=== PATIENT | male | born 1975 | race Caucasian/White ===

== ENCOUNTER 2022-03-21 08:01 | Emergency (ER) | payer MEDICAID, SELFPAY ==
[2022-03-21] VITALS (41 sets, daily range): BP systolic 134–159; BP diastolic 84–102; PULSE 67–106; RESP 7–27; TEMP 36.7; O2SAT 95–99
--- NOTE | 2022-03-21 08:00 | RT.EKG_ITS ---
APPROVED REPORT Exam: Resting ECG Reason for Exam: sob Patient Location: E HR:100 bpm ECG Measurements Heart Rate 100 AXIS SC 159 P 48 QRSd 93 QRS 60 QT 357 T 44 QTc 462 Conclusion Sinus tachycardia...rate> 99 Low voltage, precordial leads...precordial leads <1.0mV. Sinus. Normal axis. No STEMI. I have reviewed and interpreted ECG and agree with software generated interpretation.
--- NOTE | 2022-03-21 08:16 | DI.RAD_ITS ---
Exam(s) XR PORTABLE CHEST AP EXAM: XR PORTABLE CHEST AP CLINICAL HISTORY: shortness of breath, chest pain TECHNIQUE: 2D digital imaging was performed of the chest. One image was obtained. An AP view was ob tained. COMPARISON: No exams were available for comparison FINDINGS: MEDIASTINUM: Normal. HEART: Normal. PULMONARY VASCULATURE: Normal. LUNGS: Clear. PLEURAL SPACE: No pleural effusion or pneumothorax. BONE:Within normal limits for the patient's age. OTHER FINDINGS:Normal. IMPRESSION: No acute pulmonary findings. DATA REPOSITORY: RADIATION DOSE DELIVERED:
[2022-03-21 08:37] LABS: Abs Immature Grans 0.03 10^3/uL (0.0-0.06); Absolute Basophil Count 0.06 10^3/uL (0.0-0.2); Absolute Eosinophil Count 0.12 10^3/uL (0.0-0.7); Absolute Monocyte Count 0.53 10^3/uL (0.1-0.8); Absolute Neutrophil Count 4.78 10^3/uL (1.2-6.7); Basophils % 0.8; Eosinophils % 1.5; HCT 40.6 % (40.0-50.0); HGB 13.1 g/dL (13.5-17.5); Immature Grans % 0.4; Lymphocytes % 29.4; MCH 27.9 pg (27.0-33.0); MCHC 32.3 % (32.0-36.0); MCV 86 fL (80-95); MPV 9.9 fL (8.0-11.0); Monocytes % 6.8; Neutrophils % 61.1; Platelet Count 246 10^3/uL (130-400); RDW 13.9 % (11.8-14.1); WBC 7.82 10^3/uL (4.4-10.8)
--- NOTE | 2022-03-21 08:44 | ED.GENADUL_ITS ---
Discharge Plan Disposition Patient Disposition: HOME Condition: Stable Discharge Details Clinical Impression: Weakness, Pain, dental, Otitis externa Primary Care Provider: Jj Lopez ED Provider: Cait Rodriguez Home Meds and New Rx's Prescriptions: New ciprofloxacin-dexamethasone [Ciprodex] 0.3-0.1 % drops,suspension 4 drp otic (ear) BID 7 Days Qty: 7.5 0RF amoxicillin-pot clavulanate 875-125 mg tablet 1 tab PO BID Qty: 14 0RF ondansetron 4 mg tablet,disintegrating 4 mg PO DAILY 3 Days Qty: 3 0RF No Action cyclobenzaprine 10 mg tablet 1 tab PO HS Label Comments: TAKE 1 TABLET BY MOUTH AT BEDTIME gabapentin 600 mg tablet 1 tab PO DAILY Label Comments: TAKE ONE TABLET BY MOUTH TWICE A DAY lisinopril 20 mg tablet 1 tab PO DAILY Label Comments: TAKE ONE TABLET BY MOUTH EVERY DAY omeprazole 40 mg capsule,delayed release(DR/EC) 1 cap PO BID Label Comments: TAKE ONE CAPSULE BY MOUTH TWICE A DAY meloxicam 7.5 mg tablet 1 tab PO DAILY Label Comments: TAKE ONE TABLET BY MOUTH TWICE A DAY Discharge Instructions Instructions: Otitis Externa (ED), Weakness (ED), Toothache (ED) Additional Instructions: Take Zofran as needed for nausea and vomiting Follow-up with your primary care doctor tomorrow Take the Augmentin for your dental pain and see your dentist today to schedule appointment Use the eardrops as prescribed Please return or be reassessed should you develop new or worsening complaints Take Tylenol as needed for your headache Referrals: Jj Lopez [Primary Care Provider] - 1 day Discharge Data Discharge Date/Time-TO BE ENTERED AT DEPARTURE: 03/21/22 12:04 Medical Decision Making 2 troponins and EKG negative Patient reports dental pain and left otitis externa, treated with Augmentin and Ciprodex drops Had a stress test performed 1 year ago that did not show any abnormality per my review Patient feeling improvement at time of discharge home Will need close outpatient reassessment in 24 to 48 hours with primary care physician Discharged home in stable condition with stable vital Given low threshold to return with new or worsening complaints Medical Records Medical records reviewed: Yes I reviewed the patient's medical records. Lab Data Lab results reviewed: Yes I reviewed the patient's lab results. HPI General Date/Time Provider Initiated Documentation: 03/21/22 08:15 . HPI Narrative: This 46-year-old male presents with report of nausea, light hearing and chest, nausea started this morning. Patient states he felt great yesterday with exertion. 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 He had a dull ache in his chest several times with exertion. Denies any calf pain or swelling. 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 Smokes tobacco on a daily basis. Father had for stroke at 65. Mother on nitroglycerin but unsure of her cardiac history. Reports he had a stress test a year and a half ago. Unsure of results. Denies any cough, fever or known sick contacts. Feels short short of breath with exertion. Related Data Home Medications Medication Instructions Recorded Confirmed amoxicillin 875 mg-potassium 1 tab PO BID #14 tabs 03/21/22 clavulanate 125 mg tablet ciprofloxacin 0.3 %-dexamethasone 4 drp otic (ear) BID 7 days #7.5 mL 03/21/22 0.1 % ear drops,suspension (Ciprodex) cyclobenzaprine 10 mg tablet 1 tab PO HS 03/21/22 03/21/22 gabapentin 600 mg tablet 1 tab PO DAILY 03/21/22 03/21/22 lisinopril 20 mg tablet 1 tab PO DAILY 03/21/22 03/21/22 meloxicam 7.5 mg tablet 1 tab PO DAILY 03/21/22 03/21/22 omeprazole 40 mg capsule,delayed 1 cap PO BID 03/21/22 03/21/22 release ondansetron 4 mg disintegrating 4 mg PO DAILY 3 days #3 tabs 03/21/22 tablet Previous Rx's Medication Instructions Recorded amoxicillin 875 mg-potassium 1 tab PO BID #14 tabs 03/21/22 clavulanate 125 mg tablet ciprofloxacin 0.3 %-dexamethasone 4 drp otic (ear) BID 7 days #7.5 mL 03/21/22 0.1 % ear drops,suspension (Ciprodex) ondansetron 4 mg disintegrating 4 mg PO DAILY 3 days #3 tabs 03/21/22 tablet Allergies Allergy/AdvReac Type Severity Reaction Status Date / Time cephalexin [From Keflex] Allergy Severe GI Bleeding Unverified 03/21/22 08:30 General Stated Complaint: Chest Pain HAYLEY: 3 Review of Systems All systems reviewed & are unremarkable except as noted in HPI and below PFSH All Active Problems (Updated 03/21/22 @ 11:51 by MIS Vogel) Weakness (Acute) Pain, dental (Acute) Otitis externa (Acute) Social History Smoking/Tobacco Use Status: Current every day Tobacco Type: cigarettes Smoking risk assessment performed?: Yes Alcohol Intake: never Drug use: Never Substance use type: does not use Do you feel safe at home: Yes Do you feel safe in your relationship?: Yes Exam Const General: cooperative, comfortable and no acute distress [facility] Throat image: 1. Fracture noted, no soft tissue swelling, nontender, no evidence of Yudith's angina, no evidence of deep space infection Other: Left otitis externa, serosanguineous drainage noted from last ear, no mastoid tenderness Eyes Pupils: PERRL Neck Other: No stridor Resp Effort & Inspection: normal respiratory effort Auscultation: clear to auscultation bilaterally Cardio Rate: regular rate Rhythm: regular rhythm Other: no GI Inspection: normal to inspection Other: nTender abdominal exam, no abdominal bruit or pulsatile mass Skin General skin exam: no rashes or lesions noted Neuro General: patient alert and patient oriented x3 Extrem Other: no calf swelling or tenderness Course Vital Signs Vital signs: Vital Signs Temperature 36.7 C 03/21/22 08:06 Pulse 106 H 03/21/22 08:06 Respiratory Rate 18 03/21/22 08:06 Blood Pressure 158/92 H 03/21/22 08:06 Pulse Oximetry 99 03/21/22 08:06 Temperature 36.7 C 03/21/22 08:06 Temperature Source Temporal Artery Scan 03/21/22 08:06 Pulse 81 03/21/22 08:31 Pulse 89 03/21/22 08:31 Respiratory Rate 14 03/21/22 08:31 Respiratory Effort Non-Labored 03/21/22 08:23 Respiratory Depth Normal 03/21/22 08:23 Respiratory Pattern Normal 03/21/22 08:23 Blood Pressure 134/84 03/21/22 08:31 Blood Pressure Mean 97 03/21/22 08:31 Blood Pressure Position Sitting 03/21/22 08:06 Pulse Oximetry 96 03/21/22 08:31 Oxygen Delivery Method Room Air 03/21/22 08:06 Oxygen Flow Rate 0 03/21/22 08:06 Lab/Test Results Lab/Test Results: Laboratory Tests Range/Units 03/21/22 08:21 WBC (4.4-10.8) 10^3/uL 7.82 RBC (4.36-5.78) 10^6/uL 4.70 Hgb (13.5-17.5) g/dL 13.1 L Hct (40.0-50.0) % 40.6 MCV (80-95) fL 86 MCH (27.0-33.0) pg 27.9 MCHC (32.0-36.0) % 32.3 RDW (11.8-14.1) % 13.9 Plt Count (130-400) 10^3/uL 246 MPV (8.0-11.0) fL 9.9 Immature Gran % 0.4 Neutrophils % 61.1 Lymphocytes % 29.4 Monocytes % 6.8 Eosinophils % 1.5 Basophils % 0.8 Nucleated RBC % (0.0-0.3) % 0.0 Absolute Neutrophils (1.2-6.7) 10^3/uL 4.78 Absolute Lymphocytes (1.2-3.4) 10^3/uL 2.30 Absolute Monocytes (0.1-0.8) 10^3/uL 0.53 Absolute Eosinophils (0.0-0.7) 10^3/uL 0.12 Absolute Basophils (0.0-0.2) 10^3/uL 0.06 PAWSS Have you Been Recently Intoxicated or Drunk Within the Last 30 days?: No Have you Ever Experienced Previous Episodes of Alcohol Withdrawal?: No Have you ever Experienced Withdrawal Seizures?: No Have you ever Experienced Delirium Tremens(DT)s?: No Have you ever undergone Alcohol Rehabilitation Treatment (i.e, inpt ot outpatient treatment programs)?: No Have you ever Experienced Blackouts?: No Have you ever Combined Alcohol with other Downers within the last 90 days?: No Have you ever Combined Alcohol with any other Substance of Abuse during the last 90 days?: No Result: 0
[2022-03-21] MEDS: Aspirin 81 MG CHEW 324 MG CH (08:47)
[2022-03-21] MEDS: Ondansetron 4 MG/2 ML VIAL IVP (08:47)
[2022-03-21] MEDS: Normal Saline 500 ML IV (08:47)
[2022-03-21 08:58] LABS: ALT 32 U/L (16-63); AST 17 U/L (15-37); Alkaline Phosphatase 79 U/L (46-116); Anion Gap 6.2 mmol/L (3-11); BUN 15 mg/dL (7-18); Bilirubin, Total 0.2 mg/dL (0.2-1.0); CO2 28.8 mmol/L (21.0-32.0); CREATININE 1.2 mg/dL (0.70-1.30); Calcium 8.5 mg/dL (8.5-10.1); Chloride 104 mmol/L (98-107); Glucose 141 mg/dL (74-106); Magnesium 1.8 mg/dL (1.8-2.4); Potassium 4.1 mmol/L (3.5-5.1); Sodium 139 mmol/L (136-145); Total Protein 6.7 g/dL (6.4-8.2); Troponin I < 50 ng/L (<or=60)
[2022-03-21 08:59] LABS: Source Nasal/Nares
--- OUTSIDE RECORDS SUMMARY | 2022-03-21 09:28 | XMS_ITS | Continuity of Care Document ---
:1975 Author Organization [facility] Address [address] [place] [address] Care Team Providers Name Role Phone Carolina Aguirre Primary Care Physician Kwaku Joshi Attending Physician Allergies, Adverse Reactions, Alerts Allergen Type Severity Reaction Last Updated Verified Status cephalexin Allergy unknown June 29, 2020 Y Ac tive Medications Active Medications Medication Dose Units Route Sig Qty Start Date Status Gabapentin 300 MG ORAL THREE TIMES A DAY PRN For Pain April 08, 2020 Active Ibuprofen 600 MG ORAL THREE TIMES A DAY PRN For Pain April 08, 2020 Active Discontinued Medications Medication Dose Units Route Sig Qty Start Date Discontinu ed Date Status Levofloxacin 750 MG ORAL DAILY 10 April 08, 2020 Octob er 2019 Discontinued Problem List Active Problems Medical Problem Onset Date Status Epididymo-orchitis Active Inactive/Resolved Problems Medical Problem Onset Date Status Testicular abscess Inactive Heart palpitations Inactive Vaso-vagal reaction Inactive Left epididymitis Inactive Procedures Procedure Date Status ECHO Complete June 18, 2020 completed INTERFACE ELECTROCARDIOGRAM June 10, 2020 completed US Testicles (Scrotal) June 04, 2020 completed US Testicles (Scrotal) April 23, 2020 completed Hip 2 vw Min RT April 08, 2020 completed Lumbar Spine 2-3 vw April 08, 2020 completed US Testicles (Scrotal) April 08, 2020 completed Relevant Diagnostic Tests and/or Laboratory Data Laboratory Results Test Date/Time Result Interp. Ref. Range Result Comment POC Urinalysis Method April 09, 2020 Clinitek Auto 8:35am Urine Color (Manual) April 09, 2020 Yellow 8:35am Urine Clarity (Manual) April 09, 2020 Clear 8:35am POC Urine Glucose April 09, 2020 Negative 8:35am POC Urine Bilirubin April 09, 2020 Negative Confirmation 8:35am Urine Ketones (Manual) April 09, 2020 Negative 8:35am Urine Specific [place] April 09, 2020 1.025 (Manual) 8:35am POC Urine RBC April 09, 2020 Trace Intact 8:35am Urine pH (Manual) April 09, 2020 5.5 8:35am POC Urine Protein April 09, 2020 Negative Confirmation 8:35am Urine Urobilinogen April 09, 2020 0.2 (Manual) 8:35am Urine Nitrite (Manual) April 09, 2020 Negative 8:35am Urine Leukocyte April 09, 2020 Negative Esterase (Manual) 8:35am White Blood Count June 11, 2020 11.14 1000/mm3 High 4.8-10.8 12:25am Red Blood Count June 11, 2020 5.37 M/mm3 4.70-6.00 12:25am Hemoglobin June 11, 2020 15.1 g/dL 14.0-18.0 12:25am Hematocrit June 11, 2020 46.7 % 42-52 12:25am Mean Corpuscular June 11, 2020 87.0 fL 80.0-94.0 Volume 12:25am Mean Corpuscular June 11, 2020 28.1 pg 27-31 Hemoglobin 12:25am Mean Corpuscular June 11, 2020 32.3 g/dL Low 33-37 Hemoglobin Concent 12:25am Red Cell Distribution June 11, 2020 14.1 % 11.5-14.5 Width 12:25am Platelet Count June 11, 2020 276 1000/mm3 140-440 12:25am Mean Platelet Volume June 11, 2020 10.3 fL 7.4-10.4 12:25am Neutrophils (%) (Auto) June 11, 2020 70.9 % 40.0-72. 0 12:25am Lymphocytes (%) (Auto) June 11, 2020 20.0 % 17-45 12:25am Monocytes (%) (Auto) June 11, 2020 6.3 % 3-11 12:25am Eosinophils (%) (Auto) June 11, 2020 1.6 % 0-3 12:25am Basophils (%) (Auto) June 11, 2020 0.7 % 0-1 12:25am Immature Granulocyte % June 11, 2020 0.5 % 0-1 (Auto) 12:25am Neutrophils # (Auto) June 11, 2020 7.89 1000/mm3 High 1.4-6.5 12:25am Lymphocytes # (Auto) June 11, 2020 2.23 1000/mm3 1.2-3.4 12:25am Monocytes # (Auto) June 11, 2020 0.70 1000/mm3 0.0-0.8 12:25am Eosinophils # (Auto) June 11, 2020 0.18 1000/mm3 0.0-0.7 12:25am Basophils # (Auto) June 11, 2020 0.08 1000/mm3 0.0-0.1 12:25am Absolute Immature June 11, 2020 0.1 0-1 Granulocyte (auto 12:25am Differential Method June 11, 2020 Automated 12:25am Sodium Level June 11, 2020 138 mmol/L 137-145 12:25am Potassium Level June 11, 2020 3.6 mmol/L 3.6-5.0 12:25am Chloride Level June 11, 2020 103 mmol/L 98-107 12:25am Carbon Dioxide Level June 11, 2020 29 mmol/L 22-30 12:25am Anion Gap June 11, 2020 6 Low 7-16 12:25am Blood Urea Nitrogen June 11, 2020 13 mg/dL 8-26 12:25am Creatinine June 11, 2020 0.97 mg/dL 0.66-1.25 12:25am Glomerular Filtration June 11, 2020 > 60 mL/min 60.0- Rate Calc 12:25am Glucose Level June 11, 2020 125 mg/dL High 70-100 12:25am Calcium Level June 11, 2020 9.1 mg/dL 8.4-10.2 12:25am Calcium Adjusted for June 11, 2020 9.3 mg/dL 8.4-10.2 Albumin 12:25am Total Bilirubin June 11, 2020 0.3 mg/dL 0.2-1.3 12:25am Aspartate Amino Transf June 11, 2020 34 U/L 17-59 (AST/SGOT) 12:25am Alanine June 11, 2020 48 U/L As of 01/08, the Reference Range for ALT/SGPT for adult patients has been updated. Aminotransferase 12:25am The Refe rence Range for ALT/SGPT has not been established for patients <18 years of age. (ALT/SGPT) Troponin I June 11, 2020 < 0.012 ng/mL 0-0.034 Refere nce Range: <0.034 ng/mL 12:25am AMI Cut-off 0 .120 ng/mL The result s of this assay can be falsely decreased in patients who consume Biotin. Total Protein June 11, 2020 7.4 g/dL 6.3-8.2 12:25am Albumin June 11, 2020 4.1 g/dL 3.5-5.0 12:25am Alkaline Phosphatase June 11, 2020 92 U/L 38-126 12:25am Chief Complaint and Reason for Visit Encounter Admit Date Chief Complaint Reason for Visit Departed Clinical June 04, 2020 Orchitis and epididymitis 2:17pm Hospital Discharge Instructions No known hospital discharge instructions. Hospital Discharge Medications Medication Dose Units Route Sig Qty Days Order Date Status In structions Gabapentin 300 MG ORAL April 08, Active TIMES A 2019 DAY PRN For Pain Ibuprofen 600 MG ORAL April 08, Active TIMES A 2019 DAY PRN For Pain Levofloxacin 750 MG ORAL DAILY April 08 ued 2019 Encounters Encounter Facility Location Admit/Visit Discharge/Departure Atte nding Date Date Provider Departed [facility] June 29June 29, 2020 Meri bowen [facility] 2019 2:41pm 3:05pm Kwaku agustinaer Services Office Visit Departed [facility] June 18June 18, 2020 Arianne hopkins [facility] 2019 [facility] June 10June 11, 2020 [facility] 2020 Gigi velez [facility] 2019 2:17pm 2:18pm [facility] 23[facility], 2020 Adi [facility] 2019 8:43am 8:44am [facility], [facility] April 09, 2020 9:40 am Adi [facility] 8:23am Kwaku ovider Services Office Visit Departed [facility] Emergency April 08, 2020 April 08, 2020 10:10p m [facility], 2020 April 08, 2020 10:07a m Timothy [facility] 10:06am [facility], 2020 April 08, 2020 12:39p m [facility] 10:03am Departed [facility] Emergency April 08, 2020 April 08, 2020 1:22am [facility] Department 12:35am Functional Status Query Response Date Recorded Comment Comprehension Ability Understands Concepts April 08, 2020 12:50am Query Response Date Recorded Comment Living Situation Home June 11, 2020 1:27am Immunizations No known immunizations. Plan of Care No Known Plan of Care Information Social History Query Response Date Recorded Comment Alcohol Use No June 11, 2020 1:19am Smoking Status Current every day smoker June 29, 2020 2:50pm Substance Use Treatment No June 11, 2020 1:19am Substance/Street Drug Use No June 11, 2020 1:19am alcohol intake frequency holidays/special occasions June 11 1:19am only Query Response Start Date Stop Date Smoking Status Current every day smoker Vital Signs Vital Reading Result Reference Range Collection Date/ Time Height 6 ft 4 in June 29, 2020 2:47pm Weight n/a Temperature 97.4 F 97.6 F-99.6 F June 29, 2020 2:47pm Pulse 114 BPM 60-100 June 29, 2020 2:47pm Respiration 18 RPM 12-24 June 29, 2020 2:47pm Pulse Oximetry 99 % 95-100 June 11, 2020 1:27am Blood Pressure Systolic 118 100-140 June 29, 2020 2:47pm Blood Pressure Diastolic 88 50-85 June 29, 2020 2:47pm Body Mass Index 53.5 April 09, 2020 8: 30am
--- OUTSIDE RECORDS SUMMARY | 2022-03-21 09:28 | XMS_ITS | Continuity of Care Document ---
:1975 Author Organization [facility] Address [address] [place] [address] Support Name Relationship Address Phone Jj Lopez JR Primary Care Provider Alicia FUENTES [phone] [address] [place] [address] Jj Lopez JR Referring Provider Arcadiaisatu FUENTES [address] [place] [address] Mackenzie Suarez Attending Provider [facility] [address] [place] [address] Allergies, Adverse Reactions, Alerts Allergen Type Severity Reaction Last Updated Verified Status cephalexin Allergy gi upset October 11, 2021 Y Ac tive Medications Active Medications Medication Dose Units Route Sig Qty Days Start Date St atus Gabapentin 300 MG ORAL THREE TIMES April 08, 2020 Active A DAY PRN For Pain Ibuprofen 600 MG ORAL THREE TIMES April 08, 020 Active A DAY PRN For Pain Metoprolol Tartrate 50 MG ORAL TWICE A DAY 60 February 22, 2021 Active Erythromycin 1 APPLIC LEFT EYE DAILY 3.5 February 22, 021 Active Cyclobenzaprine MG August 13, Active 2020 Gabapentin MG August 13, A ctive 2020 Meloxicam MG August 13, Ac tive 2020 Amoxicillin-Pot 1 TAB ORAL TWICE A DAY , Active Clavulanate 2021 [Augmentin] Discontinued Medications Medication Dose Units Route Sig Qty Days Start Date Discontin ued Status Date Levofloxacin 500 MG ORAL DAILY 10 19 AugustSeptember 09, Discontinued 2019 Levofloxacin 750 MG ORAL DAILY April 08June 2 0, Discontinued 2019 2019 Amoxicillin 875 MG ORAL TWICE A 14 August 14, Decemb er 12, Discontinued DAY 2020 2020 Problem List Active Problems Medical Problem Onset Date Status Multinodular goiter (nontoxic) Active Multinodular goiter (nontoxic) Active Epididymo-orchitis Active Change in bowel function Active Morbid obesity due to excess calories Ac tive Hearing loss, bilateral Active Smoker Active Inactive/Resolved Problems Medical Problem Onset Date Status Testicular abscess Inactive Heart palpitations Inactive Palpitations Inactive Acute viral syndrome Inactive Conjunctivitis Inactive Otitis media Inactive Vaso-vagal reaction Inactive Left acute suppurative otitis media Inac tive Left epididymitis Inactive Hypertension Inactive Procedures Procedure Date Status US Thyroid Soft Tissue Neck September 15, [address] Chest w/o Contrast September 08, 2021 completed US Testicles (Scrotal) February 01, 2021 completed DIAGNOSTIC COLONOSCOPY January 25, 2021 active INTERFACE ELECTROCARDIOGRAM December 23, 2020 completed Relevant Diagnostic Tests and/or Laboratory Data Laboratory Results Test Date/Time Result Interp. Ref. Range Result Comment White Blood Count December 23, 2020 8.70 1000/mm3 4.8-10.8 3:40am Red Blood Count December 23, 2020 5.05 M/mm3 4.70-6.00 3:40am Hemoglobin December 23, 2020 14.3 g/dL 14.0-18.0 3:40am Hematocrit December 23, 2020 43.3 % 42-52 3:40am Mean Corpuscular December 23, 2020 85.7 fL 80.0-94.0 Volume 3:40am Mean Corpuscular December 23, 2020 28.3 pg 27-31 Hemoglobin 3:40am Mean Corpuscular December 23, 2020 33.0 g/dL 33-37 Hemoglobin Concent 3:40am Red Cell December 23, 2020 13.9 % 11.5-14.5 Distribution Width 3:40am Platelet Count December 23, 2020 258 1000/mm3 140-440 3:40am Mean Platelet December 23, 2020 10.1 fL 7.4-10.4 Volume 3:40am Neutrophils (%) December 23, 2020 57.1 % 40.0-72.0 (Auto) 3:40am Lymphocytes (%) December 23, 2020 33.7 % 17-45 (Auto) 3:40am Monocytes (%) December 23, 2020 6.0 % 3-11 (Auto) 3:40am Eosinophils (%) December 23, 2020 2.2 % 0-3 (Auto) 3:40am Basophils (%) December 23, 2020 0.7 % 0-1 (Auto) 3:40am Immature December 23, 2020 0.3 % 0-1 Granulocyte % 3:40am (Auto) Neutrophils # December 23, 2020 4.97 1000/mm3 1.4-6.5 (Auto) 3:40am Lymphocytes # December 23, 2020 2.93 1000/mm3 1.2-3.4 (Auto) 3:40am Monocytes # (Auto) December 23, 2020 0.52 1000/mm3 0.0-0.8 3:40am Eosinophils # December 23, 2020 0.19 1000/mm3 0.0-0.7 (Auto) 3:40am Basophils # (Auto) December 23, 2020 0.06 1000/mm3 0.0-0.1 3:40am Absolute Immature December 23, 2020 0.0 0-1 Granulocyte (auto 3:40am Differential December 23, 2020 Automated Method 3:40am Sodium Level December 23, 2020 140 mmol/L 137-145 3:40am Potassium Level December 23, 2020 3.5 mmol/L Low 3.6-5.0 3:40am Chloride Level December 23, 2020 105 mmol/L 98-107 3:40am Carbon Dioxide December 23, 2020 29 mmol/L 22-30 Level 3:40am Anion Gap December 23, 2020 6 Low 7-16 3:40am Blood Urea December 23, 2020 11 mg/dL 8-26 Nitrogen 3:40am Creatinine December 23, 2020 0.85 mg/dL 0.66-1.25 3:40am Glomerular December 23, 2020 > 60 mL/min 60.0- Filtration Rate 3:40am Calc Glucose Level December 23, 2020 121 mg/dL High 70-100 3:40am Calcium Level December 23, 2020 8.5 mg/dL 8.4-10.2 3:40am Magnesium Level December 23, 2020 2.0 mg/dL 1.6-2.3 3:40am Troponin I December 23, 2020 < 0.012 ng/mL 0-0.034 Referen ce Range: <0.034 ng/mL 3:40am AMI Cut-off 0 .120 ng/mL The result s of this assay can be falsely decreased in patients who consume Biotin. SARS-CoV-2 RNA September 29, Negative Note: Thi s RT-PCR assay is intended for the in vitro qualitative detection of nucleic acid from SARS-CoV-2. (RT-PCR) 2021 8:54pm This test has not been FDA cleared or approved. This test has been authorized by the FDA under an Emergency Use Authorization (EUA) for use by authorized laboratories. Fact sheets fo r providers can be found at: fda.gov/media /065778/download Fact sheets fo r patients can be found at: Pikimal.gov/media /793259/download Chief Complaint and Reason for Visit Encounter Admit Date Chief Complaint Reason for Visit Departed October 11, 2021 NEW PATIENT Hearing loss, b ilateral Physician/Provider 11:31am Multinodular goiter (nontoxic) Office Visit Hospital Discharge Instructions No known hospital discharge instructions. Hospital Discharge Medications Medication Dose Units Route Sig Qty Days Order Status Instru ctions Date Levofloxacin 500 MG ORAL DAILY August Discontin ued 2019 Gabapentin 300 MG ORAL THREE April 08, Active TIMES 2020 A DAY PRN For Pain Ibuprofen 600 MG ORAL THREE April 08, Active TIMES 2020 A DAY PRN For Pain Levofloxacin 750 MG ORAL DAILY 10 April 08, Discontin ued 2019 Metoprolol 50 MG ORAL TWICE 60 February 22, Active Tartrate A DAY 2020 Erythromycin 1 APPLIC LEFT DAILY 3.5 February 22, Active EYE 2020 Cyclobenzaprine MG August Gabapentin MG August Meloxicam MG August Amoxicillin 875 MG ORAL TWICE 14 16 August Discontinu ed A DAY 2020 Amoxicillin-Pot 1 TAB ORAL TWICE 29 September Active Clavulanate A DAY 2021 Encounters Encounter Facility Location Admit/Visit Discharge/Departure Atte nding Date Date Provider Departed [facility] October 11October 11, 2021 Darrick concepcion, [facility] 2021 11:31am 12:03pm Mackenzie her Office Visit Departed [facility] September 29September 29, 2021 [facility] 2021 6:31pm 9:12pm Departed [facility] September 15September 15, 2021 Maria Teresa [facility] 2021 1:43pm 1:44pm [facility] Departed [facility] September 08September 08, 2021 Casper mercer JR [facility] 2020 5:01pm 5:02pm [facility] Departed [facility] August 13August 14, 2021 [facility], 2021 February 22, 2021 1:38pm [facility] 12:47pm Departed [facility] February 10, 2021 February 10, 2021 3:07pm Adi [facility] 2:44pm [facility] Office Visit Departed [facility] February 01, 2021 February 01, 2021 3[facility]30[facility] January [facility], 2021 January 25, 2021 3:09pm [facility], 2021 January 19, 2021 5[facility]03[facility] December 23December 23, 2020 5:05am [facility] 2020 3:24am [facility] December 07December 07, 2020 7:46am [facility] 7:45am Melody Encounter Diagnosis Onset Date Hearing loss, bilateral Multinodular goiter (nontoxic) Functional Status Query Response Date Recorded Comment Comprehension Ability Understands Concepts February 22, 2021 1:05pm Mood/Behavior Appropriate February 22, 2021 1:05pm Speech Appropriate September 29, 2021 9:00pm Query Response Date Recorded Comment Living Situation Home September 29, 2021 9:08pm With Family Immunizations Immunization Name Date Given Type Covid-19 30mcg/0.3ml Pfizer (Purple top) December 29, 2020 Historical Covid-19 30mcg/0.3ml Pfizer (Purple top) January 19, 2021 Historical Plan of Care No Known Plan of Care Information Social History Query Response Date Recorded Comment Alcohol Use Yes September 29, 2021 9:03pm rare Smoking Status Current every day smoker October 09, 2021 7:24pm Substance Use Treatment No September 29, 2021 9:03pm Substance/Street Drug Use Yes September 29, 2021 9:03p m occasional alcohol intake frequency holidays/special September 29, 2021 9:03p m occasions only substance use type marijuana September 29, 2021 9:03pm Query Response Start Date Stop Date Smoking Status Current every day smoker Vital Signs Vital Reading Result Reference Range Collection Date/ Time Height 6 ft 4 in September 29, 2021 8:52pm Weight n/a Temperature 98.2 F 97.6 F-99.6 F September 29, 2021 8:52pm Pulse 100 BPM 60-100 September 29, 2021 8:52pm Respiration 18 RPM 12-24 September 29, 2021 8:52pm Pulse Oximetry 100 % 95-100 September 29, 2021 8:52pm Blood Pressure Systolic 130 100-140 October 11, 2021 11:44am Blood Pressure Diastolic 90 50-85 Februar 2021 11:44am Body Mass Index 56.2 January 13, 2021 8:40 am
--- OUTSIDE RECORDS SUMMARY | 2022-03-21 09:28 | XMS_ITS | Continuity of Care Document ---
:1975 Author Organization [facility] Address [address] [place] [address] Support Name Relationship Address Phone Kwaku Joshi Attending Provider [facility] [phone], [place] [address] Kwaku Joshi Referring Provider [facility] [address] [facility], [place] [address] Jj Lopez JR Primary Care Provider Alicia FUENTES Unav[facility] ble [address] [place] [address] Allergies, Adverse Reactions, Alerts Allergen Type Severity Reaction Last Updated Verified Status cephalexin Allergy unknown September 24, 2020 Y Ac tive Medications Active Medications Medication Dose Units Route Sig Qty Days Start Date St atus Gabapentin 300 MG ORAL THREE TIMES A DAY PRN For April 08, 2020 Active Pain Ibuprofen 600 MG ORAL THREE TIMES A DAY PRN For April 08, 2020 Active Pain Discontinued Medications Medication Dose Units Route Sig Qty Days Start Date Discontin ued Status Date Levofloxacin 500 MG ORAL DAILY 10 August 30, Decem kenzie 31, Discontinued 2019 2019 Levofloxacin 750 MG ORAL DAILY April 08June 11 0, Discontinued 2019 2019 Problem List Active Problems Medical Problem Onset Date Status Epididymo-orchitis Active Inactive/Resolved Problems Medical Problem Onset Date Status Testicular abscess Inactive Heart palpitations Inactive Vaso-vagal reaction Inactive Left epididymitis Inactive Procedures Procedure Date Status US Testicles (Scrotal) August 27, 2020 completed CTA Angio Chest w/wo Contrast August 23, 2020 completed ECHO Complete June 18, 2020 completed INTERFACE [...] April 09, 2020 Negative 8:35am Urine Specific [place] April 09, 2020 1.025 (Manual) 8:35am POC Urine RBC April 09, 2020 Trace Intact 8:35am Urine pH (Manual) April 09, 2020 5.5 8:35am POC Urine Protein April 09, 2020 Negative Confirmation 8:35am Urine Urobilinogen April 09, 2020 0.2 (Manual) 8:35am Urine Nitrite (Manual) April 09, 2020 Negative 8:35am Urine Leukocyte April 09, 2020 Negative Esterase (Manual) 8:35am White Blood Count August 20, 12.00 1000/mm3 High 4.8-10.8 2019 11:01am Red Blood Count August 20, 5.37 M/mm3 4.70-6.00 2019 11:01am Hemoglobin August 20, 15.1 g/dL 14.0-18.0 2019 11:01am Hematocrit August 20, 47.3 % 42-52 2019 11:01am Mean Corpuscular August 20, 88.1 fL 80.0-94.0 Volume 2019 11:01am Mean Corpuscular August 20, 28.1 pg 27-31 Hemoglobin 2019 11:01am Mean Corpuscular August 20, 31.9 g/dL Low 33-37 Hemoglobin Concent 2019 11:01am Red Cell Distribution August 20, 14.0 % 11.5-14.5 Width 2019 11:01am Platelet Count August 20, 328 1000/mm3 141-689 6766 11:01am Mean Platelet Volume August 20, 10.9 fL High 7.4-10.4 2019 11:01am Neutrophils (%) (Auto) August 20, 62.1 % 40.0-72.0 2019 11:01am Lymphocytes (%) (Auto) August 20, 29.7 % 17-45 2019 11:01am Monocytes (%) (Auto) August 20, 5.9 % 3-11 2019 11:01am Eosinophils (%) (Auto) August 20, 1.3 % 0-3 2019 11:01am Basophils (%) (Auto) August 20, 0.6 % 0-1 2019 11:01am Immature Granulocyte % August 20, 0.4 % 0-1 (Auto) 2019 11:01am Neutrophils # (Auto) August 20, 7.45 1000/mm3 High 1.4-6.5 2019 11:01am Lymphocytes # (Auto) August 20, 3.56 1000/mm3 High 1.2-3.4 2019 11:01am Monocytes # (Auto) August 20, 0.71 1000/mm3 0.0-0.8 2019 11:01am Eosinophils # (Auto) August 20, 0.16 1000/mm3 0.0-0.7 2019 11:01am Basophils # (Auto) August 20, 0.07 1000/mm3 0.0-0.1 2019 11:01am Absolute Immature August 20, 0.1 0-1 Granulocyte (auto 2019 11:01am Differential Method August 20 Automated 2019 11:01am Sodium Level August 20, 137 mmol/L 527-354 3264 11:01am Potassium Level August 20, 4.3 mmol/L 3.6-5.0 2019 11:01am Chloride Level August 20, 105 mmol/L 98-107 2019 11:01am Carbon Dioxide Level August 20, 26 mmol/L 22-30 2019 11:01am Anion Gap August 20, 6 Low 7-16 2019 11:01am Blood Urea Nitrogen August 20, 12 mg/dL 8-2019 11:01am Creatinine August 20, 0.95 mg/dL 0.66-1.25 2019 11:01am Glomerular Filtration August 20, > 60 mL/min 60.0- Rate Calc 2019 11:01am Glucose Level August 20, 101 mg/dL High 70-100 2019 11:01am Calcium Level August 20, 9.4 mg/dL 8.4-10.2 2019 11:01am Calcium Adjusted for August 20, 9.6 mg/dL 8.4-10.2 Albumin 2019 11:01am Total Bilirubin August 20, 0.5 mg/dL 0.2-1.3 2019 11:01am Aspartate Amino Transf August 20, 34 U/L 17-59 (AST/SGOT) 2019 11:01am Alanine August 20, 50 U/L As of 01/09/20 , the Reference Range for ALT/SGPT for adult patients has been updated. Aminotransferase 2019 11:01 The Re ference Range for ALT/SGPT has not been established for patients <18 years of age. (ALT/SGPT) Troponin I June 11, 2020 < 0.012 ng/mL 0-0.034 Refere nce Range: <0.034 ng/mL 12:25 AMI Cut-off 0 .120 ng/mL The result s of this assay can be falsely decreased in patients who consume Biotin. Total Protein August 20, 7.3 g/dL 6.3-8.2 2019 11: Albumin August 20, 4.0 g/dL 3.5-5.0 2019 11: Cholesterol Level August 20, 229 mg/dL High 59-199 2019 11:01am HDL Cholesterol August 20, 33 mg/dL Low 40-60 The [place] ional Cholesterol Education Program (NCEP) has set the following guidelines (reference values) for cholesterol, HDL: 2019 11:01 Low HDL: <40 mg/dL Normal: 40-60 mg/dL Desirable: >60 mg/dL LDL Cholesterol August 20, 145.0 mg/dL High 0-129 2019 11:01 VLDL Cholesterol August 20, 51.0 mg/dL High 0-32 2019 11:01am Cholesterol/HDL Ratio August 20, 6.93 High 0-3.9 2019 11:01am Triglycerides Level August 20, 255 mg/dL High 0-149 2019 11:01am Alkaline Phosphatase August 20, 103 U/L 38-126 2019 11:01am Thyroid Stimulating August 20, 1.89 mlU/L 0.47-4.68 The results of Hormone (TSH) 2020 07:01am this assa y can be falsely decreased in patients who consume Biotin . Chief Complaint and Reason for Visit Encounter Admit Date Chief Complaint Reason for Visit Departed September 24, 2020 11:32am Follow Up Epididy mo-orchitis Physician/Provider Office Visit Hospital Discharge Instructions No known hospital discharge instructions. Hospital Discharge Medications Medication Dose Units Route Sig Qty Days Order Date Status In structions Levofloxacin 500 MG ORAL DAILY August Discontin ued 2019 Gabapentin 300 MG ORAL THREE April 08, Active TIMES A 2020 DAY PRN For Pain Ibuprofen 600 MG ORAL THREE April 08, Active TIMES A 2019 DAY PRN For Pain Levofloxacin 750 MG ORAL DAILY 10 April 08 ued 2019 Encounters Encounter Facility Location Admit/Visit Discharge/Departure Atte nding Date Date Provider Departed [facility] September 24, September 24, 2020 Meri bowen [facility] 2020 11:32am 11:54am Kwaku ovider Services Office Visit Departed [facility] September 17, September 17, 2020 Brett hart [facility] 2020 2:47pm 3:46pm Maty her Office Visit Departed [facility] August 27August 27, 2020 Meri bowen [facility] 2019 2:26pm 2:27pm [facility] 2020 [facility] 11:13am 11:14am [facility] Dep[facility] August 20August 20, 2020 [facility] 4:[facility] 4:18pm [facility] Departed [facility] June 29June 29, 2020 Meri bowen [facility] 2019 2:41pm 3:05pm Kwaku ovider Services Office Visit Departed [facility] June 18June 18, [facility] 2019 12:10pm 12:11pm [facility] 10June 11, 2020 [facility] 2019 11:46pm 1:27[facility]June 04[facility] 2020 [facility] 2:17pm 2:18pm [facility] April 23April 23, 2020 Adi [facility] 2019 8:43am 8:44am [facility] Departed [facility] April 09, 2020 April 09, 2020 9:40 am Adi [facility] 8:23am Kwaku ovider Services Office Visit Departed [facility] April 08, 2020 April 08, 2020 10:10p m [facility] 9[facility] April 08, 2020 April 08, 2020 10:07a [facility] 10:06am [facility] Departed [facility] April 08, 2020 April 08, 2020 12:39p m [facility] 10:03am Departed [facility] April 08, 2020 April 08, 2020 1:22am [facility] 12:35am Encounter Diagnosis Onset Date Epididymo-orchitis Functional Status Query Response Date Recorded Comment Comprehension Ability Understands Concepts April 08, 2020 12:50am Query Response Date Recorded Comment Living Situation Home June 11, 2020 1:27am Immunizations No known immunizations. Plan of Care No Known Plan of Care Information Social History Query Response Date Recorded Comment Alcohol Use No June 11, 2020 1:19am Smoking Status Current every day smoker September 24, 2020 11:38a m Substance Use Treatment No June 11, 2020 1:19am Substance/Street Drug Use No June 11, 2020 1:19am alcohol intake frequency holidays/special occasions June 11 1:19am only Query Response Start Date Stop Date Smoking Status Current every day smoker Vital Signs Vital Reading Result Reference Range Collection Date/ Time Height 6 ft 4 in September 24, 2020 11:36am Weight n/a Temperature 97.5 F 97.6 F-99.6 F September 24, 2020 11:36am Pulse 109 BPM 60-100 September 24, 2020 11:36am Respiration 18 RPM 12-24 September 24, 2020 11:36am Pulse Oximetry 99 % 95-100 June 11, 2020 1:27am Blood Pressure Systolic 132 100-140 September 24, 2020 11:36am Blood Pressure Diastolic 88 50-85 September 24, 2020 11:36am Body Mass Index 53.3 September 17, 2020 2:49pm
--- OUTSIDE RECORDS SUMMARY | 2022-03-21 09:28 | XMS_ITS | Continuity of Care Document ---
:1975 Author Organization [facility] Address [address] [place] [address] Care Team Providers Name Role Phone Jj Lopez JR Primary Care Physician Allergies, Adverse Reactions, Alerts Allergen Type Severity Reaction Last Updated Verified Status cephalexin Allergy gi upset September 29, 2021 Y Ac tive Medications Active Medications [...] APPLIC LEFT EYE DAILY 3.5 February 22, 2 021 Active Cyclobenzaprine MG August 13, Active [...] April 08June 11 0, Discontinued 2019 2019 Amoxicillin 875 MG ORAL TWICE A 14 August 14, Decemb er 12, Discontinued DAY 2020 2020 Problem List Active Problems Medical Problem Onset Date Status Epididymo-orchitis Active Acute viral syndrome Active Change in bowel function Active Morbid obesity due to excess calories Ac tive Left acute suppurative otitis media Acti ve Smoker Active Inactive/Resolved Problems Medical Problem Onset Date Status Testicular abscess Inactive Heart palpitations Inactive Palpitations Inactive Conjunctivitis Inactive Otitis media Inactive Vaso-vagal reaction Inactive Left epididymitis Inactive Hypertension Inactive Procedures Procedure [...] in patients who consume Biotin. SARS-CoV-2 RNA January 19, 2021 Negative This uri t is only for use under the Food and Drug Administration's (FDA) Emergency Use Authorization (EUA). This test has not been FDA cleared or approved. (RT-PCR) 1:00pm Not for screen ing. Nasal swabs ar e considered an acceptable sample type, however performance with this type has not been established. Negative resul ts do not preclude infection and should not be used as the sole basis of treatment or other patient management decisions. Negative results must be combined with clinical observations, patient history, and/or epidemiological information. Fact sheets fo r providers can be found at: [facility].gov/media /605901/download Fact sheets fo r patients can be found at: Better[employer].gov/hoopos.com /707124/download Chief Complaint and Reason for Visit Encounter Admit Date Chief Complaint Reason for Visit Departed Emergency September 29, 2021 6:31pm ALL COVID SYMPTOMS Hospital Discharge Instructions No known hospital discharge [...] Pain Levofloxacin 750 MG ORAL DAILY April 08, Discontin ued 2019 Metoprolol 50 MG ORAL TWICE 60 February 22, Active Tartrate A DAY 2020 Erythromycin 1 APPLIC LEFT DAILY 3.5 February 22, Active EYE 2020 Cyclobenzaprine MG August Gabapentin MG August Active 2020 Meloxicam MG August Active 2020 Amoxicillin 875 MG ORAL TWICE August Discontinu ed A DAY 2020 Amoxicillin-Pot 1 TAB ORAL TWICE 29 September Active Clavulanate A DAY 2021 Encounters Encounter Facility Location Admit/Visit Discharge/Departure Atte nding Date Date Provider Departed [facility] Emergency September 29September 29, 2021 [facility] Department 2021 6:31pm 9:12pm Departed [facility] September 15September 15, 2021 Maria Treesa [facility] 2021 1:43pm 1:44pm [facility] 08, 2021 Casper mercer JR [facility] 2020 5:01pm 5:02pm [facility] Departed [facility] Emergency August 13August 14, 2021 [facility] Department 2020 11:02pm 1:34am Departed [facility] Emergency February 22, 2021 February 22, 2021 1:38pm [facility] Department 12:47pm Departed [facility] February 10, 2021 February 10, 2021 3:07pm Adi [facility] 2:44pm [facility] Services Office Visit Departed [facility] DI February 01, 2021 February 01, 2021 [facility] Center Departed [facility] Surgical January 25, 2021 January 25, 2021 3:09pm Fabiola staton [facility] Center Services 12:06pm Renzo Care Departed [facility] January 19, 2021 January 19, 2021 5[facility]03[facility] December 23December 23, 2020 5:05am [facility] Department 2020 3:24am Departed [facility] December 07December 07, 2020 7:46am [facility] 2020 7:45am Melody Functional Status Query Response Date Recorded Comment Comprehension Ability Understands Concepts February 22, 2021 1:05pm Mood/Behavior Appropriate February 22, 2021 1:05pm Speech Appropriate September 29, 2021 9:00pm Query Response Date Recorded Comment Living Situation Home September 29, 2021 9:08pm With Family Immunizations Immunization Name Date Given Type Covid-19 30mcg/0.3ml Pfizer December 29, 2020 Historical Covid-19 30mcg/0.3ml Pfizer January 19, 2021 Historical Plan of Care Instructions Viral Syndrome (DC) Ear Infection ED Social History Query Response Date Recorded Comment Alcohol Use Yes September 29, 2021 9:03pm rare Smoking Status Current every day smoker September 29, 2021 9:03pm Substance Use Treatment No September 29, 2021 [...] 4 in September 29, 2021 8:52pm Weight 90.718 kg September 29, 2021 8:52pm Temperature 98.2 F 97.6 F-99.6 F September 29, 2021 8:52pm Pulse 100 BPM 60-100 September 29, 2021 8:52pm Respiration 18 RPM 12-24 September 29, 2021 8:52pm Pulse Oximetry 100 % 95-100 September 29, 2021 8:52pm Blood Pressure Systolic 159 100-140 September 29, 2021 8:52pm Blood Pressure Diastolic 89 50-85 September 29, 2021 8:52pm Body Mass Index 56.2 January 13, 2021 8:40 am
--- OUTSIDE RECORDS SUMMARY | 2022-03-21 09:28 | XMS_ITS | Continuity of Care Document ---
:1975 Author Organization [facility] Address [address] [place] [address] Care Team Providers Name Role Phone Jj Lopez JR Primary Care Physician Melody Robles Attending Physician Allergies, Adverse Reactions, Alerts Allergen [...] Laboratory Results Test Date/Time Result Interp. Ref. Result Comment Range POC Urinalysis Method April 09, 2020 Clinitek Auto 8:35am Urine Color (Manual) April 09, 2020 Yellow 8:35am Urine Clarity April 09, 2020 Clear (Manual) 8:35am POC Urine Glucose April 09, 2020 Negative 8:35am POC Urine Bilirubin April 09, 2020 Negative Confirmation 8:35am Urine Ketones April 09, 2020 Negative (Manual) 8:35am Urine Specific April 09, 2020 1.025 [place] (Manual) 8:35am POC Urine RBC April 09, 2020 Trace Intact 8:35am Urine pH (Manual) April 09, 2020 5.5 8:35am POC Urine Protein April 09, 2020 Negative Confirmation 8:35am Urine Urobilinogen April 09, 2020 0.2 (Manual) 8:35am Urine Nitrite April 09, 2020 Negative (Manual) 8:35am Urine Leukocyte April 09, 2020 Negative [...] 11:01am Platelet Count August 20, 328 1000/mm3 [phone] 11:01am Mean Platelet Volume August 20, 10.9 fL High 7.4-10.4 2019 11:01am Neutrophils (%) August 20, 62.1 % 40.0-72.0 (Auto) 2019 11:01am Lymphocytes (%) August 20, 29.7 % 17-45 (Auto) 2019 11:01am Monocytes (%) (Auto) August 20, 5.9 % 3-11 2019 11:01am Eosinophils (%) August 20, 1.3 % 0-3 (Auto) 2019 11:01am Basophils (%) (Auto) August 20, 0.6 % 0-1 2019 11:01am Immature Granulocyte August 20, 0.4 % 0-1 % (Auto) 2020 07: Neutrophils # (Auto) August 20, 7.45 1000/mm3 High 1.4-6.5 2020 07: Lymphocytes # (Auto) August 20, 3.56 1000/mm3 High 1.2-3.4 2020 07: Monocytes # (Auto) August 20, 0.71 1000/mm3 0.0-0.8 2020 07: Eosinophils # (Auto) August 20, 0.16 1000/mm3 0.0-0.7 2020 07: Basophils # (Auto) August 20, 0.07 1000/mm3 0.0-0.1 2019 11:01 Absolute Immature August 20, 0.1 0-1 Granulocyte (auto 2020 07: Differential Method August 20 Automated 2020 07: Sodium Level August 20, 137 mmol/L [phone] 11:01am Potassium Level August 20, 4.3 mmol/L 3.6-5.0 2020 07: Chloride Level August 20, 105 mmol/L 98-107 2020 07: Carbon Dioxide Level August 20, 26 mmol/L 22-30 2020 07: Anion Gap August 20, 6 Low 7-16 2020 07: Blood Urea Nitrogen August 20, 12 mg/dL 8-26 2020 07: Creatinine August 20, 0.95 mg/dL 0.66-1.25 2020 07: Glomerular Filtration August 20, > 60 mL/min 60.0- Rate Calc 2020 07: Glucose Level August 20, 101 mg/dL High 70-100 2020 07: Calcium Level August 20, 9.4 mg/dL 8.4-10.2 2020 07: Calcium Adjusted for August 20, 9.6 mg/dL 8.4-10.2 Albumin 2020 07: Total Bilirubin August 20, 0.5 mg/dL 0.2-1.3 2020 07: Aspartate Amino August 20, 34 U/L 17-59 Transf (AST/SGOT) 2020 07: Alanine August 20, 50 U/L As of 01/09/20 , the Reference Range for ALT/SGPT for adult patients has been updated. Aminotransferase 2020 07:01 The Re ference Range for ALT/SGPT has not been established for patients <18 years of age. (ALT/SGPT) Troponin I June 11, < 0.012 ng/mL 0-0.034 Reference R paris: <0.034 ng/mL 2019 12:25am AMI Cut-off 0.120 ng/mL The result s of this assay can be falsely decreased in patients who consume Biotin. Total Protein August 20, 7.3 g/dL 6.3-8.2 2019 11:01 Albumin August 20, 4.0 g/dL 3.5-5.0 2019 11: Cholesterol Level August 20, 229 mg/dL High 59-199 2019 11:01am HDL Cholesterol August 20, 33 mg/dL Low 40-60 The [place] ional Cholesterol Education Program (NCEP) has set the following guidelines (reference values) for cholesterol, HDL: 2019 11:01am Low HDL: <40 mg/dL Normal: 40-60 mg/dL Desirable: >60 mg/dL LDL Cholesterol August 20, 145.0 mg/dL High 0-129 2019 11:01am VLDL Cholesterol August 20, 51.0 mg/dL High 0-32 2019 11:01am Cholesterol/HDL Ratio August 20, 6.93 High 0-3.9 2019 11:01am Triglycerides Level August 20, 255 mg/dL High 0-149 2019 11:01am Alkaline Phosphatase August 20, 103 U/L 38-126 2019 11:01am Thyroid Stimulating August 20, 1.89 mlU/L 0.47-4.68 The results of this Hormone (TSH) 2019 11:01am assay can be falsely decrea sed in patients wh o consume Biotin . SARS-CoV-2 RNA December 07, 2020 Negative This t est is only for use under the Food and Drug Administration's (FDA) Emergency Use Authorization (EUA). This test has not been FDA cleared or approved. (RT-PCR) 11:00am Not for screen ing. Nasal swabs ar [...] r providers can be found at: fda.gov/media /089253/download Fact sheets fo r patients can be found at: fda.gov/uMentioned /420005/download Chief Complaint and Reason for Visit Encounter Admit Date Chief Complaint Reason for Visit Departed Clinical December 07, 2020 7:45am Contact with and (joseec anselmo) exposure to COVID-19 Hospital Discharge Instructions No known hospital discharge [...] DAILY 10 April 08, Discontin ued 2019 Encounters Encounter Facility Location Admit/Visit Discharge/Departure Atte nding Date Date Provider Departed [facility] December 07December 07, 2020 [facility] Melody Dep[facility]ed [facility] September 24September 24, 2020 Meri bowen, [facility] 2020 11:32am 11:54am Kwaku ovider Services Office Visit Departed [facility] September 17September 17, 2020 Brett hart [facility] 2020 2:47pm 3:46pm Maty her Office Visit Departed [facility] August 27August 27, [address] [facility] 2019 2:26pm 2:27pm [facility]August 23, 2020 [facility] 2019 11:13am 11:14am [facility] Dep[facility]ed [facility] August 20August 20, 2020 [facility] 4:17[facility] 4:18[facility] 29, 2020 Meri bowen [facility] 2019 2:41pm 3:05pm Kwaku ovider [facility] June 18June 18, [address] [facility] 2019 12:10pm 12:11pm [facility] June 10June 11, 2020 [facility] Department 2019 11:46pm 1:[facility] June 04June 04, 2020 [facility] 2019 2:17pm 2:18pm [facility] Departed [facility] April 23April 23, [address] [facility] 2019 8:43am 8:44am [facility] Departed [facility] April 09, 2020 April 09, 2020 9:40 am Adi [facility] 8:23am [facility] ovid Services Office Visit Departed [facility] Emergency April 08, 2020 April 08, 2020 10:10p m [facility] Department 9:44pm Departed [facility] DI April 08, 2020 April 08, 2020 10:07a m [facility] 10:06am [facility] Departed [facility] Emergency April 08, 2020 April 08, 2020 12:39p m [facility] Department 10:03am Departed [facility] Emergency April 08, 2020 April 08, [...]
--- OUTSIDE RECORDS SUMMARY | 2022-03-21 09:28 | XMS_ITS | Continuity of Care Document ---
:1975 Author Organization [facility] Address [address] [place] [address] Support Name Relationship Address Phone Kwaku Joshi Attending Provider [facility] Urology [address], [place] [address] Kwaku Joshi Referring Provider [facility] U[facility] [address], [place] [address] Jj Lopez JR Primary Care Provider Alicia FUENTES Unavaila ble [address] [place] [address] Allergies, Adverse Reactions, Alerts Allergen Type Severity [...] April 09, 2020 Negative 8:35am Urine Specific [place] April 09, 2020 1.025 (Manual) 8:35am POC [...] 11:01am Platelet Count August 20, 328 1000/mm3 127-065 6899 11:01am Mean Platelet Volume August 20, 10.9 [...] 11:01am Sodium Level August 20, 137 mmol/L [phone] 11:01am Potassium Level August 20, 4.3 mmol/L [...] Discharge/Departure Atte nding Date Date Provider Departed [facility] September 24, September 24, 2020 Meri bowen [facility] 2020 11:32am 11:54am Kwaku ovider Services Office Visit Departed [facility] September 17, September 17, 2020 Brett hart [facility] 2020 2:47pm 3:46pm Maty her Office Visit Departed [facility] August 27August 27, 2020 Meri bowen [facility] 2019 2:26pm 2:27pm [facility] August 23August 23, 2020 [facility] 11:13am 11:14am [facility] Departed [facility] August 20August 20, 2020 [facility] 4:17pm 4:18pm [facility] Departed [facility] June 29June 29, 2020 Meri bowen [facility] 2019 2:41pm 3:05pm Kwaku ovider Services Office Visit Departed [facility] June 18June 18, 2020 [facility] 2019 12:10pm 12:11pm [facility] June 10June 11, 2020 [facility] Department 2019 11:46pm 1:27am [facility] June 04June 04, 2020 [facility] 2:17pm 2:18pm [facility] April 23April 23, 2020 Adi [facility] 2019 8:43am 8:44am [facility] Departed [facility] April 09, 2020 April 09, 2020 9:40 am Adi [facility] 8:23am Kwaku ovider Services Office Visit Departed [facility] Emergency April 08, 2020 April 08, 2020 10:10p m [facility] Department 9:44pm [facility] April 08, 2020 April 08, 2020 10:07a [facility] 10:06am [facility] Departed [facility] April 08, 2020 April 08, 2020 12:39p m [facility] Department 10:03am Departed [facility] April 08, 2020 April 08, [...]
--- OUTSIDE RECORDS SUMMARY | 2022-03-21 09:29 | XMS_ITS | Continuity of Care Document ---
:1975 Author Organization [facility] Address [address] [place] [address] Support Name Relationship Address Phone Kwaku Joshi Attending Provider [facility] U[facility] [phone] [place] [address] Kwaku Joshi Referring Provider [facility] [address], [place] [address] Jj Lopez JR Primary Care Provider Alicia FUENTES Unavaila ble [address] [place] [address] Allergies, Adverse Reactions, Alerts Allergen Type Severity [...] April 09, 2020 Negative 8:35am Urine Specific [place] April 09, 2020 1.025 (Manual) 8:35am POC [...] 11:01am Platelet Count August 20, 328 1000/mm3 [phone] 11:01am Mean Platelet Volume August 20, 10.9 [...] 11:01am Sodium Level August 20, 137 mmol/L [phone] 11:01am Potassium Level August 20, 4.3 mmol/L [...] Discharge/Departure Atte nding Date Date Provider Departed [facility] September 24, September 24, 2020 Meri bowen [facility] 2020 11:32am 11:54am Kwaku ovider Services Office Visit Departed [facility] September 17, September 17, 2020 Brett hart [facility] 2020 2:47pm 3:46pm Maty her Office Visit Departed [facility] August 27August 27, 2020 Meri bowen [facility] 2019 2:26pm 2:27pm [facility] August 23August 23, 2020 [facility]per [facility]cer [facility] 2019 11:13am 11:14am [facility] Departed [facility] August 20August 20, 2020 [facility] 4:17pm 4:18pm [facility] Departed [facility] June 29June 29, 2020 Meri bowen [facility] 2019 2:41pm 3:05pm Kwaku ovider Services Office Visit Departed [facility] June 18June 18, 2020 [facility] 2019 12:10pm 12:11pm [facility] June 10June 11, 2020 [facility] Department 2019 11:46pm 1:27am [facility] June 04June 04, 2020 [facility] 2019 2:17pm 2:18pm [facility] April 23April 23, 2020 Adi [facility] 2019 8:43am 8:44am [facility] Departed [facility] April 09, 2020 April 09, 2020 9:40 am Adi [facility] 8:23am Kwaku ovider Services Office Visit Departed [facility] Emergency April 08, 2020 April 08, 2020 10:10p m [facility] 9:44pm [facility] April 08, 2020 April 08, 2020 10:07a duy [facility] 10:06am [facility] Departed [facility] April 08, 2020 April 08, 2020 12:39p m [facility] Department 10:03am Departed [facility] April 08, 2020 April [...]
--- OUTSIDE RECORDS SUMMARY | 2022-03-21 09:29 | XMS_ITS | Continuity of Care Document ---
:1975 Author Organization [facility] Address [address] [place] [address] Care Team Providers Name Role Phone Jj Lopez JR Primary Care Physician Jaye Morel Attending Physician Allergies, Adverse Reactions, Alerts Allergen Type Severity Reaction Last Updated Verified Status cephalexin Allergy gi upset February 10, 2021 Y Active Medications Active Medications Medication Dose Units Route Sig Qty Days Start Date St atus Gabapentin 300 MG ORAL THREE TIMES A March Active DAY PRN For Pain Ibuprofen 600 MG ORAL THREE TIMES A April 08, 2020 Active DAY PRN For Pain Metoprolol Tartrate 50 MG ORAL TWICE A DAY 60 February 22, 2021 Active Erythromycin 1 APPLIC LEFT EYE DAILY 3.5 February 22 021 Active Cyclobenzaprine MG August 13, Active 2020 Gabapentin MG August 13, A ctive 2020 Meloxicam MG August 13, Ac tive 2020 Discontinued Medications Medication Dose Units Route Sig Qty Days Start Date Discontin ued Status Date Levofloxacin 500 MG ORAL DAILY 10 19 AugustSeptember 09, Discontinued 2019 Levofloxacin 750 MG ORAL DAILY 10 April 08June 2 0, Discontinued 2019 2019 Amoxicillin 875 MG ORAL TWICE A 14 August 14, Decemb er 12, Discontinued DAY 2020 2020 Problem List Active Problems Medical Problem Onset Date Status Epididymo-orchitis Active Change in bowel function Active Morbid obesity due to excess calories Ac tive Smoker Active Inactive/Resolved Problems Medical Problem Onset Date Status Testicular abscess Inactive Heart palpitations Inactive Palpitations Inactive Conjunctivitis Inactive Otitis media Inactive Vaso-vagal reaction Inactive Left epididymitis Inactive Hypertension Inactive Procedures Procedure Date Status US Thyroid Soft Tissue Neck September 15, [address] Chest w/o Contrast September 08, 2021 [...] r providers can be found at: fda.gov/media /082888/download Fact sheets fo r patients can be found at: .gov/[place] /290952/download Chief Complaint and Reason for Visit Encounter Admit Date Chief Complaint Reason for Visit Departed Clinical September 15, 2021 1:43pm Thyroiditis, unspecifie d Hospital Discharge Instructions No known hospital discharge [...] MG August Amoxicillin 875 MG ORAL TWICE August Discontinu ed A DAY 2020 Encounters Encounter Facility Location Admit/Visit Discharge/Departure Atte nding Date Date Provider Departed [facility] September 15September 15, 2021 Maria Teresa [facility] 2021 1:43pm 1:44pm [facility] Departed [facility] September 08September 08, 2021 [facility] 5:01[facility] 5:02pm [facility] Departed [facility] Emergency August 13August 14, 2021 [facility] Department 2020 11:02pm 1:34am Departed [facility] Emergency February 22, 2021 February 22, 2021 1:38pm [facility] Department 12:47pm Departed [facility] February 10, 2021 February 10, 2021 3:07pm Adi [facility] 2:44pm [facility] Services Office Visit Departed [facility] February 01, 2021 February 01, 2021 3:30pm [facility] January 25, 2021 January 25, 2021 3:09pm Fabiola staton Surgical [facility] Services 12:06pm [facility] Emergency Department Departed [facility] January 19, 2021 January 19, 2021 5:03am Fabiola staton, [facility] [place] 5:02am [facility] December 23December 23, 2020 5:05am [facility] Department 2020 3:24am Departed [facility] Curbside December 07December 07, 2020 7:46am Mika dial [facility] Center 2020 7:45am [facility] 24[facility] 24, 2020 Meri bowen, [facility] 2020 11:32am 11:54am Kwaku arden Services Office Visit Departed [facility] September 17September 17, 2020 Brett hart [facility] 2020 2:47pm 3:46pm Maty her Office Visit Functional Status Query Response Date Recorded Comment Comprehension Ability Understands Concepts February 22, 2021 1:05pm Mood/Behavior Appropriate February 22, 2021 1:05pm Query Response Date Recorded Comment Living Situation With Family August 14, 2021 1:34am Immunizations Immunization Name Date Given Type Covid-19 30mcg/0.3ml Pfizer December 29, 2020 Historical Covid-19 30mcg/0.3ml Pfizer January 19, 2021 Historical Plan of Care No Known Plan of Care Information Social History Query Response Date Recorded Comment Alcohol Use Yes August 13, 2021 11:20pm rare Smoking Status Current every day smoker August 13, 2021 11:20p m Substance Use Treatment No August 13, 2021 11:20pm Substance/Street Drug Use Yes August 13, 2021 11:20 pm occasional alcohol intake frequency holidays/special August 13, 2021 11:20 pm occasions only substance use type marijuana August 13, 2021 11:20pm Query Response Start Date Stop Date Smoking Status Current every day smoker Vital Signs Vital Reading Result Reference Range Collection Date/ Time Height 6 ft 4 in August 13, 2021 11:07pm Weight 196.405 kg August 13, 2021 11:07pm Temperature 98.4 F 97.6 F-99.6 F August 13, 2021 11:07pm Pulse 88 BPM 60-100 August 14, 2021 1:30am Respiration 22 RPM 12-24 August 14, 2021 1:30am Pulse Oximetry 98 % 95-100 August 14, 2021 1:30am Blood Pressure Systolic 160 100-140 August 14, 2021 1:30am Blood Pressure Diastolic 100 50-85 [facility] 2020 1:30am Body Mass Index 56.2 January 13, 2021 8:40 am
--- OUTSIDE RECORDS SUMMARY | 2022-03-21 09:29 | XMS_ITS | Continuity of Care Document ---
:1975 Author Organization [facility] Address [address] [place] [address] Support Name Relationship Address Phone Jj Lopez JR Primary Care Provider Alicia FUENTES [address] [place] [id number] Mackenzie Suarez Attending Provider [facility] ENT [phone] [address] [place] [address] Mackenzie Suarez Referring Provider [facility] [address] [place] [address] Allergies, Adverse Reactions, Alerts Allergen Type Severity Reaction Last Updated Verified Status cephalexin Allergy gi upset November 23, 2021 Y Acti ve Medications Active Medications Medication Dose Units Route Sig Qty Days Start Date St atus Omeprazole 40 MG ORAL TWICE A DAY 60 November 23, 2021 Active Ibuprofen 600 MG ORAL THREE TIMES A April 08, 2020 Active DAY PRN For Pain Metoprolol Tartrate 50 MG ORAL TWICE A DAY 60 February 22, 2021 Active Cyclobenzaprine MG August 13, 2021 Active Gabapentin MG August 13 Active Meloxicam MG August 13 Active Amoxicillin-Pot 1 TAB ORAL TWICE A DAY 2021 Active Clavulanate [Augmentin] Discontinued Medications Medication Dose Units Route Sig Qty Days Start Date Discontin ued Status Date Levofloxacin 500 MG ORAL DAILY 10 19 AugustSeptember 09, Discontinued 2019 Gabapentin 300 MG ORAL THREE April 08November 23, 022 Discontinued TIMES A 2019 DAY PRN For Pain Levofloxacin 750 MG ORAL DAILY 10 April 08June 2 0, Discontinued 2019 2019 Erythromycin 1 APPLIC LEFT DAILY 3.5 February 22November 23, 2021 Discontinued EYE 2020 Amoxicillin 875 MG ORAL TWICE A 14 16 AugustAugust 21, Discontinued DAY 5, 2021 2021 Problem List Active Problems Medical Problem Onset Date Status Multinodular goiter (nontoxic) Active Multinodular goiter (nontoxic) Active Hoarseness of voice Active Epididymo-orchitis Active Change in bowel function [...] Hypertension Inactive Procedures Procedure Date Status US Gd FNA Breast/Node/Thyroid November 11, 2021 completed US Thyroid Soft Tissue Neck September 15, [...] fo r providers can be found at: fda.gov/[employer] /959307/download Fact sheets fo r patients can be found at: [employer]ra[employer].gov/[employer] /778678/download Chief Complaint and Reason for Visit Encounter Admit Date Chief Complaint Reason for Visit Departed November 23, 2021 Follow Up Hoarseness of vo ice Physician/Provider 8:02am Morbid obesit y due to excess calories Office Visit Multinodular goi ter (nontoxic) Smoker Hospital Discharge Instructions No known hospital discharge instructions. Hospital Discharge Medications Medication Dose Units Route Sig Qty Days Order Status Instru ctions Date Levofloxacin 500 MG ORAL DAILY August Discontin ued 2019 Omeprazole 40 MG ORAL TWICE 60 November 23, Active A DAY 2021 Gabapentin 300 MG ORAL THREE April 08, Discontinue d TIMES 2020 A DAY PRN For Pain Ibuprofen 600 MG ORAL THREE April 08, Active TIMES 2020 A DAY PRN For Pain Levofloxacin 750 MG ORAL DAILY 10 April 08, Discontin ued 2019 Metoprolol 50 MG ORAL TWICE 60 February 22, Active Tartrate A DAY 2020 Erythromycin 1 APPLIC LEFT DAILY 3.5 February 22, Discontin ued EYE 2020 Cyclobenzaprine MG August Gabapentin MG August Meloxicam MG August Amoxicillin 875 MG ORAL TWICE 14 16 August Discontinu ed A DAY 2020 Amoxicillin-Pot 1 TAB ORAL TWICE 29 September Active Clavulanate A DAY 2021 Encounters Encounter Facility Location Admit/Visit Discharge/Departure Atte nding Date Date Provider Departed [facility] November 23November 23, 2021 8:47am Erick, [facility] 2021 8:02am Mackenzie her Office Visit Departed [facility] November 11, 2021 November 11, 2021 10:49a [facility] Departed [facility] October 11October 11, 2021 Darrick concepcion, [facility] 2021 11:31am 12:03pm [facility] Office Visit Departed [facility] Emergency September 29, September 29, 2021 [facility] Department 2021 6:31pm 9:12[facility] 15September 15, 2021 Maria Teresa [facility] 2021 1:43pm 1:44pm [facility] Departed [facility] September 08September 08, 2021 Casper [facility]cer [facility] 2020 5:01pm 5:02pm [facility] August 13August 14, 2021 [facility] Department 2020 11:02pm 1:34am Departed [facility] Emergency February 22, 2021 February 22, 2021 1:38pm [facility] Department 12:47pm Departed [facility] February 10, 2021 February 10, 2021 3:07pm Adi [facility] 2:44pm [facility] Services Office Visit Departed [facility] February 01, 2021 February 01, 2021 3:30pm [facility] 3:29pm [facility] Surgical January 25, 2021 January 25, 2021 3:09pm [facility] 12:[facility] January 19, 2021 January 19, 2021 5:03am [facility] 5:[facility] Renzo [facility] December 23December 23, 2020 5:05am [facility] Department 2020 3:24am Departed [facility] December 07December 07, 2020 7:46am [facility] 2020 7:45am Melody Encounter Diagnosis Onset Date Hoarseness of voice Morbid obesity due to excess calories Multinodular goiter (nontoxic) Smoker Functional Status Query Response Date Recorded Comment [...] 19, 2021 Historical Plan of Care Instructions Thyroidectomy Social History Query Response Date Recorded Comment Alcohol Use Yes September 29, 2021 9:03pm rare Smoking Status Current every day smoker November 17, 2021 8:01am Substance Use Treatment No September 29, 2021 [...] Date/ Time Height 6 ft 4 in November 23, 2021 8 :06am Weight 190.7 kg November 23, 2021 8 :06am Temperature 98.2 F 97.6 F-99.6 F September 29, 2021 8:52pm Pulse 86 BPM 60-100 November 23, 2021 8 :06am Respiration 18 RPM 12-24 September 29, 2021 8:52pm Pulse Oximetry 99 % 95-100 November 23, 2021 8 :06am Blood Pressure Systolic 142 100-140 November 8:06am Blood Pressure Diastolic 90 50-85 November 082021 8:06am Body Mass Index 51.1 November 23, 2021 8 :06am
--- OUTSIDE RECORDS SUMMARY | 2022-03-21 09:29 | XMS_ITS | Continuity of Care Document ---
:1975 Author Organization [facility] Address [address] [place] [address] Care Team Providers Name Role Phone Carolina Aguirre Primary Care Physician Jj Lopez JR Attending Physician Unavailable Allergies, Adverse Reactions, Alerts Allergen Type Severity [...] Left epididymitis Inactive Procedures Procedure Date Status CTA Angio Chest w/wo Contrast August 23, [...] April 09, 2020 Negative 8:35am Urine Specific [place] April 09, 2020 1.025 (Manual) 8:35am POC [...] 11:01am Platelet Count August 20, 328 1000/mm3 [phone] 11:01am Mean Platelet Volume August 20, 10.9 [...] # (Auto) August 20, 0.07 1000/mm3 0.0-0.1 2020 07: Absolute Immature August 20, 0.1 0-1 Granulocyte (auto 2020 07: Differential Method August 20, Automated 2020 07: Sodium Level August 20, 137 mmol/L [phone] 11:01am Potassium Level August 20, 4.3 mmol/L 3.6-5.0 2019 Chloride Level August 20, 105 mmol/L 98-107 2019 Carbon Dioxide Level August 20, 26 mmol/L 22-30 2019 Anion Gap August 20, 6 Low 7-16 2019 Blood Urea Nitrogen August 20, 12 mg/dL 8-2019: Creatinine August 20, 0.95 mg/dL 0.66-1.25 2020 07: Glomerular Filtration August 20, > 60 mL/min 60.0- Rate Calc 2020 07: Glucose Level August 20, 101 mg/dL High 70-100 2020 07: Calcium Level August 20, 9.4 mg/dL 8.4-10.2 2019 Calcium Adjusted for August 20, 9.6 mg/dL 8.4-10.2 Albumin 2019 Total Bilirubin August 20, 0.5 mg/dL 0.2-1.3 2020 07: Aspartate Amino Transf August 20, 34 U/L 17-59 (AST/SGOT) 2020 07: Alanine August 20, 50 U/L As of 01/09/20 , the Reference Range for ALT/SGPT for adult patients has been updated. Aminotransferase 2020 07: The Re ference Range for ALT/SGPT has [...] Albumin August 20, 4.0 g/dL 3.5-5.0 2019 11:01 Cholesterol Level August 20, 229 mg/dL High [...] Ratio August 20, 6.93 High 0-3.9 2019 11:01 Triglycerides Level August 20, 255 mg/dL High 0-149 2019 11: Alkaline Phosphatase August 20, 103 U/L 38-126 2019 11:01 Thyroid Stimulating August 20, 1.89 mlU/L 0.47-4.68 The results of Hormone (TSH) 2020 07:01am this assa y can be falsely decreased in patients who consume Biotin . Hospital Discharge Instructions No known hospital discharge instructions. Hospital Discharge Medications Medication Dose Units Route Sig Qty Days Order Date Status In structions Gabapentin 300 MG ORAL April 08, Active TIMES A 2019 DAY PRN For Pain Ibuprofen 600 MG ORAL April 08, Active TIMES A 2019 DAY PRN For Pain Levofloxacin 750 MG ORAL DAILY April 08, Discontin ued 2019 Encounters Encounter Facility Location Admit/Visit Discharge/Departure Atte nding Date Date Provider Departed [facility] August 23August 23, 2020 Casper mercer JR, [facility] 2019 11:13am 11:14am [facility] Departed [facility] August 20August 20, 2020 Jessica FOX [facility] 2019 4:17pm 4:18pm [facility] June 29June 29, 2020 Meri bowen, [facility] 2019 2:41pm 3:05pm Kwaku ovider Services Office Visit Departed [facility] June 18, June 18, 2020 Mutjyotsnakr kellie [facility] 2019 12:10pm 12:11pm [facility] June 10June 11, 2020 [facility] Department 2019 11:46pm [facility]June 04, 2020 [facility] 2019 2:17pm 2:18pm [facility] April 23April 23, 2020 Adi [facility] 2019 8:43am 8:44am [facility] April 09, 2020 April 09, 2020 9:40 am Adi [facility] 8:23am [facility] ovider Services [facility] April 08, 2020 April 08, 2020 10:10p m [facility] Department 9:44pm [facility] April 08, 2020 April 08, 2020 10:07a [facility] 10:06am [facility] April 08, 2020 April 08, 2020 12:39p m [facility] Department 10:03am [facility] Emergency April 08, 2020 April 08, [...]
--- OUTSIDE RECORDS SUMMARY | 2022-03-21 09:29 | XMS_ITS | Continuity of Care Document ---
:1975 Author Organization [facility] Address [address] [place] [address] Support Name Relationship Address Phone Kwaku Joshi Attending Provider [facility] [address] [place] [address] Kwaku Joshi Referring Provider [facility] [address] [facility], [place] [address] Jj Lopez JR Primary Care Provider Alicia FUENTES [facility] [address] [place] [address] Allergies, Adverse Reactions, Alerts Allergen Type Severity [...] April 09, 2020 Negative 8:35am Urine Specific [place] April 09, 2020 1.025 (Manual) 8:35am POC [...] 11:01am Platelet Count August 20, 328 1000/mm3 [phone] 11:01am Mean Platelet Volume August 20, 10.9 [...] 11:01am Sodium Level August 20, 137 mmol/L [phone] 11:01am Potassium Level August 20, 4.3 mmol/L [...] Discharge/Departure Atte nding Date Date Provider Departed [facility] September 24, September 24, 2020 Meri bowen [facility] 2020 11:32am 11:54am Kwaku ovider Services Office Visit Departed [facility] September 17, September 17, 2020 Brett hart [facility] 2020 2:47pm 3:46pm Maty her Office Visit Departed [facility] August 27August 27, 2020 Meri bowen [facility] 2019 2:26pm 2:27pm [facility] 23August 23, 2020 [facility] 2019 11:13am 11:14am [facility] Departed [facility] August 20August 20, 2020 [facility] 4:17pm 4:18pm [facility] Departed [facility] June 29June 29, 2020 Meri bowen [facility] 2019 2:41pm 3:05pm Kwaku ovider Services Office Visit Departed [facility] June 18June 18, 2020 [facility] 2019 12:10pm 12:11pm [facility] June 10June 11, 2020 [facility] Department 2019 11:46pm 1:27am [facility] June 04June 04, 2020 [facility] 2019 2:17pm 2:18pm [facility] April 23April 23, 2020 Adi [facility] 2019 8:43am 8:44am [facility] Departed [facility] April 09, 2020 April 09, 2020 9:40 am Adi [facility] 8:23am Kwauk ovider Services Office Visit Departed [facility] Emergency April 08, 2020 April 08, 2020 10:10p m [facility] 9:44pm [facility] April 08, 2020 April 08, 2020 10:07a [facility] 10:06am [facility] Departed [facility] April 08, 2020 April 08, 2020 12:39p m [facility] Department 10:03am Departed [facility] Emergency April 08, 2020 April 08, [...]
--- OUTSIDE RECORDS SUMMARY | 2022-03-21 09:29 | XMS_ITS | Continuity of Care Document ---
:1975 Author Organization [facility] Address [address] [place] [address] Care Team Providers Name Role Phone Jj [...] r providers can be found at: fda.gov/media /165863/download Fact sheets fo r patients can be found at: fda.gov/media /502720/download Chief Complaint and Reason for Visit Encounter [...] Discharge/Departure Atte nding Date Date Provider Departed [facility] Emergency September 29September 29, 2021 [facility] Department 2021 6:31pm 9:12pm Departed [facility] September 15September 15, 2021 Maria Teresa [facility] 2021 1:43pm 1:44pm [facility] Departed [facility] September 08September 08, 2021 [facility]per [facility] 2020 5:01pm 5:02pm [facility] Departed [facility] Emergency August 13August 14, 2021 [facility] Department 2020 11:02pm 1:34am Departed [facility] February 22, 2021 February 22, 2021 1:38pm [facility] Department 12:47pm Departed [facility] February 10, 2021 February 10, 2021 3:07pm Adi [facility] 2:44pm Kwaku her Services Office Visit Departed [facility] February 01, 2021 February 01, 2021 3:30pm [facility] 3:29pm [facility] Departed [facility] Surgical January 25, 2021 January 25, 2021 3:09pm [facility] 12:06pm [facility] Departed [facility] January 19, 2021 January 19, 2021 5:03am [facility] 5:[facility] December 23December 23, 2020 5:05am [facility] Department 2020 3:24am Departed [facility] December 07December 07, 2020 7:46am [facility] 2020 7:45am Melody Functional Status Query Response [...]
--- OUTSIDE RECORDS SUMMARY | 2022-03-21 09:29 | XMS_ITS | Continuity of Care Document ---
:1975 Author Organization [facility] Address [address] [place] [address] Care Team Providers Name Role Phone Jj [...] EYE DAILY 3.5 February 22 021 Active Discontinued Medications Medication Dose Units Route Sig Qty Days Start Date Discontin ued Status Date Levofloxacin 500 MG ORAL DAILY 10 August 30, Decem kenzie 31, Discontinued 2019 2019 Levofloxacin 750 MG ORAL DAILY 10 April 08June 2 0, Discontinued 2019 2019 Problem List Active Problems Medical Problem Onset Date Status Epididymo-orchitis Active Conjunctivitis Active Change in bowel function Active Morbid obesity due to excess calories Ac tive Hypertension Active Smoker Active Inactive/Resolved Problems Medical Problem Onset Date Status Testicular abscess Inactive Heart palpitations Inactive Palpitations Inactive Vaso-vagal reaction Inactive Left epididymitis Inactive Procedures Procedure Date Status US Testicles (Scrotal) February 01, 2021 completed DIAGNOSTIC COLONOSCOPY January 25, 2021 active INTERFACE ELECTROCARDIOGRAM December 23, 2020 completed US Testicles (Scrotal) August 27, 2020 completed [...] 8:35am Urine Specific April 09, 2020 1.025 [place] (Manual) 8:35am POC Urine RBC April 09, 2020 Trace Intact 8:35am Urine pH (Manual) April 09, 2020 5.5 8:35am POC Urine Protein April 09, 2020 Negative Confirmation 8:35am Urine Urobilinogen April 09, 2020 0.2 (Manual) 8:35am Urine Nitrite April 09, 2020 Negative (Manual) 8:35am Urine Leukocyte April 09, 2020 Negative Esterase (Manual) 8:35am White Blood Count December 23, 2020 8.70 [...] g/dL 33-37 Hemoglobin Concent 3:40am Red Cell Distribution December 23, 2020 13.9 % 11.5-14.5 Width 3:40am Platelet Count December 23, 2020 258 1000/mm3 140-440 3:40am Mean Platelet Volume December 23, 2020 10.1 fL 7.4-10.4 3:40am Neutrophils (%) December 23, 2020 57.1 % 40.0-72.0 (Auto) 3:40am Lymphocytes (%) December 23, 2020 33.7 % 17-45 (Auto) 3:40am Monocytes (%) (Auto) December 23, 2020 6.0 % 3-11 3:40am Eosinophils (%) December 23, 2020 2.2 % 0-3 (Auto) 3:40am Basophils (%) (Auto) December 23, 2020 0.7 % 0-1 3:40am Immature Granulocyte December 23, 2020 0.3 % 0-1 % (Auto) 3:40am Neutrophils # (Auto) December 23, 2020 4.97 1000/mm3 1.4-6.5 3:40am Lymphocytes # (Auto) December 23, 2020 2.93 1000/mm3 1.2-3.4 3:40am Monocytes # (Auto) December 23, 2020 0.52 1000/mm3 0.0-0.8 3:40am Eosinophils # (Auto) December 23, 2020 0.19 1000/mm3 0.0-0.7 3:40am Basophils # (Auto) December 23, 2020 0.06 1000/mm3 0.0-0.1 3:40am Absolute Immature December 23, 2020 0.0 0-1 Granulocyte (auto 3:40am Differential Method December 23, 2020 Automated 3:40am Sodium Level December 23, 2020 140 mmol/L 137-145 3:40am Potassium Level December 23, 2020 3.5 mmol/L Low 3.6-5.0 3:40am Chloride Level December 23, 2020 105 mmol/L 98-107 3:40am Carbon Dioxide Level December 23, 2020 29 mmol/L 22-30 3:40am Anion Gap December 23, 2020 6 Low 7-16 3:40am Blood Urea Nitrogen December 23, 2020 11 mg/dL 8-26 3:40am Creatinine December 23, 2020 0.85 mg/dL 0.66-1.25 3:40am Glomerular Filtration December 23, 2020 > 60 mL/min 60.0- Rate Calc 3:40am Glucose Level December 23, 2020 121 mg/dL High 70-100 3:40am Calcium Level December 23, 2020 8.5 mg/dL 8.4-10.2 3:40am Calcium Adjusted for August 20, 9.6 mg/dL 8.4-10.2 Albumin 2019 11:01am Magnesium Level December 23, 2020 2.0 mg/dL 1.6-2.3 3:40am Total Bilirubin August 20, 0.5 mg/dL 0.2-1.3 2019 11:01am Aspartate Amino August 20, 34 U/L 17-59 Transf (AST/SGOT) 2019 11:01 Alanine August 20, 50 U/L As of 01/09/20 , the Reference Range for ALT/SGPT for adult patients has been updated. Aminotransferase 2019 11:01 The Re ference Range for ALT/SGPT has not been established for patients <18 years of age. (ALT/SGPT) Troponin I December 23, 2020 < 0.012 ng/mL 0-0.034 Referen ce Range: <0.034 ng/mL 3:40am AMI Cut-off 0 .120 ng/mL The result s of this assay can be falsely decreased in patients who consume Biotin. Total Protein August 20, 7.3 g/dL 6.3-8.2 2019 11:01am Albumin August 20, 4.0 g/dL 3.5-5.0 2019 11:01am Cholesterol Level August 20, 229 mg/dL High 59-199 2019 11:01am HDL Cholesterol August 20, 33 mg/dL Low 40-60 The [place] ional Cholesterol Education Program (NCEP) has set the following guidelines (reference values) for cholesterol, HDL: 2020 07:01am Low HDL: <40 mg/dL Normal: 40-60 mg/dL [...] 0.47-4.68 The results of this Hormone (TSH) 2020 07:01 assay can be falsely decrea sed in patients wh o consume Biotin . SARS-CoV-2 RNA January 19, 2021 Negative This [...] fo r providers can be found at: [employer].gov/Neventum /801520/download Fact sheets fo r patients can be found at: [employer].gov/Neventum /221993/download Chief Complaint and Reason for Visit Encounter Admit Date Chief Complaint Reason for Visit Departed Emergency February 22, 2021 12:47pm EYE COMPLAINT/SOB Hospital Discharge Instructions No known hospital discharge [...] ued 2019 Metoprolol 50 MG ORAL TWICE A 60 February 22, Active Tartrate DAY 2020 Erythromycin 1 APPLIC LEFT DAILY 3.5 February 22, Active EYE 2020 Encounters Encounter Facility Location Admit/Visit Discharge/Departure Atte nding Date Date Provider Departed [facility] Emergency February 22, 2021 February 22, 2021 1:38pm [facility] Department 12:47pm Departed [facility] February 10, 2021 February 10, 2021 3:07pm [facility] 2:44pm [facility] Services Office Visit Departed [facility] DI February 01, 2021 February 01, 2021 3:30pm [facility] January 25, 2021 January 25, 2021 3:09pm Fabiola staton Surgical [facility] Services 12:06pm [facility] Departed [facility] January 19, 2021 January 19, 2021 [facility] Renzo Dep[facility]ed [facility] Emergency December 23, December 23, 2020 5:05am [facility] Department 2020 3:24am Departed [facility] Curbside December 07, December 07, 2020 7:46am [facility] 2020 7:45am Melody Departed [facility] September 24, September 24, 2020 Meri bowen, [facility] 2020 11:32am 11:54am Kwaku ovider Services Office Visit Departed [facility] September 17, September 17, 2020 Brett hart [facility] 2020 2:47pm 3:46pm Maty ovider Office Visit Departed [facility] August 27August 27, 2020 Meri bowen [facility] 2019 2:26pm 2:27pm [facility] 23August 23, 2020 [facility]per [facility] 2019 11:13am 11:14am [facility] Dep[facility]ed [facility] August 20August 20, 2020 [facility] 4:17pm 4:18[facility] 2020 Meri bowen, [facility] 2019 2:41pm 3:05pm Kwaku ovider Services Office Visit Departed [facility] June 18June 18, 2020 Arianne hopkins [facility] 2019 12:10pm 12:11pm [facility] June 10June 11, 2020 [facility] Department 2019 11:46pm 1:27[facility] June 04June 04, 2020 [facility] 2019 2:17pm 2:18pm [facility] April 23April 23, 2020 Adi [facility] 2019 8:43am 8:44am [facility] Departed [facility] April 09, 2020 April 09, 2020 9:40 am [facility] 8:23am Kwaku ovider Services Office Visit Departed [facility] Emergency April 08, 2020 April 08, 2020 10:10p m [facility] Department 9:44pm Departed [facility] April 08, 2020 April 08, 2020 10:07a [facility] 10:06am [facility] Departed [facility] Emergency April 08, 2020 April 08, 2020 12:39p m [facility] Department 10:03am Departed [facility] Emergency April 08, 2020 April 08, 2020 1:22am [facility] Department 12:35am Functional Status Query Response Date Recorded Comment Comprehension Ability Understands Concepts February 22, 2021 1:05pm Mood/Behavior Appropriate February 22, 2021 1:05pm Query Response Date Recorded Comment Living Situation Home February 22, 2021 1:38pm With Family Immunizations Immunization Name Date Given Type Covid-19 30mcg/0.3ml Pfizer December 29, 2020 Historical Covid-19 30mcg/0.3ml Pfizer January 19, 2021 Historical Plan of Care Instructions High Blood Pressure (DC) Conjunctivitis ([facility]) ED COVID 19 General Instructions- decrease the spread of coronavirus ([facility]) Social History Query Response Date Recorded Comment Alcohol Use Yes February 22, 2021 1:25pm rare Smoking Status Current every day smoker February 22, 2021 1:25pm Substance Use Treatment No February 22, 2021 1:25pm Substance/Street Drug Use Yes February 22, 2021 1:25pm o ccasional alcohol intake frequency holidays/special occasions February 22 1:25pm only substance use type marijuana February 22, 2021 1:25pm Query Response Start Date Stop Date Smoking Status Current every day smoker Vital Signs Vital Reading Result Reference Range Collection Date/ Time Height 6 ft 3 in January 13, 2021 8:40 am Weight 198.673 kg February 22, 2021 12 :55pm Temperature 97.4 F 97.6 F-99.6 F February 22, 2021 12 :55pm Pulse 108 BPM 60-100 February 22, 2021 12 :55pm Respiration 22 RPM 12-24 February 22, 2021 12 :55pm Pulse Oximetry 97 % 95-100 February 22, 2021 12 :55pm Blood Pressure Systolic 144 100-140 February 22, 2021 12:55pm Blood Pressure Diastolic 101 50-85 February 12:55pm Body Mass Index 56.2 January 13, 2021 8:40 am
--- OUTSIDE RECORDS SUMMARY | 2022-03-21 09:29 | XMS_ITS | Continuity of Care Document ---
:1975 Author Organization [facility] Address [address] [place] [address] Care Team Providers Name Role Phone Jj [...] Heart palpitations Inactive Palpitations Inactive Conjunctivitis Inactive Vaso-vagal reaction Inactive Left epididymitis Inactive Hypertension Inactive Procedures Procedure Date Status US Testicles [...] 8:35am Urine Specific April 09, 2020 1.025 [place] (Manual) 8:35am POC Urine RBC April 09, [...] fo r providers can be found at: [employer].gov/Socialinus /954176/download Fact sheets fo r patients can be found at: [employer]gov/Socialinus /510034/download Chief Complaint and Reason for Visit Encounter [...] Discharge/Departure Atte nding Date Date Provider Departed [facility] Emergency February 22, 2021 February 22, 2021 1:38pm [facility] Department 12:47pm Departed [facility] February 10, 2021 February 10, 2021 3:07pm Adi [facility] 2:44pm [facility] Services Office Visit Departed [facility] DI February 01, 2021 February 01, 2021 3:30[facility] January 25, 2021 January 25, 2021 3:09pm Fabiola staton Surgical [facility] 12:06pm [facility] Departed [facility] January 19, 2021 January 19, 2021 5:03am [facility] 5:02am Renzo Departed [facility] Emergency December 23, December 23, 2020 5:05am [facility] Department 2020 3:24am Departed [facility] Curbside December 07, December 07, 2020 7:46am [facility] 2020 7:45am Melody Departed [facility] September 24, September 24, 2020 Meri bowen, [facility] 2020 11:32am 11:54am Kwaku ovider Services Office Visit Departed [facility] September 17, September 17, 2020 Brett hart [facility] 2020 2:47pm 3:46pm Maty ovider Office Visit Departed [facility] August 27August 27, 2020 Meri bowen [facility] 2019 2:26pm 2:27pm [facility] August 23August 23, 2020 [facility]per [facility] 2019 11:13am 11:14am [facility] Departed [facility] August 20August 20, 2020 [facility] 4:17pm 4:18pm [facility] June 29June 29, 2020 Meri bowen, [facility] 2019 2:41pm 3:05pm Kwaku ovider Services Office Visit Departed [facility] June 18June 18, 2020 Arianne hopkins [facility] 2019 12:10pm 12:11pm [facility] June 10June 11, 2020 [facility] Department 2019 11:46pm 1:27[facility] June 04June 04, 2020 [facility] 2019 2:17pm 2:18pm [facility] April 23April 23, 2020 Adi [facility] 2019 8:43am 8:44am [facility] Departed [facility] April 09, 2020 April 09, 2020 9:40 am Ad[facility] 8:23am Kwaku ovider [facility] Office Visit Departed [facility] April 08, 2020 April 08, 2020 10:10p m [facility] Department 9:44pm Departed [facility] April 08, 2020 April 08, 2020 10:07a [facility] 10:06am [facility] Departed [facility] April 08, 2020 April 08, 2020 12:39p m [facility] Department 10:03am Departed [facility] April 08, 2020 April 08, [...] Care Instructions High Blood Pressure (DC) Conjunctivitis ([facility]) ED COVID 19 General Instructions- decrease [...]
--- OUTSIDE RECORDS SUMMARY | 2022-03-21 09:29 | XMS_ITS | Continuity of Care Document ---
:1975 Author Organization [facility] Address [address] [place] [address] Care Team Providers Name Role Phone Carolina Aguirre Primary Care Physician Carmen Bañuelos Attending Physician Allergies, Adverse Reactions, Alerts Allergen Type Severity Reaction Last Updated Verified Status cephalexin Allergy unknown April 09, 2020 Y Activ e Medications Active Medications Medication Dose Units Route Sig Qty Start Date Status Oxycodone 5 MG ORAL TWICE A DAY PRN April 09, 2020 Active Gabapentin 300 MG ORAL THREE TIMES A DAY PRN For Pain April 08, 2020 Active Ibuprofen 600 MG ORAL THREE TIMES A DAY PRN For Pain April 08, 2020 Active Levofloxacin 750 MG ORAL DAILY 10 April 08, 2020 Activ e Problem List Active Problems Medical Problem Onset [...] US Testicles (Scrotal) April 08, 2020 completed Chest 2 vw June 25, 2019 completed INTERFACE ELECTROCARDIOGRAM June 25, 2019 completed Relevant Diagnostic Tests and/or Laboratory Data [...] April 09, 2020 Negative 8:35am Urine Specific [place] April 09, 2020 1.025 (Manual) 8:35am POC [...] June 11, 2020 92 U/L 38-126 12:25am Advance Directives Advance Directive Response Recorded Date/Time Do we have a copy on file here at [facility]? No O ct2018 1:44pm Does patient have an Advanced Directive? No June 25, 2019 1:44pm Pt has a Living Will? No June 25, 2019 1 :44pm Pt has a Power of Audio Visual Equipment Rental Clerk? No June 25, 2019 1:44pm Chief Complaint and Reason for Visit Encounter Admit Date Chief Complaint Reason for Visit Departed Clinical June 18, 2020 12:10pm Other forms of dyspnea Hospital Discharge Instructions No known hospital discharge instructions. Hospital Discharge Medications Medication Dose Units Route Sig Qty Days Order Date Status In structions Oxycodone 5 MG ORAL TWICE A DAY April 09, 2020 Ac tive PRN Gabapentin 300 MG ORAL THREE TIMES A April 08, 2020 Active DAY PRN For Pain Ibuprofen 600 MG ORAL THREE TIMES A April 08, 2020 Active DAY PRN For Pain Levofloxacin 750 MG ORAL DAILY 10 April 08, 2020 Acti ve Encounters Encounter Facility Location Admit/Visit Discharge/Departure Atte nding Date Date Provider Departed [facility] June 18June 18, 2020 Arianne hopkins [facility] 2019 12:10pm 12:11pm [facility] June 10June 11, 2020 [facility] Department 2019 11:46pm 1:27am Departed [facility] June 04June 04, 2020 [facility] 2:17pm 2:18pm [facility] 23April 23, 2020 Adi [facility] 2019 8:43am 8:44am [facility] April 09, 2020 April 09, 2020 9:40 am Adi [facility] 8:23am [facility] April 08, 2020 April 08, 2020 10:10p m [facility] Department 9:44pm Departed [facility] DI April 08, 2020 April 08, 2020 10:07a [facility] 10:06[facility] Dep[facility]ed [facility] April 08, 2020 April 08, 2020 12:39p m [facility] Department 10:03am Departed [facility] April 08, 2020 April 08, 2020 1:22am [facility] Department 12:35am Departed [facility] June 25June 25, 2019 [facility] Department 2018 1:09pm 3:45pm Functional Status Query Response Date Recorded Comment Comprehension Ability Understands Concepts April 08, 2020 12:50am Query Response Date Recorded Comment Living Situation Home June 11, 2020 1:27am Immunizations No known immunizations. Payers Payer Name Policy Type Covered Covered Relationship Subscriber Sub scriber Id Republican Republican Id MEDICAID OF Medicaid YOLANDA FANG [id number] Self/Same as YOLANDA FANG [id number] [place] Patient SELF PAY Personal Plan of Care No Known Plan of Care Information Social History Query Response Date Recorded Comment Alcohol Use No June 11, 2020 1:19am Smoking Status Current every day smoker June 11, 2020 1:19am Substance Use Treatment No June 11, 2020 1:19am Substance/Street Drug Use No June 11, 2020 1:19am alcohol intake frequency holidays/special occasions June 11 020 1:19am only Query Response Start Date Stop Date Smoking Status Current every day smoker Vital Signs Vital Reading Result Reference Range Collection Date/ Time Height 6 ft 4 in April 09, 2020 8: 30am Weight 203.2 kg June 10, 2020 11:49pm Temperature 98.1 F 97.6 F-99.6 F June 10, 2020 11:49pm Pulse 94 BPM 60-100 June 11, 2020 1:27am Respiration 16 RPM 12-24 June 11, 2020 1:27am Pulse Oximetry 99 % 95-100 June 11, 2020 1:27am Blood Pressure Systolic 124 100-140 June 11, 2020 1:27am Blood Pressure Diastolic 75 50-85 June 11, 2020 1:27am Body Mass Index 53.5 April 09, 2020 8: 30am
--- OUTSIDE RECORDS SUMMARY | 2022-03-21 09:29 | XMS_ITS | Continuity of Care Document ---
:1975 Author Organization [facility] Address [address] [place] [address] Care Team Providers Name Role Phone Out of Town, Provider Primary Care Physician Unavailable Carolina Aguirre Attending Physician Allergies, Adverse Reactions, Alerts Allergen Type Severity Reaction Last Updated Verified Status cephalexin Allergy June 25, 2019 Y Ac tive Medications Active Medications Medication Dose Units Route Sig Qty Start Date Status Gabapentin 300 MG ORAL THREE TIMES A DAY PRN For Pain April 08, 2020 Active Ibuprofen 600 MG ORAL THREE TIMES A DAY PRN For Pain April 08, 2020 Active Levofloxacin 750 MG ORAL DAILY 10 April 08, 2020 Activ e Problem List Inactive/Resolved Problems Medical Problem Onset Date Status Testicular abscess Inactive Vaso-vagal reaction Inactive Left epididymitis Inactive Procedures Procedure Date Status Hip 2 vw Min RT April 08, 2020 completed Lumbar Spine 2-3 vw April 08, 2020 completed US Testicles (Scrotal) April 08, 2020 completed Chest 2 vw June 25, 2019 completed INTERFACE ELECTROCARDIOGRAM June 25, 2019 completed Relevant Diagnostic Tests and/or Laboratory Data Laboratory Results Test Date/Time Result Interp. Ref. Range Result Comment White Blood Count April 08, 2020 9.22 1000/mm3 4.8-10.8 12:03pm Red Blood Count April 08, 2020 5.22 M/mm3 4.70-6.00 12:03pm Hemoglobin April 08, 2020 14.7 g/dL 14.0-18.0 12:03pm Hematocrit April 08, 2020 45.9 % 42-52 12:03pm Mean Corpuscular April 08, 2020 87.9 fL 80.0-94.0 Volume 12:03pm Mean Corpuscular April 08, 2020 28.2 pg 27-31 Hemoglobin 12:03pm Mean Corpuscular April 08, 2020 32.0 g/dL Low 33-37 Hemoglobin Concent 12:03pm Red Cell April 08, 2020 14.0 % 11.5-14.5 Distribution Width 12:03pm Platelet Count April 08, 2020 284 1000/mm3 140-440 12:03pm Mean Platelet Volume April 08, 2020 10.4 fL 7.4-10.4 12:03pm Neutrophils (%) April 08, 2020 60.7 % 40.0-72.0 (Auto) 12:03pm Lymphocytes (%) April 08, 2020 28.7 % 17-45 (Auto) 12:03pm Monocytes (%) (Auto) April 08, 2020 6.4 % 3-11 12:03pm Eosinophils (%) April 08, 2020 2.7 % 0-3 (Auto) 12:03pm Basophils (%) (Auto) April 08, 2020 0.7 % 0-1 12:03pm Immature Granulocyte April 08, 2020 0.8 % 0-1 % (Auto) 12:03pm Neutrophils # (Auto) April 08, 2020 5.60 1000/mm3 1.4-6.5 12:03pm Lymphocytes # (Auto) April 08, 2020 2.65 1000/mm3 1.2-3.4 12:03pm Monocytes # (Auto) April 08, 2020 0.59 1000/mm3 0.0-0.8 12:03pm Eosinophils # (Auto) April 08, 2020 0.25 1000/mm3 0.0-0.7 12:03pm Basophils # (Auto) April 08, 2020 0.06 1000/mm3 0.0-0.1 12:03pm Absolute Immature April 08, 2020 0.1 0-1 Granulocyte (auto 12:03pm Differential Method April 08, 2020 Automated 12:03pm Sodium Level June 25, 2019 137 mmol/L 137-145 1:32pm Potassium Level June 25, 2019 3.8 mmol/L 3.6-5.0 1:32pm Chloride Level June 25, 2019 104 mmol/L 98-107 1:32pm Carbon Dioxide Level June 25, 2019 23 mmol/L -30 1:32pm Anion Gap June 25, 2019 10 7-16 1:32pm Blood Urea Nitrogen June 25, 2019 12 mg/dL 8-26 1:32pm Creatinine June 25, 2019 0.82 mg/dL 0.66-1.25 1:32pm Glomerular June 25, 2019 > 60 mL/min 60.0- Filtration Rate Calc 1:32pm Glucose Level June 25, 2019 99 mg/dL 70-100 1:32pm Calcium Level June 25, 2019 8.5 mg/dL 8.4-10.2 1:32pm Troponin I June 25, 2019 < 0.012 ng/mL 0-0.034 Refer ence Range: <0.034 ng/mL 1:32pm AMI Cut-off 0 .120 ng/mL The result s of this assay can be falsely decreased in patients who consume Biotin. Advance Directives Advance Directive Response Recorded Date/Time Do we have a copy on file here at [facility]? No O ct2018 1:44pm Does patient have an Advanced Directive? No June 25, 2019 1:44pm Pt has a Living Will? No June 25, 2019 1 :44pm Pt has a Power of Counter Roller? No June 25, 2019 1:44pm Chief Complaint and Reason for Visit Encounter Admit Date Chief Complaint Reason for Visit Departed Clinical April 08, 2020 10:06am RT HIP PAIN; LBP Hospital Discharge Instructions No known hospital discharge instructions. Hospital Discharge Medications Medication Dose Units Route Sig Qty Days Order Date Status In structions Gabapentin 300 MG ORAL THREE TIMES A April 08, 2020 Active DAY PRN For Pain Ibuprofen 600 MG ORAL THREE TIMES A April 08, 2020 Active DAY PRN For Pain Levofloxacin 750 MG ORAL DAILY 10 April 08, 2020 Acti ve Encounters Encounter Facility Location Admit/Visit Discharge/Departure Atte nding Date Date Provider Departed [facility] Emergency April 08, 2020 April 08, 2020 10:10p m [facility] Department 9:44pm Departed [facility] DI April 08, 2020 April 08, 2020 [facility] Emergency April 08, 2020 April 08, 2020 12:39p m [facility] 10:03am Departed [facility] Emergency April 08, 2020 April 08, 2020 1:22am [facility] Department 12:35am Departed [facility] Emergency June 25June 25, 2019 [facility] Department 2018 1:09pm 3:45pm Functional Status Query Response Date Recorded Comment Comprehension Ability Understands Concepts April 08, 2020 12:50am Query Response Date Recorded Comment Living Situation Home April 08, 2020 9:51pm With Spouse Immunizations No known immunizations. Payers Payer Name Policy Type Covered Covered Relationship Subscriber Sub scriber Id Constitution Party Constitution Party Id MEDICAID OF Medicaid Verified Self/Same as Verif ied [place] Patient SELF PAY Personal Plan of Care No Known Plan of Care Information Social History Query Response Date Recorded Comment Alcohol Use No April 08, 2020 9:51pm Smoking Status Current every day smoker April 08, 2020 9:51pm Substance Use Treatment No April 08, 2020 9:51pm Substance/Street Drug Use No April 08, 2020 9:51pm alcohol intake frequency holidays/special occasions April 08 0 9:51pm only Query Response Start Date Stop Date Smoking Status Current every day smoker Vital Signs Vital Reading Result Reference Range Collection Date/ Time Weight 199.581 kg April 08, 2020 9: 45pm Temperature 98.1 F 97.6 F-99.6 F April 08, 2020 9: 45pm Pulse 118 BPM 60-100 April 08, 2020 9: 45pm Respiration 24 RPM 12-24 April 08, 2020 9: 45pm Pulse Oximetry 95 % 95-100 April 08, 2020 9: 45pm Blood Pressure Systolic 151 100-140 April 08, 2020 9:45pm Blood Pressure Diastolic 96 50-85 March 9:45pm
--- OUTSIDE RECORDS SUMMARY | 2022-03-21 09:29 | XMS_ITS | Continuity of Care Document ---
:1975 Author Organization [facility] Address [address] [place] [address] Care Team Providers Name Role Phone Jj Lopez JR Primary Care Physician Renzo Sweet Attending Physician Allergies, Adverse Reactions, Alerts Allergen Type Severity Reaction Last Updated Verified Status cephalexin Allergy gi upset January 13, 2021 Y Active Medications Active Medications Medication [...] Left epididymitis Inactive Procedures Procedure Date Status INTERFACE ELECTROCARDIOGRAM December 23, 2020 completed US [...] 8:35am Urine Specific April 09, 2020 1.025 [place] (Manual) 8:35am POC Urine RBC April 09, [...] 20, 34 U/L 17-59 Transf (AST/SGOT) 2019 11:01am Alanine August 20, 50 [...] Total Protein August 20, 7.3 g/dL 6.3-8.2 2020 07: Albumin August 20, 4.0 g/dL 3.5-5.0 2020 07: Cholesterol Level August 20, 229 mg/dL High 59-199 2020 07: HDL Cholesterol August 20, 33 mg/dL Low 40-60 The [place] ional Cholesterol Education Program (NCEP) has set the following guidelines (reference values) for cholesterol, HDL: 2020 07:01 Low HDL: <40 mg/dL Normal: 40-60 mg/dL Desirable: >60 mg/dL LDL Cholesterol August 20, 145.0 mg/dL High 0-129 2019 11:01am VLDL Cholesterol August 20, 51.0 mg/dL High 0-32 2019 11:am Cholesterol/HDL Ratio August 20, 6.93 High 0-3.9 2019 11: Triglycerides Level August 20, 255 mg/dL High 0-149 2020 07: Alkaline Phosphatase August 20, 103 U/L 38-126 2020 07:01 Thyroid Stimulating August 20, 1.89 mlU/L 0.47-4.68 The results of this Hormone (TSH) 2020 07:01am assay can be falsely decrea sed in [...] fo r providers can be found at: [facility].gov/MotorwayBuddy /425974/download Fact sheets fo r patients can be found at: [employer].gov/MotorwayBuddy /247529/download Chief Complaint and Reason for Visit Encounter Admit Date Chief Complaint Reason for Visit Departed Clinical January 19, 2021 5:02am Contact with and (suspecte d) exposure to COVID-19 Hospital Discharge Instructions No [...] Levofloxacin 750 MG ORAL DAILY April 08, ued 2019 Encounters Encounter Facility Location Admit/Visit Discharge/Departure Atte nding Date Date Provider Departed [facility] January 19, 2021 January 19, 2021 [facility]03[facility] December 23, December 23, 2020 5:05am [facility]December 07, 2020 7[facility]am [facility] 2020 [facility] 2020 11:32am 11:54am Kwaku [facility], 2020 Brett hart [facility] 2020 2:47pm 3:46pm Maty her Office Visit [facility] August 27August 27, 2020 Meri bowen [facility] 2019 2:26pm 2:27pm [facility] August 23August 23, 2020 Casper mercer JR [facility] 2019 11:13am 11:14am [facility] August 20August 20, 2020 [facility] 4:17pm 4:18pm Jj Departed [facility] June 29June 29, 2020 Meri obwen [facility] 2019 2:41pm 3:05pm Kwaku ovider Services Office Visit Departed [facility] June 18, June 18, 2020 Héctorchelsea kellie [facility] 2019 12:10pm 12:11pm [facility] June 10June 11, 2020 [facility] Department 2019 11:46pm 1:27am Departed [facility] June 04June 04, 2020 [facility] 2:17pm 2:18pm [facility] April 23April 23, 2020 Adi [facility] 2019 8:43am 8:44am [facility] April 09, 2020 April 09, 2020 9:40 am Adi [facility] 8:23am Kwaku ovider Services Office Visit Departed [facility] Emergency April 08, 2020 April 08, 2020 10:10p m [facility] Department 9:44pm Departed [facility] April 08, 2020 April 08, 2020 10:07a [facility] April 08, 2020 April 08, 2020 12:39p m [facility] Department 10:03am Departed [facility] Emergency April 08, 2020 April 08, 2020 1:22am [facility] Department 12:35am Functional Status Query Response Date Recorded Comment Comprehension Ability Understands Concepts April 08, 2020 12:50am Query Response Date Recorded Comment Living Situation Home January 13, 2021 2:20pm Immunizations No known immunizations. Plan of Care No Known Plan of Care Information Social History Query Response Date Recorded Comment Alcohol Use Yes January 13, 2021 2:20pm rare Smoking Status Current every day smoker January 13, 2021 2:20pm Substance Use Treatment No December 23, 2020 4:58am Substance/Street Drug Use Yes January 13, 2021 2:20pm occ asional alcohol intake frequency holidays/special occasions January 13, 2021 2:20pm only substance use type marijuana January 13, 2021 8:40am Query Response Start Date Stop Date Smoking Status Current every day smoker Vital Signs Vital Reading Result Reference Range Collection Date/ Time Height 6 ft 4 in September 24, 2020 11:36am Weight 201.849 kg December 23, 2020 3 :34am Temperature 97.6 F 97.6 F-99.6 F December 23, 2020 3 :34am Pulse 91 BPM 60-100 December 23, 2020 4 :36am Respiration 20 RPM 12-24 December 23, 2020 4 :36am Pulse Oximetry 97 % 95-100 December 23, 2020 4 :36am Blood Pressure Systolic 151 100-140 December 4:36am Blood Pressure Diastolic 96 50-85 December 092020 4:36am Body Mass Index 53.3 September 17, 2020 2:49pm
--- OUTSIDE RECORDS SUMMARY | 2022-03-21 09:29 | XMS_ITS | Continuity of Care Document ---
:1975 Author Organization Address [address] [place] [address] Care Team Providers Name Role Phone Jj Lopez JR Primary Care Physician Mackenzie Suarez Attending Physician Allergies, Adverse Reactions, Alerts Allergen [...] detection of nucleic acid from SARS-CoV-2. (RT-PCR) 2022 8:54pm This test has not been FDA cleared or approved. This test has been authorized by the FDA under an Emergency Use Authorization (EUA) for use by authorized laboratories. Fact sheets fo r providers can be found at: [facility].gov/media /426482/download Fact sheets fo r patients can be found at: [facility].gov/Mompery /306701/download Chief Complaint and Reason for Visit Encounter Admit Date Chief Complaint Reason for Visit Departed Clinical November 11, 2021 10:48am E04.2 - Nontoxic multinodular goiter Hospital Discharge Instructions No known hospital discharge [...] Discharge/Departure Atte nding Date Date Provider Departed [facility] November 11, 2021 November 11, 2021 10:49a m Erick [facility] 10:48am [facility] Departed [facility] October 11October 11, 2021 Darrick concepcion [facility] 2021 11:31am 12:03pm [facility] Office Visit Departed [facility] Emergency September 29September 29, 2021 [facility] Department 2021 6:31pm 9:12pm Departed [facility] September 15September 15, [address] [facility] 2021 1:43pm 1:44pm [facility] 08September 08, [address] [facility] 2020 5:01pm 5:02pm [facility] Departed [facility] Emergency August 13August 14, 2021 [facility] Department 2020 11:02pm 1:34am Departed [facility] Emergency February 22, 2021 February 22, 2021 1:38pm [facility] Department 12:47pm Departed [facility] February 10, 2021 February 10, 2021 3:07pm Adi [facility] 2:44pm [facility] Office Visit Departed [facility] February 01, 2021 February 01, 2021 3:30pm [facility] 3:29[facility] January 25, 2021 January 25, 2021 3:09pm [facility] 12:06pm [facility] January 19, 2021 January 19, 2021 5:03am [facility] 5:[facility] December 23December 23, 2020 5:05am [facility] Department 2020 3:24am [facility] December 07December 07, 2020 7:46am [facility] 2020 7:45am Melody Functional Status Query [...] September 29, 2021 8:52pm Respiration 18 RPM 12-September 29, 2021 8:52pm Pulse Oximetry 100 % 95-100 September 29, 2021 8:52pm Blood Pressure Systolic 130 100-140 October 11, 2021 11:44am Blood Pressure Diastolic 90 50-85 Februar 2021 11:44am Body Mass Index 56.2 January 13, 2021 8:40 am
--- OUTSIDE RECORDS SUMMARY | 2022-03-21 09:29 | XMS_ITS | Continuity of Care Document ---
:1975 Author Organization [facility] Address [address] [place] [address] Care Team Providers Name Role Phone Jj [...] 8:35am Urine Specific April 09, 2020 1.025 [place] (Manual) 8:35am POC Urine RBC April 09, [...] Bilirubin August 20, 0.5 mg/dL 0.2-1.3 2019 11:01 Aspartate Amino August 20, 34 U/L 17-59 Transf (AST/SGOT) 2020 07:01 Alanine August 20, 50 U/L As of [...] August 20, 229 mg/dL High 59-199 2020 07:01 HDL Cholesterol August 20, 33 mg/dL Low 40-60 The [place] ional Cholesterol Education Program (NCEP) has set the following guidelines (reference values) for cholesterol, HDL: 2020 07:01 Low HDL: <40 mg/dL Normal: 40-60 mg/dL Desirable: >60 mg/dL LDL Cholesterol August 20, 145.0 mg/dL High 0-129 2019 11:01am VLDL Cholesterol August 20, 51.0 mg/dL High 0-32 2020 07:am Cholesterol/HDL Ratio August 20, 6.93 High 0-3.9 [...] fo r providers can be found at: [facility].Blossom/FastScaleTechnology /387882/download Fact sheets fo r patients can be found at: [employer]Blossom/FastScaleTechnology /984694/download Chief Complaint and Reason for Visit Encounter Admit Date Chief Complaint Reason for Visit Departed Emergency December 23, 2020 3:24am PALPITATIONS Hospital Discharge Instructions No known hospital discharge [...] Date Provider Departed [facility] Emergency December 23December 23, 2020 5:05am [facility] Department 2020 3:24am Departed [facility] December 07, December 07, 2020 7:46am Mika dial [facility] 2020 7:45am Melody Departed [facility] September 24September 24, 2020 Meri bowen, [facility] 2020 11:32am 11:54am Kwaku her Services Office Visit Departed [facility] September 17September 17, 2020 Brett hart [facility] 2020 2:47pm 3:46pm Maty her Office Visit Departed [facility] August 27August 27, 2020 Meri bowen [facility] 2019 2:26pm 2:27pm [facility] August 23August 23, 2020 Casper mercer JR [facility] 2019 11:13am 11:14am [facility] August 20August 20, 2020 [facility] 4:17pm 4:18pm [facility] June 29June 29, 2020 Meri bowen [facility] 2019 2:41pm 3:05pm Kwaku ovider Services Office Visit Departed [facility] June 18June 18, 2020 Arianne liliaana [facility] 2019 12:10pm 12:11pm [facility] Departed [facility] Emergency June 10June 11, 2020 [facility] Department 2019 11:46pm 1:27am [facility] June 04June 04, 2020 [facility] 2019 2:17pm 2:18pm [facility] April 23April 23, 2020 Adi [facility] 2019 8:43am 8:44am [facility] April 09, 2020 April 09, 2020 9:40 am Adi [facility] 8:23am Kwaku ovider Services Office Visit Departed [facility] Emergency April 08, 2020 April 08, 2020 10:10p m [facility] Department 9:44pm [facility] April 08, 2020 April 08, 2020 10:07a [facility] 10:06am [facility] April 08, 2020 April 08, 2020 12:39p m [facility] Department 10:03am [facility] Emergency April 08, 2020 April 08, 2020 1:22am [facility] Department 12:35am Functional Status Query Response Date Recorded Comment Comprehension Ability Understands Concepts April 08, 2020 12:50am Query Response Date Recorded Comment Living Situation Home December 28, 2020 11:17am Immunizations No known immunizations. Plan of Care Instructions Palpitations (DC) COVID 19 General Instructions- decrease the spread of coronavirus ([facility]) Social History Query Response Date Recorded Comment Alcohol Use No December 28, 2020 11:17am Smoking Status Current every day smoker December 28, 2020 11:17am Substance Use Treatment No December 23, 2020 4:58am Substance/Street Drug Use Yes December 28, 2020 11:17am alcohol intake frequency holidays/special occasions December 28 11:17am only substance use type marijuana December 23, 2020 4:58am Query Response Start Date Stop Date Smoking [...]
--- OUTSIDE RECORDS SUMMARY | 2022-03-21 09:29 | XMS_ITS | Continuity of Care Document ---
:1975 Author Organization [facility] Address [address] [place] [address] Care Team Providers Name Role Phone Jj [...] Hypertension Inactive Procedures Procedure Date Status US Guided FNA BX Addtl Site November 11, 2021 active US Gd FNA Breast/Node/Thyroid November 11, 2021 active US Thyroid Soft Tissue Neck September 15, [...] fo r providers can be found at: [facility].gov/media /440918/download Fact sheets fo r patients can be found at: [facility].gov/media /722010/download Chief Complaint and Reason for Visit Encounter Admit Date Chief Complaint Reason for Visit Departed Clinical September 15, 2021 1:43pm Thyroiditis, unspecifie d Hospital Discharge Instructions No known hospital discharge instructions. Hospital Discharge Medications Medication Dose Units Route Sig Qty Days Order Status Instru ctions Date Levofloxacin 500 MG ORAL DAILY 10 19 August Discontin ued 2019 Gabapentin 300 MG [...] Active 2020 Amoxicillin 875 MG ORAL TWICE 14 16 August Discontinu ed A DAY 2020 Amoxicillin-Pot 1 TAB ORAL TWICE 29 September Active Clavulanate A DAY 2021 Encounters Encounter Facility Location Admit/Visit Discharge/Departure Atte nding Date Date Provider Registered [facility] November 11, 2021 Erick [facility] 10:48am [facility] Dep[facility] October 11October 11, 2021 Darrick concepcion [facility] 2021 11:31am 12:03pm [facility] Office Visit Departed [facility] Emergency September 29September 29, 2021 [facility] Department 2021 6:31pm 9:12pm Departed [facility] DI September 15September 15, 2021 Maria Teresa [facility] 2021 1:43pm 1:44pm [facility] 08September 08, 2021 Casper mercer JR [facility] 2020 5:01pm 5:02pm [facility] Departed [facility] Emergency August 13August 14, 2021 [facility] Department 2020 11:02pm 1:34am Departed [facility] Emergency February 22, 2021 February 22, 2021 1:38pm [facility] Department 12:47pm Departed [facility] February 10, 2021 February 10, 2021 3:07pm Adi [facility] 2:44pm [facility] Services Office Visit Departed [facility] February 01, 2021 February 01, 2021 3:30pm [facility] January 25, 2021 January 25, 2021 3:09pm Fabiola staton [facility] Center Services 12:06pm [facility] January 19, 2021 January 19, 2021 5:03am [facility] December 23December 23, 2020 5:05am [facility] 2020 3:24[facility] December 07December 07, 2020 7:46am [facility] 2020 7:45am Melody Functional Status Query [...]
--- OUTSIDE RECORDS SUMMARY | 2022-03-21 09:29 | XMS_ITS | Continuity of Care Document ---
:1975 Author Organization [facility] Address [address] [place] [address] Care Team Providers Name Role Phone Jj [...] r providers can be found at: fda.gov/media /187830/download Fact sheets fo r patients can be found at: [facility].gov/Commtimize /722934/download Chief Complaint and Reason for Visit Encounter [...] Discharge/Departure Atte nding Date Date Provider Departed [facility] September 15September 15, 2021 Maria Teresa [facility] 2021 1:43pm 1:44pm [facility] September 08September 08, 2021 [facility] 5:01[facility] 5:02pm [facility] Departed [facility] Emergency August 13August 14, 2021 [facility] Department 2020 11:02pm 1:34am Departed [facility] Emergency February 22, 2021 February 22, 2021 1:38pm [facility] Department 12:47pm Departed [facility] February 10, 2021 February 10, 2021 3:07pm Adi [facility] 2:44pm [facility] Office Visit Departed [facility] February 01, 2021 February 01, 2021 3:30pm [facility] January 25, 2021 January 25, 2021 3:09pm Fabiola staton Surgical [facility] Services 12:06pm [facility] Departed [facility] January 19, 2021 January 19, 2021 5:03am Fabiola staton, [facility] [place] 5:02am [facility] December 23December 23, 2020 5:05am [facility] Department 2020 3:24am Departed [facility] Curbside December 07December 07, 2020 7:46am Mika dial [facility] 2020 7:45am [facility] September 24September 24, 2020 Meri bowen, [facility] 2020 11:32am 11:54am Kwaku arden Services Office Visit Departed [facility] September 17September 17, 2020 Brett hart [...] 2021 1:30am Blood Pressure Diastolic 100 50-85 [facility] 2020 1:30am Body Mass Index 56.2 January 13, 2021 8:40 am
--- OUTSIDE RECORDS SUMMARY | 2022-03-21 09:29 | XMS_ITS | Continuity of Care Document ---
:1975 Author Organization [facility] Address [address] [place] [address] Care Team Providers Name Role Phone Carolina [...] Procedures Procedure Date Status US Testicles (Scrotal) June 04, 2020 completed [...] Interp. Ref. Range Result Comment POC Urinalysis April 09, 2020 Clinitek Auto Method 8:35am Urine Color (Manual) April 09, 2020 Yellow 8:35am Urine Clarity April 09, 2020 Clear (Manual) 8:35am POC Urine Glucose April 09, 2020 Negative 8:35am POC Urine Bilirubin April 09, 2020 Negative Confirmation 8:35am Urine Ketones April 09, 2020 Negative (Manual) 8:35am Urine Specific April 09, 2020 1.025 [place] (Manual) 8:35am POC Urine RBC April 09, 2020 Trace Intact 8:35am Urine pH (Manual) April 09, 2020 5.5 8:35am POC Urine Protein April 09, 2020 Negative Confirmation 8:35am Urine Urobilinogen April 09, 2020 0.2 (Manual) 8:35am Urine Nitrite April 09, 2020 Negative (Manual) 8:35am Urine Leukocyte April 09, 2020 Negative Esterase (Manual) 8:35am White Blood Count April 08, 2020 9.22 [...] Dioxide Level June 25, 2019 23 mmol/L 22-30 1:32pm Anion Gap June 25, 2019 10 [...] have a copy on file here at [facility]? No O ct2018 1:44pm Does patient have an Advanced Directive? No June 25, 2019 1:44pm Pt has a Living Will? No June 25, 2019 1 :44pm Pt has a Power of Airline Pilot? No June 25, 2019 1:44pm Chief Complaint [...] Discharge/Departure Atte nding Date Date Provider Departed [facility] June 04June 04, 2020 Gigi velez [facility] 2019 2:17pm 2:18pm [facility] Departed [facility] April 23April 23, 2020 Adi [facility] 2019 8:43am 8:44am [facility] Departed [facility] April 09, 2020 April 09, 2020 9:40 am Adi [facility] 8:23am [facility] Services Office Visit Departed [facility] Emergency April 08, 2020 April 08, 2020 10:10p m [facility] April 08, 2020 April 08, 2020 10:07a [facility] Departed [facility] Emergency April 08, 2020 April 08, 2020 12:39p m [facility] Department 10:03am Departed [facility] Emergency April 08, 2020 April 08, 2020 1:22am [facility] Department 12:35am Departed [facility] Emergency June 25June 25, 2019 Emergency [...] Party Constitution Party Id MEDICAID OF Medicaid YOLANDA FANG [id number] Self/Same as YOLANDA FANG [id number] [place] Patient SELF PAY Personal Plan of Care No Known Plan of Care Information Social History Query Response Date Recorded Comment Alcohol Use No April 08, 2020 9:51pm Smoking Status Current every day smoker April 09, 2020 8:34am Substance Use Treatment No April 08, 2020 9:51pm Substance/Street Drug Use No April 08, 2020 9:51pm alcohol intake frequency holidays/special occasions April 08 0 9:51pm only Query Response Start Date Stop Date Smoking Status Current every day smoker Vital Signs Vital Reading Result Reference Range Collection Date/ Time Height 6 ft 4 in April 09, 2020 8: 30am Weight 199.581 kg April 09, 2020 8: 30am Temperature 98.1 F 97.6 F-99.6 F April 08, 2020 9: 45pm Pulse 103 BPM 60-100 April 09, 2020 8: 30am Respiration 20 RPM 12-24 April 09, 2020 8: 30am Pulse Oximetry 95 % 95-100 April 08, 2020 9: 45pm Blood Pressure Systolic 128 100-140 April 09, 2020 8:30am Blood Pressure Diastolic 86 50-85 March 8:30am Body Mass Index 53.5 April 09, 2020 8: 30am
--- OUTSIDE RECORDS SUMMARY | 2022-03-21 09:29 | XMS_ITS | Continuity of Care Document ---
:1975 Author Organization [facility] Address [address] [place] [address] Care Team Providers Name Role Phone Jj [...] fo r providers can be found at: [facility].gov/media /763855/download Fact sheets fo r patients can be found at: [facility].gov/[employer] /819811/download Chief Complaint and Reason for Visit Encounter [...] Discharge/Departure Atte nding Date Date Provider Departed [facility] November 11, 2021 November 11, 2021 10:49a m Erick [facility] 10:48am [facility] Departed [facility] October 11October 11, 2021 Darrick concepcion [facility] 2021 11:31am 12:03pm [facility] Office Visit Departed [facility] Emergency September 29September 29, 2021 [facility] Department 2021 6:31pm 9:12pm Departed [facility] September 15September 15, 2021 Maria Teresa [facility] 2021 1:43pm 1:44pm [facility] September 08September 08, 2021 Casper mercer JR [facility] 2020 5:01pm 5:02pm [facility] Departed [facility] Emergency August 13August 14, 2021 [facility] Department 2020 11:02pm 1:34am Departed [facility] Emergency February 22, 2021 February 22, 2021 1:38pm [facility] Department 12:47pm Departed [facility] February 10, 2021 February 10, 2021 3:07pm Adi [facility] 2:44pm [facility] Services Office Visit Departed [facility] February 01, 2021 February 01, 2021 3:30pm [facility] 3:29pm [facility] January 25, 2021 January 25, 2021 3:09pm [facility] 12:06pm [facility] January 19, 2021 January 19, 2021 5:03am [facility] 5:02am [facility] December 23December 23, 2020 5:05am [facility] Department 2020 3:24am [facility] December 07December 07, 2020 7:46am [facility] 2020 7:45am Melody Functional Status [...]
--- OUTSIDE RECORDS SUMMARY | 2022-03-21 09:29 | XMS_ITS | Continuity of Care Document ---
:1975 Author Organization [facility] Address [address] [place] [address] Care Team Providers Name Role Phone Out of Town, Provider Primary Care Physician Unavailable Allergies, Adverse Reactions, Alerts Allergen [...] Active Problems Medical Problem Onset Date Status Testicular abscess Active Left epididymitis Active Inactive/Resolved Problems Medical Problem Onset Date Status Vaso-vagal reaction Inactive Procedures Procedure Date Status Hip 2 [...] a copy on file here at [facility]? No O ct2018 1:44pm Does patient have an Advanced Directive? No June 25, 2019 1:44pm Pt has a Living Will? No June 25, 2019 1 :44pm Pt has a Power of Sales And Marketing Agent? No June 25, 2019 1:44pm Chief Complaint and Reason for Visit Encounter Admit Date Chief Complaint Reason for Visit Departed Emergency April 08, 2020 10:03am FOLLOW UP US Hospital Discharge Instructions Additional Discharge Instructions Ultrasound shows uri ticular abscess. Continue taking levofloxacin 750 mg as prescribed. This condition has a potenti al to become very serious and even causing systemic sepsis and could be life-threatening. For this reason, if you star t having more severe pain, fever, vomiting, shaking chills, feeling very ill or other new worrisome or rapidly developing symptoms then you need to come back to the emergency department right away. You will need to call Dr. Ashli whitney's office today to arrange an appointment in the office. Because you were not able to wait for your blood work today, we agreed that if there are any concerning findings that you will return to the emergency department if needed. Instruction/Education Provided COVID 19 General Instru ctions- decrease the spread of coronavirus ([facility]) Hospital Discharge Medications Medication Dose Units Route [...] Discharge/Departure Atte nding Date Date Provider Registered [facility] April 08, 2020 Timothy [facility] 10:06am [facility] Departed [facility] Emergency April 08, 2020 April 08, 2020 12:39p m [facility] Department 10:03am Departed [facility] Emergency April 08, 2020 April 08, 2020 1:22am [facility] Department 12:35am Departed [facility] Emergency June 25June 25, 2019 [facility] Department 2019 1:09pm 3:45pm Functional Status Query Response Date Recorded Comment Comprehension Ability Understands Concepts April 08, 2020 12:50am Query Response Date Recorded Comment Living Situation Home April 08, 2020 12:37pm Immunizations No known immunizations. Payers Payer Name Policy Type Covered Covered Relationship Subscriber Sub scriber Id Constitution Party Constitution Party Id MEDICAID OF Medicaid [id number] [place] [id number] [place] Patient SELF PAY Personal Plan of Care Instructions COVID 19 General Instructions- decrease the spread of coronavirus ([facility]) Social History Query Response Date Recorded Comment Alcohol Use No April 08, 2020 12:00pm Smoking Status Current every day smoker April 08, 2020 12:00pm Substance Use Treatment No April 08, 2020 12:00pm Substance/Street Drug Use No April 08, 2020 12:00pm alcohol intake frequency holidays/special occasions April 08 0 12:00pm only Query Response Start Date Stop Date Smoking Status Current every day smoker Vital Signs Vital Reading Result Reference Range Collection Date/ Time Weight 199.581 kg April 08, 2020 12 :00pm Temperature 98.2 F 97.6 F-99.6 F April 08, 2020 12 :00pm Pulse 106 BPM 60-100 April 08, 2020 12 :00pm Respiration 18 RPM 12-24 April 08, 2020 12 :00pm Pulse Oximetry 97 % 95-100 April 08, 2020 12 :00pm Blood Pressure Systolic 162 100-140 April 08, 2020 12:00pm Blood Pressure Diastolic 98 50-85 March 12:00pm
--- OUTSIDE RECORDS SUMMARY | 2022-03-21 09:29 | XMS_ITS | Continuity of Care Document ---
:1975 Author Organization [facility] Address [address] [place] [address] Care Team Providers Name Role Phone Carolina [...] 8:35am Urine Specific April 09, 2020 1.025 [place] (Manual) 8:35am POC Urine RBC April 09, [...] have a copy on file here at [facility]? No O ct2018 1:44pm Does patient have an Advanced Directive? No June 25, 2019 1:44pm Pt has a Living Will? No June 25, 2019 1 :44pm Pt has a Power of Toe Puncher? No June 25, 2019 1:44pm Chief Complaint [...] Discharge/Departure Atte nding Date Date Provider Departed [facility] June 04June 04, 2020 Gigi velez [facility] 2019 2:17pm 2:18pm [facility] Departed [facility] April 23April 23, 2020 Adi [facility] 2019 8:43am 8:44am [facility] Departed [facility] April 09, 2020 April 09, 2020 9:40 am Adi [facility] 8:23am [facility] Services Office Visit Departed [facility] Emergency April 08, 2020 April 08, 2020 10:10p m [facility] Department 9:44[facility] April 08, 2020 April 08, 2020 10:07a [facility] Departed [facility] Emergency April [...] Party Id MEDICAID OF Medicaid YOLANDA FANG [id number] Self/Same as YOLANDA FANG [id number] [place] Patient SELF PAY Personal Plan of [...]
--- OUTSIDE RECORDS SUMMARY | 2022-03-21 09:29 | XMS_ITS | Continuity of Care Document ---
:1975 Author Organization [facility] Address [address] [place] [address] Care Team Providers Name Role Phone Jj Lopez JR Primary Care Physician Renzo Sweet Attending Physician Allergies, Adverse Reactions, Alerts Allergen Type Severity Reaction Last Updated Verified Status cephalexin Allergy gi upset January 25, 2021 Y Active Medications Active Medications Medication [...] Left epididymitis Inactive Procedures Procedure Date Status Provider(s) Colonoscopy January 25, 2021 completed Renzo Sweet MD INTERFACE ELECTROCARDIOGRAM December 23, 2020 completed US [...] 8:35am Urine Specific April 09, 2020 1.025 [place] (Manual) 8:35am POC Urine RBC April 09, [...] August 20, 33 mg/dL Low 40-60 [facility] ional Cholesterol Education Program (NCEP) has set the following guidelines (reference values) for cholesterol, HDL: 2020 07: Low HDL: <40 mg/dL Normal: 40-60 mg/dL Desirable: >60 mg/dL LDL Cholesterol August 20, 145.0 mg/dL High 0-129 2020 07: VLDL Cholesterol August 20, 51.0 mg/dL High 0-32 2020 07:am Cholesterol/HDL Ratio August 20, 6.93 High 0-3.9 2020 07: Triglycerides Level August 20, 255 mg/dL High 0-149 2020 07: Alkaline Phosphatase August 20, 103 U/L 38-126 2020 07: Thyroid Stimulating August 20, 1.89 mlU/L 0.47-4.68 The results of this Hormone (TSH) 2020 07: assay can be falsely decrea sed in [...] fo r providers can be found at: [facility].gov/media /471428/download Fact sheets fo r patients can be found at: [employer].gov/[employer] /087377/download Chief Complaint and Reason for Visit Encounter Admit Date Chief Complaint Reason for Visit Departed Surgical Day January 25, 2021 Hemorrhage of anus and Chandni nge in bowel function Care 12:06pm rectum Morbid obesity d ue to excess calories Smoker Hospital Discharge Instructions No known hospital [...] Discharge/Departure Atte nding Date Date Provider Departed [facility] January 25, 2021 January 25, 2021 3:09pm [facility] January 19, 2021 January 19, 2021 5:03am [facility] December 23December 23, 2020 5:05am [facility] Department 2020 3:24am [facility] December 07December 07, 2020 7:46am [facility] 2020 7:45am [facility] September 24September 24, 2020 Meri bowen [facility] 2020 11:32am 11:54am [place] her Services Office Visit Dep[facility]ed [facility] September 17September 17, 2020 Brett hart [facility] Medicine 2020 2:47pm 3:46pm Maty her [facility] August 27August 27, 2020 Meri bowen [facility] 2019 2:26pm 2:27pm [facility] August 23August 23, 2020 [facility]per [facility]cer [facility] 2019 11:13am 11:14am [facility] August 20August 20, 2020 [facility] 4:17[facility] 4:18pm Jj [facility] June 29June 29, 2020 Meri bowen [facility] 2019 2:41pm 3:05pm Kwaku ovider Services [facility] June 18June 18, 2020 Muthukr ishn [facility] 2019 12:10pm 12:11pm [facility] June 10June 11, 2020 [facility] Department 2019 11:46pm 1:27am [facility] June 04June 04, [address] [facility] 2019 2:17pm 2:18pm [facility] April 23April 23, 2020 Adi [facility] 2019 8:43am 8:44am [facility] April 09, 2020 April 09, 2020 9:40 am Adi [facility] 8:23am Kwaku ovider Services [facility] April 08, 2020 April 08, 2020 10:10p m Emergency [facility] Department 9:44pm [facility] April 08, 2020 April 08, 2020 10:07a [facility] 10:06am [facility] Emergency April 08, 2020 April 08, 2020 12:39p m [facility] Department 10:03am [facility] April 08, 2020 April 08, 2020 1:22am [facility] Department 12:35am Encounter Diagnosis Onset Date Change in bowel function Morbid obesity due to excess calories Smoker Functional Status Query Response Date Recorded Comment Comprehension Ability Understands Concepts April 08, 2020 12:50am Mood/Behavior Appropriate April 08, 2020 12:50am Query Response Date Recorded Comment Living Situation Home January 13, 2021 2:20pm Immunizations No known immunizations. Plan of Care Instructions COVID 19 General Instructions- decrease the spread of coronavirus ([facility]) Social History Query Response Date Recorded Comment Alcohol Use Yes January 25, 2021 12:45pm rare Smoking Status Current every day smoker January 25, 2021 12:45pm Substance Use Treatment No December 23, 2020 4:58am Substance/Street Drug Use Yes January 25, 2021 12:45pm o ccasional alcohol intake frequency holidays/special occasions January 13, 2021 2:20pm only substance use type marijuana January 13, 2021 8:40am Query Response Start Date Stop Date Smoking Status Current every day smoker Vital Signs Vital Reading Result Reference Range Collection Date/ Time Height 6 ft 3 in January 13, 2021 8:40 am Weight 204.117 kg January 13, 2021 8:40 am Temperature 99 F 97.6 F-99.6 F January 25, 2021 2:1 0pm Pulse 118 BPM 60-100 January 25, 2021 2:4 8pm Respiration 16 RPM 12-24 January 25, 2021 2:4 8pm Pulse Oximetry 100 % 95-100 January 25, 2021 2:4 8pm Blood Pressure Systolic 128 100-140 January 25, 2021 2:48pm Blood Pressure Diastolic 89 50-85 January 25, 2021 2:48pm Body Mass Index 56.2 January 13, 2021 8:40 am
--- OUTSIDE RECORDS SUMMARY | 2022-03-21 09:29 | XMS_ITS | Continuity of Care Document ---
:1975 Author Organization [facility] Address [address] [place] [address] Care Team Providers Name Role Phone PCP, of Choice Primary Care Physician Unavailable Allergies, Adverse Reactions, Alerts Allergen Type Severity Reaction Last Updated Verified Status cephalexin Allergy June 25, 2019 Y Ac tive Medications No medication information available. Problem List Active Problems Medical Problem Onset Date Status Vaso-vagal reaction Active Procedures Procedure Date Status Chest 2 vw June 25, 2019 completed Relevant Diagnostic Tests and/or Laboratory Data Laboratory Results Test Date/Time Result Interp. Ref. Range Result Comment White Blood Count June 25, 2019 7.25 1000/mm3 4.8-10.8 1:32pm Red Blood Count June 25, 2019 5.10 M/mm3 4.70-6.00 1:32pm Hemoglobin June 25, 2019 14.2 g/dL 14.0-18.0 1:32pm Hematocrit June 25, 2019 43.7 % 42-52 1:32pm Mean Corpuscular June 25, 2019 85.7 fL 80.0-94.0 Volume 1:32pm Mean Corpuscular June 25, 2019 27.8 pg 27-31 Hemoglobin 1:32pm Mean Corpuscular June 25, 2019 32.5 g/dL Low 33-37 Hemoglobin Concent 1:32pm Red Cell June 25, 2019 13.6 % 11.5-14.5 Distribution Width 1:32pm Platelet Count June 25, 2019 249 1000/mm3 140-440 1:32pm Mean Platelet Volume June 25, 2019 10.4 fL 7.4-10.4 1:32pm Neutrophils (%) June 25, 2019 59.3 % 40.0-72.0 (Auto) 1:32pm Lymphocytes (%) June 25, 2019 31.0 % 17-45 (Auto) 1:32pm Monocytes (%) (Auto) June 25, 2019 6.6 % 3-11 1:32pm Eosinophils (%) June 25, 2019 1.8 % 0-3 (Auto) 1:32pm Basophils (%) (Auto) June 25, 2019 0.7 % 0-1 1:32pm Immature Granulocyte June 25, 2019 0.6 % 0-1 % (Auto) 1:32pm Neutrophils # (Auto) June 25, 2019 4.30 1000/mm3 1.4-6. 5 1:32pm Lymphocytes # (Auto) June 25, 2019 2.25 1000/mm3 1.2-3. 4 1:32pm Monocytes # (Auto) June 25, 2019 0.48 1000/mm3 0.0-0.8 1:32pm Eosinophils # (Auto) June 25, 2019 0.13 1000/mm3 0.0-0. 7 1:32pm Basophils # (Auto) June 25, 2019 0.05 1000/mm3 0.0-0.1 1:32pm Absolute Immature June 25, 2019 0.0 0-1 Granulocyte (auto 1:32pm Differential Method June 25, 2019 Automated 1:32pm Sodium Level June 25, 2019 137 mmol/L [...] falsely decreased in patients who consume Biotin. Chief Complaint and Reason for Visit Encounter Admit Date Chief Complaint Reason for Visit Departed Emergency June 25, 2019 1:09pm Back Up Hospital Discharge Instructions Additional Discharge Instructions Be sure to drink ple nty of fluids. Return to the ER for any worsening symptoms o r concerns. No Instructions/Education Provided Encounters Encounter Facility Location Admit/Visit Discharge/Departure Atte nding Date Date Provider Departed [facility] Emergency June 25June 25, 2019 [facility] Department 2018 1:09pm 3:45pm Functional Status Query Response Date Recorded Comment Living Situation Home June 25, 2019 3:45pm Immunizations No known immunizations. Payers Payer Name Policy Type Covered Covered Relationship Subscriber Sub scriber Id Green Party Green Party Id SELF PAY Personal Plan of Care No Known Plan of Care Information Social History No known social history. Vital Signs Vital Reading Result Reference Range Collection Date/ Time Height n/a Weight 190.962 kg June 25, 2019 1:13pm Temperature 97.4 F 97.6 F-99.6 F June 25, 2019 1:13pm Pulse 98 BPM 60-100 June 25, 2019 3:45pm Respiration 20 RPM 12-24 June 25, 2019 3:45pm Pulse Oximetry 98 % 95-100 June 25, 2019 3:45pm Blood Pressure Systolic 130 100-140 June 25, 2019 3:45pm Blood Pressure Diastolic 72 50-85 June 25, 2019 3:45pm Body Mass Index n/a
--- OUTSIDE RECORDS SUMMARY | 2022-03-21 09:29 | XMS_ITS | Continuity of Care Document ---
:1975 Author Organization [facility] Address [address] [place] [address] Care Team Providers Name Role Phone Carolina [...] Procedures Procedure Date Status US Testicles (Scrotal) April 23, 2020 completed [...] 8:35am Urine Specific April 09, 2020 1.025 Alvin (Manual) 8:35am POC Urine RBC April 09, [...] have a copy on file here at [facility]? No O ct2018 1:44pm Does patient have an Advanced Directive? No June 25, 2019 1:44pm Pt has a Living Will? No June 25, 2019 1 :44pm Pt has a Power of Behavioral Technician? No June 25, 2019 1:44pm Chief Complaint and Reason for Visit Encounter Admit Date Chief Complaint Reason for Visit Departed Clinical April 23, 2020 8:43am Orchitis and epididymit is Hospital Discharge Instructions No known hospital discharge [...] Discharge/Departure Atte nding Date Date Provider Departed [facility] April 23April 23, 2020 Adi [facility] 2019 8:43am 8:44am [facility] Departed [facility] April 09, 2020 April 09, 2020 9:40 am Adi [facility] 8:23am [facility] Services Office Visit Departed [facility] Emergency April 08, 2020 April 08, 2020 10:10p m [facility] Department 9:44pm Departed [facility] DI April 08, 2020 April 08, 2020 10:07a m [facility] 10:06am [facility] Departed [facility] Emergency April 08, 2020 April 08, 2020 12:39p m [facility] Department 10:03am Departed [facility] Emergency April 08, 2020 April 08, 2020 1:22am [facility] Department 12:35am Departed [facility] Emergency June 25June 25, 2019 [...] Republican Id MEDICAID OF Medicaid YOLANDA FANG [id number] Self/Same as YOLANDA FANG [id number] [place] Patient SELF PAY Personal Plan of Care [...]
--- OUTSIDE RECORDS SUMMARY | 2022-03-21 09:29 | XMS_ITS | Continuity of Care Document ---
:1975 Author Organization [facility] Address [address] [place] [address] Care Team Providers Name Role Phone Out [...] Active Problems Medical Problem Onset Date Status Left epididymitis Active Inactive/Resolved Problems Medical Problem Onset Date Status Vaso-vagal reaction Inactive Procedures Procedure Date Status US Testicles (Scrotal) April 08, 2020 active Chest 2 vw June 25, 2019 completed [...] :44pm Pt has a Power of Sales Account Associate? No June 25, 2019 1:44pm Chief Complaint and Reason for Visit Encounter Admit Date Chief Complaint Reason for Visit Departed Emergency April 08, 2020 12:35am TESTICLE PAIN Hospital Discharge Instructions Additional Discharge Instructions Return [facility] ER for ultrasound in the morning Instruction/Education Provided Epididymitis (DC) COVID 19 General Instruction s- decrease the spread of coronavirus ([facility]) Hospital Discharge Medications Medication Dose Units Route [...] Date Provider Departed [facility] Emergency April 08, 2020 April 08, 2020 1:22am [facility] Department 12:35am Departed [facility] Emergency June 25, June 25, 2019 [facility] Department 2019 1:09pm 3:45pm Functional Status Query Response Date Recorded Comment Comprehension Ability Understands Concepts April 08, 2020 12:50am Query Response Date Recorded Comment Living Situation Home April 08, 2020 1:22am With Spouse Immunizations No known immunizations. Payers Payer Name Policy Type Covered Covered Relationship Subscriber Sub scriber Id Green Party Green Party Id MEDICAID OF Medicaid [id number] [place] [id number] [place] Patient SELF PAY Personal Plan of Care Instructions Epididymitis (DC) COVID 19 General Instructions- decrease the spread of coronavirus ([facility]) Social History Query Response Date Recorded Comment Alcohol Use No April 08, 2020 1:03am Smoking Status Current every day smoker April 08, 2020 1:03am Substance Use Treatment No April 08, 2020 1:03am Substance/Street Drug Use No April 08, 2020 1:03am alcohol intake frequency holidays/special occasions April 08 0 1:03am only Query Response Start Date Stop Date Smoking Status Current every day smoker Vital Signs Vital Reading Result Reference Range Collection Date/ Time Weight 199.581 kg April 08, 2020 12 :38am Temperature 98.0 F 97.6 F-99.6 F April 08, 2020 12 :38am Pulse 120 BPM 60-100 April 08, 2020 12 :38am Respiration 24 RPM 12-24 April 08, 2020 12 :38am Pulse Oximetry 96 % 95-100 April 08, 2020 12 :38am Blood Pressure Systolic 151 100-140 April 08, 2020 12:38am Blood Pressure Diastolic 86 50-85 March 12:38am
--- OUTSIDE RECORDS SUMMARY | 2022-03-21 09:29 | XMS_ITS | Continuity of Care Document ---
:1975 Author Organization [facility] Address [address] [place] [address] Care Team Providers Name Role Phone Carolina Aguirre Primary Care Physician Allergies, Adverse Reactions, Alerts [...] have a copy on file here at [facility]? No O ct2018 1:44pm Does patient have an Advanced Directive? No June 25, 2019 1:44pm Pt has a Living Will? No June 25, 2019 1 :44pm Pt has a Power of Radio Station Engineer? No June 25, 2019 1:44pm Chief Complaint and Reason for Visit Encounter Admit Date Chief Complaint Reason for Visit Departed Emergency April 08, 2020 9:44pm TESTICULAR COMPLAINT Hospital Discharge Instructions No known hospital discharge [...] Discharge/Departure Atte nding Date Date Provider Departed [facility] Emergency April 08, 2020 April 08, 2020 10:10p m [facility] Department 9:44pm Registered [facility] Departed [facility] Emergency April 08, 2020 April 08, 2020 12:39p m [facility] Department 10:03am Departed [facility] Emergency April 08, 2020 April 08, 2020 1:22am [facility] Department 12:35am Departed [facility] Emergency June 25June 25, 2019 [facility] Department 2019 1:09pm 3:45pm Functional Status Query Response Date Recorded Comment Comprehension Ability Understands Concepts April 08, 2020 12:50am Query Response Date Recorded Comment Living Situation Home April 08, 2020 9:51pm With Spouse Immunizations No known immunizations. Payers Payer Name Policy Type Covered Covered Relationship Subscriber Sub scriber Id Libertarian Libertarian Id MEDICAID OF Medicaid Verified Self/Same as Verif ied [place] Patient SELF PAY Personal Plan of Care [...]
--- OUTSIDE RECORDS SUMMARY | 2022-03-21 09:30 | XMS_ITS | Continuity of Care Document ---
:1975 Author Organization Address [address] [place] [address] Care Team Providers Name Role Phone Jj [...] Meloxicam MG August 13, Ac tive 2020 Amoxicillin 875 MG ORAL TWICE A DAY 14 August 14, Active 2020 Discontinued Medications Medication Dose Units Route [...] Chest w/wo Contrast August 23, 2020 completed Relevant Diagnostic Tests and/or Laboratory Data Laboratory Results Test Date/Time Result Interp. Ref. Result Comment Range White Blood Count December 23, 2020 8.70 [...] adult patients has been updated. Aminotransferase 2019 11:01am The Re ference Range for ALT/SGPT has [...] r providers can be found at: fda.gov/media /761061/download Fact sheets fo r patients can be found at: fda.gov/media /238686/download Chief Complaint and Reason for Visit Encounter Admit Date Chief Complaint Reason for Visit Departed Emergency August 13, 2021 11:02pm S/P EAR INFECTION Hospital Discharge Instructions Additional Discharge Instructions Start taking antibio tics tomorrow afternoon if your symptoms do not improve or i f you develop fever. Instruction/Education Provided Ear Infection ED Hospital Discharge Medications Medication Dose Units Route [...] 875 MG ORAL TWICE 14 16 August Active A DAY 2020 Encounters Encounter Facility Location Admit/Visit Discharge/Departure Atte nding Date Date Provider Departed [facility] Emergency August 13August 14, 2021 [facility] Department 2020 11:02pm 1:34am Departed [facility] Emergency February 22, 2021 February 22, 2021 1:38pm [facility] Department 12:47pm Departed [facility] February 10, 2021 February 10, 2021 3:07pm [facility]i [facility] 2:44pm [place] [facility] Office Visit Departed [facility] February 01, 2021 February 01, 2021 3:30pm [facility] January 25, 2021 January 25, 2021 3:09pm Fabiola staton [facility] 12:06pm [facility] 19, 2021 January 19, 2021 5:03am [facility] December 23December 23, 2020 5:05am [facility] Department 2020 3:24am Departed [facility] December 07December 07, 2020 7:46am Mika dial [facility] 2020 7:45am [facility] 24September 24, 2020 Meri bowen [facility] 2020 11:32am 11:54am [facility] 17September 17, 2020 Brett hart [facility] 2020 2:47pm 3:46pm Maty [facility] 27August 27, 2020 [facility] 2019 2:26pm 2:27pm [facility] August 23August 23, 2020 [facility]per [facility]cer [facility] 2019 11:13am 11:14am [facility] 20August 20, 2020 [facility] 2019 4:17pm 4:18pm Jj Functional Status Query Response Date Recorded Comment Comprehension Ability Understands Concepts February 22, 2021 1:05pm Mood/Behavior Appropriate February 22, 2021 1:05pm Query Response Date Recorded Comment Living Situation With Family August 14, 2021 1:34am Immunizations Immunization Name Date Given Type Covid-19 30mcg/0.3ml Pfizer December 29, 2020 Historical Covid-19 30mcg/0.3ml Pfizer January 19, 2021 Historical Plan of Care Instructions Ear Infection ED Social History Query Response [...] 2021 1:30am Blood Pressure Diastolic 100 50-85 [facility] 2020 1:30am Body Mass Index 56.2 January 13, 2021 8:40 am
--- OUTSIDE RECORDS SUMMARY | 2022-03-21 09:30 | XMS_ITS | Continuity of Care Document ---
:1975 Author Organization [facility] Address [address] [place] [address] Care Team Providers Name Role Phone Carolina [...] 8:35am Urine Specific April 09, 2020 1.025 [place] (Manual) 8:35am POC Urine RBC April 09, [...] have a copy on file here at [facility]? No O ct2018 1:44pm Does patient have an Advanced Directive? No June 25, 2019 1:44pm Pt has a Living Will? No June 25, 2019 1 :44pm Pt has a Power of Dental Equipment Technician? No June 25, 2019 1:44pm Chief [...] Discharge/Departure Atte nding Date Date Provider Departed [facility] April 23April 23, 2020 Adi [facility] 2019 8:43am 8:44am [facility] Departed [facility] April 09, 2020 April 09, 2020 9:40 am [facility]i [facility] 8:23am [facility] Services Office Visit Departed [facility] Emergency April 08, 2020 April 08, 2020 10:10p m [facility] Department 9:44pm Departed [facility] DI April 08, 2020 April 08, 2020 10:07a [facility] Departed [facility] Emergency April 08, 2020 April 08, 2020 12:39p m [facility] Department 10:03am Departed [facility] Emergency April 08, 2020 April 08, 2020 1:22am [facility] Department 12:35am Departed [facility] Emergency June 25June 25, 2019 Emergency [...] Id Libertarian Libertarian Id MEDICAID OF Medicaid YOLANDA FANG [id number] Self/Same as YOLANDA FANG [id number] [place] Patient SELF PAY Personal Plan of Care [...]
--- OUTSIDE RECORDS SUMMARY | 2022-03-21 09:30 | XMS_ITS | Continuity of Care Document ---
:[address] [facility] Address [address] [place] [address] Care Team Providers Name Role Phone Kwaku Joshi Attending Physician Jj Lopez JR Primary Care Physician Unavailable Allergies, Adverse Reactions, [...] April 09, 2020 Negative 8:35am Urine Specific [place] April 09, 2020 1.025 (Manual) 8:35am POC [...] 11:01am Platelet Count August 20, 328 1000/mm3 [phone] 11:01am Mean Platelet Volume August 20, 10.9 [...] August 20, 7.45 1000/mm3 High 1.4-6.5 2019 Lymphocytes # (Auto) August 20, 3.56 1000/mm3 High 1.2-3.4 2019 Monocytes # (Auto) August 20, 0.71 1000/mm3 0.0-0.8 2020 07: Eosinophils # (Auto) August 20, 0.16 1000/mm3 0.0-0.7 2019 Basophils # (Auto) August 20, 0.07 1000/mm3 0.0-0.1 2019 Absolute Immature August 20, 0.1 0-1 Granulocyte (auto 2020 07: Differential Method August 20, Automated 2020 07: Sodium Level August 20, 137 mmol/L [phone] 11:01am Potassium Level August 20, 4.3 mmol/L 3.6-5.0 2019 Chloride Level August 20, 105 mmol/L 98-107 2019 Carbon Dioxide Level August 20, 26 mmol/L 22-30 2019 Anion Gap August 20, 6 Low 7-16 2019 Blood Urea Nitrogen August 20, 12 mg/dL 8-26 2020 07: Creatinine August 20, 0.95 mg/dL 0.66-1.25 2020 07: Glomerular Filtration August 20, > 60 mL/min 60.0- Rate Calc 2019 Glucose Level August 20, 101 mg/dL High 70-100 2019 Calcium Level August 20, 9.4 mg/dL 8.4-10.2 2019 Calcium Adjusted for August 20, 9.6 mg/dL 8.4-10.2 Albumin 2019 Total Bilirubin August 20, 0.5 mg/dL 0.2-1.3 2019 Aspartate Amino Transf August 20, 34 U/L 17-59 (AST/SGOT) 2019 Alanine August 20, 50 U/L As of 01/09/20 , the Reference Range for ALT/SGPT for adult patients has been updated. Aminotransferase 2019 The Re ference Range for ALT/SGPT has not been established for patients <18 years of age. (ALT/SGPT) Troponin I June 11, 2020 < 0.012 ng/mL 0-0.034 Refere nce Range: <0.034 ng/mL : AMI Cut-off 0 .120 ng/mL The result s of this assay can be falsely decreased in patients who consume Biotin. Total Protein August 20, 7.3 g/dL 6.3-8.2 2020 07: Albumin August 20, 4.0 g/dL 3.5-5.0 2020 07: Cholesterol Level August 20, 229 mg/dL High 59-199 2020 07: HDL Cholesterol August 20, 33 mg/dL Low 40-60 The [facility] Cholesterol Education Program (NCEP) has set the following guidelines (reference values) for cholesterol, HDL: 2020 07: Low HDL: <40 mg/dL Normal: 40-60 mg/dL Desirable: >60 mg/dL LDL Cholesterol August 20, 145.0 mg/dL High 0-129 2020 07: VLDL Cholesterol August 20, 51.0 mg/dL High 0-32 2020 07: Cholesterol/HDL Ratio August 20, 6.93 High 0-3.9 2020 07: Triglycerides Level August 20, 255 mg/dL High 0-149 2020 07: Alkaline Phosphatase August 20, 103 U/L 38-126 2020 07: Thyroid Stimulating August 20, 1.89 mlU/L 0.47-4.68 The results of Hormone (TSH) 2020 07: this assa y can be falsely decreased [...] Date Provider Departed [facility] August 27August 27, 2020 [facility] 2:26pm 2:27pm [facility] August 23August 23, 2020 Casper mercer [facility] 11:13am 11:14am [facility] 20August 20, 2020 [facility] 2019 4:17pm 4:18pm Jj Departed [facility] June 29, June 29, 2020 Meri bowen [facility] 2019 2:41pm 3:05pm Kwaku ovider Services Office Visit Departed [facility] June 18, June 18, 2020 Stefaniapardeep kellie [facility] 2019 12:10pm 12:11pm [facility] Emergency June 10June 11, 2020 [facility] Department 2019 11:46pm 1:27am Departed [facility] June 04June 04, 2020 [facility] 2:17pm 2:18pm [facility] April 23April 23, 2020 Adi [facility] 2019 8:43am 8:44am [facility] April 09, 2020 April 09, 2020 9:40 am Adi [facility] 8:23am Kwaku ovider Services Office Visit Departed [facility] Emergency April 08, 2020 April 08, 2020 10:10p m [facility] Department 9:44pm [facility] April 08, 2020 April 08, 2020 10:07a [facility] 10:06[facility] April 08, 2020 April 08, 2020 [...]
--- OUTSIDE RECORDS SUMMARY | 2022-03-21 09:30 | XMS_ITS | Continuity of Care Document ---
:[address] [facility] Address [address] [place] [address] Care Team Providers Name Role Phone Jj [...] r providers can be found at: [facility].gov/[employer] /776803/download Fact sheets fo r patients can be found at: [employer].gov/[employer] /510428/download Chief Complaint and Reason for Visit Encounter [...] 16 August Discontinu ed A DAY 2020 Encounters Encounter Facility Location Admit/Visit Discharge/Departure Atte nding Date Date Provider Departed [facility] September 15September 15, 2021 Maria Teresa [facility] 2021 1:43pm 1:44pm [facility] Departed [facility] September 08September 08, 2021 [facility] 2020 5:01pm 5:02pm [facility] August 13August 14, 2021 [facility] Department 2020 11:02pm 1:34am Departed [facility] Emergency February 22, 2021 February 22, 2021 1:38pm [facility] Department 12:47pm Departed [facility] February 10, 2021 February 10, 2021 3:07pm Aid [facility] 2:44pm [facility] Services Office Visit Departed [facility] February 01, 2021 February 01, 2021 3:30pm [facility] 3:29pm [facility] January 25, 2021 January 25, 2021 3:09pm Fabiola staton Surgical [facility] Services 12:06pm [facility] Emergency Department Departed [facility] January 19, 2021 January 19, 2021 5:03am [facility] December 23December 23, 2020 5:05am [facility] Department 2020 3:24am Departed [facility] Curbside December 07December 07, 2020 7:46am Mika dial, [facility] 2020 7:45am Melody Functional Status Query [...] August 14, 2021 1:30am Respiration 22 RPM 12-August 14, 2021 1:30am Pulse Oximetry 98 % 95-100 August 14, 2021 1:30am Blood Pressure Systolic 160 100-140 August 14, 2021 1:30am Blood Pressure Diastolic 100 50-85 [facility] 2020 1:30am Body Mass Index 56.2 January 13, 2021 8:40 am
--- OUTSIDE RECORDS SUMMARY | 2022-03-21 09:30 | XMS_ITS | Continuity of Care Document ---
:1975 Author Organization [facility] Address [address] [place] [address] Care Team Providers Name Role Phone Jj Lopez JR Primary Care Physician Kwaku Joshi Attending Physician [...] January 25, 2021 completed Renzo Sweet MD US Testicles (Scrotal) February 01, 2021 completed INTERFACE ELECTROCARDIOGRAM December 23, 2020 completed US [...] 8:35am Urine Specific April 09, 2020 1.025 [place] (Manual) 8:35am POC Urine RBC April 09, [...] August 20, 229 mg/dL High 59-199 2020 07:01am HDL Cholesterol August 20, 33 mg/dL Low 40-60 The [place] ional Cholesterol Education Program (NCEP) has set the following guidelines (reference values) for cholesterol, HDL: 2020 07:01 Low HDL: <40 mg/dL Normal: 40-60 mg/dL Desirable: >60 mg/dL LDL Cholesterol August 20, 145.0 mg/dL High 0-129 2020 07:01am VLDL Cholesterol August 20, 51.0 mg/dL High [...] fo r providers can be found at: [place].net.gov/media /374434/download Fact sheets fo r patients can be found at: [place].net.gov/CDP /416410/download Chief Complaint and Reason for Visit Encounter Admit Date Chief Complaint Reason for Visit Registered Clinical February 01, 2021 3:29pm epididymitis Hospital Discharge Instructions No known hospital discharge [...] Discharge/Departure Atte nding Date Date Provider Registered [facility] February 01, [facility] January 25, 2021 January 25, 2021 3:09pm [facility] 12:06pm [facility] January 19, 2021 January 19, 2021 5:03am [facility] December 23December 23, 2020 5:05am [facility] Department 2020 3:24am Departed [facility] December 07December 07, 2020 7:46am Mika dial [facility] 2020 7:45am [facility] 24September 24, 2020 Meri bowen [facility] 2020 11:32am 11:54am Kwaku [facility] Services Office Visit Dep[facility] September 17September 17, 2020 Brett hart [facility] Medicine 2020 2:47pm 3:46pm Maty her Office Visit Departed [facility] August 27August 27, 2020 Meri bowen [facility] 2019 2:26pm 2:27pm [facility] August 23August 23, 2020 Casper [facility]cer [facility] 2019 11:13am 11:14am [facility] August 20August 20, 2020 [facility] 4:17pm 4:18pm J[facility] June 29June 29, 2020 Meri bowen [facility] 2019 2:41pm 3:05pm Kwaku ovider Services Office Visit [facility] June 18June 18, 2020 Arianne hopkins [facility] 2019 12:10pm 12:11pm [facility] June 10June 11, 2020 Emergency [facility] Department 2019 11:46pm 1:27am [facility] June 04June 04, 2020 [facility] 2019 2:17pm 2:18pm [facility] April 23April 23, 2020 Adi [facility] 2019 8:43am 8:44am [facility] April 09, 2020 April 09, 2020 9:40 am Adi [facility] 8:23am Kwaku ovider Services [facility] April 08, 2020 April 08, 2020 10:10p m [facility] Department 9:44pm [facility] April 08, 2020 April 08, 2020 10:07a [facility] 10:06am [facility] April 08, 2020 April 08, 2020 12:39p m [facility] Department 10:03am [facility] Emergency April 08, 2020 April 08, [...]
--- OUTSIDE RECORDS SUMMARY | 2022-03-21 09:30 | XMS_ITS | Continuity of Care Document ---
:1975 Author Organization [facility] Address [address] [place] [address] Care Team Providers Name Role Phone Carolina [...] April 09, 2020 Negative 8:35am Urine Specific [place] April 09, 2020 1.025 (Manual) 8:35am POC [...] 11:01am Platelet Count August 20, 328 1000/mm3 [phone] 11:01am Mean Platelet Volume August 20, 10.9 [...] (Auto) August 20, 0.71 1000/mm3 0.0-0.8 2019 Eosinophils # (Auto) August 20, 0.16 1000/mm3 0.0-0.7 2019 Basophils # (Auto) August 20, 0.07 1000/mm3 0.0-0.1 2020 07: Absolute Immature August 20, 0.1 0-1 Granulocyte (auto 2020 07: Differential Method August 20, Automated 2020 07: Sodium Level August 20, 137 mmol/L [phone] 11:01am Potassium Level August 20, 4.3 mmol/L [...] ng/mL 0-0.034 Refere nce Range: <0.034 ng/mL 12: AMI Cut-off 0 .120 ng/mL The result [...] August 20, 145.0 mg/dL High 0-129 2019 11: VLDL Cholesterol August 20, 51.0 mg/dL High [...] In structions Gabapentin 300 MG ORAL THREE April 08, Active TIMES A 2019 DAY PRN For Pain Ibuprofen 600 MG ORAL April 08, Active TIMES A 2020 DAY PRN For Pain Levofloxacin 750 MG ORAL DAILY April 08, Discontin ued 2019 Encounters Encounter Facility Location Admit/Visit Discharge/Departure Atte nding Date Date Provider Departed [facility] August 20August 20, 2020 Jessica FOX, [facility] 2019 4:17pm 4:18pm Jj Departed [facility] June 29June 29, 2020 Meri bowen, [facility] 2019 2:41pm 3:05pm Kwaku her Services Office Visit Departed [facility] June 18June 18, 2020 Arianne kellie [facility] 2019 12:10pm 12:11pm , Medical [place] [facility] June 10June 11, 2020 [facility] Department 2019 11:46pm 1:27[facility] June 04June 04, 2020 [facility] 2019 2:17pm 2:18pm [facility] April 23April 23, 2020 Adi [facility] 2019 8:43am 8:44am [facility] April 09, 2020 April 09, 2020 9:40 am Adi [facility] 8:23am [facility] Services Office Visit [facility] Emergency April 08, 2020 April 08, 2020 10:10p m [facility] Department 9:44pm [facility] April 08, 2020 April 08, 2020 10:07a [facility] 10:06am [facility] [place] April 08, 2020 April 08, 2020 12:39p m [facility] Department 10:03am [facility] Emergency April 08, 2020 April 08, 2020 [...]
--- OUTSIDE RECORDS SUMMARY | 2022-03-21 09:30 | XMS_ITS | Continuity of Care Document ---
:[address] [facility] Address [address] [place] [address] Care Team Providers Name Role Phone Carolina [...] April 09, 2020 Negative 8:35am Urine Specific [place] April 09, 2020 1.025 (Manual) 8:35am POC [...] 11:01am Platelet Count August 20, 328 1000/mm3 [phone] 11:01am Mean Platelet Volume August 20, 10.9 [...] 07: Sodium Level August 20, 137 mmol/L [phone] 11:01am Potassium Level August 20, 4.3 mmol/L [...] Discharge/Departure Atte nding Date Date Provider Departed [facility] August 20August 20, 2020 Jessica FOX, [facility] 2019 4:17pm 4:18pm Jj Departed [facility] June 29June 29, 2020 Meri bowen, [facility] 2019 2:41pm 3:05pm Kwaku her Services Office Visit Departed [facility] June 18June 18, 2020 Arianne kellie [facility] 2019 12:10pm 12:11pm , Medical [place] [facility] June 10June 11, 2020 [facility] Department 2019 11:46pm 1:27[facility] June 04June 04, 2020 [facility] 2019 2:17pm 2:18pm [facility] April 23April 23, 2020 Adi [facility] 2019 8:43am 8:44am [facility] April 09, 2020 April 09, 2020 9:40 am Adi [facility] 8:23am [facility] Services Office Visit [facility] Emergency April 08, 2020 April 08, 2020 10:10p m Emergency [facility] Department 9:44pm [facility] April 08, 2020 April 08, 2020 10:07a [facility] 10:06am [facility] [place] April 08, 2020 April 08, 2020 12:39p m [facility] Department 10:03am [facility] Emergency April 08, 2020 April [...]
--- OUTSIDE RECORDS SUMMARY | 2022-03-21 09:30 | XMS_ITS | Continuity of Care Document ---
:1975 Author Organization [facility] Address [address] [place] [address] Care Team Providers Name Role Phone Jj [...] ORAL TWICE A DAY 14 August 14, 2020 Discontinued Medications Medication Dose Units Route Sig Qty Days Start Date Discontin ued Status Date Levofloxacin 500 MG ORAL DAILY 10 August 30, Decem kenzie 31, Discontinued 2019 2019 Levofloxacin 750 MG ORAL DAILY April 08June 2 0, Discontinued 2019 2019 Problem List Active Problems Medical Problem Onset Date Status Epididymo-orchitis Active Otitis media Active Change in bowel function Active Morbid [...] r providers can be found at: fda.gov/media /487289/download Fact sheets fo r patients can be found at: fda.gov/media /012014/download Chief Complaint and Reason for Visit Encounter [...] Discharge/Departure Atte nding Date Date Provider Departed [facility] August 13August 14, 2021 [facility] Department 2020 11:02pm 1:34am Departed [facility] February 22, 2021 February 22, 2021 1:38pm [facility] Department 12:47pm Departed [facility] February 10, 2021 February 10, 2021 3:07pm Adi [facility] 2:44pm Kwaku her Services Office Visit Departed [facility] February 01, 2021 February 01, 2021 3:30pm [facility] 3:29pm [facility] January 25, 2021 January 25, 2021 3:09pm Fabiola staton [facility] Services 12:06pm [facility] January 19, 2021 January 19, 2021 5:03am Fabiola staton [facility] 5:02am [facility] December 23December 23, 2020 5:05am [facility] Department 2020 3:24am Departed [facility] December 07December 07, 2020 7:46am Mika dial [facility] 2020 7:45am Mel[facility] September 24September 24, 2020 Meri bowen [facility] 2020 11:32am 11:54am Kw[place]um[place] her Services Office Visit Departed [facility] September 17September 17, 2020 Brett hart [facility] Medicine 2020 2:47pm 3:46pm Maty hre [facility] August 27August 27, 2020 Meri bowenFormer[facility] 2019 2:26pm 2:27pm [facility] August 23August 23, 2020 Casper mercer JRFormerly [facility] 2019 11:13am 11:14am [facility] Departed [facility] August 20August 20, 2020 [facility] 4:17pm 4:18pm Jj Functional Status [...] 2021 1:30am Blood Pressure Diastolic 100 50-85 [facility] 2020 1:30am Body Mass Index 56.2 January 13, 2021 8:40 am
--- OUTSIDE RECORDS SUMMARY | 2022-03-21 09:30 | XMS_ITS | Continuity of Care Document ---
:1975 Author Organization [facility] Address [address] [place] [address] Care Team Providers Name Role Phone Jj [...] be found at: [facility].gov/MM Local Foods /115666/download Fact sheets fo r patients can be found at: iSell.com.gov/MM [employer] /496946/download Chief Complaint and Reason for Visit Encounter Admit Date Chief Complaint Reason for Visit Registered Emergency September 29, 2021 6:31pm ALL COVID [...] 22, Active EYE 2020 Cyclobenzaprine MG August Active 2020 Gabapentin MG August Active 2020 Meloxicam MG August Active 2020 Amoxicillin 875 MG ORAL TWICE August Discontinu ed A DAY 2020 Amoxicillin-Pot 1 TAB ORAL TWICE 29 September Active Clavulanate A DAY 2021 Encounters Encounter Facility Location Admit/Visit Discharge/Departure Atte nding Date Date Provider Registered [facility] Emergency September 29, [facility] Department 2021 6:31pm Departed [facility] September 15September 15, 2021 Maria Teresa [facility] 2021 1:43pm 1:44pm [facility] 08September 08, 2021 Casper mercer JR [facility] 2020 5:01pm 5:02pm [facility] Departed [facility] Emergency August 13August 14, 2021 Emergency [facility] Department 2020 11:02pm 1:34am Departed [facility] Emergency February 22, 2021 February 22, 2021 1:38pm [facility] Department 12:47pm Departed [facility] February 10, 2021 February 10, 2021 3:07pm Esenler, [facility] 2:44pm [facility] Services Office Visit Departed [facility] DI February 01, 2021 February 01, 2021 3:30pm [facility] 3:29pm [facility] January 25, 2021 January 25, 2021 3:09pm Fabiola staton Surgical [facility] Services 12:06pm Renoz Care Departed [facility] January 19, 2021 January 19, 2021 5:03am [facility] 5:02[facility] Renzo [facility] December 23December 23, 2020 5:05am [facility] Department 2020 3:24am Departed [facility] December 07December 07, 2020 7:46am [facility] 2020 7:45am Melody Functional Status Query Response [...] Comment Alcohol Use Yes September 29, 2021 8:38pm rare Smoking Status Current every day smoker September 29, 2021 8:38pm Substance Use Treatment No September 29, 2021 8:38pm Substance/Street Drug Use Yes September 29, 2021 8:38p m occasional alcohol intake frequency holidays/special September 29, 2021 8:38p m occasions only substance use type marijuana September 29, 2021 8:38pm Query Response Start Date Stop Date Smoking [...] 2021 1:30am Blood Pressure Diastolic 100 50-85 [facility] 2020 1:30am Body Mass Index 56.2 January 13, 2021 8:40 am
--- OUTSIDE RECORDS SUMMARY | 2022-03-21 09:30 | XMS_ITS | Continuity of Care Document ---
:1975 Author Organization [facility] Address [address] [place] [address] Care Team Providers Name Role Phone Jj [...] 8:35am Urine Specific April 09, 2020 1.025 [place] (Manual) 8:35am POC Urine RBC April 09, [...] fo r providers can be found at: Mendor.gov/MovieLaLa /568334/download Fact sheets fo r patients can be found at: Mendor.gov/MovieLaLa /523129/download Chief Complaint and Reason for Visit Encounter [...] Discharge/Departure Atte nding Date Date Provider Departed [facility] February 22, 2021 February 22, 2021 1:38pm Emergency [facility] Department 12:47pm Departed [facility] February 10, 2021 February 10, 2021 3:07pm Adi [facility] 2:44pm [facility] Services Office Visit Departed [facility] DI February 01, 2021 February 01, 2021 3:30pm [facility] 3:29pm [facility] January 25, 2021 January 25, 2021 3:09pm Fabiola staton Surgical [facility] Services 12:06pm [facility] Departed [facility] January 19, 2021 January 19, 2021 5:03am [facility] 5:02am Renzo Departed [facility] Emergency December 23, December 23, 2020 5:05am [facility] Department 2020 3:24am Departed [facility] Curbside December 07, December 07, 2020 7:46am [facility] 2020 7:45am Melody Departed [facility] September 24, September 24, 2020 Meri bowen, [facility] 2020 11:32am 11:54am Kwaku ovider Services Office Visit Departed [facility] September 17, September 17, 2020 Brett hart [facility] Medicine 2020 2:47pm 3:46pm Maty ovider Office Visit Departed [facility] August 27August 27, 2020 Meri bowen [facility] 2019 2:26pm 2:27pm [facility] August 23August 23, 2020 Casper mercer [facility]RMission [facility] 2019 11:13am 11:14am [facility] Departed [facility] August 20August 20, 2020 [facility] 4:17pm 4:18pm J[facility] June 29June 29, 2020 Meri bowen, [facility] 2019 2:41pm 3:05pm Kwaku ovider Services Office Visit Departed [facility] June 18June 18, 2020 Arianne hopkins [facility] 2019 12:10pm 12:11pm [facility] June 10June 11, 2020 Emergency [facility] Department 2019 11:46pm 1:27[facility] June 04June 04, 2020 [facility] 2019 2:17pm 2:18pm [facility] April 23April 23, 2020 Adi [facility] 2019 8:43am 8:44am [facility] Departed [facility] April 09, 2020 April 09, 2020 9:40 am Adi [facility] 8:23am Kwaku ovider Services Office Visit Departed [facility] Emergency April 08, 2020 April 08, 2020 10:10p m Emergency [facility] Department 9:44pm Departed [facility] April 08, 2020 April 08, 2020 10:07a [facility]y [facility] 10:06am [facility] Departed [facility] Emergency April 08, [...] Care Instructions High Blood Pressure (DC) Conjunctivitis ([facility]) ED COVID 19 General Instructions- decrease [...]
--- OUTSIDE RECORDS SUMMARY | 2022-03-21 09:30 | XMS_ITS | Continuity of Care Document ---
:1975 Author Organization Address [address] [place] [address] Care Team Providers Name Role Phone Jj Lopez JR Primary Care Physician Jj Lopez JR Attending Physician Allergies, Adverse Reactions, Alerts Allergen [...] Inactive Hypertension Inactive Procedures Procedure Date Status CT Chest w/o Contrast September 08, 2021 [...] r providers can be found at: fda.gov/media /892747/download Fact sheets fo r patients can be found at: [facility].gov/media /518227/download Chief Complaint and Reason for Visit Encounter Admit Date Chief Complaint Reason for Visit Departed Clinical September 08, 2021 5:01pm [facility] Discharge Instructions No known hospital discharge [...] Date Date Provider Departed [facility] September 08September 08, 2021 Casper mercer JR [facility] 2020 5:01pm 5:02pm [facility] Departed [facility] Emergency August 13August 14, 2021 Emergency Medical Center Department 2020 11:02pm 1:34am Departed [facility] Emergency February 22, 2021 February 22, 2021 1:38pm Emergency [facility] Department 12:47pm Departed [facility] February 10, 2021 February 10, 2021 3:07pm Adi [facility] 2:44pm [facility] Services Office Visit Departed [facility] DI February 01, 2021 February 01, 2021 3:30pm Gigi velez [facility] 3:29pm [facility] January 25, 2021 January 25, 2021 3:09pm Fabiola staton [facility] Services 12:06pm Renzo [facility] January 19, 2021 January 19, 2021 5:03am Fabiola staton [facility] 5:02am Renzo [facility] December 23December 23, 2020 5:05am [facility] Department 2020 3:24am [facility] December 07December 07, 2020 7:46am Mika jayro [facility] 2020 7:45am Melody Departed [facility] September 24, September 24, 2020 Meri bowen [facility] 2020 11:32am 11:54am Kwaku her Services Office Visit Departed [facility] September 17, September 17, 2020 Brett [...] 2021 1:30am Blood Pressure Diastolic 100 50-85 [facility] 2020 1:30am Body Mass Index 56.2 January 13, 2021 8:40 am
--- OUTSIDE RECORDS SUMMARY | 2022-03-21 09:30 | XMS_ITS | Continuity of Care Document ---
:1975 Author Organization [facility] Address [address] [place] [address] Care Team Providers Name Role Phone Carolina [...] 8:35am Urine Specific April 09, 2020 1.025 [place] (Manual) 8:35am POC Urine RBC April 09, [...] have a copy on file [facility] at [facility]? No O ct2018 1:44pm Does patient have an Advanced Directive? No June 25, 2019 1:44pm Pt has a Living Will? No June 25, 2019 1 :44pm Pt has a Power of Crab Backer? No June 25, 2019 1:44pm Chief Complaint [...] Discharge/Departure Atte nding Date Date Provider Departed [facility] April 23April 23, [address] [facility] 2019 8:43am 8:44am [facility] April 09, 2020 April 09, 2020 9:40 am Adi [facility] 8:23am [facility] Office Visit Departed [facility] Emergency April 08, 2020 April 08, 2020 10:10p m [facility] Department 9:44pm Departed [facility] DI April 08, 2020 April 08, 2020 10:07a m [facility] 10:06am [facility] Departed [facility] Emergency April 08, [...] Libertarian Id MEDICAID OF Medicaid YOLANDA FANG [id number] Self/Same as YOLANDA FANG [id number] UTAH Patient SELF PAY Personal Plan of Care [...]
--- OUTSIDE RECORDS SUMMARY | 2022-03-21 09:30 | XMS_ITS | Continuity of Care Document ---
:1975 Author Organization [facility] Address [address] [place] [address] Care Team Providers Name Role Phone Carolina [...] April 09, 2020 Negative 8:35am Urine Specific [place] April 09, 2020 1.025 (Manual) 8:35am POC [...] nding Date Date Provider Departed [facility] June 18June 18, 2020 Arianne hopkins [facility] 2019 12:10pm 12:11pm [facility] Emergency June 10June 11, 2020 [facility] Department 2019 11:46pm 1:[facility]June 04, 2020 [facility] 2019 2:17pm 2:18pm [facility] April 23April 23, 2020 Adi [facility] 2019 8:43am 8:44am [facility] April 09, 2020 April 09, 2020 9:40 am Adi [facility] 8:23am [facility] Services Office Visit Departed [facility] Emergency April 08, 2020 April 08, 2020 10:10p m [facility] Department 9:44pm Departed [facility] DI April 08, 2020 April 08, 2020 10:07a m [facility] 10[facility]06[facility] April 08, 2020 April 08, 2020 12:39p m [facility] Department 10:03am Departed [facility] Emergency April 08, 2020 April [...]
--- OUTSIDE RECORDS SUMMARY | 2022-03-21 09:30 | XMS_ITS | Continuity of Care Document ---
:[address] [facility] Address [address] [place] [address] Care Team Providers Name Role Phone Carolina [...] April 09, 2020 Negative 8:35am Urine Specific [place] April 09, 2020 1.025 (Manual) 8:35am POC [...] 11:01am Platelet Count August 20, 328 1000/mm3 [phone] 11:01am Mean Platelet Volume August 20, 10.9 [...] 07: Sodium Level August 20, 137 mmol/L [phone] 11:01am Potassium Level August 20, 4.3 mmol/L [...] Discharge/Departure Atte nding Date Date Provider Departed [facility] August 20August 20, 2020 Jessica FOX, [facility] 2019 4:17pm 4:18pm Jj Departed [facility] June 29June 29, 2020 Meri bowen, [facility] 2019 2:41pm 3:05pm Kwaku her Services Office Visit Departed [facility] June 18June 18, [address] [facility] 2019 12:10pm 12:11pm , Medical [place] [facility] June 10June 11, 2020 [facility] Department 2019 11:46pm 1:27[facility] June 04June 04, 2020 [facility] 2019 2:17pm 2:18pm [facility] April 23April 23, [address] [facility] 2019 8:43am 8:44am [facility] April 09, 2020 April 09, 2020 9:40 am Adi [facility] 8:23am [facility] Services Office Visit [facility] Emergency April 08, 2020 April 08, 2020 10:10p m [facility] Department 9:44pm [facility] April 08, 2020 April 08, 2020 10:07a [facility] 10:06am [facility] April 08, 2020 April 08, 2020 12:39p m [facility] Department 10:03am [facility] Emergency April 08, 2020 April 08, [...]
--- OUTSIDE RECORDS SUMMARY | 2022-03-21 09:30 | XMS_ITS | Continuity of Care Document ---
:1975 Author Organization [facility] Address [address] [place] [address] Care Team Providers Name Role Phone Carolina [...] April 09, 2020 Negative 8:35am Urine Specific [place] April 09, 2020 1.025 (Manual) 8:35am POC [...] 11:01am Platelet Count August 20, 328 1000/mm3 [phone] 11:01am Mean Platelet Volume August 20, 10.9 [...] August 20, 0.1 0-1 Granulocyte (auto 2019 Differential Method August 20, Automated 2019 Sodium Level August 20, 137 mmol/L [phone] 11:01am Potassium Level August 20, 4.3 mmol/L 3.6-5.0 2019 Chloride Level August 20, 105 mmol/L 98-107 2019 Carbon Dioxide Level August 20, 26 mmol/L 22-30 2019 Anion Gap August 20, 6 Low 7-16 2019 Blood Urea Nitrogen August 20, 12 mg/dL 8-2019 Creatinine August 20, 0.95 mg/dL 0.66-1.25 2019 Glomerular Filtration August 20, > 60 mL/min [...] 20, 33 mg/dL Low 40-60 The [facility] Cholesterol Education Program (NCEP) has set the [...] Discharge/Departure Atte nding Date Date Provider Departed [facility] August 20August 20, 2020 Jessica FOX, [facility] 2019 4:17pm 4:18pm Jj Departed [facility] June 29June 29, 2020 Meri bowen [facility] 2019 2:41pm 3:05pm Kwaku her Services Office Visit Departed [facility] June 18June 18, 2020 [facility] 2020 12:10pm 12:11pm [facility] Departed [facility] Emergency June 10June 11, 2020 [facility] Department 2019 11:46pm 1:27am [facility] June 04June 04, 2020 [facility] 2019 2:17pm 2:18pm [facility] April 23April 23, [address] [facility] 2019 8:43am 8:44am [facility] April 09, 2020 April 09, 2020 9:40 am Adi [facility] 8:23am [facility] Services [facility] April 08, 2020 April 08, 2020 10:10p m [facility] Department 9:44pm [facility] April 08, 2020 April 08, 2020 10:07a m [facility] 10:06am [facility] Emergency April 08, 2020 April 08, 2020 12:39p m [facility] Department 10:03am [facility] Emergency April 08, 2020 April [...] June 29, 2020 2:47pm Respiration 18 RPM 12-June 29, 2020 2:47pm Pulse Oximetry 99 % 95-100 June 11, 2020 1:27am Blood Pressure Systolic 118 100-140 June 29, 2020 2:47pm Blood Pressure Diastolic 88 50-85 June 29, 2020 2:47pm Body Mass Index 53.5 April 09, 2020 8: 30am
--- OUTSIDE RECORDS SUMMARY | 2022-03-21 09:30 | XMS_ITS | Continuity of Care Document ---
:1975 Author Organization [facility] Address [address] [place] [address] Support Name Relationship Address Phone Jj Lopez JR Primary Care Provider Alicia [address]UENTES [address] [place] [address] Jj Lopez JR Referring Provider [place] F[address] [place] [address] Mackenzie Suarez Attending Provider [facility] [address] [place] [address] Allergies, Adverse Reactions, Alerts Allergen Type Severity [...] r providers can be found at: fda.gov/media /127596/download Fact sheets fo r patients can be found at: fda.gov/media /524517/download Chief Complaint and Reason for Visit Encounter [...] Discharge/Departure Atte nding Date Date Provider Registered [facility] DI November 11, 2021 [facility] 10:48am [facility] Dep[facility]ed [facility] October 11October 11, 2021 Darrick concepcion [facility] 2021 11:31am 12:03pm Mackenzie [facility] Office Visit Departed [facility] Emergency September 29September 29, 2021 [facility] Department 2021 6:31pm 9:12pm Departed [facility] DI September 15September 15, 2021 [facility] 2021 1:43pm 1:44pm [facility] September 08September 08, 2021 Casper [facility]cer [facility] 2020 5:01pm 5:02pm [facility] Departed [facility] Emergency August 13August 14, 2021 [facility] Department 2020 11:02pm 1:34am Departed [facility] Emergency February 22, 2021 February 22, 2021 1:38pm [facility] Department 12:47pm Dep[facility]ed [facility] February 10, 2021 February 10, 2021 3:07pm Adi [facility] 2:44pm [facility] Services [facility] February 01, 2021 February 01, 2021 3:30pm [facility] 3:29pm [facility] January 25, 2021 January 25, 2021 3:09pm [facility] 12:06pm [facility] January 19, 2021 January 19, 2021 5:03am [facility] 5:02am [facility] December 23December 23, 2020 5:05am [facility] Department 2020 3:24am [facility] December 07December 07, 2020 7:46am Mika [facility]Henrico [facility] 2020 7:45am Melody Encounter Diagnosis Onset Date [...]
--- OUTSIDE RECORDS SUMMARY | 2022-03-21 09:30 | XMS_ITS | Continuity of Care Document ---
:1975 Author Organization [facility] Address [address] [place] [address] Care Team Providers Name Role Phone Jj [...] 8:35am Urine Specific April 09, 2020 1.025 [place] (Manual) 8:35am POC Urine RBC April 09, [...] fo r providers can be found at: Acquaintable.gov/[employer] /916690/download Fact sheets fo r patients can be found at: Acquaintable.gov/[employer] /640921/download Chief Complaint and Reason for Visit Encounter [...] Date Date Provider Departed [facility] Emergency February 22, 2021 February 22, 2021 1:38pm [facility] Department 12:47pm Departed [facility] February 10, 2021 February 10, 2021 3:07pm Adi [facility] 2:44pm [facility] Services Office Visit Departed [facility] DI February 01, 2021 February 01, 2021 3:30pm [facility] 3:29pm [facility] January 25, 2021 January 25, 2021 3:09pm Fabiola staton [facility] Services 12:06pm [facility] Departed [facility] January 19, 2021 January 19, 2021 5:03am [facility] 5:02am Renzo Departed [facility] Emergency December 23, December 23, 2020 5:05am [facility] Department 2020 3:24am Departed [facility] Curbside December 07, December 07, 2020 7:46am [facility] 2020 7:45am Melody Departed [facility] September 24, September 24, 2020 Meri bowen, [facility] 2020 11:32am 11:54am Kwaku ovider Services Office Visit Departed [facility] September 17, September 17, 2020 Brett hart [facility] 2020 2:47pm 3:46pm Maty ovider Office Visit Departed [facility] August 27August 27, 2020 Meri bowen [facility] 2019 2:26pm 2:27pm [facility] August 23August 23, 2020 Casper mercer JRHca [facility] 2019 11:13am 11:14am [facility] Departed [facility] August 20August 20, 2020 [facility] 2019 4:17pm 4:18pm Jj [facility] June 29June 29, 2020 Meri bowen, [facility] 2019 2:41pm 3:05pm Kwaku ovider Services Office Visit Departed [facility] June 18June 18, 2020 Arianne hopkins [facility] 2019 12:10pm 12:11pm [facility] June 10June 11, 2020 [facility] Department 2019 11:46pm 1:27am [facility] June 04June 04, 2020 Gigi [facility]lezH[facility] 2019 2:17pm 2:18pm [facility] April 23April 23, 2020 Adi [facility] 2019 8:43am 8:44am [facility] Departed [facility] April 09, 2020 April 09, 2020 9:40 am Adi [facility] 8:23am Kwaku ovider Services Office Visit Departed [facility] Emergency April 08, 2020 April 08, 2020 10:10p m [facility] Department 9:44pm Departed [facility] April 08, 2020 April 08, 2020 10:07a duy AguirreH[facility] 10:06am [facility] Departed [facility] Emergency April 08, 2020 April 08, 2020 12:39p m [facility] Department 10:03am Departed [facility] Emergency April 08, 2020 April 08, [...] Care Instructions High Blood Pressure (DC) Conjunctivitis ([facility]) ED COVID 19 General Instructions- decrease [...]
--- OUTSIDE RECORDS SUMMARY | 2022-03-21 09:30 | XMS_ITS | Continuity of Care Document ---
:1975 Author Organization [facility] Address [address] [place] [address] Support Name Relationship Address Phone Kwaku Joshi Attending Provider [facility] [address] [place] [address] Kwaku Joshi Referring Provider [facility] [address] [facility], [place] [address] Jj Lopez JR Primary Care Provider Alicia FUENTES Unavaila ble [address] [place] [address] Allergies, Adverse Reactions, Alerts Allergen Type Severity [...] April 09, 2020 Negative 8:35am Urine Specific [place] April 09, 2020 1.025 (Manual) 8:35am POC [...] 11:01am Platelet Count August 20, 328 1000/mm3 [phone] 11:01am Mean Platelet Volume August 20, 10.9 [...] 11:01am Sodium Level August 20, 137 mmol/L [phone] 11:01am Potassium Level August 20, 4.3 mmol/L [...] Atte nding Date Date Provider Departed [facility] September 24, September 24, 2020 Meri bowen [facility] 2020 11:32am 11:54am Kwaku ovider Services Office Visit Dep[facility]ed [facility] September 17, September 17, 2020 Brett hart [facility] 2020 2:47pm 3:46pm Maty her Office Visit Departed [facility] August 27August 27, 2020 Meri bowen [facility] 2019 2:26pm 2:27pm [facility] August 23August 23, 2020 [facility] 2019 11:13am 11:14am [facility] Departed [facility] August 20August 20, 2020 [facility] 2019 4:17pm 4:18pm [facility] Departed [facility] June 29June 29, 2020 Meri bowen [facility] 2019 2:41pm 3:05pm Kwaku ovider Services Office Visit Departed [facility] June 18June 18, 2020 [facility] Servicespardeep hopkins [facility] 2019 12:10pm 12:11pm [facility] June 10June 11, 2020 [facility] Department 2019 11:46pm 1:27am [facility] June 04June 04, 2020 [facility] 2019 2:17pm 2:18pm [facility] April 23April 23, 2020 Adi [facility] 2019 8:43am 8:44am [facility] Departed [facility] April 09, 2020 April 09, 2020 9:40 am Adi [facility] 8:23am Kwaku ovider Services Office Visit Departed [facility] Emergency April 08, 2020 April 08, 2020 10:10p m [facility] Department 9:44pm [facility] April 08, 2020 April 08, 2020 10:07a [facility]y [facility] 10:06am [facility] Dep[facility]ed [facility] Emergency April 08, [...]
--- OUTSIDE RECORDS SUMMARY | 2022-03-21 09:30 | XMS_ITS | Continuity of Care Document ---
:1975 Author Organization [facility] Address [address] [place] [address] Support Name Relationship Address Phone Jj Lopze JR Primary Care Provider Alicia FUENTES [address] [place] [address] Jj Lopez JR Referring Provider Thidaisatu F[address] [place] [address] Mackenzie Suarez Attending Provider [facility] [address] [place] [address] Allergies, Adverse Reactions, Alerts Allergen Type Severity [...] r providers can be found at: fda.gov/media /523705/download Fact sheets fo r patients can be found at: fda.gov/[employer] /991478/download Chief Complaint and Reason for Visit Encounter [...] MG August Active 2020 Meloxicam MG August Amoxicillin 875 MG ORAL TWICE August Discontinu ed A DAY 2020 Amoxicillin-Pot 1 TAB ORAL TWICE 29 September Active Clavulanate A DAY 2021 Encounters Encounter Facility Location Admit/Visit Discharge/Departure Atte nding Date Date Provider Departed [facility] November 11, 2021 November 11, 2021 10:49a m [facility] 10:48am [facility] Departed [facility] October 11October 11, 2021 Darrick concepcion [facility] 2021 11:31am 12:03pm [facility] agustina Office Visit Departed [facility] Emergency September 29September 29, 2021 [facility] Department 2021 6:31pm 9:12pm Departed [facility] DI September 15September 15, 2021 Maria Teresa [facility] 2021 1:43pm 1:44pm [facility] September 08September 08, 2021 [facility] 2020 5:01pm 5:02pm [facility] Departed [facility] Emergency August 13August 14, 2021 [facility] Department 2020 11:02pm 1:34am [facility] February 22, 2021 February 22, 2021 1:38pm [facility] Department 12:47pm Departed [facility] February 10, 2021 February 10, 2021 3:07pm Adi [facility] 2:44pm [facility] Services [facility] February 01, 2021 February 01, 2021 3:30pm [facility] 3:29pm [facility] January 25, 2021 January 25, 2021 3:09pm [facility] 12:06pm Renzo Care [facility] January 19, 2021 January 19, 2021 5:03am [facility] 5:02am Renzo [facility] December 23December 23, 2020 5:05am [facility] Department 2020 3:24am [facility] December 07December 07, 2020 7:46am Mika [facility]Children[facility] 2020 7:45am Melody Encounter Diagnosis Onset Date [...]
--- OUTSIDE RECORDS SUMMARY | 2022-03-21 09:30 | XMS_ITS | Continuity of Care Document ---
:1975 Author Organization [facility] Address [address] [place] [address] Care Team Providers Name Role Phone Jj [...] 22 021 Active Cyclobenzaprine MG August 13, 2020 Gabapentin MG August 13, A ctive 2020 Meloxicam MG August 13, Ac tive 2020 Amoxicillin 875 MG ORAL TWICE A DAY 14 August 142020 Discontinued Medications Medication Dose Units Route Sig [...] r providers can be found at: fda.gov/media /911504/download Fact sheets fo r patients can be found at: fda.gov/media /156444/download Chief Complaint and Reason for Visit Encounter [...] Discharge/Departure Atte nding Date Date Provider Departed [facility] Emergency August 13August 14, 2021 [facility] Department 2020 11:02pm 1:34am Departed [facility] Emergency February 22, 2021 February 22, 2021 1:38pm [facility] Department 12:47pm Departed [facility] February 10, 2021 February 10, 2021 3:07pm Adi [facility] 2:44pm Kwaku her Services Office Visit Departed [facility] February 01, 2021 February 01, 2021 3:30pm [facility] 3:29[facility] January 25, 2021 January 25, 2021 3:09pm Fabiola staton [facility] Services 12:06pm [facility] January 19, 2021 January 19, 2021 5:03am Fabiola staton [facility] 5:02am Renzo [facility] December 23December 23, 2020 5:05am [facility] Department 2020 3:24am Dep[facility]ed [facility] December 07December 07, 2020 7:46am Mika dial [facility] 2020 7:45am Mel[facility] September 24September 24, 2020 Meri bowen [facility] 2020 11:32am 11:54am Kw[place]umet her Services Office Visit Dep[facility]ed [facility] September 17September 17, 2020 Brett hart [facility] 2020 2:47pm 3:46pm Maty her [facility] August 27August 27, 2020 [facility] 2019 2:26pm 2:27pm [facility] August 23August 23, 2020 Casper mercer [facility] 2019 11:13am 11:14am [facility] Departed [facility] August 20August 20, 2020 [facility] 2019 4:17pm 4:18pm Jj Functional Status [...] 2021 1:30am Blood Pressure Diastolic 100 50-85 [facility] 2020 1:30am Body Mass Index 56.2 January 13, 2021 8:40 am
--- OUTSIDE RECORDS SUMMARY | 2022-03-21 09:30 | XMS_ITS | Continuity of Care Document ---
:1975 Author Organization [facility] Address [address] [place] [address] Care Team Providers Name Role Phone Jj [...] CT Chest w/o Contrast September 08, 2021 active US Testicles (Scrotal) February 01, 2021 completed [...] r providers can be found at: fda.gov/media /686528/download Fact sheets fo r patients can be found at: .gov/media /462520/download Chief Complaint and Reason for Visit Encounter [...] Date Date Provider Departed [facility] September 08September 08, 2021 Casper mercer JR [facility] 2020 5:01pm 5:02pm [facility] Departed [facility] Emergency August 13August 14, 2021 [facility] Department 2020 11:02pm 1:34am Departed [facility] Emergency February 22, 2021 February 22, 2021 1:38pm [facility] Department 12:47pm Departed [facility] February 10, 2021 February 10, 2021 3:07pm Adi [facility] 2:44pm [facility] Services Office Visit Departed [facility] DI February 01, 2021 February 01, 2021 3:30pm Gigi velez [facility] 3:29pm [facility] January 25, 2021 January 25, 2021 3:09pm Fabiola staton Surgical [facility] Services 12:06pm Renzo [facility] January 19, 2021 January 19, 2021 5:03am Fabiola staton [facility] 5:02am [facility] December 23December 23, 2020 5:05am [facility] Department 2020 3:24am Departed [facility] [place] December 07December 07, 2020 7:46am Mika jayro [facility] 2020 7:45am Melody Departed [facility] September 24, September 24, 2020 Meri bowen [facility] 2020 11:32am 11:54am Kwaku her Services Office Visit Departed [facility] September 17, September 17, 2020 Brett [...] 2021 1:30am Blood Pressure Diastolic 100 50-85 [facility] 2020 1:30am Body Mass Index 56.2 January 13, 2021 8:40 am
--- OUTSIDE RECORDS SUMMARY | 2022-03-21 09:30 | XMS_ITS | Continuity of Care Document ---
:[address] [facility] Address [address] [place] [address] Care Team Providers Name Role Phone Jj [...] 8:35am Urine Specific April 09, 2020 1.025 [place] (Manual) 8:35am POC Urine RBC April 09, [...] fo r providers can be found at: Moxtra.gov/media /599248/download Fact sheets fo r patients can be found at: Moxtra.gov/[employer] /929181/download Chief Complaint and Reason for Visit Encounter Admit Date Chief Complaint Reason for Visit Departed Clinical February 01, 2021 3:29pm epididymitis Hospital [...] Date Date Provider Departed [facility] February 01, 2021 February 01, 2021 3:30pm [facility] 3:29[facility] January 25, 2021 January 25, 2021 3:09pm [facility] 12:06pm [facility] January 19, 2021 January 19, 2021 5:03am [facility] 5:[facility] December 23December 23, 2020 5:05am [facility] Department 2020 3:24am Departed [facility] December 07December 07, 2020 7:46am Mika dial [facility] 2020 7:45am Melody [facility] September 24September 24, 2020 Meri bowen [facility] 2020 11:32am 11:54am [facility] Services Office Visit [facility] September 17September 17, 2020 Brett hart [facility] 2020 2:47pm 3:46pm Maty ovider Office Visit Departed [facility] August 27August 27, 2020 Meri bowen [facility] 2019 2:26pm 2:27pm [facility] August 23August 23, 2020 [facility] 2019 11:13am 11:14am [facility] August 20August 20, 2020 [facility] 4[facility]17[facility] 4:18pm [facility] June 29June 29, 2020 Meri bowen [facility] 2019 2:41pm 3:05pm Kwaku ovider Services Office Visit Departed [facility] June 18, June 18, 2020 Arianne hopkins [facility] 2019 12:10pm 12:11pm [facility] June 10June 11, 2020 [facility] Department 2019 11:46pm 1:27am [facility] June 04June 04, 2020 [facility] 2019 2:17pm 2:18pm [facility] April 23April 23, 2020 Adi [facility] 2019 8:43am 8:44am [facility] April 09, 2020 April 09, 2020 9:40 am Adi [facility] 8:23am Kwaku ovider Services [facility] April 08, 2020 April 08, 2020 10:10p m [facility] Department 9:44pm [facility] April 08, 2020 April 08, 2020 10:07a [facility] 10:06am [facility] April 08, 2020 April 08, 2020 12:39p m [facility] Department 10:03am [facility] April 08, 2020 April 08, [...]
--- OUTSIDE RECORDS SUMMARY | 2022-03-21 09:30 | XMS_ITS | Continuity of Care Document ---
:1975 Author Organization [facility] Address [address] [place] [address] Care Team Providers Name Role Phone Carolina [...] 8:35am Urine Specific April 09, 2020 1.025 [place] (Manual) 8:35am POC Urine RBC April 09, [...] have a copy on file here at [facility]? No O ct2018 1:44pm Does patient have an Advanced Directive? No June 25, 2019 1:44pm Pt has a Living Will? No June 25, 2019 1 :44pm Pt has a Power of Cork Compounder? No June 25, 2019 1:44pm Chief Complaint [...] [facility] April 23April 23, 2020 Adi [facility] 2019 8:43am 8:44am [facility] Departed [facility] April 09, 2020 April 09, 2020 9:40 am Adi [facility] 8:23am [facility] Services Office Visit Departed [facility] Emergency April 08, 2020 April 08, 2020 10:10p m [facility] Department 9:44pm Departed [facility] DI April 08, 2020 April 08, 2020 10:07a [facility] 10:06[facility] Departed [facility] Emergency April 08, 2020 April 08, 2020 12:39p m [facility] 10:03am Departed [facility] Emergency April 08, 2020 April 08, 2020 1:22am [facility] Department 12:35am Departed [facility] Emergency June 25June 25, 2019 [facility] Department 2018 1:09pm 3:45pm Functional Status Query Response Date Recorded Comment Comprehension Ability Understands Concepts April 08, 2020 12:50am Query Response Date Recorded Comment Living Situation Home April 08, 2020 9:51pm With Spouse Immunizations No known immunizations. Payers Payer Name Policy Type Covered Covered Relationship Subscriber Sub scriber Id Democrat Democrat Id MEDICAID OF Medicaid YOLANDA FANG [id number] Self/Same as YOLANDA FANG [id number] [place] Patient SELF PAY Personal Plan of Care [...]
--- OUTSIDE RECORDS SUMMARY | 2022-03-21 09:30 | XMS_ITS | Continuity of Care Document ---
:1975 Author Organization [facility] Address [address] [place] [address] Care Team Providers Name Role Phone Carolina [...] Active Problems Medical Problem Onset Date Status Heart palpitations Active Epididymo-orchitis Active Inactive/Resolved Problems Medical Problem Onset Date Status Testicular abscess Inactive Vaso-vagal reaction Inactive Left epididymitis Inactive Procedures Procedure Date Status INTERFACE ELECTROCARDIOGRAM June 10, 2020 completed US [...] April 09, 2020 Negative 8:35am Urine Specific [place] April 09, 2020 1.025 (Manual) 8:35am POC [...] have a copy on file here at [facility]? No O ct2018 1:44pm Does patient have an Advanced Directive? No June 25, 2019 1:44pm Pt has a Living Will? No June 25, 2019 1 :44pm Pt has a Power of Field Enumerator? No June 25, 2019 1:44pm Chief Complaint and Reason for Visit Encounter Admit Date Chief Complaint Reason for Visit Departed Emergency June 10, 2020 11:46pm Chest Pain Hospital Discharge Instructions Additional Discharge Instructions You were seen in the emergency department today for evaluation of fast heart rat e, almost passing out. You need to follow-up with y our primary care provider. Call tomorrow to s chedule an appointment for soon as possible. Return to the emergency department immediately if yo u develop any passing out, fever, cough, or for an y other concerning or worsening symptoms at all. Instruction/Education Provided Palpitations (OR) COVID 19 General Instruction s- decrease the spread of coronavirus ([facility]) Hospital Discharge Medications [...] Date Date Provider Departed [facility] Emergency June 10June 11, 2020 [facility] Department 2019 11:46pm 1:27am Departed [facility] June 04June 04, 2020 [facility] 2:17pm 2:18pm [facility] Departed [facility] April 23April 23, 2020 Adi [facility] 2019 8:43am 8:44am [facility] Departed [facility] April 09, 2020 April 09, 2020 9:40 am Physician [facility] 8:23am [facility] Services Office Visit Departed [facility] Emergency April 08, 2020 April 08, 2020 10:10p m [facility] Department 9:44pm Departed [facility] DI April 08, 2020 April 08, 2020 10:07a [facility] 10:06am [facility] Departed [facility] Emergency April 08, [...] Democrat Id MEDICAID OF Medicaid YOLANDA FANG [id number] Self/Same as YOLANDA FANG [id number] [place] Patient SELF PAY Personal Plan of Care Instructions Palpitations (DC) COVID [...]
--- OUTSIDE RECORDS SUMMARY | 2022-03-21 09:30 | XMS_ITS | Continuity of Care Document ---
:1975 Author Organization [facility] Address [address] [place] [address] Care Team Providers Name Role Phone Carolina [...] 8:35am Urine Specific April 09, 2020 1.025 [place] (Manual) 8:35am POC Urine RBC April 09, [...] have a copy on file here at [facility]? No O ct2018 1:44pm Does patient have an Advanced Directive? No June 25, 2019 1:44pm Pt has a Living Will? No June 25, 2019 1 :44pm Pt has a Power of Commercial Technician? No June 25, 2019 1:44pm Chief [...] Departed [facility] April 23April 23, 2020 Adi [facility] 2019 8:43am 8:44am [facility] Departed [facility] April 09, 2020 April 09, 2020 9:40 am Adi [facility] 8:23am [facility] Services Office Visit Departed [facility] Emergency April 08, 2020 April 08, 2020 10:10p m [facility] Department 9:44pm Departed [facility] DI April 08, 2020 April 08, 2020 10:07a m [facility] 10:06am [facility] Departed [facility] Emergency April 08, 2020 April 08, 2020 12:39p m [facility] Department 10:03am Departed [facility] Emergency April 08, 2020 April 08, 2020 1:22am [facility] Department 12:35am Departed [facility] Emergency June 25June 25, 2019 [...] Party Green Party Id MEDICAID OF Medicaid YOLANDA FANG [id number] Self/Same as YOLANDA FANG [id number] [place] [...]
--- OUTSIDE RECORDS SUMMARY | 2022-03-21 09:31 | XMS_ITS | Continuity of Care Document ---
:1975 Author Organization [facility] Address [address] [place] [address] Care Team Providers Name Role Phone Jj [...] be found at: [facility].gov/media /566461/download Fact sheets fo r patients can be found at: [facility].gov/CareCloud /206082/download Chief Complaint and Reason for Visit Encounter Admit Date Chief Complaint Reason for Visit Registered Clinical November 11, 2021 10:48am E04.2 - [...] Discharge/Departure Atte nding Date Date Provider Registered [facility] November 11, 2021 Erick [facility] 10:48am [facility] Departed [facility] October 11October 11, 2021 Darrick concepcion [facility] 2021 11:31am 12:03pm [facility] Office Visit Departed [facility] Emergency September 29September 29, 2021 [facility] Department 2021 6:31pm 9:12pm Departed [facility] DI September 15September 15, 2021 Maria Teresa [facility] 2021 1:43pm 1:44pm [facility] September 08September 08, 2021 Casper mercer JR [facility] 2020 5:01pm 5:02pm [facility] Departed [facility] Emergency August 13August 14, 2021 [facility] Department 2020 11:02pm 1:34am Departed [facility] February 22, 2021 February 22, 2021 1:38pm [facility] Department 12:47pm Departed [facility] February 10, 2021 February 10, 2021 3:07pm Adi [facility] 2:44pm [facility] Services Office Visit Departed [facility] February 01, 2021 February 01, 2021 3:30pm [facility] 3[facility]29pm [facility] January 25, 2021 January 25, 2021 3:09pm Fabiola staton [facility] Services 12:06pm Renzo Care Departed [facility] January 19, 2021 January 19, 2021 5:03am [facility] 5:[facility] December 23December 23, 2020 5:05am [facility] Department 2020 3:24am Departed [facility] December 07December 07, 2020 7:46am [facility] 2020 7:45am Melody Functional Status Query [...]
--- OUTSIDE RECORDS SUMMARY | 2022-03-21 09:31 | XMS_ITS | Continuity of Care Document ---
:1975 Author Organization [facility] Address [address] [place] [address] Care Team Providers Name Role Phone Carolina [...] 8:35am Urine Specific April 09, 2020 1.025 [place] (Manual) 8:35am POC Urine RBC April 09, [...] have a copy on [facility] here [place] [facility]? No O ct2018 1:44pm Does patient have an Advanced Directive? No June 25, 2019 1:44pm Pt has a Living Will? No June 25, 2019 1 :44pm Pt has a Power of Hand Carver? No June 25, 2019 1:44pm Chief Complaint [...] Discharge/Departure Atte nding Date Date Provider Departed [facility] April 23April 23, 2020 Adi [facility] 2019 8:43am 8:44am [facility] Departed [facility] April 09, 2020 April 09, 2020 9:40 am Adi [facility] 8:23am [facility] Services Office Visit Departed [facility] Emergency April 08, 2020 April 08, 2020 10:10p m [facility] Department 9:44pm Departed [facility] DI April 08, 2020 April 08, 2020 10:07a m [facility] 10:06am [facility] Departed [facility] Emergency April 08, 2020 April 08, 2020 12:39p m [facility] Department 10:03am Departed [facility] Emergency April 08, 2020 April 08, 2020 1:22am [facility] Department 12:35am Departed [facility] Emergency June 25June 25, 2019 Emergency [...] Party Id MEDICAID OF Medicaid YOLANDA FANG [id number] Self/Same as YOLANDA FANG [id number] [place] Patient SELF PAY Personal Plan of Care [...]
--- OUTSIDE RECORDS SUMMARY | 2022-03-21 09:31 | XMS_ITS | Continuity of Care Document ---
:1975 Author Organization [facility] Address [address] [place] [address] Phone Care Team Providers Name Role Phone Out of Town, Provider Primary Care Provider Unavailable Carolina Aguirre Attending Provider Carolina Aguirre Primary Care Provider Kwaku Joshi Attending Provider Carmen Bañuelos Attending Provider Jj Lopez JR Attending Provider Unavailable Allergies, Adverse Reactions, Alerts Allergen Type Severity Reaction Last Updated Verified Status cephalexin Allergy unknown June 29, 2020 1:44pm Yes Active Medications Medication Status Dose Units Route Directions Qty Days Start End Ins tructions Date Date Gabapentin Active 300 MG PO THREE TIMES Tonya A DAY 2019 11:45p m Ibuprofen Active 600 MG PO THREE TIMES Tonya A DAY 2019 11:45p m Levofloxacin Discontin 750 MG PO DAILY 10 March ued 2019 12:03a 1:44pm m Problems Active Problems Medical Problem Onset Date Status Epididymo-orchitis Active Inactive/Resolved Problems Medical Problem Onset Date Status Testicular abscess Resolved Heart palpitations Resolved Vaso-vagal reaction Resolved Left epididymitis Resolved Procedures Procedure Date Performed Status US Testicles (Scrotal) June 04, 2020 1:30pm completed US Testicles (Scrotal) April 23, 2020 7:30am completed Hip 2 vw Min RT April 08, 2020 9:38am completed Lumbar Spine 2-3 vw April 08, 2020 9:39am completed INTERFACE ELECTROCARDIOGRAM June 10, 2020 10:58pm comple anselmo ECHO Complete June 18, 2020 11:30am completed US Testicles (Scrotal) April 07, 2020 11:00pm completed Relevant Diagnostic Tests and/or Laboratory Data Laboratory Results Test Date/Time Result Interpretation Reference Result Perfo rming Range Comment Site POC Urinalysis April 09, Clinitek Method 2019 Auto 7:35am Urine Color April 09, Yellow (Manual) 2019 7:35am Urine Clarity April 09, Clear (Manual) 2019 7:35am POC Urine Glucose April 09, Negative 2019 7:35am POC Urine April 09, Negative Bilirubin 2019 Confirmation 7:35am Urine Ketones April 09, Negative (Manual) 2019 7:35am Urine Specific April 09, 1.025 [place] (Manual) 2019 7:35am POC Urine RBC April 09, Trace 2019 Intact 7:35am Urine pH (Manual) April 09, 5.5 2019 7:35am POC Urine Protein April 09, Negative Confirmation 2019 7:35am Urine April 09, 0.2 Urobilinogen 2019 (Manual) 7:35am Urine Nitrite April 09, Negative (Manual) 2019 7:35am Urine Leukocyte April 09, Negative Esterase (Manual) 2019 7:35am White Blood Count August 21.00 4.8-10.8 [place] IN LAB, [address] [facility] 2019 1000/mm3 [facility] [address] 11:01am White Blood Count June 20.14 4.8-10.8 [place] IN LAB, [address] [place] [address] 2019 1000/mm3 [facility] [address]79[address] 11:25pm White Blood Count April 08, 9.22 4.8-10.8 M AIN LAB, [address] [place] [address] 2019 1000/mm3 [facility] [address] 11:03am Red Blood Count August 5.37 M/mm3 4.70-6.00 LED[facility] N LAB, [address] [place] [address] 2019 [facility] [address] 11:01am Red Blood Count June 5.37 M/mm3 4.70-6.00 LEDA N LAB, [address] [place] [address] 2019 [facility] [address] 11:25pm Red Blood Count April 08, 5.22 M/mm3 4.70-6.00 MA IN LAB, [address] [place] [address] 2019 [facility] 438[address] 11:03am Hemoglobin August 15.1 g/dL 14.0-18.0 MAIN LAB, [address] [place] [address] 2019 [facility] 478[address] 11:01am Hemoglobin June 15.1 g/dL 14.0-18.0 MAIN LAB, [address] [place] [address] 2019 [facility] [address] 11:25pm Hemoglobin April 08, 14.7 g/dL 14.0-18.0 MAIN LAB , [address] [place] [address] 2019 [facility] 669[address] 11:03am Hematocrit August 47.3 % 42-52 MAIN LAB, [address] [place] [address] 2019 [facility] [address] 11:01am Hematocrit June 46.7 % 42-52 MAIN LAB, [address] [place] [address] 2019 [facility] [address]86[address] 11:25pm Hematocrit April 08, 45.9 % 42-52 MAIN LAB , [address] [place] [address] 2019 [facility] 987[address] 11:03am Mean Corpuscular August 88.1 fL 80.0-94.0 LED[facility] N LAB, [address] [place] [address] 2019 [facility] [address] 11:01am Mean Corpuscular June 87.0 fL 80.0-94.0 [facility] N LAB, [address] [place] [address] 2019 [facility] [address] 11:25pm Mean Corpuscular April 08, 87.9 fL 80.0-94.0 MA IN LAB, [address] [place] [address] 2019 [facility] 405[address] 11:03am Mean Corpuscular August 28.1 pg 27-31 LED[facility] N LAB, [address] [place] [address] [place] [address] 11:01am Mean Corpuscular June 28.1 pg 27-31 LEDA N LAB, [address] [place] [address] [place] [address] 11:25pm Mean Corpuscular April 08, 28.2 pg 27-31 MA IN LAB, [address] [place] [address] [place] [address] 11:03am Mean Corpuscular August 31.9 g/dL 33-37 LED[facility] N LAB, [address] [place] [address] [place] [address] Concent 11:01am Mean Corpuscular June 32.3 g/dL 33-37 [facility] N [facility], [address] [place] [address] [place] [address] Concent 11:25pm Mean Corpuscular April 08, 32.0 g/dL 33-37 MA IN LAB, [address] [place] [address] [place] [address] Concent 11:03am Red Cell August 14.0 % 11.5-14.5 MAIN LAB, [address] [place] [address] [place] [address] Width 11:01am Red Cell June 14.1 % 11.5-14.5 MAIN LAB, [address] [place] [address] [place] [address] Width 11:25pm Red Cell April 08, 14.0 % 11.5-14.5 MAIN LAB, [address] [place] [address] [place] [address] Width 11:03am Platelet Count August 328 140-440 MAIN LAB, [address] [place] [address] 2019 1000/[place]3 [place] [address] 11:01am Platelet Count June 276 140-440 MAIN LAB, [address] [place] [address] 2019 1000/[place]3 [place] [address] 11:25pm Platelet Count April 08, 284 140-440 MAIN LAB, [address] [place] [address] 2019 1000/[place]3 [place] [address] 11:03am Mean Platelet August 10.9 fL 7.4-10.4 MAIN L AB, [address] [place] [address] [place] [address] 11:01am Mean Platelet June 10.3 fL 7.4-10.4 MAIN L AB, [address] [place] [address] Volume 2019 [place] [address] 11:25pm Mean Platelet April 08, 10.4 fL 7.4-10.4 MAIN LAB, [address] [place] [address] Volume 2019 [place] [address] 11:03am Neutrophils (%) August 62.1 % 40.0-72.0 MAIN LAB, [address] [place] [address] (Auto) 2019 . [place] [address] 11:01am Neutrophils (%) June 70.9 % 40.0-72.0 MAIN LAB, [address] [place] [address] (Auto) 2019 [place] [address] 11:25pm Neutrophils (%) April 08, 60.7 % 40.0-72.0 LEDA N LAB, [address] [place] [address] (Auto) 2019 [place] [address] 11:03am Lymphocytes (%) August 29.7 % 17-45 MAIN LAB, [address] [place] [address] (Auto) 2019 . [place] [address] 11:01am Lymphocytes (%) June 20.0 % 17-45 MAIN LAB, [address] [place] [address] (Auto) 2019 [place] [address] 11:25pm Lymphocytes (%) April 08, 28.7 % 17-45 LEDA N LAB, [address] [place] [address] (Auto) [address] [place] [address] 11:03am Monocytes (%) August 5.9 % 3-11 MAIN L AB, [address] [place] [address] (Auto) 2019 . [place] [address] 11:01am Monocytes (%) June 6.3 % 3-11 MAIN L AB, [address] [place] [address] (Auto) 2019 [place] [address] 11:25pm Monocytes (%) April 08, 6.4 % 3-11 MAIN LAB, [address] [place] [address] (Auto) 2019 [place] [address] 11:03am Eosinophils (%) August 1.3 % 0-3 MAIN LAB, [address] [place] [address] (Auto) 2019 [place] [facility] [place] [address] 11:01am Eosinophils (%) June 1.6 % 0-3 MAIN LAB, [address] [place] [address] (Auto) [address] [place] [address] 11:25pm Eosinophils (%) April 08, 2.7 % 0-3 LEDA N LAB, [address] [place] [address] (Auto) [address] [place] [address] 11:03am Basophils (%) August 0.6 % 0-1 MAIN L AB, [address] [place] [address] (Auto) [address] [place] [address] 11:01am Basophils (%) June 0.7 % 0-1 MAIN L AB, [address] [place] [address] (Auto) [address] [place] [address] 11:25pm Basophils (%) April 08, 0.7 % 0-1 MAIN LAB, [address] [place] [address] (Auto) [address] [place] [address] 11:03am Immature August 0.4 % 0-1 MAIN LAB, [address] [place] [address] Granulocyte % [address] [place] [address] (Auto) 11:01am Immature June 0.5 % 0-1 MAIN LAB, [address] [place] [address] Granulocyte % [address] [place] [address] (Auto) 11:25pm Immature April 08, 0.8 % 0-1 MAIN LAB, [address] [place] [address] Granulocyte % [address] [place] [address] (Auto) 11:03am Neutrophils # August 7.45 1.4-6.5 MAIN L AB, [address] [place] [address] (Auto) 2019 1000/[place]3 [place] [address] 11:01am Neutrophils # June 7.89 1.4-6.5 MAIN L AB, [address] [place] [address] (Auto) 2019 1000/[place]3 [place] [address] 11:25pm Neutrophils # April 08, 5.60 1.4-6.5 MAIN LAB, [address] [place] [address] (Auto) 2019 1000/[place]3 [place] [address] 11:03am Lymphocytes # August 3.56 1.2-3.4 MAIN L AB, [address] [place] [address] (Auto) 2019 1000/[place]3 [place] [address] 11:01am Lymphocytes # June 2.23 1.2-3.4 MAIN L AB, [address] [place] [address] (Auto) 2019 1000/[place]3 [place] [address] 11:25pm Lymphocytes # April 08, 2.65 1.2-3.4 MAIN LAB, [address] [place] [address] (Auto) 2019 1000/mm3 [place] [address] 11:03am Monocytes # August 0.71 0.0-0.8 MAIN LAB , [address] [place] [address] (Auto) 2019 1000/[place] [address] 11:01am Monocytes # June 0.70 0.0-0.8 MAIN LAB , [address] [place] [address] (Auto) 2019 1000/[place]3 [place] [address] 11:25pm Monocytes # April 08, 0.59 0.0-0.8 MAIN LA B, [address] [place] [address] (Auto) 2019 1000/[place]3 [place] [address] 11:03am Eosinophils # August 0.16 0.0-0.7 MAIN L AB, [address] [place] [address] (Auto) 2019 1000/[place] [address] 11:01am Eosinophils # June 0.18 0.0-0.7 MAIN L AB, [address] [place] [address] (Auto) 2019 1000/[place]3 [place] [address] 11:25pm Eosinophils # April 08, 0.25 0.0-0.7 MAIN LAB, [address] [place] [address] (Auto) 2019 1000/[place]3 [place] [address] 11:03am Basophils # August 0.07 0.0-0.1 MAIN LAB , [address] [place] [address] (Auto) 2019 1000/[place] [address] 11:01am Basophils # June 0.08 0.0-0.1 MAIN LAB , [address] [place] [address] (Auto) 2019 1000/[place]3 [place] [address] 11:25pm Basophils # April 08, 0.06 0.0-0.1 MAIN LA B, [address] [place] [address] (Auto) 2019 1000/mm3 [place] [address] 11:03am Absolute Immature August 0.1 0-1 MA IN LAB, [address] [place] [address] Granulocyte (auto [address] [place] [address] 11:01am Absolute Immature June 0.1 0-1 MA IN LAB, [address] [place] [address] Granulocyte (auto 2019 [place] [address] 11:25pm Absolute Immature April 08, 0.1 0-1 M AIN LAB, [address] [place] [address] Granulocyte (auto 2019 [facility] [place] [address] 11:03am Differential August Automated MAIN LA B, [address] [facility] Method [address] [place] [address] 11:01am Differential June Automated MAIN LA B, [address] [place] [address] Method 2019 [place] [address] 11:25pm Differential April 08, Automated MAIN L AB, [address] [place] [address] Method 2019 [place] [address] 11:03am Sodium Level August 137 mmol/L 137-145 MAIN L AB, [address] [place] [address] [facility] [address] 11:01am Sodium Level June 138 mmol/L 137-145 MAIN L AB, [address] [place] [address] 2019 [place] [address] 11:25pm Potassium Level August 4.3 mmol/L 3.6-5.0 LEDA N LAB, [address] [place] [address] [facility] [place] [address] 11:01am Potassium Level June 3.6 mmol/L 3.6-5.0 LEDA N LAB, [address] [place] [address] 2019 [place] [address] 11:25pm Chloride Level August 105 mmol/L 98-107 MAIN LAB, [address] [place] [address] [facility] [facility] [place] [address] 11:01am Chloride Level June 103 mmol/L 98-107 MAIN LAB, [address] [place] [address] 2019 [place] [address] 11:25pm Carbon Dioxide August 26 mmol/L -30 MAIN LAB, [address] [place] [address] [facility] [facility] [place] [address] 11:01am Carbon Dioxide June 29 mmol/L -30 MAIN LAB, [address] [place] [address] 2019 [place] [address] 11:25pm Anion Gap August 1503-25 MAIN LAB, [address] [place] [address] [place] [facility] [place] [address] 11:01am Anion Gap June 1503-25 MAIN LAB, [address] [place] [address] 2019 [place] [address] 11:25pm Blood Urea August 12 mg/dL 05-05 MAIN LAB, [address] [place] [address] [place] [place] [address] 11:01am Blood Urea June 13 mg/dL 8-26 MAIN LAB, [address] [place] [address] Nitrogen 2019 [facility] [address] 11:25pm Creatinine August 0.95 mg/dL 0.66-1.25 MAIN LAB , [address] [place] [address] 2019 [facility] [address] 11:01am Creatinine June 0.97 mg/dL 0.66-1.25 MAIN LAB , [address] [place] [address] 2019 [facility] [address] 11:25pm Glomerular Parker > 60 >60.0 MAIN LAB, [address] [place] [address] Filtration Rate 2019 mL/min [facility] [address] Calc 11:01am Glomerular October > 60 >60.0 MAIN LAB, [address] [place] [address] Filtration Rate 2019 mL/min [facility] [address] Calc 11:25pm Glucose Level August 101 mg/dL 70-100 MAIN L AB, [address] [place] [address] 2019 [facility] [address] 11:01am Glucose Level June 125 mg/dL 70-100 MAIN L AB, [address] [place] [address] 2019 [facility] [address] 11:25pm Calcium Level August 9.4 mg/dL 8.4-10.2 MAIN L AB, [address] [place] [address] 2019 [facility] [address] 11:01am Calcium Level June 9.1 mg/dL 8.4-10.2 MAIN L AB, [address] [place] [address] 2019 [facility] [address] 11:25pm Calcium Adjusted August 9.6 mg/dL 8.4-10.2 LEDA N LAB, [address] [place] [address] for Albumin 2019 [facility] [address] 11:01am Calcium Adjusted June 9.3 mg/dL 8.4-10.2 LEDA N LAB, [address] [place] [address] for Albumin 2019 [facility] [address] 11:25pm Total Bilirubin August 0.5 mg/dL 0.2-1.3 MAIN LAB, [address] [place] [address] 2019 [facility] [address] 11:01am Total Bilirubin June 0.3 mg/dL 0.2-1.3 MAIN LAB, [address] [place] [address] 2019 [facility] [address] 11:25pm Aspartate Amino Parker 34 U/L 17-59 MAIN LAB, [address] [place] [address] Transf (AST/SGOT) 2019 [facility] [place] [address] 11:01am Aspartate Amino June 34 U/L 17-59 MAIN LAB, [address] [place] [address] Transf (AST/SGOT) 2019 [place] [address] 11:25pm Alanine August 50 U/L <50 As of MAIN LAB, [address] [place] [address] Aminotransferase 201901/09/20, [place] [address] (ALT/SGPT) 11:01am Reference Range for ALT/SGPT for adult patients has been updated. The Reference Range for ALT/SGPT has not been established for patients <18 years of age. Alanine June 48 U/L <50 As of MAIN LAB, [address] [place] [address] Aminotransferase 201901/09/20, the [facility] [place] [address] (ALT/SGPT) 11:25pm Reference Range for ALT/SGPT for adult patients has been updated. The Reference Range for ALT/SGPT has not been established for patients <18 years of age. Troponin I June < 0.012 0-0.034 Reference MAIN LAB, [address] [place] [address] 2019 ng/mL Range: [place] [address] 11:25pm <0.034 ng/mL AMI Cut-off 0.120 ng/mLThe results of this assay can be falsely decreased in patients who consume Biotin. Total Protein August 7.3 g/dL 6.3-8.2 MAIN L AB, [address] [place] [address] 2019 [facility] [address] 11:01am Total Protein June 7.4 g/dL 6.3-8.2 MAIN L AB, [address] [place] [address] 2019 [facility] [address] 11:25pm Albumin August 4.0 g/dL 3.5-5.0 MAIN LAB, [address] [place] [address] 2019 [facility] [address] 11:01am Albumin June 4.1 g/dL 3.5-5.0 MAIN LAB, [address] [place] [address] 2019 [facility] [address] 11:25pm Cholesterol Level August 229 mg/dL 59-199 [place] IN LAB, [address] [place] [address] 2019 [facility] [address] 11:01am HDL Cholesterol August 33 mg/dL 40-60 [facility] AIN LAB, [address] [place] [address] [place] [address] 11:01am Education Program (NCEP) has set the following guidelines (reference values) for cholesterol, HDL:Low HDL: <40 mg/dLNormal: 40-60 mg/dLDesirab le: >60 mg/dL LDL Cholesterol August 145.0 0-129 MAIN LAB, [address] [facility] 2019 mg/[place] [address] 11:01am VLDL Cholesterol August 51.0 mg/dL 0-32 [place] IN LAB, [address] [place] [address] [place] [address] 11:01am Cholesterol/HDL August 6.93 0-3.9 MAIN LAB, [address] [place] [address] [place] [address] 11:01am Triglycerides August 255 mg/dL 0-149 MAIN L AB, [address] [facility] Level [address] [place] [address] 11:01am Alkaline August 103 U/L 38-126 MAIN LAB, [address] [place] [address] [place] [address] 11:01am Alkaline June 92 U/L 38-126 MAIN LAB, [address] [place] [address] [place] [address] 11:25pm Thyroid August 1.89 mlU/L 0.47-4.68 The results MAIN LA B, [address] Stimulating [address] [place] [address] Hormone (TSH) 11:01am assay can be falsely decreased in patients who consume Biotin. Diagnostic Imaging Reports Report Dictated Date/Time Dictated By Status Radiology Report April 08, 2020 10:52am Tori Millan MD co mpleted [facility] ULTRASOUND REPORT PATIENT NAME: YOLANDA FANG 15 DATE OF : 1975 ATTENDING/ER PHYSICIAN: ER/ATTENDING PHYSICIAN: Mihir Miranda NP PRIMARY CARE PHYS: Out Town ADMITTING PHYSICIAN: CONSULTING PHYSICIAN: PROCEDURE DATE: 04/08/20 REPORT STATUS: Signed DICTATING PHYSICIAN: Tori Millan MD REASON FOR EXAM: PAIN STUDY: US Testicles (Scrotal). TECHNIQUE: grayscale and color flow maddie ges of the testes were obtained. FINDINGS: The right testicle demonstrates homogen eous echotexture and measures 4.5 x 2.2 x 3 cm. Normal right epididymal head measures 0 .6 x 1.5 x 0.7 cm Trace clear right hydrocele is noted. No varicoceles are noted. There is extensive cutaneous edema in t he left hemiscrotum. The left testicle demonstrates heteroge neous echotexture and measures 5.1 x 3 x 2.8 cm. Complex hypoechoic intratesticular mass along the medial half of the left testicle measures 2.9 x 1.8 x 2.3 cm. There is increased vascularity along th e inferior margin of this mass with paucity of flow within its hypoechoic co re. Edematous and hyperemic left epididymal head measures 1.5 x 1.1 x 1.6 cm. There is parenchymal edema and hyperemi a in the left epididymal body and tail. There is moderate complex appearing lef t hydrocele. CONCLUSION: Left epididymitis-orchitis with 2.9 x 1 .8 x 2.3 cm intratesticular abscess. Seminoma is felt to be less likely due t o absent intra-lesion blood flow, evidence of ipsilateral epididymitis and reactive pyocele. Consultation with urology specialist is warranted as discu ssed with the ordering clinician at 11:00 AM on the morning of this dictatio n. dd: 04/08/20 1052 <Electronically signed by Tori hart MD in [place]> 04/08/20 1112 Radiology Report April 08, 2020 11:17am Tori Millan MD co mpleted [facility] RADIOLOGY REPORT PATIENT NAME: YOLANDA FANG 15 DATE OF : 1975 ATTENDING/ER PHYSICIAN: Carolina perez NP ER/ATTENDING PHYSICIAN: PRIMARY CARE PHYS: [place] ADMITTING PHYSICIAN: CONSULTING PHYSICIAN: PROCEDURE DATE: 04/08/20 REPORT STATUS: Signed DICTATING PHYSICIAN: Tori Millan MD REASON FOR EXAM: LOW BACK PAIN STUDY: Lumbar Spine 2-3 vw No comparison. FINDINGS: There are five non rib bearing lumbar t ype vertebral bodies. There is normal alignment of the verteb ral bodies and posterior elements. All vertebral bodies maintain normal he ight. Mild loss of disc height and hypertroph ic facet arthrosis are noted at L5-S1. CONCLUSION: No acute osseous abnormalities. dd: 04/08/207 <Electronically signed by Tori hart MD in [place]> 04/08/20 1118 Radiology Report April 08, 2020 11:18am Tori Millan MD co mpleted [facility] RADIOLOGY REPORT PATIENT NAME: YOLANDA FANG 15 DATE OF : 1975 ATTENDING/ER PHYSICIAN: Carolina perez CASH PROCESSING SPECIALIST ER/ATTENDING PHYSICIAN: PRIMARY CARE PHYS: Out [facility] ADMITTING PHYSICIAN: CONSULTING PHYSICIAN: PROCEDURE DATE: 04/08/20 REPORT STATUS: Signed DICTATING PHYSICIAN: Tori Millan MD REASON FOR EXAM: RIGHT HIP PAIN STUDY: Hip 2 vw Min RT No comparison exam is available. FINDINGS: There are no acute osseous abnormalitie s. There is mild loss of acetabular joint space with subtle acetabular roof sclerosis. A small hip joint effusion is identifie d. 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 There is no gluteus enthesopathy. The obturator ring is intact. The osseous mineralization is normal. CONCLUSION: 1. No acute osseous abnormalities. dd: 04/08/201117 <Electronically signed by Tori hart MD in OV> 04/08/20 1126 Radiology Report April 23, 2020 9:27am Tori Millan MD c ompleted [facility] ULTRASOUND REPORT PATIENT NAME: YOLANDA FANG 15 DATE OF : 1975 ATTENDING/ER PHYSICIAN: Jerome ruiz MD ER/ATTENDING PHYSICIAN: PRIMARY CARE PHYS: Carolina Aguirre CASH PROCESSING SPECIALIST ADMITTING PHYSICIAN: CONSULTING PHYSICIAN: PROCEDURE DATE: 04/23/20 REPORT STATUS: Signed DICTATING PHYSICIAN: Tori Millan MD REASON FOR EXAM: orchitis STUDY: US Testicles (Scrotal). TECHNIQUE: grayscale and color flow maddie ges of the testes were obtained. FINDINGS: The left testicle demonstrates heteroge neous echotexture and measures 4.9 x 2.5 x 2.6 cm. Edematous left epididymal head measures 1.2 x 1.8 x 1.3 cm. Parenchymal hyperemia is noted in the l eft epididymal body and tail. Previously described intratesticular ab scess measures 1.9 x 2.5 x 1.4 cm (3 x 1.7 x 2.3 on prior study.) Increased vascularity is noted in the l eft testicle. Skin edema has improved since prior exa m. The right testicle demonstrates homogen eous echotexture and measures 4.7 x 2.4 x 2.9 cm. The right epididymal head is normal and measures 0.7 x 1.7 x 1.1 cm Clear right hydrocele is incidentally n oted. Vascular flow is normal. There are no varicoceles. CONCLUSION: Improving left epididymoorchitis. dd: 04/23/2027 <Electronically signed by Tori hart MD in OV> 04/23/2031 Radiology Report June 04, 2020 2:34pm Jaye Scott MD completed [facility] ULTRASOUND REPORT PATIENT NAME: YOLANDA FANG 15 DATE OF : 1975 ATTENDING/ER PHYSICIAN: Jerome ruiz MD ER/ATTENDING PHYSICIAN: PRIMARY CARE PHYS: Carolina Aguirre NP ADMITTING PHYSICIAN: CONSULTING PHYSICIAN: PROCEDURE DATE: 06/04/20 REPORT STATUS: Signed DICTATING PHYSICIAN: Jaye Scott MD REASON FOR EXAM: Status epididymoorchitis STUDY: US Testicles (Scrotal). CLINICAL HISTORY: Epididymo-orchitis. COMPARISON: 04/23/2020 TECHNIQUE: Grayscale, color, and pulsed Doppler images of the testes were obtained. FINDINGS: The right testicle demonstrates homogen eous echotexture and measures 4.7 x 3.2 x 2.3 cm. The right epididymal head is unremarkab le in appearance and measures 1.0 x 0.9 x 0.7 cm. The left testicle measures 4.6 x 2.3 x 2.3 cm. Interval decrease in size of heterogeneous masslike region in the sup erior aspect of the testicle now measuring 0.8 x 0.8 x 0.6 cm (previously 2.5 x 1.9 x 1.5 cm), most consistent with resolving intratesticular abscess. No internal vascularity is noted in this region. The left epididymal head is unremarkabl e in appearance and measures 1.2 x 0.7 x 0.7 cm. Normal flow is noted in both testes. No varicoceles are noted bilaterally. Trace bilateral hydroceles, likely phys iologic. IMPRESSION: Progressive interval decrease in size o f left testicular abscess. Follow up to resolution is recommended. dd: 06/04/20 1434 <Electronically signed by Jaye reveles MD in OV> 06/04/20 1438 Electrocardiogram June 10, 2020 11:49pm Roscoe Guerrero MD comp [facility] EKG PATIENT NAME: YOLANDA FANG 15 DATE OF : 1975 ATTENDING PHYSICIAN: PRIMARY CARE PHYS: Carolina Aguirre CASH PROCESSING SPECIALIST DICTATING PHYSICIAN: Roscoe Guerrero MD REPORT STATUS: Signed Test Reason : Blood Pressure : / mmHG Vent. Rate : 103 BPM Atrial Rate : 103 BPM P-R Int : 150 ms QRS Dur : 086 ms QT Int : 332 ms P-R-T Axes : 023 062 03 0 degrees QTc Int : 434 ms Sinus tachycardia Otherwise normal ECG Confirmed by Roscoe Guerrero ([id number]) on 2019 1:03:17 AM Referred By: Roscoe Guerrero Confirmed By:Lasha Guerrero 06/11/20 0103 Advance Directives Advance Directive Response Recorded Date/Time Does patient have an Advanced Directive? No June 25, 2019 12:44pm [place] we [place] [facility] [place] O ctober 2018 12:44pm Pt has a Living Will? No June 25, 2019 12:44pm Do we [place] a [place] [facility] [place] O ctober 2018 12:44pm Pt has a Power of Resistor Winder? No June 12:44pm Do we [place] a [place] [facility] [place] No O ctober 2018 12:44pm Chief Complaint and Reason for Visit Chief Complaint TESTICLE PAIN FOLLOW UP US RT HIP PAIN; LBP TESTICULAR COMPLAINT New Patient Orchitis and epididymitis Orchitis and epididymitis Chest Pain Other forms of dyspnea follow up Reason for Visit Epididymo-orchitis Epididymo-orchitis Encounters Encounter Location(s) Arrival/Admit Discharge/Depart Provider(s ) Date Date Departed [facility] April 07, 2020 April 08, 2020 [facility] Emergency Medical 11:35pm 12:22am Center-Emergency Department Departed [facility] April 08, 2020 April 08, 2020 [facility] Emergency Medical 9:03am 11:39am Center-Emergency Department Departed [facility] April 08, 2020 April 08, 2020 Manuel Figueroa [facility] 9:06am 9:07am , SRIDEVI [facility] Departed [facility] April 08, 2020 April 08, 2020 [facility] Emergency Medical 8:44pm 9:10pm Center-Emergency Department Departed [facility] April 09, 2020 April 09, 2020 Jerome Joshi Physician/[facility] Medical 7:23am 8:40am MD pricer Office [facility] Visit internal affairs investigator Services Departed [facility] April 23, 2020 April 23, 2020 Jerome younger [facility] 7:43am 7:44am MD [facility] Departed [facility] June 04, June 04, 2020 Jerome cordova [facility] 2019 1:17pm 1:18pm MD [facility] Departed [facility] June 10, 2020 June 11, 2020 [facility] Emergency Medical 10:46pm 12:27am Center-Emergency Department Departed [facility] June 18, 2020 June 18, 2020 CARLOTTA Morales [facility] 11:10am 11:11am Malick cazares [facility] Departed [facility] June 29, June 29, 2020 Jerome Joshi Physician/Prov Medical 2019 1:41pm 2:05pm MD pricer Office [facility] Visit internal affairs investigator Services Departed [facility] August 20, August 20, 2020 Quinn Lopez JR, [facility] Medical 2019 4:17pm 4:18pm [facility] Recent Diagnosis Onset Date Epididymo-orchitis Epididymo-orchitis Assessments Diagnosis Onset Date Resolution Status Epididymo-orchitis acute Epididymo-orchitis acute Functional Status Observation Response Date Recorded Living Situation Home June 11, 2020 12 :27am Living Situation Home April 08, 2020 8:51 pm With Spouse April 08, 2020 8:51 pm Living Situation Home April 08, 2020 11:3 7am Living Situation Home April 08, 2020 12:2 2am With Spouse April 08, 2020 12:2 2am Goals Goals may be documented in an alternate section. Mental Status Observation Response Date Recorded Comprehension Ability Understands Concepts April 07, 2020 1 1:50pm Medical Equipment No Medical Equipment Information available Insurance Providers Guarantor YOLANDA FANG Address [address] [place] [id number] Contact Info. Home Phone: Payer Policy Id Coverage Id Subscriber's Subscriber Id Effective E xpiration Name Date Date [place]ICAID OF [id number] YOLANDA FANG [id number] [place] SELF PAY Self N/A Plan of Treatment Likely left epididymal orchitis. He was started on levofloxacin yesterday. He was hesitant to take any pain medication yesterday but has taken overnight and feels better. Scrotal ultrasound suggested possible testicular abscess and inflammation of the epididymis. Initial management would be conservative with antibiotics anti-inflammatory scrotal elevation and rest. There is always a concern for underlying testicular lesion. Repeat scrotal ultrasound in couple weeks. Asked patient to call if he has increased swelling fever chills and not feeling well in general. Signed - 04/09/20 08:54 Epididymo-orchitis Plan Likely left epididymal orchitis. He was started on levofloxacin yesterday. He was hesitant to take any pain medication yesterday but has taken overnight and feels better. Scrotal ultrasound suggested possible testicular abscess and inflammation of the epididymis. Initial management would be conservative with antibiotics anti-inflammatory scrotal elevation and rest. There is always a concern for underlying testicular lesion. Repeat scrotal ultrasound in couple weeks. Asked patient to call if he has increased swelling fever chills and not feeling well in general. 06/29/2020; follow-up for left epididymoorchitis. Initially started in March with ultrasound 04/08/2020 showing left testicular mass thought to be abscess due to presentation as well as signs of ipsilateral epididymitis and some pyocele. He was treated with antibiotics and symptoms improved. He has had serial scrotal ultrasounds one in April and then 1 in May. Both of these have shown progressive reduction in the size of the abscess which initially was around 3 cm and now 0.8 cm on the latest. On physical exam no palpable testicular mass. We will continue to follow serially with ultrasound in a couple months which will be 3 months from his last ultrasound which was in May 2020. 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 SPECIALIST [place] [address] Manuel Singhin Work Phone: [address] Figueroa , CASH PROCESSING SPECIALIST [facility] [id number] Jerome Willoughby Work Phone: [facility] [place] [place] MD Adi [address] [facility] [id number] [address] Future Procedures Future procedure information is unavailable Future Medications Future medication information is unavailable Patient Instructions Epididymitis (DC) COVID 19 General Instructions- decrease the spread of coronavirus ([facility]) COVID 19 General Instructions- decrease the spread of coronavirus ([facility]) Palpitations (DC) COVID 19 General Instructions- decrease the spread of coronavirus ([facility]) Social History Smoking Status Status Date of Observation Smokes tobacco daily (finding) June 29, 2020 2:50 pm Observation Status Observation Response Date of Response Alcohol Use No June 11, 2020 12 :19am alcohol intake frequency holidays/special occasions only Jun 12:19am Substance/Street Drug Use No June 11 12:19am Substance Use Treatment No June 11 0 12:19am Smoking Status Current every day smoker June 29 1:50pm Assigned Sex Male Vital Signs Vital Reading Result Reference Range Collection Date/ Time Weight 199.58 kg April 08, 2020 12:38am Body Temperature 98.0 [degF] 97.6-99.6 April 08, 2020 12:38am Heart Rate 109 /min 60-100 April 08, 2020 1:15am Respiratory rate 20 /min 12-April 08, 2020 1:15am Oxygen saturation by Pulse 98 % 95-100 April 08, 2020 1:15am oximetry BP Systolic 156 mm[Hg] 100-140 April 08, 2020 1:15am BP Diastolic 98 mm[Hg] 50-85 April 08, 2020 1:15am Weight 199.58 kg April 08, 2020 12:00pm Body Temperature 98.2 [degF] 97.6-99.6 April 08, 2020 12:00pm Heart Rate 106 /min 60-100 April 08, 2020 12:00pm Respiratory rate 18 /min 12-April 08, 2020 12:00pm Oxygen saturation by Pulse 97 % 95-100 April 08, 2020 12:00pm oximetry BP Systolic 162 mm[Hg] 100-140 April 08, 2020 12:00pm BP Diastolic 98 mm[Hg] 50-85 April 08, 2020 12:00pm Weight 199.58 kg April 08, 2020 9:45pm Body Temperature 98.1 [degF] 97.6-99.6 April 08, 2020 9:45pm Heart Rate 118 /min 60-100 April 08, 2020 9:45pm Respiratory rate 24 /min -April 08, 2020 9:45pm Oxygen saturation by Pulse 95 % 95-100 April 08, 2020 9:45pm oximetry BP Systolic 151 mm[Hg] 100-140 April 08, 2020 9:45pm BP Diastolic 96 mm[Hg] 50-85 April 08, 2020 9:45pm Height 76 [in_i] April 09, 2020 8:30am Weight 199.58 kg April 09, 2020 8:30am Heart Rate 103 /min 60-100 April 09, 2020 8:30am Respiratory rate 20 /min -April 09, 2020 8:30am BP Systolic 128 mm[Hg] 100-140 April 09, 2020 8:30am BP Diastolic 86 mm[Hg] 50-85 April 09, 2020 8:30am BMI (Body Mass Index) 53.5 kg/m2 April 09, 2020 8:30am Weight 203.20 kg June 10 11:49pm Body Temperature 98.1 [degF] 97.6-99.6 June 10 11:49pm Heart Rate 94 /min 60-100 June 11 1:27am Respiratory rate 16 /min -June 11 1:27am Oxygen saturation by Pulse 99 % 95-100 2019 1:27am oximetry BP Systolic 124 mm[Hg] 100-140 June 11 0 1:27am BP Diastolic 75 mm[Hg] 50-85 June 11 0 1:27am Height 76 [in_i] June 29 2:47pm Body Temperature 97.4 [degF] 97.6-99.6 June 29, 2 020 2:47pm Heart Rate 114 /min 60-100 June 29 2:47pm Respiratory rate 18 /min 12-June 29, 2 020 2:47pm BP Systolic 118 mm[Hg] 100-140 June 29 2:47pm BP Diastolic 88 mm[Hg] 50-85 June 29 2:47pm Hospital Discharge Instructions
--- OUTSIDE RECORDS SUMMARY | 2022-03-21 09:31 | XMS_ITS | Continuity of Care Document ---
:1975 Author Organization [facility] Address [address] [place] [address] Care Team Providers Name Role Phone Carolina [...] have a copy [place] here [place] [facility] [place] O ct2018 1:44pm Does patient have an Advanced Directive? No June 25, 2019 1:44pm Pt has a Living Will? No June 25, 2019 1 :44pm Pt has a Power of Senior Mobile Developer? No June 25, 2019 1:44pm Chief Complaint [...] m [facility] Department 9:44pm Departed [facility] April 08, 2020 April 08, 2020 [facility] April 08, 2020 April 08, 2020 12:39p m [facility] Department 10:03am Departed [facility] Emergency April 08, 2020 April 08, 2020 1:22am Emergency Medical Center Department 12:35am Departed [facility] Emergency June 25June 25, 2019 [...] Party Green Party Id MEDICAID OF Medicaid Verified Self/Same as Verif ied [place] Patient SELF PAY Personal Plan of [...]
--- OUTSIDE RECORDS SUMMARY | 2022-03-21 09:31 | XMS_ITS | Continuity of Care Document ---
:1975 Author Organization [facility] Address [address] [place] [address] Phone Care Team Providers Name Role Phone jJ Lopez JR Primary Care Provider Melody Robles Attending Provider MD Renzo Sweet Attending Provider MD Kwaku Joshi Attending Provider Jj Lopez JR Attending Provider SRIDEVI Morel Attending Provider Chief Complaint and Reason for Visit Chief Complaint Contact with and (suspected) exposure to COVID-19 PALPITATIONS Contact with and (suspected) exposure to COVID-19 Hemorrhage of anus and rectu m epididymitis Follow up EYE COMPLAINT/SOB S/P EAR INFECTION Shortness of Breath Thyroiditis, unspecified ALL COVID SYMPTOMS NEW PATIENT Reason for Visit Change in bowel function Morbid obesity due to excess calories Smoker Epididymo-orchitis Allergies, Adverse Reactions, Alerts Allergen Type Severity Reaction Last Updated Verified Status cephalexin Allergy gi upset October 11, 2021 11:39am Aashish anderson Active Social History Smoking Status Status Start Date End Date Date of Observat ion Smokes tobacco daily (finding) J anuary 2021 7:24pm Observation Status Observation Response Date of Response Alcohol Use Yes September 29, 2021 9 :03pm alcohol intake frequency holidays/special occasions only Ron wilson 2021 9:03pm Substance/Street Drug Use Yes September 29, 2021 9:03pm Substance Use Treatment No September 29 9:03pm substance use type marijuana September 29, 2021 9 :03pm Smoking Status Current every day smoker October 09, 2 022 7:24pm Additional Data Assigned Sex Male Family History Relationship Condition Age at Onset Recorded Date/Ti me Not Specified Polyp of colon Unknown Problems Active Problems Medical Problem Onset Date Status Epididymo-orchitis Active Change in bowel function Active Morbid obesity due to excess calories Ac tive Smoker Active Inactive/Resolved Problems Medical Problem Onset Date Status Testicular abscess Resolved Heart palpitations Resolved Palpitations Resolved Acute viral syndrome Resolved Conjunctivitis Resolved Otitis media Resolved Vaso-vagal reaction Resolved Left acute suppurative otitis media Reso lved Left epididymitis Resolved Hypertension Resolved Medications Medication Status Dose Units Route Directions Qty Days Start End Ins tructions Date Date Levofloxacin Disconti 500 MG PO DAILY 10 Decemb nued r , er 2019, 8:34am 2019 12:01a m Gabapentin Active 300 MG PO THREE TIMES Tonya A DAY 2019 11:45pm Ibuprofen Active 600 MG PO THREE TIMES Tonya A DAY 2019 11:45pm Levofloxacin Disconti 750 MG PO DAILY 19 March Oct nued , r 2019, 12:03am 2019 1:44pm Metoprolol Active 50 MG PO TWICE A DAY February Tartrate 2020 12:21pm Erythromycin Active 1 APPLIC LEFTEYE DAILY 3.5 February 22, 2021 12:22pm Cyclobenzapr Active MG TABLET Decembe ine r 2020 11:11pm Gabapentin Active MG TABLET Decembe r 2020 11:11pm Meloxicam Active MG TABLET Decembe r 2020 11:11pm Amoxicillin Disconti 875 MG PO TWICE A DAY 14 7 Decembe Dec emb nued r , er 2021 08, 1:10am 2020 12:01a m Amoxicillin- Active 1 TAB PO TWICE A DAY September, Clavulanate 2021 (Augmentin) 8:20pm 875-125 mg tablet Immunizations Immunization Event Not Given Dose Wrong Address Clerk Lot Number Vac cine Date Reason Number Informatio n Statement (VIS) Detail Covid-January 07mcg/0.3ml , Pfizer (Purple 2020 top) Covid-January 19 30mcg/0.3ml 2020 Pfizer (Purple top) Procedures Procedure Date Performed Status US Thyroid Soft Tissue Neck September 15, 2021 2:00pm complet ed CT Chest w/o Contrast September 08, 2021 5:00pm completed DIAGNOSTIC COLONOSCOPY January 25, 2021 active INTERFACE ELECTROCARDIOGRAM December 23, 2020 2:38am complete d US Testicles (Scrotal) February 01, 2021 2:30pm completed Relevant Diagnostic Tests and/or Laboratory Data Laboratory Results Test Date/Time Result Interpretation Reference Result Comment Performing Range Site White Blood December 8.70 4.8-10.8 MAIN LAB Count 2020 1000/mm3 [address] [facility] 2:40am [facility] [address] Red Blood December 5.05 M/mm3 4.70-6.00 MAIN LAB Count [address] 2:40am [facility] [address] Hemoglobin December 14.3 g/dL 14.0-18.0 MAIN LAB 2020 [address] [facility] 2:40am [facility] [address] Hematocrit December 43.3 % 42-52 MAIN LAB 2020 [address] [facility] 2:40am [facility] [address] Mean December 85.7 fL 80.0-94.0 MAIN LAB Corpuscular [address] [place] [address] Volume 2:40[place] [address] Mean December 28.3 pg 27-31 MAIN LAB Corpuscular [address] [place] [address] Hemoglobin 2:40am . [place] [address] Mean December 33.0 g/dL 33-37 MAIN LAB Corpuscular [address] [place] [address] Hemoglobin 2:40am [facility] [address] Concent Red Cell December 13.9 % 11.5-14.5 MAIN LAB Distribution [address] [place] [address] Width 2:40[place] [address] Platelet December 258 140-440 MAIN LAB Count 2020 1000/mm3 [address] [place] [address] 2:40am [place] [address] Mean December 10.1 fL 7.4-10.4 MAIN LAB Platelet [address] [place] [address] Volume 2:40[place] [address] Neutrophils December 57.1 % 40.0-72.0 MAIN LAB (%) (Auto) [address] [place] [address] 2:40am [place] [address] Lymphocytes 33.7 % 17-45 MAIN LAB (%) (Auto) [address] [place] [address] 2:40am [place] [address] Monocytes 6.0 % 3-11 MAIN LAB (%) (Auto) [address] [place] [address] 2:40am [place] [address] Eosinophils 2.2 % 0-3 MAIN LAB (%) (Auto) [address] [place] [address] 2:40am [place] [address] Basophils 0.7 % 0-1 MAIN LAB (%) (Auto) [address] [place] [address] 2:40am [place] [address] Immature 0.3 % 0-1 MAIN LAB Granulocyte [address] [place] [address] % (Auto) 2:40[place] [address] Neutrophils 4.97 1.4-6.5 MAIN LAB # (Auto) 2020 1000/mm3 [address] [place] [address] 2:40am [place] [address] Lymphocytes 2.93 1.2-3.4 MAIN LAB # (Auto) 2020 1000/mm3 [address] [facility] 2:40am [place] [address] Monocytes # 0.52 0.0-0.8 MAIN LAB (Auto) 2020 1000/mm3 [address] [facility] 2:40am [place] [address] Eosinophils 0.19 0.0-0.7 MAIN LAB # (Auto) 2020 1000/mm3 [address] [facility] 2:40am [place] [address] Basophils # 0.06 0.0-0.1 MAIN LAB (Auto) 2020 1000/mm3 [address] [facility] 2:40am [place] [address] Absolute 0.0 0-1 MAIN LAB Immature 2020 [address] [facility] Granulocyte 2:40am [facility] [facility] [address] (auto Differential December Automated MAIN LA B Method 2020 [address] [facility] 2:40am [place] [address] Sodium Level December 140 mmol/L 137-145 MAIN L AB 2020 [address] [facility] 2:40am [place] [address] Potassium December 3.5 mmol/L 3.6-5.0 MAIN LAB Level 2020 [address] [facility] 2:40am [place] [address] Chloride December 105 mmol/L 98-107 MAIN LAB Level 2020 [address] [facility] 2:40am [place] [address] Carbon December 29 mmol/L 22-30 MAIN LAB Dioxide 2020 [address] [facility] Level 2:40[place] [address] Anion Gap December 6 7-16 MAIN LAB 2020 [address] [facility] 2:40am [place] [address] Blood Urea December 11 mg/dL 8-26 MAIN LAB Nitrogen 2020 [address] [facility] 2:40am [place] [address] Creatinine December 0.85 mg/dL 0.66-1.25 MAIN LAB 2020 [address] [facility] 2:40am [place] [address] Glomerular December > 60 >60.0 MAIN LAB Filtration 2020 mL/min [address] [place] [address] Rate Calc 2:40[place] [address] Glucose December 121 mg/dL 70-100 MAIN LAB Level [address] [place] [address] 2:40am [place] [address] Calcium December 8.5 mg/dL 8.4-10.2 MAIN LAB Level [address] [place] [address] 2:40am [place] [address] Magnesium December 2.0 mg/dL 1.6-2.3 MAIN LAB Level [address] [place] [address] 2:40am [place] [address] Troponin I December < 0.012 0-0.034 Reference MAIN LAB 2020 ng/mL Range: <0.[address] [place] [address] 2:40am ng/[place] [address] Cut-off 0.120 ng/mLThe results of this assay can be falsely decreased in patients who consume Biotin. SARS-CoV-2 November Negative Negative This test is MAIN L AB RNA (RT-PCR) 2020 only for use [address] [place] [address] 10:00am under the Food [place] [place] [address] and Drug Administration' s (FDA) Emergency Use Authorization (EUA). This test has not been FDA cleared or approved.Not for screening.Nasal swabs are considered an acceptable sample type, however performance with this type has not been established.Neg ative results do not preclude infection and should not be used as the sole basis of treatment or other patient management decisions. Negative results must be combined with clinical observations, patient history, and/or epidemiological information.Fac t sheets for providers can be found at: fda.gov/media/1 18950/downloadF act sheets for patients can be found at: fda.gov/media/1 66100/download SARS-CoV-2 January 19 Negative This test is MAIN L AB RNA (RT-PCR) 2020 only for use [address] [place] [address] 12:00pm [place] [address] and Drug Administration' s (FDA) Emergency Use Authorization (EUA). This test has not been FDA cleared or approved.Not for screening.Nasal swabs are considered an acceptable sample type, however performance with this type has not been established.Neg ative results do not preclude infection and should not be used as the sole basis of treatment or other patient management decisions. Negative results must be combined with clinical observations, patient history, and/or epidemiological information.Fac t sheets for providers can be found at: [employer]/Socialthing/ 13302/downloadF act sheets for patients can be found at: [employer]/Socialthing/ 90595/download SARS-CoV-2 September Negative Negative Note: This MAIN LAB RNA (RT-PCR) 2021 RT-PCR assay is [facility] 8:54pm intended for [address] [place] [address] the [facility] [address] qualitative detection of nucleic acid from SARS-CoV-2.This test has not been FDA cleared or approved. This test has been authorized by the FDA under an Emergency Use Authorization (EUA) for use by authorized laboratories. Fact sheets for providers can be found at: [employer]/Socialthing/ 14452/downloadF act sheets for patients can be found at: [employer]/Socialthing/ 44264/download Diagnostic Imaging Reports Report Dictated Date/Time Dictated By Status Electrocardiogram December 23, 2020 3:28am Mario Belcher completed [facility] EKG PATIENT NAME: YOLANDA KO 15 DATE OF : 1975 ATTENDING PHYSICIAN: PRIMARY CARE PHYS: Jj Lopez JR, DO DICTATING PHYSICIAN: Demarco Wyatt MD REPORT STATUS: Signed Test Reason : Blood Pressure : / mmHG Vent. Rate : 096 BPM Atrial Rate : 096 BPM P-R Int : 176 ms QRS Dur : 086 ms QT Int : 350 ms P-R-T Axes : 030 039 01 7 degrees QTc Int : 442 ms Normal sinus rhythm Low voltage QRS Borderline ECG When compared with ECG of 10-JUN-2020 2 3:49, No significant change was found Confirmed by Demarco Wyatt ([id number]) on 12/23/2020 4:57:59 AM Referred By: Demarco Wyatt Confirm ed By:Demarco Wyatt 12/23/20 0458 Report Dictated Date/Time Dictated By Status Colonoscopy January 25, 2021 2:02pm Marty Sweet MD c ompleted [address] [address] OPERATIVE PROCEDURE REPORT PATIENT: Yolanda Ko DATE: 01/25/2021 MR# [id number] PROCEDURE: Colonoscopy, diagnostic VISIT ID: [id number] ENDOSCOPIST: Dr. Renzo Sweet MD BIRTHDATE: 1975 NURSES' AIDE: Martín Iraheta rn GENDER: male INDICATIONS: Diagnostic colonscopy and Constipation MEDICATIONS: See anesthesia notes MEDICATION START TIME: MD OUT TIME: DESCRIPTION OF PROCEDURE: After the ris ks benefits and alternatives of the procedure were thoroughly explained, in formed consent was obtained. Digital rectal exam performed and revealed no a bnormalities of the rectum. The [id number] ([id number]) endoscope was intro duced through the anus and advanced to the cecum, which was identified by both the appendix and ileocecal valve. The quality of the prep was good. The instr ument was then slowly withdrawn as the colon was fully examined. The patient w as monitored throughout for IV conscious sedation to include oximetry, telemetry and blood pressure monitoring. COLON FINDINGS: A normal appearing cecu m, ileocecal valve, and appendiceal orifice were identified. The ascending, transverse, descending, sigmoid colon, and rectum appeared unremarkable. Retro flexed views revealed no abnormalities. The scope was then completely withdrawn from the patient and the procedure terminated. COMPLICATIONS: There were no complicati ons. IMPRESSION: Normal colonoscopy RECOMMENDATIONS: Call [phone] for prob lems REPEAT EXAM: Return in 10 years Colonos copy or as needed for changes.. CC: Jj Lopez Jr eSigned: Dr. Renzo Sweet MD 1 2:04 PM Name: Yolanda Ko, [id number] Report Dictated Date/Time Dictated By Status Radiology Report February 01, 2021 4:27pm PhD Kenzie Padgett MD completed [facility] ULTRASOUND REPORT PATIENT NAME: YOLANDA KO 15 DATE OF : 1975 ATTENDING/ER PHYSICIAN: Jerome ruiz MD ER/ATTENDING PHYSICIAN: PRIMARY CARE PHYS: Jj Lopez JR, DO ADMITTING PHYSICIAN: CONSULTING PHYSICIAN: PROCEDURE DATE: 02/01/21 REPORT STATUS: Signed DICTATING PHYSICIAN: Kenzie Padgett MD , PhD REASON FOR EXAM: testicular pain epididymitis STUDY: US Testicles (Scrotal). COMPARISON: Ultrasound of testicles of 08/27/2020, 06/04/2020, 04/23/2020 and 04/08/2020 TECHNIQUE: grayscale and color flow maddie ges of the testes were obtained. FINDINGS: The right testicle demonstrates homogen eous echotexture and measures 4.9 x 2.3 x 3.6 cm. Normal flow is noted on color Doppler. The right epididymal head is normal and measures 0.7 x 1.4 x 0.8 cm. There is no hyperemia. No varicocele or hydrocele is demonstra anselmo. The left testicle demonstrates homogene ous echotexture and measures 4.3 x 2.1 x 2.6 cm. There is interval decrease in size of 1 .3 x 1.0 cm hypoechoic irregular avascular area in the testicular upper p ole. Disease may represent evolution of previously demonstrated abscess. Otherwi se, normal flow is noted in the rest of the left testicle. The left epididymal head is normal and measures 1.3 x 1.3 x 1.3 cm. No hyperemia is visualized. Small left varicocele measuring 3 mm at rest and 3.4 mm with Valsalva maneuver is noted. No hydrocele. CONCLUSION: 1. No testicular mass or torsion. 2. No ultrasound evidence of epididymit is or orchitis. dd: 02/01/21 1627 <Electronically signed by Kenzie hart MD, PhD in [place]> 02/01/21 1639 Report Dictated Date/Time Dictated By Status Radiology Report September 10, 2021 10:06pm Sunshine Montgomery MD completed [facility] CAT SCAN REPORT PATIENT NAME: YOLANDA KO 15 DATE OF : 1975 ATTENDING/ER PHYSICIAN: Jj Lopez JR, DO ER/ATTENDING PHYSICIAN: PRIMARY CARE PHYS: Jj Lopez JR, DO ADMITTING PHYSICIAN: CONSULTING PHYSICIAN: PROCEDURE DATE: 09/08/21 REPORT STATUS: Signed DICTATING PHYSICIAN: Sunshine Montgomery MD REASON FOR EXAM: Shortness of breath PROCEDURE INFORMATION: Exam: CT Chest Without Contrast; Diagno stic Exam date and time: 09/08/2021 5:14 PM Age: 46 years old Clinical indication: Shortness of breat h TECHNIQUE: Imaging protocol: Diagnostic computed t omography of the chest without contrast. Radiation optimization: All CT scans at this facility use at least one of these dose optimization techniques: automated exposure control; mA and/or kV adjustment per patient size (includes t argeted exams where dose is matched to clinical indication); or iterative drake nstruction. COMPARISON: CTA Angio Chest w/wo Contrast 0 12:16 FINDINGS: Thyroid: Enlarged heterogeneous left th yroid gland. Calcification in the right thyroid gland. Lungs: Low lung volumes. Stable left lo wer lobe pulmonary nodule. Bibasilar reticular markings consistent with atel ectasis. Pleural spaces: Unremarkable. No pneumo thorax. No pleural effusion. Heart: Cardiomegaly. Aorta: Unremarkable. No aortic aneurysm . Lymph nodes: Unremarkable. No enlarged lymph nodes. Stomach: Food distended stomach. Bones/joints: Unremarkable. No acute fr acture. Soft tissues: Stable subcutaneous nodul e posterior right upper back. IMPRESSION: 1. No acute cardiopulmonary disease on noncontrast CT. 2. Stable left lower lobe lung nodule. 3. Enlarged heterogeneous thyroid gland warrants further evaluation with dedicated thyroid ultrasound. Electronically Signed By : Sunshine bonilla MD dd: 09/10/21220509/10/212205 Report Dictated Date/Time Dictated By Status Radiology Report September 16, 2021 8:21am Arnie Murillo MD completed [facility] ULTRASOUND REPORT PATIENT NAME: YOLANDA KO 15 DATE OF : 1975 ATTENDING/ER PHYSICIAN: Les Yoon ER/ATTENDING PHYSICIAN: PRIMARY CARE PHYS: Jj Lopez JR, DO ADMITTING PHYSICIAN: CONSULTING PHYSICIAN: PROCEDURE DATE: 09/15/21 REPORT STATUS: Signed DICTATING PHYSICIAN: Arnie Murillo MD REASON FOR EXAM: Thyroiditis, unspecified EXAM: US HEAD NECK SOFT TISSUE CLINICAL HISTORY: Thyroiditis COMPARISON: CT 09/08/2020 TECHNIQUE: Grayscale imaging and color Doppler ultrasound of the thyroid gland was performed. FINDINGS: The right thyroid lobe is not enlarged and measures 5.4 x 2.1 x 2.4 cm. The right thyroid parenchyma is homogeneous. There is a 4 x 3 x 2 cm colloid cyst at the superior pole. There is a 9 x 7 x 9 mm solid nodule with peripheral macrocalcifications of the inferior pole of the right thyroid, TIRADS-4. The color Doppler blood flow in the right th yroid lobe is within normal limits. The left thyroid lobe is not enlarged a nd measures 7.2 x 3.5 x 3.8 cm. The left thyroid parenchyma is homogeneous. There is a solid, hypoechoic, smoothly marginated 4.5 x 3.8 x 2.9 cm nodule, TI RADS-4. The color Doppler blood flow in the left thyroid lobe is within normal l imits. The thyroid isthmus is not thickened an d measures up to 11 in AP dimension. There is a 8 x 7 x 4 mm colloid cyst. No lymphadenopathy is identified in the visualized neck adjacent the thyroid gla nd. IMPRESSION: 1. Recommend fine-needle aspiration of the TIRADS-4 left thyroid nodule. Recommend annual follow-up for the TI-RA DS 4 right thyroid nodule. dd: 09/16/21 0821 <Electronically signed by Arnie brasher MD in OV> 09/16/21 0847 Vital Signs Vital Reading Result Reference Range Collection Date/ Time Weight 201.84 kg December 23, 2020 2:34am Body Temperature 97.6 [degF] 97.6-99.6 December 23 2:34am Heart Rate 91 /min 60-100 December 23, 2020 3:36am Respiratory rate 20 /min -December 23 3:36am Oxygen saturation by Pulse 97 % 95-100 December 23, 2020 3:36am oximetry BP Systolic 151 mm[Hg] 100-140 December 23, 2020 3:36am BP Diastolic 96 mm[Hg] 50-85 December 23, 2020 3:36am Height 75 [in_i] January 13, 2021 7: 40am Weight 204.11 kg January 13, 2021 7: 40am Body Temperature 99 [degF] 97.6-99.6 January 25, 2021 1:10pm Heart Rate 118 /min 60-100 January 25, 2021 1 :48pm Respiratory rate 16 /min 12-24 January 25, 2021 1:48pm Oxygen saturation by Pulse 100 % 95-100 January 082020 1:48pm oximetry BP Systolic 128 mm[Hg] 100-140 January 25, 2021 1 :48pm BP Diastolic 89 mm[Hg] 50-85 January 25, 2021 1 :48pm BMI (Body Mass Index) 56.2 kg/m2 January 13, 2 021 7:40am Inhaled oxygen flow rate 3 L/min January 1:10pm Heart Rate 92 /min 60-100 February 10, 2021 1 :49pm Respiratory rate 20 /min -February 10, 2021 1:49pm BP Systolic 128 mm[Hg] 100-140 February 10, 2021 1 :49pm BP Diastolic 98 mm[Hg] 50-85 February 10, 2021 1 :49pm Weight 198.67 kg February 22, 2021 11:55am Body Temperature 97.4 [degF] 97.6-99.6 February 22, 2021 11:55am Heart Rate 108 /min 60-100 February 22, 2021 11:55am Respiratory rate 22 /min -February 22, 2021 11:55am Oxygen saturation by Pulse 97 % 95-100 February 22, 2021 11:55am oximetry BP Systolic 144 mm[Hg] 100-140 February 22, 2021 11:55am BP Diastolic 101 mm[Hg] 50-85 February 22, 2021 11:55am Height 76 [in_i] August 13 11:07pm Weight 196.40 kg August 13 11:07pm Body Temperature 98.4 [degF] 97.6-99.6 August 13, 2 021 11:07pm Heart Rate 88 /min 60-100 August 14 1:30am Respiratory rate 22 /min -August 14, 2 021 1:30am Oxygen saturation by Pulse 98 % 95-100 2020 1:30am oximetry BP Systolic 160 mm[Hg] 100-140 August 14 1:30am BP Diastolic 100 mm[Hg] 50-85 August 14 1:30am Height 76 [in_i] September 29 8:52pm Weight 90.71 kg September 29 8:52pm Body Temperature 98.2 [degF] 97.6-99.6 September 29, 2 022 8:52pm Heart Rate 100 /min 60-100 September 29 8:52pm Respiratory rate 18 /min 12-September 29, 022 8:52pm Oxygen saturation by Pulse 100 % 95-100 2021 8:52pm oximetry BP Systolic 159 mm[Hg] 100-140 September 29 8:52pm BP Diastolic 89 mm[Hg] 50-85 September 29 8:52pm BP Systolic 130 mm[Hg] 100-140 October 11 11:44am BP Diastolic 90 mm[Hg] 50-85 October 11 11:44am Advance Directives Advance Directive Response Recorded Date/Time Does patient have an Advanced Directive? No June 25, 2019 12:44pm Do we have a copy on file here at [facility]? No O ctober 2018 12:44pm Pt has a Living Will? No June 25, 2019 12:44pm Do we have a copy on file here at [facility]? No O ctober 2018 12:44pm Pt has a Power of Is/It Project Manager? No June 12:44pm Do we have a copy on file here at [facility]? No O ctober 2018 12:44pm Insurance Providers Guarantor YOLANDA KO Address [address] [place] [address] Contact Info. 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 Em delmi Yu Clinical Medical 6:45am 6:46am [facility] Departed [facility] December 23, 2020 December 23, 2020 [facility] Emergency Medical 2:24am 4:05am Group-Emergency Department Departed [facility] January 19, 2021 January 19, 2021 4:03am Kd pineda Clinical Medical 4:02am MD Micki [facility] Departed [facility] January 25, 2021 January 25, 2021 2:09pm Kd pineda Surgical Day Medical 11:06am MD Micki [facility]-Surgical Services Departed [facility] February 01, 2021 February 01, 2021 2:30pm Jerome cordova [facility] 2:29pm Mario Joshi [facility] Departed [facility] February 10, 2021 February 10, 2021 2:07pm Jerome cordova Physician/[facility] 1:44pm MD albert Joshir [facility] Visit n Urology Services Departed [facility] February 22, 2021 February 22, 2021 [facility] Emergency Medical 11:47am 12:38pm Group-Emergency Department Departed [facility] August 13, 2021 August 14, 2021 nul l Emergency Medical 11:02pm 1:34am Group-Emergency Department Departed [facility] September 08, September 08, 2021 Quinn Lopez [facility] 2020 5:01pm 5:02pm DO RUDDY [facility] Departed [facility] September 15, 2021 September 15, 2021 Kenna Morel [facility] 1:43pm 1:44pm SRIDEVI [facility] Departed [facility] September 29, 2021 September 29, 2021 [facility] Emergency Medical 6:31pm 9:12pm Group-Emergency Department Departed [facility] October 11, 2021 October 11, 2021 Anibal Mandel Physician/Prov Medical 11:31am 12:03pm DO vandana Suarez [facility] Visit n ENT Recent Diagnosis Onset Date Change in bowel function Morbid obesity due to excess calories Smoker Epididymo-orchitis Functional Status Observation Response Date Recorded Living Situation Home September 29, 2021 9 :08pm With Family September 29, 2021 9 :08pm Mental Status Observation Response Date Recorded Speech Appropriate September 29, 2021 9 :00pm Comprehension Ability Understands Concepts February 22, 2021 1 2:05pm Mood/Behavior Appropriate February 22, 2021 12:0 5pm Assessments Diagnosis Onset Date Resolution Status Change in bowel function acute Morbid obesity due to excess calories acute Smoker acute Epididymo-orchitis acute Plan of Treatment Epididymo-orchitis Plan Likely left epididymal orchitis. He [...] last ultrasound which was in May 2020. 09/24/2020; follow-up for left epididymoorchitis which initially started in March with ultrasound 04/08/2020 showing left testicular mass thought to be abscess due to presentation signs and symptoms. He had a scrotal ultrasound in April and then May both have shown progressive reduction in size of the abscess which is usually around 3 cm and then 0.8 cm. He did have another scrotal ultrasound 08/27/2020, this ultrasound did not mention any testicular mass or abscess, reports edematous left epididymal head measuring 1.4 x 1.4 cm. He was treated with another round antibiotics for possible epididymitis which he has finished. Not having any acute symptoms the usual testicular epididymal discomfort. On physical exam no obvious induration noted. No indication for any surgery at this time. No suggest follow-up with ultrasound 4 months. 02/10/2021; follow-up for left epididymoorchitis which initially started in March with ultrasound 04/08/2020 showing left testicular mass thought to be abscess due to presentation signs and symptoms. He had a scrotal ultrasound in April and then May both have shown progressive reduction in size of the abscess which is usually around 3 cm and then 0.8 cm. He did have another scrotal ultrasound 08/27/2020, this ultrasound did not mention any testicular mass or abscess, reports edematous left epididymal head measuring 1.4 x 1.4 cm. He was treated with another round antibiotics for possible epididymitis which he has finished. Subsequent 4-month ultrasound on 02/01/2021 reported below; There is interval decrease in size of 1.3 x 1.0 cm hypoechoic irregular avascular area in the testicular upper pole. Disease may represent evolution of previously demonstrated abscess. Otherwise, normal flow is noted in the rest of the left testicle. CONCLUSION: 1. No testicular mass or torsion. 2. No ultrasound evidence of epididymitis or orchitis Clinically he has been doing very well without any scrotal symptoms enlargement or pain. He will follow-up as needed or 1 year with follow-up ultrasound scrotum Future Tests Future scheduled test information is unavailable Pending Tests Pending diagnostic test information is unavailable Future Visits Future appointment information is unavailable Referrals to Other Providers Reason for Referral Start Provider Provider Contact Provider Address Referral Date Information [employer] Work Phone: Alicia FUENTES JR, DO [address] [place] [address] Jj Lopez Work Phone: Alicia FUENTES JR, DO [address] [place] [place] [address] 8 Jj Lopez Work Phone: Alicia FUENTES JR, DO [address] [place] [place] [address] 8 Jj Lopez Work Phone: Alicia FUENTES JR, DO [address] [place] [place] [address] 8 Future Procedures Future procedure information is unavailable Future Medications Future medication information is unavailable Patient Instructions Palpitations (DC) COVID 19 General Instructions- decrease the spread of coronavirus ([facility]) COVID 19 General Instructions- decrease the spread of coronavirus ([facility]) High Blood Pressure (DC) Conjunctivitis ([facility]) ED COVID 19 General Instructions- decrease the spread of coronavirus ([facility]) Ear Infection ED Viral Syndrome (DC) Ear Infection ED Goals Acute Goals Patient remains free from: Fluid/electrolyte imbalance S/sx thrombophlebitis Abdominal distention S/sx ileus Constipation * Uses pain scale appropriately * Identify options for pain control - Analgesics - Narcotics - Non-medication measures * Verify required physcial preparations have been accomplished * Verify required procedures/tests have been completed * Verify required clinical documentation is available for review * Exhibits granulation/healing at site * Exhibits decreased drainage at site * Exhibits no s/s of infection * Exhibits a decrease in lesion size * Maintains nutritional status * Maintains hydration status * Maintains optimal lab values * Exhibits capillary refill < 3 seconds * Maintains strong peripheral pulses * Verbalizes absence of pain * Exhibits baseline skin warmth, color * Maintains baseline blood pressure * Maintains urine output of 30 cc/hr
--- OUTSIDE RECORDS SUMMARY | 2022-03-21 09:31 | XMS_ITS | Continuity of Care Document ---
:1975 Author Organization [facility] Address [address] [place] [address] Care Team Providers Name Role Phone Jj [...] MG ORAL DAILY 10 August 30, Decem keznie 31, Discontinued 2019 2019 Levofloxacin 750 MG ORAL DAILY 10 April 08June 2 0, Discontinued 2019 2019 Problem List Active Problems Medical Problem Onset Date Status Palpitations Active Epididymo-orchitis Active Inactive/Resolved Problems Medical Problem [...] 8:35am Urine Specific April 09, 2020 1.025 [place] (Manual) 8:35am POC Urine RBC April 09, [...] 0.5 mg/dL 0.2-1.3 2019 11:01am Aspartate Amino Parker 11, 34 U/L 17-59 Transf (AST/SGOT) 2019 11:01am [...] fo r providers can be found at: [email or web address] Fact sheets fo r patients can be found at: [email or web address] /[email or web address]/download Chief Complaint and Reason for Visit Encounter [...] Date Provider Departed [facility] Emergency December 23, December 23, 2020 5:05am [facility] Department 2020 3:24am Departed [facility] December 07, December 07, 2020 7:46am Mika dial [facility] 2020 7:45am Melody Departed [facility] September 24September 24, 2020 Meri bowen, [facility] 2020 11:32am 11:54am Kwaku her Services Office Visit [facility] September 17September 17, 2020 Brett hart [facility] 2020 2:47pm 3:46pm [facility] 2020 Meri bowen [facility] 2019 2:26pm 2:27pm [facility] August 23August 23, 2020 [facility] 11:13am 11:14am Quinn o [facility] 4[facility]17[facility] 4:18[facility] June 29June 29, 2020 Meri bowen, [facility] 2019 2:41pm 3:05pm Kwaku ovider Services Office Visit Departed [facility] June 18, June 18, 2020 Arianne liliaana [facility] 2019 12:10pm 12:11pm [facility] Departed [facility] Emergency June 10June 11, 2020 [facility] Department 2019 11:46pm 1:27[facility]June 04, 2020 [facility] 2019 2:17pm 2:18pm [facility] April 23April 23, 2020 Adi [facility] 2019 8:43am 8:44am [facility] April 09, 2020 April 09, 2020 9:40 am Adi [facility] 8:23am [facility] April 08, 2020 April 08, 2020 10:10p m [facility] Department 9:44pm [facility] April 08, 2020 April 08, 2020 10:07a [facility] April 08, 2020 April 08, 2020 12:39p m [facility] 10[facility] April 08, 2020 April 08, 2020 1:22am [facility] Department 12:35am Functional Status Query Response Date Recorded Comment Comprehension Ability Understands Concepts April 08, 2020 12:50am Query Response Date Recorded Comment Living Situation Home December 23, 2020 5:04am Immunizations No known immunizations. Plan of Care Instructions Palpitations (DC) COVID 19 General Instructions- decrease the spread of coronavirus ([facility]) Social History Query Response Date Recorded Comment Alcohol Use No December 23, 2020 4:58am Smoking Status Current every day smoker December 23, 2020 4:58am Substance Use Treatment No December 23, 2020 4:58am Substance/Street Drug Use Yes December 23, 2020 4:58am alcohol intake frequency holidays/special occasions December 23 4:58am only substance use type marijuana December 23, [...]
--- OUTSIDE RECORDS SUMMARY | 2022-03-21 09:31 | XMS_ITS | Continuity of Care Document ---
:1975 Author Organization [facility] Address [address] [place] [address] Phone Care Team Providers Name Role Phone Out of Town, Provider Primary Care Provider Unavailable Carolina Aguirre Attending Provider Carolina Aguirre Primary Care Provider Kwaku Joshi Attending Provider Carmen Bañuelos Attending Provider Jj Lopez JR Attending Provider Jj Lopez JR Primary Care Provider Melody Robles Attending Provider Allergies, Adverse Reactions, Alerts Allergen Type Severity Reaction Last Updated Verified Status cephalexin Allergy unknown September 24, 2020 12:34pm Ye monica Active Medications Medication Status Dose Units Route Directions Qty Days Start End Ins tructions Date Date Levofloxacin Discontin 500 MG PO DAILY 10 Decembe Decemb ued r , er 2019, 9:34am 2019 1:01am Gabapentin Active 300 MG PO THREE TIMES Tonya A DAY 2019 12:45am Ibuprofen Active 600 MG PO THREE TIMES Tonya A DAY 2019 12:45am Levofloxacin Discontin 750 MG PO DAILY 10 Marchobe ued , r 2019, 1:03am 2019 2:44pm Problems Active Problems Medical Problem Onset Date Status Epididymo-orchitis Active Inactive/Resolved Problems Medical Problem Onset Date Status Testicular abscess Resolved Heart palpitations Resolved Vaso-vagal reaction Resolved Left epididymitis Resolved Procedures Procedure Date Performed Status CTA Angio Chest w/wo Contrast August 23, 2020 12:30pm co mpleted US Testicles (Scrotal) June 04, 2020 2:30pm completed US Testicles (Scrotal) April 23, 2020 8:30am completed Hip 2 vw Min RT April 08, 2020 10:38am completed Lumbar Spine 2-3 vw April 08, 2020 10:39am completed US Testicles (Scrotal) August 27, 2020 3:30pm completed INTERFACE ELECTROCARDIOGRAM June 10, 2020 11:58pm comple anselmo ECHO Complete June 18, 2020 12:30pm completed US Testicles (Scrotal) April 08, 2020 12:00am completed Relevant Diagnostic Tests and/or Laboratory Data Laboratory Results Test Date/Time Result Interpretation Reference Result Comment Performing Range Site POC April 09, Clinitek Urinalysis 2019 Auto Method 8:35am Urine Color April 09, Yellow (Manual) 2019 8:35am Urine Clarity April 09, Clear (Manual) 2019 8:35am POC Urine April 09, Negative Glucose 2019 8:35am POC Urine April 09, Negative Bilirubin 2019 Confirmation 8:35am Urine Ketones April 09, Negative (Manual) 2019 8:35am Urine April 09, 1.025 Specific 2020 [place] 8:35am (Manual) POC Urine RBC April 09, Trace 2019 Intact 8:35am Urine pH April 09, 5.5 (Manual) 2019 8:35am POC Urine April 09, Negative Protein 2019 Confirmation 8:35am Urine April 09, 0.2 Urobilinogen 2019 (Manual) 8:35am Urine Nitrite April 09, Negative (Manual) 2019 8:35am Urine April 09, Negative Leukocyte 2019 Esterase 8:35am (Manual) White Blood August 12.00 4.8-10.8 MAIN LAB , [address] [facility] 2019 1000/mm3 [facility] [place] [address] 12:01pm White Blood June 11.14 4.8-10.8 MAIN LAB , [address] [place] [address] 2019 1000/mm3 [place] [address] 12:25am White Blood April 08, 9.22 4.8-10.8 MAIN LA B, [address] [facility] 2019 1000/mm3 [place] [address] 12:03pm Red Blood August 5.37 M/mm3 4.70-6.00 MAIN LAB, [address] [place] [address] 2019 [facility] [place] [address] 12:01pm Red Blood June 5.37 M/mm3 4.70-6.00 MAIN LAB, [address] [place] [address] 2019 [place] [address] 12:25am Red Blood April 08, 5.22 M/mm3 4.70-6.00 MAIN LAB , [address] [place] [address] 2019 [place] [address] 12:03pm Hemoglobin August 15.1 g/dL 14.0-18.0 MAIN LAB, [address] [place] [address] 2019 [facility] [place] [address] 12:01pm Hemoglobin June 15.1 g/dL 14.0-18.0 MAIN LAB, [address] [place] [address] 2019 [place] [address] 12:25am Hemoglobin April 08, 14.7 g/dL 14.0-18.0 MAIN LAB , [address] [place] [address] 2019 [place] [address] 12:03pm Hematocrit August 47.3 % 42-52 MAIN LAB, [address] [place] [address] 2019 [place] [address] 12:01pm Hematocrit June 46.7 % 42-52 MAIN LAB, [address] [place] [address] 2019 [place] [address] 12:25am Hematocrit April 08, 45.9 % 42-52 MAIN LAB , [address] [place] [address] 2019 [place] [address] 12:03pm Mean August 88.1 fL 80.0-94.0 MAIN LAB, [address] [place] [address] 2019 [facility] [place] [address] Volume 12:01pm Mean June 87.0 fL 80.0-94.0 MAIN LAB, [address] [place] [address] 2019 [place] [address] Volume 12:25am Mean April 08, 87.9 fL 80.0-94.0 MAIN LAB, [address] [place] [address] 2019 [place] [address] Volume 12:03pm Mean August 28.1 pg 27-31 MAIN LAB, [address] [place] [address] 2019 [facility] [place] [address] Hemoglobin 12:01pm Mean June 28.1 pg 27-31 MAIN LAB, [address] [place] [address] 2019 [place] [address] Hemoglobin 12:25am Mean April 08, 28.2 pg 27-31 MAIN LAB, [address] [place] [address] [address] [place] [address] Hemoglobin 12:03pm Mean August 31.9 g/dL 33-37 MAIN LAB, [address] [place] [address] 2019 [facility] [place] [address] Hemoglobin 12:01pm Concent Mean June 32.3 g/dL 33-37 MAIN LAB, [address] [place] [address] 2019 [place] [address] Hemoglobin 12:25am Concent Mean April 08, 32.0 g/dL 33-37 MAIN LAB, [address] [place], [place] [address] 2019 [place] [address] Hemoglobin 12:03pm Concent Red Cell August 14.0 % 11.5-14.5 MAIN LAB, [address] [place] [address] 2019 [place] [address] Width 12:01pm Red Cell June 14.1 % 11.5-14.5 MAIN LAB, [address] [place] [address] 2019 [facility] [place] [address] Width 12:25am Red Cell April 08, 14.0 % 11.5-14.5 MAIN LAB, [address] [facility] Distribution [address] [place] [address] Width 12:03pm Platelet August 328 140-440 MAIN LAB, [address] [facility] Count 2019 1000/mm3 [place] [address] 12:01pm Platelet June 276 140-440 MAIN LAB, [address] Count 2019 1000/mm3 [place] [address] 12:25am Platelet April 08, 284 140-440 MAIN LAB, [address] [facility] Count 2019 1000/mm3 [place] [address] 12:03pm Mean Platelet August 10.9 fL 7.4-10.4 MAIN L AB, [address] [facility] Volume [address] [place] [address] 12:01pm Mean Platelet June 10.3 fL 7.4-10.4 MAIN L AB, [address] [facility] Volume 2019 [place] [address] 12:25am Mean Platelet April 08, 10.4 fL 7.4-10.4 MAIN LAB, [address] [place] [address] Volume 2019 [place] [address] 12:03pm Neutrophils August 62.1 % 40.0-72.0 MAIN LAB , [address] [place] [address] (%) (Auto) 2019 [place] [address] 12:01pm Neutrophils June 70.9 % 40.0-72.0 MAIN LAB , [address] [place] [address] (%) (Auto) [address] [place] [address] 12:25am Neutrophils April 08, 60.7 % 40.0-72.0 MAIN LA B, [address] [place] [address] (%) (Auto) 2019 [place] [address] 12:03pm Lymphocytes Parker 29.7 % 17-45 MAIN LAB , [address] [place] [address] (%) (Auto) [address] [place] [address] 12:01pm Lymphocytes June 20.0 % 17-45 MAIN LAB , [address] [place] [address] (%) (Auto) [address] [place] [address] 12:25am Lymphocytes April 08, 28.7 % 17-45 MAIN LA B, [address] [place] [address] (%) (Auto) [address] [place] [address] 12:03pm Monocytes (%) August 5.9 % 3-11 MAIN L AB, [address] [place] [address] (Auto) [address] [place] [address] 12:01pm Monocytes (%) June 6.3 % 3-11 MAIN L AB, [address] [place] [address] (Auto) 2019 [place] [address] 12:25am Monocytes (%) April 08, 6.4 % 3-11 MAIN LAB, [address] [place] [address] (Auto) 2019 [place] [address] 12:03pm Eosinophils August 1.3 % 0-3 MAIN LAB , [address] [place] [address] (%) (Auto) [address] [place] [address] 12:01pm Eosinophils June 1.6 % 0-3 MAIN LAB , [address] [place] [address] (%) (Auto) [address] [place] [address] 12:25am Eosinophils April 08, 2.7 % 0-3 MAIN LA B, [address] [place] [address] (%) (Auto) [address] [place] [address] 12:03pm Basophils (%) August 0.6 % 0-1 MAIN L AB, [address] [place] [address] (Auto) 2019 [place] [address] 12:01pm Basophils (%) June 0.7 % 0-1 MAIN L AB, [address] [place] [address] (Auto) 2019 [place] [address] 12:25am Basophils (%) April 08, 0.7 % 0-1 MAIN LAB, [address] [place] [address] (Auto) 2019 [place] [address] 12:03pm Immature August 0.4 % 0-1 MAIN LAB, [address] [place] [address] Granulocyte % 2019 [place] [address] (Auto) 12:01pm Immature June 0.5 % 0-1 MAIN LAB, [address] [place] [address] Granulocyte % 2019 [place] [address] (Auto) 12:25am Immature April 08, 0.8 % 0-1 MAIN LAB, [address] [place] [address] Granulocyte % 2019 [place] [address] (Auto) 12:03pm Neutrophils # August 7.45 1.4-6.5 MAIN L AB, [address] [place] [address] (Auto) 2019 1000/[place]3 [place] [address] 12:01pm Neutrophils # June 7.89 1.4-6.5 MAIN L AB, [address] [place] [address] (Auto) 2019 1000/mm3 [place] [address] 12:25am Neutrophils # April 08, 5.60 1.4-6.5 MAIN LAB, [address] [place] [address] (Auto) 2019 1000/mm3 [place] [address] 12:03pm Lymphocytes # August 3.56 1.2-3.4 MAIN L AB, [address] [place] [address] (Auto) 2019 1000/[place]3 [place] [address] 12:01pm Lymphocytes # June 2.23 1.2-3.4 MAIN L AB, [address] [place] [address] (Auto) 2019 1000/mm3 [place] [address] 12:25am Lymphocytes # April 08, 2.65 1.2-3.4 MAIN LAB, [address] [place] [address] (Auto) 2019 1000/mm3 [place] [address] 12:03pm Monocytes # August 0.71 0.0-0.8 MAIN LAB , [address] [place] [address] (Auto) 2019 1000/[place]3 [place] [address] 12:01pm Monocytes # June 0.70 0.0-0.8 MAIN LAB , [address] [place] [address] (Auto) 2019 1000/mm3 [place] [address] 12:25am Monocytes # April 08, 0.59 0.0-0.8 MAIN LA B, [address] [place] [address] (Auto) 2019 1000/mm3 [place] [address] 12:03pm Eosinophils # August 0.16 0.0-0.7 MAIN L AB, [address] [place] [address] (Auto) 2019 1000/[place]3 [place] [address] 12:01pm Eosinophils # June 0.18 0.0-0.7 MAIN L AB, [address] [place] [address] (Auto) 2019 1000/mm3 [place] [address] 12:25am Eosinophils # April 08, 0.25 0.0-0.7 MAIN LAB, [address] [place] [address] (Auto) 2019 1000/mm3 [place] [address] 12:03pm Basophils # August 0.07 0.0-0.1 MAIN LAB , [address] [place] [address] (Auto) 2019 1000/[place]3 [place] [address] 12:01pm Basophils # June 0.08 0.0-0.1 MAIN LAB , [address] [place] [address] (Auto) 2019 1000/mm3 [place] [address] 12:25am Basophils # April 08, 0.06 0.0-0.1 MAIN LA B, [address] [place] [address] (Auto) 2019 1000/mm3 [place] [address] 12:03pm Absolute Parker 0.1 0-1 MAIN LAB, [address] [place] [address] Immature 2019 . [facility] [address] Granulocyte 12:01pm (auto Absolute June 0.1 0-1 MAIN LAB, [address] [place] [address] Immature 2019 [place] [address] Granulocyte 12:25am (auto Absolute April 08, 0.1 0-1 MAIN LAB, [address] [place] [address] Immature 2019 [place] [address] Granulocyte 12:03pm (auto Differential August Automated MAIN LA B, [address] [place] [address] Method 2019 . [place] [address] 12:01pm Differential June Automated MAIN LA B, [address] [place] [address] Method 2019 [place] [address] 12:25am Differential April 08, Automated MAIN L AB, [address] [place] [address] Method 2019 [place] [address] 12:03pm Sodium Level August 137 mmol/L 137-145 MAIN L AB, [address] [place] [address] [place] [address] 12:01pm Sodium Level June 138 mmol/L 137-145 MAIN L AB, [address] [place] [address] 2019 [facility] [address] 12:25am Potassium August 4.3 mmol/L 3.6-5.0 MAIN LAB, [address] [place] [address] Level 2019 . [place] [address] 12:01pm Potassium June 3.6 mmol/L 3.6-5.0 MAIN LAB, [address] [place] [address] Level 2019 [facility] [address] 12:25am Chloride August 105 mmol/L 98-107 MAIN LAB, [address] [place] [address] Level 2019 . [place] [address] 12:01pm Chloride June 103 mmol/L 98-107 MAIN LAB, [address] [place] [address] Level 2019 [place] [address] 12:25am Carbon August 26 mmol/L 22-30 MAIN LAB, [address] [place] [address] Dioxide Level 2019 [place] [address] 12:01pm Carbon June 29 mmol/L 22-30 MAIN LAB, [address] [place] [address] Dioxide Level [address] [place] [address] 12:25am Anion Gap August 1503-25 MAIN LAB, [address] [place] [address] [place] [address] 12:01pm Anion Gap June 1503-25 MAIN LAB, [address] [place] [address] 2019 [place] [address] 12:25am Blood Urea August 12 mg/dL 05-05 MAIN LAB, [address] [place] [address] [place] [address] 12:01pm Blood Urea June 13 mg/dL 05-05 MAIN LAB, [address] [place] [address] Nitrogen 2019 [place] [address] 12:25am Creatinine August 0.95 mg/dL 0.66-1.25 MAIN LAB , [address] [place] [address] [place] [address] 12:01pm Creatinine June 0.97 mg/dL 0.66-1.25 MAIN LAB , [address] [place] [address] 2019 [place] [address] 12:25am Glomerular August > 60 >60.0 MAIN LAB, [address] [place] [address] Filtration 2019 mL/[place] [address] Rate Calc 12:01pm Glomerular October > 60 >60.0 MAIN LAB, [address] [place] [address] Filtration 2019 mL/[place] [address] Rate Calc 12:25am Glucose Level August 101 mg/dL 70-100 MAIN L AB, [address] [place] [address] [place] [address] 12:01pm Glucose Level June 125 mg/dL 70-100 MAIN L AB, [address] [place] [address] 2019 [place] [address] 12:25am Calcium Level August 9.4 mg/dL 8.4-10.2 MAIN L AB, [address] [place] [address] [place] [address] 12:01pm Calcium Level June 9.1 mg/dL 8.4-10.2 MAIN L AB, [address] [place] [address] 2019 [place] [address] 12:25am Calcium August 9.6 mg/dL 8.4-10.2 MAIN LAB, [address] [place] [address] Adjusted for 2019 [place] [address] Albumin 12:01pm Calcium June 9.3 mg/dL 8.4-10.2 MAIN LAB, [address] [place] [address] Adjusted for 2019 [place] [address] Albumin 12:25am Total August 0.5 mg/dL 0.2-1.3 MAIN LAB, [address] [place] [address] Bilirubin 2019 [place] [address] 12:01pm Total June 0.3 mg/dL 0.2-1.3 MAIN LAB, [address] [place] [address] Bilirubin 2019 [place] [address] 12:25am Aspartate August 34 U/L MAIN LAB, [address] [place] [address] Amino Transf 2019 [place] [address] (AST/SGOT) 12:01pm Aspartate June 34 U/L MAIN LAB, [address] [place] [address] Amino Transf 2019 [facility] [place] [address] (AST/SGOT) 12:25am Alanine August 50 U/L <50 As of 01/09/20, MAIN L AB, [address] [place] [address] Aminotransfer 2019 the [place] [address] ase 12:01pm Range for (ALT/SGPT) ALT/SGPT for adult patients has been updated. The Reference Range for ALT/SGPT has not been established for patients <18 years of age. Alanine June 48 U/L <50 As of 01/09/20, MAIN L AB, [address] [place] [address] Aminotransfer 2019 the [place] . [place] [address] ase 12:25am Range for (ALT/SGPT) ALT/SGPT for adult patients has been updated. The Reference Range for ALT/SGPT has not been established for patients <18 years of age. Troponin I June < 0.012 0-0.034 Reference Range: MA IN LAB, [address] [place] [address] 2019 ng/mL <0.034 ng/[place] [address] 12:25am Cut-off 0.120 ng/mLThe results of this assay can be falsely decreased in patients who consume Biotin. Total Protein August 7.3 g/dL 6.3-8.2 MAIN L AB, [address] [place] [address] 2019 [facility] [place] [address] 12:01pm Total Protein June 7.4 g/dL 6.3-8.2 MAIN L AB, [address] [place] [address] 2019 [facility] [address] 12:25am Albumin August 4.0 g/dL 3.5-5.0 MAIN LAB, [address] [place] [address] 2019 [facility] [place] [address] 12:01pm Albumin June 4.1 g/dL 3.5-5.0 MAIN LAB, [address] [place] [address] 2019 [facility] [address] 12:25am Cholesterol August 229 mg/dL 59-199 MAIN LAB , [address] [place] [address] 2019 [facility] [address] 12:01pm HDL August 33 mg/dL 40-60 The National MAIN LA B, [address] [place] [address] Cholesterol 2019 Cholesterol [facility] A [facility] [address] 12:01pm Education Program (NCEP) has set the following guidelines (reference values) for cholesterol, HDL:Low HDL: <40 mg/dLNormal: 40-60 mg/dLDesirable: >60 mg/dL LDL August 145.0 0-129 MAIN LAB, [address] [place] [address] Cholesterol 2019 mg/dL [facility] [address] 12:01pm VLDL August 51.0 mg/dL 0-32 MAIN LAB, [address] [place] [address] Cholesterol 2019 [facility] [address] 12:01pm Cholesterol/H August 6.93 0-3.9 MAIN L AB, [address] [place] [address] DL Ratio 2019 [facility] [place] [address] 12:01pm Triglycerides August 255 mg/dL 0-149 MAIN L AB, [address] [place] [address] Level 2019 [facility] [place] [address] 12:01pm Alkaline August 103 U/L 38-126 MAIN LAB, [address] [place] [address] Phosphatase 2019 [facility] [address] 12:01pm Alkaline June 92 U/L 38-126 MAIN LAB, [address] [place] [address] Phosphatase 2019 [place] [address] 12:25am Thyroid August 1.89 mlU/L 0.47-4.68 The results of MAIN LAB, [address] [place] [address] Stimulating 2019 this assay can [facility] [address] Hormone (TSH) 12:01pm be falsely decreased in patients who consume Biotin. SARS-CoV-2 November Negative Negative This test is MAIN Tai AB, 133 [facility] RNA (RT-PCR) 2020 [place] [address] 11:00am under the Food and Drug Administration's (FDA) Emergency Use Authorization (EUA). This test has not been FDA cleared or approved.Not for screening.Nasal swabs are considered an acceptable sample type, however performance with this type has not been established.Nega tive results do not preclude infection and should not be used as the sole basis of treatment or other patient management decisions. Negative results must be combined with clinical observations, patient history, and/or epidemiological information.Fact sheets for providers can be found at: [employer]/70 9165/downloadFac t sheets for patients can be found at: [employer]/35 9807/download Diagnostic Imaging Reports Report Dictated Date/Time Dictated By Status Radiology Report April 08, 2020 10:52am Tori Millan MD co mpleted [facility] ULTRASOUND REPORT PATIENT NAME: YOLANDA FANG 13 [...] 2020 11:17am Tori Millan MD co mpleted [facility] RADIOLOGY REPORT PATIENT NAME: YOLANDA FANG 15 DATE OF : 1975 ATTENDING/ER PHYSICIAN: Carolina perez DIRECTOR COMPLIANCE ER/ATTENDING PHYSICIAN: PRIMARY CARE PHYS: Out Town [...] L5-S1. CONCLUSION: No acute osseous abnormalities. dd: 04/08/20 1117 <Electronically signed by Tori hart MD in OV> 04/08/20 1118 Radiology Report April 08, 2020 11:18am Tori Millan MD co mpleted [facility] RADIOLOGY REPORT PATIENT NAME: YOLANDA FANG 15 DATE OF : 1975 ATTENDING/ER PHYSICIAN: Carolina perez DIRECTOR COMPLIANCE ER/ATTENDING PHYSICIAN: PRIMARY CARE PHYS: Out Town [...] CONCLUSION: 1. No acute osseous abnormalities. dd: 04/08/20 1118 <Electronically signed by Tori hart MD in OV> 04/08/20 1126 Radiology Report April 23, 2020 9:27am Tori Millan MD c ompleted [facility] ULTRASOUND REPORT PATIENT NAME: YOLANDA FANG 15 DATE OF : 1975 ATTENDING/ER PHYSICIAN: Jerome ruiz MD ER/ATTENDING PHYSICIAN: PRIMARY CARE PHYS: Carolina Aguirre NP ADMITTING PHYSICIAN: CONSULTING PHYSICIAN: PROCEDURE DATE: 04/23/20 [...] no varicoceles. CONCLUSION: Improving left epididymoorchitis. dd: 04/23/20926 <Electronically signed by Tori hart MD in OV> 04/23/2031 Radiology Report June 04, 2020 2:34pm Jaye Scott MD completed [facility] ULTRASOUND REPORT PATIENT NAME: YOLANDA FANG 13 [...] 10, 2020 11:49pm [facility]: YOLANDA FANG 13 DATE OF : 1975 ATTENDING PHYSICIAN: PRIMARY CARE PHYS: Carolina Aguirre DIRECTOR COMPLIANCE DICTATING PHYSICIAN: Roscoe Guerrero MD REPORT STATUS: [...] Roscoe Guerrero Confirmed By:Lasha Guerrero 06/11/20 0103 Radiology Report August 23, 2020 12:30pm Mario Guzmán completed [facility] CAT SCAN REPORT PATIENT NAME: YOLANDA FANG 13 DATE OF : 1975 ATTENDING/ER PHYSICIAN: Jj Lopez JR DO ER/ATTENDING PHYSICIAN: PRIMARY CARE PHYS: Carolina Aguirre DIRECTOR COMPLIANCE ADMITTING PHYSICIAN: CONSULTING PHYSICIAN: PROCEDURE DATE: 08/23/20 REPORT STATUS: Signed DICTATING PHYSICIAN: Kenzie Padgett MD , PhD REASON FOR EXAM: Shortness of Breath r/o pe STUDY: CTA Angio Chest w/wo Contrast COMPARISON: Chest radiograph of 019 TECHNIQUE: Serial axial images of the thorax and p ulmonary vasculature were obtained after intravenous contrast administration. Coronal and sagittal reformatted images were made available from the axial data set. MIP images of the pulmonary vasculature were also reviewed. Radiation dose reduction using ADIR (Ad aptive Iterative Reconstruction) was applied. FINDINGS: The contrast bolus timing is suboptimal with 231 HU attenuation in the main pulmonary artery. There are no filling defects within the pulmonary trunk and main branches. Heterogenous contrast is noted in the s egmental pulmonary artery supplying posterior basal segment of the right low er lobe (image 92 series 3) and in the lobar pulmonary artery supplying right l ower lobe (image 74 series 3 and image 123 series 7). No occlusive pulmonary em bolus is identified on coronal and sagittal images. The main pulmonary artery demonstrates normal caliber. No cardiomegaly or pericardial effusion is visualized. There is no right heart strain. The ascending aorta, aortic arch and gr eat vessels show normal caliber and homogeneous opacification. There is no mediastinal, hilar or axill berny lymphadenopathy. The tracheobronchial tree is patent. There is a mild centrilobular emphysema in the lung apices. Diffuse groundglass opacities visualized in both lungs may b e related to expiratory air trapping secondary to small airway disease or air space disease. No evidence of interstitial pulmonary edema. There is no pleural effusion or pneumot horax. Multiple pulmonary nodules are visualiz ed in both lungs: * 7 mm noncalcified subpleural pulmonar y nodule in the left lower lobe on image 180 series 4 * 6 mm and 5 mm pulmonary nodules versu s lymph nodes along the left major fissure on images 122 and 125 series 4 * 7 mm and 8 mm pulmonary nodules versu s lymph nodes along the right major fissure on images 143 and 144 series 4 Osseous structures: Mild dextroconvex c urvature of the thoracic spine and mild spondylotic changes are noted. CONCLUSION: 1. Suboptimal contrast bolus timing strange iting evaluation. 2. No evidence of pulmonary artery embo lism. 3. Multiple pulmonary nodules. According to Fleischner criteria noncon trast CT chest can be ordered at 6-12 months in low risk patient and in 3-6 mo nths in high risk patients. dd: 08/23/20 1230 <Electronically signed by Kenzie hart MD, PhD in OV> 08/23/20 1305 Radiology Report August 27, 2020 3:01pm Tori Millan MD completed [facility] ULTRASOUND REPORT PATIENT NAME: YOLANDA FANG 15 DATE OF : 1975 ATTENDING/ER PHYSICIAN: Jerome ruiz MD ER/ATTENDING PHYSICIAN: PRIMARY CARE PHYS: Jj Lopez JR DO ADMITTING PHYSICIAN: CONSULTING PHYSICIAN: PROCEDURE DATE: 08/27/20 REPORT STATUS: Signed DICTATING PHYSICIAN: Tori Millan MD REASON FOR EXAM: testicular abscess fu F/U TESTICULAR ABSCESS STUDY: US Testicles (Scrotal). TECHNIQUE: grayscale and color flow maddie ges of the testes were obtained. FINDINGS: Ultrasound on 06/04/2020 demonstrated le ft testicular abscess, which measured 0.9 x 0.8 x 0.6 cm. Longitudinal images demonstrate ill-def ined hypoechoic 1.4 x 1.5 x 0.9 cm area abutting tunica albuginea. Color Doppler ultrasound images demonst rate decreased blood flow. The left testicle measures 4.5 x 2.2 x 2.5 cm. The left epididymal head is edematous a nd measures 1.4 x 1.4 cm. Mild hyperemia is noted in the left epi didymal head. Residual scrotal skin edema is noted. The right testicle demonstrates homogen eous echotexture and measures 4.8 x 2.4 x 3 cm. The right epididymal head is normal and measures 0.8 x 1.5 cm Right testicular flow is normal. Small right hydrocele is noted. There are no varicoceles. CONCLUSION: 1. Evolving left testicular abscess and associated left epididymitis as above. 2. Normal right testicle. dd: 08/27/20 1501 <Electronically signed by Tori hart MD in OV> 08/27/20 1518 Advance Directives Advance Directive Response Recorded Date/Time Does patient have an Advanced Directive? No June 25, 2019 1:44pm Do we have a copy on file here at [facility]? No O ctober 2018 1:44pm Pt has a Living Will? No June 25, 2019 1:44pm Do we have a copy on file here at [facility]? No O ctober 2018 1:44pm Pt has a Power of Melter Supervisor [employer]? No June 1:44pm Do we have a copy on file here at [facility]? No O ctober 2018 1:44pm Chief Complaint and Reason for Visit Chief Complaint TESTICLE PAIN FOLLOW UP US RT HIP PAIN; LBP TESTICULAR COMPLAINT New Patient Orchitis and epididymitis Orchitis and epididymitis Chest Pain Other forms of dyspnea follow up Shortness of Breath r/o pe Orchitis and epididymitis Nutrition Concern Follow Up Contact with and (suspected) exposure to COVID-19 Reason for Visit Epididymo-orchitis Epididymo-orchitis Epididymo-orchitis Encounters Encounter Location(s) Arrival/Admit Discharge/Depart Provider(s ) Date Date Departed [facility] April 08, 2020 April 08, 2020 [facility] 12:35am 1:22am Center-Emergency Department Departed [facility] April 08, 2020 April 08, 2020 null Emergency Medical 10:03am 12:39pm Center-Emergency Department Departed [facility] April 08, 2020 April 08, 2020 Manuel Figueroa [facility] 10:06am 10:07am , SRIDEVI [facility] Departed [facility] April 08, 2020 April 08, 2020 [facility] 9:44pm 10:10pm Center-Emergency Department Departed [facility] April 09, 2020 April 09, 2020 Jerome Joshi Physician/Prov Medical 8:23am 9:40am MD ross Office [facility] Visit staffing rn Services Departed [facility] April 23, 2020 April 23, 2020 Jerome younger [facility] 8:43am 8:44am MD [facility] Departed [facility] June 04, June 04, 2020 Jerome cordova [facility] 2019 2:17pm 2:18pm MD [facility] Departed [facility] June 10, 2020 June 11, 2020 [facility] 11:46pm 1:27am Center-Emergency Department Departed [facility] June 18, 2020 June 18, 2020 [facility] 12[facility]10[facility] 12:11pm [facility] Departed [facility] June 29, June 29, 2020 Jerome Joshi Physician/Prov Medical 2019 2:41pm 3:05pm MD ross Office [facility] Visit staffing rn Services Departed [facility] August 20, August 20, 2020 Quinn Lopez JR, [facility] 2019 5:17pm 5:18pm DO [facility] Departed [facility] August 23, August 23, 2020 Quinn Lopez JR, [facility] 2019 12:13pm 12:14pm DO [facility] Departed [facility] August 27August 27, 2020 Jerome Joshi [facility] 2019 3:26pm 3:27pm MD [facility] Departed [facility] September 17, 2020 September 17, 2020 Dedra Eastman Physician/Prov Medical 3:47pm 4:46pm BRENDA ross Office Center-Lif[facility] Visit Medicine Departed [facility] September 24, September 24, 2020 Jerome Joshi Physician/[facility] Medical 2020 12:32pm 12:54pm , ider Office [facility] Visit staffing rn Services Departed [facility] December 07, 2020 December 07, 2020 Melody Robles Clinical Medical 7:45am 7:46am [employer]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 Mental Status Observation Response Date Recorded Comprehension Ability Understands Concepts April 08, 2020 1 2:50am Medical Equipment No Medical Equipment Information available Insurance Providers Guarantor YOLANDA FANG Address [address] [place] [id number] Contact Info. Home Phone: Payer Policy Id Coverage Id Subscriber's Subscriber Id Effective E xpiration Name Date Date [place]ICAID [place] [id number] YOLANDA FANG [id number] [place]F PAY Self N/A Plan of Treatment Epididymo-orchitis Plan Signed - 04/09/20 08:54 Epididymo-orchitis Plan Likely [...] No suggest follow-up with ultrasound 4 months. Likely left epididymal orchitis. He was started [...] Date Information A Timothy Work Phone: [phone] Manuel sanjeev Figueroa NP [employer] [id number] Manuel Aguirre Work Phone: [phone] Manuel sanjeev Figueroa NP [employer] [id number] Jerome Willoughby Work Phone: [facility] Urology MD Adi [address] [facility] , [address] [place] [address] Town Out Future Procedures Future procedure information [...] Date of Observation Smokes tobacco daily (finding) September 24, 2020 11:3 8am Observation Status Observation Response Date of Response Alcohol Use No June 11, 2020 1: 19am alcohol intake frequency holidays/special occasions June 11, 2020 1:19am only Substance/Street Drug Use No June 11 1:19am Substance Use Treatment No June 11 0 1:19am Smoking Status Current every day smoker September 24 12:38pm Assigned Sex Male Vital Signs Vital Reading [...] 08, 2020 12:00pm Respiratory rate 18 /min -April 08, 2020 12:00pm Oxygen saturation by Pulse [...] 2020 8:30am Weight 203.20 kg June 10 0 11:49pm Body Temperature 98.1 [degF] 97.6-99.6 June 10 11:49pm Heart Rate 94 /min 60-100 June 11 1:27am Respiratory rate 16 /min -June 11 1:27am Oxygen saturation by Pulse 99 % 95-100 Octob 2019 1:27am oximetry BP Systolic 124 mm[Hg] 100-140 June 11 1:27am BP Diastolic 75 mm[Hg] 50-85 June 11 1:27am Height 76 [in_i] June 29 2:47pm Body Temperature 97.4 [degF] 97.6-99.6 June 29, 2 020 2:47pm Heart Rate 114 /min 60-100 June 29 2:47pm Respiratory rate 18 /min -June 29, 2 020 2:47pm BP Systolic 118 mm[Hg] 100-140 June 29 2:47pm BP Diastolic 88 mm[Hg] 50-85 June 29 2:47pm Height 76 [in_i] September 17 2:49pm Weight 198.67 kg September 17 2:49pm BMI (Body Mass Index) 53.3 kg/m2 September 2:49pm Height 76 [in_i] September 24 11:36am Body Temperature 97.5 [degF] 97.6-99.6 September 24, 2 021 11:36am Heart Rate 109 /min 60-100 September 24 11:36am Respiratory rate 18 /min -September 24, 2 021 11:36am BP Systolic 132 mm[Hg] 100-140 September 24 11:36am BP Diastolic 88 mm[Hg] 50-85 September 24 11:36am Hospital Discharge Instructions
--- OUTSIDE RECORDS SUMMARY | 2022-03-21 09:31 | XMS_ITS | Continuity of Care Document ---
:1975 Author Organization [facility] Address [address] [place] [address] Care Team Providers Name Role Phone Jj [...] 8:35am Urine Specific April 09, 2020 1.025 [place] (Manual) 8:35am POC Urine RBC April 09, [...] be found at: [facility].gov/Tracour /[id number]/download Fact sheets fo r patients can be found at: [employer].gov/[email or web address] /[email or web address]/download Chief Complaint and Reason for Visit Encounter [...] Atte nding Date Date Provider Departed [facility] January 19, 2021 January 19, 2021 5[facility]03[facility] December 23, December 23, 2020 5:05am [facility] 2020 7[facility] 7:[facility]am [facility] September 24September 24, 2020 Meri bowen [facility] 2020 11:32am 11:54am Kwaku her [facility] 2020 Brett hart [facility] 2020 2:47pm 3:46pm Maty her Office Visit [facility] August 27August 27, 2020 Meri bowen [facility] 2019 2:26pm 2:27pm [facility] August 23August 23, 2020 Casper mercer JR [facility] 2019 11:13am 11:14am [facility] August 20August 20, 2020 [facility] 4:17pm 4:18pm Jj Departed [facility] June 29June 29, 2020 Meri bowen [facility] 2019 2:41pm 3:05pm Kwaku ovider Services Office Visit Departed [facility] June 18, June 18, 2020 Héctorchelsea kellie [facility] 2019 12:10pm 12:11pm [facility] Dep[facility] June 10June 11, 2020 Emergency [facility] Department 2019 11:46pm 1:27am Departed [facility] June 04June 04, 2020 [facility] 2:17pm 2:18pm [facility]April 23, 2020 Adi [facility] 2019 8:43am 8:44am [facility] April 09, 2020 April 09, 2020 9:40 am Adi [facility] 8:23am Kwaku ovider Services Office Visit Departed [facility] April 08, 2020 April 08, 2020 10:10p m [facility] Department 9:44pm Departed [facility] April 08, 2020 April 08, 2020 10:07a [facility] April 08, 2020 April 08, 2020 12:39p m [facility] Department 10:03am Departed [facility] April 08, 2020 April 08, [...]
--- OUTSIDE RECORDS SUMMARY | 2022-03-21 09:31 | XMS_ITS | Continuity of Care Document ---
:1975 Author Organization [facility] Address [address] [place] [address] Phone Care Team Providers Name Role Phone PCP, of Choice Primary Care Provider Unavailable Out of Town, Provider Primary Care Provider Unavailable Carolina Aguirre Attending Provider Carolina Aguirre Primary Care Provider Allergies, Adverse Reactions, Alerts Allergen Type Severity Reaction Last Updated Verified Status cephalexin Allergy unknown April 09, 2020 8:29am Yes Active Medications Medication Status Dose Units Route Sig Qty Days Start End Instruct ions Date Date Oxycodone Active 5 MG PO TWICE A March 8:28am Gabapentin Active 300 MG PO THREE March TIMES A 2019 12:45am Ibuprofen Active 600 MG PO THREE Tonya TIMES A 2019 12:45am Levofloxacin Active 750 MG PO DAILY April 08, 2020 1:03am Problems Active Problems Medical Problem Onset Date Status Epididymo-orchitis Active Inactive/Resolved Problems Medical Problem Onset Date Status Testicular abscess Resolved Vaso-vagal reaction Resolved Left epididymitis Resolved Procedures Procedure Date Performed Status Hip 2 vw Min RT April 08, 2020 10:38am completed Lumbar Spine 2-3 vw April 08, 2020 10:39am completed INTERFACE ELECTROCARDIOGRAM June 25, 2019 1:23pm comple anselmo Chest 2 vw June 25, 2019 1:28pm completed US Testicles (Scrotal) April 08, 2020 12:00am completed Relevant Diagnostic Tests and/or Laboratory Data Laboratory Results Test Date/Time Result Interpretation Reference Result Perfo rming Range Comment Site POC Urinalysis April 09, Clinitek Method 2019 8:35am Auto Urine Color April 09, Yellow (Manual) 2019 8:35am Urine Clarity April 09, Clear (Manual) 2019 8:35am POC Urine April 09, Negative Glucose 2019 8:35am POC Urine April 09, Negative Bilirubin 2019 8:35am Confirmation Urine Ketones April 09, Negative (Manual) 2019 8:35am Urine Specific April 09, 1.025 [place] 2019 8:35am (Manual) POC Urine RBC April 09, Trace 2019 8:35am Intact Urine pH April 09, 5.5 (Manual) 2019 8:35am POC Urine April 09, Negative Protein 2019 8:35am Confirmation Urine April 09, 0.2 Urobilinogen 2019 8:35am (Manual) Urine Nitrite April 09, Negative (Manual) 2019 8:35am Urine April 09, Negative Leukocyte 2019 8:35am Esterase (Manual) White Blood April 08, 9.22 4.8-10.8 MAIN LA B, [address] Count 2019 1000/mm3 [facility] [address] 12:03pm White Blood June 7.25 4.8-10.8 MAIN LAB , [address] [place] [address] Count 2018 1000/mm3 [facility] [address] 1:32pm Red Blood April 08, 5.22 M/mm3 4.70-6.00 MAIN LAB , [address] [place] [address] Street Count 2019 [facility] [address] 12:03pm Red Blood June 5.10 M/mm3 4.70-6.00 MAIN LAB, [address] [place] [address] [facility] [address] 1:32pm Hemoglobin April 08, 14.7 g/dL 14.0-18.0 MAIN LAB , [address] [place] [address] 2019 [place] [address] 12:03pm Hemoglobin June 14.2 g/dL 14.0-18.0 MAIN LAB, [address] [place] [address] 2018 [place] [address] 1:32pm Hematocrit April 08, 45.9 % 42-52 MAIN LAB , [address] [place] [address] 2019 [place] [address] 12:03pm Hematocrit June 43.7 % 42-52 MAIN LAB, [address] [place] [address] 2018 [facility] [place] [address] 1:32pm Mean June 85.7 fL 80.0-94.0 MAIN LAB, [address] [place] [address] Corpuscular 2018 [place] [address] Volume 1:32pm Mean April 08, 87.9 fL 80.0-94.0 MAIN LAB, [address] [place] [address] [address] [place] [address] Volume 12:03pm Mean April 08, 28.2 pg 27-31 MAIN LAB, [address] [place] [address] [address] [place] [address] Hemoglobin 12:03pm Mean June 27.8 pg 27-31 MAIN LAB, [address] [place] [address] Corpuscular 2018 [place] [address] Hemoglobin 1:32pm Mean April 08, 32.0 g/dL 33-37 MAIN LAB, [address] [place] [address] [facility] [address] [place] [address] Hemoglobin 12:03pm Concent Mean June 32.5 g/dL 33-37 MAIN LAB, [address] [place] [address] Corpuscular 2018 [place] [address] Hemoglobin 1:32pm Concent Red Cell April 08, 14.0 % 11.5-14.5 MAIN LAB, [address] [place] [address] 2019 [place] [address] Width 12:03pm Red Cell June 13.6 % 11.5-14.5 MAIN LAB, [address] [place] [address] 2018 [place] [address] Width 1:32pm Platelet Count April 08, 284 140-440 MAIN LAB, [address] [place] [address] 2019 1000/[place]3 [place] [address] 12:03pm Platelet Count June 249 140-440 MAIN LAB, [address] [place] [address] 2018 1000/mm3 [place] [address] 1:32pm Mean Platelet June 10.4 fL 7.4-10.4 MAIN L AB, [address] [place] [address] [place] [address] 1:32pm Mean Platelet April 08, 10.4 fL 7.4-10.4 MAIN LAB, [address] [place] [address] Volume 2019 [place] [address] 12:03pm Neutrophils June 59.3 % 40.0-72.0 MAIN LAB , [address] [place] [address] (%) (Auto) 2018 [place] [address] 1:32pm Neutrophils April 08, 60.7 % 40.0-72.0 MAIN LA B, [address] [place] [address] (%) (Auto) 2019 [facility] [place] [address] 12:03pm Lymphocytes April 08, 28.7 % 17-45 MAIN LA B, [address] [place] [address] (%) (Auto) 2019 [facility] [address] 12:03pm Lymphocytes June 31.0 % 17-45 MAIN LAB , [address] [place] [address] (%) (Auto) 2018 [place] [address] 1:32pm Monocytes (%) June 6.6 % 3-11 MAIN L AB, [address] [place] [address] (Auto) [address] [place] [address] 1:32pm Monocytes (%) April 08, 6.4 % 3-11 MAIN LAB, [address] [place] [address] (Auto) 2019 [place] [address] 12:03pm Eosinophils April 08, 2.7 % 0-3 MAIN LA B, [address] [place] [address] (%) (Auto) 2019 [facility] [address] 12:03pm Eosinophils June 1.8 % 0-3 MAIN LAB , [address] [place] [address] (%) (Auto) [address] [place] [address] 1:32pm Basophils (%) April 08, 0.7 % 0-1 MAIN LAB, [address] [place] [address] (Auto) [address] [place] [address] 12:03pm Basophils (%) June 0.7 % 0-1 MAIN L AB, [address] [place] [address] (Auto) 2018 [place] [address] 1:32pm Immature October 0.6 % 0-1 MAIN LAB, [address] [place] [address] Granulocyte % 2018 [place] [address] (Auto) 1:32pm Immature April 08, 0.8 % 0-1 MAIN LAB, [address] [place] [address] Granulocyte % [address] [place] [address] (Auto) 12:03pm Neutrophils # April 08, 5.60 1.4-6.5 MAIN LAB, [address] [place] [address] (Auto) 2019 1000/mm3 [place] [address] 12:03pm Neutrophils # June 4.30 1.4-6.5 MAIN L AB, [address] [place] [address] (Auto) 2018 1000/[place]3 [place] [address] 1:32pm Lymphocytes # June 2.25 1.2-3.4 MAIN L AB, [address] [place] [address] (Auto) 2018 1000/[place]3 [place] [address] 1:32pm Lymphocytes # April 08, 2.65 1.2-3.4 MAIN LAB, [address] [place] [address] (Auto) 2019 1000/[place]3 [place] [address] 12:03pm Monocytes # June 0.48 0.0-0.8 MAIN LAB , [address] [place] [address] (Auto) 2018 1000/[place]3 [place] [address] 1:32pm Monocytes # April 08, 0.59 0.0-0.8 MAIN LA B, [address] [place] [address] (Auto) 2019 1000/[place]3 [place] [address] 12:03pm Eosinophils # June 0.13 0.0-0.7 MAIN L AB, [address] [place] [address] (Auto) 2018 1000/[place]3 [place] [address] 1:32pm Eosinophils # April 08, 0.25 0.0-0.7 MAIN LAB, [address] [place] [address] (Auto) 2019 1000/[place]3 [place] [address] 12:03pm Basophils # June 0.05 0.0-0.1 MAIN LAB , [address] [place] [address] (Auto) 2018 1000/[place]3 [place] [address] 1:32pm Basophils # April 08, 0.06 0.0-0.1 MAIN LA B, [address] [place] [address] (Auto) 2019 1000/[place]3 [place] [address] 12:03pm Absolute April 08, 0.1 0-1 MAIN LAB, [address] [facility] Immature 2019 [place] [address] Granulocyte 12:03pm (auto Absolute October 0.0 0-1 MAIN LAB, [address] [place] [address] [place] [address] Granulocyte 1:32pm (auto Differential April 08, Automated MAIN L AB, [address] [facility] Method 2019 [place] [address] 12:03pm Differential October Automated MAIN LA B, [address] [place] [address] [place] [address] 1:32pm Sodium Level June 137 mmol/L 137-145 MAIN L AB, [address] [place] [address] [place] [address] 1:32pm Potassium June 3.8 mmol/L 3.6-5.0 MAIN LAB, [address] [place] [address] [place] [address] 1:32pm Chloride Level June 104 mmol/L 98-107 MAIN LAB, [address] [place] [address] [place] [address] 1:32pm Carbon Dioxide June 23 mmol/L 22-30 MAIN LAB, [address] [place] [address] [place] [address] 1:32pm Anion Gap June 10 7-16 MAIN LAB, [address] [place] [address] [place] [address] 1:32pm Blood Urea June 12 mg/dL 8-26 MAIN LAB, [address] [place] [address] [place] [address] 1:32pm Creatinine June 0.82 mg/dL 0.66-1.25 MAIN LAB , [address] [place] [address] [place] [address] 1:32pm Glomerular June > 60 mL/min >60.0 MAIN LA B, [address] [place] [address] [place] [address] Rate Calc 1:32pm Glucose Level June 99 mg/dL 70-100 MAIN L AB, [address] [place] [address] [place] [address] 1:32pm Calcium Level June 8.5 mg/dL 8.4-10.2 MAIN L AB, [address] [place] [address] [place] [address] 1:32pm Troponin I June < 0.012 0-0.034 Reference MAIN LAB, [address] [facility] 2018 ng/mL Range: [place] [address] 1:32pm <0.034 ng/mL AMI Cut-off 0.120 ng/mLTh e results of this assay can be falsely decreased in patients who consume Biotin. Diagnostic Imaging Reports Report Dictated Date/Time Dictated By Status Electrocardiogram June 25, 2019 1:07pm Ulises Young MD c ompleted [facility] EKG PATIENT NAME: YOLANDA FANG DATE OF : 1975 ATTENDING PHYSICIAN: PRIMARY CARE PHYS: DICTATING PHYSICIAN: Ulises Young MD REPORT STATUS: Signed Test Reason : Blood Pressure : / mmHG Vent. Rate : 093 BPM Atrial Rate : 093 BPM P-R Int : 164 ms QRS Dur : 088 ms QT Int : 358 ms P-R-T Axes : 004 047 03 0 degrees QTc Int : 445 ms Normal sinus rhythm Low voltage QRS Borderline ECG Confirmed by Ulises Young ([id number]) on 1:39:58 PM Referred By: Ulises Young Confirmed By:Mario Young 06/25/19 1340 Radiology Report June 25, 2019 1:52pm Mario Gotti completed [facility] RADIOLOGY REPORT PATIENT NAME: YOLANDA FANG DATE OF : 1975 ATTENDING/ER PHYSICIAN: ER/ATTENDING PHYSICIAN: Mario Nunez PRIMARY CARE PHYS: No Pcp ADMITTING PHYSICIAN: CONSULTING PHYSICIAN: PROCEDURE DATE: 06/25/19 REPORT STATUS: Signed DICTATING PHYSICIAN: Jaye Scott MD REASON FOR EXAM: chest pain STUDY: Chest 2 vw CLINICAL HISTORY: Chest pain COMPARISON: None. FINDINGS/IMPRESSION: The cardiomediastinal silhouette is wit hin normal limits. Linear scarring/atelectasis in the ling ya. There is no focal consolidation, pulmon berny edema, pleural effusion or pneumothorax. The osseous structures are unremarkable . dd: 06/25/19 1352 <Electronically signed by Jaye reveles MD in OV> 06/25/19 1353 Radiology Report April 08, 2020 10:52am Tori Millan MD co mpleted [facility] ULTRASOUND REPORT PATIENT NAME: YOLANDA FANG [...] 2020 11:17am Tori Millan MD co mpleted [facility] RADIOLOGY REPORT PATIENT NAME: YOLANDA FANG 15 DATE OF : 1975 ATTENDING/ER PHYSICIAN: Carolina perez QUALITY ENG ER/ATTENDING PHYSICIAN: PRIMARY CARE PHYS: Out Town [...] L5-S1. CONCLUSION: No acute osseous abnormalities. dd: 04/08/201116 <Electronically signed by Tori hart MD in OV> 04/08/20 1118 Radiology Report April 08, 2020 11:18am Tori Millan MD co mpleted [facility] RADIOLOGY REPORT PATIENT NAME: YOLANDA FANG 13 DATE OF : 1975 ATTENDING/ER PHYSICIAN: Carolina perez QUALITY ENG ER/ATTENDING PHYSICIAN: PRIMARY CARE PHYS: Out Town [...] Tori hart MD in OV> 04/08/20 1126 Advance Directives Advance Directive Response Recorded Date/Time Does patient have an Advanced Directive? No June 25, 2019 1:44pm Do we have a copy on file here at [facility]? No O ctober 2018 1:44pm Pt has a Living Will? No June 25, 2019 1:44pm Do we have a copy on file here at [facility]? No O ctober 2018 1:44pm Pt has a Power of Commercial Lending Relationship Manager? No June 1:44pm Do we have a copy on file here at [facility]? No O ctober 2018 1:44pm Chief Complaint and Reason for Visit Chief Complaint Back Up TESTICLE PAIN FOLLOW UP US RT HIP PAIN; LBP TESTICULAR COMPLAINT New Patient Reason for Visit Epididymo-orchitis Encounters Encounter Location(s) Arrival/Admit Date Discharge/Depart Date Provider(s) Departed [facility] June 25, 2019 June 25, 2019 monica bonilla [facility] 1:09pm 3:45pm Group-Emergency Department Departed [facility] April 08, 2020 April 08, 2020 null Emergency Medical 12:35am 1:22am Group-Emergency Department Departed [facility] April 08, 2020 April 08, 2020 null Emergency Medical 10:03am 12:39pm Group-Emergency Department Departed [facility] April 08, 2020 April 08, 2020 Manuel [facility] 10:06am 10:07am Les Figueroa [facility] Departed [facility] April 08, 2020 April 08, 2020 null Emergency Medical 9:44pm 10:10pm Group-Emergency Department Departed [facility] April 09, 2020 April 09, 2020 Jerome Willoughby Physician/Prov Medical 8:23am 9:40am MD Adi ider Office Group-[facility] Visit n Urology Services Recent Diagnosis Onset Date Epididymo-orchitis Assessments Diagnosis Onset Date Resolution Status Epididymo-orchitis acute Functional Status Observation Response Date Recorded Living Situation Home June 25, 2019 3 :45pm Living Situation Home April 08, 2020 9:51 pm With Spouse April 08, 2020 9:51 pm Living Situation Home April 08, 2020 12:3 7pm Living Situation Home April 08, 2020 1:22 am With Spouse April 08, 2020 1:22 am Goals Goals may be documented in an alternate section. Mental Status Observation Response Date Recorded Comprehension Ability Understands Concepts April 08, 2020 1 2:50am Medical Equipment No Medical Equipment Information available Insurance Providers Guarantor YOLANDA FANG Address [address] [place] [address] Contact Info. Home Phone: Payer Policy Id Coverage Id Subscriber's Subscriber Id Effective E xpiration Name Date Date [place]ICA[place] [id number] YOLANDA FANG [id number] [place] [employer] PAY Self N/A Plan of Treatment [...] chills and not feeling well in general. Future Tests Future scheduled test information is unavailable Pending Tests Pending diagnostic test information is unavailable Future Visits Future appointment information is unavailable Referrals to Other Providers Reason for Referral Start Provider Provider Contact Provider Address Referral Date Information Pcp Estelita Aguirre Work Phone: [address] Manuel Figueroa NP [facility] [address] Jerome Willoughby Work Phone: [facility] Urology MD Adi [address] [facility] , [facility] A [facility] [address] [address] Future Procedures Future procedure information is unavailable Future Medications Future medication information is unavailable Patient Instructions Epididymitis (DC) COVID 19 General Instructions- decrease the spread of coronavirus ([facility]) COVID 19 General Instructions- decrease the spread of coronavirus ([facility]) Social History Smoking Status Status Date of Observation Smokes tobacco daily (finding) April 09, 2020 8:34am Observation Status Observation Response Date of Response Alcohol Use No April 08, 2020 9:51 pm alcohol intake frequency holidays/special occasions only [place] 2019 9:51pm Substance/Street Drug Use No April 08 0 9:51pm Substance Use Treatment No April 08, 2020 9:51pm Smoking Status Current every day smoker April 09, 2020 8:34am Assigned Sex Male Vital Signs Vital Reading Result Reference Range Collection Date/ Time Weight 190.96 kg June 25 1:13pm Body Temperature 97.4 [degF] 97.6-99.6 June 25, 2 019 1:13pm Heart Rate 98 /min 60-100 June 25 3:45pm Respiratory rate 20 /min -June 25, 019 3:45pm Oxygen saturation by Pulse 98 % 95-100 Oct2018 3:45pm oximetry BP Systolic 130 mm[Hg] 100-140 June 25 3:45pm BP Diastolic 72 mm[Hg] 50-85 June 25 3:45pm Weight 199.58 kg April 08, 2020 12:38am Body Temperature 98.0 [degF] 97.6-99.6 April 08, 2020 12:38am Heart Rate 109 /min 60-100 April 08, 2020 1:15am Respiratory rate 20 /min -April 08, 2020 1:15am Oxygen saturation by Pulse 98 % 95-100 April 08, 2020 1:15am oximetry BP Systolic 156 mm[Hg] 100-140 April 08, 2020 1:15am BP Diastolic 98 mm[Hg] 50-85 April 08, 2020 1:15am Weight 199.58 kg April 08, 2020 12:00pm Body Temperature 98.2 [degF] 97.6-99.6 April 08, 2020 12:00pm Heart Rate 106 /min 60-100 April 08, 2020 12:00pm Respiratory rate 18 /min 09-02April 08, 2020 12:00pm Oxygen saturation by Pulse [...] 09, 2020 8:30am Respiratory rate 20 /min 12-24 April 09, 2020 8:30am BP Systolic 128 mm[Hg] 100-140 April 09, 2020 8:30am BP Diastolic 86 mm[Hg] 50-85 April 09, 2020 8:30am BMI (Body Mass Index) 53.5 kg/m2 April 09, 2020 8:30am Hospital Discharge Instructions Additional Instructions Be sure to drink plenty of fluids. Return to the ER for any worsening symptoms or concerns.
--- OUTSIDE RECORDS SUMMARY | 2022-03-21 09:31 | XMS_ITS | Continuity of Care Document ---
:1975 Author Organization [facility] Address [address] [place] [address] Care Team Providers Name Role Phone Jj [...] 8:35am Urine Specific April 09, 2020 1.025 [place] (Manual) 8:35am POC Urine RBC April 09, [...] fo r providers can be found at: [employer]/myTips /093286/download Fact sheets fo r patients can be found at: [employer]/myTips /029252/download Chief Complaint and Reason for Visit Encounter [...] Date Date Provider Departed [facility] Emergency February 22, 2021 February 22, 2021 1:38pm [facility] Department 12:47pm Departed [facility] February 10, 2021 February 10, 2021 3:07pm Adi [facility] Urology 2:44pm [facility] Services Office Visit Departed [facility] DI February 01, 2021 February 01, 2021 3:30pm [facility] January 25, 2021 January 25, 2021 3:09pm Fabiola staton Surgical [facility] Services 12:06pm [facility] Departed [facility] January 19, 2021 January 19, 2021 [facility] Renzo Dep[facility] Emergency December 23, December 23, 2020 5:05am [facility] Department 2020 3:24am Departed [facility] Curbside December 07, December 07, 2020 7:46am [facility] 2020 7:45am Melody Departed [facility] September 24, September 24, 2020 Meri bowen, [facility]rology 2020 11:32am 11:54am Kwaku ovider Services Office Visit Departed [facility] September 17, September 17, 2020 Brett hart [facility] Medicine 2020 2:47pm 3:46pm Maty ovider Office Visit Departed [facility] August 27August 27, 2020 Meri bowen [facility] 2019 2:26pm 2:27pm [facility] 23August 23, 2020 [facility] 11:13am 11:14am [facility] Dep[facility]ed [facility] August 20August 20, 2020 [facility] 4[facility]17[facility] 4:18pm [facility] 29June 29[facility] 2020 Meri bowen, [facility] 2019 2:41pm 3:05pm Kwaku ovider Services Office Visit Departed [facility] June 18June 18, 2020 Arianne hopkins [facility] 2019 12:10pm 12:11pm [facility] June 10June 11, 2020 [facility] Department 2019 11:46pm [facility] June 04June 04, 2020 [facility] 2019 2:17pm 2:18pm [facility] April 23April 23, 2020 Adi [facility] 2019 8:43am 8:44am [facility] Departed [facility] April 09, 2020 April 09, 2020 9:40 am Adi [facility] 8:23am Kwaku ovider Services Office Visit Departed [facility] Emergency April 08, 2020 April 08, 2020 10:10p m [facility] Department 9:44pm Departed [facility] April 08, 2020 April 08, 2020 10:07a [facility] 10:06am [facility] Departed [facility] Emergency [...] Care Instructions High Blood Pressure (DC) Conjunctivitis ([facility]) ED COVID 19 General Instructions- decrease [...]
--- OUTSIDE RECORDS SUMMARY | 2022-03-21 09:31 | XMS_ITS | Continuity of Care Document ---
:[address] [facility] Address [address] [place] [address] Phone Care Team Providers Name Role Phone PCP, of Choice Primary Care Provider Unavailable Out of Town, Provider Primary Care Provider Unavailable Carolina Aguirre Attending Provider Carolina Aguirre Primary Care Provider Allergies, Adverse Reactions, Alerts Allergen Type Severity Reaction Last Updated Verified Status cephalexin Allergy June 25, 2019 1:17pm Yes Active Medications Medication Status Dose Units Route Sig Qty Days Start End Instruct ions Date Date Gabapentin Active 300 MG PO March TIMES 2019 12:45am Ibuprofen Active 600 MG PO THREE March TIMES 2019 12:45am Levofloxacin Active 750 MG PO DAILY April 08, 2020 1:03am Problems Inactive/Resolved Problems Medical Problem Onset Date Status [...] Reference Result Perfo rming Range Comment Site White Blood April 08, 9.22 4.8-10.8 MAIN LA B, [address] [place] [address] 2019 1000/mm3 [facility] [address] 12:03pm White Blood June 7.25 4.8-10.8 MAIN LAB , [address] [place] [address] 2018 1000/mm3 [place] [address] 1:32pm Red Blood April 08, 5.22 M/mm3 4.70-6.00 MAIN LAB , [address] [place] [address] 2019 [facility] [address] 12:03pm Red Blood June 5.10 M/mm3 4.70-6.00 MAIN LAB, [address] [place] [address] 2018 [facility] [place] [address] 1:32pm Hemoglobin April 08, 14.7 g/dL 14.0-18.0 MAIN LAB , [address] [place] [address] 12:03pm Hemoglobin June 14.2 g/dL 14.0-18.0 MAIN LAB, [address] [place] [address] 2018 [facility] [place] [address] 1:32pm Hematocrit April 08, 45.9 % 42-52 MAIN LAB , [address] [place] [address] 12:03pm Hematocrit June 43.7 % 42-52 MAIN LAB, [address] [place] [address] 2018 [facility] [place] [address] 1:32pm Mean April 08, 87.9 fL 80.0-94.0 MAIN LAB, [address] [place] [address] Corpuscular 2019 [place] [address] Volume 12:03pm Mean June 85.7 fL 80.0-94.0 MAIN LAB, [address] [place] [address] Corpuscular 2018 [place] [address] Volume 1:32pm Mean April 08, 28.2 pg 27-31 MAIN LAB, [address] [place] [address] Corpuscular 2019 [place] [address] Hemoglobin 12:03pm Mean June 27.8 pg 27-31 MAIN LAB, [address] [place] [address] Corpuscular 2018 [place] [address] Hemoglobin 1:32pm Mean June 32.5 g/dL 33-37 MAIN LAB, [address] [place] [address] Corpuscular [address] [place] [address] Hemoglobin 1:32pm Concent Mean April 08, 32.0 g/dL 33-37 MAIN LAB, [address] [place] [address] Corpuscular [address] [place] [address] Hemoglobin 12:03pm Concent Red Cell June 13.6 % 11.5-14.5 MAIN LAB, [address] [place] [address] [place] [address] Width 1:32pm Red Cell April 08, 14.0 % 11.5-14.5 MAIN LAB, [address] [place] [address] Distribution 2019 [place] [address] Width 12:03pm Platelet Count April 08, 284 140-440 MAIN LAB, [address] [place] [address] 2019 1000/[place]3 [place] [address] 12:03pm Platelet Count June 249 140-440 MAIN LAB, [address] [place] [address] 2018 1000/mm3 [place] [address] 1:32pm Mean Platelet June 10.4 fL 7.4-10.4 MAIN L AB, [address] [place] [address] [place] [address] 1:32pm Mean Platelet April 08, 10.4 fL 7.4-10.4 MAIN LAB, [address] [place] [address] Volume 2019 [place] [address] 12:03pm Neutrophils June 59.3 % 40.0-72.0 MAIN LAB , [address] [place] [address] (%) (Auto) 2018 [place] [address] 1:32pm Neutrophils April 08, 60.7 % 40.0-72.0 MAIN LA B, [address] [place] [address] (%) (Auto) 2019 [place] [address] 12:03pm Lymphocytes April 08, 28.7 % 17-45 MAIN LA B, [address] [place] [address] (%) (Auto) 2019 [place] [address] 12:03pm Lymphocytes June 31.0 % 17-45 MAIN LAB , [address] [place] [address] (%) (Auto) 2018 [place] [address] 1:32pm Monocytes (%) April 08, 6.4 % 3-11 MAIN LAB, [address] [place] [address] (Auto) 2019 [place] [address] 12:03pm Monocytes (%) October 6.6 % 3-11 MAIN L AB, [address] [place] [address] (Auto) 2018 [place] [address] 1:32pm Eosinophils June 1.8 % 0-3 MAIN LAB , [address] [place] [address] (%) (Auto) 2018 [place] [address] 1:32pm Eosinophils April 08, 2.7 % 0-3 MAIN LA B, [address] [place] [address] (%) (Auto) [address] [place] [address] 12:03pm Basophils (%) April 08, 0.7 % 0-1 MAIN LAB, [address] [place] [address] (Auto) 2019 [place] [address] 12:03pm Basophils (%) October 0.7 % 0-1 MAIN L AB, [address] [place] [address] (Auto) 2018 [place] [address] 1:32pm Immature April 08, 0.8 % 0-1 MAIN LAB, [address] [place] [address] Granulocyte % 2019 [place] [address] (Auto) 12:03pm Immature October 0.6 % 0-1 MAIN LAB, [address] [place] [address] Granulocyte % 2018 [place] [address] (Auto) 1:32pm Neutrophils # June 4.30 1.4-6.5 MAIN L AB, [address] [place] [address] (Auto) 2018 1000/[place]3 [place] [address] 1:32pm Neutrophils # April 08, 5.60 1.4-6.5 MAIN LAB, [address] [place] [address] (Auto) 2019 1000/[place]3 [place] [address] 12:03pm Lymphocytes # April 08, 2.65 1.2-3.4 MAIN LAB, [address] [place] [address] (Auto) 2019 1000/[place]3 [place] [address] 12:03pm Lymphocytes # June 2.25 1.2-3.4 MAIN L AB, [address] [place] [address] (Auto) 2018 1000/[place]3 [place] [address] 1:32pm Monocytes # June 0.48 0.0-0.8 MAIN LAB , [address] [place] [address] (Auto) 2018 1000/[place] [address] 1:32pm Monocytes # April 08, 0.59 0.0-0.8 MAIN LA B, [address] [place] [address] (Auto) 2019 1000/[place]3 [place] [address] 12:03pm Eosinophils # June 0.13 0.0-0.7 MAIN L AB, [address] [place] [address] (Auto) 2018 1000/[place]3 [place] [address] 1:32pm Eosinophils # April 08, 0.25 0.0-0.7 MAIN LAB, [address] [place] [address] (Auto) 2019 1000/[place]3 [place] [address] 12:03pm Basophils # June 0.05 0.0-0.1 MAIN LAB , [address] [place] [address] (Auto) 2018 1000/[place] [address] 1:32pm Basophils # April 08, 0.06 0.0-0.1 MAIN LA B, [address] [place] [address] (Auto) 2019 1000/[place]3 [place] [address] 12:03pm Absolute April 08, 0.1 0-1 MAIN LAB, [address] [place] [address] Immature 2019 [place] [address] Granulocyte 12:03pm (auto Absolute June 0.0 0-1 MAIN LAB, [address] [place] [address] [place] [address] Granulocyte 1:32pm (auto Differential June Automated MAIN LA B, [address] [place] [address] [place] [address] 1:32pm Differential April 08, Automated MAIN L AB, [address] [place] [address] Method 2019 [place] [address] 12:03pm Sodium Level June 137 mmol/L 137-145 MAIN L AB, [address] [place] [address] [place] [address] 1:32pm Potassium June 3.8 mmol/L 3.6-5.0 MAIN LAB, [address] [place] [address] [place] [address] 1:32pm Chloride Level June 104 mmol/L 98-107 MAIN LAB, [address] [place] [address] [place] [address] 1:32pm Carbon Dioxide June 23 mmol/L 22-30 MAIN LAB, [address] [place] [address] [place] [address] 1:32pm Anion Gap June 10 7-16 MAIN LAB, [address] [place] [address] [place] [address] 1:32pm Blood Urea June 12 mg/dL 8-26 MAIN LAB, [address] [facility] Nitrogen [address] [place] [address] 1:32pm Creatinine June 0.82 mg/dL 0.66-1.25 MAIN LAB , [address] [place] [address] [place] [address] 1:32pm Glomerular June > 60 mL/min >60.0 MAIN LA B, [address] [facility] Filtration [address] [place] [address] Rate Calc 1:32pm Glucose Level June 99 mg/dL 70-100 MAIN L AB, [address] [place] [address] [place] [address] 1:32pm Calcium Level June 8.5 mg/dL 8.4-10.2 MAIN L AB, [address] [place] [address] [place] [address] 1:32pm Troponin I June < 0.012 0-0.034 Reference MAIN LAB, [address] [place] [address] 2018 ng/mL Range: [place] [address] 1:32pm <0.034 ng/mL AMI Cut-off 0.120 ng/mLTh e results of this assay can be falsely decreased in patients who consume Biotin. 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 No June 25, 2019 1:44pm Do we [place] a [place] [facility] [place] No O ctober 2018 1:44pm Pt has a Living Will? No June 25, 2019 1:44pm Do we [place] a [place] [facility] No O ctober 2018 1:44pm Pt has a Power of Chick Room Supervisor? No June 1:44pm Do we have a [place] [facility] No O ctober 2018 1:44pm Chief Complaint and Reason for Visit Chief Complaint Back Up TESTICLE PAIN FOLLOW UP US RT HIP PAIN; LBP TESTICULAR COMPLAINT Encounters Encounter Location(s) Arrival/Admit Date Discharge/Depart Date Provider(s) Departed [facility] June 25, 2019 June 25, 2019 [facility] 1:09pm 3:45pm Center-Emergency Department Departed [facility] April 08, 2020 April 08, 2020 [facility] 12:35am 1:22am Center-Emergency Department Departed [facility] April 08, 2020 April 08, 2020 [facility] 10:03am 12:39pm Center-Emergency Department Departed [facility] April 08, 2020 April 08, 2020 Manuel [facility] 10:06am 10:07am SRIDEVI Figueroa [facility] Departed [facility] April 08, 2020 April 08, 2020 [facility] 9:44pm 10:10pm Center-Emergency Department Assessments No Assessments Information Available Functional Status Observation Response Date Recorded Living [...] available Insurance Providers Guarantor YOLANDA FANG Address [address] [place] [id number] Contact Info. Home Phone: Payer Policy Id Coverage Id Subscriber's Subscriber Id Effective E xpiration Name Date Date MEDICAID OF Verified Verified Verified [place] SELF PA[place] Self N/A Plan of Treatment Future Tests Future scheduled test information is unavailable Pending Tests Pending diagnostic test information is unavailable Future Visits Future appointment information is unavailable Referrals to Other Providers Reason for Referral Start Provider Provider Contact Provider Address Referral Date Information Pcp Estelita Aguirre Work Phone: [address] Manuel Figueroa NP [facility] [address] [address] Work Phone: [facility] [place]rology MD Adi [address] [facility] , [facility] [address] [address] Future Procedures Future procedure information is unavailable Future Medications Future medication information is unavailable Patient Instructions Epididymitis (DC) COVID 19 General Instructions- decrease the spread of coronavirus ([facility] COVID 19 General Instructions- decrease the spread of coronavirus [place] Social History Smoking Status Status Date of Observation Smokes tobacco daily (finding) April 08, 2020 9:51pm Observation Status Observation Response Date of Response Alcohol Use No April 08, 2020 9:51 pm alcohol intake frequency holidays/special occasions only [place] 2019 9:51pm Substance/Street Drug Use No April 08 0 9:51pm Substance Use Treatment No April 08, 2020 9:51pm Smoking Status Current every day smoker April 08, 2020 9:51pm Assigned Sex Male Vital Signs Vital Reading Result Reference Range Collection Date/ Time Weight 190.96 kg June 25 1:13pm Body Temperature 97.4 [degF] 97.6-99.6 June 25, 2 019 1:13pm Heart Rate 98 /min 60-100 June 25 3:45pm Respiratory rate 20 /min -June 25, 019 3:45pm Oxygen saturation by Pulse 98 % 95-100 Octob 2018 3:45pm oximetry BP Systolic 130 mm[Hg] 100-140 [...] 96 mm[Hg] 50-85 April 08, 2020 9:45pm Hospital Discharge Instructions Additional Instructions Be sure to drink plenty of fluids. Return to the ER for any worsening symptoms or concerns.
--- OUTSIDE RECORDS SUMMARY | 2022-03-21 09:31 | XMS_ITS | Continuity of Care Document ---
:1975 Author Organization [facility] Address [address] [place] [address] Phone Care Team Providers Name Role Phone Out of Town, Provider Primary Care Provider Unavailable Carolina Aguirre Attending Provider Carolina Aguirre Primary Care Provider Kwaku Joshi Attending Provider Carmen Bañuelos Attending Provider Jj Lopez JR Attending Provider Jj Lopez JR Primary Care Provider Melody Robles Attending Provider Renzo Sweet Attending Provider Allergies, Adverse Reactions, Alerts Allergen Type Severity Reaction Last Updated Verified Status cephalexin Allergy gi upset February 10, 2021 2:48pm Yes Active Medications Medication Status Dose Units Route Directions Qty Days Start End Ins tructions Date Date Levofloxacin Discontin 500 MG PO DAILY 10 Decembe Decemb ued , er 2019, 9:34am 2019 1:01am Gabapentin [...] abscess Resolved Heart palpitations Resolved Palpitations Resolved Vaso-vagal reaction Resolved Left epididymitis Resolved Procedures Procedure Date Performed Status CTA Angio Chest w/wo Contrast August 23, 2020 12:30pm co mpleted US Testicles (Scrotal) June 04, 2020 2:30pm completed US Testicles (Scrotal) April 23, 2020 8:30am completed Hip 2 vw Min RT April 08, 2020 10:38am completed Lumbar Spine 2-3 vw April 08, 2020 10:39am completed DIAGNOSTIC COLONOSCOPY January 25, 2021 active INTERFACE ELECTROCARDIOGRAM December 23, 2020 3:38am complete d US Testicles (Scrotal) February 01, 2021 3:30pm completed US Testicles (Scrotal) August 27, 2020 [...] 09, Yellow (Manual) 2019 8:35am Urine Clarity Tonya 31st, Clear (Manual) 2019 8:35am POC Urine April 09, Negative Glucose 2019 8:35am POC Urine April 09, Negative Bilirubin 2019 Confirmation 8:35am Urine Ketones April 09, Negative (Manual) 2019 8:35am Urine April 09, 1.025 Specific 2020 [place] 8:35am (Manual) POC Urine RBC April 09, Trace 2019 Intact 8:35am Urine pH April 09, 5.5 (Manual) 2019 8:35am POC Urine April 09, Negative Protein 2019 Confirmation 8:35am Urine April 09, 0.2 Urobilinogen 2019 (Manual) 8:35am Urine Nitrite April 09, Negative (Manual) 2019 8:35am Urine April 09, Negative Leukocyte 2019 Esterase 8:35am (Manual) White Blood December 8.70 4.8-10.8 MAIN LAB , [address] Count 2020 1000/mm3 [facility] [facility] [place] [address] 3:40am White Blood August 12.00 4.8-10.8 MAIN LAB , [address] Count 2019 1000/mm3 [place] [facility] [place] [address] 12:01pm White Blood June 11.14 4.8-10.8 MAIN LAB , [address] Count 2019 1000/mm3 [place] [address] 12:25am White Blood April 08, 9.22 4.8-10.8 MAIN LA B, [address] Count 2019 1000/mm3 [place] [address] 12:03pm Red Blood December 5.05 M/mm3 4.70-6.00 MAIN LAB, [address] Count [address] [place] [address] 3:40am Red Blood August 5.37 M/mm3 4.70-6.00 MAIN LAB, [address] Count [address] [place] [address] 12:01pm Red Blood June 5.37 M/mm3 4.70-6.00 MAIN LAB, [address] Count 2019 [place] [address] 12:25am Red Blood April 08, 5.22 M/mm3 4.70-6.00 MAIN LAB , [address] Count 2019 [place] [address] 12:03pm Hemoglobin December 14.3 g/dL 14.0-18.0 MAIN LAB, [address] [place] [address] [place] [address] 3:40am Hemoglobin August 15.1 g/dL 14.0-18.0 MAIN LAB, [address] [place] [address] [place] [address] 12:01pm Hemoglobin June 15.1 g/dL 14.0-18.0 MAIN LAB, [address] [place] [address] [address] [place] [address] 12:25am Hemoglobin April 08, 14.7 g/dL 14.0-18.0 MAIN LAB , [address] [place] [address] 2019 [place] [address] 12:03pm Hematocrit December 43.3 % 42-52 MAIN LAB, [address] [place] [address] [place] [address] 3:40am Hematocrit August 47.3 % 42-52 MAIN LAB, [address] [place] [address] [place] [address] 12:01pm Hematocrit June 46.7 % 42-52 MAIN LAB, [address] [place] [address] [address] [place] [address] 12:25am Hematocrit April 08, 45.9 % 42-52 MAIN LAB , [address] [place] [address] 2019 [place] [address] 12:03pm Mean December 85.7 fL 80.0-94.0 MAIN LAB, [address] [place] [address] [place] [address] Volume 3:40am Mean August 88.1 fL 80.0-94.0 MAIN LAB, [address] [place] [address] [place] [address] Volume 12:01pm Mean June 87.0 fL 80.0-94.0 MAIN LAB, [address] [place] [address] [place] [address] Volume 12:25am Mean April 08, 87.9 fL 80.0-94.0 MAIN LAB, [address] [place] [address] [address] [place] [address] Volume 12:03pm Mean December 28.3 pg 27-31 MAIN LAB, [address] [place] [address] [place] [address] Hemoglobin 3:40am Mean August 28.1 pg 27-31 MAIN LAB, [address] [place] [address] 2019 [place] [place] [address] Hemoglobin 12:01pm Mean June 28.1 pg 27-31 MAIN LAB, [address] [facility] Corpuscular 2019 [place] [address] Hemoglobin 12:25am Mean April 08, 28.2 pg 27- MAIN LAB, [address] [facility] [employer] 2019 [place] [address] Hemoglobin 12:03pm Mean December 33.0 g/dL MAIN LAB, [address] [facility] [employer]uscular 2020 [place] [address] Hemoglobin 3:40am Concent Mean August 31.9 g/dL MAIN LAB, [address] [facility] [employer] 2019 [place] [address] Hemoglobin 12:01pm Concent Mean June 32.3 g/dL MAIN LAB, [address] [place], [place] [address]cular 2019 [facility] [place] [address] Hemoglobin 12:25am Concent Mean April 08, 32.0 g/dL MAIN LAB, [address] [facility] [employer]uscular 2019 [place] [address] Hemoglobin 12:03pm Concent Red Cell December 13.9 % 11.5-14.5 MAIN LAB, [address] [facility] Distribution 2020 [place] [place] [address] Width 3:40am Red Cell August 14.0 % 11.5-14.5 MAIN LAB, [address] [place] [address] Distribution 2019 [place] [address] Width 12:01pm Red Cell June 14.1 % 11.5-14.5 MAIN LAB, [address] [place] [address] Distribution 2019 [place] [address] Width 12:25am Red Cell April 08, 14.0 % 11.5-14.5 MAIN LAB, [address] [facility] 2019 [place] [address] Width 12:03pm Platelet December 258 140-440 MAIN LAB, [address] [place] [address] Count 2020 1000/[place]3 [place] [address] 3:40am Platelet August 328 140-440 MAIN LAB, [address] [place] [address] Count 2019 1000/[place]3 [place] [address] 12:01pm Platelet June 276 140-440 MAIN LAB, [address] [facility] Count 2019 1000/mm3 [place] [address] 12:25am Platelet April 08, 284 140-440 MAIN LAB, [address] [place] [address] Count 2019 1000/mm3 [place] [address] 12:03pm Mean Platelet December 10.1 fL 7.4-10.4 MAIN L AB, [address] [place] [address] [place] [address] 3:40am Mean Platelet August 10.9 fL 7.4-10.4 MAIN L AB, [address] [place] [address] [place] [address] 12:01pm Mean Platelet June 10.3 fL 7.4-10.4 MAIN L AB, [address] [place] [address] Volume 2019 [place] [address] 12:25am Mean Platelet April 08, 10.4 fL 7.4-10.4 MAIN LAB, [address] [place] [address] Volume 2019 [place] [address] 12:03pm Neutrophils December 57.1 % 40.0-72.0 MAIN LAB , [address] [place] [address] (%) (Auto) [address] [place] [address] 3:40am Neutrophils August 62.1 % 40.0-72.0 MAIN LAB , [address] [place] [address] (%) (Auto) [address] [place] [address] 12:01pm Neutrophils June 70.9 % 40.0-72.0 MAIN LAB , [address] [place] [address] (%) (Auto) [address] [place] [address] 12:25am Neutrophils April 08, 60.7 % 40.0-72.0 MAIN LA B, [address] [place] [address] (%) (Auto) 2019 [place] [address] 12:03pm Lymphocytes 33.7 % 17-45 MAIN LAB , [address] [place] [address] (%) (Auto) [address] [place] [address] 3:40am Lymphocytes August 29.7 % 17-45 MAIN LAB , [address] [place] [address] (%) (Auto) [address] [place] [address] 12:01pm Lymphocytes June 20.0 % 17-45 MAIN LAB , [address] [place] [address] (%) (Auto) 2019 [place] [address] 12:25am Lymphocytes April 08, 28.7 % 17-45 MAIN LA B, [address] [place] [address] (%) (Auto) 2019 [place] [address] 12:03pm Monocytes (%) December 6.0 % 3-11 MAIN L AB, [address] [place] [address] (Auto) 2020 [place] [address] 3:40am Monocytes (%) August 5.9 % 3-11 MAIN L AB, [address] [place] [address] (Auto) 2019 [place] [address] 12:01pm Monocytes (%) June 6.3 % 3-11 MAIN L AB, [address] [place] [address] (Auto) 2019 [place] [address] 12:25am Monocytes (%) April 08, 6.4 % 3-11 MAIN LAB, [address] [place] [address] (Auto) 2019 [place] [address] 12:03pm Eosinophils 2.2 % 0-3 MAIN LAB , [address] [place] [address] (%) (Auto) [address] [place] [address] 3:40am Eosinophils August 1.3 % 0-3 MAIN LAB , [address] [place] [address] (%) (Auto) [address] [place] [address] 12:01pm Eosinophils June 1.6 % 0-3 MAIN LAB , [address] [place] [address] (%) (Auto) [address] [place] [address] 12:25am Eosinophils April 08, 2.7 % 0-3 MAIN LA B, [address] [place] [address] (%) (Auto) [address] [place] [address] 12:03pm Basophils (%) December 0.7 % 0-1 MAIN L AB, [address] [place] [address] (Auto) 2020 [place] [address] 3:40am Basophils (%) August 0.6 % 0-1 MAIN L AB, [address] [place] [address] (Auto) 2019 [place] [address] 12:01pm Basophils (%) June 0.7 % 0-1 MAIN L AB, [address] [place] [address] (Auto) 2019 [place] [address] 12:25am Basophils (%) April 08, 0.7 % 0-1 MAIN LAB, [address] [place] [address] (Auto) 2019 [place] [address] 12:03pm Immature December 0.3 % 0-1 MAIN LAB, [address] [place] [address] Granulocyte % 2020 [place] [address] (Auto) 3:40am Immature August 0.4 % 0-1 MAIN LAB, [address] [place] [address] Granulocyte % 2019 [place] [address] (Auto) 12:01pm Immature June 0.5 % 0-1 MAIN LAB, [address] [place] [address] Granulocyte % 2019 [place] [address] (Auto) 12:25am Immature April 08, 0.8 % 0-1 MAIN LAB, [address] [place] [address] Granulocyte % 2019 [place] [address] (Auto) 12:03pm Neutrophils # December 4.97 1.4-6.5 MAIN L AB, [address] [place] [address] (Auto) 2020 1000/[place]3 [place] [address] 3:40am Neutrophils # August 7.45 1.4-6.5 MAIN L AB, [address] [place] [address] (Auto) 2019 1000/[place]3 [place] [address] 12:01pm Neutrophils # June 7.89 1.4-6.5 MAIN L AB, [address] [place] [address] (Auto) 2019 1000/mm3 [place] [address] 12:25am Neutrophils # April 08, 5.60 1.4-6.5 MAIN LAB, [address] [place] [address] (Auto) 2019 1000/mm3 [place] [address] 12:03pm Lymphocytes # December 2.93 1.2-3.4 MAIN L AB, [address] [place] [address] (Auto) 2020 1000/[place]3 [place] [address] 3:40am Lymphocytes # August 3.56 1.2-3.4 MAIN L AB, [address] [place] [address] (Auto) 2019 1000/[place]3 [place] [address] 12:01pm Lymphocytes # June 2.23 1.2-3.4 MAIN L AB, [address] [place] [address] (Auto) 2019 1000/[place]3 [place] [address] 12:25am Lymphocytes # April 08, 2.65 1.2-3.4 MAIN LAB, [address] [place] [address] (Auto) 2019 1000/[place]3 [place] [address] 12:03pm Monocytes # 0.52 0.0-0.8 MAIN LAB , [address] [place] [address] (Auto) 2020 1000/[place]3 [place] [address] 3:40am Monocytes # Parker 0.71 0.0-0.8 MAIN LAB , [address] [place] [address] (Auto) 2019 1000/[place]3 [place] [address] 12:01pm Monocytes # June 0.70 0.0-0.8 MAIN LAB , [address] [place] [address] (Auto) 2019 1000/mm3 [place] [address] 12:25am Monocytes # April 08, 0.59 0.0-0.8 MAIN LA B, [address] [place] [address] (Auto) 2019 1000/mm3 [place] [address] 12:03pm Eosinophils # December 0.19 0.0-0.7 MAIN L AB, [address] [place] [address] (Auto) 2020 1000/[place]3 [place] [address] 3:40am Eosinophils # August 0.16 0.0-0.7 MAIN L AB, [address] [place] [address] (Auto) 2019 1000/[place] [address] 12:01pm Eosinophils # October 0.18 0.0-0.7 MAIN L AB, [address] [place] [address] (Auto) 2019 1000/mm3 [place] [address] 12:25am Eosinophils # April 08, 0.25 0.0-0.7 MAIN LAB, [address] [place] [address] (Auto) 2019 1000/mm3 [place] [address] 12:03pm Basophils # 0.06 0.0-0.1 MAIN LAB , [address] [place] [address] (Auto) 2020 1000/[place] [address] 3:40am Basophils # Parker 0.07 0.0-0.1 MAIN LAB , [address] [place] [address] (Auto) 2019 1000/[place]3 [place] [address] 12:01pm Basophils # October 0.08 0.0-0.1 MAIN LAB , [address] [place] [address] (Auto) 2019 1000/mm3 [place] [address] 12:25am Basophils # April 08, 0.06 0.0-0.1 MAIN LA B, [address] [place] [address] (Auto) 2019 1000/mm3 [place] [address] 12:03pm Absolute December 0.0 0-1 MAIN LAB, [address] [place] [address] [place] [address] Granulocyte 3:40am (auto Absolute August 0.1 0-1 MAIN LAB, [address] [place] [address] [place] [address] Granulocyte 12:01pm (auto Absolute June 0.1 0-1 MAIN LAB, [address] [place] [address] Immature 2019 [place] [address] Granulocyte 12:25am (auto Absolute April 08, 0.1 0-1 MAIN LAB, [address] [place] [address] Immature 2019 [place] [address] Granulocyte 12:03pm (auto Differential December Automated MAIN LA B, [address] [place] [address] [place] [address] 3:40am Differential August Automated MAIN LA B, [address] [place] [address] [place] [address] 12:01pm Differential June Automated MAIN LA B, [address] [place] [address] Method 2019 [place] [address] 12:25am Differential April 08, Automated MAIN L AB, [address] [place] [address] Method 2019 [place] [address] 12:03pm Sodium Level December 140 mmol/L 137-145 MAIN L AB, [address] [place] [address] [place] [address] 3:40am Sodium Level August 137 mmol/L 137-145 MAIN L AB, [address] [place] [address] [place] [address] 12:01pm Sodium Level June 138 mmol/L 137-145 MAIN L AB, [address] [place] [address] 2019 [place] [address] 12:25am Potassium December 3.5 mmol/L 3.6-5.0 MAIN LAB, [address] [place] [address] [place] [address] 3:40am Potassium August 4.3 mmol/L 3.6-5.0 MAIN LAB, [address] [place] [address] [place] [address] 12:01pm Potassium June 3.6 mmol/L 3.6-5.0 MAIN LAB, [address] [place] [address] 2019 [place] [address] 12:25am Chloride December 105 mmol/L 98-107 MAIN LAB, [address] [facility] [address] [place] [address] 3:40am Chloride August 105 mmol/L 98-107 MAIN LAB, [address] [facility] [address] [place] [address] 12:01pm Chloride June 103 mmol/L 98-107 MAIN LAB, [address] [place] [address] 2019 [place] [address] 12:25am Carbon December 29 mmol/L MAIN LAB, [address] [place] [address] [place] [address] 3:40am Carbon August 26 mmol/L MAIN LAB, [address] [place] [address] [place] [address] 12:01pm Carbon June 29 mmol/L MAIN LAB, [address] [place] [address] [place] [address] 12:25am Anion Gap December 1403-25 MAIN LAB, [address] [place] [address] [place] [address] 3:40am Anion Gap August 1503-25 MAIN LAB, [address] [place] [address] [place] [address] 12:01pm Anion Gap June 1503-25 MAIN LAB, [address] [place] [address] [address] [place] [address] 12:25am Blood Urea December 11 mg/dL 05-05 MAIN LAB, [address] [place] [address] [place] [address] 3:40am Blood Urea August 12 mg/dL 05-05 MAIN LAB, [address] [place] [address] [place] [address] 12:01pm Blood Urea June 13 mg/dL 05-05 MAIN LAB, [address] [place] [address] 2019 [place] [address] 12:25am Creatinine December 0.85 mg/dL 0.66-1.25 MAIN LAB , [address] [place] [address] [place] [address] 3:40am Creatinine August 0.95 mg/dL 0.66-1.25 MAIN LAB , [address] [place] [address] [place] [address] 12:01pm Creatinine June 0.97 mg/dL 0.66-1.25 MAIN LAB , [address] [place] [address] [address] [place] [address] 12:25am Glomerular > 60 >60.0 MAIN LAB, [address] [place] [address] Filtration 2020 mL/[place] [address] Rate Calc 3:40am Glomerular Parker > 60 >60.0 MAIN LAB, [address] [place] [address] Filtration 2019 mL/[place] [address] Rate Calc 12:01pm Glomerular October > 60 >60.0 MAIN LAB, [address] [place] [address] Filtration 2019 mL/[place] [address] Rate Calc 12:25am Glucose Level December 121 mg/dL 70-100 MAIN L AB, [address] [place] [address] [place] [address] 3:40am Glucose Level August 101 mg/dL 70-100 MAIN L AB, [address] [place] [address] [place] [address] 12:01pm Glucose Level June 125 mg/dL 70-100 MAIN L AB, [address] [place] [address] [address] [place] [address] 12:25am Calcium Level December 8.5 mg/dL 8.4-10.2 MAIN L AB, [address] [place] [address] [place] [address] 3:40am Calcium Level August 9.4 mg/dL 8.4-10.2 MAIN L AB, [address] [place] [address] [place] [address] 12:01pm Calcium Level June 9.1 mg/dL 8.4-10.2 MAIN L AB, [address] [place] [address] [address] [place] [address] 12:25am Calcium August 9.6 mg/dL 8.4-10.2 MAIN LAB, [address] [place] [address] [place] [address] Albumin 12:01pm Calcium June 9.3 mg/dL 8.4-10.2 MAIN LAB, [address] [place] [address] [place] [address] Albumin 12:25am Magnesium December 2.0 mg/dL 1.6-2.3 MAIN LAB, [address] [place] [address] [place] [address] 3:40am Total Parker 0.5 mg/dL 0.2-1.3 MAIN LAB, [address] [place] [address] Bilirubin 2019 [facility] [[email or web address] [place] [address] 12:01pm Total June 0.3 mg/dL 0.2-1.3 MAIN LAB, [address] [place] [address] Bilirubin 2019 [place] [address] 12:25am Aspartate August 34 U/L MAIN LAB, [address] [place] [address] Amino Transf [place] [address] (AST/SGOT) 12:01pm Aspartate June 34 U/L MAIN LAB, [address] [place] [address] Amino Transf 2019 [place] [address] (AST/SGOT) 12:25am Alanine August 50 U/L <50 As of 01/09/20, MAIN L AB, [address] [place] [address] Aminotransfer 2019 the [place] [facility] [address] ase 12:01pm Range for (ALT/SGPT) ALT/SGPT for adult patients has been updated. The Reference Range for ALT/SGPT has not been established for patients <18 years of age. Alanine June 48 U/L <50 As of 01/09/20, MAIN L AB, [address] [place] [address] [address] [place] [address] ase 12:25am Range for (ALT/SGPT) ALT/SGPT for adult patients has been updated. The Reference Range for ALT/SGPT has not been established for patients <18 years of age. Troponin I December < 0.012 0-0.034 Reference Range: MA IN LAB, [address] [place] [address] 2020 ng/mL <0.034 ng/[place] [address] 3:40am Cut-off 0.120 ng/mLThe results of this assay can be falsely decreased in patients who consume Biotin. Troponin I June < 0.012 0-0.034 Reference Range: [place] IN LAB, [address] [place] [address] 2019 ng/mL <0.034 ng/[place] [address] 12:25am Cut-off 0.120 ng/mLThe results of this assay can be falsely decreased in patients who consume Biotin. Total Protein August 7.3 g/dL 6.3-8.2 MAIN L AB, [address] [place] [address] 2019 [place] [address] 12:01pm Total Protein June 7.4 g/dL 6.3-8.2 MAIN L AB, [address] [place] [address] [address] [place] [address] 12:25am Albumin August 4.0 g/dL 3.5-5.0 MAIN LAB, [address] [place] [address] 2019 [place] [address] 12:01pm Albumin June 4.1 g/dL 3.5-5.0 MAIN LAB, [address] [place] [address] [address] [place] [address] 12:25am Cholesterol August 229 mg/dL 59-199 MAIN LAB , [address] [place] [address] 2019 [place] [address] 12:01pm HDL August 33 mg/dL 40-60 The National MAIN LA B, [address] [place] [address] Cholesterol 2019 Cholesterol . [place] [place] [address] 12:01pm Education Program (NCEP) has set the following guidelines (reference values) for cholesterol, HDL:Low HDL: <40 mg/dLNormal: 40-60 mg/dLDesirable: >60 mg/dL LDL August 145.0 0-129 MAIN LAB, [address] [place] [address] Cholesterol 2019 mg/dL [place] [address] 12:01pm VLDL August 51.0 mg/dL 0-32 MAIN LAB, [address] [place] [address] Cholesterol 2019 [place] [place] [address] 12:01pm Cholesterol/H August 6.93 0-3.9 MAIN L AB, [address] [place] [address] DL Ratio 2019 [place] [address] 12:01pm Triglycerides August 255 mg/dL 0-149 MAIN L AB, [address] [facility] Level 2019 [place] [address] 12:01pm Alkaline August 103 U/L 38-126 MAIN LAB, [address] [place] [address] Phosphatase 2019 [facility] [place] [address] 12:01pm Alkaline June 92 U/L 38-126 MAIN LAB, [address] [place] [address] Phosphatase 2019 [place] [address] 12:25am Thyroid August 1.89 mlU/L 0.47-4.68 The results of MAIN LAB, [address] [place] [address] Stimulating [address] [place] [address] Hormone (TSH) 12:01pm be falsely decreased in patients who consume Biotin. SARS-CoV-2 January 19 Negative Negative This test is MAIN L AB, [address] RNA (RT-PCR) 2020 [place] [address] 1:00pm under the Food and Drug Administration's (FDA) [...] sheets for providers can be found at: [employer]/ 8033/downloadFac t sheets for patients can be found at: [facility]/ 1682/download SARS-CoV-2 November Negative This test is [facility] 2020 [place] [address] 11:00am under the Food and Drug Administration's [...] sheets for providers can be found at: [email or web address]/ 6497/downloadFac t sheets for patients can be found at: [employer]/ 1619/download Diagnostic Imaging Reports Report Dictated Date/Time Dictated By Status Radiology Report April 08, 2020 10:52am Tori Millan MD co mpleted [facility] ULTRASOUND REPORT PATIENT NAME: YOLANDA KO 13 [...] 2020 11:17am Tori Millan MD co mpleted [facility] RADIOLOGY REPORT PATIENT NAME: YOLANDA KO 13 DATE [...] 2020 11:18am Tori Millan MD co mpleted [facility] RADIOLOGY REPORT PATIENT NAME: YOLANDA KO 15 DATE OF : 1975 ATTENDING/ER PHYSICIAN: Carolina perez NP ER/ATTENDING PHYSICIAN: PRIMARY CARE PHYS: Out [facility] ADMITTING PHYSICIAN: CONSULTING PHYSICIAN: PROCEDURE DATE: 04/08/20 [...] 2020 9:27am Tori Millan MD c ompleted [facility] ULTRASOUND REPORT PATIENT NAME: YOLANDA KO 13 [...] 04, 2020 2:34pm Jaye Scott MD completed [facility] ULTRASOUND REPORT PATIENT NAME: YOLANDA KO 13 [...] 10, 2020 11:49pm Roscoe Guerrero MD comp [facility] EKG PATIENT NAME: YOLANDA KO 13 DATE OF : 1975 ATTENDING PHYSICIAN: PRIMARY CARE PHYS: Carolina Aguirre WATER ATTENDANT DICTATING PHYSICIAN: Roscoe Guerrero MD REPORT STATUS: [...] August 23, 2020 12:30pm Mario Guzmán completed [facility] CAT SCAN REPORT PATIENT NAME: YOLANDA KO 13 DATE OF : 1975 ATTENDING/ER PHYSICIAN: Jj Lopez JR , DO ER/ATTENDING PHYSICIAN: PRIMARY CARE PHYS: Carolina Aguirre WATER ATTENDANT ADMITTING PHYSICIAN: CONSULTING PHYSICIAN: PROCEDURE DATE: 08/23/20 [...] 27, 2020 3:01pm Tori Millan MD completed [facility] ULTRASOUND REPORT PATIENT NAME: YOLANDA KO 13 DATE OF : 1975 ATTENDING/ER PHYSICIAN: Jerome ruiz MD ER/ATTENDING PHYSICIAN: PRIMARY CARE PHYS: jJ Lopez JR, DO ADMITTING PHYSICIAN: CONSULTING PHYSICIAN: [...] Tori hart MD in OV> 08/27/20 1518 Electrocardiogram December 23, 2020 3:28am Mario Belcher completed [facility] EKG PATIENT NAME: YOLANDA KO 15 DATE [...] Wyatt Confirm ed By:Demarco Wyatt 12/23/20 0458 Colonoscopy January 25, 2021 2:02pm Marty Sweet MD [place] [id number] OPERATIVE PROCEDURE REPORT PATIENT: Yolanda Ko DATE: 01/25/2021 MR# [id number] PROCEDURE: Colonoscopy, diagnostic VISIT ID: [id number] ENDOSCOPIST: Dr. Renzo Sweet MD BIRTHDATE: 1975 ELECTRIC ACCOUNTING MACHINE OPERATOR: Martín Iraheta rn GENDER: male INDICATIONS: Diagnostic colonscopy and Constipation MEDICATIONS: See anesthesia notes MEDICATION START TIME: MD OUT TIME: DESCRIPTION OF PROCEDURE: After the ris ks benefits and alternatives of the procedure were thoroughly explained, in formed consent was obtained. Digital rectal exam performed and revealed no a bnormalities of the rectum. The [id number] ([id number]) endoscope was intro duced through the anus [...] complicati ons. IMPRESSION: Normal colonoscopy RECOMMENDATIONS: Call [phone] for prob lems REPEAT EXAM: Return in 10 years Colonos copy or as needed for changes.. CC: Jj Lopez Jr eSigned: Dr. Renzo Sweet MD 1 2:04 PM Name: Yolanda Ko, [id number] Radiology Report February 01, 2021 4:27pm Kenzie Padgett MD comp [facility] ULTRASOUND REPORT PATIENT NAME: YOLANDA KO 15 [...] hart MD, PhD in OV> 02/01/21 1639 Advance Directives Advance Directive Response Recorded Date/Time Does patient have an Advanced Directive? No June 25, 2019 1:44pm Do we have a copy on file here at [facility]? No O ctober 2018 1:44pm Pt has a Living Will? No June 25, 2019 1:44pm Do we have a copy on file here at [facility]? No O ctober 2018 1:44pm Pt has a Power of Beveling Machine Operator? No June 1:44pm Do we have a copy on file here at [facility]? No O ctober 2018 1:44pm Chief Complaint [...] anus and rectu m epididymitis Follow up Reason for Visit Epididymo-orchitis Epididymo-orchitis Epididymo-orchitis Change in bowel function Morbid obesity due to excess calories Smoker Epididymo-orchitis Encounters Encounter Location(s) Arrival/Admit Discharge/Depart Provider(s ) Date Date Departed [facility] April 08, 2020 April 08, 2020 [facility] Emergency Medical 12:35am 1:22am Group-Emergency Department Departed [facility] April 08, 2020 April 08, 2020 [facility] Emergency Medical 10:03am 12:39pm Group-Emergency Department Departed [facility] April 08, 2020 April 08, 2020 Manuel Figueroa [facility] 10:06am 10:07am , SRIDEVI [facility] Departed [facility] April 08, 2020 April 08, 2020 [facility] Emergency Medical 9:44pm 10:10pm Group-Emergency Department Departed [facility] April 09, 2020 April 09, 2020 Jerome Joshi Physician/Prov Medical 8:23am 9:40am MD [facility] Visit n Urology Services Departed [facility] April 23, 2020 April 23, 2020 Jerome Joshi [facility] 8:43am 8:44MD leobardo [facility] Departed [facility] June 04June 04, 2020 Jerome Joshi [facility] 2019 2:17pm 2:18pm MD [facility] Departed [facility] June 10, 2020 June 11, 2020 null Emergency Medical 11:46pm 1:27am Group-Emergency Department Departed [facility] June 18, 2020 June 18, 2020 CARLOTTA Morales [facility] 12:10pm 12:11pm Lio hernandez [facility] Departed [facility] June 29June 29, 2020 Jerome Joshi Physician/Prov Medical 2019 2:41pm 3:05pm MD [facility] Visit n Urology Services Departed [facility] August 20, August 20, 2020 Quinn Lopez JR, [facility] Medical 2019 5:17pm 5:18pm [facility] Departed [facility] August 23, August 23, 2020 Quinn Lopez JR, [facility] 2019 12:13pm 12:14pm DO [facility] Departed [facility] August 27, August 27, 2020 Jerome Joshi [facility] 2019 3:26pm 3:27MD carlo [facility] Departed [facility] September 17, 2020 September 17, 2020 Dedra Eastman Physician/[facility] Medical 3:47pm 4:46pm BRENDA [facility] Visit Medicine Departed [facility] September 24, September 24, 2020 Jerome Joshi Physician/[facility] Medical 2020 12:32pm 12:54pm MD pricer [facility] Visit n Urology Services Departed [facility] December 07, 2020 December 07, 2020 Melody Robles Clinical Medical 7:45am 7:46am [facility] Departed [facility] December 23, 2020 December 23, 2020 null Emergency Medical 3:24am 5:05am Group-Emergency Department Departed [facility] January 19, 2021 January 19, 2021 [facility] 5:02am 5:03am MD Micki [facility] Departed [facility] January 25, 2021 January 25, 2021 [facility] 12:06pm 3:09pm MD Micki [facility] Group-Surgical Services Departed [facility] February 01, 2021 February 01, 2021 Jerome velez [facility] 3:29pm 3:30pm MD [facility] Departed [facility] February 10, 2021 February 10, 2021 Jerome velez Physician/[facility] Medical 2:44pm 3:07pm MD [facility] Visit n Urology Services Recent Diagnosis Onset Date Epididymo-orchitis Epididymo-orchitis Epididymo-orchitis Change in bowel function Morbid obesity due to excess calories Smoker Epididymo-orchitis Assessments Diagnosis Onset Date Resolution Status Epididymo-orchitis acute Epididymo-orchitis acute Epididymo-orchitis acute Change in bowel function acute Morbid obesity due to excess calories acute Smoker acute Epididymo-orchitis acute Family History Relationship Condition Age at Onset Recorded Date/Ti me Not Specified Polyp of colon Unknown Functional Status Observation Response Date Recorded Living Situation Home January 13, 2021 2:20pm Goals Goals may be documented in an alternate section. Mental Status Observation Response Date Recorded Comprehension Ability Understands Concepts April 08, 2020 1 2:50am Mood/Behavior Appropriate April 08, 2020 12:5 0am Medical Equipment No Medical Equipment Information available Insurance Providers Guarantor YOLANDA Tai ANNALISA Address [address] [place] [id number] Contact Info. Home Phone: Payer Policy Id Coverage Id Subscriber's Subscriber Id Effective E xpiration Name Date Date [place]ICAID [place] [id number] YOLANDA KO [id number] [place] SELF PAY Self N/A Plan of Treatment Epididymo-orchitis Plan Likely left [...] or 1 year with follow-up ultrasound scrotum Epididymo-orchitis Plan Signed - 04/09/20 08:54 Epididymo-orchitis [...] Provider Contact Provider Address Referral Date Information Jj Lopez Work Phone: Alicia FUENTES JR, DO [address] [place] [address] Work Phone: [phone] Manuel Figueroa NP [facility] [address] Manuel Aguirre Work Phone: [phone] Manuel Figueroa NP [facility] [address] [address] Willoughby Work Phone: [facility] Urology MD Adi [address] [facility] [id number] [address] Future Procedures Future procedure information [...] Date of Observation Smokes tobacco daily (finding) February 10, 2021 3:05pm Observation Status Observation Response Date of Response Alcohol Use Yes January 25, 2021 12:45 pm alcohol intake frequency holidays/special occasions only January 13, 2021 2:20pm Substance/Street Drug Use Yes January 25, 2021 12:45pm Substance Use Treatment No December 23, 2020 4:58am substance use type marijuana January 13, 2021 8:40am Smoking Status Current every day smoker February 10, 2021 3:05pm Assigned Sex Male Vital Signs Vital Reading [...] 08, 2020 9:45pm Respiratory rate 24 /min 12-April 08, 2020 9:45pm Oxygen saturation by Pulse [...] Heart Rate 94 /min 60-100 June 11 0 1:27am Respiratory rate 16 /min -June 11 1:27am Oxygen saturation by Pulse 99 % 95-100 2019 1:27am oximetry BP Systolic 124 mm[Hg] 100-140 June 11 0 1:27am BP Diastolic 75 mm[Hg] 50-85 June 11 0 1:27am Height 76 [in_i] June 29 2:47pm Body Temperature 97.4 [degF] 97.6-99.6 June 29 020 2:47pm Heart Rate 114 /min 60-100 June 29 2:47pm Respiratory rate 18 /min -June 29 020 2:47pm BP Systolic 118 mm[Hg] 100-140 June 29 2:47pm BP Diastolic 88 mm[Hg] 50-85 June 29 2:47pm Height 76 [in_i] September 17 2:49pm Weight 198.67 kg September 17 2:49pm BMI (Body Mass Index) 53.3 kg/m2 September 2:49pm Height 76 [in_i] September 24 11:36am Body Temperature 97.5 [degF] 97.6-99.6 September 24, 021 11:36am Heart Rate 109 /min 60-100 September 24 11:36am Respiratory rate 18 /min 12-September 24, 021 11:36am BP Systolic 132 mm[Hg] 100-140 September 24 11:36am BP Diastolic 88 mm[Hg] 50-85 September 24 11:36am Weight 201.84 kg December 23, 2020 3:34am Body Temperature 97.6 [degF] 97.6-99.6 December 23 3:34am Heart Rate 91 /min 60-100 December 23, 2020 4:36am Respiratory rate 20 /min 12-24 December 23 4:36am Oxygen saturation by Pulse 97 % 95-100 December 23, 2020 4:36am oximetry BP Systolic 151 mm[Hg] 100-140 December 23, 2020 4:36am BP Diastolic 96 mm[Hg] 50-85 December 23, 2020 4:36am Height 75 [in_i] January 13, 2021 8: 40am Weight 204.11 kg January 13, 2021 8: 40am Body Temperature 99 [degF] 97.6-99.6 January 25, 2021 2:10pm Heart Rate 118 /min 60-100 January 25, 2021 2 :48pm Respiratory rate 16 /min -January 25, 2021 2:48pm Oxygen saturation by Pulse 100 % 95-100 January 082020 2:48pm oximetry BP Systolic 128 mm[Hg] 100-140 January 25, 2021 2 :48pm BP Diastolic 89 mm[Hg] 50-85 January 25, 2021 2 :48pm BMI (Body Mass Index) 56.2 kg/m2 January 13, 2 021 8:40am Heart Rate 92 /min 60-100 February 10, 2021 2 :49pm Respiratory rate 20 /min 12-24 February 10, 2021 2:49pm BP Systolic 128 mm[Hg] 100-140 February 10, 2021 2 :49pm BP Diastolic 98 mm[Hg] 50-85 February 10, 2021 2 :49pm Hospital Discharge Instructions
--- OUTSIDE RECORDS SUMMARY | 2022-03-21 09:31 | XMS_ITS | Continuity of Care Document ---
:1975 Author Organization [facility] Address [address] [place] [address] Care Team Providers Name Role Phone Jj [...] 8:35am Urine Specific April 09, 2020 1.025 [place] (Manual) 8:35am POC Urine RBC April 09, [...] fo r providers can be found at: Neurotrack.gov/Ask The Doctor /799686/download Fact sheets fo r patients can be found at: Neurotrack[employer]gov/Ask The Doctor /786292/download Chief Complaint and Reason for Visit Encounter [...] 1:38pm [facility] Department 12:47pm Departed [facility] February 10, 2021 February 10, 2021 3:07pm Adi Physician[facility] Urology 2:44pm [facility] Services Office Visit Departed [facility] DI February 01, 2021 February 01, 2021 3:30pm [facility] January 25, 2021 January 25, 2021 3:09pm Fabiola staton [facility] Services 12:06pm [facility] Departed [facility] January 19, 2021 January 19, 2021 5:03am [facility] 5[facility] Renzo Dep[facility] Emergency December 23, December 23, 2020 5:05am [facility] Department 2020 3:24am Departed [facility] December 07, December 07, 2020 7:46am [facility] 2020 7:45am Melody Departed [facility] September 24, September 24, 2020 Meri bowen, Physician[facility] Urology 2020 11:32am 11:54am Kwaku ovider Services Office Visit Departed [facility] September 17, September 17, 2020 Brett hart Physician[facility] Medicine 2020 2:47pm 3:46pm Maty ovider Office Visit Departed [facility] August 27August 27, 2020 Meri bowen [facility] 2019 2:26pm 2:27pm [facility] 2020 [facility] 2019 11:13am 11:14am [facility] Departed [facility] August 20August 20, 2020 [facility] 4[facility] 4:18[facility] 29June 29, 2020 Meri bowen, [facility] U[facility] 2019 2:41pm 3:05pm Kwaku ovider Services Office Visit Departed [facility] June 18June 18, 2020 Arianne hopkins [facility] 2019 12:10pm 12:11pm [facility] June 10June 11, 2020 [facility] Department 2019 11:46pm [facility]June [facility], 2020 [facility] 2019 2:17pm 2:18pm [facility] April 23April 23, 2020 Adi [facility] 2019 8:43am 8:44am [facility] Departed [facility] April 09, 2020 April 09, 2020 9:40 am Adi [facility] Urology 8:23am Kwaku ovider Services Office Visit Departed [facility] Emergency April 08, 2020 April 08, 2020 10:10p m [facility] Department 9:44pm Departed [facility] April 08, 2020 April 08, 2020 10:07a [facility] 10:06am [facility] Departed [facility] Emergency [...] Care Instructions High Blood Pressure (DC) Conjunctivitis ([facility]) ED COVID 19 General Instructions- decrease [...]
--- OUTSIDE RECORDS SUMMARY | 2022-03-21 09:32 | XMS_ITS | Continuity of Care Document ---
:1975 Author Organization [facility] Address [address] [place] [address] Phone Care Team Providers Name Role Phone [...] 8:35am Urine April 09, 1.025 Specific 2020 Allen 8:35am (Manual) POC Urine RBC April 09, Trace 2019 Intact 8:35am Urine pH April 09, 5.5 (Manual) 2019 8:35am POC Urine April 09, Negative Protein 2019 Confirmation 8:35am Urine April 09, 0.2 Urobilinogen 2019 (Manual) 8:35am Urine Nitrite April 09, Negative (Manual) 2019 8:35am Urine April 09, Negative Leukocyte 2019 Esterase 8:35am (Manual) White Blood December 8.70 4.8-10.8 MAIN LAB , [address] Count 2020 1000/mm3 [facility] [place] [address] 3:40am White Blood August 12.00 4.8-10.8 MAIN LAB , [address] Count 2019 1000/mm3 [facility] [place] [address] 12:01pm White Blood June 11.14 4.8-10.8 MAIN LAB , [address] Count 2019 1000/mm3 [place] [address] 12:25am White Blood April 08, 9.22 4.8-10.8 MAIN LA B, [address] Count 2019 1000/[place]3 [place] [address] 12:03pm Red Blood December 5.05 M/mm3 4.70-6.00 MAIN LAB, [address] Count [address] [place] [address] 3:40am Red Blood August 5.37 M/mm3 4.70-6.00 MAIN LAB, [address] Count 2019 [place] [address] 12:01pm Red Blood June 5.37 M/mm3 4.70-6.00 MAIN LAB, [address] Count 2019 [place] [address] 12:25am Red Blood April 08, 5.22 M/mm3 4.70-6.00 MAIN LAB , [address] Count 2019 [place] [address] 12:03pm Hemoglobin December 14.3 g/dL 14.0-18.0 MAIN LAB, [address] [place] [address] [place] [address] 3:40am Hemoglobin August 15.1 g/dL 14.0-18.0 MAIN LAB, [address] [place] [address] [place] [address] 12:01pm Hemoglobin June 15.1 g/dL 14.0-18.0 MAIN LAB, [address] [place] [address] 2019 [place] [address] 12:25am Hemoglobin April 08, 14.7 g/dL 14.0-18.0 MAIN LAB , [address] [place] [address] 2019 [place] [address] 12:03pm Hematocrit December 43.3 % 42-52 MAIN LAB, [address] [place] [address] [place] [address] 3:40am Hematocrit August 47.3 % 42-52 MAIN LAB, [address] [place] [address] [place] [address] 12:01pm Hematocrit June 46.7 % 42-52 MAIN LAB, [address] [place] [address] 2019 [place] [address] 12:25am Hematocrit April 08, 45.9 % 42-52 MAIN LAB , [address] [place] [address] 2019 [place] [address] 12:03pm Mean December 85.7 fL 80.0-94.0 MAIN LAB, [address] [place] [address] [address] [place] [address] Volume 3:40am Mean August 88.1 fL 80.0-94.0 MAIN LAB, [address] [place] [address] [place] [address] Volume 12:01pm Mean June 87.0 fL 80.0-94.0 MAIN LAB, [address] [place] [address] [place] [address] Volume 12:25am Mean April 08, 87.9 fL 80.0-94.0 MAIN LAB, [address] [place] [address] [address] [place] [address] Volume 12:03pm Mean December 28.3 pg 27-31 MAIN LAB, [address] [place] [address] [place] [address] Hemoglobin 3:40am Mean August 28.1 pg 27-31 MAIN LAB, [address] [place] [address] 2019 [place] [address] Hemoglobin 12:01pm Mean June 28.1 pg 27-31 MAIN LAB, [address] [facility] Corpuscular 2019 [place] [address] Hemoglobin 12:25am Mean April 08, 28.2 pg 27- MAIN LAB, [address] [facility] Corpuscular 2019 [place] [address] Hemoglobin 12:03pm Mean December 33.0 g/dL MAIN LAB, [address] [facility] Corpuscular 2020 [place] [address] Hemoglobin 3:40am Concent Mean August 31.9 g/dL MAIN LAB, [address] [facility] Corpuscular 2019 [place] [address] Hemoglobin 12:01pm Concent Mean June 32.3 g/dL MAIN LAB, [address] [place], [place] [address]cular 2019 [place] [address] Hemoglobin 12:25am Concent Mean April 08, 32.0 g/dL MAIN LAB, [address] [facility] Corpuscular 2019 [place] [address] Hemoglobin 12:03pm Concent Red Cell December 13.9 % 11.5-14.5 MAIN LAB, [address] [facility] Distribution 2020 [place] [address] Width 3:40am Red Cell August 14.0 % 11.5-14.5 MAIN LAB, [address] [place] [address] Distribution 2019 [facility] [place] [address] Width 12:01pm Red Cell June 14.1 % 11.5-14.5 MAIN LAB, [address] [place] [address] Distribution 2019 [place] [address] Width 12:25am Red Cell April 08, 14.0 % 11.5-14.5 MAIN LAB, 133 [facility] 2019 [place] [address] Width 12:03pm Platelet December 258 140-440 MAIN LAB, [address] [place] [address] Count 2020 1000/[place]3 [place] [address] 3:40am Platelet August 328 140-440 MAIN LAB, [address] [place] [address] Count 2019 1000/[place]3 [place] [address] 12:01pm Platelet June 276 140-440 MAIN LAB, [address] [facility] Count 2019 1000/mm3 [place] [address] 12:25am Platelet April 08, 284 140-440 MAIN LAB, [address] [place] [address] Count 2019 1000/mm3 [place] [address] 12:03pm Mean Platelet December 10.1 fL 7.4-10.4 MAIN L AB, [address] [place] [address] [place] [address] 3:40am Mean Platelet August 10.9 fL 7.4-10.4 MAIN L AB, [address] [place] [address] [place] [address] 12:01pm Mean Platelet June 10.3 fL 7.4-10.4 MAIN L AB, [address] [place] [address] Volume 2019 [place] [address] 12:25am Mean Platelet April 08, 10.4 fL 7.4-10.4 MAIN LAB, [address] [place] [address] Volume 2019 [place] [address] 12:03pm Neutrophils December 57.1 % 40.0-72.0 MAIN LAB , [address] [place] [address] (%) (Auto) [address] [place] [address] 3:40am Neutrophils August 62.1 % 40.0-72.0 MAIN LAB , [address] [place] [address] (%) (Auto) [address] [place] [address] 12:01pm Neutrophils June 70.9 % 40.0-72.0 MAIN LAB , [address] [place] [address] (%) (Auto) [address] [place] [address] 12:25am Neutrophils April 08, 60.7 % 40.0-72.0 MAIN LA B, [address] [place] [address] (%) (Auto) 2019 [place] [address] 12:03pm Lymphocytes 33.7 % 17-45 MAIN LAB , [address] [place] [address] (%) (Auto) [address] [place] [address] 3:40am Lymphocytes August 29.7 % 17-45 MAIN LAB , [address] [place] [address] (%) (Auto) [address] [place] [address] 12:01pm Lymphocytes June 20.0 % 17-45 MAIN LAB , [address] [place] [address] (%) (Auto) [address] [place] [address] 12:25am Lymphocytes April 08, 28.7 % 17-45 MAIN LA B, [address] [place] [address] (%) (Auto) [address] [place] [address] 12:03pm Monocytes (%) December 6.0 % 3-11 MAIN L AB, [address] [place] [address] (Auto) 2020 [place] [address] 3:40am Monocytes (%) August 5.9 % 3-11 MAIN L AB, [address] [place] [address] (Auto) 2019 [place] [address] 12:01pm Monocytes (%) June 6.3 % 3-11 MAIN L AB, [address] [place] [address] (Auto) 2019 [place] [address] 12:25am Monocytes (%) April 08, 6.4 % 3-11 MAIN LAB, [address] [place] [address] (Auto) 2019 [place] [address] 12:03pm Eosinophils 2.2 % 0-3 MAIN LAB , [address] [place] [address] (%) (Auto) [address] [place] [address] 3:40am Eosinophils August 1.3 % 0-3 MAIN LAB , [address] [place] [address] (%) (Auto) [address] [place] [address] 12:01pm Eosinophils June 1.6 % 0-3 MAIN LAB , [address] [place] [address] (%) (Auto) [address] [place] [address] 12:25am Eosinophils April 08, 2.7 % 0-3 MAIN LA B, [address] [place] [address] (%) (Auto) [address] [place] [address] 12:03pm Basophils (%) December 0.7 % 0-1 MAIN L AB, [address] [place] [address] (Auto) 2020 [place] [address] 3:40am Basophils (%) August 0.6 % 0-1 MAIN L AB, [address] [place] [address] (Auto) 2019 [place] [address] 12:01pm Basophils (%) June 0.7 % 0-1 MAIN L AB, [address] [place] [address] (Auto) 2019 [place] [address] 12:25am Basophils (%) April 08, 0.7 % 0-1 MAIN LAB, [address] [place] [address] (Auto) 2019 [place] [address] 12:03pm Immature December 0.3 % 0-1 MAIN LAB, [address] [place] [address] Granulocyte % 2020 [place] [address] (Auto) 3:40am Immature August 0.4 % 0-1 MAIN LAB, [address] [place] [address] Granulocyte % 2019 [place] [address] (Auto) 12:01pm Immature June 0.5 % 0-1 MAIN LAB, [address] [place] [address] Granulocyte % [address] [place] [address] (Auto) 12:25am Immature April 08, 0.8 % 0-1 MAIN LAB, [address] [place] [address] Granulocyte % 2019 [place] [address] (Auto) 12:03pm Neutrophils # December 4.97 1.4-6.5 MAIN L AB, [address] [place] [address] (Auto) 2020 1000/[place]3 [place] [address] 3:40am Neutrophils # August 7.45 1.4-6.5 MAIN L AB, [address] [place] [address] (Auto) 2019 1000/[place]3 [place] [address] 12:01pm Neutrophils # June 7.89 1.4-6.5 MAIN L AB, [address] [place] [address] (Auto) 2019 1000/mm3 [place] [address] 12:25am Neutrophils # April 08, 5.60 1.4-6.5 MAIN LAB, [address] [place] [address] (Auto) 2019 1000/mm3 [place] [address] 12:03pm Lymphocytes # December 2.93 1.2-3.4 MAIN L AB, [address] [place] [address] (Auto) 2020 1000/[place] [address] 3:40am Lymphocytes # August 3.56 1.2-3.4 MAIN L AB, [address] [place] [address] (Auto) 2019 1000/[place]3 [place] [address] 12:01pm Lymphocytes # June 2.23 1.2-3.4 MAIN L AB, [address] [place] [address] (Auto) 2019 1000/[place]3 [place] [address] 12:25am Lymphocytes # April 08, 2.65 1.2-3.4 MAIN LAB, [address] [place] [address] (Auto) 2019 1000/mm3 [place] [address] 12:03pm Monocytes # 0.52 0.0-0.8 MAIN LAB , [address] [place] [address] (Auto) 2020 1000/[place]3 [place] [address] 3:40am Monocytes # Parker 0.71 0.0-0.8 MAIN LAB , [address] [place] [address] (Auto) 2019 1000/[place]3 [place] [address] 12:01pm Monocytes # June 0.70 0.0-0.8 MAIN LAB , [address] [place] [address] (Auto) 2019 1000/mm3 [place] [address] 12:25am Monocytes # April 08, 0.59 0.0-0.8 MAIN LA B, [address] [place] [address] (Auto) 2019 1000/mm3 [place] [address] 12:03pm Eosinophils # December 0.19 0.0-0.7 MAIN L AB, [address] [place] [address] (Auto) 2020 1000/[place] [address] 3:40am Eosinophils # August 0.16 0.0-0.7 MAIN L AB, [address] [place] [address] (Auto) 2019 1000/[place]3 [place] [address] 12:01pm Eosinophils # October 0.18 0.0-0.7 MAIN L AB, [address] [place] [address] (Auto) 2019 1000/mm3 [place] [address] 12:25am Eosinophils # April 08, 0.25 0.0-0.7 MAIN LAB, [address] [place] [address] (Auto) 2019 1000/mm3 [place] [address] 12:03pm Basophils # 0.06 0.0-0.1 MAIN LAB , [address] [place] [address] (Auto) 2020 1000/[place]3 [place] [address] 3:40am Basophils # Parker 0.07 0.0-0.1 MAIN LAB , [address] [place] [address] (Auto) 2019 1000/[place]3 [place] [address] 12:01pm Basophils # October 0.08 0.0-0.1 MAIN LAB , [address] [place] [address] (Auto) 2019 1000/mm3 [place] [address] 12:25am Basophils # April 08, 0.06 0.0-0.1 MAIN LA B, [address] [place] [address] (Auto) 2019 1000/mm3 [place] [address] 12:03pm Absolute December 0.0 0-1 MAIN LAB, [address] [place] [address] [place] [address] Granulocyte 3:40am (auto Absolute August 0.1 0-1 MAIN LAB, [address] [place] [address] [place] [address] Granulocyte 12:01pm (auto Absolute June 0.1 0-1 MAIN LAB, [address] [place] [address] Immature 2019 [place] [address] Granulocyte 12:25am (auto Absolute April 08, 0.1 0-1 MAIN LAB, [address] [place] [address] Immature 2019 [place] [address] Granulocyte 12:03pm (auto Differential December Automated MAIN LA B, [address] [place] [address] [place] [address] 3:40am Differential August Automated MAIN LA B, [address] [place] [address] [place] [address] 12:01pm Differential June Automated MAIN LA B, [address] [place] [address] Method 2019 [place] [address] 12:25am Differential April 08, Automated MAIN L AB, [address] [place] [address] Method 2019 [place] [address] 12:03pm Sodium Level December 140 mmol/L 137-145 MAIN L AB, [address] [place] [address] [place] [address] 3:40am Sodium Level August 137 mmol/L 137-145 MAIN L AB, [address] [place] [address] [place] [address] 12:01pm Sodium Level June 138 mmol/L 137-145 MAIN L AB, [address] [place] [address] 2019 [place] [address] 12:25am Potassium December 3.5 mmol/L 3.6-5.0 MAIN LAB, [address] [place] [address] [place] [address] 3:40am Potassium August 4.3 mmol/L 3.6-5.0 MAIN LAB, [address] [place] [address] [place] [address] 12:01pm Potassium June 3.6 mmol/L 3.6-5.0 MAIN LAB, [address] [place] [address] 2019 [place] [address] 12:25am Chloride December 105 mmol/L 98-107 MAIN LAB, [address] [facility] [address] [place] [address] 3:40am Chloride August 105 mmol/L 98-107 MAIN LAB, [address] [facility] [address] [place] [address] 12:01pm Chloride June 103 mmol/L 98-107 MAIN LAB, [address] [place] [address] 2019 [place] [address] 12:25am Carbon December 29 mmol/L MAIN LAB, [address] [place] [address] [place] [address] 3:40am Carbon August 26 mmol/L MAIN LAB, [address] [place] [address] [place] [address] 12:01pm Carbon June 29 mmol/L MAIN LAB, [address] [place] [address] [place] [address] 12:25am Anion Gap December 1403-25 MAIN LAB, [address] [place] [address] [place] [address] 3:40am Anion Gap August 1503-25 MAIN LAB, [address] [place] [address] [place] [address] 12:01pm Anion Gap June 1503-25 MAIN LAB, [address] [place] [address] 2019 [place] [address] 12:25am Blood Urea December 11 mg/dL 05-05 MAIN LAB, [address] [place] [address] [place] [address] 3:40am Blood Urea August 12 mg/dL 05-05 MAIN LAB, [address] [place] [address] [place] [address] 12:01pm Blood Urea June 13 mg/dL 05-05 MAIN LAB, [address] [place] [address] 2019 [place] [address] 12:25am Creatinine December 0.85 mg/dL 0.66-1.25 MAIN LAB , [address] [place] [address] [place] [address] 3:40am Creatinine August 0.95 mg/dL 0.66-1.25 MAIN LAB , [address] [place] [address] [place] [address] 12:01pm Creatinine June 0.97 mg/dL 0.66-1.25 MAIN LAB , [address] [place] [address] 2019 [place] [address] 12:25am Glomerular > 60 >60.0 MAIN LAB, [address] [place] [address] Filtration 2020 mL/[place] [address] Rate Calc 3:40am Glomerular Parker > 60 >60.0 MAIN LAB, [address] [place] [address] Filtration 2019 mL/[place] [address] Rate Calc 12:01pm Glomerular October > 60 >60.0 MAIN LAB, [address] [place] [address] Filtration 2019 mL/[place] [address] Rate Calc 12:25am Glucose Level December 121 mg/dL 70-100 MAIN L AB, [address] [place] [address] [place] [address] 3:40am Glucose Level August 101 mg/dL 70-100 MAIN L AB, [address] [place] [address] [place] [address] 12:01pm Glucose Level June 125 mg/dL 70-100 MAIN L AB, [address] [place] [address] 2019 [place] [address] 12:25am Calcium Level December 8.5 mg/dL 8.4-10.2 MAIN L AB, [address] [place] [address] [place] [address] 3:40am Calcium Level August 9.4 mg/dL 8.4-10.2 MAIN L AB, [address] [place] [address] [place] [address] 12:01pm Calcium Level June 9.1 mg/dL 8.4-10.2 MAIN L AB, [address] [place] [address] 2019 [place] [address] 12:25am Calcium August 9.6 mg/dL 8.4-10.2 MAIN LAB, [address] [place] [address] [place] [address] Albumin 12:01pm Calcium June 9.3 mg/dL 8.4-10.2 MAIN LAB, [address] [place] [address] [place] [address] Albumin 12:25am Magnesium December 2.0 mg/dL 1.6-2.3 MAIN LAB, [address] [place] [address] [place] [address] 3:40am Total Parker 0.5 mg/dL 0.2-1.3 MAIN LAB, [address] [place] [address] Bilirubin 2019 [facility] [place] [address] 12:01pm Total June 0.3 mg/dL 0.2-1.3 MAIN LAB, [address] [place] [address] Bilirubin 2019 [place] [address] 12:25am Aspartate August 34 U/L MAIN LAB, [address] [place] [address] Amino Transf [place] [address] (AST/SGOT) 12:01pm Aspartate June 34 U/L MAIN LAB, [address] [place] [address] Amino Transf 2019 [place] [address] (AST/SGOT) 12:25am Alanine August 50 U/L <50 As of 01/09/20, MAIN L AB, [address] [place] [address] Aminotransfer 2019 the Reference [place] [facility] [place] [address] ase 12:01pm Range for (ALT/SGPT) ALT/SGPT for adult patients has been updated. The Reference Range for ALT/SGPT has not been established for patients <18 years of age. Alanine June 48 U/L <50 As of 01/09/20, MAIN L AB, [address] [place] [address] [address] [place] [address] ase 12:25am Range for (ALT/SGPT) ALT/SGPT for adult patients has been updated. The Reference Range for ALT/SGPT has not been established for patients <18 years of age. Troponin I December < 0.012 0-0.034 Reference Range: MA IN LAB, [address] [place] [address] 2020 ng/mL <0.034 ng/[place] [place] [address] 3:40am Cut-off 0.120 ng/mLThe results of this assay can be falsely decreased in patients who consume Biotin. Troponin I June < 0.012 0-0.034 Reference Range: MA IN LAB, [address] [place] [address] 2019 ng/mL <0.034 ng/[place] [address] 12:25am Cut-off 0.120 ng/mLThe results of this assay can be falsely decreased in patients who consume Biotin. Total Protein August 7.3 g/dL 6.3-8.2 MAIN L AB, [address] [place] [address] 2019 [place] [address] 12:01pm Total Protein June 7.4 g/dL 6.3-8.2 MAIN L AB, [address] [place] [address] 2019 [place] [address] 12:25am Albumin August 4.0 g/dL 3.5-5.0 MAIN LAB, [address] [place] [address] 2019 [place] [address] 12:01pm Albumin June 4.1 g/dL 3.5-5.0 MAIN LAB, [address] [place] [address] 2019 [place] [address] 12:25am Cholesterol August 229 mg/dL 59-199 MAIN LAB , [address] [place] [address] 2019 [place] [address] 12:01pm HDL August 33 mg/dL 40-60 The National MAIN LA B, [address] [place] [address] Cholesterol 2019 Cholesterol [place] [address] 12:01pm Education Program (NCEP) has set the following guidelines (reference values) for cholesterol, HDL:Low HDL: <40 mg/dLNormal: 40-60 mg/dLDesirable: >60 mg/dL LDL August 145.0 0-129 MAIN LAB, [address] [place] [address] Cholesterol 2019 mg/[place] [address] 12:01pm VLDL August 51.0 mg/dL 0-32 MAIN LAB, [address] [place] [address] Cholesterol 2019 [place] [address] 12:01pm Cholesterol/H August 6.93 0-3.9 MAIN L AB, [address] [place] [address] DL Ratio 2019 [place] [address] 12:01pm Triglycerides August 255 mg/dL 0-149 MAIN L AB, [address] [facility] Level 2019 [place] [address] 12:01pm Alkaline August 103 U/L 38-126 MAIN LAB, [address] [place] [address] Phosphatase 2019 [place] [address] 12:01pm Alkaline June 92 U/L 38-126 MAIN LAB, [address] [place] [address] Phosphatase 2019 [place] [address] 12:25am Thyroid August 1.89 mlU/L 0.47-4.68 The results of MAIN LAB, [address] [place] [address] Stimulating [address] [place] [address] Hormone (TSH) 12:01pm be falsely decreased in patients who consume Biotin. SARS-CoV-2 January 19 Negative Negative This test is MAIN L AB, [address] RNA (RT-PCR) 2020 [place] [address] 1:00pm under the Food and Drug Administration's [...] sheets for providers can be found at: [employer]/ 4798/downloadFac t sheets for patients can be found at: [employer]/ 2573/download SARS-CoV-2 November Negative This test is MAIN L AB, [facility] ([facility]) [place] [address] 11:00am under the Food and Drug Administration's [...] sheets for providers can be found at: [employer]/ 9548/downloadFac t sheets for patients can be found at: [employer]/ 8385/download Diagnostic Imaging Reports Report Dictated Date/Time Dictated By Status Radiology Report April 08, 2020 10:52am Tori Millan MD co mpleted [facility] ULTRASOUND REPORT PATIENT NAME: YOLANDA KO [...] 2020 11:17am Tori Millan MD co mpleted [facility] RADIOLOGY REPORT PATIENT NAME: YOLANDA KO 13 [...] 2020 11:18am Tori Millan MD co mpleted [facility] RADIOLOGY REPORT PATIENT NAME: YOLANDA KO 15 DATE OF : 1975 ATTENDING/ER PHYSICIAN: Carolina perez NP ER/ATTENDING PHYSICIAN: PRIMARY CARE PHYS: Out [facility] ADMITTING PHYSICIAN: CONSULTING PHYSICIAN: PROCEDURE DATE: 04/08/20 [...] 2020 9:27am Tori Millan MD c ompleted [facility] ULTRASOUND REPORT PATIENT NAME: YOLANDA OK 15 DATE OF : 1975 ATTENDING/ER PHYSICIAN: Jerome ruiz MD ER/ATTENDING PHYSICIAN: PRIMARY CARE PHYS: Carolina Aguirre NP ADMITTING PHYSICIAN: CONSULTING PHYSICIAN: PROCEDURE DATE: 04/23/20 REPORT STATUS: Signed DICTATING PHYSICIAN: oTri Millan MD REASON FOR EXAM: orchitis STUDY: [...] 04, 2020 2:34pm Jaye Scott MD completed [facility] ULTRASOUND REPORT PATIENT NAME: YOLANDA KO [...] 10, 2020 11:49pm Roscoe Guerrero MD comp [facility] EKG PATIENT NAME: YOLANDA KO 15 DATE OF : 1975 ATTENDING PHYSICIAN: PRIMARY CARE PHYS: Carolina Aguirre WINDSHIELD REPAIR TECHNICIAN DICTATING PHYSICIAN: Roscoe Guerrero MD REPORT STATUS: [...] August 23, 2020 12:30pm Mario Guzmán completed [facility] CAT SCAN REPORT PATIENT NAME: YOLANDA KO 15 DATE OF : 1975 ATTENDING/ER PHYSICIAN: Jj Lopez JR , DO ER/ATTENDING PHYSICIAN: PRIMARY CARE PHYS: Carolina Aguirre WINDSHIELD REPAIR TECHNICIAN ADMITTING PHYSICIAN: CONSULTING PHYSICIAN: PROCEDURE DATE: 08/23/20 [...] 27, 2020 3:01pm Tori Millan MD completed [facility] ULTRASOUND REPORT PATIENT NAME: YOLANDA KO [...] December 23, 2020 3:28am Mario Belcher completed [facility] EKG PATIENT NAME: YOLANDA KO 13 [...] January 25, 2021 2:02pm Marty Sweet MD [place] [id number] OPERATIVE PROCEDURE REPORT PATIENT: Yolanda Ko DATE: 01/25/2021 MR# [id number] PROCEDURE: Colonoscopy, diagnostic VISIT ID: [id number] ENDOSCOPIST: Dr. 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 Digital rectal exam performed and revealed no a bnormalities of the rectum. The [id number] ([id number] endoscope was intro duced through the anus [...] complicati ons. IMPRESSION: Normal colonoscopy RECOMMENDATIONS: Call [phone] for prob lems REPEAT EXAM: Return in 10 years Colonos copy or as needed for changes.. CC: Jj Lopez Jr eSigned: Dr. Renzo Sweet MD 1 2:04 PM Name: Yolanda Ko, [id number] Radiology Report February 01, 2021 4:27pm Kenzie Padgett MD comp [facility] ULTRASOUND REPORT PATIENT NAME: YOLANDA KO [...] have a copy on file here at [facility]? No O ctober 2018 1:44pm Pt has a Living Will? No June 25, 2019 1:44pm Do we have a copy on file here at [facility]? No O ctober 2018 1:44pm Pt has a Power of Hemodialysis Technician? No June 1:44pm Do we have a copy on file here at [facility]? No O ctober 2018 1:44pm Chief Complaint [...] Arrival/Admit Discharge/Depart Provider(s ) Date Date Departed [facility] April 08, 2020 April 08, 2020 [facility] 12:35am 1:22am Group-Emergency Department Departed [facility] April 08, 2020 April 08, 2020 [facility] Emergency Medical 10:03am 12:39pm Group-Emergency Department Departed [facility] April 08, 2020 April 08, 2020 Manuel Figueroa [facility] 10:06am 10:07am , SRIDEVI [facility] Departed [facility] April 08, 2020 April 08, 2020 [facility] Emergency Medical 9:44pm 10:10pm Group-Emergency Department Departed [facility] April 09, 2020 April 09, 2020 Jerome Joshi Physician/Prov Medical 8:23am 9:40am MD [facility] Visit n Urology Services Departed [facility] April 23, 2020 April 23, 2020 Jerome Joshi [facility] 8:43am 8:44MD leobardo [facility] Departed [facility] June 04June 04, 2020 Jerome Joshi [facility] 2019 2:17pm 2:18pm MD [facility] Departed [facility] June 10, 2020 June 11, 2020 null Emergency Medical 11:46pm 1:27am Group-Emergency Department Departed [facility] June 18, 2020 June 18, 2020 CARLOTTA Morales [facility] 12:10pm 12:11pm Lio hernandez [facility] Departed [facility] June 29June 29, 2020 Jerome Joshi Physician/Prov Medical 2019 2:41pm 3:05pm MD [facility] Visit n Urology Services Departed [facility] August 20, August 20, 2020 Quinn Lopez JR, [facility] Medical 2019 5:17pm 5:18pm [facility] Departed [facility] August 23, August 23, 2020 Quinn Lopez JR, [facility] 2019 12:13pm 12:14pm DO [facility] Departed [facility] August 27, August 27, 2020 Jerome Joshi [facility] 2019 3:26pm 3:27MD carlo [facility] Departed [facility] September 17, 2020 September 17, 2020 Dedra Eastman Physician/[facility] Medical 3:47pm 4:46pm BRENDA [facility] Visit Medicine Departed [facility] September 24, September 24, 2020 Jerome Joshi Physician/[facility] Medical 2020 12:32pm 12:54pm MD [facility] Visit n Urology Services Departed [facility] December 07, 2020 December 07, 2020 Melody Robles Clinical Medical 7:45am 7:46am [employer] [facility] Departed [facility] December 23, 2020 December 23, 2020 null Emergency Medical 3:24am 5:05am Group-Emergency Department Departed [facility] January 19, 2021 January 19, 2021 [facility] 5:02am 5:03am MD Micki [facility] Departed [facility] January 25, 2021 January 25, 2021 [facility] 12:06pm 3:09pm MD Micki [facility] Group-Surgical Services Departed [facility] February 01, 2021 February 01, 2021 Jerome velez [facility] 3:29pm 3:30pm MD [facility] Departed [facility] February 10, 2021 February 10, 2021 Jerome velez Physician/[facility] Medical 2:44pm 3:07pm MD [facility] Visit n Urology Services Recent Diagnosis [...] Insurance Providers Guarantor YOLANDA Tai ANNALISA Address [address] [place] [id number] Contact Info. Home Phone: Payer Policy Id Coverage Id Subscriber's Subscriber Id Effective E xpiration Name Date Date [place]ICA[place] [id number] YOLANDA KO [id number] [place] SELF PAY Self N/A Plan of Treatment [...] Lopez Work Phone: Alicia FUENTES JR, DO [address] [place] [phone] Timothy Work Phone: [phone] Manuel Figueroa NP [facility] [address] Manuel Aguirre Work Phone: [phone] Manuel Figueroa NP [facility] [address] Jerome Willoughby Work Phone: [facility] MD Adi [address] [facility] [address] [address] Out Future Procedures Future procedure information [...]
--- OUTSIDE RECORDS SUMMARY | 2022-03-21 09:32 | XMS_ITS | Continuity of Care Document ---
:1975 Author Organization [facility] Address [address] [place] [address] Phone Care Team Providers Name Role Phone Jj Lopez JR Primary Care Provider Melody Robles Attending Provider MD Renzo Sweet Attending Provider MD Kwaku Joshi Attending Provider Jj Lopez JR Attending Provider SRIDEVI Morel Attending Provider DO Mackenzie Suarez Attending Provider Chief Complaint and Reason for Visit Chief Complaint Contact with and (suspected) exposure to COVID-19 PALPITATIONS Contact with and (suspected) exposure to COVID-19 Hemorrhage of anus and rectu m epididymitis Follow up EYE COMPLAINT/SOB S/P EAR INFECTION Shortness of Breath Thyroiditis, unspecified ALL COVID SYMPTOMS NEW PATIENT 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 Follow Up Reason for Visit Change in bowel function Morbid obesity due to excess calories Smoker Epididymo-orchitis Hearing loss, bilateral Multinodular goiter (nontoxi c) Morbid obesity due to excess calories Multinodular goiter (nontoxi c) Smoker Allergies, Adverse Reactions, Alerts Allergen Type Severity Reaction Last Updated Verified Status cephalexin Allergy gi upset November 23, 2021 8:05am Yes Active Social History Smoking Status Status Start Date End Date Date of Observat ion Smokes tobacco daily (finding) M 2021 8:01am Observation Status Observation Response Date of Response Alcohol Use Yes September 29, 2021 1 0:03pm alcohol intake frequency holidays/special occasions September 29, 2021 10:03pm only Substance/Street Drug Use Yes September 29, 2021 10:03pm Substance Use Treatment No September 29 10:03pm substance use type marijuana September 29, 2021 1 0:03pm Smoking Status Current every day smoker November 17 9:01am Additional Data Assigned Sex Male Family History [...] Levofloxacin Disconti 500 MG PO DAILY 10 10 Decembe Decemb nued r 21st, er 2019, 9:34am 2019 1:01am Omeprazole Active 40 MG PO TWICE A DAY 60 November 23, 2021 8:25am Gabapentin Disconti 300 MG PO THREE TIMES March nu A DAY 2019 12:45am 8:06am Ibuprofen Active 600 MG PO THREE TIMES Tonya A DAY 2019 12:45am Levofloxacin Disconti 750 MG PO DAILY 19 March Octobe nued , r 2019, 1:03am 2019 2:44pm Metoprolol Active 50 MG PO TWICE A DAY 60 February Tartrate 2020 1:21pm Erythromycin Disconti 1 APPLIC LEFTEYE DAILY 3.5 February nued , 2020 1:22pm 8:06am Cyclobenzapr Active MG TABLET Decembe ine r 2020 12:11am Gabapentin Active MG TABLET Decembe r 2020 12:11am Meloxicam Active MG TABLET Decembe r 2020 12:11am Amoxicillin Disconti 875 MG PO TWICE A DAY 14 7 Decembe Dec emb nued r , er 2021 08, 2:10am 2020 1:01am Amoxicillin- Active 1 TAB PO TWICE A DAY September, Clavulanate 2021 (Augmentin) 9:20pm 875-125 mg tablet Immunizations Immunization Event Not Given Dose Mine 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 Lot Number Vac cine Date Reason Number Informatio n Statement (VIS) Detail Covid-January 07mcg/0.3ml , Pfizer (Purple 2020 top) Covid-January 19 30mcg/0.3ml 2020 Pfizer (Purple top) Procedures Procedure Date Performed Status US Thyroid Soft Tissue Neck September 15, 2021 3:00pm complet ed US Gd FNA Breast/Node/Thyroid November 11, 2021 12:00pm comple anselmo CT Chest w/o Contrast September 08, 2021 6:00pm completed DIAGNOSTIC COLONOSCOPY January 25, 2021 active INTERFACE ELECTROCARDIOGRAM December 23, 2020 3:38am complete d US Testicles (Scrotal) February 01, 2021 3:30pm completed Relevant Diagnostic Tests and/or Laboratory Data Laboratory Results Test Date/Time Result Interpretation Reference Result Comment Performing Range Site White Blood December 8.70 4.8-10.8 MAIN LAB Count 2020 1000/mm3 [address] [facility] 3:40am [place] [address] Red Blood 5.05 M/mm3 4.70-6.00 MAIN LAB Count 2020 [address] [facility] 3:40am [place] [address] Hemoglobin 14.3 g/dL 14.0-18.0 MAIN LAB 2020 [address] [facility] 3:40am [place] [address] Hematocrit 43.3 % 42-52 MAIN LAB 2020 [address] [facility] 3:40am [place] [address] Mean December 85.7 fL 80.0-94.0 MAIN LAB Corpuscular 2020 133 [facility] Volume 3:40am [place] [address] Mean December 28.3 pg 27-31 MAIN LAB Corpuscular 2020 133 [facility] Hemoglobin 3:40am . [place] [address] Mean December 33.0 g/dL 33-37 MAIN LAB Corpuscular 2020 133 [facility] Hemoglobin 3:40am . [place] [address] Concent Red Cell December 13.9 % 11.5-14.5 MAIN LAB Distribution 2020 133 [facility] Width 3:40am [place] [address] Platelet December 258 140-440 MAIN LAB Count 2020 1000/mm3 [address] [facility] 3:40am [place] [address] Mean December 10.1 fL 7.4-10.4 MAIN LAB Platelet 2020 [address] [facility] Volume 3:40am [place] [address] Neutrophils 57.1 % 40.0-72.0 MAIN LAB (%) (Auto) 2020 133 [facility] 3:40am [place] [address] Lymphocytes 33.7 % 17-45 MAIN LAB (%) (Auto) 2020 [address] [facility] 3:40am [place] [address] Monocytes 6.0 % 3-11 MAIN LAB (%) (Auto) 2020 [address] [facility] 3:40am [place] [address] Eosinophils 2.2 % 0-3 MAIN LAB (%) (Auto) 2020 133 [facility] 3:40am [place] [address] Basophils 0.7 % 0-1 MAIN LAB (%) (Auto) 2020 [address] [facility] 3:40am [place] [address] Immature 0.3 % 0-1 MAIN LAB Granulocyte [address] % (Auto) 3:40am [place] [address] Neutrophils 4.97 1.4-6.5 MAIN LAB # (Auto) 2020 1000/mm3 [address] [facility] 3:40am [place] [address] Lymphocytes 2.93 1.2-3.4 MAIN LAB # (Auto) 2020 1000/mm3 [address] [place] [address] 3:40am [place] [address] Monocytes # 0.52 0.0-0.8 MAIN LAB (Auto) 2020 1000/mm3 [address] [facility] 3:40am [place] [address] Eosinophils 0.19 0.0-0.7 MAIN LAB # (Auto) 2020 1000/mm3 [address] [facility] 3:40am [place] [address] Basophils # 0.06 0.0-0.1 MAIN LAB (Auto) 2020 1000/mm3 [address] [place] [address] 3:40am [place] [address] Absolute 0.0 0-1 MAIN LAB Immature 2020 [address] [facility] Granulocyte 3:40am [place] [address] (auto Differential Automated MAIN LA B Method 2020 [address] [facility] 3:40am [place] [address] Sodium Level December 140 mmol/L 137-145 MAIN L AB 2020 [address] [facility] 3:40am [place] [address] Potassium December 3.5 mmol/L 3.6-5.0 MAIN LAB Level 2020 [address] [facility] 3:40am [place] [address] Chloride December 105 mmol/L 98-107 MAIN LAB Level 2020 [address] [facility] 3:40am [place] [address] Carbon December 29 mmol/L 22-30 MAIN LAB Dioxide [address] [place] [address] Level 3:40am [place] [address] Anion Gap December 6 7-16 MAIN LAB [address] [place] [address] 3:40am [place] [address] Blood Urea December 11 mg/dL 8-26 MAIN LAB Nitrogen [address] [place] [address] 3:40am [place] [address] Creatinine December 0.85 mg/dL 0.66-1.25 MAIN LAB [address] [place] [address] 3:40am [place] [address] Glomerular December > 60 >60.0 MAIN LAB Filtration 2020 mL/min [address] [place] [address] Rate Calc 3:40am [place] [address] Glucose December 121 mg/dL 70-100 MAIN LAB Level [address] [place] [address] 3:40am [place] [address] Calcium December 8.5 mg/dL 8.4-10.2 MAIN LAB Level [address] [place] [address] 3:40am [place] [address] Magnesium December 2.0 mg/dL 1.6-2.3 MAIN LAB Level [address] [place] [address] 3:40am [place] [address] Troponin I December < 0.012 0-0.034 Reference MAIN LAB 2020 ng/mL Range: <0.[address] [place] [address] 3:40am ng/[place] [address] Cut-off 0.120 ng/mLThe results of this assay can be falsely decreased in patients who consume Biotin. SARS-CoV-2 November Negative Negative This test is MAIN L AB RNA (RT-PCR) 2020 only for use [address] [place] [address] 11:00am [place] [address] and Drug Administration' s (FDA) Emergency Use [...] sheets for providers can be found at: Colingo.Interfolio/Shoutitout//downloadF act sheets for patients can be found at: [place].gov/download SARS-CoV-2 January 19 Negative This test is MAIN L AB RNA (RT-PCR) 2020 only for use [address] [place] [address] 1:00pm under the [facility] [place] [address] and Drug Administration' s (FDA) Emergency Use [...] sheets for providers can be found at: [employer]ingo.Interfolio/Shoutitout/downloadF act sheets for patients can be found at: Colingo.Interfolio//download SARS-CoV-2 September Negative Negative Note: This MAIN LAB RNA (RT-PCR) 2021 RT-PCR assay is [facility] 9:54pm intended for [address] [facility] the [place] [address] qualitative detection of nucleic acid from SARS-CoV-2.This test has not been FDA cleared or approved. This test has been authorized by the FDA under an Emergency Use Authorization (EUA) for use by authorized laboratories. Fact sheets for providers can be found at: Colingo.Interfolio/Shoutitout//downloadF act sheets for patients can be found at: [place]ingo.gov/Shoutitout//download Diagnostic Imaging Reports Report Dictated Date/Time Dictated By Status Electrocardiogram December 23, 2020 3:28am Mario Belcher completed [facility] EKG PATIENT NAME: YOLANDA FANG 15 DATE [...] 0458 Report Dictated Date/Time Dictated By Status Radiology Report February 01, 2021 4:27pm PhD Kenzie Padgett MD completed [facility] ULTRASOUND REPORT PATIENT NAME: YOLANDA FANG [...] 10, 2021 10:06pm Sunshine Montgomery MD completed [facility] CAT SCAN REPORT PATIENT NAME: YOLANDA [...] 16, 2021 8:21am Arnie Murillo MD completed [facility] ULTRASOUND REPORT PATIENT NAME: YOLANDA FANG 15 DATE OF : 1975 ATTENDING/ER PHYSICIAN: Les Yoon ER/ATTENDING PHYSICIAN: PRIMARY CARE PHYS: Jj Lopez JR, DO ADMITTING PHYSICIAN: CONSULTING PHYSICIAN: PROCEDURE DATE: 09/15/21 REPORT STATUS: Signed with Addenda DICTATING PHYSICIAN: Arnie Murillo MD REASON FOR EXAM: Thyroiditis, unspecified ADDENDUM EXAM: US HEAD NECK SOFT TISSUE CLINICAL HISTORY: Thyroiditis COMPARISON: CT 09/08/2020 TECHNIQUE: Grayscale imaging and color Doppler ultrasound of the thyroid gland was performed. FINDINGS: The right thyroid lobe is not enlarged and measures 5.4 x 2.1 x 2.4 cm. The right thyroid parenchyma is homogeneous. There is a 4 x 3 x 2 mm colloid cyst at the superior pole. There is a 9 x 7 x 9 mm solid nodule with peripheral macrocalcifications of the inferior pole of the right thyroid, TIRADS-4. The color Doppler blood flow in the right th yroid lobe is within normal limits. The left thyroid lobe is enlarged and m easures 7.2 x 3.5 x 3.8 cm. The left thyroid parenchyma is homogeneous. There is a solid, hypoechoic, smoothly marginated 4.5 x 3.8 x 2.9 cm nodule, TI RADS-4. The color Doppler blood flow in the left thyroid lobe is within normal l imits. The thyroid isthmus is thickened and me asures up to 11 mm in AP dimension. There is a 8 x 7 x 4 mm colloid cyst. No lymphadenopathy is identified in the visualized neck adjacent the thyroid gla nd. IMPRESSION: 1. Recommend fine-needle aspiration of the TIRADS-4 left thyroid nodule. Recommend annual follow-up for the TI-RA DS 4 right thyroid nodule. 2. Enlarged thyroid. Addended on: 11/11/21 1111 by Arnie Murillo MD EXAM: US HEAD NECK SOFT TISSUE CLINICAL [...] cyst. No lymphadenopathy is identified in the v isualized neck adjacent the thyroid glan d. IMPRESSION: 1. Recommend fine-needle aspiration of the TIRADS-4 left thyroid nodule. Recommend annual follow-up for the TI-RA DS 4 right thyroid nodule. dd: 09/16/21 0821 <Electronically signed by Arnie brasher MD in OV> 09/16/21 0847 Report Dictated Date/Time Dictated By Status Radiology Report November 11, 2021 1:09pm Arnie Murillo MD completed [facility] ULTRASOUND REPORT PATIENT NAME: YOLANDA FANG 15 DATE OF : 1975 ATTENDING/ER PHYSICIAN: Mackenzie hernandez DO ER/ATTENDING PHYSICIAN: PRIMARY CARE PHYS: Jj Lopez JR, DO ADMITTING PHYSICIAN: CONSULTING PHYSICIAN: PROCEDURE DATE: 11/11/21 REPORT STATUS: Signed DICTATING PHYSICIAN: Arnie Murillo MD REASON FOR EXAM: E04.2 - Nontoxic multinodular goiter EXAM: Ultrasound-guided left thyroid nod ule fine-needle aspiration HISTORY: Left thyroid nodule ANESTHESIA: local lidocaine 1%. TECHNIQUE: Following an explanation of the risks, benefits, and alternatives of the procedure, informed consent was obtained from the patient. [place] protocol including a timeout was performed prior to the start of the procedure. The patient was positioned supine on e procedure table. The anterior neck was sterilely prepped and draped in the usua l sterile fashion utilizing 2% chlorhexidine solution and sterile drape s. Preliminary ultrasonography of the left thyroid gland utilizing a sterile p robe cover demonstrated a left thyroid nodule which was targeted for fine-needl e aspiration. The planned skin access site in the left anterior neck was marke d with a marker utilizing ultra sonographic guidance. Local anesthesia w as achieved in the planned left anterior neck skin access site utilizing lidocain e 1%. A 25-gauge hypodermic needle was taken and advanced to the left thyroid n odule utilizing an anterior approach under direct ultrasound guidance. A fine -needle aspirate of the left thyroid nodule was obtained with the needle and directly submitted to the professor of pathology who was present for the pro cedure. A total of four passes were made in this fashion and directly submitted t o the professor of pathology who was present for the procedure. The needle wa s removed and hemostasis achieved with manual compression. A sterile dressing w as applied. The patient tolerated the procedure wel l without immediate postprocedural complications. The patient was discharge d from the department in good condition. IMPRESSION: Technically successful ultrasound-guide d fine-needle aspiration of the left thyroid nodule. dd: 11/11/21 1309 <Electronically signed by Arnie brasher MD in OV> 11/11/21 1312 Vital Signs Vital Reading Result Reference Range Collection Date/ Time Weight 201.84 kg December 23, 2020 3:34am [...] (Body Mass Index) 56.2 kg/m2 January 13, 021 8:40am Inhaled oxygen flow rate 3 L/min January 2:10pm Heart Rate 92 /min 60-100 February 10, 2021 2 :49pm Respiratory rate 20 /min -February 10, 2021 2:49pm BP Systolic 128 mm[Hg] 100-140 February 10, 2021 2 :49pm BP Diastolic 98 mm[Hg] 50-85 February 10, 2021 2 :49pm Weight 198.67 kg February 22, 2021 12:55pm Body Temperature 97.4 [degF] 97.6-99.6 February 22, 2021 12:55pm Heart Rate 108 /min 60-100 February 22, 2021 12:55pm Respiratory rate 22 /min -February 22, 2021 12:55pm Oxygen saturation by Pulse 97 % 95-100 February 22, 2021 12:55pm oximetry BP Systolic 144 mm[Hg] 100-140 February 22, 2021 12:55pm BP Diastolic 101 mm[Hg] 50-85 February 22, 2021 12:55pm Height 76 [in_i] August 14 12:07am Weight 196.40 kg August 14 12:07am Body Temperature 98.4 [degF] 97.6-99.6 August 14, 2 021 12:07am Heart Rate 88 /min 60-100 August 14 2:30am Respiratory rate 22 /min -August 14, 2 021 2:30am Oxygen saturation by Pulse 98 % 95-100 Decem 2020 2:30am oximetry BP Systolic 160 mm[Hg] 100-140 August 14 2:30am BP Diastolic 100 mm[Hg] 50-85 August 14 2:30am Height 76 [in_i] September 29 9:52pm Weight 90.71 kg September 29 9:52pm Body Temperature 98.2 [degF] 97.6-99.6 September 29, 2 022 9:52pm Heart Rate 100 /min 60-100 September 29 9:52pm Respiratory rate 18 /min 12-September 29, 2 022 9:52pm Oxygen saturation by Pulse 100 % 95-100 2021 9:52pm oximetry BP Systolic 159 mm[Hg] 100-140 September 29 9:52pm BP Diastolic 89 mm[Hg] 50-85 September 29 9:52pm BP Systolic 130 mm[Hg] 100-140 October 11 12:44pm BP Diastolic 90 mm[Hg] 50-85 October 11 12:44pm Height 76 [in_i] November 23, 2021 8:06am Weight 90.71 kg November 23, 2021 8:06am Heart Rate 86 /min 60-100 November 23, 2021 8:06am Oxygen saturation by Pulse 99 % 95-100 November 23, 2021 8:06am oximetry BP Systolic 142 mm[Hg] 100-140 November 23, 2021 8:06am BP Diastolic 90 mm[Hg] 50-85 November 23, 2021 8:06am BMI (Body Mass Index) 24.3 kg/m2 November 8:06am Advance Directives Advance Directive Response Recorded Date/Time Does patient have an Advanced Directive? No June 25, 2019 1:44pm Do we have a copy on file here at [facility]? No O ctober 2018 1:44pm Pt has a Living Will? No June 25, 2019 1:44pm Do we have a copy on file here at [facility]? No O ctober 2018 1:44pm Pt has a Power of Educator Senior Clinical? No June 1:44pm Do we have a copy on file here at [facility]? No O ctober 2018 1:44pm Insurance Providers Guarantor YOLANDA L FANG Address [address] [place] [address] Contact Info. 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 Dep[facility] January 25, 2021 January 25, 2021 3:09pm Kd pineda Surgical Day Medical 12:06pm MD [facility]Surgical Services Departed [facility] February 01, 2021 February 01, 2021 3:30pm Jerome cordova [facility] 3:29pm Mario Joshi [facility] Departed [facility] February 10, 2021 February 10, 2021 3:07pm Jerome cordova Physician/Prov Medical 2:44pm MD Adi ider [facility] Visit n Urology Services Departed [facility] February 22, 2021 February 22, 2021 null Emergency Medical 12:47pm 1:38pm Group-Emergency Department Departed [facility] August 14, 2021 August 14, 2021 nul l Emergency Medical 12:02am 2:34am Group-Emergency Department Departed [facility] September 08September 08, 2021 Quinn Lopez [facility] 2020 6:01pm 6:02pm DO RUDDY [facility] Departed [facility] September 15, 2021 September 15, 2021 Kenna Morel [facility] 2:43pm 2:44pm SRIDEVI [facility] Departed [facility] September 29, 2021 September 29, 2021 nul l Emergency Medical 7:31pm 10:12pm Group-Emergency Department Departed [facility] October 11, 2021 October 11, 2021 Anibal Mandel Physician/[facility] 12:31pm 1:03pm DO vandana Suarez [facility] Visit n ENT Departed [facility] November 11, 2021 November 11, 2021 Mackenzie Mandel [facility] 11:48am 11:49am DO Erick [facility] Departed [facility] November 23, 2021 November 23, 2021 Mackenzie Mandel Physician/[facility] 8:02am 8:47am DO vandana Suarez [facility] Visit n ENT Recent Diagnosis Onset Date Change in bowel function Morbid obesity due to excess calories Smoker Epididymo-orchitis Hearing loss, bilateral Multinodular goiter (nontoxic) Morbid obesity due to excess calories Multinodular goiter (nontoxic) Smoker Functional Status Observation Response Date Recorded Living Situation Home September 29, 2021 1 0:08pm With Family September 29, 2021 1 0:08pm Mental Status Observation Response Date Recorded Speech Appropriate September 29, 2021 1 0:00pm Comprehension Ability Understands Concepts February 22, 2021 1 :05pm Mood/Behavior Appropriate February 22, 2021 1:05 pm Assessments Diagnosis Onset Date Resolution Status Change in bowel function acute Morbid obesity due to excess calories chronic Smoker chronic Epididymo-orchitis acute Hearing loss, bilateral chronic Multinodular goiter (nontoxic) c hronic Morbid obesity due to excess calories chronic Multinodular goiter (nontoxic) c hronic Smoker chronic Plan of Treatment Epididymo-orchitis Plan Likely left [...] Work Phone: Alicia FUENTES JR, DO [address] [place] [address] Jj Lopez Work Phone: Alicia FUENTES JR, DO [address] [place] [address] 8 Jj Lopez Work Phone: Alicia FUENTES JR, DO [address] [place] [address] 8 Jj Lopez Work Phone: Alicia FUENTES JR, DO [address] [place] [address] Future Procedures Future procedure information is unavailable Future Medications Future medication information is unavailable Patient Instructions Palpitations ([facility]) COVID 19 General Instructions- decrease the spread of coronavirus ([facility]) COVID 19 General Instructions- decrease the spread of coronavirus ([facility]) High Blood Pressure ([facility]) Conjunctivitis ([facility]) ED COVID 19 General Instructions- decrease the spread of coronavirus ([facility]) Ear Infection ED Viral Syndrome ([facility]) Ear Infection ED Thyroidectomy Goals Acute Goals Patient remains free from: [...]
--- OUTSIDE RECORDS SUMMARY | 2022-03-21 09:32 | XMS_ITS | Continuity of Care Document ---
:1975 Author Organization [facility] Address [address] [place] [address] Phone Care Team Providers Name Role Phone PCP, of Choice Primary Care Provider Unavailable Out of Town, Provider Primary Care Provider Unavailable Carolina Aguirre Attending Provider Allergies, Adverse Reactions, Alerts Allergen Type Severity Reaction Last Updated Verified Status cephalexin Allergy June 25, 2019 1:17pm Yes Active Medications Medication Status Dose Units Route Sig Qty Days Start End Instruct ions Date Date Gabapentin Active 300 MG PO THREE March TIMES A 2019 12:45am Ibuprofen Active 600 MG PO THREE March TIMES A 2019 12:45am Levofloxacin Active 750 MG PO DAILY 10 April 08, 2020 1:03am Problems Active Problems Medical Problem Onset Date Status Testicular abscess Active Left epididymitis Active Inactive/Resolved Problems Medical Problem Onset Date Status Vaso-vagal reaction Resolved Procedures Procedure Date Performed Status Hip [...] 08, 9.22 4.8-10.8 MAIN [place] B, [facility] 2019 1000/mm3 [facility] [address] 12:03pm White Blood June 7.25 4.8-10.8 MAIN LAB , [address] [place] [address] 2018 1000/mm3 [facility] [place] [address] 1:32pm Red Blood April 08, 5.22 M/mm3 4.70-6.00 MAIN LAB , [address] [place] [address] 2019 [place] [address] 12:03pm Red Blood June 5.10 M/mm3 4.70-6.00 MAIN LAB, [address] [place] [address] 2018 [facility] [place] [address] 1:32pm Hemoglobin April 08, 14.7 g/dL 14.0-18.0 MAIN LAB , [address] [place] [address] 12:03pm Hemoglobin June 14.2 g/dL 14.0-18.0 MAIN LAB, [address] [place] [address] 2018 [facility] [place] [address] 1:32pm Hematocrit April 08, 45.9 % 42-52 MAIN LAB , [address] [place] [address] 2019 [place] [address] 12:03pm Hematocrit June 43.7 % 42-52 MAIN LAB, [address] [place] [address] 2018 [facility] [place] [address] 1:32pm Mean April 08, 87.9 fL 80.0-94.0 MAIN LAB, [address] [place] [address] Corpuscular 2019 [place] [address] Volume 12:03pm Mean June 85.7 fL 80.0-94.0 MAIN LAB, [address] [place] [address] Corpuscular 2018 [place] [address] Volume 1:32pm Mean April 08, 28.2 pg 27-31 MAIN LAB, [address] [place] [address] Corpuscular 2019 [place] [address] Hemoglobin 12:03pm Mean June 27.8 pg 27-31 MAIN LAB, [address] [place] [address] Corpuscular 2018 [place] [address] Hemoglobin 1:32pm Mean June 32.5 g/dL 33-37 MAIN LAB, [address] [place] [address] Corpuscular 2018 [place] [address] Hemoglobin 1:32pm Concent Mean April 08, 32.0 g/dL 33-37 MAIN LAB, [address] [place] [address] [place] [address] Hemoglobin 12:03pm Concent Red Cell June 13.6 % 11.5-14.5 MAIN LAB, [address] [place] [address] [place] [address] Width 1:32pm Red Cell April 08, 14.0 % 11.5-14.5 MAIN LAB, [address] [place] [address] [place] [address] Width 12:03pm Platelet Count April 08, 284 140-440 MAIN LAB, [address] [place] [address] 2019 1000/mm3 [place] [address] 12:03pm Platelet Count June 249 140-440 MAIN LAB, [address] [place] [address] 2018 1000/mm3 [place] [address] 1:32pm Mean Platelet June 10.4 fL 7.4-10.4 MAIN L AB, [address] [place] [address] [place] [address] 1:32pm Mean Platelet April 08, 10.4 fL 7.4-10.4 MAIN LAB, [address] [place] [address] [place] [address] 12:03pm Neutrophils June 59.3 % 40.0-72.0 MAIN LAB , [address] [place] [address] (%) (Auto) [address] [place] [address] 1:32pm Neutrophils April 08, 60.7 % 40.0-72.0 MAIN LA B, [address] [place] [address] (%) (Auto) [address] [place] [address] 12:03pm Lymphocytes April 08, 28.7 % 17-45 MAIN LA B, [address] [place] [address] (%) (Auto) [address] [place] [address] 12:03pm Lymphocytes June 31.0 % 17-45 MAIN LAB , [address] [place] [address] (%) (Auto) [address] [place] [address] 1:32pm Monocytes (%) April 08, 6.4 % 3-11 MAIN LAB, [address] [place] [address] (Auto) [address] [place] [address] 12:03pm Monocytes (%) June 6.6 % 3-11 MAIN L AB, [address] [place] [address] (Auto) 2018 [place] [address] 1:32pm Eosinophils June 1.8 % 0-3 MAIN LAB , [address] [place] [address] (%) (Auto) [address] [place] [address] 1:32pm Eosinophils April 08, 2.7 % 0-3 MAIN LA B, [address] [place] [address] (%) (Auto) [address] [place] [address] 12:03pm Basophils (%) April 08, 0.7 % 0-1 MAIN LAB, [address] [place] [address] (Auto) 2019 [place] [address] 12:03pm Basophils (%) October 0.7 % 0-1 MAIN L AB, [address] [place] [address] (Auto) 2018 [place] [address] 1:32pm Immature April 08, 0.8 % 0-1 MAIN LAB, [address] [place] [address] Granulocyte % 2019 [place] [address] (Auto) 12:03pm Immature October 0.6 % 0-1 MAIN LAB, [address] [place] [address] Granulocyte % 2018 [place] [address] (Auto) 1:32pm Neutrophils # June 4.30 1.4-6.5 MAIN L AB, [address] [place] [address] (Auto) 2018 1000/[place]3 [place] [address] 1:32pm Neutrophils # April 08, 5.60 1.4-6.5 MAIN LAB, [address] [place] [address] (Auto) 2019 1000/[place]3 [place] [address] 12:03pm Lymphocytes # April 08, 2.65 1.2-3.4 MAIN LAB, [address] [place] [address] (Auto) 2019 1000/[place]3 [place] [address] 12:03pm Lymphocytes # June 2.25 1.2-3.4 MAIN L AB, [address] [place] [address] (Auto) 2018 1000/[place]3 [place] [address] 1:32pm Monocytes # June 0.48 0.0-0.8 MAIN LAB , [address] [place] [address] (Auto) 2018 1000/[place]3 [place] [address] 1:32pm Monocytes # April 08, 0.59 0.0-0.8 MAIN LA B, [address] [place] [address] (Auto) 2019 1000/[place]3 [place] [address] 12:03pm Eosinophils # June 0.13 0.0-0.7 MAIN L AB, [address] [place] [address] (Auto) 2018 1000/[place]3 [place] [address] 1:32pm Eosinophils # April 08, 0.25 0.0-0.7 MAIN LAB, [address] [place] [address] (Auto) 2019 1000/[place]3 [place] [address] 12:03pm Basophils # June 0.05 0.0-0.1 MAIN LAB , [address] [place] [address] (Auto) 2018 1000/[place]3 [place] [address] 1:32pm Basophils # April 08, 0.06 0.0-0.1 MAIN LA B, [address] [place] [address] (Auto) 2019 1000/[place]3 [place] [address] 12:03pm Absolute April 08, 0.1 0-1 MAIN LAB, [address] [place] [address] Immature 2019 [place] [address] Granulocyte 12:03pm (auto Absolute June 0.0 0-1 MAIN LAB, [address] [place] [address] [place] [address] Granulocyte 1:32pm (auto Differential June Automated MAIN LA B, [address] [place] [address] [place] [address] 1:32pm Differential April 08, Automated MAIN L AB, [address] [place] [address] Method 2019 [place] [address] 12:03pm Sodium Level June 137 mmol/L 137-145 MAIN L AB, [address] [place] [address] [place] [address] 1:32pm Potassium June 3.8 mmol/L 3.6-5.0 MAIN LAB, [address] [place] [address] [place] [address] 1:32pm Chloride Level June 104 mmol/L 98-107 MAIN LAB, [address] [place] [address] [place] [address] 1:32pm Carbon Dioxide June 23 mmol/L 22-30 MAIN LAB, [address] [place] [address] [place] [address] 1:32pm Anion Gap June 10 7-16 MAIN LAB, [address] [place] [address] [place] [address] 1:32pm Blood Urea June 12 mg/dL 8-26 MAIN LAB, [address] [place] [address] [place] [address] 1:32pm Creatinine June 0.82 mg/dL 0.66-1.25 MAIN LAB , [address] [place] [address] [place] [address] 1:32pm Glomerular June > 60 mL/min >60.0 MAIN LA B, 133 [facility] Filtration [address] [place] [address] Rate Calc 1:32pm Glucose Level June 99 mg/dL 70-100 MAIN L AB, [address] [place] [address] [place] [address] 1:32pm Calcium Level June 8.5 mg/dL 8.4-10.2 MAIN L AB, [address] [place] [address] [place] [address] 1:32pm Troponin I June < 0.012 0-0.034 Reference MAIN LAB, [address] [place] [address] 2018 ng/mL Range: [place] [address] 1:32pm <0.034 ng/mL AMI Cut-off 0.120 ng/mLTh e results of this assay can be falsely decreased in patients who consume Biotin. Diagnostic Imaging Reports Report Dictated Date/Time Dictated By Status Electrocardiogram June 25, 2019 1:07pm Ulises [facility] EKG PATIENT NAME: YOLANDA FANG DATE [...] June 25, 2019 1:52pm Mario Gotti completed [facility] RADIOLOGY REPORT PATIENT NAME: YOLANDA FANG [...] [facility] ULTRASOUND REPORT PATIENT NAME: YOLANDA FANG [...] [facility] RADIOLOGY REPORT PATIENT NAME: YOLANDA FANG 15 DATE OF : 1975 ATTENDING/ER PHYSICIAN: Carolina perez WIRE COATING MACHINE OPERATOR ER/ATTENDING PHYSICIAN: PRIMARY CARE PHYS: Out Town [...] [facility] RADIOLOGY REPORT PATIENT NAME: YOLANDA FANG 15 DATE OF : 1975 ATTENDING/ER PHYSICIAN: Carolina perez WIRE COATING MACHINE OPERATOR ER/ATTENDING PHYSICIAN: PRIMARY CARE PHYS: Out Town [...] a copy on file here at [facility]? No O ctober 2018 1:44pm Pt has a Living Will? No June 25, 2019 1:44pm Do we have a copy on file here at [facility]? No O ctober 2018 1:44pm Pt has a Power of Hand Candy Dipper? No June 1:44pm Do we have a copy on file here at [facility]? No O ctober 2018 1:44pm Chief Complaint and Reason for Visit Chief Complaint Back Up TESTICLE PAIN FOLLOW UP US RT HIP PAIN; LBP Encounters Encounter Location(s) Arrival/Admit Date Discharge/Depart Provi ulysses(s) Date Departed [facility] June 25, 2019 June 25, 2019 [facility] 1:09pm 3:45pm Center-Emergency Department Departed [facility] April 08, 2020 April 08, 2020 [facility] Emergency Medical 12:35am 1:22am Center-Emergency Department Departed [facility] April 08, 2020 April 08, 2020 null Emergency Medical 10:03am 12:39pm Center-Emergency Department Registered [facility] April 08, 2020 A [facility] 10:06am SRIDEVI Figueroa [facility] Assessments No Assessments Information Available Functional Status Observation Response Date Recorded Living Situation Home June 25, 2019 3 :45pm Living Situation Home April 08, 2020 12:3 7pm Living Situation Home April 08, 2020 1:22 am With Spouse April 08, 2020 1:22 am Goals Goals may be documented in an alternate section. Mental Status Observation Response Date Recorded Comprehension Ability Understands Concepts April 08, 2020 1 2:50am Medical Equipment No Medical Equipment Information available Insurance Providers Guarantor YOLANDA FANG Address [address] [place] [id number] Contact Info. Home Phone: Payer Policy Id Coverage Id Subscriber's Subscriber Id Effective E xpiration Name Date Date MEDICAID OF [id number] [place] SELF PAY Self N/A Plan of Treatment Future Tests Future scheduled test information is unavailable Pending Tests Pending diagnostic test information is unavailable Future Visits Future appointment information is unavailable Referrals to Other Providers Reason for Referral Start Provider Provider Contact Provider Address Referral Date Information Pcp Estelita Willoughby Work Phone: [facility] Urology MD Adi [address] [facility] , [address] [facility] [address] [place] Future Procedures Future procedure information is unavailable Future Medications Future medication information is unavailable Patient Instructions Epididymitis (MI) COVID 19 General Instructions- decrease the spread of coronavirus ([facility]) COVID 19 General Instructions- decrease the spread of coronavirus ([facility]) Social History Smoking Status Status Date of Observation Smokes tobacco daily (finding) April 08, 2020 12:00pm Observation Status Observation Response Date of Response Alcohol Use No April 08, 2020 12:0 0pm alcohol intake frequency holidays/special occasions only [place] 2019 12:00pm Substance/Street Drug Use No April 08 0 12:00pm Substance Use Treatment No April 08, 2020 12:00pm Smoking Status Current every day smoker April 08, 2020 12:00pm Assigned Sex Male Vital Signs Vital Reading Result Reference Range Collection Date/ Time Weight 190.96 kg June 25 1:13pm Body Temperature 97.4 [degF] 97.6-99.6 June 25, 2 019 1:13pm Heart Rate 98 /min 60-100 June 25 3:45pm Respiratory rate 20 /min 12-June 25, 2 019 3:45pm Oxygen saturation by Pulse 98 [...] 98 mm[Hg] 50-85 April 08, 2020 12:00pm Hospital Discharge Instructions Additional Instructions Be sure to drink plenty of fluids. Return to the ER for any worsening symptoms or concerns.
--- OUTSIDE RECORDS SUMMARY | 2022-03-21 09:32 | XMS_ITS | Continuity of Care Document ---
:1975 Author Organization [facility] Address [address] [place] [address] Phone Care Team Providers Name Role Phone [...] cephalexin Allergy gi upset January 25, 2021 12:44pm Yes Active Medications Medication Status Dose Units [...] 2-3 vw April 08, 2020 10:39am completed Colonoscopy w Anesthesia OPD (Not Applicable) January 25, 2021 1:30pm completed INTERFACE ELECTROCARDIOGRAM December 23, 2020 3:38am complete d US Testicles (Scrotal) August 27, 2020 3:30pm [...] 8:35am Urine Clarity Tonya 31st, Clear (Manual) 2020 8:35am POC Urine April 09, Negative Glucose 2019 8:35am POC Urine April 09, Negative Bilirubin 2019 Confirmation 8:35am Urine Ketones April 09, Negative (Manual) 2019 8:35am Urine April 09, 1.025 Specific 2020 [place] 8:35am (Manual) POC Urine RBC April 09, Trace 2019 Intact 8:35am Urine pH April 09, 5.5 (Manual) 2019 8:35am POC Urine April 09, Negative Protein 2019 Confirmation 8:35am Urine April 09, 0.2 Urobilinogen 2019 (Manual) 8:35am Urine Nitrite April 09, Negative (Manual) 2019 8:35am Urine April 09, Negative Leukocyte 2019 Esterase 8:35am (Manual) White Blood December 8.70 4.8-10.8 MAIN LAB , [address] Count 2020 1000/[place]3 [place] [address] 3:40am White Blood August 12.00 4.8-10.8 MAIN LAB , [address] [place] [address] Street Count 2019 1000/[place]3 [place] [address] 12:01pm White Blood June 11.14 4.8-10.8 MAIN LAB , [address] Count 2019 1000/[place]3 [place] [address] 12:25am White Blood April 08, 9.22 4.8-10.8 MAIN LA B, [address] Count 2019 1000/[place]3 [place] [address] 12:03pm Red Blood December 5.05 M/mm3 4.70-6.00 MAIN LAB, [address] [place] [address] [place] [address] 3:40am Red Blood August 5.37 M/mm3 4.70-6.00 MAIN LAB, [address] [place] [address] [place] [address] 12:01pm Red Blood June 5.37 M/mm3 4.70-6.00 MAIN LAB, [address] [place] [address] Street Count 2019 [place] [address] 12:25am Red Blood April 08, 5.22 M/mm3 4.70-6.00 MAIN LAB , [address] [place] [address] Street Count 2019 [place] [address] 12:03pm Hemoglobin December 14.3 g/dL 14.0-18.0 MAIN LAB, [address] [place] [address] [place] [address] 3:40am Hemoglobin August 15.1 g/dL 14.0-18.0 MAIN LAB, [address] [place] [address] [place] [address] 12:01pm Hemoglobin June 15.1 g/dL 14.0-18.0 MAIN LAB, [address] [place] [address] 2019 [place] [address] 12:25am Hemoglobin April 08, 14.7 g/dL 14.0-18.0 MAIN LAB , [address] [place] [address] 2019 [place] [address] 12:03pm Hematocrit December 43.3 % 42-52 MAIN LAB, [address] [place] [address] [place] [address] 3:40am Hematocrit August 47.3 % 42-52 MAIN LAB, [address] [place] [address] [place] [address] 12:01pm Hematocrit June 46.7 % 42-52 MAIN LAB, [address] [place] [address] 2019 [place] [address] 12:25am Hematocrit April 08, 45.9 % 42-52 MAIN LAB , [address] [place] [address] 2019 [place] [address] 12:03pm Mean December 85.7 fL 80.0-94.0 MAIN LAB, [address] [place] [address] [place] [address] Volume 3:40am Mean August 88.1 fL 80.0-94.0 MAIN LAB, [address] [place] [address] [place] [address] Volume 12:01pm Mean June 87.0 fL 80.0-94.0 MAIN LAB, [address] [place] [address] [place] [address] Volume 12:25am Mean April 08, 87.9 fL 80.0-94.0 MAIN LAB, [address] [place] [address] [place] [address] Volume 12:03pm Mean December 28.3 pg 27-31 MAIN LAB, [address] [place] [address] [place] [address] Hemoglobin 3:40am Mean August 28.1 pg 27-31 MAIN LAB, [address] [place] [address] [place] [address] Hemoglobin 12:01pm Mean June 28.1 pg 27-31 MAIN LAB, [address] [facility] Corpuscular [address] [place] [address] Hemoglobin 12:25am Mean April 08, 28.2 pg 27- MAIN LAB, [address] [facility] Corpuscular 2019 [facility] [place] [address] Hemoglobin 12:03pm Mean December 33.0 g/dL MAIN LAB, [address] [facility] Corpuscular 2020 [facility] [address] Hemoglobin 3:40am Concent Mean August 31.9 g/dL MAIN LAB, [address] [facility] Corpuscular 2019 [facility] [place] [address] Hemoglobin 12:01pm Concent Mean June 32.3 g/dL MAIN LAB, [address] [facility] Corpuscular 2019 [facility] [place] [address] Hemoglobin 12:25am Concent Mean April 08, 32.0 g/dL MAIN LAB, [address] [facility] Corpuscular 2019 [facility] [address] Hemoglobin 12:03pm Concent Red Cell December 13.9 % 11.5-14.5 MAIN LAB, [address] [facility] Distribution 2020 [facility] [place] [address] Width 3:40am Red Cell August 14.0 % 11.5-14.5 MAIN LAB, [address] [place] [address] Distribution 2019 [facility] [place] [address] Width 12:01pm Red Cell June 14.1 % 11.5-14.5 MAIN LAB, [address] [facility] Distribution 2019 [facility] [place] [address] Width 12:25am Red Cell April 08, 14.0 % 11.5-14.5 MAIN LAB, [address] [facility] 2019 [place] [address] Width 12:03pm Platelet December 258 140-440 MAIN LAB, [address] [facility] Count 2020 1000/[place]3 [place] [address] 3:40am Platelet August 328 140-440 MAIN LAB, [address] [facility] Count 2019 1000/[place]3 [place] [address] 12:01pm Platelet June 276 140-440 MAIN LAB, [address] [facility] Count 2019 1000/[place]3 [place] [address] 12:25am Platelet April 08, 284 140-440 MAIN LAB, [address] [place] [address] Count 2019 1000/[place]3 [place] [address] 12:03pm Mean Platelet December 10.1 fL 7.4-10.4 MAIN L AB, [address] [place] [address] [place] [address] 3:40am Mean Platelet August 10.9 fL 7.4-10.4 MAIN L AB, [address] [place] [address] [place] [address] 12:01pm Mean Platelet June 10.3 fL 7.4-10.4 MAIN L AB, [address] [place] [address] Volume 2019 [place] [address] 12:25am Mean Platelet April 08, 10.4 fL 7.4-10.4 MAIN LAB, [address] [place] [address] Volume 2019 [place] [address] 12:03pm Neutrophils December 57.1 % 40.0-72.0 MAIN LAB , [address] [place] [address] (%) (Auto) [address] [place] [address] 3:40am Neutrophils August 62.1 % 40.0-72.0 MAIN LAB , [address] [place] [address] (%) (Auto) [address] [place] [address] 12:01pm Neutrophils June 70.9 % 40.0-72.0 MAIN LAB , [address] [place] [address] (%) (Auto) [address] [place] [address] 12:25am Neutrophils April 08, 60.7 % 40.0-72.0 MAIN LA B, [address] [place] [address] (%) (Auto) [address] [place] [address] 12:03pm Lymphocytes 33.7 % 17-45 MAIN LAB , [address] [place] [address] (%) (Auto) [address] [place] [address] 3:40am Lymphocytes Parker 29.7 % 17-45 MAIN LAB , [address] [place] [address] (%) (Auto) [address] [place] [address] 12:01pm Lymphocytes June 20.0 % 17-45 MAIN LAB , [address] [place] [address] (%) (Auto) [address] [place] [address] 12:25am Lymphocytes April 08, 28.7 % 17-45 MAIN LA B, [address] [place] [address] (%) (Auto) [address] [place] [address] 12:03pm Monocytes (%) December 6.0 % 3-11 MAIN L AB, [address] [place] [address] (Auto) 2020 [place] [address] 3:40am Monocytes (%) August 5.9 % 3-11 MAIN L AB, [address] [place] [address] (Auto) 2019 [place] [address] 12:01pm Monocytes (%) June 6.3 % 3-11 MAIN L AB, [address] [place] [address] (Auto) 2019 [place] [address] 12:25am Monocytes (%) April 08, 6.4 % 3-11 MAIN LAB, [address] [place] [address] (Auto) 2019 [place] [address] 12:03pm Eosinophils 2.2 % 0-3 MAIN LAB , [address] [place] [address] (%) (Auto) [address] [place] [address] 3:40am Eosinophils August 1.3 % 0-3 MAIN LAB , [address] [place] [address] (%) (Auto) [address] [place] [address] 12:01pm Eosinophils June 1.6 % 0-3 MAIN LAB , [address] [place] [address] (%) (Auto) [address] [place] [address] 12:25am Eosinophils April 08, 2.7 % 0-3 MAIN LA B, [address] [place] [address] (%) (Auto) [address] [place] [address] 12:03pm Basophils (%) December 0.7 % 0-1 MAIN L AB, [address] [place] [address] (Auto) 2020 [place] [address] 3:40am Basophils (%) August 0.6 % 0-1 MAIN L AB, [address] [place] [address] (Auto) 2019 [place] [address] 12:01pm Basophils (%) June 0.7 % 0-1 MAIN L AB, [address] [place] [address] (Auto) 2019 [place] [address] 12:25am Basophils (%) April 08, 0.7 % 0-1 MAIN LAB, [address] [place] [address] (Auto) 2019 [place] [address] 12:03pm Immature December 0.3 % 0-1 MAIN LAB, [address] [place] [address] Granulocyte % 2020 [place] [address] (Auto) 3:40am Immature August 0.4 % 0-1 MAIN LAB, [address] [place] [address] Granulocyte % 2019 [place] [address] (Auto) 12:01pm Immature June 0.5 % 0-1 MAIN LAB, [address] [place] [address] Granulocyte % 2019 [place] [address] (Auto) 12:25am Immature April 08, 0.8 % 0-1 MAIN LAB, [address] [place] [address] Granulocyte % 2019 [place] [address] (Auto) 12:03pm Neutrophils # December 4.97 1.4-6.5 MAIN L AB, [address] [place] [address] (Auto) 2020 1000/[place]3 [place] [address] 3:40am Neutrophils # August 7.45 1.4-6.5 MAIN L AB, [address] [place] [address] (Auto) 2019 1000/[place]3 [place] [address] 12:01pm Neutrophils # June 7.89 1.4-6.5 MAIN L AB, [address] [place] [address] (Auto) 2019 1000/[place]3 [place] [address] 12:25am Neutrophils # April 08, 5.60 1.4-6.5 MAIN LAB, [address] [place] [address] (Auto) 2019 1000/[place]3 [place] [address] 12:03pm Lymphocytes # December 2.93 1.2-3.4 MAIN L AB, [address] [place] [address] (Auto) 2020 1000/[place]3 [place] [address] 3:40am Lymphocytes # August 3.56 1.2-3.4 MAIN L AB, [address] [place] [address] (Auto) 2019 1000/[place]3 [place] [address] 12:01pm Lymphocytes # June 2.23 1.2-3.4 MAIN L AB, [address] [place] [address] (Auto) 2019 1000/[place]3 [place] [address] 12:25am Lymphocytes # April 08, 2.65 1.2-3.4 MAIN LAB, [address] [place] [address] (Auto) 2019 1000/[place]3 [place] [address] 12:03pm Monocytes # 0.52 0.0-0.8 MAIN LAB , [address] [place] [address] (Auto) 2020 1000/[place]3 [place] [address] 3:40am Monocytes # Parker 0.71 0.0-0.8 MAIN LAB , [address] [place] [address] (Auto) 2019 1000/[place]3 [place] [address] 12:01pm Monocytes # June 0.70 0.0-0.8 MAIN LAB , [address] [place] [address] (Auto) 2019 1000/[place]3 [place] [address] 12:25am Monocytes # April 08, 0.59 0.0-0.8 MAIN LA B, [address] [place] [address] (Auto) 2019 1000/[place]3 [place] [address] 12:03pm Eosinophils # December 0.19 0.0-0.7 MAIN L AB, [address] [place] [address] (Auto) 2020 1000/[place]3 [place] [address] 3:40am Eosinophils # August 0.16 0.0-0.7 MAIN L AB, [address] [place] [address] (Auto) 2019 1000/[place]3 [place] [address] 12:01pm Eosinophils # June 0.18 0.0-0.7 MAIN L AB, [address] [place] [address] (Auto) 2019 1000/[place]3 [place] [address] 12:25am Eosinophils # April 08, 0.25 0.0-0.7 MAIN LAB, [address] [place] [address] (Auto) 2019 1000/[place]3 [place] [address] 12:03pm Basophils # December 0.06 0.0-0.1 MAIN LAB , [address] [place] [address] (Auto) 2020 1000/[place]3 [place] [address] 3:40am Basophils # Parker 0.07 0.0-0.1 MAIN LAB , [address] [place] [address] (Auto) 2019 1000/[place]3 [place] [address] 12:01pm Basophils # June 0.08 0.0-0.1 MAIN LAB , [address] [place] [address] (Auto) 2019 1000/mm3 [place] [address] 12:25am Basophils # April 08, 0.06 0.0-0.1 MAIN LA B, [address] [place] [address] (Auto) 2019 1000/mm3 [place] [address] 12:03pm Absolute December 0.0 0-1 MAIN LAB, [address] [place] [address] [place] [address] Granulocyte 3:40am (auto Absolute August 0.1 0-1 MAIN LAB, [address] [place] [address] [place] [address] Granulocyte 12:01pm (auto Absolute June 0.1 0-1 MAIN LAB, [address] [place] [address] Immature 2019 [place] [address] Granulocyte 12:25am (auto Absolute April 08, 0.1 0-1 MAIN LAB, [address] [place] [address] Immature 2019 [place] [address] Granulocyte 12:03pm (auto Differential December Automated MAIN LA B, [address] [place] [address] [place] [address] 3:40am Differential August Automated MAIN LA B, [address] [place] [address] [place] [address] 12:01pm Differential June Automated MAIN LA B, [address] [place] [address] Method 2019 [place] [address] 12:25am Differential April 08, Automated MAIN L AB, [address] [place] [address] Method 2019 [place] [address] 12:03pm Sodium Level December 140 mmol/L 137-145 MAIN L AB, [address] [place] [address] [place] [address] 3:40am Sodium Level August 137 mmol/L 137-145 MAIN L AB, [address] [place] [address] [place] [address] 12:01pm Sodium Level June 138 mmol/L 137-145 MAIN L AB, [address] [place] [address] 2019 [place] [address] 12:25am Potassium December 3.5 mmol/L 3.6-5.0 MAIN LAB, [address] [place] [address] [place] [address] 3:40am Potassium August 4.3 mmol/L 3.6-5.0 MAIN LAB, [address] [place] [address] [place] [address] 12:01pm Potassium June 3.6 mmol/L 3.6-5.0 MAIN LAB, [address] [place] [address] 2019 [place] [address] 12:25am Chloride December 105 mmol/L 98-107 MAIN LAB, [address] [facility] [address] [place] [address] 3:40am Chloride August 105 mmol/L 98-107 MAIN LAB, [address] [facility] [address] [place] [address] 12:01pm Chloride June 103 mmol/L 98-107 MAIN LAB, [address] [place] [address] 2019 [place] [address] 12:25am Carbon December 29 mmol/L MAIN LAB, [address] [facility] Dioxide Level [address] [place] [address] 3:40am Carbon August 26 mmol/L MAIN LAB, [address] [place] [address] [place] [address] 12:01pm Carbon June 29 mmol/L MAIN LAB, [address] [place] [address] [place] [address] 12:25am Anion Gap December 1403-25 MAIN LAB, [address] [place] [address] [place] [address] 3:40am Anion Gap August 1503-25 MAIN LAB, [address] [place] [address] [place] [address] 12:01pm Anion Gap June 1503-25 MAIN LAB, [address] [place] [address] 2019 [place] [address] 12:25am Blood Urea December 11 mg/dL 05-05 MAIN LAB, [address] [place] [address] [place] [address] 3:40am Blood Urea August 12 mg/dL 05-05 MAIN LAB, [address] [place] [address] [place] [address] 12:01pm Blood Urea June 13 mg/dL 05-05 MAIN LAB, [address] [place] [address] 2019 [place] [address] 12:25am Creatinine December 0.85 mg/dL 0.66-1.25 MAIN LAB , [address] [place] [address] [place] [address] 3:40am Creatinine August 0.95 mg/dL 0.66-1.25 MAIN LAB , [address] [place] [address] [place] [address] 12:01pm Creatinine June 0.97 mg/dL 0.66-1.25 MAIN LAB , [address] [place] [address] 2019 [place] [address] 12:25am Glomerular > 60 >60.0 MAIN LAB, [address] [place] [address] Filtration 2020 mL/[place] [address] Rate Calc 3:40am Glomerular Parker > 60 >60.0 MAIN LAB, [address] [place] [address] Filtration 2019 mL/[place] [address] Rate Calc 12:01pm Glomerular October > 60 >60.0 MAIN LAB, [address] [place] [address] Filtration 2019 mL/[place] [address] Rate Calc 12:25am Glucose Level December 121 mg/dL 70-100 MAIN L AB, [address] [place] [address] [place] [address] 3:40am Glucose Level August 101 mg/dL 70-100 MAIN L AB, [address] [place] [address] [place] [address] 12:01pm Glucose Level June 125 mg/dL 70-100 MAIN L AB, [address] [place] [address] 2019 [place] [address] 12:25am Calcium Level December 8.5 mg/dL 8.4-10.2 MAIN L AB, [address] [place] [address] [place] [address] 3:40am Calcium Level August 9.4 mg/dL 8.4-10.2 MAIN L AB, [address] [place] [address] [place] [address] 12:01pm Calcium Level June 9.1 mg/dL 8.4-10.2 MAIN L AB, [address] [place] [address] 2019 [place] [address] 12:25am Calcium August 9.6 mg/dL 8.4-10.2 MAIN LAB, [address] [place] [address] [place] [address] Albumin 12:01pm Calcium June 9.3 mg/dL 8.4-10.2 MAIN LAB, [address] [place] [address] [place] [address] Albumin 12:25am Magnesium December 2.0 mg/dL 1.6-2.3 MAIN LAB, [address] [place] [address] [place] [address] 3:40am Total Parker 0.5 mg/dL 0.2-1.3 MAIN LAB, [address] [place] [address] Bilirubin 2019 [place] [address] 12:01pm Total June 0.3 mg/dL 0.2-1.3 MAIN LAB, [address] [place] [address] Bilirubin 2019 [place] [address] 12:25am Aspartate August 34 U/L MAIN LAB, [address] [place] [address] Amino Transf 2019 [facility] [place] [address] (AST/SGOT) 12:01pm Aspartate June 34 U/L MAIN LAB, [address] [place] [address] Amino Transf 2019 [facility] [place] [address] (AST/SGOT) 12:25am Alanine August 50 U/L <50 As of 01/09/20, MAIN L AB, [address] [place] [address] Aminotransfer 2019 the Reference [facility]. [facility] [address] ase 12:01pm Range for (ALT/SGPT) ALT/SGPT for adult patients has been updated. The Reference Range for ALT/SGPT has not been established for patients <18 years of age. Alanine June 48 U/L <50 As of 01/09/20, MAIN L AB, [address] [place] [address] Aminotransfer 2019 the [place] . [place] [address] ase 12:25am Range for (ALT/SGPT) ALT/SGPT for adult patients has been updated. The Reference Range for ALT/SGPT has not been established for patients <18 years of age. Troponin I December < 0.012 0-0.034 Reference Range: MA IN LAB, [address] [place] [address] 2020 ng/mL <0.034 ng/[place] [address] 3:40am Cut-off 0.120 ng/mLThe results of this assay can be falsely decreased in patients who consume Biotin. Troponin I June < 0.012 0-0.034 Reference Range: MA IN LAB, [address] [place] [address] 2019 ng/mL <0.034 ng/[place] [address] 12:25am Cut-off 0.120 ng/mLThe results of this assay can be falsely decreased in patients who consume Biotin. Total Protein August 7.3 g/dL 6.3-8.2 MAIN L AB, [address] [place] [address] 2019 [place] [address] 12:01pm Total Protein June 7.4 g/dL 6.3-8.2 MAIN L AB, [address] [place] [address] 2019 [facility] [address] 12:25am Albumin August 4.0 g/dL 3.5-5.0 MAIN LAB, [address] [place] [address] [address] [place] [address] 12:01pm Albumin June 4.1 g/dL 3.5-5.0 MAIN LAB, [address] [place] [address] 2019 [facility] [address] 12:25am Cholesterol August 229 mg/dL 59-199 MAIN LAB , [address] [place] [address] 2019 [place] [address] 12:01pm HDL August 33 mg/dL 40-60 The National MAIN LA B, [address] [place] [address] Cholesterol 2019 Cholesterol [facility] A [facility] [address] 12:01pm Education Program (NCEP) has set the following guidelines (reference values) for cholesterol, HDL:Low HDL: <40 mg/dLNormal: 40-60 mg/dLDesirable: >60 mg/dL LDL August 145.0 0-129 MAIN LAB, [address] [place] [address] Cholesterol 2019 mg/dL [facility] [place] [address] 12:01pm VLDL August 51.0 mg/dL 0-32 MAIN LAB, [address] [place] [address] Cholesterol 2019 [facility] [address] 12:01pm Cholesterol/H August 6.93 0-3.9 MAIN L AB, [address] [place] [address] DL Ratio 2019 [place] [address] 12:01pm Triglycerides August 255 mg/dL 0-149 MAIN L AB, [address] [place] [address] 2019 [place] [address] 12:01pm Alkaline August 103 U/L 38-126 MAIN LAB, [address] [place] [address] Phosphatase 2019 [facility] [place] [address] 12:01pm Alkaline June 92 U/L 38-126 MAIN LAB, [address] [place] [address] Phosphatase 2019 [place] [address] 12:25am Thyroid August 1.89 mlU/L 0.47-4.68 The results of MAIN LAB, [address] [place] [address] Stimulating 2019 this assay [place] [address] Hormone (TSH) 12:01pm be falsely decreased in patients who consume Biotin. SARS-CoV-2 January 19 Negative Negative This test is MAIN L AB, [address] RNA (RT-PCR) 2020 [place] [address] 1:00pm under the Food and Drug Administration's [...] sheets for providers can be found at: [employer]/ 4612/downloadFac t sheets for patients can be found at: [employer]/ 1300/download SARS-CoV-2 November Negative This test is [facility], [facility] ([facility] 2020 [place] [address] 11:00am under the Food and Drug Administration's [...] sheets for providers can be found at: [employer]/ 2200/downloadFac t sheets for patients can be found at: [employer]/ 7873/download Diagnostic Imaging Reports Report Dictated Date/Time Dictated By Status Radiology Report April 08, 2020 10:52am Tori Millan MD co mpleted [facility] ULTRASOUND REPORT PATIENT [...] 2020 11:17am Tori Millan MD co mpleted [facility] RADIOLOGY REPORT PATIENT NAME: YOLANDA KO [...] 2020 11:18am Tori Millan MD co mpleted [facility] RADIOLOGY REPORT PATIENT NAME: YOLANDA KO 15 DATE OF : 1975 ATTENDING/ER PHYSICIAN: Carolina perez NP ER/ATTENDING PHYSICIAN: PRIMARY CARE PHYS: Out [facility] ADMITTING PHYSICIAN: CONSULTING PHYSICIAN: PROCEDURE DATE: 04/08/20 [...] 2020 9:27am Tori Millan MD c ompleted [facility] ULTRASOUND REPORT PATIENT NAME: YLOANDA KO 13 DATE OF : 1975 ATTENDING/ER [...] no varicoceles. CONCLUSION: Improving left epididymoorchitis. dd: 04/23/20 0927 <Electronically signed by Tori hart MD in [place]> 04/23/20 0931 Radiology Report June 04, 2020 2:34pm Jaye Scott MD completed [facility] ULTRASOUND [...] 10, 2020 11:49pm Roscoe Guerrero MD comp [facility] EKG PATIENT NAME: YOLANDA KO 15 DATE OF : 1975 ATTENDING PHYSICIAN: PRIMARY CARE PHYS: Carolina Aguirre CYCLE COUNTER DICTATING PHYSICIAN: Roscoe Guerrero MD REPORT STATUS: [...] August 23, 2020 12:30pm Mario Guzmán completed [facility] CAT SCAN REPORT PATIENT NAME: YOLANDA KO 15 DATE OF : 1975 ATTENDING/ER PHYSICIAN: Jj Lopez JR , DO ER/ATTENDING PHYSICIAN: PRIMARY CARE PHYS: Carolina Aguirre CYCLE COUNTER ADMITTING PHYSICIAN: CONSULTING PHYSICIAN: PROCEDURE DATE: 08/23/20 [...] 27, 2020 3:01pm Tori Millan MD completed [facility] ULTRASOUND [...] January 25, 2021 2:02pm Marty Sweet MD [place] [phone] OPERATIVE PROCEDURE REPORT PATIENT: Yolanda Ko DATE: 01/25/2021 MR# [id number] PROCEDURE: Colonoscopy, diagnostic VISIT ID: [id number] ENDOSCOPIST: Dr. Renzo Sweet MD BIRTHDATE: 1975 [employer] TECHNICIAN: Martín Iraheta rn GENDER: male INDICATIONS: Diagnostic colonscopy and Constipation MEDICATIONS: See anesthesia notes MEDICATION START TIME: MD OUT TIME: DESCRIPTION OF PROCEDURE: After the ris ks benefits and alternatives of the procedure were thoroughly explained, in formed consent was obtained. Digital rectal exam performed and revealed no a bnormalities of the rectum. The [id number] ([id number]) endoscope was intro duced through the anus [...] complicati ons. IMPRESSION: Normal colonoscopy RECOMMENDATIONS: Call [phone] for prob lems REPEAT EXAM: Return in 10 years Colonos copy or as needed for changes.. CC: Jj Lopez Jr eSigned: Dr. Renzo Sweet MD 1 2:04 PM Name: Yolanda Ko, [id number] Advance Directives Advance Directive Response Recorded Date/Time Does patient have an Advanced Directive? No June 25, 2019 1:44pm Do we have a copy on file here at [facility]? No O ctober 2018 1:44pm Pt has a Living Will? No June 25, 2019 1:44pm Do we have a copy on file here at [facility] [place]? No O ctober 2018 1:44pm Pt has a Power of Skin Piler? No June 1:44pm Do we have a copy on file here at [facility] [place]? No O ctober 2018 [...] COVID-19 Hemorrhage of anus and rectu m Reason for Visit Epididymo-orchitis Epididymo-orchitis Epididymo-orchitis Change in bowel function Morbid obesity due to excess calories Smoker Encounters Encounter Location(s) Arrival/Admit Discharge/Depart Provider(s ) Date Date Departed [facility] April 08, 2020 April 08, 2020 [facility] Emergency Medical 12:35am 1:22am Center-Emergency Department Departed [facility] April 08, 2020 April 08, 2020 [facility] Emergency Medical 10:03am 12:39pm Center-Emergency Department Departed [facility] April 08, 2020 April 08, [address] [facility] 10:06am 10:07am , CYCLE COUNTER [facility] Departed [facility] April 08, 2020 April 08, 2020 [facility] Emergency Medical 9:44pm 10:10pm Center-Emergency Department Departed [facility] April 09, 2020 April 09, 2020 Jerome Joshi Physician/Prov Medical 8:23am 9:40am MD ider Office [facility] Visit corner cutter Services Departed [facility] April 23, 2020 April 23, 2020 Jerome younger [facility]DI 8:43am 8:44am MD [facility] Departed [facility] June 04June 04, 2020 Jerome cordova [facility] 2019 2:17pm 2:18pm MD [facility] Departed [facility] June 10, 2020 June 11, 2020 null Emergency Medical 11:46pm 1:27am Center-Emergency Department Departed [facility] June 18, 2020 June 18, 2020 [facility] 12:[facility] 12:11pm Malick cazares [facility] Departed [facility] June 29, June 29, 2020 Jerome Joshi Physician/[facility] Medical 2019 2:41pm 3:05pm MD ross Office [facility] Visit corner cutter Services Departed [facility] August 20, August 20, 2020 Quinn Lopez JR, [facility] Medical 2019 5:17pm 5:18pm DO [facility] Departed [facility] August 23August 23, 2020 Quinn Lopez JR, [facility] 2019 12:13pm 12:14pm DO [facility] Departed [facility] August 27, August 27, 2020 Jerome mao [facility] 2019 3:26pm 3:27pm MD [facility] Departed [facility] September 17, 2020 September 17, 2020 Dedra Eastman Physician/[facility] Medical 3:47pm 4:46pm BRENDA ross Office [facility] [place] Departed [facility] September 24, September 24, 2020 Jerome Joshi Physician/[facility] Medical 2020 12:32pm 12:54pm MD ross Office [facility] Visit corner cutter Services Departed [facility] December 07, 2020 December 07, 2020 Melody Robles Clinical Medical 7:45am 7:46am 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 [facility] Departed [facility] December 23, 2020 December 23, 2020 null Emergency Medical 3:24am 5:05am Center-Emergency Department Departed [facility] January 19, 2021 January 19, [facility] 5:02am 5:03am MD Micki [facility] Departed [facility] January 25, 2021 January 25, 2021 [facility] 12:06pm 3:09pm MD Micki [facility] Center-Surgical Services Recent Diagnosis Onset Date Epididymo-orchitis Epididymo-orchitis Epididymo-orchitis Change in bowel function Morbid obesity due to excess calories Smoker Assessments Diagnosis Onset Date Resolution Status Epididymo-orchitis acute Epididymo-orchitis acute Epididymo-orchitis acute Change in bowel function acute Morbid obesity due to excess calories acute Smoker acute Family History Relationship Condition Age at [...] Equipment Information available Insurance Providers Guarantor YOLANDA KO Address [address] [place] [id number] Contact Info. 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 [employer] [id number] A Timothy Work Phone: [address] A sanjeev Figueroa , CYCLE COUNTER [facility] [id number] Jerome Willoughby Work Phone: [facility] Urology MD Adi [facility] , [facility] [id number] [address] Future Procedures Future procedure information [...] Date of Observation Smokes tobacco daily (finding) January 25, 2021 12:45pm Observation Status Observation Response Date of Response Alcohol Use Yes January 25, 2021 12:45 pm alcohol intake frequency holidays/special occasions only January 13, 2021 2:20pm Substance/Street Drug Use Yes January 25, 2021 12:45pm Substance Use Treatment No December 23, 2020 4:58am substance use type marijuana January 13, 2021 8:40am Smoking Status Current every day smoker January 25, 2021 12:45pm Assigned Sex Male Vital Signs Vital Reading [...] 11:49pm Body Temperature 98.1 [degF] 97.6-99.6 June 10, 11:49pm Heart Rate 94 /min 60-100 June [...] 2:47pm BP Systolic 118 mm[Hg] 100-140 June 29, 2:47pm BP Diastolic 88 mm[Hg] 50-85 June 29, 2:47pm Height 76 [in_i] September 17 2:49pm Weight 198.67 kg September 17 2:49pm BMI (Body Mass Index) 53.3 kg/m2 September 2:49pm Height 76 [in_i] September 24 11:36am Body Temperature 97.5 [degF] 97.6-99.6 September 24, 2 021 11:36am Heart Rate 109 /min 60-100 September 24 11:36am Respiratory rate 18 /min 12-September 24, 2 021 11:36am BP Systolic 132 mm[Hg] 100-140 September 24, 11:36am BP Diastolic 88 mm[Hg] 50-85 September 24, 11:36am Weight 201.84 kg December 23, 2020 3:34am Body Temperature 97.6 [degF] 97.6-99.6 December 23 3:34am Heart Rate 91 /min 60-100 December 23, 2020 4:36am Respiratory rate 20 /min -December 23 4:36am Oxygen saturation by Pulse 97 [...] 56.2 kg/m2 January 13, 2 021 8:40am Hospital Discharge Instructions
--- OUTSIDE RECORDS SUMMARY | 2022-03-21 09:32 | XMS_ITS | Continuity of Care Document ---
:1975 Author Organization [facility] Address [address] [place] [address] Phone Care Team Providers Name Role Phone [...] Angio Chest w/wo Contrast August 23, 2020 11:30am co mpleted US Testicles (Scrotal) June 04, 2020 1:30pm [...] 2019 7:35am Urine Specific April 09, 1.025 Beverly (Manual) 2019 7:35am POC Urine RBC April 09, Trace 2019 Intact 7:35am Urine pH (Manual) April 09, 5.5 2019 7:35am POC Urine Protein April 09, Negative Confirmation 2019 7:35am Urine April 09, 0.2 Urobilinogen 2019 (Manual) 7:35am Urine Nitrite April 09, Negative (Manual) 2019 7:35am Urine Leukocyte April 09, Negative Esterase (Manual) 2019 7:35am White Blood Count August 21.00 4.8-10.8 [place] [facility], [address] [place] [address] 2019 1000/[place]3 [place] [address] 11:01am White Blood Count June 20.14 4.8-10.8 [place] [facility], [address] [place] [address] 2019 1000/mm3 [place] [address] 11:25pm White Blood Count April 08, 9.22 4.8-10.8 M AIN LAB, [address] [place] [address] 2019 1000/mm3 [facility] 75863 11:03am Red Blood Count August 5.37 M/mm3 4.70-6.00 [facility] N [facility], [address] [place] [address] [facility] 23096 11:01am Red Blood Count June 5.37 M/mm3 4.70-6.00 [facility], [address] [place] [address] [facility] 26090 11:25pm Red Blood Count April 08, 5.22 M/mm3 4.70-6.00 [place] [facility], [address] [place] [address] [facility] 23525 11:03am Hemoglobin August 15.1 g/dL 14.0-18.0 MAIN LAB, [address] [place] [address] [facility] 07743 11:01am Hemoglobin June 15.1 g/dL 14.0-18.0 MAIN LAB, [address] [place] [address] [facility] 01934 11:25pm Hemoglobin April 08, 14.7 g/dL 14.0-18.0 MAIN LAB , [address] [place] [address] [facility] 39838 11:03am Hematocrit August 47.3 % 42-52 MAIN LAB, [address] [place] [address] [facility] 64417 11:01am Hematocrit June 46.7 % 42-52 MAIN LAB, [address] [place] [address] [facility] 34257 11:25pm Hematocrit April 08, 45.9 % 42-52 MAIN LAB , [address] [place] [address] [facility] 91222 11:03am Mean Corpuscular August 88.1 fL 80.0-94.0 [facility], [address] [place] [address] [facility] 49304 11:01am Mean Corpuscular June 87.0 fL 80.0-94.0 [facility], [address] [place] [address] [facility] 42972 11:25pm Mean Corpuscular April 08, 87.9 fL 80.0-94.0 [place] IN LAB, [address] [place] [address] 2019 [place] [address] 11:03am Mean Corpuscular August 28.1 pg 27-31 [facility], [address] [place] [address] [place] [address] 11:01am Mean Corpuscular June 28.1 pg 27-31 [facility], [address] [place] [address] [place] [address] 11:25pm Mean Corpuscular April 08, 28.2 pg 27-31 [place] LAB, [address] [place] [address] [place] [address] 11:03am Mean Corpuscular August 31.9 g/dL 33-37 [facility], [address] [place] [address] [place] [address] Concent 11:01am Mean Corpuscular June 32.3 g/dL 33-37 [facility] N [facility], [address] [place] [address] [place] [address] Concent 11:25pm Mean Corpuscular April 08, 32.0 g/dL 33-37 [place] IN LAB, [address] [place] [address] [place] [address] Concent 11:03am Red Cell August 14.0 % 11.5-14.5 MAIN LAB, [address] [place] [address] [place] [address] Width 11:01am Red Cell June 14.1 % 11.5-14.5 MAIN LAB, [address] [place] [address] [place] [address] Width 11:25pm Red Cell April 08, 14.0 % 11.5-14.5 MAIN LAB, [address] [place] [address] [place] [address] Width 11:03am Platelet Count August 328 140-440 MAIN LAB, [address] [place] [address] 2019 1000/[place] [address] 11:01am Platelet Count June 276 140-440 MAIN LAB, [address] [place] [address] 2019 1000/mm3 [place] [address] 11:25pm Platelet Count April 08, 284 140-440 MAIN LAB, [address] [place] [address] 2019 1000/mm3 [place] [address] 11:03am Mean Platelet August 10.9 fL 7.4-10.4 MAIN L AB, [address] [place] [address] [facility] 43212 11:01am Mean Platelet June 10.3 fL 7.4-10.4 MAIN L AB, [address] [place] [address] Volume 2019 [place] [address] 11:25pm Mean Platelet April 08, 10.4 fL 7.4-10.4 MAIN LAB, [address] [place] [address] 2019 [place] [address] 11:03am Neutrophils (%) August 62.1 % 40.0-72.0 MAIN LAB, [address] [place] [address] (Auto) 2019 [facility] 40788 11:01am Neutrophils (%) June 70.9 % 40.0-72.0 MAIN LAB, [address] [place] [address] (Auto) 2019 [facility] 00145 11:25pm Neutrophils (%) April 08, 60.7 % 40.0-72.0 [facility], [address] [place] [address] (Auto) 2019 [facility] 91652 11:03am Lymphocytes (%) August 29.7 % 17-45 MAIN LAB, [address] [place] [address] (Auto) 2019 [facility] 12957 11:01am Lymphocytes (%) June 20.0 % 17-45 MAIN LAB, [address] [place] [address] (Auto) 2019 [place] [address] 11:25pm Lymphocytes (%) April 08, 28.7 % 17-45 [facility], [address] [place] [address] (Auto) 2019 [place] [address] 11:03am Monocytes (%) August 5.9 % 3-11 MAIN L AB, [address] [place] [address] (Auto) 2019 [place] [address] 11:01am Monocytes (%) June 6.3 % 3-11 MAIN L AB, [address] [place] [address] (Auto) 2019 [place] [address] 11:25pm Monocytes (%) April 08, 6.4 % 3-11 MAIN LAB, [address] [place] [address] (Auto) 2019 [place] [address] 11:03am Eosinophils (%) August 1.3 % 0-3 MAIN LAB, [address] [place] [address] (Auto) 2019 [place] [address] 11:01am Eosinophils (%) June 1.6 % 0-3 MAIN LAB, [address] [place] [address] (Auto) 2019 [place] [address] 11:25pm Eosinophils (%) April 08, 2.7 % 0-3 [facility] N [facility], [address] [place] [address] (Auto) 2019 [place] [address] 11:03am Basophils (%) August 0.6 % 0-1 MAIN L AB, [address] [place] [address] (Auto) [address] [place] [address] 11:01am Basophils (%) June 0.7 % 0-1 MAIN L AB, [address] [place] [address] (Auto) 2019 [place] [address] 11:25pm Basophils (%) April 08, 0.7 % 0-1 MAIN LAB, [address] [place] [address] (Auto) 2019 [place] [address] 11:03am Immature August 0.4 % 0-1 MAIN LAB, [address] [place] [address] Granulocyte % 2019 [place] [address] (Auto) 11:01am Immature June 0.5 % 0-1 MAIN LAB, [address] [place] [address] Granulocyte % 2019 [place] [address] (Auto) 11:25pm Immature April 08, 0.8 % 0-1 MAIN LAB, [address] [place] [address] Granulocyte % 2019 [place] [address] (Auto) 11:03am Neutrophils # August 7.45 1.4-6.5 MAIN L AB, [address] [place] [address] (Auto) 2019 1000/[place]3 [place] [address] 11:01am Neutrophils # June 7.89 1.4-6.5 MAIN L AB, [address] [place] [address] (Auto) 2019 1000/mm3 [place] [address] 11:25pm Neutrophils # April 08, 5.60 1.4-6.5 MAIN LAB, [address] [place] [address] (Auto) 2019 1000/mm3 [place] [address] 11:03am Lymphocytes # August 3.56 1.2-3.4 MAIN L AB, [address] [place] [address] (Auto) 2019 1000/[place]3 [place] [address] 11:01am Lymphocytes # June 2.23 1.2-3.4 MAIN L AB, [address] [place] [address] (Auto) 2019 1000/[place]3 [place] [address] 11:25pm Lymphocytes # April 08, 2.65 1.2-3.4 MAIN LAB, [address] [place] [address] (Auto) 2019 1000/mm3 [place] [address] 11:03am Monocytes # August 0.71 0.0-0.8 MAIN LAB , [address] [place] [address] (Auto) 2019 1000/[place] [address] 11:01am Monocytes # June 0.70 0.0-0.8 MAIN LAB , [address] [place] [address] (Auto) 2019 1000/mm3 [place] [address] 11:25pm Monocytes # April 08, 0.59 0.0-0.8 MAIN LA B, [address] [place] [address] (Auto) 2019 1000/mm3 [place] [address] 11:03am Eosinophils # August 0.16 0.0-0.7 MAIN L AB, [address] [place] [address] (Auto) 2019 1000/[place] [address] 11:01am Eosinophils # June 0.18 0.0-0.7 MAIN L AB, [address] [place] [address] (Auto) 2019 1000/mm3 [place] [address] 11:25pm Eosinophils # April 08, 0.25 0.0-0.7 MAIN LAB, [address] [place] [address] (Auto) 2019 1000/mm3 [place] [address] 11:03am Basophils # August 0.07 0.0-0.1 MAIN LAB , [address] [place] [address] (Auto) 2019 1000/[place] [address] 11:01am Basophils # June 0.08 0.0-0.1 MAIN LAB , [address] [place] [address] (Auto) 2019 1000/mm3 [place] [address] 11:25pm Basophils # April 08, 0.06 0.0-0.1 MAIN LA B, [address] [place] [address] (Auto) 2019 1000/mm3 [place] [address] 11:03am Absolute Immature Parker 0.1 0-1 [place] IN LAB, [address] [place] [address] Granulocyte (auto [place] [address] 11:01am Absolute Immature October 0.1 0-1 [place] IN LAB, [address] [place] [address] Granulocyte (auto 2019 [place] [address] 11:25pm Absolute Immature April 08, 0.1 0-1 M AIN LAB, [address] [facility] Granulocyte (auto 2019 . [facility] [place] [address] 11:03am Differential August Automated MAIN LA B, [address] [facility] Method 2019 [place] [address] 11:01am Differential June Automated MAIN LA B, [address] [place] [address] [facility] 11991 11:25pm Differential April 08, Automated MAIN L AB, [address] [facility] Method 2019 [facility] 22147 11:03am Sodium Level August 137 mmol/L 137-145 MAIN L AB, [address] [place] [address] 2019 [place] [address] 11:01am Sodium Level June 138 mmol/L 137-145 MAIN L AB, [address] [place] [address] [facility] 95908 11:25pm Potassium Level August 4.3 mmol/L 3.6-5.0 [facility] N [facility], [address] [place] [address] [facility] 89653 11:01am Potassium Level June 3.6 mmol/L 3.6-5.0 [facility] N [facility], [address] [place] [address] [facility] 34429 11:25pm Chloride Level August 105 mmol/L 98-107 MAIN LAB, [address] [place] [address] [facility] 75532 11:01am Chloride Level June 103 mmol/L 98-107 MAIN LAB, [address] [place] [address] [facility] 86086 11:25pm Carbon Dioxide August 26 mmol/L -30 MAIN LAB, [address] [place] [address] [facility] 42179 11:01am Carbon Dioxide June 29 mmol/L -30 MAIN LAB, [address] [place] [address] [facility] 88500 11:25pm Anion Gap August 1503-25 MAIN LAB, [address] [place] [address] [facility] 60074 11:01am Anion Gap June 1503-25 MAIN LAB, [address] [place] [address] [facility] 54024 11:25pm Blood Urea August 12 mg/dL 8- MAIN LAB, [address] [place] [address] [facility] 15465 11:01am Blood Urea June 13 mg/dL 8-26 MAIN LAB, [address] [place] [address] [facility] 02515 11:25pm Creatinine August 0.95 mg/dL 0.66-1.25 MAIN LAB , [address] [place] [address] [facility] 83889 11:01am Creatinine June 0.97 mg/dL 0.66-1.25 MAIN LAB , [address] [place] [address] [facility] 42504 11:25pm Glomerular Parker > 60 >60.0 MAIN LAB, [address] [place] [address] Filtration Rate 2019 mL/min [facility] 77238 Calc 11:01am Glomerular October > 60 >60.0 MAIN LAB, [address] [place] [address] Filtration Rate 2019 mL/min [facility] 25103 Calc 11:25pm Glucose Level August 101 mg/dL 70-100 MAIN L AB, [address] [place] [address] [facility] 49074 11:01am Glucose Level June 125 mg/dL 70-100 MAIN L AB, [address] [place] [address] [facility] 02791 11:25pm Calcium Level August 9.4 mg/dL 8.4-10.2 MAIN L AB, [address] [place] [address] [facility] 29423 11:01am Calcium Level June 9.1 mg/dL 8.4-10.2 MAIN L AB, [address] [place] [address] [facility] 33826 11:25pm Calcium Adjusted August 9.6 mg/dL 8.4-10.2 [facility] N [facility], [address] [place] [address] for Albumin 2019 [facility] 99888 11:01am Calcium Adjusted June 9.3 mg/dL 8.4-10.2 [facility] N LAB, [address] [place] [address] for Albumin 2019 [facility] 37421 11:25pm Total Bilirubin August 0.5 mg/dL 0.2-1.3 MAIN LAB, [address] [place] [address] [facility] 25814 11:01am Total Bilirubin June 0.3 mg/dL 0.2-1.3 MAIN LAB, [address] [place] [address] [facility] 63498 11:25pm Aspartate Amino August 34 U/L MAIN LAB, [address] [place] [address] Transf (AST/SGOT) 2019 [facility] 32181 11:01am Aspartate Amino June 34 U/L MAIN LAB, [address] [place] [address] Transf (AST/SGOT) 2019 [facility] 81598 11:25pm Alanine August 50 U/L <50 As of MAIN LAB, [address] [place] [address] Aminotransferase 201901/09/20, the [facility] 45689 (ALT/SGPT) 11:01am Reference Range for ALT/SGPT for adult patients has been updated. The Reference Range for ALT/SGPT has not been established for patients <18 years of age. Alanine June 48 U/L <50 As of MAIN LAB, [address] [place] [address] Aminotransferase 201901/09/20, the [facility] 02432 (ALT/SGPT) 11:25pm Reference Range for ALT/SGPT for adult patients has been updated. The Reference Range for ALT/SGPT has not been established for patients <18 years of age. Troponin I June < 0.012 0-0.034 Reference MAIN LAB, [address] [place] [address] 2019 ng/mL Range: [facility] 99157 11:25pm <0.034 ng/mL AMI Cut-off 0.120 ng/mLThe results of this assay can be falsely decreased in patients who consume Biotin. Total Protein August 7.3 g/dL 6.3-8.2 MAIN L AB, [address] [place] [address] [facility] 88710 11:01am Total Protein June 7.4 g/dL 6.3-8.2 MAIN L AB, [address] [place] [address] [facility] 57456 11:25pm Albumin August 4.0 g/dL 3.5-5.0 MAIN LAB, [address] [place] [address] [facility] 72937 11:01am Albumin June 4.1 g/dL 3.5-5.0 MAIN LAB, [address] [place] [address] [facility] 46523 11:25pm Cholesterol Level August 229 mg/dL 59-199 [place] IN LAB, [address] [place] [address] 2019 [place] [address] 11:01am HDL Cholesterol August 33 mg/dL 40-60 [facility] [address] [place] [address] [place] [address] 11:01am Education Program (NCEP) has set the following guidelines (reference values) for cholesterol, HDL:Low HDL: <40 mg/dLNormal: 40-60 mg/dLDesirab le: >60 mg/dL LDL Cholesterol August 145.0 0-129 MAIN LAB, [address] [place] [address] 2019 mg/[place] [address] 11:01am VLDL Cholesterol August 51.0 mg/dL 0-32 [place] IN LAB, [address] [place] [address] 2019 [place] [address] 11:01am Cholesterol/HDL August 6.93 0-3.9 MAIN LAB, [address] [place] [address] Ratio 2019 [place] [address] 11:01am Triglycerides August 255 mg/dL 0-149 MAIN L AB, [address] [place] [address] Level 2019 [place] [address] 11:01am Alkaline August 103 U/L 38-126 MAIN LAB, [address] [place] [address] Phosphatase 2019 [place] [address] 11:01am Alkaline June 92 U/L 38-126 MAIN LAB, [address] [place] [address] Phosphatase 2019 [facility] [place] [address] 11:25pm Thyroid August 1.89 mlU/L 0.47-4.68 The results MAIN LA B, [address] [place] [address] Stim[address] [place] [address] Hormone (TSH) 11:01am assay can be falsely [...] NP ER/ATTENDING PHYSICIAN: PRIMARY CARE PHYS: Out [facility] ADMITTING PHYSICIAN: CONSULTING PHYSICIAN: PROCEDURE DATE: [...] ER/ATTENDING PHYSICIAN: PRIMARY CARE PHYS: Carolina Aguirre PER DIEM ADMITTING PHYSICIAN: CONSULTING PHYSICIAN: PROCEDURE DATE: 04/23/20 [...] [facility] EKG PATIENT NAME: YOLANDA FANG 15 DATE OF : 1975 ATTENDING PHYSICIAN: PRIMARY CARE PHYS: Carolina Aguirre PER DIEM DICTATING PHYSICIAN: Roscoe Guerrero MD REPORT STATUS: [...] ER/ATTENDING PHYSICIAN: PRIMARY CARE PHYS: Carolina Aguirre PER DIEM ADMITTING PHYSICIAN: CONSULTING PHYSICIAN: PROCEDURE DATE: 08/23/20 [...] hart MD, PhD in OV> 08/23/20 1305 Advance Directives Advance Directive Response Recorded Date/Time Does patient have an Advanced Directive? No June 25, 2019 12:44pm Do we have a copy on file here at [facility]? No O ctober 2018 12:44pm Pt has a Living Will? No June 25, 2019 12:44pm Do we have a copy on file here at [facility]? No O ctober 2018 12:44pm Pt has a Power of Sand Temperer? No June 12:44pm Do we have a copy on file here at [facility]? No O ctober 2018 12:44pm Chief Complaint and Reason for Visit Chief Complaint TESTICLE PAIN FOLLOW UP US RT HIP PAIN; LBP TESTICULAR COMPLAINT New Patient Orchitis and epididymitis Orchitis and epididymitis Chest Pain Other forms of dyspnea follow up Shortness of Breath r/o pe Reason for Visit Epididymo-orchitis Epididymo-orchitis Encounters Encounter Location(s) Arrival/Admit Discharge/Depart Provider(s ) Date Date Departed [facility] April 07, 2020 April 08, 2020 null Emergency Medical 11:35pm 12:22am Center-Emergency Department Departed [facility] April 08, 2020 April 08, 2020 [facility] Emergency Medical 9:03am 11:39am Center-Emergency Department Departed [facility] April 08, 2020 April 08, 2020 Manuel Figueroa [facility] 9:06am 9:07am , SIRDEVI [facility] Departed [facility] April 08, 2020 April 08, 2020 [facility] Emergency Medical 8:44pm 9:10pm Center-Emergency Department Departed [facility] April 09, 2020 April 09, 2020 Jerome Joshi Physician/Prov Medical 7:23am 8:40am MD ider Office [facility] Visit rn peritoneal dialysis Services Departed [facility] April 23, 2020 April 23, 2020 Jerome younger devonte [facility] 7:43am 7:44am MD [facility] Departed [facility] June 04June 04, 2020 Jerome Joshi [facility] 2019 1:17pm 1:18MD carlo [facility] Departed [facility] June 10, 2020 June 11, 2020 null Emergency Medical 10:46pm 12:27am Center-Emergency Department Departed [facility] June 18, 2020 June 18, 2020 CARLOTTA Morales [facility] 11:10am 11:11am Malick cazares [facility] Departed [facility] June 29, June 29, 2020 Jerome Joshi Physician/[facility] Medical 2019 1:41pm 2:05pm MD idesara Office [facility] Visit rn peritoneal dialysis Services Departed [facility] August 20, August 20, 2020 Quinn Lopez JR, [facility] Medical 2019 4:17pm 4:18pm DO [facility] Departed [facility] August 23, August 23, 2020 Quinn Lopez JR, Clinical [facility] 2019 11:13am 11:14am DO [facility] Recent Diagnosis Onset Date Epididymo-orchitis Epididymo-orchitis Assessments [...] available Insurance Providers Guarantor YOLANDA FANG Address [address] [place] [address] Contact Info. Home Phone: Payer Policy Id Coverage Id Subscriber's Subscriber Id Effective E xpiration Name Date Date [place]ICA[place] [id number] YOLANDA FANG [id number] [place] SELF PAY Self N/A Plan of Treatment [...] Provider Contact Provider Address Referral Date Information Manuel Aguirre Work Phone: [phone] Manuel Figueroa NP [facility] [id number] Manuel Aguirre Work Phone: [phone] Manuel Figueroa NP [facility] [address] Jerome Willoughby Work Phone: [facility] Urology MD Adi [facility] [place] [address] Town Out Future Procedures Future procedure information [...] Body Temperature 97.4 [degF] 97.6-99.6 June 29, 020 2:47pm Heart Rate 114 /min 60-100 June 29 2:47pm Respiratory rate 18 /min -June 29, 020 2:47pm BP Systolic 118 mm[Hg] 100-140 June 29 2:47pm BP Diastolic 88 mm[Hg] 50-85 June 29 2:47pm Hospital Discharge Instructions
--- OUTSIDE RECORDS SUMMARY | 2022-03-21 09:32 | XMS_ITS | Continuity of Care Document ---
:1975 Author Organization [facility] Address [address] [place] [address] Phone Care Team Providers Name Role Phone Jj Lopez JR Primary Care Provider Melody Robles Attending Provider MD Renzo Sweet Attending Provider MD Kwaku Joshi Attending Provider Jj Lopez JR Attending Provider Chief Complaint and Reason for Visit Chief Complaint Nutrition Concern Follow Up Contact with and (suspected) exposure to COVID-19 PALPITATIONS Contact with and (suspected) exposure to COVID-19 Hemorrhage of anus and rectu m epididymitis Follow up EYE COMPLAINT/SOB S/P EAR INFECTION Shortness of Breath Reason for Visit Epididymo-orchitis Change in bowel function Morbid obesity due to excess calories Smoker Epididymo-orchitis Allergies, Adverse Reactions, Alerts Allergen Type Severity Reaction Last Updated Verified Status cephalexin Allergy gi upset February 10, 2021 1:48pm Yes Active Social History Smoking Status Status Start Date End Date Date of Observat ion Smokes tobacco daily (finding) D ec2020 11:20pm Observation Status Observation Response Date of Response Alcohol Use Yes August 13, 2021 1 1:20pm alcohol intake frequency holidays/special occasions August 13, 2021 11:20pm only Substance/Street Drug Use Yes August 13, 2021 11:20pm Substance Use Treatment No August 13 11:20pm substance use type marijuana August 13, 2021 1 1:20pm Smoking Status Current every day smoker August 13 11:20pm Additional Data Assigned Sex Male Family History Relationship Condition Age at Onset Recorded Date/Ti me Not Specified Polyp of colon Unknown Problems Active Problems Medical Problem Onset Date Status Epididymo-orchitis Active Change in bowel function Active Morbid obesity due to excess calories Ac tive Smoker Active Inactive/Resolved Problems Medical Problem Onset Date Status Testicular abscess Resolved Heart palpitations Resolved Palpitations Resolved Conjunctivitis Resolved Otitis media Resolved Vaso-vagal reaction Resolved Left epididymitis Resolved Hypertension Resolved Medications Medication Status Dose Units Route Directions Qty Days Start End Ins tructions Date Date Levofloxacin Disconti 500 MG PO DAILY 10 10 Decembe Decemb nued r , er 2019, 8:34am 2019 12:01a m Gabapentin Active 300 MG PO THREE TIMES Tonya A DAY 2019 11:45pm Ibuprofen Active 600 MG PO THREE TIMES Tonya A DAY 2019 11:45pm Levofloxacin Disconti 750 MG PO DAILY 10 March Octobe nued , r 2019, 12:03am 2019 1:44pm Metoprolol Active 50 MG PO TWICE A DAY 60 February Tar2020 12:21pm Erythromycin Active 1 APPLIC LEFTEYE DAILY 3.5 February 22, 2021 12:22pm Cyclobenzapr Active MG TABLET Decembe ine r 2020 11:11pm Gabapentin Active MG TABLET Decembe r 2020 11:11pm Meloxicam Active MG TABLET Decembe r 2020 11:11pm Amoxicillin Disconti 875 MG PO TWICE A DAY 14 7 Decembe Dec emb nued r , er 2021 08, 1:10am 2020 12:01a m Immunizations Immunization Event Not Given Dose Abrasive Grinder Lot Number Vac cine Date Reason Number Informatio n Statement (VIS) Detail Covid-January 07mcg/0.3ml , Pfizer 2020 Covid-January 19 30mcg/0.3ml 2020 Pfizer Procedures Procedure Date Performed Status CT Chest w/o Contrast September 08, 2021 5:00pm active DIAGNOSTIC COLONOSCOPY January 25, 2021 active INTERFACE ELECTROCARDIOGRAM December 23, 2020 2:38am complete d US Testicles (Scrotal) February 01, 2021 2:30pm completed Relevant Diagnostic Tests and/or Laboratory Data Laboratory Results Test Date/Time Result Interpretation Reference Result Comment Performing Range Site White Blood December 8.70 4.8-10.8 MAIN LAB Count 2020 1000/mm3 [address] 2:40am [place] [address] Red Blood December 5.05 M/mm3 4.70-6.00 MAIN LAB Count [address] 2:40am [place] [address] Hemoglobin December 14.3 g/dL 14.0-18.0 MAIN LAB [address] 2:40am [place] [address] Hematocrit December 43.3 % 42-52 MAIN LAB [address] 2:40am [facility] [address] Mean December 85.7 fL 80.0-94.0 MAIN LAB Corpuscular 2020 [address] [facility] Volume 2:40am [place] [address] Mean December 28.3 pg 27-31 MAIN LAB Corpuscular 2020 [address] [facility] Hemoglobin 2:40am . [facility] [place] [address] Mean December 33.0 g/dL 33-37 MAIN LAB Corpuscular 2020 [address] [facility] Hemoglobin 2:40am . [facility] [address] Concent Red Cell December 13.9 % 11.5-14.5 MAIN LAB Distribution [address] [place] [address] Width 2:40am [place] [address] Platelet 258 140-440 MAIN LAB Count 2020 1000/mm3 [address] [place] [address] 2:40am [place] [address] Mean Platelet December 10.1 fL 7.4-10.4 MAIN L AB Volume [address] [place] [address] 2:40am [place] [address] Neutrophils 57.1 % 40.0-72.0 MAIN LAB (%) (Auto) [address] [place] [address] 2:40am [facility] [address] Lymphocytes 33.7 % 17-45 MAIN LAB (%) (Auto) [address] [place] [address] 2:40am [place] [address] Monocytes (%) December 6.0 % 3-11 MAIN L AB (Auto) [address] [place] [address] 2:40am [place] [address] Eosinophils 2.2 % 0-3 MAIN LAB (%) (Auto) [address] [place] [address] 2:40am [place] [address] Basophils (%) 0.7 % 0-1 MAIN L AB (Auto) [address] [place] [address] 2:40am [place] [address] Immature 0.3 % 0-1 MAIN LAB Granulocyte % [address] [place] [address] (Auto) 2:40am [place] [address] Neutrophils # 4.97 1.4-6.5 MAIN L AB (Auto) 2020 1000/mm3 [address] [place] [address] 2:40am [place] [address] Lymphocytes # 2.93 1.2-3.4 MAIN L AB (Auto) 2020 1000/mm3 [address] [place] [address] 2:40am [place] [address] Monocytes # 0.52 0.0-0.8 MAIN LAB (Auto) 2020 1000/mm3 [address] [place] [address] 2:40am [place] [address] Eosinophils # 0.19 0.0-0.7 MAIN L AB (Auto) 2020 1000/mm3 [address] [place] [address] 2:40am [place] [address] Basophils # 0.06 0.0-0.1 MAIN LAB (Auto) 2020 1000/mm3 [address] [facility] 2:40am [place] [address] Absolute 0.0 0-1 MAIN LAB Immature 2020 [address] [facility] Granulocyte 2:40am [facility] [address] (auto Differential December Automated MAIN LA B Method 2020 [address] [facility] 2:40am [place] [address] Sodium Level December 140 mmol/L 137-145 MAIN L AB 2020 [address] [facility] 2:40am [facility] [address] Potassium December 3.5 mmol/L 3.6-5.0 MAIN LAB Level 2020 [address] [facility] [address] Chloride December 105 mmol/L 98-107 MAIN LAB Level 2020 [address] [facility] 2:40am [facility] [address] Carbon December 29 mmol/L 22-30 MAIN LAB Dioxide Level 2020 133 [facility] 2:40am [place] [address] Anion Gap December 6 7-16 MAIN LAB 2020 [address] [facility] 2:40am [place] [address] Blood Urea December 11 mg/dL 8-26 MAIN LAB Nitrogen 2020 [address] [facility] 2:40am [facility] [address] Creatinine December 0.85 mg/dL 0.66-1.25 MAIN LAB 2020 [address] [facility] 2:40am [place] [address] Glomerular December > 60 >60.0 MAIN LAB Filtration 2020 mL/min [address] [place] [address] Rate Calc 2:40am [place] [address] Glucose Level December 121 mg/dL 70-100 MAIN L AB 2020 [address] [facility] 2:40am [place] [address] Calcium Level December 8.5 mg/dL 8.4-10.2 MAIN L AB 2020 [address] [facility] 2:40am [place] [address] Magnesium December 2.0 mg/dL 1.6-2.3 MAIN LAB Level 2020 [address] [facility] 2:40am [place] [address] Troponin I December < 0.012 0-0.034 Reference Range: MA IN LAB 2020 ng/mL <0.034 ng/mL AMI 13 3 [facility] 2:40am Cut-off [address] [place] [address] ng/mLThe results of this assay can be falsely decreased in patients who consume Biotin. SARS-CoV-2 November Negative Negative This test is MAIN L AB RNA (RT-PCR) 2020 only for use 133 [facility] 10:00am [place] [address] and Drug Administration's (FDA) Emergency Use Authorization [...] sheets for providers can be found at: [email or web address]/Ingeniatrics/ 1301/downloadFac t sheets for patients can be found at: [email or web address]/Ingeniatrics/ 8880/download SARS-CoV-2 January 19 Negative This test is MAIN L AB RNA (RT-PCR) 2020 only for use [address] [place] [address] 12:00pm [place] [address] and Drug Administration's (FDA) Emergency Use Authorization [...] sheets for providers can be found at: [email or web address]/Ingeniatrics/ 0019/downloadFac t sheets for patients can be found at: [email or web address]/Ingeniatrics/ 0467/download Diagnostic Imaging Reports Report Dictated Date/Time Dictated By Status Electrocardiogram December 23, 2020 3:28am Mario Belcher completed [facility] EKG PATIENT NAME: YOLANDA KO 13 [...] 25, 2021 2:02pm Marty Sweet [facility] [address] [phone] OPERATIVE PROCEDURE REPORT PATIENT: Yolanda Ko DATE: 01/25/2021 MR# [id number] PROCEDURE: Colonoscopy, diagnostic VISIT ID: [id number] ENDOSCOPIST: Dr. Renzo Sweet MD BIRTHDATE: 1975 HEREDITARY CANCER PROGRAM COORDINATOR: Martín Iraheta rn GENDER: male INDICATIONS: Diagnostic colonscopy and Constipation MEDICATIONS: See anesthesia notes MEDICATION START TIME: MD OUT TIME: DESCRIPTION OF PROCEDURE: After the ris ks benefits and alternatives of the procedure were thoroughly explained, in formed consent was obtained. Digital rectal exam performed and revealed no a bnormalities of the rectum. The [id number] ([id number]) endoscope was intro duced through the anus [...] complicati ons. IMPRESSION: Normal colonoscopy RECOMMENDATIONS: Call [phone] for prob lems REPEAT EXAM: Return in 10 years Colonos copy or as needed for changes.. CC: Jj Lopez Jr eSigned: Dr. Renzo Sweet MD 1 2:04 PM Name: Yolanda Ko, [id number] Report Dictated Date/Time Dictated By Status Radiology Report February 01, 2021 4:27pm PhD Kenzie Padgett MD completed [facility] ULTRASOUND REPORT PATIENT NAME: YOLANDA KO [...] evidence of epididymit is or orchitis. dd: 02/01/217 <Electronically signed by Kenzie hart MD, PhD in OV> 02/01/21 1639 Vital Signs Vital Reading Result Reference Range Collection Date/ Time Height 76 [in_i] September 17 2:49pm Weight [...] Diastolic 88 mm[Hg] 50-85 September 24 11:36am Inhaled oxygen flow rate 97 L/min September 24, 2020 11:36am Weight 201.84 kg December 23, 2020 2:34am Body Temperature 97.6 [degF] 97.6-99.6 December 23 2:34am Heart Rate 91 /min 60-100 December 23, 2020 3:36am Respiratory rate 20 /min 12-24 December 23 3:36am Oxygen saturation by Pulse 97 [...] Oxygen saturation by Pulse 98 % 95-100 Dece2020 1:30am oximetry BP Systolic 160 mm[Hg] 100-140 August 14 1:30am BP Diastolic 100 mm[Hg] 50-85 August 14 1:30am Advance Directives Advance Directive Response Recorded Date/Time Does patient have an Advanced Directive? No June 25, 2019 12:44pm Do we have a copy on file here at [facility]? No O ctober 2018 12:44pm Pt has a Living Will? No June 25, 2019 12:44pm Do we have a copy on file here at [facility]? No O ctober 2018 12:44pm Pt has a Power of [employer]? No June 12:44pm Do we have a copy on file here at [facility]? No O ctober 2018 12:44pm Insurance Providers Guarantor YOLANDA KO Address [address] [place], [place] [id number] Contact Info. Home Phone: Payer Policy Id Coverage Id Subscriber's Subscriber Id Effective E xpiration Name Date Date MEDICAID OF [id number] YOLANDA KO [id number] [place] SELF PAY Self N/A Encounters Encounter Location(s) Arrival/Admit Date Discharge/Depart Date Provider(s) Departed [facility] September 17, 2020 September 17, 2020 TIFFANIE daniel Physician/Prov Medical 2:47pm 3:46pm Raiza GUTIERREZ [facility] Visit Medicine Departed [facility] September 24, 2020 September 24, 2020 Jerome Willoughby Physician/Prov Medical 11:32am 11:54am MD Adi [facility] Visit project intern Services Departed [facility] December 07, 2020 December 07, 2020 SENIOR COMPENSATION ANALYST Sandrine Yu Clinical Medical 6:45am 6:46am [facility] Departed [facility] December 23, 2020 December 23, 2020 [facility] Emergency Medical 2:24am 4:05am Center-Emergency Department Departed [facility] January 19, 2021 January 19, 2021 4:03am Kd pineda Clinical Medical 4:02am MD Micki [facility] Departed [facility] January 25, 2021 January 25, 2021 2:09pm Kd pineda Surgical Day Medical 11:06am MD Micki [facility] Departed [facility] February 01, 2021 February 01, 2021 2:30pm Jerome cordova [facility] 2:29pm MD Adi [facility] Departed [facility] February 10, 2021 February 10, 2021 2:07pm Jerome cordova Physician/[facility] Medical 1:44pm MD Adi [facility] Visit project intern Services Departed [facility] February 22, 2021 February 22, 2021 null Emergency Medical 11:47am 12:38pm Center-Emergency Department Departed [facility] August 13, 2021 August 14, 2021 monica l Emergency Medical 11:02pm 1:34am Center-Emergency Department Departed [facility] September 08, September 08, 2021 Quinn nascimento [facility]- 2020 5:01pm 5:02pm DO RUDDY [facility] Recent Diagnosis Onset Date Epididymo-orchitis Change in bowel function Morbid obesity due to excess calories Smoker Epididymo-orchitis Functional Status Observation Response Date Recorded Living Situation With Family August 14, 2021 1 :34am Mental Status Observation Response Date Recorded Comprehension Ability Understands Concepts February 22, 2021 1 2:05pm Mood/Behavior Appropriate February 22, 2021 12:0 5pm Assessments Diagnosis Onset Date Resolution Status Epididymo-orchitis acute Change in bowel function acute [...] No suggest follow-up with ultrasound 4 months. Future Tests Future scheduled test information is unavailable Pending Tests Pending diagnostic test information is unavailable Future Visits Future appointment information is unavailable Referrals to Other Providers Reason for Referral Start Provider Provider Contact Provider Address Referral Date Information Jj Lopez Work Phone: Alicia FUENTES JR, DO [address] [place] [phone] Jj Lopez Work Phone: Alicia FUENTES JR, DO [address] [place] [phone] Jj Lopez Work Phone: Alicia FUENTES JR, DO [address] [facility] [phone] Future Procedures Future procedure information is unavailable Future Medications Future medication information is unavailable Patient Instructions Palpitations ([facility]) COVID 19 General Instructions- decrease the spread of coronavirus ([facility]) COVID 19 General Instructions- decrease the spread of coronavirus ([facility]) High Blood Pressure ([facility]) Conjunctivitis ([facility]) ED COVID 19 General Instructions- decrease the spread of coronavirus ([facility]) Ear Infection ED Goals Acute Goals Patient [...]
--- OUTSIDE RECORDS SUMMARY | 2022-03-21 09:32 | XMS_ITS | Continuity of Care Document ---
:[address] [facility] Address [address] [place] [address] Phone Care Team Providers Name Role Phone Out of Town, Provider Primary Care Provider Unavailable Carolina Aguirre Attending Provider Carolina Aguirre Primary Care Provider Kwaku Joshi Attending Provider Carmen Bañuelos Attending Provider Jj Lopez JR Attending Provider Unavailable Jj Lopez JR Primary Care Provider Unavailable Allergies, Adverse Reactions, Alerts Allergen Type Severity Reaction Last Updated Verified Status cephalexin Allergy unknown September 24, 2020 11:34am Ye s Active Medications Medication Status Dose Units Route Directions Qty Days Start End Ins tructions Date Date Levofloxacin Discontin 500 MG PO DAILY 10 Decee [facility] ued r , er 2019, 8:34am 2019 12:01a m Gabapentin Active 300 MG PO THREE TIMES Tonya A DAY 2019 11:45pm Ibuprofen Active 600 MG PO THREE TIMES Tonya A DAY 2019 11:45pm Levofloxacin Discontin 750 MG PO DAILY 10 March ued , r 2019, 12:03am 2019 1:44pm Problems Active Problems Medical Problem Onset Date [...] 2-3 vw April 08, 2020 9:39am completed US Testicles (Scrotal) August 27, 2020 2:30pm completed INTERFACE ELECTROCARDIOGRAM June 10, 2020 10:58pm [...] 2019 7:35am Urine Specific April 09, 1.025 [place] (Manual) 2019 7:35am POC Urine RBC April 09, Trace 2019 Intact 7:35am Urine pH (Manual) April 09, 5.5 2019 7:35am POC Urine Protein April 09, Negative Confirmation 2019 7:35am Urine April 09, 0.2 Urobilinogen 2019 (Manual) 7:35am Urine Nitrite April 09, Negative (Manual) 2019 7:35am Urine Leukocyte April 09, Negative Esterase (Manual) 2019 7:35am White Blood Count August 12.00 4.8-10.8 [place] IN LAB, [address] [place] [address] 2019 1000/mm3 [facility] 149[address] 11:01am White Blood Count June 20.14 4.8-10.8 [place] IN LAB, [address] [place] [address] 2019 1000/mm3 [facility] 269[address] 11:25pm White Blood Count April 08, 9.22 4.8-10.8 M AIN LAB, [address] [place] [address] 2019 1000/mm3 [facility] 63076 11:03am Red Blood Count August 5.37 M/mm3 4.70-6.00 LED[facility] N LAB, [address] [place] [address] 2019 [facility] [address]24[address] 11:01am Red Blood Count June 5.37 M/mm3 4.70-6.00 LED[facility] N LAB, [address] [place] [address] 2019 [facility] [address]7560 11:25pm Red Blood Count April 08, 5.22 M/mm3 4.70-6.00 MA IN LAB, [address] [place] [address] 2019 [facility] 57950 11:03am Hemoglobin August 15.1 g/dL 14.0-18.0 MAIN LAB, [address] [place] [address] 2019 [facility] 49894 11:01am Hemoglobin June 15.1 g/dL 14.0-18.0 MAIN LAB, [address] [place] [address] 2019 [facility] 56570 11:25pm Hemoglobin April 08, 14.7 g/dL 14.0-18.0 MAIN LAB , [address] [place] [address] [address] [place] [address] 11:03am Hematocrit August 47.3 % 42-52 MAIN LAB, [address] [place] [address] 2019 [facility] 61610 11:01am Hematocrit June 46.7 % 42-52 MAIN LAB, [address] [place] [address] 2019 [facility] 63667 11:25pm Hematocrit April 08, 45.9 % 42-52 MAIN LAB , [address] [place] [address] [address] [place] [address] 11:03am Mean Corpuscular August 88.1 fL 80.0-94.0 LEDA N LAB, [address] [facility] Volume [address] [place] [address] 11:01am Mean Corpuscular June 87.0 fL 80.0-94.0 LEDA N LAB, [address] [place] [address] Volume 2019 [place] [address] 11:25pm Mean Corpuscular April 08, 87.9 fL 80.0-94.0 MA IN LAB, [address] [facility] Volume [address] [place] [address] 11:03am Mean Corpuscular August 28.1 pg 27-31 LEDA N LAB, [address] [place] [address] [place] [address] 11:01am Mean Corpuscular June 28.1 pg 27-31 LED[facility] N LAB, [address] [place] [address] [place] [address] 11:25pm Mean Corpuscular April 08, 28.2 pg 27-31 MA IN LAB, [address] [facility] Hemoglobin [address] [place] [address] 11:03am Mean Corpuscular August 31.9 g/dL 33-37 LEDA N LAB, [address] [place] [address] [place] [address] Concent 11:01am Mean Corpuscular June 32.3 g/dL 33-37 LEDA N LAB, [address] [place] [address] [place] [address] Concent 11:25pm Mean Corpuscular April 08, 32.0 g/dL 33-37 MA IN LAB, [address] [facility] Hemoglobin [address] [place] [address] Concent 11:03am Red Cell August 14.0 % 11.5-14.5 MAIN LAB, [address] [facility] Distribution [address] [place] [address] Width 11:01am Red Cell June 14.1 % 11.5-14.5 MAIN LAB, [address] [facility] Distribution [address] [place] [address] Width 11:25pm Red Cell April 08, 14.0 % 11.5-14.5 MAIN LAB, [address] [facility] Distribution [address] [place] [address] Width 11:03am Platelet Count August 328 140-440 MAIN LAB, [address] [place] [address] 2019 1000/mm3 [facility] [place] [address] 11:01am Platelet Count June 276 140-440 MAIN LAB, [address] [place] [address] 2019 1000/[place]3 [place] [address] 11:25pm Platelet Count April 08, 284 140-440 MAIN LAB, [address] [place] [address] 2019 1000/[place]3 [place] [address] 11:03am Mean Platelet August 10.9 fL 7.4-10.4 MAIN L AB, [address] [place] [address] Volume 2019 [facility] [place] [address] 11:01am Mean Platelet June 10.3 fL 7.4-10.4 MAIN L AB, [address] [place] [address] [address] [place] [address] 11:25pm Mean Platelet April 08, 10.4 fL 7.4-10.4 MAIN LAB, [address] [place] [address] [address] [place] [address] 11:03am Neutrophils (%) August 62.1 % 40.0-72.0 MAIN LAB, [address] [place] [address] (Auto) 2019 [facility] [place] [address] 11:01am Neutrophils (%) June 70.9 % 40.0-72.0 MAIN LAB, [address] [place] [address] (Auto) 2019 [place] [address] 11:25pm Neutrophils (%) April 08, 60.7 % 40.0-72.0 LEDA N LAB, [address] [place] [address] (Auto) [address] [place] [address] 11:03am Lymphocytes (%) August 29.7 % 17-45 MAIN LAB, [address] [place] [address] (Auto) 2019 [facility] [place] [address] 11:01am Lymphocytes (%) June 20.0 % 17-45 MAIN LAB, [address] [place] [address] (Auto) [address] [place] [address] 11:25pm Lymphocytes (%) April 08, 28.7 % 17-45 LEDA N LAB, [address] [place] [address] (Auto) 2019 [place] [address] 11:03am Monocytes (%) August 5.9 % 3-11 MAIN L AB, [address] [place] [address] (Auto) 2019 . [place] [address] 11:01am Monocytes (%) June 6.3 % 3-11 MAIN L AB, [address] [place] [address] (Auto) 2019 [place] [address] 11:25pm Monocytes (%) April 08, 6.4 % 3-11 MAIN LAB, [address] [place] [address] (Auto) [address] [place] [address] 11:03am Eosinophils (%) August 1.3 % 0-3 MAIN LAB, [address] [place] [address] (Auto) 2019 . [facility] [place] [address] 11:01am Eosinophils (%) June 1.6 % 0-3 MAIN LAB, [address] [place] [address] (Auto) 2019 [place] [address] 11:25pm Eosinophils (%) April 08, 2.7 % 0-3 LEDA N LAB, [address] [place] [address] (Auto) [address] [place] [address] 11:03am Basophils (%) August 0.6 % 0-1 MAIN L AB, [address] [place] [address] (Auto) 2019 . [facility] [place] [address] 11:01am Basophils (%) June 0.7 % 0-1 MAIN L AB, [address] [place] [address] (Auto) 2019 [place] [address] 11:25pm Basophils (%) April 08, 0.7 % 0-1 MAIN LAB, [address] [place] [address] (Auto) [address] [place] [address] 11:03am Immature August 0.4 % 0-1 MAIN LAB, [address] [place] [address] Granulocyte % 2019 . [place] [facility] [place] [address] (Auto) 11:01am Immature June 0.5 % 0-1 MAIN LAB, [address] [place] [address] Granulocyte % 2019 [place] [address] (Auto) 11:25pm Immature April 08, 0.8 % 0-1 MAIN LAB, [address] [place] [address] Granulocyte % 2019 [place] [address] (Auto) 11:03am Neutrophils # August 7.45 1.4-6.5 MAIN L AB, [address] [place] [address] (Auto) 2019 1000/[place]3 [place] [address] 11:01am Neutrophils # June 7.89 1.4-6.5 MAIN L AB, [address] [place] [address] (Auto) 2019 1000/[place]3 [place] [address] 11:25pm Neutrophils # April 08, 5.60 1.4-6.5 MAIN LAB, [address] [place] [address] (Auto) 2019 1000/[place]3 [place] [address] 11:03am Lymphocytes # August 3.56 1.2-3.4 MAIN L AB, [address] [place] [address] (Auto) 2019 1000/[place]3 [place] [address] 11:01am Lymphocytes # June 2.23 1.2-3.4 MAIN L AB, [address] [place] [address] (Auto) 2019 1000/[place]3 [place] [address] 11:25pm Lymphocytes # April 08, 2.65 1.2-3.4 MAIN LAB, [address] [place] [address] (Auto) 2019 1000/[place]3 [place] [address] 11:03am Monocytes # August 0.71 0.0-0.8 MAIN LAB , [address] [place] [address] (Auto) 2019 1000/[place] [address] 11:01am Monocytes # June 0.70 0.0-0.8 MAIN LAB , [address] [place] [address] (Auto) 2019 1000/[place]3 [place] [address] 11:25pm Monocytes # April 08, 0.59 0.0-0.8 MAIN LA B, [address] [place] [address] (Auto) 2019 1000/[place]3 [place] [address] 11:03am Eosinophils # August 0.16 0.0-0.7 MAIN L AB, [address] [place] [address] (Auto) 2019 1000/[place] [address] 11:01am Eosinophils # June 0.18 0.0-0.7 MAIN L AB, [address] [place] [address] (Auto) 2019 1000/[place]3 [place] [address] 11:25pm Eosinophils # April 08, 0.25 0.0-0.7 MAIN LAB, [address] [place] [address] (Auto) 2019 1000/[place]3 [place] [address] 11:03am Basophils # August 0.07 0.0-0.1 MAIN LAB , [address] [place] [address] (Auto) 2019 1000/[place] [address] 11:01am Basophils # June 0.08 0.0-0.1 MAIN LAB , [address] [place] [address] (Auto) 2019 1000/[place]3 [place] [address] 11:25pm Basophils # April 08, 0.06 0.0-0.1 MAIN LA B, [address] [place] [address] (Auto) 2019 1000/[place]3 [place] [address] 11:03am Absolute Immature August 0.1 0-1 MA IN LAB, [address] [place] [address] Granulocyte (auto [address] [place] [facility] [address] 11:01am Absolute Immature June 0.1 0-1 MA IN LAB, [address] [place] [address] Granulocyte (auto 2019 [facility] [place] [facility] [place] [address] 11:25pm Absolute Immature April 08, 0.1 0-1 M AIN LAB, [address] [place] [address] Granulocyte (auto 2019 St [place] [facility] [place] [address] 11:03am Differential August Automated MAIN LA B, [address] [place] [address] [place] [address] 11:01am Differential June Automated MAIN LA B, [address] [place] [address] Method 2019 [place] [address] 11:25pm Differential April 08, Automated MAIN L AB, [address] [place] [address] Method 2019 [place] [address] 11:03am Sodium Level August 137 mmol/L 137-145 MAIN L AB, [address] [place] [address] [place] [address] 11:01am Sodium Level June 138 mmol/L 137-145 MAIN L AB, [address] [place] [address] [address] [place] [address] 11:25pm Potassium Level August 4.3 mmol/L 3.6-5.0 LEDA N LAB, [address] [place] [address] [place] [facility] [place] [address] 11:01am Potassium Level June 3.6 mmol/L 3.6-5.0 LEDA N LAB, [address] [place] [address] [address] [place] [address] 11:25pm Chloride Level Parker 105 mmol/L 98-107 MAIN LAB, [address] [place] [address] [place] [facility] [place] [address] 11:01am Chloride Level June 103 mmol/L 98-107 MAIN LAB, [address] [place] [address] [address] [place] [address] 11:25pm Carbon Dioxide August 26 mmol/L 22-30 MAIN LAB, [address] [place] [address] [place] [address] 11:01am Carbon Dioxide June 29 mmol/L 22-30 MAIN LAB, [address] [facility] Level 2019 [facility] [address] 11:25pm Anion Gap August 1503-25 MAIN LAB, [address] [place] [address] 2019 [facility] [address] 11:01am Anion Gap June 1503-25 MAIN LAB, [address] [place] [address] 2019 [facility] [address]61 11:25pm Blood Urea August 12 mg/dL 05-05 MAIN LAB, [address] [place] [address] Nitrogen 2019 [facility] [address] 11:01am Blood Urea June 13 mg/dL 05-05 MAIN LAB, [address] [place] [address] Nitrogen 2019 [facility] 35795 11:25pm Creatinine August 0.95 mg/dL 0.66-1.25 MAIN LAB , [address] [place] [address] 2019 [facility] [address] 11:01am Creatinine June 0.97 mg/dL 0.66-1.25 MAIN LAB , [address] [place] [address] 2019 [facility] [address]00 11:25pm Glomerular Parker > 60 >60.0 MAIN LAB, [address] [place] [address] Filtration Rate 2019 mL/min [facility] 13427 Calc 11:01am Glomerular June > 60 >60.0 MAIN LAB, [address] [place] [address] Filtration Rate 2019 mL/min [facility] 354[address] Calc 11:25pm Glucose Level August 101 mg/dL 70-100 MAIN L AB, [address] [place] [address] 2019 [facility] 647[address] 11:01am Glucose Level June 125 mg/dL 70-100 MAIN L AB, [address] [place] [address] 2019 [facility] [address]159 11:25pm Calcium Level August 9.4 mg/dL 8.4-10.2 MAIN L AB, [address] [place] [address] 2019 [facility] [address] 11:01am Calcium Level June 9.1 mg/dL 8.4-10.2 MAIN L AB, [address] [place] [address] 2019 [facility] [address]147 11:25pm Calcium Adjusted August 9.6 mg/dL 8.4-10.2 LEDA N LAB, [address] [place] [address] [place] [address] 11:01am Calcium Adjusted June 9.3 mg/dL 8.4-10.2 LEDA N LAB, [address] [place] [address] [place] [address] 11:25pm Total Bilirubin August 0.5 mg/dL 0.2-1.3 MAIN LAB, [address] [place] [address] 2019 [facility] [place] [address] 11:01am Total Bilirubin June 0.3 mg/dL 0.2-1.3 MAIN LAB, [address] [place] [address] 2019 [facility] 12197 11:25pm Aspartate Amino August 34 U/L MAIN LAB, [address] [place] [address] Transf (AST/SGOT) [address] [place] [facility] [facility] [place] [address] 11:01am Aspartate Amino June 34 U/L MAIN LAB, [address] [place] [address] Transf (AST/SGOT) 2019 [facility] [address] 11:25pm Alanine August 50 U/L <50 As of MAIN LAB, [address] [place] [address] Aminotransferase 201901/09/20, [place] [address] (ALT/SGPT) 11:01am Reference Range for ALT/SGPT for adult patients has been updated. The Reference Range for ALT/SGPT has not been established for patients <18 years of age. Alanine June 48 U/L <50 As of MAIN LAB, [address] [place] [address] Aminotransferase 201901/09/20, [place] [address] (ALT/SGPT) 11:25pm Reference Range for ALT/SGPT for adult patients has been updated. The Reference Range for ALT/SGPT has not been established for patients <18 years of age. Troponin I June < 0.012 0-0.034 Reference MAIN LAB, [address] [place] [address] 2019 ng/mL Range: [place] [address] 11:25pm <0.034 ng/mL AMI Cut-off 0.120 ng/mLThe results of this assay can be falsely decreased in patients who consume Biotin. Total Protein August 7.3 g/dL 6.3-8.2 MAIN L AB, [address] [place] [address] 2019 [facility] [place] [place] [address] 11:01am Total Protein June 7.4 g/dL 6.3-8.2 MAIN L AB, [address] [place] [address] [address] [place] [address] 11:25pm Albumin August 4.0 g/dL 3.5-5.0 MAIN LAB, [address] [place] [address] 2019 [facility] [place] [address] 11:01am Albumin June 4.1 g/dL 3.5-5.0 MAIN LAB, [address] [place] [address] [address] [place] [address] 11:25pm Cholesterol Level August 229 mg/dL 59-199 MA IN LAB, [address] [place] [address] 2019 [place] [address] 11:01am HDL Cholesterol August 33 mg/dL 40-60 [facility] [address] [place] [address] 2019 Cholesterol [facility] [address] 11:01am Education Program (NCEP) has set the following guidelines (reference values) for cholesterol, HDL:Low HDL: <40 mg/dLNormal: 40-60 mg/dLDesirab le: >60 mg/dL LDL Cholesterol August 145.0 0-129 MAIN LAB, [address] [place] [address] 2019 mg/dL [place] [address] 11:01am VLDL Cholesterol August 51.0 mg/dL 0-32 MA IN LAB, [address] [place] [address] 2019 [facility] [place] [address] 11:01am Cholesterol/HDL August 6.93 0-3.9 MAIN LAB, [address] [place] [address] Ratio 2019 [facility] [place] [address] 11:01am Triglycerides August 255 mg/dL 0-149 MAIN L AB, [address] [place] [address] Level 2019 [facility] [place] [address] 11:01am Alkaline August 103 U/L 38-126 MAIN LAB, [address] [place] [address] Phosphatase 2019 [place] [address] 11:01am Alkaline June 92 U/L 38-126 MAIN LAB, [address] [place] [address] Phosphatase 2019 [place] [address] 11:25pm Thyroid August 1.89 mlU/L 0.47-4.68 The results MAIN LA B, [address] [place] [address] Stimulating 2019 [place] [address] Hormone (TSH) 11:01am assay can be falsely [...] 08, 2020 11:17am Tori Millan MD co [facility] RADIOLOGY REPORT PATIENT NAME: YOLANDA FANG 15 DATE OF : 1975 ATTENDING/ER PHYSICIAN: Carolina perez NATIONAL SECRETARY ER/ATTENDING PHYSICIAN: PRIMARY CARE PHYS: Out Town [...] April 08, 2020 11:18am Tori Millan MD [facility] RADIOLOGY REPORT PATIENT NAME: YOLANDA FANG 15 DATE OF : 1975 ATTENDING/ER PHYSICIAN: Carolina perez NATIONAL SECRETARY ER/ATTENDING PHYSICIAN: PRIMARY CARE PHYS: Out Town [...] 23, 2020 9:27am [facility] ULTRASOUND REPORT PATIENT NAME: YOLANDA FANG 15 DATE OF : 1975 ATTENDING/ER PHYSICIAN: Jerome ruiz MD ER/ATTENDING PHYSICIAN: PRIMARY CARE PHYS: Carolina Aguirre NATIONAL SECRETARY ADMITTING PHYSICIAN: CONSULTING PHYSICIAN: PROCEDURE DATE: 04/23/20 [...] MD ER/ATTENDING PHYSICIAN: PRIMARY CARE PHYS: Carolina gAuirre NATIONAL SECRETARY ADMITTING PHYSICIAN: CONSULTING PHYSICIAN: PROCEDURE DATE: 06/04/20 [...] 10, 2020 11:49pm Roscoe Guerrero MD comp [facility] EKG PATIENT NAME: YOLANDA FANG 15 DATE OF : 1975 ATTENDING PHYSICIAN: PRIMARY CARE PHYS: Carolina Aguirre NATIONAL SECRETARY DICTATING PHYSICIAN: Roscoe Guerrero MD REPORT STATUS: [...] 1975 ATTENDING/ER PHYSICIAN: Jj Lopez JR , ER/ATTENDING PHYSICIAN: PRIMARY CARE PHYS: Carolina Aguirre NP ADMITTING PHYSICIAN: CONSULTING PHYSICIAN: PROCEDURE DATE: 08/23/20 [...] have a copy on file here at [facility]? No O ctober 2018 12:44pm Pt has a Living Will? No June 25, 2019 12:44pm Do we have a copy on file here at [facility]? No O ctober 2018 12:44pm Pt has a Power of Bore Miner Operator? No June 12:44pm Do we have a copy on file here at [facility]? No O ctober 2018 12:44pm Chief Complaint and Reason for Visit Chief Complaint TESTICLE PAIN FOLLOW UP US RT HIP PAIN; LBP TESTICULAR COMPLAINT New Patient Orchitis and epididymitis Orchitis and epididymitis Chest Pain Other forms of dyspnea follow up Shortness of Breath r/o pe Orchitis and epididymitis Nutrition Concern Follow Up Reason for Visit Epididymo-orchitis Epididymo-orchitis Epididymo-orchitis Encounters Encounter Location(s) Arrival/Admit Discharge/Depart Provider(s ) Date Date Departed [facility] April 07, 2020 April 08, 2020 [facility] Emergency Medical 11:35pm 12:22am Group-Emergency Department Departed [facility] April 08, 2020 April 08, 2020 [facility] Emergency Medical 9:03am 11:39am Group-Emergency Department Departed [facility] April 08, 2020 April 08, 2020 Manuel Figueroa [facility] 9:06am 9:07am , NATIONAL SECRETARY [facility] Departed [facility] April 08, 2020 April 08, 2020 [facility] Emergency Medical 8:44pm 9:10pm Group-Emergency Department Departed [facility] April 09, 2020 April 09, 2020 Jermoe Joshi Physician/Prov Medical 7:23am 8:40am MD [facility] Visit n Urology Services Departed [facility] April 23, 2020 April 23, 2020 Jerome Joshi [facility] 7:43am 7:44am MD [facility] Departed [facility] June 04, June 04, 2020 Jerome Jsohi [facility] 2019 1:17pm 1:18pm MD [facility] Departed [facility] June 10, 2020 June 11, 2020 null Emergency Medical 10:46pm 12:27am Group-Emergency Department Departed [facility] June 18, 2020 June 18, 2020 CARLOTTA Morales [facility] 11:10am 11:11am Lio hernandez [facility] Departed [facility] June 29, June 29, 2020 Jerome Joshi Physician/[facility] Medical 2019 1:41pm 2:05pm MD [facility] Visit n Urology Services Departed [facility] August 20, August 20, 2020 Quinn Lopez JR, [facility] 2019 4:17pm 4:18pm DO [facility] Departed [facility] August 23, August 23, 2020 Quinn Lopez JR, [facility] 2019 11:13am 11:14am DO [facility] Departed [facility] August 27, August 27, 2020 Jerome Joshi [facility] Medical [facility] 2019 2:26pm 2:27pm MD [facility] Departed [facility] September 17, 2020 September 17, 2020 Dedra Eastman Physician/Prov Medical 2:47pm 3:46pm BRENDA [facility] Visit Medicine Departed [facility] September 24, September 24, 2020 Jerome Joshi Physician/[facility] Medical 2020 11:32am 11:54am MD [facility] Visit n Urology Services Recent Diagnosis Onset [...] available Insurance Providers Guarantor YOLANDA FANG Address [address] [place] [id number] Contact Info. Home Phone: Payer Policy Id Coverage Id Subscriber's Subscriber Id Effective E xpiration Name Date Date [place]ICAID [place] [id number] YOLANDA FANG [id number] [place] PA[place] Self N/A Plan of Treatment [...] Referral Date Information Manuel Aguirre Work Phone: [phone] Manuel Figueroa NP [facility] [place] [phone] Manuel Aguirre Work Phone: [phone] Manuel Figueroa NP [facility] [place] [phone] Jerome Willoughby Work Phone: [facility] Urology MD Adi [address] , [address] [facility] [address] Town Out Future Procedures Future procedure information [...] 12 :19am alcohol intake frequency holidays/special occasions June 11, 2020 12:19am only Substance/Street Drug Use No June 11 12:19am Substance Use Treatment No June 11 12:19am Smoking Status Current every day smoker September 24 11:38am Assigned Sex Male Vital Signs Vital Reading [...] 29 020 2:47pm Heart Rate 114 /min 60-June 29 2:47pm Respiratory rate 18 /min -June 29 020 2:47pm BP Systolic 118 mm[Hg] 100-140 June 29 2:47pm BP Diastolic 88 mm[Hg] 50-85 June 29 2:47pm Height 76 [in_i] September 17 2:49pm Weight 198.67 kg September 17 2:49pm BMI (Body Mass Index) 53.3 kg/m2 September 2:49pm Height 76 [in_i] September 24, 11:36am Body Temperature 97.5 [degF] 97.6-99.6 September 24, 2 021 11:36am Heart Rate 109 /min 60-100 September 24 11:36am Respiratory rate 18 /min 12-24 September 24, 2 021 11:36am BP Systolic 132 mm[Hg] 100-140 September 24, 11:36am BP Diastolic 88 mm[Hg] 50-85 September 24, 11:36am Hospital Discharge Instructions
--- OUTSIDE RECORDS SUMMARY | 2022-03-21 09:32 | XMS_ITS | Continuity of Care Document ---
:1975 Author Organization [facility] Address [address] [place] [address] Phone Care Team Providers Name Role Phone PCP, of Choice Primary Care Provider Unavailable Out of Town, Provider Primary Care Provider Unavailable Carolina Aguirre Attending Provider Carolina Aguirre Primary Care Provider Kwaku Joshi Attending Provider Allergies, Adverse Reactions, Alerts Allergen Type Severity Reaction Last Updated Verified Status cephalexin Allergy unknown April 09, 2020 8:29am Yes Active Medications Medication Status Dose Units Route Directions Qty Days Start End Ins tructions Date Date Oxycodone Active 5 MG PO TWICE A DAY April 09, 2020 8:28am Gabapentin Active 300 MG PO THREE TIMES Tonya A DAY 2019 12:45a m Ibuprofen Active 600 MG PO THREE TIMES Tonya A DAY 2019 12:45a m Levofloxacin Active 750 MG PO DAILY 10 April 08, 2020 1:03am Problems Active Problems Medical Problem Onset Date Status Heart palpitations Active Epididymo-orchitis Active Inactive/Resolved Problems Medical Problem Onset Date Status Testicular abscess Resolved Vaso-vagal reaction Resolved Left epididymitis Resolved Procedures Procedure Date Performed Status US Testicles (Scrotal) June 04, 2020 2:30pm completed US Testicles (Scrotal) April 23, 2020 8:30am completed Hip 2 vw Min RT April 08, 2020 10:38am completed Lumbar Spine 2-3 vw April 08, 2020 10:39am completed INTERFACE ELECTROCARDIOGRAM June 25, 2019 1:23pm comple anselmo Chest 2 vw June 25, 2019 1:28pm completed INTERFACE ELECTROCARDIOGRAM June 10, 2020 11:58pm comple anselmo US Testicles (Scrotal) April 08, 2020 12:00am completed Relevant Diagnostic Tests and/or Laboratory Data Laboratory Results Test Date/Time Result Interpretation Reference Result Perfo rming Range Comment Site POC Urinalysis April 09, Clinitek Method 2019 Auto 8:35am Urine Color April 09, Yellow (Manual) 2019 8:35am Urine Clarity April 09, Clear (Manual) 2019 8:35am POC Urine Glucose April 09, Negative 2019 8:35am POC Urine April 09, Negative Bilirubin 2019 Confirmation 8:35am Urine Ketones April 09, Negative (Manual) 2019 8:35am Urine Specific April 09, 1.025 [place] (Manual) 2019 8:35am POC Urine RBC April 09, Trace 2019 Intact 8:35am Urine pH (Manual) April 09, 5.5 2019 8:35am POC Urine Protein April 09, Negative Confirmation 2019 8:35am Urine April 09, 0.2 Urobilinogen 2019 (Manual) 8:35am Urine Nitrite April 09, Negative (Manual) 2019 8:35am Urine Leukocyte April 09, Negative Esterase (Manual) 2019 8:35am White Blood Count June 16. 4.8-10.8 [place] [facility], [address] [place] [address] 2018 1000/mm3 . [facility] [address] 1:32[facility] White Blood Count June 20. 4.8-10.8 [place] [facility], [address] [place] [address] 2019 1000/mm3 [facility] 15634 12:25am White Blood Count April 08, 9.22 4.8-10.8 M AIN LAB, [address] [place] [address] 2019 1000/mm3 [facility] 27585 12:03pm Red Blood Count June 5.10 M/mm3 4.70-6.00 [facility] N [facility], [address] [place] [address] 2018 [facility] Jamar [facility] 07239 1:32pm Red Blood Count June 5.37 M/mm3 4.70-6.00 [facility], [address] [place] [address] 2019 [facility] 79957 12:25am Red Blood Count April 08, 5.22 M/mm3 4.70-6.00 MA IN LAB, [address] [place] [address] 2019 [facility] 58232 12:03pm Hemoglobin June 14.2 g/dL 14.0-18.0 MAIN LAB, [address] [place] [address] 2018 [facility] 39284 1:32pm Hemoglobin June 15.1 g/dL 14.0-18.0 MAIN LAB, [address] [place] [address] 2019 [facility] 51636 12:25am Hemoglobin April 08, 14.7 g/dL 14.0-18.0 MAIN LAB , [address] [place] [address] 2019 [facility] 92251 12:03pm Hematocrit June 43.7 % 42-52 MAIN LAB, [address] [place] [address] 2018 [facility] Jamar [facility] 83390 1:32pm Hematocrit June 46.7 % 42-52 MAIN LAB, [address] [place] [address] 2019 [facility] 18132 12:25am Hematocrit April 08, 45.9 % 42-52 MAIN LAB , [address] [place] [address] 2019 [facility] 27809 12:03pm Mean Corpuscular June 85.7 fL 80.0-94.0 [facility], [address] [place] [address] 2018 [facility] [place] [address] 1:32pm Mean Corpuscular June 87.0 fL 80.0-94.0 [facility], [address] [place] [address] 2019 [facility] 63111 12:25am Mean Corpuscular April 08, 87.9 fL 80.0-94.0 MA IN LAB, [address] [place] [address] Volume 2019 [place] [address] 12:03pm Mean Corpuscular June 27.8 pg 27-31 [facility], [address] [place] [address] [place] [address] 1:32pm Mean Corpuscular June 28.1 pg 27-31 [facility], [address] [place] [address] [place] [address] 12:25am Mean Corpuscular April 08, 28.2 pg 27-31 [place] IN LAB, [address] [place] [address] [place] [address] 12:03pm Mean Corpuscular June 32.5 g/dL 33-37 [facility], [address] [place] [address] [place] [address] Concent 1:32pm Mean Corpuscular June 32.3 g/dL 33-37 [facility], [address] [place] [address] [place] [address] Concent 12:25am Mean Corpuscular April 08, 32.0 g/dL 33-37 [place] IN LAB, [address] [place] [address] [place] [address] Concent 12:03pm Red Cell June 13.6 % 11.5-14.5 MAIN LAB, [address] [place] [address] [address] [place] [address] Width 1:32pm Red Cell June 14.1 % 11.5-14.5 MAIN LAB, [address] [place] [address] [address] [place] [address] Width 12:25am Red Cell April 08, 14.0 % 11.5-14.5 MAIN LAB, [address] [place] [address] [address] [place] [address] Width 12:03pm Platelet Count June 249 140-440 MAIN LAB, [address] [place] [address] 2018 1000/[place]3 [place] [address] 1:32pm Platelet Count June 276 140-440 MAIN LAB, [address] [place] [address] 2019 1000/mm3 [place] [address] 12:25am Platelet Count April 08, 284 140-440 MAIN LAB, [address] [place] [address] 2019 1000/mm3 [place] [address] 12:03pm Mean Platelet June 10.4 fL 7.4-10.4 MAIN L AB, [address] [place] [address] [place] [address] 1:32pm Mean Platelet June 10.3 fL 7.4-10.4 MAIN L AB, [address] [place] [address] Volume 2019 [place] [address] 12:25am Mean Platelet April 08, 10.4 fL 7.4-10.4 MAIN LAB, [address] [place] [address] 2019 [place] [address] 12:03pm Neutrophils (%) June 59.3 % 40.0-72.0 MAIN LAB, [address] [place] [address] (Auto) 2018 [place] [address] 1:32pm Neutrophils (%) June 70.9 % 40.0-72.0 MAIN LAB, [address] [place] [address] (Auto) 2019 [place] [address] 12:25am Neutrophils (%) April 08, 60.7 % 40.0-72.0 [facility] N [facility], [address] [place] [address] (Auto) 2019 [place] [address] 12:03pm Lymphocytes (%) June 31.0 % 17-45 MAIN LAB, [address] [place] [address] (Auto) 2018 [place] [address] 1:32pm Lymphocytes (%) June 20.0 % 17-45 MAIN LAB, [address] [place] [address] (Auto) 2019 [place] [address] 12:25am Lymphocytes (%) April 08, 28.7 % 17-45 LED[facility] N [facility], [address] [place] [address] (Auto) 2019 [place] [address] 12:03pm Monocytes (%) June 6.6 % 3-11 MAIN L AB, [address] [place] [address] (Auto) 2018 [place] [address] 1:32pm Monocytes (%) June 6.3 % 3-11 MAIN L AB, [address] [place] [address] (Auto) 2019 [place] [address] 12:25am Monocytes (%) April 08, 6.4 % 3-11 MAIN LAB, [address] [place] [address] (Auto) 2019 [place] [address] 12:03pm Eosinophils (%) June 1.8 % 0-3 MAIN LAB, [address] [place] [address] (Auto) 2018 [place] [address] 1:32pm Eosinophils (%) June 1.6 % 0-3 MAIN LAB, [address] [place] [address] (Auto) 2019 [place] [address] 12:25am Eosinophils (%) April 08, 2.7 % 0-3 LED[facility] N [facility], [address] [place] [address] (Auto) 2019 [place] [address] 12:03pm Basophils (%) June 0.7 % 0-1 MAIN L AB, [address] [place] [address] (Auto) 2018 [place] [address] 1:32pm Basophils (%) June 0.7 % 0-1 MAIN L AB, [address] [place] [address] (Auto) 2019 [place] [address] 12:25am Basophils (%) April 08, 0.7 % 0-1 MAIN LAB, [address] [place] [address] (Auto) 2019 [place] [address] 12:03pm Immature October 0.6 % 0-1 MAIN LAB, [address] [place] [address] Granulocyte % 2018 [place] [address] (Auto) 1:32pm Immature June 0.5 % 0-1 MAIN LAB, [address] [place] [address] Granulocyte % [address] [place] [address] (Auto) 12:25am Immature April 08, 0.8 % 0-1 MAIN LAB, [address] [place] [address] Granulocyte % 2019 [place] [address] (Auto) 12:03pm Neutrophils # June 4.30 1.4-6.5 MAIN L AB, [address] [place] [address] (Auto) 2018 1000/[place]3 [place] [address] 1:32pm Neutrophils # June 7.89 1.4-6.5 MAIN L AB, [address] [place] [address] (Auto) 2019 1000/mm3 [place] [address] 12:25am Neutrophils # April 08, 5.60 1.4-6.5 MAIN LAB, [address] [place] [address] (Auto) 2019 1000/mm3 [place] [address] 12:03pm Lymphocytes # June 11.25 1.2-3.4 MAIN L AB, [address] [place] [address] (Auto) 2018 1000/[place]3 [place] [address] 1:32pm Lymphocytes # June 2.23 1.2-3.4 MAIN L AB, [address] [place] [address] (Auto) 2019 1000/mm3 [place] [address] 12:25am Lymphocytes # April 08, 2.65 1.2-3.4 MAIN LAB, [address] [place] [address] (Auto) 2019 1000/mm3 [place] [address] 12:03pm Monocytes # June 0.48 0.0-0.8 MAIN LAB , [address] [place] [address] (Auto) 2018 1000/[place]3 [place] [address] 1:32pm Monocytes # June 0.70 0.0-0.8 MAIN LAB , [address] [place] [address] (Auto) 2019 1000/mm3 [place] [address] 12:25am Monocytes # April 08, 0.59 0.0-0.8 MAIN LA B, [address] [place] [address] (Auto) 2019 1000/mm3 [place] [address] 12:03pm Eosinophils # June 0.13 0.0-0.7 MAIN L AB, [address] [place] [address] (Auto) 2018 1000/[place]3 [place] [address] 1:32pm Eosinophils # June 0.18 0.0-0.7 MAIN L AB, [address] [place] [address] (Auto) 2019 1000/mm3 [place] [address] 12:25am Eosinophils # April 08, 0.25 0.0-0.7 MAIN LAB, [address] [place] [address] (Auto) 2019 1000/mm3 [place] [address] 12:03pm Basophils # June 0.05 0.0-0.1 MAIN LAB , [address] [place] [address] (Auto) 2018 1000/[place]3 [place] [address] 1:32pm Basophils # June 0.08 0.0-0.1 MAIN LAB , [address] [place] [address] (Auto) 2019 1000/mm3 [place] [address] 12:25am Basophils # April 08, 0.06 0.0-0.1 MAIN LA B, [address] [place] [address] (Auto) 2019 1000/mm3 [place] [address] 12:03pm Absolute Immature October 0.0 0-1 MA IN LAB, [address] [place] [address] Granulocyte (auto [address] [place] [address] 1:32pm Absolute Immature October 0.1 0-1 MA IN LAB, [address] [place] [address] Granulocyte (auto [address] [place] [address] 12:25am Absolute Immature April 08, 0.1 0-1 M AIN LAB, [address] [place] [address] Granulocyte (auto [address] [place] [address] 12:03pm Differential June Automated MAIN LA B, [address] [place] [address] [place] [address] 1:32pm Differential June Automated MAIN LA B, [address] [place] [address] Method 2019 [place] [address] 12:25am Differential April 08, Automated MAIN L AB, [address] [place] [address] Method 2019 [place] [address] 12:03pm Sodium Level June 137 mmol/L 137-145 MAIN L AB, [address] [place] [address] [place] [address] 1:32pm Sodium Level June 138 mmol/L 137-145 MAIN L AB, [address] [place] [address] 2019 [place] [address] 12:25am Potassium Level June 3.8 mmol/L 3.6-5.0 [facility] N [facility], [address] [place] [address] [address] [facility] [place] [address] 1:32pm Potassium Level June 3.6 mmol/L 3.6-5.0 [facility] N [facility], [address] [place] [address] 2019 [place] [address] 12:25am Chloride Level June 104 mmol/L 98-107 MAIN LAB, [address] [place] [address] [place] [address] 1:32pm Chloride Level June 103 mmol/L 98-107 MAIN LAB, [address] [place] [address] 2019 [place] [address] 12:25am Carbon Dioxide June 23 mmol/L -30 MAIN LAB, [address] [place] [address] [place] [address] 1:32pm Carbon Dioxide June 29 mmol/L MAIN LAB, [address] [place] [address] 2019 [place] [address] 12:25am Anion Gap June 1903-25 MAIN LAB, [address] [place] [address] [address] [place] [address] 1:32pm Anion Gap June 1503-25 MAIN LAB, [address] [place] [address] 2019 [place] [address] 12:25am Blood Urea June 12 mg/dL - MAIN LAB, [address] [place] [address] Nitrogen 2018 [facility] 13444 1:32pm Blood Urea June 13 mg/dL 8- MAIN LAB, [address] [place] [address] Nitrogen 2019 [facility] 10547 12:25am Creatinine June 0.82 mg/dL 0.66-1.25 MAIN LAB , [address] [place] [address] 2018 [facility] 52894 1:32pm Creatinine June 0.97 mg/dL 0.66-1.25 MAIN LAB , [address] [place] [address] 2019 [facility] 25284 12:25am Glomerular October > 60 >60.0 MAIN LAB, [address] [place] [address] Filtration Rate 2018 mL/min [facility] [address] Calc 1:32pm Glomerular October > 60 >60.0 MAIN LAB, [address] [place] [address] Filtration Rate 2019 mL/min [facility] [address] Calc 12:25am Glucose Level October 99 mg/dL 70-100 MAIN L AB, [address] [place] [address] 2018 [facility] [address]502 1:32pm Glucose Level October 125 mg/dL 70-100 MAIN L AB, [address] [place] [address] 2019 [facility] [address]85[address] 12:25am Calcium Level October 8.5 mg/dL 8.4-10.2 MAIN L AB, [address] [place] [address] 2018 [facility] 72202 1:32pm Calcium Level October 9.1 mg/dL 8.4-10.2 MAIN L AB, [address] [place] [address] 2019 [facility] 49539 12:25am Calcium Adjusted June 9.3 mg/dL 8.4-10.2 [facility] N [facility], [address] [place] [address] [facility] [address] 12:25am Total Bilirubin June 0.3 mg/dL 0.2-1.3 MAIN LAB, [address] [place] [address] 2019 [facility] 23464 12:25am Aspartate Amino October 34 U/L 17-59 MAIN LAB, [address] [place] [address] Transf (AST/SGOT) 2019 [facility] [address]882 12:25am Alanine June 48 U/L <50 As of MAIN LAB, [address] [place] [address] Aminotransferase 201901/09/20, [place] [address] (ALT/SGPT) 12:25am Reference Range for ALT/SGPT for adult patients has been updated. The Reference Range for ALT/SGPT has not been established for patients <18 years of age. Troponin I June < 0.012 0-0.034 Reference MAIN LAB, [address] [place] [address] 2018 ng/mL Range: [place] [address] 1:32pm <0.034 ng/mL AMI Cut-off 0.120 ng/mLThe results of this assay can be falsely decreased in patients who consume Biotin. Troponin I June < 0.012 0-0.034 Reference MAIN LAB, [address] [place] [address] 2019 ng/mL Range: [place] [address] 12:25am <0.034 ng/mL AMI Cut-off 0.120 ng/mLThe results of this assay can be falsely decreased in patients who consume Biotin. Total Protein June 7.4 g/dL 6.3-8.2 MAIN L AB, [address] [place] [address] 2019 [place] [address] 12:25am Albumin June 4.1 g/dL 3.5-5.0 MAIN LAB, [address] [place] [address] 2019 [place] [address] 12:25am Alkaline June 92 U/L 38-126 MAIN LAB, [address] [place] [address] [place] [address] 12:25am Diagnostic Imaging Reports Report Dictated Date/Time Dictated By Status Electrocardiogram June 25, 2019 1:07pm [facility] EKG PATIENT NAME: YOLANDA FANG DATE [...] June 25, 2019 1:52pm Mario Gotti completed [facility] RADIOLOGY REPORT PATIENT NAME: YOLANDA FANG [...] 2020 10:52am Tori Millan MD co mpleted [facility] ULTRASOUND REPORT PATIENT NAME: YOLANDA FANG [...] 2020 11:17am Tori Millan MD co mpleted [facility] RADIOLOGY REPORT PATIENT NAME: YOLANDA FANG [...] 2020 11:18am Tori Millan MD co mpleted [facility] RADIOLOGY REPORT PATIENT NAME: YOLANDA FANG [...] 2020 9:27am Tori Millan MD c ompleted [facility] ULTRASOUND REPORT PATIENT NAME: YOLANDA FANG 15 DATE OF : 1975 ATTENDING/ER PHYSICIAN: Jerome ruiz MD ER/ATTENDING PHYSICIAN: PRIMARY CARE PHYS: Carolina Aguirre [employer] ADMITTING PHYSICIAN: CONSULTING PHYSICIAN: PROCEDURE DATE: 04/23/20 [...] 04, 2020 2:34pm Jaye Scott MD completed [facility] ULTRASOUND REPORT PATIENT NAME: YOLANDA FANG [...] 10, 2020 11:49pm Roscoe Guerrero MD comp [facility] EKG PATIENT NAME: YOLANDA FANG 15 DATE OF : 1975 ATTENDING PHYSICIAN: PRIMARY CARE PHYS: Carolina Aguirre [employer] DICTATING PHYSICIAN: Roscoe Guerrero MD REPORT STATUS: [...] have a copy on file here at [facility]? No O ctober 2018 1:44pm Pt has a Living Will? No June 25, 2019 1:44pm Do we have a copy on file here at [facility]? No O ctober 2018 1:44pm Pt has a Power of Academic Affairs Dean? No June 1:44pm Do we have a copy on file here at [facility]? No O ctober 2018 1:44pm Chief Complaint and Reason for Visit Chief Complaint Back Up TESTICLE PAIN FOLLOW UP US RT HIP PAIN; LBP TESTICULAR COMPLAINT New Patient Orchitis and epididymitis Orchitis and epididymitis Chest Pain Reason for Visit Epididymo-orchitis Encounters Encounter Location(s) Arrival/Admit Date Discharge/Depart Date Provider(s) Departed [facility] June 25, 2019 June 25, 2019 monica bonilla Emergency [facility] 1:09pm 3:45pm Center-Emergency Department Departed [facility] April 08, 2020 April 08, 2020 null Emergency Medical 12:35am 1:22am Center-Emergency Department Departed [facility] April 08, 2020 April 08, 2020 null Emergency Medical 10:03am 12:39pm Center-Emergency Department Departed [facility] April 08, 2020 April 08, 2020 Manuel Aguirre [facility] 10:06am 10:07am SRIDEVI Figueroa [facility] Departed [facility] April 08, 2020 April 08, 2020 [facility] Emergency Medical 9:44pm 10:10pm Center-Emergency Department Departed [facility] April 09, 2020 April 09, 2020 Jerome Willoughby Physician/Prov Medical 8:23am 9:40am MD [facility] international account executive Services Departed [facility] April 23, 2020 April 23, 2020 Jerome younger [facility] 8:43am 8:44am MD Adi [facility] Departed [facility] June 04, June 04, 2020 Jerome cordova [facility] 2019 2:17pm 2:18pm MD Adi [facility] Departed [facility] June 10, 2020 June 11, 2020 [facility] Emergency Medical 11:46pm 1:27am Center-Emergency Department Recent Diagnosis Onset Date Epididymo-orchitis Assessments Diagnosis Onset Date Resolution Status Epididymo-orchitis acute Functional Status Observation Response Date Recorded Living Situation Home June 25, 2019 3 :45pm Living Situation Home June 11, 2020 1: 27am Living Situation Home April 08, 2020 9:51 [...] Equipment Information available Insurance Providers Guarantor YOLANDA Bonilla FANG Address [address] [place] [address] Contact Info. Home Phone: Payer Policy Id Coverage Id Subscriber's Subscriber Id Effective E xpiration Name Date Date MEDICAID OF [id number] YOLANDA FANG [id number] [place] SELF PAY Self N/A Plan of Treatment [...] Provider Address Referral Date Information Pcp Estelita A Timothy Work Phone: [phone] Figueroa , [employer] [id number] Manuel Aguirre Work Phone: [address] Figueroa , [employer] [place] [employer] [address] Jerome Willoughby Work Phone: [facility] Urology MD Adi [facility] , [facility] [place] [address] Town Out Future Procedures Future procedure information is unavailable Future Medications Future medication information is unavailable Patient Instructions Epididymitis (DC) COVID 19 General Instructions- decrease the spread of coronavirus ([facility]) COVID 19 General Instructions- decrease the spread of coronavirus ([facility]) Palpitations (DC) COVID 19 General Instructions- decrease the spread of coronavirus ([facility]) Social History Smoking Status Status Date of Observation Smokes tobacco daily (finding) June 11, 2020 1:19a m Observation Status Observation Response Date of Response Alcohol Use No June 11, 2020 1: 19am alcohol intake frequency holidays/special occasions only Oct nishant 2019 1:19am Substance/Street Drug Use No June 11 1:19am Substance Use Treatment No June 11 0 1:19am Smoking Status Current every day smoker June 11 1:19am Assigned Sex Male Vital Signs Vital Reading Result Reference Range Collection Date/ Time Weight 190.96 kg June 25 1:13pm Body Temperature 97.4 [degF] 97.6-99.6 June 25 2 019 1:13pm Heart Rate 98 /min 60-100 June 25 3:45pm Respiratory rate 20 /min 12-24 June 25 2 019 3:45pm Oxygen saturation by Pulse [...] June 11 1:27am Respiratory rate 16 /min 12-June 11 1:27am Oxygen saturation by Pulse 99 % 95-100 Octob 2019 1:27am oximetry BP Systolic 124 mm[Hg] 100-140 June 11 0 1:27am BP Diastolic 75 mm[Hg] 50-85 June 11 0 1:27am Hospital Discharge Instructions Additional Instructions You were seen in the emergency department today for evaluation of fast heart rate, almost passing out. You need to follow-up with your primary care provider. Call tomorrow to schedule an appointment for soon as possible. Return to the emergency department immediately if you develop any passing out, fever, cough, or for any other concerning or worsening symptoms at all.
--- OUTSIDE RECORDS SUMMARY | 2022-03-21 09:32 | XMS_ITS | Continuity of Care Document ---
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 Follow Up Follow Up Reason for Visit Hearing loss, bilateral Multinodular goiter (nontoxi c) Morbid obesity due to excess calories Multinodular goiter (nontoxi c) Smoker Hoarseness of voice Otomycosis of left ear Hearing loss, bilateral Laryngopharyngeal reflux (LP R) Multinodular goiter (nontoxi c) Hoarseness of voice Allergies, Adverse Reactions, Alerts Allergen Type Severity Reaction Last Updated Verified Status cephalexin Allergy gi upset February 23, 2022 12:58pm Yes Active Social History Smoking Status Status Start Date End Date Date of Observat ion Smokes tobacco daily (finding) J une 2021 4:13pm Observation Status Observation Response Date of Response Alcohol Use Yes September 29, 2021 1 0:03pm alcohol intake frequency holidays/special occasions September 29, 2021 10:03pm only Substance/Street Drug Use Yes September 29, 2021 10:03pm Substance Use Treatment No September 29 10:03pm substance use type marijuana September 29, 2021 1 0:03pm Smoking Status Current every day smoker February 16, 2022 4:13pm Additional Data Assigned Sex Male Family History Relationship Condition Age at Onset Recorded Date/Ti me Not Specified Polyp of colon Unknown Problems Active Problems Medical Problem Onset Date Status Multinodular goiter (nontoxic) Active Multinodular goiter (nontoxic) Active Epididymo-orchitis Active Otomycosis of left ear Active Change in bowel function Active Morbid obesity due to excess calories Ac tive Laryngopharyngeal reflux (LPR) Active Hearing loss, bilateral Active Smoker Active Inactive/Resolved Problems Medical Problem Onset Date Status Testicular abscess Resolved Heart palpitations Resolved Palpitations Resolved Hoarseness of voice Resolved Acute viral syndrome Resolved Conjunctivitis Resolved Otitis media Resolved Vaso-vagal reaction Resolved Left acute suppurative otitis media Reso lved Left epididymitis Resolved Hypertension Resolved Medications Medication Status Dose Units Route Directions Qty Days Start End Ins tructions Date Date Levofloxacin Disconti 500 MG PO DAILY 10 Decembe [facility] nued , er 2019, 1:00am 2019 1:01am Omeprazole Active 40 MG PO TWICE A DAY 60 November 23, 2021 12:00am Clotrimazole Active 0 TOP TWICE A DAY February 5 drops in 16th, LEFT ear 2021 twice daily x 12:00am 14 days Gabapentin Disconti 300 MG PO THREE TIMES March nu A DAY 2019 12:00am 8:06am Ibuprofen Active 600 MG PO THREE TIMES Tonya A DAY 2019 12:00am Levofloxacin Disconti 750 MG PO DAILY 19 March Octobe nued 2019, 12:00am 2019 2:44pm Metoprolol Disconti 50 MG PO TWICE A DAY February Tartrate nued , 2020 12:00am 1:01pm Erythromycin Disconti 1 APPLIC LEFTEYE DAILY 3.5 February nued , 2020 12:00am 8:06am Cyclobenzapr Active MG TABLET Decembe ine r 2020 1:00am Gabapentin Active MG TABLET Decembe r 2020 1:00am Meloxicam Active MG TABLET Decembe r 2020 1:00am Amoxicillin Disconti 875 MG PO TWICE A DAY 14 Dec emb nued r , er 2021 08, 1:00am 2020 1:01am Amoxicillin- Disconti 1 TAB PO TWICE A DAY 29 September Ju ne Pot nued , Clavulanate 2021 2021 (Augmentin) 1:00am 1:01pm 875-125 mg tablet Immunizations Immunization Event Not Given Dose [employer] Lot Number Vac cine Date Reason Number Informatio n Statement (VIS) Detail Covid-27 December 30mcg/0.3ml , Pfizer (Purple 2020 top) Covid-January 19, 30mcg/0.3ml 2020 Pfizer (Purple top) Procedures Procedure Date Performed Status US Thyroid Soft Tissue Neck September 15, 2021 3:00pm complet ed US Gd FNA Breast/Node/Thyroid November 11, 2021 12:00pm comple anselmo CT Chest w/o Contrast September 08, 2021 6:00pm completed Relevant Diagnostic Tests and/or Laboratory Data Laboratory Results Test Date/Time Result Interpretation Reference Result Comment Performing Range Site SARS-Co September Negative Negative Note: This RT- PCR assay is intended for the in vitro qualitative detection of nucleic acid from SARS-CoV-2. [facility] V-2 RNA 2021 This test has not been FDA cleared or approved. This test has been authorized by the FDA under an Emergency Use Authorization (EUA) for use by authorized laboratories. [facility] (RT-PCR 9:54pm Fact sheets for prov iders can be found at: [address] [facility] ) fda.gov/media/64616 5/[place] [address] Fact sheets for audra ents can be found at: fda.gov/media/91514 7/download Diagnostic Imaging Reports Report Dictated Date/Time Dictated [...] [facility] PATIENT NAME: YOLANDA FANG [...] TI-RA DS 4 right thyroid nodule. dd: 09/16/21820 <Electronically signed by Arnie brasher MD in OV> 09/16/21 0847 Report Dictated Date/Time Dictated By Status Radiology Report November 11, 2021 1:09pm Arnie Murillo MD completed [facility] ULTR[facility] RE[facility] PATIENT NAME: YOLANDA FANG [...] informed consent was obtained from the patient. [place] protocol including a timeout was performed prior [...] site in the left anterior neck was sohae d with a marker utilizing ultra sonographic [...] the needle and directly submitted to the radiological technologist who was present for the pro cedure. A total of four passes were made in this fashion and directly submitted t o the radiological technologist who was present for the procedure. The [...] Range Collection Date/ Time Height 76 [in_i] August 14 12:07am Weight 196.40 kg August 14 12:07am Body Temperature 98.4 [degF] 97.6-99.6 August 14, 2 021 12:07am Heart Rate 88 /min 60-100 August 14 2:30am Respiratory rate 22 /min -August 14, 2 021 2:30am Oxygen saturation by Pulse 98 % 95-100 Dece 2020 2:30am oximetry BP Systolic 160 mm[Hg] 100-140 August 14 2:30am BP Diastolic 100 mm[Hg] 50-85 August 14 2:30am Height 76 [in_i] September 29 9:52pm Weight 90.71 kg September 29 9:52pm Body Temperature 98.2 [degF] 97.6-99.6 September 29, 2 022 9:52pm Heart Rate 100 /min 60-100 September 29 9:52pm Respiratory rate 18 /min -September 29, 2 022 9:52pm Oxygen saturation by Pulse 100 % 95-100 Jan 2021 9:52pm oximetry BP Systolic 159 mm[Hg] 100-140 September 29 9:52pm BP Diastolic 89 mm[Hg] 50-85 September 29 9:52pm BP Systolic 130 mm[Hg] 100-140 October 11 12:44pm BP Diastolic 90 mm[Hg] 50-85 October 11 12:44pm Height 76 [in_i] November 23, 2021 8:06am Weight 190.70 kg November 23, 2021 8:06am Heart Rate 86 /min 60-100 November 23, 2021 8:06am Oxygen saturation by Pulse 99 % 95-100 November 23, 2021 8:06am oximetry BP Systolic 142 mm[Hg] 100-140 November 23, 2021 8:06am BP Diastolic 90 mm[Hg] 50-85 November 23, 2021 8:06am BMI (Body Mass Index) 51.1 kg/m2 November 8:06am Height 76 [in_i] February 23, 2022 1:02pm Weight 199.58 kg February 23, 2022 1:02pm Heart Rate 100 /min 60-100 February 23, 2022 1:02pm Respiratory rate 22 /min 12-24 February 23, 2022 1:02pm Oxygen saturation by Pulse 99 % 95-100 February 23, 2022 1:02pm oximetry BP Systolic 150 mm[Hg] 100-140 February 23, 2022 1:02pm BP Diastolic 110 mm[Hg] 50-85 February 23, 2022 1:02pm BMI (Body Mass Index) 53.5 kg/m2 February 23, 2022 1:02pm Advance Directives Advance Directive Response Recorded Date/Time [...] 2018 1:44pm Pt has a Power of Corporate Secretary? No June 1:44pm Do we have a copy on file here at [facility]? No O ctober 2018 1:44pm Insurance Providers Guarantor YOLANDA FANG Address [address] [place] [id number] Contact Info. Home Phone: Payer Policy Id Coverage Id Subscriber's Subscriber Id Effective E xpiration Name Date Date Dalton [id number] YOLANDA FANG [id number] [facility] SELF PAY Self N/A Encounters Encounter Location(s) Arrival/Admit Date Discharge/Depart Date Provider(s) Departed [facility] August 14, 2021 August 14, 2021 [facility] Medical 12:02am 2:34am Group-Emergency Department Departed [facility] September 08, September 08, 2021 Qiunn [facility] 2020 6:01pm 6:02pm DO RUDDY [facility] Departed [facility] September 15, 2021 September 15, 2021 Kenna Morel [facility] 2:43pm 2:44pm SRIDEVI [facility] Departed [facility] September 29, 2021 September 29, 2021 [facility] 7:31pm 10:12pm Group-Emergency Department Departed [facility] October 11, 2021 October 11, 2021 Anibal Mandel Physician/Prov Medical 12:31pm 1:03pm DO vandana Suarez [facility] Visit n ENT Departed [facility] November 11, 2021 November 11, 2021 Mackenzie Mand[facility] 11:48am 11:49am DO Erick [facility] Departed [facility] November 23, 2021 November 23, 2021 Mackenzie Mandel Physician/[facility] 8:02am 8:47am DO vandana Suarez [facility] Visit n ENT Departed [facility] February 23, 2022 February 23, 2022 Mackenzie Mandel Physician/Prov Medical 12:57pm 1:22pm DO albert [facility] Visit n ENT Recent Diagnosis Onset Date Hearing loss, bilateral Multinodular goiter (nontoxic) Morbid obesity due to excess calories Multinodular goiter (nontoxic) Smoker Hoarseness of voice Otomycosis of left ear Hearing loss, bilateral Laryngopharyngeal reflux (LPR) Multinodular goiter (nontoxic) Hoarseness of voice Functional Status Observation Response Date Recorded Living Situation Home September 29, 2021 1 0:08pm With Family September 29, 2021 1 0:08pm Mental Status Observation Response Date Recorded Speech Appropriate September 29, 2021 1 0:00pm Assessments Diagnosis Onset Date Resolution Status Hearing loss, bilateral chronic Multinodular goiter (nontoxic) c hronic Morbid obesity due to excess calories chronic Multinodular goiter (nontoxic) c hronic Smoker chronic Hoarseness of voice resolved Otomycosis of left ear acute Hearing loss, bilateral chronic Laryngopharyngeal reflux (LPR) c hronic Multinodular goiter (nontoxic) c hronic Hoarseness of voice resolved Plan of Treatment Future Tests Future scheduled test information is unavailable Pending Tests Test Name Date ordered US Thyroid Soft Tissue Neck November 23, 2021 8:41am Future Visits Future appointment information is unavailable Referrals to Other Providers Reason for Referral Start Provider Provider Contact Provider Address Referral Date Information Jj Lopez Work Phone: Alicia FUENTES JR, DO [address] [place] [phone] Jj Lopez Work Phone: Alicia FUENTES JR, DO [address] [place] [phone] Future Procedures Future procedure information is unavailable Future Medications Future medication information is unavailable Patient Instructions Ear Infection ED Viral Syndrome (DC) Ear Infection ED Thyroidectomy Outer Ear Infection Hospital Discharge Instructions
--- OUTSIDE RECORDS SUMMARY | 2022-03-21 09:33 | XMS_ITS | Continuity of Care Document ---
:1975 Author Organization [facility] Address [address] [place] [address] Phone Care Team Providers Name Role Phone [...] 8:28am Gabapentin Active 300 MG PO THREE Tonya TIMES A 2019 12:45am Ibuprofen Active 600 MG PO THREE March TIMES A 2019 12:45am Levofloxacin Active 750 MG PO DAILY April 08, 2020 1:03am Problems Active Problems Medical Problem Onset Date Status Epididymo-orchitis Active Inactive/Resolved Problems Medical Problem Onset Date Status Testicular abscess Resolved Vaso-vagal reaction Resolved Left epididymitis Resolved Procedures Procedure Date Performed Status US Testicles (Scrotal) April 23, 2020 8:30am [...] 2019 8:35am Urine Specific April 09, 1.025 [place] 2019 8:35am (Manual) POC Urine RBC April [...] 08, 9.22 4.8-10.8 MAIN LA B, [address] Count 2019 1000/[place]3 [place] [address] 12:03pm White Blood June 7.25 4.8-10.8 MAIN LAB , [address] Count 2018 1000/mm3 . [facility] [address] 1:32pm Red Blood April 08, 5.22 M/mm3 4.70-6.00 MAIN LAB , [address] Count 2019 [facility] [address] 12:03pm Red Blood June 5.10 M/mm3 4.70-6.00 MAIN LAB, [address] [place] [address] Count 2018 [facility] [place] [address] 1:32pm Hemoglobin April 08, 14.7 g/dL 14.0-18.0 MAIN LAB , [address] [place] [address] [place] [address] 12:03pm Hemoglobin June 14.2 g/dL 14.0-18.0 MAIN LAB, [address] [place] [address] 2018 [facility] [place] [address] 1:32pm Hematocrit April 08, 45.9 % 42-52 MAIN LAB , [address] [place] [address] [place] [address] 12:03pm Hematocrit June 43.7 % 42-52 MAIN LAB, [address] [place] [address] 2018 [facility] [place] [address] 1:32pm Mean June 85.7 fL 80.0-94.0 MAIN LAB, [address] [place] [address] Corpuscular 2018 [place] [address] Volume 1:32pm Mean April 08, 87.9 fL 80.0-94.0 MAIN LAB, [address] [place] [address] Corpuscular 2019 [facility] [address] Volume 12:03pm Mean April 08, 28.2 pg 27-31 MAIN LAB, [address] [place] [address] Corpuscular 2019 [place] [address] Hemoglobin 12:03pm Mean June 27.8 pg 27-31 MAIN LAB, [address] [place] [address] Corpuscular 2018 [place] [address] Hemoglobin 1:32pm Mean April 08, 32.0 g/dL 33-37 MAIN LAB, [address] [place] [address] Corpuscular 2019 [place] [address] Hemoglobin 12:03pm Concent Mean June 32.5 g/dL 33-37 MAIN LAB, [address] [place] [address] Corpuscular 2018 [place] [address] Hemoglobin 1:32pm Concent Red Cell April 08, 14.0 % 11.5-14.5 MAIN LAB, [address] [place] [address] 2019 [place] [address] Width 12:03pm Red Cell June 13.6 % 11.5-14.5 MAIN LAB, [address] [place] [address] 2018 [place] [address] Width 1:32pm Platelet Count April 08, 284 140-440 MAIN LAB, [address] [place] [address] 2019 1000/mm3 [place] [address] 12:03pm Platelet Count June 249 140-440 MAIN LAB, [address] [place] [address] 2018 1000/mm3 [place] [address] 1:32pm Mean Platelet June 10.4 fL 7.4-10.4 MAIN L AB, [address] [place] [address] [place] [address] 1:32pm Mean Platelet April 08, 10.4 fL 7.4-10.4 MAIN LAB, [address] [place] [address] [place] [address] 12:03pm Neutrophils June 59.3 % 40.0-72.0 MAIN LAB , [address] [place] [address] (%) (Auto) 2018 [place] [address] 1:32pm Neutrophils April 08, 60.7 % 40.0-72.0 MAIN LA B, [address] [place] [address] (%) (Auto) [address] [place] [address] 12:03pm Lymphocytes April 08, 28.7 % 17-45 MAIN LA B, [address] [place] [address] (%) (Auto) [address] [place] [address] 12:03pm Lymphocytes June 31.0 % 17-45 MAIN LAB , [address] [place] [address] (%) (Auto) 2018 [place] [address] 1:32pm Monocytes (%) June 6.6 % 3-11 MAIN L AB, [address] [place] [address] (Auto) 2018 [place] [address] 1:32pm Monocytes (%) April 08, 6.4 % 3-11 MAIN LAB, [address] [place] [address] (Auto) 2019 [place] [address] 12:03pm Eosinophils April 08, 2.7 % 0-3 MAIN LA B, [address] [place] [address] (%) (Auto) 2019 [facility] [place] [address] 12:03pm Eosinophils June 1.8 % 0-3 MAIN LAB , [address] [place] [address] (%) (Auto) 2018 [place] [address] 1:32pm Basophils (%) April 08, 0.7 % 0-1 MAIN LAB, [address] [place] [address] (Auto) 2019 [place] [address] 12:03pm Basophils (%) June 0.7 % 0-1 MAIN L AB, [address] [place] [address] (Auto) 2018 [place] [address] 1:32pm Immature June 0.6 % 0-1 MAIN LAB, [address] [place] [address] Granulocyte % 2018 [place] [address] (Auto) 1:32pm Immature April 08, 0.8 % 0-1 MAIN LAB, [address] [place] [address] Granulocyte % 2019 [place] [address] (Auto) 12:03pm Neutrophils # April 08, 5.60 1.4-6.5 MAIN LAB, [address] [place] [address] (Auto) 2019 1000/[place]3 [place] [address] 12:03pm Neutrophils # June 4.30 1.4-6.5 MAIN L AB, [address] [place] [address] (Auto) 2018 1000/[place]3 [place] [address] 1:32pm Lymphocytes # June 2.25 1.2-3.4 MAIN L AB, [address] [place] [address] (Auto) 2018 1000/[place]3 [place] [address] 1:32pm Lymphocytes # April 08, 2.65 1.2-3.4 MAIN LAB, [address] [place] [address] (Auto) 2019 1000/[place]3 [place] [address] 12:03pm Monocytes # June 0.48 0.0-0.8 MAIN LAB , [address] [place] [address] (Auto) 2018 1000/[place]3 [place] [address] 1:32pm Monocytes # April 08, 0.59 0.0-0.8 MAIN LA B, [address] [place] [address] (Auto) 2019 1000/[place]3 [place] [address] 12:03pm Eosinophils # June 0.13 0.0-0.7 MAIN L AB, [address] [place] [address] (Auto) 2018 1000/[place]3 [place] [address] 1:32pm Eosinophils # April 08, 0.25 0.0-0.7 MAIN LAB, [address] [place] [address] (Auto) 2019 1000/[place]3 [place] [address] 12:03pm Basophils # June 0.05 0.0-0.1 MAIN LAB , [address] [place] [address] (Auto) 2018 1000/[place]3 [place] [address] 1:32pm Basophils # April 08, 0.06 0.0-0.1 MAIN LA B, [address] [place] [address] (Auto) 2019 1000/mm3 [facility] [address] 12:03pm Absolute April 08, 0.1 0-1 MAIN LAB, [address] [place] [address] Immature 2019 [facility] [address] Granulocyte 12:03pm (auto Absolute October 0.0 0-1 MAIN LAB, [address] [place] [address] Immature 2018 [facility] [address] Granulocyte 1:32pm (auto Differential April 08, Automated MAIN L AB, [address] [place] [address] Method 2019 [facility] [address] 12:03pm Differential October Automated [facility] LA B, [address] [place] [address] Method 2018 [place] [address] 1:32pm Sodium Level June 137 mmol/L 137-145 MAIN L AB, [address] [place] [address] 2018 [place] [address] 1:32pm Potassium June 3.8 mmol/L 3.6-5.0 MAIN LAB, [address] [place] [address] 2018 [place] [address] 1:32pm Chloride Level June 104 mmol/L 98-107 MAIN LAB, [address] [place] [address] 2018 [place] [address] 1:32pm Carbon Dioxide June 23 mmol/L 22-30 MAIN LAB, [address] [place] [address] 2018 [place] [address] 1:32pm Anion Gap June 10 7-16 MAIN LAB, [address] [place] [address] 2018 [place] [address] 1:32pm Blood Urea June 12 mg/dL 8-26 MAIN LAB, [address] [place] [address] Nitrogen 2018 [place] [address] 1:32pm Creatinine June 0.82 mg/dL 0.66-1.25 MAIN LAB , [address] [place] [address] 2018 [place] [address] 1:32pm Glomerular June > 60 mL/min >60.0 MAIN LA B, [address] [place] [address] Filtration 2018 [place] [address] Rate Calc 1:32pm Glucose Level June 99 mg/dL 70-100 MAIN L AB, [address] [place] [address] 2018 . [place] [address] 1:32pm Calcium Level June 8.5 mg/dL 8.4-10.2 MAIN L AB, [address] [place] [address] [place] [address] 1:32pm Troponin I June < 0.012 0-0.034 Reference MAIN LAB, [address] [place] [address] 2018 ng/mL Range: [place] [address] 1:32pm <0.034 ng/mL AMI Cut-off 0.120 ng/mLTh e results of this assay can be falsely decreased in patients who consume Biotin. Diagnostic Imaging Reports Report Dictated Date/Time Dictated By Status Electrocardiogram June 25, 2019 1:07pm Ulises Young MD c ompleted [facility] EKG PATIENT NAME: YOLANDA FANG DATE OF [...] June 25, 2019 1:52pm Mario Gotti completed [facility] RADIOLOGY REPORT PATIENT NAME: YOLANDA FANG DATE [...] 2020 10:52am Tori Millan MD co mpleted [facility] ULTRASOUND REPORT PATIENT NAME: YOLANDA [...] 2020 11:17am Tori Millan MD co mpleted [facility] RADIOLOGY REPORT PATIENT NAME: YOLANDA FANG 15 DATE OF : 1975 ATTENDING/ER PHYSICIAN: Carolina perez [employer]OD F[employer]OR REFINISHER ER/ATTENDING PHYSICIAN: PRIMARY CARE PHYS: Out Town [...] 2020 11:18am Tori Millan MD co mpleted [facility] RADIOLOGY REPORT PATIENT NAME: YOLANDA FANG 15 DATE OF : 1975 ATTENDING/ER PHYSICIAN: Carolina perez [employer] REFINISHER ER/ATTENDING PHYSICIAN: PRIMARY CARE PHYS: Out [facility] ADMITTING PHYSICIAN: CONSULTING PHYSICIAN: PROCEDURE DATE: [...] 1. No acute osseous abnormalities. dd: 04/08/20 111 <Electronically signed by Tori hart MD in [place]> 04/08/20 1126 Radiology Report April 23, 2020 9:27am Tori Millan MD c ompleted [facility] ULTRASOUND REPORT PATIENT NAME: YOLANDA [...] Tori hart MD in [place]> 04/23/20 0931 Advance Directives Advance Directive Response Recorded Date/Time Does patient have an Advanced Directive? No June 25, 2019 1:44pm Do we have a copy on file here at [facility]? No O ctober 2018 1:44pm Pt has a Living Will? No June 25, 2019 1:44pm Do we have a copy on file here at [facility]? No O ctober 2018 1:44pm Pt has a Power of Bi Data Architect? No June 1:44pm Do we have a copy on file here at [facility]? No O ct2018 1:44pm Chief Complaint and Reason for Visit Chief Complaint Back Up TESTICLE PAIN FOLLOW UP US RT HIP PAIN; LBP TESTICULAR COMPLAINT New Patient Orchitis and epididymitis Reason for Visit Epididymo-orchitis Encounters Encounter Location(s) Arrival/Admit Date Discharge/Depart Date Provider(s) Departed [facility] June 25, 2019 June 25, 2019 [facility] 1:09pm 3:45pm Center-Emergency Department Departed [facility] April 08, 2020 April 08, 2020 [facility] 12:35am 1:22am Center-Emergency Department Departed [facility] April 08, 2020 April 08, 2020 [facility] 10:03am 12:39pm Center-Emergency Department Departed [facility] April 08, 2020 April 08, 2020 Manuel Aguirre [facility] 10:06am 10:07am SRIDEVI Figueroa [facility] Departed [facility] April 08, 2020 April 08, 2020 [facility] Emergency Medical 9:44pm 10:10pm Center-Emergency Department Departed [facility] April 09, 2020 April 09, 2020 Jerome Willoughby Physician/Prov Medical 8:23am 9:40am MD [facility] Departed [facility] April 23, 2020 April 23, 2020 Jerome younger [facility] 8:43am 8:44am MD Adi [facility] Recent Diagnosis Onset Date Epididymo-orchitis Assessments Diagnosis [...] Information available Insurance Providers Guarantor YOLANDA Tai FANG Address [address] [place] [address] Contact Info. Home Phone: Payer Policy Id Coverage Id Subscriber's Subscriber Id Effective E xpiration Name Date Date MEDICAID [place] [id number] YOLANDA FANG [id number] [place] S[place]F PAY Self N/A Plan of Treatment [...] Date Information Pcp Estelita Aguirre Work Phone: [address] [place] [address] Manuel Figueroa NP [place] [phone] Jerome Willoughby Work Phone: [facility] Urology MD Adi [facility] , [facility] [place] [address] Town Out Future Procedures Future procedure information is unavailable Future Medications Future medication information is unavailable Patient Instructions Epididymitis (DC) COVID 19 General Instructions- decrease the spread of coronavirus ([facility]) COVID 19 General Instructions- decrease the spread of coronavirus ([facility]) Social History Smoking Status Status Date of Observation Smokes tobacco daily (finding) April 09, 2020 8:34am Observation Status Observation Response Date of Response Alcohol Use No April 08, 2020 9:51 pm alcohol intake frequency holidays/special occasions only Mar 9:51pm Substance/Street Drug Use No April 08 0 9:51pm Substance Use Treatment No April 08, 2020 9:51pm Smoking Status Current every day smoker April 09, 2020 8:34am Assigned Sex Male Vital Signs Vital Reading Result Reference Range Collection Date/ Time Weight 190.96 kg June 25 1:13pm Body Temperature 97.4 [degF] 97.6-99.6 June 25, 019 1:13pm Heart Rate 98 /min 60-100 June 25 3:45pm Respiratory rate 20 /min -June 25, 2 019 3:45pm Oxygen saturation by Pulse 98 % 95-100 Octob er 2018 3:45pm oximetry BP Systolic 130 mm[Hg] [...]
--- OUTSIDE RECORDS SUMMARY | 2022-03-21 09:33 | XMS_ITS | Continuity of Care Document ---
:1975 Author Organization [facility] Address [address] [place] [address] Phone Care Team Providers Name Role Phone [...] 08, 9.22 4.8-10.8 MAIN LA B, [address] [facility] 2019 1000/mm3 [facility] [address] 12:03pm White Blood June 7.25 4.8-10.8 MAIN LAB , [address] [place] [address] 2018 1000/mm3 [facility] [place] [address] 1:32pm Red Blood April 08, 5.22 M/mm3 4.70-6.00 MAIN LAB , [address] [place] [address] 2019 [place] [address] 12:03pm Red Blood June 5.10 M/mm3 4.70-6.00 MAIN LAB, [address] [place] [address] 2018 [facility] [place] [address] 1:32pm Hemoglobin April 08, 14.7 g/dL 14.0-18.0 MAIN LAB , [address] [place] [address] 12:03pm Hemoglobin June 14.2 g/dL 14.0-18.0 MAIN LAB, [address] [place] [address] 2018 [facility] [place] [address] 1:32pm Hematocrit April 08, 45.9 % 42-52 MAIN LAB , [address] [place] [address] [address] [place] [address] 12:03pm Hematocrit June 43.7 % 42-52 MAIN LAB, [address] [place] [address] 2018 [facility] [place] [address] 1:32pm Mean April 08, 87.9 fL 80.0-94.0 MAIN LAB, [address] [place] [address] Corpuscular 2019 [place] [address] Volume 12:03pm Mean June 85.7 fL 80.0-94.0 MAIN LAB, [address] [place] [address] Corpuscular 2018 [place] [address] Volume 1:32pm Mean April 08, 28.2 pg 27-31 MAIN LAB, [address] [place] [address] Corpuscular 2019 [place] [address] Hemoglobin 12:03pm Mean June 27.8 pg 27-31 MAIN LAB, [address] [place] [address] Corpuscular 2018 [place] [address] Hemoglobin 1:32pm Mean June 32.5 g/dL 33-37 MAIN LAB, [address] [place] [address] Corpuscular 2018 [place] [address] Hemoglobin 1:32pm Concent Mean April 08, 32.0 g/dL 33-37 MAIN LAB, [address] [place] [address] [place] [address] Hemoglobin 12:03pm Concent Red Cell June 13.6 % 11.5-14.5 MAIN LAB, [address] [place] [address] [place] [address] Width 1:32pm Red Cell April 08, 14.0 % 11.5-14.5 MAIN LAB, [address] [place] [address] [place] [address] Width 12:03pm Platelet Count April 08, 284 140-440 MAIN LAB, [address] [place] [address] 2019 1000/mm3 [place] [address] 12:03pm Platelet Count June 249 140-440 MAIN LAB, [address] [place] [address] 2018 1000/mm3 [place] [address] 1:32pm Mean Platelet June 10.4 fL 7.4-10.4 MAIN L AB, [address] [place] [address] [place] [address] 1:32pm Mean Platelet April 08, 10.4 fL 7.4-10.4 MAIN LAB, [address] [place] [address] [place] [address] 12:03pm Neutrophils June 59.3 % 40.0-72.0 MAIN LAB , [address] [place] [address] (%) (Auto) [address] [place] [address] 1:32pm Neutrophils April 08, 60.7 % 40.0-72.0 MAIN LA B, [address] [place] [address] (%) (Auto) [address] [place] [address] 12:03pm Lymphocytes April 08, 28.7 % 17-45 MAIN LA B, [address] [place] [address] (%) (Auto) [address] [place] [address] 12:03pm Lymphocytes June 31.0 % 17-45 MAIN LAB , [address] [place] [address] (%) (Auto) [address] [place] [address] 1:32pm Monocytes (%) April 08, 6.4 % 3-11 MAIN LAB, [address] [place] [address] (Auto) [address] [place] [address] 12:03pm Monocytes (%) June 6.6 % 3-11 MAIN L AB, [address] [place] [address] (Auto) 2018 [place] [address] 1:32pm Eosinophils June 1.8 % 0-3 MAIN LAB , [address] [place] [address] (%) (Auto) [address] [place] [address] 1:32pm Eosinophils April 08, 2.7 % 0-3 MAIN LA B, [address] [place] [address] (%) (Auto) [address] [place] [address] 12:03pm Basophils (%) April 08, 0.7 % 0-1 MAIN LAB, [address] [place] [address] (Auto) [address] [place] [address] 12:03pm Basophils (%) October 0.7 % 0-1 MAIN L AB, [address] [place] [address] (Auto) 2018 [place] [address] 1:32pm Immature April 08, 0.8 % 0-1 MAIN LAB, [address] [place] [address] Granulocyte % 2019 [place] [address] (Auto) 12:03pm Immature October 0.6 % 0-1 MAIN LAB, [address] [place] [address] Granulocyte % 2018 [place] [address] (Auto) 1:32pm Neutrophils # June 4.30 1.4-6.5 MAIN L AB, [address] [place] [address] (Auto) 2018 1000/[place]3 [place] [address] 1:32pm Neutrophils # April 08, 5.60 1.4-6.5 MAIN LAB, [address] [place] [address] (Auto) 2019 1000/[place]3 [place] [address] 12:03pm Lymphocytes # April 08, 2.65 1.2-3.4 MAIN LAB, [address] [place] [address] (Auto) 2019 1000/[place]3 [place] [address] 12:03pm Lymphocytes # June 2.25 1.2-3.4 MAIN L AB, [address] [place] [address] (Auto) 2018 1000/[place]3 [place] [address] 1:32pm Monocytes # June 0.48 0.0-0.8 MAIN LAB , [address] [place] [address] (Auto) 2018 1000/[place]3 [place] [address] 1:32pm Monocytes # April 08, 0.59 0.0-0.8 MAIN LA B, [address] [place] [address] (Auto) 2019 1000/[place]3 [place] [address] 12:03pm Eosinophils # June 0.13 0.0-0.7 MAIN L AB, [address] [place] [address] (Auto) 2018 1000/[place] [address] 1:32pm Eosinophils # April 08, 0.25 0.0-0.7 MAIN LAB, [address] [place] [address] (Auto) 2019 1000/[place]3 [place] [address] 12:03pm Basophils # June 0.05 0.0-0.1 MAIN LAB , [address] [place] [address] (Auto) 2018 1000/[place]3 [place] [address] 1:32pm Basophils # April 08, 0.06 0.0-0.1 MAIN LA B, [address] [place] [address] (Auto) 2019 1000/[place]3 [place] [address] 12:03pm Absolute April 08, 0.1 0-1 MAIN LAB, [address] [place] [address] Immature 2019 [place] [address] Granulocyte 12:03pm (auto Absolute June 0.0 0-1 MAIN LAB, [address] [place] [address] [place] [address] Granulocyte 1:32pm (auto Differential June Automated MAIN LA B, [address] [place] [address] [place] [address] 1:32pm Differential April 08, Automated MAIN L AB, [address] [place] [address] Method 2019 [place] [address] 12:03pm Sodium Level June 137 mmol/L 137-145 MAIN L AB, [address] [place] [address] [place] [address] 1:32pm Potassium June 3.8 mmol/L 3.6-5.0 MAIN LAB, [address] [place] [address] [place] [address] 1:32pm Chloride Level June 104 mmol/L 98-107 MAIN LAB, [address] [place] [address] [place] [address] 1:32pm Carbon Dioxide June 23 mmol/L 22-30 MAIN LAB, [address] [place] [address] [place] [address] 1:32pm Anion Gap June 10 7-16 MAIN LAB, [address] [place] [address] [place] [address] 1:32pm Blood Urea June 12 mg/dL 8-26 MAIN LAB, [address] [place] [address] [place] [address] 1:32pm Creatinine June 0.82 mg/dL 0.66-1.25 MAIN LAB , [address] [place] [address] [place] [address] 1:32pm Glomerular June > 60 mL/min >60.0 MAIN LA B, [address] [facility] [address] [place] [address] Rate Calc 1:32pm Glucose Level June 99 mg/dL 70-100 MAIN L AB, [address] [place] [address] [place] [address] 1:32pm Calcium Level June 8.5 mg/dL 8.4-10.2 MAIN L AB, [address] [place] [address] [place] [address] 1:32pm Troponin I June < 0.012 0-0.034 Reference MAIN LAB, [address] [place] [address] 2018 ng/mL Range: [place] [address] 1:32pm <0.034 ng/mL AMI Cut-off 0.120 ng/mLTh e results of this assay can be falsely decreased in patients who consume Biotin. Diagnostic Imaging Reports Report Dictated Date/Time Dictated By Status Electrocardiogram June 25, 2019 1:07pm Ulises [facility] EKG PATIENT NAME: YOLANDA FANG [...] June 25, 2019 1:52pm Mario Gotti completed [facility] RADIOLOGY REPORT PATIENT NAME: YOLANDA FANG DATE OF : 1975 ATTENDING/ER PHYSICIAN: ER/ATTENDING PHYSICIAN: Mario Nunez PRIMARY CARE PHYS: No Pcp ADMITTING PHYSICIAN: CONSULTING PHYSICIAN: PROCEDURE DATE: 06/25/19 REPORT STATUS: Signed DICTATING PHYSICIAN: Jaey Scott MD REASON FOR EXAM: chest pain [...] 2020 10:52am Tori Millan MD co mpleted [facility] ULTRASOUND REPORT PATIENT NAME: YOLANDA [...] 2020 11:17am Tori Millan MD co mpleted [facility] RADIOLOGY REPORT PATIENT NAME: YOLANDA FANG 15 DATE OF : 1975 ATTENDING/ER PHYSICIAN: Carolina perez [employer]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 No O ctober 2018 1:44pm Pt has a Living Will? No June 25, 2019 1:44pm Do we have a copy on file here at [facility]? No O ctober 2018 1:44pm Pt has a Power of Productivity Engineer? No June 1:44pm Do we have a copy on file here at [facility]? No O ctober 2018 1:44pm Chief Complaint and Reason for Visit Chief Complaint Back Up TESTICLE PAIN FOLLOW UP US RT HIP PAIN; LBP Encounters Encounter Location(s) Arrival/Admit Date Discharge/Depart Provi ulysses(s) Date Departed [facility] June 25, 2019 June 25, 2019 nul l Emergency Medical 1:09pm 3:45pm Center-Emergency Department Departed [facility] April 08, 2020 April 08, 2020 [facility] Emergency Medical 12:35am 1:22am Center-Emergency Department Departed [facility] April 08, 2020 April 08, 2020 null Emergency Medical 10:03am 12:39pm Center-Emergency Department Registered [facility] April 08, 2020 [facility] 10:06am SRIDEVI Figueroa [facility] Assessments No Assessments Information Available [...] available Insurance Providers Guarantor YOLANDA FANG Address [address] [place] [id number] Contact Info. Home Phone: Payer Policy Id Coverage Id Subscriber's Subscriber Id Effective E xpiration Name Date Date [place]ICAID OF [id number] [place] [employer] PA[employer] Self N/A Plan of Treatment Future Tests Future scheduled test information is unavailable Pending Tests Pending diagnostic test information is unavailable Future Visits Future appointment information is unavailable Referrals to Other Providers Reason for Referral Start Provider Provider Contact Provider Address Referral Date Information Pcp Estelita Willoughby Work Phone: [facility] Urology MD Adi [address] , [address] [facility] [address] [place] Future Procedures Future procedure information is unavailable Future Medications Future medication information is unavailable Patient Instructions Epididymitis (NM) COVID 19 General Instructions- decrease the spread of coronavirus ([facility]) COVID 19 General Instructions- decrease the spread of coronavirus ([facility]) Social History Smoking Status Status Date of [...]
--- OUTSIDE RECORDS SUMMARY | 2022-03-21 09:33 | XMS_ITS | Continuity of Care Document ---
:[address] [facility] Address [address] [place] [address] Phone Care Team Providers Name Role Phone PCP, of Choice Primary Care Provider Unavailable Out of Town, Provider Primary Care Provider Unavailable Carolina Aguirre Attending Provider Carolina Aguirre Primary Care Provider Kwaku Joshi Attending Provider Carmen Bañuelos Attending Provider Allergies, Adverse Reactions, Alerts Allergen Type Severity Reaction Last Updated Verified Status cephalexin Allergy unknown April 09, 2020 8:29am Yes Active Medications Medication Status Dose Units Route Directions Qty Days Start End Ins tructions Date Date Oxycodone Active 5 MG PO TWICE A DAY April 09, 2020 8:28am Gabapentin Active 300 MG PO THREE TIMES March A DAY 2019 12:45a m Ibuprofen Active 600 MG PO THREE TIMES March A DAY 2019 12:45a m Levofloxacin Active [...] 2019 8:35am Urine Specific April 09, 1.025 Kittrell (Manual) 2019 8:35am POC Urine RBC April 09, Trace 2019 Intact 8:35am Urine pH (Manual) April 09, 5.5 2019 8:35am POC Urine Protein April 09, Negative Confirmation 2019 8:35am Urine April 09, 0.2 Urobilinogen 2020 (Manual) 8:35am Urine Nitrite April 09, Negative (Manual) 2019 8:35am Urine Leukocyte April 09, Negative Esterase (Manual) 2019 8:35am White Blood Count June 7. 4.8-10.8 [place] [facility], [address] [facility] 2018 1000/mm3 [facility] [address] 1:32pm White Blood Count June 11.14 4.8-10.8 [place] IN LAB, [address] [place] [address] 2019 1000/mm3 [facility] [address] 12:25am White Blood Count April 08, 9.22 4.8-10.8 M AIN LAB, [address] [place] [address] 2019 1000/mm3 [facility] 85240 12:03pm Red Blood Count June 5.10 M/mm3 4.70-6.00 [facility] N [facility], [address] [place] [address] 2018 [facility] [address] 1:32pm Red Blood Count June 5.37 M/mm3 4.70-6.00 [facility], [address] [place] [address] 2019 [facility] 36661 12:25am Red Blood Count April 08, 5.22 M/mm3 4.70-6.00 MA IN LAB, [address] [place] [address] 2019 [facility] 94828 12:03pm Hemoglobin June 14.2 g/dL 14.0-18.0 MAIN LAB, [address] [place] [address] 2018 [facility] 21705 1:32pm Hemoglobin June 15.1 g/dL 14.0-18.0 MAIN LAB, [address] [place] [address] 2019 [facility] 10015 12:25am Hemoglobin April 08, 14.7 g/dL 14.0-18.0 MAIN LAB , [address] [place] [address] 2019 [facility] [address]2207 12:03pm Hematocrit June 43.7 % 42-52 MAIN LAB, [address] [place] [address] 2018 [facility] [place] [address] 1:32pm Hematocrit June 46.7 % 42-52 MAIN LAB, [address] [place] [address] 2019 [facility] 19988 12:25am Hematocrit April 08, 45.9 % 42-52 MAIN LAB , [address] [place] [address] 2019 [facility] 37096 12:03pm Mean Corpuscular June 85.7 fL 80.0-94.0 [facility], [address] [place] [address] 2018 [facility] [place] [address] 1:32pm Mean Corpuscular June 87.0 fL 80.0-94.0 [facility], [address] [place] [address] [address] [place] [address] 12:25am Mean Corpuscular April 08, 87.9 fL 80.0-94.0 MA IN LAB, [address] [place] [address] Volume [address] [place] [address] 12:03pm Mean Corpuscular June 27.8 pg 27-31 [facility], [address] [place] [address] [place] [address] 1:32pm Mean Corpuscular June 28.1 pg 27-31 [facility], [address] [place] [address] [place] [address] 12:25am Mean Corpuscular April 08, 28.2 pg 27-31 MA IN LAB, [address] [place] [address] [place] [address] 12:03pm Mean Corpuscular June 32.5 g/dL 33-37 [facility], [address] [place] [address] [place] [address] Concent 1:32pm Mean Corpuscular June 32.3 g/dL 33-37 [facility], [address] [place] [address] [place] [address] Concent 12:25am Mean Corpuscular April 08, 32.0 g/dL 33-37 MA IN LAB, [address] [place] [address] [place] [address] Concent 12:03pm Red Cell June 13.6 % 11.5-14.5 MAIN LAB, [address] [place] [address] [place] [address] Width 1:32pm Red Cell June 14.1 % 11.5-14.5 MAIN LAB, [address] [place] [address] [place] [address] Width 12:25am Red Cell April 08, 14.0 % 11.5-14.5 MAIN LAB, [address] [place] [address] [facility] [place] [address] Width 12:03pm Platelet Count June 249 140-440 MAIN LAB, [address] [place] [address] 2018 1000/[place]3 [place] [address] 1:32pm Platelet Count June 276 140-440 MAIN LAB, [address] [place] [address] 2019 1000/mm3 [place] [address] 12:25am Platelet Count April 08, 284 140-440 MAIN LAB, [address] [place] [address] 2019 1000/mm3 [place] [address] 12:03pm Mean Platelet June 10.4 fL 7.4-10.4 MAIN L AB, [address] [place] [address] [place] [address] 1:32pm Mean Platelet June 10.3 fL 7.4-10.4 MAIN L AB, [address] [place] [address] Volume [address] [place] [address] 12:25am Mean Platelet April 08, 10.4 fL 7.4-10.4 MAIN LAB, [address] [place] [address] [address] [place] [address] 12:03pm Neutrophils (%) June 59.3 % 40.0-72.0 MAIN LAB, [address] [place] [address] (Auto) 2018 [place] [address] 1:32pm Neutrophils (%) June 70.9 % 40.0-72.0 MAIN LAB, [address] [place] [address] (Auto) [address] [place] [address] 12:25am Neutrophils (%) April 08, 60.7 % 40.0-72.0 LED[facility] N [facility], [address] [place] [address] (Auto) [address] [place] [address] 12:03pm Lymphocytes (%) June 31.0 % 17-45 MAIN LAB, [address] [place] [address] (Auto) [address] [place] [address] 1:32pm Lymphocytes (%) June 20.0 % 17-45 MAIN LAB, [address] [place] [address] (Auto) [address] [place] [address] 12:25am Lymphocytes (%) April 08, 28.7 % 17-45 [facility] N [facility], [address] [place] [address] (Auto) [address] [place] [address] 12:03pm Monocytes (%) June 6.6 % 3-11 MAIN L AB, [address] [place] [address] (Auto) 2018 [place] [address] 1:32pm Monocytes (%) June 6.3 % 3-11 MAIN L AB, [address] [place] [address] (Auto) [address] [place] [address] 12:25am Monocytes (%) April 08, 6.4 % 3-11 MAIN LAB, [address] [place] [address] (Auto) [address] [place] [address] 12:03pm Eosinophils (%) June 1.8 % 0-3 MAIN LAB, [address] [place] [address] (Auto) 2018 [place] [address] 1:32pm Eosinophils (%) June 1.6 % 0-3 MAIN LAB, [address] [place] [address] (Auto) [address] [place] [address] 12:25am Eosinophils (%) April 08, 2.7 % 0-3 LEDA N LAB, [address] [place] [address] (Auto) [address] [place] [address] 12:03pm Basophils (%) June 0.7 % 0-1 MAIN L AB, [address] [place] [address] (Auto) 2018 [place] [address] 1:32pm Basophils (%) June 0.7 % 0-1 MAIN L AB, [address] [place] [address] (Auto) [address] [place] [address] 12:25am Basophils (%) April 08, 0.7 % 0-1 MAIN LAB, [address] [place] [address] (Auto) [address] [place] [address] 12:03pm Immature June 0.6 % 0-1 MAIN LAB, [address] [place] [address] Granulocyte % 2018 [facility] [address] (Auto) 1:32pm Immature June 0.5 % 0-1 MAIN LAB, [address] [place] [address] Granulocyte % 2019 [place] [address] (Auto) 12:25am Immature April 08, 0.8 % 0-1 MAIN LAB, [address] [place] [address] Granulocyte % 2019 [place] [place] [address] (Auto) 12:03pm Neutrophils # June 4.30 1.4-6.5 MAIN L AB, [address] [place] [address] (Auto) 2018 1000/[place]3 [place] [address] 1:32pm Neutrophils # June 7.89 1.4-6.5 MAIN L AB, [address] [place] [address] (Auto) 2019 1000/mm3 [place] [address] 12:25am Neutrophils # April 08, 5.60 1.4-6.5 MAIN LAB, [address] [place] [address] (Auto) 2019 1000/mm3 [place] [address] 12:03pm Lymphocytes # June 2.25 1.2-3.4 MAIN L AB, [address] [place] [address] (Auto) 2018 1000/[place]3 [place] [address] 1:32pm Lymphocytes # June 2.23 1.2-3.4 MAIN L AB, [address] [place] [address] (Auto) 2019 1000/mm3 [place] [address] 12:25am Lymphocytes # April 08, 2.65 1.2-3.4 MAIN LAB, [address] [place] [address] (Auto) 2019 1000/mm3 [place] [address] 12:03pm Monocytes # June 0.48 0.0-0.8 MAIN LAB , [address] [place] [address] (Auto) 2018 1000/[place]3 [place] [address] 1:32pm Monocytes # June 0.70 0.0-0.8 MAIN LAB , [address] [place] [address] (Auto) 2019 1000/mm3 [place] [address] 12:25am Monocytes # April 08, 0.59 0.0-0.8 MAIN LA B, [address] [place] [address] (Auto) 2019 1000/mm3 [place] [address] 12:03pm Eosinophils # June 0.13 0.0-0.7 MAIN L AB, [address] [place] [address] (Auto) 2018 1000/[place]3 [place] [address] 1:32pm Eosinophils # June 0.18 0.0-0.7 MAIN L AB, [address] [place] [address] (Auto) 2019 1000/mm3 [place] [address] 12:25am Eosinophils # April 08, 0.25 0.0-0.7 MAIN LAB, [address] [place] [address] (Auto) 2019 1000/mm3 [place] [address] 12:03pm Basophils # June 0.05 0.0-0.1 MAIN LAB , [address] [place] [address] (Auto) 2018 1000/[place]3 [place] [address] 1:32pm Basophils # June 0.08 0.0-0.1 MAIN LAB , [address] [place] [address] (Auto) 2019 1000/mm3 [place] [address] 12:25am Basophils # April 08, 0.06 0.0-0.1 MAIN LA B, [address] [place] [address] (Auto) 2019 1000/mm3 [place] [address] 12:03pm Absolute Immature October 0.0 0-1 MA IN LAB, [address] [place] [address] Granulocyte (auto [address] [place] [address] 1:32pm Absolute Immature October 0.1 0-1 MA IN LAB, [address] [place] [address] Granulocyte (auto 2019 [place] [address] 12:25am Absolute Immature April 08, 0.1 0-1 M AIN LAB, [address] [place] [address] Granulocyte (auto 2019 [facility] [place] [address] 12:03pm Differential October Automated MAIN LA B, [address] [place] [address] [place] [address] 1:32pm Differential October Automated MAIN LA B, [address] [place] [address] Method [address] [place] [address] 12:25am Differential April 08, Automated MAIN L AB, [address] [place] [address] Method [address] [place] [address] 12:03pm Sodium Level June 137 mmol/L 137-145 MAIN L AB, [address] [place] [address] [place] [address] 1:32pm Sodium Level June 138 mmol/L 137-145 MAIN L AB, [address] [place] [address] [address] [place] [address] 12:25am Potassium Level June 3.8 mmol/L 3.6-5.0 [facility] N [facility], [address] [place] [address] [place] [address] 1:32pm Potassium Level June 3.6 mmol/L 3.6-5.0 LED[facility] N LAB, [address] [place] [address] [address] [place] [address] 12:25am Chloride Level June 104 mmol/L 98-107 MAIN LAB, [address] [place] [address] [place] [address] 1:32pm Chloride Level June 103 mmol/L 98-107 MAIN LAB, [address] [place] [address] [address] [place] [address] 12:25am Carbon Dioxide June 23 mmol/L MAIN LAB, [address] [place] [address] [place] [address] 1:32pm Carbon Dioxide June 29 mmol/L MAIN LAB, [address] [place] [address] [address] [place] [address] 12:25am Anion Gap June 1903-25 MAIN LAB, [address] [place] [address] [place] [address] 1:32pm Anion Gap October 6 7-16 MAIN LAB, [address] [place] [address] 2019 [place] [address] 12:25am Blood Urea June 12 mg/dL 05-05 MAIN LAB, [address] [place] [address] Nitrogen 2018 [place] [address] 1:32pm Blood Urea June 13 mg/dL 05-05 MAIN LAB, [address] [place] [address] Nitrogen 2019 [place] [address] 12:25am Creatinine June 0.82 mg/dL 0.66-1.25 MAIN LAB , [address] [place] [address] 2018 [facility] [address] 1:32pm Creatinine June 0.97 mg/dL 0.66-1.25 MAIN LAB , [address] [place] [address] 2019 [place] [address] 12:25am Glomerular October > 60 >60.0 MAIN LAB, [address] [place] [address] Filtration Rate 2018 mL/min [place] [address] Calc 1:32pm Glomerular October > 60 >60.0 MAIN LAB, [address] [place] [address] Filtration Rate 2019 mL/min [place] [address] Calc 12:25am Glucose Level June 99 mg/dL 70-100 MAIN L AB, [address] [place] [address] 2018 [place] [address] 1:32pm Glucose Level June 125 mg/dL 70-100 MAIN L AB, [address] [place] [address] 2019 [place] [address] 12:25am Calcium Level June 8.5 mg/dL 8.4-10.2 MAIN L AB, [address] [place] [address] 2018 [place] [address] 1:32pm Calcium Level June 9.1 mg/dL 8.4-10.2 MAIN L AB, [address] [place] [address] 2019 [place] [address] 12:25am Calcium Adjusted June 9.3 mg/dL 8.4-10.2 LED[facility] N LAB, [address] [place] [address] for Albumin 2019 [place] [address] 12:25am Total Bilirubin June 0.3 mg/dL 0.2-1.3 MAIN LAB, [address] [place] [address] 2019 [place] [address] 12:25am Aspartate Amino October 34 U/L 17-59 MAIN LAB, [address] [place] [address] Transf (AST/SGOT) 2019 [place] [address] 12:25am Alanine June 48 U/L <50 As of MAIN LAB, [address] [place] [address] Aminotransferase 201901/09/20, [place] [address] (ALT/SGPT) 12:25am Reference Range for ALT/SGPT for adult patients has been updated. The Reference Range for ALT/SGPT has not been established for patients <18 years of age. Troponin I June < 0.012 0-0.034 Reference MAIN LAB, [address] [place] [address] 2018 ng/mL Range: [place] [address] 1:32pm <0.034 ng/mL AMI Cut-off 0.120 ng/mLThe results of this assay can be falsely decreased in patients who consume Biotin. Troponin I June < 0.012 0-0.034 Reference MAIN LAB, [address] [place] [address] 2019 ng/mL Range: [place] [address] 12:25am <0.034 ng/mL AMI Cut-off 0.120 ng/mLThe results of this assay can be falsely decreased in patients who consume Biotin. Total Protein June 7.4 g/dL 6.3-8.2 MAIN L AB, [address] [place] [address] [address] [place] [address] 12:25am Albumin June 4.1 g/dL 3.5-5.0 MAIN LAB, [address] [place] [address] [address] [place] [address] 12:25am Alkaline June 92 U/L 38-126 MAIN LAB, [address] [place] [address] [place] [address] 12:25am Diagnostic Imaging Reports Report Dictated Date/Time Dictated By Status Electrocardiogram June 25, 2019 1:07pm Ulises Young MD c ompleted [facility] EKG PATIENT NAME: YOLANDA FANG DATE [...] June 25, 2019 1:52pm Mario Gotti completed [facility] RADIOLOGY REPORT PATIENT NAME: YOLANDA [...] 2020 10:52am Tori Millan MD co mpleted [facility] ULTRASOUND REPORT PATIENT NAME: YOLANDA [...] 2020 11:17am Tori Millan MD co mpleted [facility] RADIOLOGY REPORT PATIENT NAME: YOLANDA [...] 2020 11:18am Tori Millan MD co mpleted [facility] RADIOLOGY REPORT PATIENT NAME: YOLANDA [...] 2020 9:27am Tori Millan MD c ompleted [facility] ULTRASOUND REPORT PATIENT NAME: YOLANDA [...] signed by Tori hart MD in OV> 04/23/20930 Radiology Report June 04, 2020 2:34pm Jaye Scott MD completed [facility] ULTRASOUND REPORT PATIENT NAME: YOLANDA [...] 10, 2020 11:49pm Roscoe Guerrero MD comp [facility] EKG PATIENT NAME: YOLANDA FANG 15 DATE OF : 1975 ATTENDING PHYSICIAN: PRIMARY CARE PHYS: Carolina Aguirre WAREHOUSE RECORD CLERK DICTATING PHYSICIAN: Roscoe Guerrero MD REPORT STATUS: [...] [facility] [place]? No O ctober 2018 1:44pm Pt has a Living Will? No June 25, 2019 1:44pm Do we have a copy on file here at [facility] [place]? No O ctober 2018 1:44pm Pt has a Power of First [place]? No June 1:44pm Do we have a copy on file here at [facility] [place]? No O ctober 2018 1:44pm Chief Complaint and Reason for Visit Chief Complaint Back Up TESTICLE PAIN FOLLOW UP US RT HIP PAIN; LBP TESTICULAR COMPLAINT New Patient Orchitis and epididymitis Orchitis and epididymitis Chest Pain Other forms of dyspnea Reason for Visit Epididymo-orchitis Encounters Encounter Location(s) Arrival/Admit Discharge/Depart Provider(s ) Date Date Departed [facility] June 25, June 25, 2019 [facility] Emergency Medical 2019 1:09pm 3:45pm Center-Emergency Department Departed [facility] April 08, 2020 April 08, 2020 [facility] Emergency Medical 12:35am 1:22am Center-Emergency Department Departed [facility] April 08, 2020 April 08, 2020 [facility] Emergency Medical 10:03am 12:39pm Center-Emergency Department Departed [facility] April 08, 2020 April 08, 2020 Manuel Fig[facility] 10:06am 10:07am , SRIDEVI [facility] Departed [facility] April 08, 2020 April 08, 2020 [facility] Emergency Medical 9:44pm 10:10pm Center-Emergency Department Departed [facility] April 09, 2020 April 09, 2020 Jerome Joshi Physician/Prov Medical 8:23am 9:40am MD ider Office [facility] Visit afternoon babysitter Services Departed [facility] April 23, 2020 April 23, 2020 Jerome younger [facility] 8:43am 8:44am MD [facility] Departed [facility] June 04June 04, 2020 Jerome cordova [facility] 2019 2:17pm 2:18pm MD [facility] Departed [facility] June 10, 2020 June 11, 2020 [facility] Emergency Medical 11:46pm 1:27am Center-Emergency Department Departed [facility] June 18, 2020 June 18, 2020 CARLOTTA Morales [facility] 12:10pm 12:11pm Malick cazares [facility] Recent Diagnosis Onset Date Epididymo-orchitis Assessments [...] available Insurance Providers Guarantor YOLANDA FANG Address [address] [place] [id number] Contact Info. Home Phone: Payer Policy Id Coverage Id Subscriber's Subscriber Id Effective E xpiration Name Date Date [place]ICA[place] [id number] YOLANDA FANG [id number] [place] PAY Self N/A Plan of Treatment [...] Date Information Pcp Estelita Aguirre Work Phone: [phone] sanjeev Figueroa NP [facility] [employer] [id number] Manuel Aguirre Work Phone: [phone] sanjeev Figueroa NP [employer] [id number] Jerome Willoughby Work Phone: [facility] [place] Urology MD Adi [facility] , [facility] [place] [address] Town Out Future Procedures Future procedure information [...] 1:19am Substance/Street Drug Use No June 11 020 1:19am Substance Use Treatment No June 11 [...] 09, 2020 8:30am Respiratory rate 20 /min 12-April 09, 2020 8:30am BP Systolic 128 mm[Hg] [...]
--- OUTSIDE RECORDS SUMMARY | 2022-03-21 09:33 | XMS_ITS | Continuity of Care Document ---
:1975 Author Organization [facility] Address [address] [place] [address] Phone Care Team Providers Name Role Phone [...] PO THREE TIMES March A DAY 2019 11:45p m Ibuprofen Active 600 MG PO THREE TIMES Tonya A DAY , 2020 11:45p m Levofloxacin Discontin 750 MG PO DAILY March ued 2019 12:03a 1:44pm m Problems [...] 2019 7:35am Urine Specific April 09, 1.025 Copen (Manual) 2019 7:35am POC Urine RBC April 09, Trace 2019 Intact 7:35am Urine pH (Manual) April 09, 5.5 2019 7:35am POC Urine Protein April 09, Negative Confirmation 2019 7:35am Urine April 09, 0.2 Urobilinogen 2019 (Manual) 7:35am Urine Nitrite April 09, Negative (Manual) 2019 7:35am Urine Leukocyte April 09, Negative Esterase (Manual) 2019 7:35am White Blood Count August 4.8-10.8 [place] IN LAB, [address] [facility] 2019 1000/mm3 [facility] 60713 11:01am White Blood Count October 11.14 4.8-10.8 [place] IN LAB, [address] [place] [address] 2019 1000/mm3 [facility] 91098 11:25pm White Blood Count April 08, 9.22 4.8-10.8 M AIN LAB, [address] [place] [address] 2019 1000/mm3 [facility] 15333 11:03am Red Blood Count August 5.37 M/mm3 4.70-6.00 LEDA N LAB, [address] [place] [address] 2019 [facility] 34912 11:01am Red Blood Count June 5.37 M/mm3 4.70-6.00 LEDA N LAB, [address] [place] [address] 2019 [facility] 20578 11:25pm Red Blood Count April 08, 5.22 M/mm3 4.70-6.00 MA IN LAB, [address] [place] [address] 2019 [facility] 48605 11:03am Hemoglobin August 15.1 g/dL 14.0-18.0 MAIN LAB, [address] [place] [address] 2019 [facility] 64608 11:01am Hemoglobin June 15.1 g/dL 14.0-18.0 MAIN LAB, [address] [place] [address] 2019 [facility] 12058 11:25pm Hemoglobin April 08, 14.7 g/dL 14.0-18.0 MAIN LAB , [address] [place] [address] 2019 [facility] 07511 11:03am Hematocrit August 47.3 % 42-52 MAIN LAB, [address] [place] [address] 2019 [facility] 87703 11:01am Hematocrit June 46.7 % 42-52 MAIN LAB, [address] [place] [address] 2019 [facility] 09197 11:25pm Hematocrit April 08, 45.9 % 42-52 MAIN LAB , [address] [place] [address] 2019 [facility] 05518 11:03am Mean Corpuscular August 88.1 fL 80.0-94.0 LEDA N LAB, [address] [place] [address] 2019 [facility] 97870 11:01am Mean Corpuscular June 87.0 fL 80.0-94.0 LEDA N LAB, [address] [place] [address] 2019 [facility] 82029 11:25pm Mean Corpuscular April 08, 87.9 fL 80.0-94.0 [place] IN LAB, [address] [facility] Volume [address] [place] [address] 11:03am Mean Corpuscular August 28.1 pg 27-31 LEDA N LAB, [address] [facility] Hemoglobin [address] [place] [address] 11:01am Mean Corpuscular June 28.1 pg 27-31 LEDA N LAB, [address] [place] [address] [place] [address] 11:25pm Mean Corpuscular April 08, 28.2 pg 27-31 [place] IN LAB, [address] [facility] Hemoglobin [address] [place] [address] 11:03am Mean Corpuscular August 31.9 g/dL 33-37 LEDA N LAB, [address] [place] [address] [place] [address] Concent 11:01am Mean Corpuscular June 32.3 g/dL 33-37 LEDA N LAB, [address] [place] [address] [place] [address] Concent 11:25pm Mean Corpuscular April 08, 32.0 g/dL 33-37 MA IN LAB, [address] [place] [address] [place] [address] Concent 11:03am Red Cell August 14.0 % 11.5-14.5 MAIN LAB, [address] [place] [address] [place] [address] Width 11:01am Red Cell June 14.1 % 11.5-14.5 MAIN LAB, [address] [place] [address] [place] [address] Width 11:25pm Red Cell April 08, 14.0 % 11.5-14.5 MAIN LAB, [address] [facility] Distribution [address] [place] [address] Width 11:03am Platelet Count August 328 140-440 MAIN LAB, [address] [place] [address] 2019 1000/[place]3 [place] [address] 11:01am Platelet Count June 276 140-440 MAIN LAB, [address] [place] [address] 2019 1000/[place]3 [place] [address] 11:25pm Platelet Count April 08, 284 140-440 MAIN LAB, [address] [facility] 2019 1000/mm3 [place] [address] 11:03am Mean Platelet August 10.9 fL 7.4-10.4 MAIN L AB, [address] [place] [address] Volume 2019 [facility] [place] [address] 11:01am Mean Platelet June 10.3 fL 7.4-10.4 MAIN L AB, [address] [place] [address] Volume 2019 [place] [address] 11:25pm Mean Platelet April 08, 10.4 fL 7.4-10.4 MAIN LAB, [address] [place] [address] 2019 [facility] 62912 11:03am Neutrophils (%) August 62.1 % 40.0-72.0 MAIN LAB, [address] [place] [address] (Auto) 2019 [place] [address] 11:01am Neutrophils (%) June 70.9 % 40.0-72.0 MAIN LAB, [address] [place] [address] (Auto) 2019 [facility] 90989 11:25pm Neutrophils (%) April 08, 60.7 % 40.0-72.0 ELDA N LAB, [address] [place] [address] (Auto) 2019 [facility] 65573 11:03am Lymphocytes (%) August 29.7 % 17-45 MAIN LAB, [address] [place] [address] (Auto) 2019 [place] [address] 11:01am Lymphocytes (%) June 20.0 % 17-45 MAIN LAB, [address] [place] [address] (Auto) 2019 [place] [address] 11:25pm Lymphocytes (%) April 08, 28.7 % 17-45 LEDA N LAB, [address] [place] [address] (Auto) 2019 [place] [address] 11:03am Monocytes (%) August 5.9 % 3-11 MAIN L AB, [address] [place] [address] (Auto) 2019 [place] [address] 11:01am Monocytes (%) June 6.3 % 3-11 MAIN L AB, [address] [place] [address] (Auto) 2019 [place] [address] 11:25pm Monocytes (%) April 08, 6.4 % 3-11 MAIN LAB, [address] [place] [address] (Auto) 2019 [place] [address] 11:03am Eosinophils (%) August 1.3 % 0-3 MAIN LAB, [address] [place] [address] (Auto) 2019 [place] [address] 11:01am Eosinophils (%) June 1.6 % 0-3 MAIN LAB, [address] [place] [address] (Auto) 2019 [place] [address] 11:25pm Eosinophils (%) April 08, 2.7 % 0-3 LEDA N LAB, [address] [place] [address] (Auto) 2019 [place] [address] 11:03am Basophils (%) August 0.6 % 0-1 MAIN L AB, [address] [place] [address] (Auto) 2019 [place] [address] 11:01am Basophils (%) June 0.7 % 0-1 MAIN L AB, [address] [place] [address] (Auto) 2019 [place] [address] 11:25pm Basophils (%) April 08, 0.7 % 0-1 MAIN LAB, [address] [place] [address] (Auto) [address] [place] [address] 11:03am Immature August 0.4 % 0-1 MAIN LAB, [address] [place] [address] Granulocyte % 2019 [place] [address] (Auto) 11:01am Immature June 0.5 % 0-1 MAIN LAB, [address] [place] [address] Granulocyte % 2019 [place] [address] (Auto) 11:25pm Immature April 08, 0.8 % 0-1 MAIN LAB, [address] [place] [address] Granulocyte % 2019 [place] [address] (Auto) 11:03am Neutrophils # August 7.45 1.4-6.5 MAIN L AB, [address] [place] [address] (Auto) 2019 1000/[place]3 [place] [address] 11:01am Neutrophils # June 7.89 1.4-6.5 MAIN L AB, [address] [place] [address] (Auto) 2019 1000/[place]3 [place] [address] 11:25pm Neutrophils # April 08, 5.60 1.4-6.5 MAIN LAB, [address] [place] [address] (Auto) 2019 1000/[place]3 [place] [address] 11:03am Lymphocytes # August 3.56 1.2-3.4 MAIN L AB, [address] [place] [address] (Auto) 2019 1000/[place]3 [place] [address] 11:01am Lymphocytes # June 2.23 1.2-3.4 MAIN L AB, [address] [place] [address] (Auto) 2019 1000/[place]3 [place] [address] 11:25pm Lymphocytes # April 08, 2.65 1.2-3.4 MAIN LAB, [address] [place] [address] (Auto) 2019 1000/[place]3 [place] [address] 11:03am Monocytes # August 0.71 0.0-0.8 MAIN LAB , [address] [place] [address] (Auto) 2019 1000/[place]3 [place] [address] 11:01am Monocytes # June 0.70 0.0-0.8 MAIN LAB , [address] [place] [address] (Auto) 2019 1000/[place]3 [place] [address] 11:25pm Monocytes # April 08, 0.59 0.0-0.8 MAIN LA B, [address] [place] [address] (Auto) 2019 1000/[place]3 [place] [address] 11:03am Eosinophils # August 0.16 0.0-0.7 MAIN L AB, [address] [place] [address] (Auto) 2019 1000/[place]3 [place] [address] 11:01am Eosinophils # June 0.18 0.0-0.7 MAIN L AB, [address] [place] [address] (Auto) 2019 1000/[place] [address] 11:25pm Eosinophils # April 08, 0.25 0.0-0.7 MAIN LAB, [address] [place] [address] (Auto) 2019 1000/[place]3 [place] [address] 11:03am Basophils # August 0.07 0.0-0.1 MAIN LAB , [address] [place] [address] (Auto) 2019 1000/[place]3 [place] [address] 11:01am Basophils # June 0.08 0.0-0.1 MAIN LAB , [address] [place] [address] (Auto) 2019 1000/[place]3 [place] [address] 11:25pm Basophils # April 08, 0.06 0.0-0.1 MAIN LA B, [address] [place] [address] (Auto) 2019 1000/[place]3 [place] [address] 11:03am Absolute Immature Parker 0.1 0-1 MA IN LAB, [address] [place] [address] Granulocyte (auto [address] [place] [address] 11:01am Absolute Immature June 0.1 0-1 MA IN LAB, [address] [place] [address] Granulocyte (auto 2019 [place] [address] 11:25pm Absolute Immature April 08, 0.1 0-1 M AIN LAB, [address] [place] [address] Granulocyte (auto 2019 [facility] 92664 11:03am Differential August Automated MAIN LA B, [address] [place] [address] Method 2019 . [facility] [place] [address] 11:01am Differential June Automated MAIN LA B, [address] [place] [address] Method 2019 [place] [address] 11:25pm Differential April 08, Automated MAIN L AB, [address] [place] [address] Method [address] [place] [address] 11:03am Sodium Level August 137 mmol/L 137-145 MAIN L AB, [address] [place] [address] 2019 [place] [address] 11:01am Sodium Level June 138 mmol/L 137-145 MAIN L AB, [address] [place] [address] 2019 [facility] 31949 11:25pm Potassium Level August 4.3 mmol/L 3.6-5.0 LEDA N LAB, [address] [place] [address] 2019 [facility] 69471 11:01am Potassium Level June 3.6 mmol/L 3.6-5.0 LEDA N LAB, [address] [place] [address] 2019 [facility] 11641 11:25pm Chloride Level August 105 mmol/L 98-107 MAIN LAB, [address] [place] [address] 2019 [facility] 44373 11:01am Chloride Level June 103 mmol/L 98-107 MAIN LAB, [address] [place] [address] 2019 [facility] 85156 11:25pm Carbon Dioxide August 26 mmol/L - MAIN LAB, [address] [place] [address] 2019 [facility] 85994 11:01am Carbon Dioxide June 29 mmol/L MAIN LAB, [address] [place] [address] 2019 [facility] 51764 11:25pm Anion Gap August 1503-25 MAIN LAB, [address] [place] [address] 2019 [facility] 78219 11:01am Anion Gap June 1503-25 MAIN LAB, [address] [place] [address] 2019 [facility] 70674 11:25pm Blood Urea August 12 mg/dL 05-05 MAIN LAB, [address] [place] [address] Nitrogen 2019 [facility] 18390 11:01am Blood Urea June 13 mg/dL 05-05 MAIN LAB, [address] [place] [address] Nitrogen 2019 [facility] 59811 11:25pm Creatinine August 0.95 mg/dL 0.66-1.25 MAIN LAB , [address] [place] [address] 2019 [facility] 53434 11:01am Creatinine June 0.97 mg/dL 0.66-1.25 MAIN LAB , [address] [place] [address] 2019 [facility] 85619 11:25pm Glomerular August > 60 >60.0 MAIN LAB, [address] [place] [address] Filtration Rate 2019 mL/min [facility] 77937 Calc 11:01am Glomerular October > 60 >60.0 MAIN LAB, [address] [place] [address] Filtration Rate 2019 mL/min [facility] 45077 Calc 11:25pm Glucose Level August 101 mg/dL 70-100 MAIN L AB, [address] [place] [address] 2019 [facility] 09857 11:01am Glucose Level June 125 mg/dL 70-100 MAIN L AB, [address] [place] [address] 2019 [facility] 04442 11:25pm Calcium Level August 9.4 mg/dL 8.4-10.2 MAIN L AB, [address] [place] [address] 2019 [facility] 34060 11:01am Calcium Level June 9.1 mg/dL 8.4-10.2 MAIN L AB, [address] [place] [address] 2019 [facility] 39417 11:25pm Calcium Adjusted August 9.6 mg/dL 8.4-10.2 LEDA N LAB, [address] [place] [address] for Albumin 2019 [facility] 51256 11:01am Calcium Adjusted June 9.3 mg/dL 8.4-10.2 LEDA N LAB, [address] [place] [address] for Albumin 2019 [facility] 93244 11:25pm Total Bilirubin August 0.5 mg/dL 0.2-1.3 MAIN LAB, [address] [place] [address] 2019 [facility] 12980 11:01am Total Bilirubin June 0.3 mg/dL 0.2-1.3 MAIN LAB, [address] [place] [address] 2019 [facility] 89828 11:25pm Aspartate Amino August 34 U/L MAIN LAB, [address] [place] [address] Transf (AST/SGOT) 2019 S . [facility] 61064 11:01am Aspartate Amino June 34 U/L MAIN LAB, [address] [place] [address] Transf (AST/SGOT) 2019 . [facility] 05247 11:25pm Alanine August 50 U/L <50 As of MAIN LAB, [address] [place] [address] Aminotransferase 201901/09/20, [place] [address] (ALT/SGPT) 11:01am Reference Range for ALT/SGPT for adult patients has been updated. The Reference Range for ALT/SGPT has not been established for patients <18 years of age. Alanine June 48 U/L <50 As of MAIN LAB, [address] [place] [address] Aminotransferase 201901/09/20, the [facility] [address] (ALT/SGPT) 11:25pm Reference Range for ALT/SGPT for adult patients has been updated. The Reference Range for ALT/SGPT has not been established for patients <18 years of age. Troponin I June < 0.012 0-0.034 Reference MAIN LAB, [address] [place] [address] 2019 ng/mL Range: [place] [address] 11:25pm <0.034 ng/mL AMI Cut-off 0.120 ng/mLThe results of this assay can be falsely decreased in patients who consume Biotin. Total Protein August 7.3 g/dL 6.3-8.2 MAIN L AB, [address] [place] [address] 2019 [facility] 77846 11:01am Total Protein June 7.4 g/dL 6.3-8.2 MAIN L AB, [address] [place] [address] 2019 [facility] 46822 11:25pm Albumin August 4.0 g/dL 3.5-5.0 MAIN LAB, [address] [place] [address] 2019 [facility] 84897 11:01am Albumin June 4.1 g/dL 3.5-5.0 MAIN LAB, [address] [place] [address] 2019 [facility] 79994 11:25pm Cholesterol Level August 229 mg/dL 59-199 MA IN LAB, [address] [place] [address] 2019 [facility] 05988 11:01am HDL Cholesterol August 33 mg/dL 40-60 The National M AIN LAB, [address] [place] [address] 2019 Cholesterol [facility] 52125 11:01am Education Program (NCEP) has set the following guidelines (reference values) for cholesterol, HDL:Low HDL: <40 mg/dLNormal: 40-60 mg/dLDesirab le: >60 mg/dL LDL Cholesterol August 145.0 0-129 MAIN LAB, [address] [place] [address] 2019 mg/dL [facility] 64131 11:01am VLDL Cholesterol August 51.0 mg/dL 0-32 MA IN LAB, [address] [place] [address] 2019 [facility] 93012 11:01am Cholesterol/HDL August 6.93 0-3.9 MAIN LAB, [address] [place] [address] Ratio 2019 [place] [address] 11:01am Triglycerides August 255 mg/dL 0-149 MAIN L AB, [address] [facility] Level 2019 [place] [address] 11:01am Alkaline August 103 U/L 38-126 MAIN LAB, [address] [place] [address] Phosphatase 2019 [place] [address] 11:01am Alkaline June 92 U/L 38-126 MAIN LAB, [address] [place] [address] Phosphatase 2019 [place] [address] 11:25pm Thyroid August 1.89 mlU/L 0.47-4.68 The results MAIN LA B, [address] [facility] Stimulating 2019 of [place] [address] Hormone (TSH) 11:01am assay can be falsely decreased in patients who consume Biotin. Diagnostic Imaging Reports Report Dictated Date/Time Dictated By Status Radiology Report April 08, 2020 10:52am Tori Millan MD co mpleted [facility] ULTRASOUND REPORT PATIENT NAME: YOLANDA FANG [...] 2020 11:17am Tori Millan MD co mpleted [facility] RADIOLOGY REPORT PATIENT NAME: YOLANDA FANG [...] signed by Tori hart MD in OV> 04/08/201117 Radiology Report April 08, 2020 11:18am Tori Millan MD co mpleted [facility] RADIOLOGY REPORT PATIENT NAME: YOLANDA FANG 15 DATE OF : 1975 ATTENDING/ER PHYSICIAN: Carolina perez NP ER/ATTENDING PHYSICIAN: PRIMARY CARE PHYS: Out [facility] ADMITTING PHYSICIAN: CONSULTING PHYSICIAN: PROCEDURE DATE: [...] 2020 9:27am Tori Millan MD c ompleted [facility] ULTRASOUND REPORT PATIENT NAME: YOLANDA FANG [...] epididymoorchitis. dd: 04/23/2027 <Electronically signed by Tori hrat MD in OV> 04/23/2031 Radiology Report June 04, 2020 2:34pm Jaye Scott MD completed [facility] ULTRASOUND REPORT PATIENT NAME: YOLANDA FANG [...] 2020 11:49pm Roscoe Guerrero MD comp [facility] EKG PATIENT NAME: YOLANDA FANG 15 DATE OF : 1975 ATTENDING PHYSICIAN: PRIMARY CARE PHYS: Carolina Aguirre [employer] LEADER DICTATING PHYSICIAN: Roscoe Guerrero MD REPORT STATUS: [...] August 23, 2020 12:30pm Mario Guzmán completed [facility] CAT SCAN REPORT PATIENT NAME: YOLANDA FANG 15 DATE OF : 1975 ATTENDING/ER PHYSICIAN: Jj Lopez JR , DO ER/ATTENDING PHYSICIAN: PRIMARY CARE PHYS: Carolina Aguirre [employer]AD[employer] ADMITTING PHYSICIAN: CONSULTING PHYSICIAN: PROCEDURE DATE: 08/23/20 [...] 27, 2020 3:01pm Tori Millan MD completed [facility] ULTRASOUND REPORT PATIENT NAME: YOLANDA FANG [...] have a copy on file here at [facility]? No O ct2018 12:44pm Pt has a Living Will? No June 25, 2019 12:44pm Do we have a copy on file here at [facility]? No O ctober 2018 12:44pm Pt has a Power of 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 Stations? No June 12:44pm Do we have a copy on file here at [facility]? No O ctober 2018 12:44pm Chief Complaint and Reason for Visit Chief Complaint TESTICLE PAIN FOLLOW UP US RT HIP PAIN; LBP TESTICULAR COMPLAINT New Patient Orchitis and epididymitis Orchitis and epididymitis Chest Pain Other forms of dyspnea follow up Shortness of Breath r/o pe Orchitis and epididymitis Reason for Visit Epididymo-orchitis Epididymo-orchitis Encounters Encounter Location(s) Arrival/Admit Discharge/Depart Provider(s ) Date Date Departed [facility] April 07, 2020 April 08, 2020 null Emergency Medical 11:35pm 12:22am Center-Emergency Department Departed [facility] April 08, 2020 April 08, 2020 [facility] Emergency Medical 9:03am 11:39am Center-Emergency Department Departed [facility] April 08, 2020 April 08, 2020 Manuel Figueroa [facility] 9:06am 9:07am , SRIDEVI [facility] Departed [facility] April 08, 2020 April 08, 2020 [facility] Emergency Medical 8:44pm 9:10pm Center-Emergency Department Departed [facility] April 09, 2020 April 09, 2020 Jerome Joshi Physician/Prov Medical 7:23am 8:40am MD ider Office [facility] Visit [employer] Departed [facility] April 23, 2020 April 23, 2020 Jerome younger [facility] 7:43am 7:44am MD [facility] Departed [facility] June 04June 04, 2020 Jerome cordova [facility] 2019 1:17pm 1:18pm MD [facility] Departed [facility] June 10, 2020 June 11, 2020 null Emergency Medical 10:46pm 12:27am Center-Emergency Department Departed [facility] June 18, 2020 June 18, 2020 CARLOTTA Morales [facility] 11:10am 11:11am Malick cazares [facility] Departed [facility] June 29, June 29, 2020 Jerome Joshi Physician/Prov Medical 2019 1:41pm 2:05pm MD [facility] Departed [facility] August 20, August 20, 2020 Quinn Lopez JR, [facility] Medical 2019 4:17pm 4:18pm DO [facility] Departed [facility] August 23, August 23, 2020 Quinn Lopez JR, [facility] 2019 11:13am 11:14am DO [facility] Departed [facility] August 27, August 27, 2020 Jerome Joshi [facility] 2019 2:26pm 2:27pm MD [facility] Recent Diagnosis Onset Date Epididymo-orchitis Epididymo-orchitis [...] available Insurance Providers Guarantor YOLANDA FANG Address [address] [place] [address] Contact Info. Home Phone: Payer Policy Id Coverage Id Subscriber's Subscriber Id Effective E xpiration Name Date Date [place]ICA[place] [id number] YOLANDA FANG [id number] [place] SELF PAY Self N/A Plan of Treatment [...] Referral Date Information Manuel Aguirre Work Phone: [phone] Fig[address] NP [facility] [address] Manuel Aguirre Work Phone: [address] [place] [address] [facility] [address] Jerome Willoughby Work Phone: [facility] Urology MD Adi [address] [place] [address] [place] [address] Town Out Future Procedures Future procedure information [...] :19am alcohol intake frequency holidays/special occasions only Oct 2019 12:19am Substance/Street Drug Use No June 11 [...]
--- OUTSIDE RECORDS SUMMARY | 2022-03-21 09:33 | XMS_ITS | Continuity of Care Document ---
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 Reason for Visit Change in bowel function Morbid obesity due to excess calories Smoker Epididymo-orchitis Hearing loss, bilateral Multinodular goiter (nontoxi c) Allergies, Adverse Reactions, Alerts Allergen Type Severity [...] Smoking Status Current every day smoker October 09 7:24pm Additional Data Assigned Sex Male Family [...] PO THREE TIMES March A DAY 2019 11:45pm Ibuprofen Active 600 MG PO THREE TIMES Tonya A DAY 2019 11:45pm Levofloxacin Disconti 750 MG PO DAILY 19 March Octobe nued , r 2019, 12:03am [...] MG PO TWICE A DAY 14 7 Decemb Dec emb nued r , er 2021 08, 1:10am 2020 12:01a m Amoxicillin- Active 1 TAB PO TWICE A DAY September, Clavulanate 2021 (Augmentin) 8:20pm 875-125 mg tablet Immunizations Immunization Event Not Given Dose [employer] Lot Number Vac cine Date Reason Number Informatio n Statement (VIS) Detail Covid-27 December 30mcg/0.3ml , Pfizer (Purple 2020 top) Covid-January 19 30mcg/0.3ml 2020 Pfizer (Purple top) Procedures Procedure Date Performed Status US Thyroid Soft Tissue Neck September 15, 2021 2:00pm complet ed US Gd FNA Breast/Node/Thyroid November 11, 2021 11:00am comple anselmo CT Chest w/o Contrast September 08, 2021 5:00pm completed DIAGNOSTIC COLONOSCOPY January 25, 2021 active INTERFACE ELECTROCARDIOGRAM December 23, 2020 2:38am complete d US Testicles (Scrotal) February 01, 2021 2:30pm completed Relevant Diagnostic Tests and/or Laboratory Data Laboratory Results Test Date/Time Result Interpretation Reference Result Comment Performing Range Site White Blood December 8.70 4.8-10.8 MAIN LAB Count 2020 1000/mm3 [address] 2:40am [place] [address] Red Blood December 5.05 M/mm3 4.70-6.00 MAIN LAB Count [address] 2:40am [facility] [address] Hemoglobin December 14.3 g/dL 14.0-18.0 MAIN LAB 2020 133 [facility] 2:40am [place] [address] Hematocrit 43.3 % 42-52 MAIN LAB 2020 [facility] 2:40am [place] [address] Mean December 85.7 fL 80.0-94.0 MAIN LAB Corpuscular 2020 133 [facility] Volume 2:40am [place] [address] Mean December 28.3 pg 27-31 MAIN LAB Corpuscular 2020 [facility] Hemoglobin 2:40am [place] [address] Mean December 33.0 g/dL 33-37 MAIN LAB Corpuscular 2020 [address] [facility] Hemoglobin 2:40am . [facility] [place] [address] Concent Red Cell December 13.9 % 11.5-14.5 MAIN LAB Distribution 2020 [facility] Width 2:40am [place] [address] Platelet December 258 140-440 MAIN LAB Count 2020 1000/mm3 133 [facility] 2:40am [place] [address] Mean December 10.1 fL 7.4-10.4 MAIN LAB Platelet 2020 133 [facility] Volume 2:40am [place] [address] Neutrophils 57.1 % 40.0-72.0 MAIN LAB (%) (Auto) 2020 133 [facility] 2:40am [place] [address] Lymphocytes 33.7 % 17-45 MAIN LAB (%) (Auto) 2020 [address] [facility] 2:40am [place] [address] Monocytes 6.0 % 3-11 MAIN LAB (%) (Auto) 2020 [address] [facility] 2:40am [place] [address] Eosinophils 2.2 % 0-3 MAIN LAB (%) (Auto) 2020 133 [facility] 2:40am [place] [address] Basophils 0.7 % 0-1 MAIN LAB (%) (Auto) [address] [place] [address] 2:40am [place] [address] Immature 0.3 % 0-1 MAIN LAB Granulocyte [address] % (Auto) 2:40am [place] [address] Neutrophils 4.97 1.4-6.5 MAIN LAB # (Auto) 2020 1000/mm3 133 [facility] 2:40am [place] [address] Lymphocytes 2.93 1.2-3.4 MAIN LAB # (Auto) 2020 1000/mm3 133 [facility] 2:40am [place] [address] Monocytes # 0.52 0.0-0.8 MAIN LAB (Auto) 2020 1000/mm3 133 [facility] 2:40am [place] [address] Eosinophils 0.19 0.0-0.7 MAIN LAB # (Auto) 2020 1000/mm3 133 [facility] 2:40am [place] [address] Basophils # 0.06 0.0-0.1 MAIN LAB (Auto) 2020 1000/mm3 133 [facility] 2:40am [place] [address] Absolute 0.0 0-1 MAIN LAB Immature 2020 133 [facility] Granulocyte 2:40am [facility] [address] (auto Differential Automated MAIN LA B Method 2020 133 [facility] 2:40am [place] [address] Sodium Level December 140 mmol/L 137-145 MAIN L AB 2020 133 [facility] 2:40am [place] [address] Potassium 3.5 mmol/L 3.6-5.0 MAIN LAB Level 2020 133 [facility] 2:40am [place] [address] Chloride December 105 mmol/L 98-107 MAIN LAB Level 2020 133 [facility] 2:40am [place] [address] Carbon December 29 mmol/L 22-30 MAIN LAB Dioxide 2020 133 [facility] Level 2:40am [place] [address] Anion Gap 6 7-16 MAIN LAB 2020 133 [facility] 2:40am [place] [address] Blood Urea December 11 mg/dL 8-26 MAIN LAB Nitrogen [address] [place] [address] 2:40am [place] [address] Creatinine December 0.85 mg/dL 0.66-1.25 MAIN LAB [address] [place] [address] 2:40am [place] [address] Glomerular December > 60 >60.0 MAIN LAB Filtration 2020 mL/min [address] [place] [address] Rate Calc 2:40am [place] [address] Glucose December 121 mg/dL 70-100 MAIN LAB Level [address] [place] [address] 2:40am [place] [address] Calcium December 8.5 mg/dL 8.4-10.2 MAIN LAB Level [address] [place] [address] 2:40am [place] [address] Magnesium December 2.0 mg/dL 1.6-2.3 MAIN LAB Level [address] [place] [address] 2:40am [place] [address] Troponin I December < 0.012 0-0.034 Reference MAIN LAB 2020 ng/mL Range: <0.[address] [place] [address] 2:40am ng/[place] [address] Cut-off 0.120 ng/mLThe results of this assay can be falsely decreased in patients who consume Biotin. SARS-CoV-2 November Negative Negative This test is MAIN L AB RNA (RT-PCR) 2020 only for use [address] [place] [address] 10:00am under the [place] [address] and Drug Administration' s (FDA) Emergency Use [...] for providers can be found at: fda.gov/media/1 35582/downloadF act sheets for patients can be found at: fda.gov/media/1 06104/download SARS-CoV-2 January 19, Negative Negative This test is MAIN L AB RNA (RT-PCR) 2020 only for use [address] [place] [address] 12:00pm [place] [address] and Drug Administration' s (FDA) Emergency Use [...] sheets for providers can be found at: [employer]/Hole 19/ 93147/downloadF act sheets for patients can be found at: [employer]/Hole 19/87/download SARS-CoV-2 September Negative Negative Note: This MAIN LAB RNA (RT-PCR) 2021 RT-PCR assay is [facility] 8:54pm intended for [address] [facility] [place] [address] qualitative detection of nucleic acid from SARS-CoV-2.This test has not been FDA cleared or approved. This test has been authorized by the FDA under an Emergency Use Authorization (EUA) for use by authorized laboratories. Fact sheets for providers can be found at: [employer]/Hole 19/ 20930/downloadF act sheets for patients can be found at: [employer]/Hole 19/ 05348/download Diagnostic Imaging Reports Report Dictated Date/Time Dictated By Status Electrocardiogram December 23, 2020 3:28am Mario Belcher completed [facility] EKG PATIENT NAME: YOLANDA FANG 15 [...] 10, 2021 10:06pm Sunshine Montgomery MD completed [facility] CAT SCAN REPORT PATIENT [...] 16, 2021 8:21am Arnie Murillo MD completed [facility] ULTRASOUND REPORT PATIENT [...] TI-RA DS 4 right thyroid nodule. dd: 09/16/2121 <Electronically signed by Arnie brasher MD in OV> 09/16/21 0847 Report Dictated Date/Time Dictated By Status Radiology Report November 11, 2021 1:09pm Arnie Murillo MD completed [facility] ULTRASOUND REPORT PATIENT [...] informed consent was obtained from the patient. [place] protocol including a timeout was performed prior to the start of the procedure. The patient was positioned supine on th e procedure table. The anterior neck was [...] the needle and directly submitted to the nuclear technologist who was present for the pro cedure. A total of four passes were made in this fashion and directly submitted t o the nuclear technologist who was present for the procedure. [...] 2021 1 :48pm Respiratory rate 16 /min 12-January 25, 2021 1:48pm Oxygen saturation by Pulse [...] 8:52pm Respiratory rate 18 /min 12-September 29, 2 022 8:52pm Oxygen saturation by Pulse 100 [...] [facility] [place]? No O ctober 2018 12:44pm Pt has a Living Will? No June 25, 2019 12:44pm Do we have a copy on file here at [facility]? 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 No June 12:44pm Do we have a copy on file here at [facility]? No O ctober 2018 12:44pm Insurance Providers Guarantor YOLANDA FANG Address [address] [place] [address] Contact Info. Home Phone: Payer Policy Id Coverage Id Subscriber's Subscriber Id Effective E xpiration Name Date Date MEDICAID OF [id number] YOLANDA FANG [id number] [place] S[employer] PAY Self N/A Encounters Encounter Location(s) Arrival/Admit Date Discharge/Depart Date Provider(s) Departed [facility] December 07, 2020 December 07, 2020 PREFITTER Sandrine Yu Clinical Medical 6:45am 6:46am [facility] Departed [facility] December 23, 2020 December 23, 2020 null Emergency Medical 2:24am 4:05am Center-Emergency Department Departed [facility] January 19, 2021 January 19, 2021 4:03am Kd pineda Clinical Medical 4:02am MD [facility] Departed [facility] January 25, 2021 January 25, 2021 2:09pm [facility] miriam Surgical Day Medical 11:06am MD Micki [facility] Center-Surgical Services Departed [facility] February 01, 2021 February 01, 2021 2:30pm Jerome cordova [facility] 2:29pm MD Adi [facility] Departed [facility] February 10, 2021 February 10, 2021 2:07pm Jerome cordova [facility] Medical 1:44pm MD [facility] 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 Departed [facility] February 22, 2021 February 22, 2021 [facility] Emergency Medical 11:47am 12:38pm Center-Emergency Department Departed [facility] August 13, 2021 August 14, 2021 nu l Emergency Medical 11:02pm 1:34am Center-Emergency Department Departed [facility] September 08September 08, 2021 Quinn Lopez [facility]- 2020 5:01pm 5:02pm DO RUDDY [facility] Departed [facility] September 15, 2021 September 15, 2021 Kenna Morel [facility] 1:43pm 1:44pm SRIDEVI [facility] Departed [facility] September 29, 2021 September 29, 2021 [facility] Emergency Medical 6:31pm 9:12pm Center-Emergency Department Departed [facility] October 11, 2021 October 11, 2021 Anibal Mandel [facility] Medical 11:31am 12:03pm DO vandana Suarez [facility] Visit mother baby rn Departed [facility] November 11, 2021 November 11, 2021 Mackenzie Mandel [facility] 10:48am 10:49am DO Erick [facility] Recent Diagnosis Onset Date Change in bowel function Morbid obesity due to excess calories Smoker Epididymo-orchitis Hearing loss, bilateral Multinodular goiter (nontoxic) Functional Status Observation Response Date Recorded Living [...] excess calories acute Smoker acute Epididymo-orchitis acute Hearing loss, bilateral chronic Multinodular goiter (nontoxic) c hronic Plan of Treatment Epididymo-orchitis Plan Likely left [...] Work Phone: Alicia FUENTES JR, DO [address] [facility] [phone] Jj Lopez Work Phone: Alicia FUENTES JR, DO [address] [facility] [place] [phone] [employer] Work Phone: Alicia FUENTES JR, DO [address] [facility] [place] [phone] Jj Lopez Work Phone: Alicia FUENTES JR, DO [address] [facility] [phone] Future Procedures Future procedure information is unavailable Future Medications Future medication information is unavailable Patient Instructions Palpitations ([facility]) COVID 19 General Instructions- decrease the spread of coronavirus ([facility]) COVID 19 General Instructions- decrease the spread of coronavirus ([facility]) High Blood Pressure ([facility]) Conjunctivitis ([facility]) ED COVID 19 General Instructions- decrease [...]
--- OUTSIDE RECORDS SUMMARY | 2022-03-21 09:33 | XMS_ITS | Continuity of Care Document ---
:1975 Author Organization [facility] Address [address] [place] [address] Phone Care Team Providers Name Role Phone [...] Allergy unknown September 24, 2020 12:34pm Ye s Active Medications Medication Status Dose [...] 12:45am Levofloxacin Discontin 750 MG PO DAILY Marchobe ued , r 2019, 1:03am 2019 [...] April 08, 2020 10:39am completed INTERFACE ELECTROCARDIOGRAM December 23, 2020 3:38am [...] 8:35am Urine April 09, 1.025 Specific 2020 [place] 8:35am (Manual) POC Urine RBC April 09, Trace 2019 Intact 8:35am Urine pH April 09, 5.5 (Manual) 2020 8:35am POC Urine April 09, Negative Protein 2019 Confirmation 8:35am Urine April 09, 0.2 Urobilinogen 2019 (Manual) 8:35am Urine Nitrite April 09, Negative (Manual) 2020 8:35am Urine April 09, Negative Leukocyte 2019 Esterase 8:35am (Manual) White Blood December 8.70 4.8-10.8 MAIN LAB , [address] [facility] 2020 1000/mm3 . [facility] [place] [address] 3:40am White Blood August 12.00 4.8-10.8 MAIN LAB , [address] [place] [address] 2019 1000/mm3 [facility] [place] [address] 12:01pm White Blood June 11.14 4.8-10.8 MAIN LAB , [address] [place] [address] 2019 1000/mm3 [place] [address] 12:25am White Blood April 08, 9.22 4.8-10.8 MAIN LA B, [address] [facility] 2019 1000/mm3 [place] [address] 12:03pm Red Blood December 5.05 M/mm3 4.70-6.00 MAIN LAB, [address] [place] [address] [place] [address] 3:40am Red Blood August 5.37 M/mm3 4.70-6.00 MAIN LAB, [address] [place] [address] [facility] [place] [address] 12:01pm Red Blood June 5.37 M/mm3 4.70-6.00 MAIN LAB, [address] [place] [address] Count 2019 [place] [address] 12:25am Red Blood April 08, 5.22 M/mm3 4.70-6.00 MAIN LAB , [address] [place] [address] 2019 [place] [address] 12:03pm Hemoglobin December 14.3 g/dL 14.0-18.0 MAIN LAB, [address] [place] [address] [place] [address] 3:40am Hemoglobin August 15.1 g/dL 14.0-18.0 MAIN LAB, [address] [place] [address] 2019 [place] [place] [address] 12:01pm Hemoglobin June 15.1 g/dL 14.0-18.0 MAIN LAB, [address] [place] [address] 2019 [place] [address] 12:25am Hemoglobin April 08, 14.7 g/dL 14.0-18.0 MAIN LAB , [address] [place] [address] 2019 [place] [address] 12:03pm Hematocrit December 43.3 % 42-52 MAIN LAB, [address] [place] [address] 2020 [facility] [place] [address] 3:40am Hematocrit August 47.3 % 42-52 MAIN LAB, [address] [place] [address] 2019 [facility] [place] [address] 12:01pm Hematocrit June 46.7 % 42-52 MAIN LAB, [address] [place] [address] 2019 [place] [address] 12:25am Hematocrit April 08, 45.9 % 42-52 MAIN LAB , [address] [place] [address] 2019 [place] [address] 12:03pm Mean December 85.7 fL 80.0-94.0 MAIN LAB, [address] [place] [address] [facility] 2020 [place] [address] Volume 3:40am Mean August 88.1 fL 80.0-94.0 MAIN LAB, [address] [place] [address] 2019 [place] [address] Volume 12:01pm Mean June 87.0 fL 80.0-94.0 MAIN LAB, [address] [place] [address] 2019 [place] [address] Volume 12:25am Mean April 08, 87.9 fL 80.0-94.0 MAIN LAB, [address] [place] [address] 2019 [place] [address] Volume 12:03pm Mean December 28.3 pg 27-31 MAIN LAB, [address] [place] [address] [place] [address] Hemoglobin 3:40am Mean August 28.1 pg 27-31 MAIN LAB, [address] [place] [address] [place] [address] Hemoglobin 12:01pm Mean June 28.1 pg 27-31 MAIN LAB, [address] [place] [address] [facility] 2019 [place] [address] Hemoglobin 12:25am Mean April 08, 28.2 pg 27-31 MAIN LAB, [address] [facility] Corpuscular [address] [place] [address] Hemoglobin 12:03pm Mean December 33.0 g/dL MAIN LAB, [address] [place] [address] [place] [address] Hemoglobin 3:40am Concent Mean August 31.9 g/dL MAIN LAB, [address] [place] [address] Corpuscular 2019 [facility] [place] [address] Hemoglobin 12:01pm Concent Mean June 32.3 g/dL MAIN LAB, [address] [place] [address] [place] [address] Hemoglobin 12:25am Concent Mean April 08, 32.0 g/dL MAIN LAB, [address] [place] [address] Corpuscular 2019 [place] [address] Hemoglobin 12:03pm Concent Red Cell December 13.9 % 11.5-14.5 MAIN LAB, [address] [place] [address] Distribution 2020 [place] [address] Width 3:40am Red Cell August 14.0 % 11.5-14.5 MAIN LAB, [address] [place] [address] [place] [address] Width 12:01pm Red Cell June 14.1 % 11.5-14.5 MAIN LAB, [address] [place] [address] Distribution 2019 [facility] [place] [address] Width 12:25am Red Cell April 08, 14.0 % 11.5-14.5 MAIN LAB, [address] [place] [address] Distribution 2019 [facility] [place] [address] Width 12:03pm Platelet December 258 140-440 MAIN LAB, [address] [place] [address] Count 2020 1000/[place]3 [place] [address] 3:40am Platelet August 328 140-440 MAIN LAB, [address] [place] [address] Count 2019 1000/[place]3 [place] [address] 12:01pm Platelet June 276 140-440 MAIN LAB, [address] [place] [address] Count 2019 1000/mm3 [place] [address] 12:25am Platelet April 08, 284 140-440 MAIN LAB, [address] [place] [address] Count 2019 1000/mm3 [place] [address] 12:03pm Mean Platelet December 10.1 fL 7.4-10.4 MAIN L AB, [address] [place] [address] [place] [address] 3:40am Mean Platelet August 10.9 fL 7.4-10.4 MAIN L AB, [address] [place] [address] [place] [address] 12:01pm Mean Platelet June 10.3 fL 7.4-10.4 MAIN L AB, [address] [place] [address] Volume 2019 [place] [address] 12:25am Mean Platelet April 08, 10.4 fL 7.4-10.4 MAIN LAB, [address] [place] [address] Volume 2019 [place] [address] 12:03pm Neutrophils December 57.1 % 40.0-72.0 MAIN LAB , [address] [place] [address] (%) (Auto) 2020 [place] [address] 3:40am Neutrophils August 62.1 % 40.0-72.0 MAIN LAB , [address] [place] [address] (%) (Auto) 2019 [place] [address] 12:01pm Neutrophils June 70.9 % 40.0-72.0 MAIN LAB , [address] [place] [address] (%) (Auto) 2019 [place] [address] 12:25am Neutrophils April 08, 60.7 % 40.0-72.0 MAIN LA B, [address] [place] [address] (%) (Auto) 2019 [place] [address] 12:03pm Lymphocytes December 33.7 % 17-45 MAIN LAB , [address] [place] [address] (%) (Auto) 2020 [place] [address] 3:40am Lymphocytes August 29.7 % 17-45 MAIN LAB , [address] [place] [address] (%) (Auto) 2019 [place] [address] 12:01pm Lymphocytes June 20.0 % 17-45 MAIN LAB , [address] [place] [address] (%) (Auto) 2019 [place] [address] 12:25am Lymphocytes April 08, 28.7 % 17-45 MAIN LA B, [address] [place] [address] (%) (Auto) 2019 [place] [address] 12:03pm Monocytes (%) 6.0 % 3-11 MAIN L AB, [address] [place] [address] (Auto) 2020 [place] [address] 3:40am Monocytes (%) August 5.9 % 3-11 MAIN L AB, [address] [place] [address] (Auto) 2019 [place] [address] 12:01pm Monocytes (%) June 6.3 % 3-11 MAIN L AB, [address] [place] [address] (Auto) 2019 [place] [address] 12:25am Monocytes (%) April 08, 6.4 % 3-11 MAIN LAB, [address] [place] [address] (Auto) 2019 [place] [address] 12:03pm Eosinophils 2.2 % 0-3 MAIN LAB , [address] [place] [address] (%) (Auto) 2020 [place] [address] 3:40am Eosinophils August 1.3 % 0-3 MAIN LAB , [address] [place] [address] (%) (Auto) 2019 [place] [address] 12:01pm Eosinophils October 1.6 % 0-3 MAIN LAB , [address] [place] [address] (%) (Auto) [address] [place] [address] 12:25am Eosinophils April 08, 2.7 % 0-3 MAIN LA B, [address] [place] [address] (%) (Auto) [address] [place] [address] 12:03pm Basophils (%) December 0.7 % 0-1 MAIN L AB, [address] [place] [address] (Auto) 2020 [place] [address] 3:40am Basophils (%) August 0.6 % 0-1 MAIN L AB, [address] [place] [address] (Auto) 2019 [place] [address] 12:01pm Basophils (%) June 0.7 % 0-1 MAIN L AB, [address] [place] [address] (Auto) 2019 [place] [address] 12:25am Basophils (%) April 08, 0.7 % 0-1 MAIN LAB, [address] [place] [address] (Auto) 2019 [place] [address] 12:03pm Immature 0.3 % 0-1 MAIN LAB, [address] [place] [address] Granulocyte % 2020 [place] [address] (Auto) 3:40am Immature Parker 0.4 % 0-1 MAIN LAB, [address] [place] [address] Granulocyte % 2019 [place] [address] (Auto) 12:01pm Immature June 0.5 % 0-1 MAIN LAB, [address] [place] [address] Granulocyte % 2019 [place] [address] (Auto) 12:25am Immature April 08, 0.8 % 0-1 MAIN LAB, [address] [place] [address] Granulocyte % 2019 [place] [address] (Auto) 12:03pm Neutrophils # December 4.97 1.4-6.5 MAIN L AB, [address] [place] [address] (Auto) 2020 1000/[place]3 [place] [address] 3:40am Neutrophils # August 7.45 1.4-6.5 MAIN L AB, [address] [place] [address] (Auto) 2019 1000/[place]3 [place] [address] 12:01pm Neutrophils # June 7.89 1.4-6.5 MAIN L AB, [address] [place] [address] (Auto) 2019 1000/[place]3 [place] [address] 12:25am Neutrophils # April 08, 5.60 1.4-6.5 MAIN LAB, [address] [place] [address] (Auto) 2019 1000/mm3 [place] [address] 12:03pm Lymphocytes # December 2.93 1.2-3.4 MAIN L AB, [address] [place] [address] (Auto) 2020 1000/[place]3 [place] [address] 3:40am Lymphocytes # August 3.56 1.2-3.4 MAIN L AB, [address] [place] [address] (Auto) 2019 1000/[place]3 [place] [address] 12:01pm Lymphocytes # June 2.23 1.2-3.4 MAIN L AB, [address] [place] [address] (Auto) 2019 1000/[place]3 [place] [address] 12:25am Lymphocytes # April 08, 2.65 1.2-3.4 MAIN LAB, [address] [place] [address] (Auto) 2019 1000/mm3 [place] [address] 12:03pm Monocytes # December 0.52 0.0-0.8 MAIN LAB , [address] [place] [address] (Auto) 2020 1000/[place]3 [place] [address] 3:40am Monocytes # August 0.71 0.0-0.8 MAIN LAB , [address] [place] [address] (Auto) 2019 1000/[place]3 [place] [address] 12:01pm Monocytes # June 0.70 0.0-0.8 MAIN LAB , [address] [place] [address] (Auto) 2019 1000/mm3 [place] [address] 12:25am Monocytes # April 08, 0.59 0.0-0.8 MAIN LA B, [address] [place] [address] (Auto) 2019 1000/mm3 [place] [address] 12:03pm Eosinophils # 0.19 0.0-0.7 MAIN L AB, [address] [place] [address] (Auto) 2020 1000/[place]3 [place] [address] 3:40am Eosinophils # Parker 0.16 0.0-0.7 MAIN L AB, [address] [place] [address] (Auto) 2019 1000/[place]3 [place] [address] 12:01pm Eosinophils # June 0.18 0.0-0.7 MAIN L AB, [address] [place] [address] (Auto) 2019 1000/[place]3 [place] [address] 12:25am Eosinophils # April 08, 0.25 0.0-0.7 MAIN LAB, [address] [place] [address] (Auto) 2019 1000/mm3 [place] [address] 12:03pm Basophils # December 0.06 0.0-0.1 MAIN LAB , [address] [place] [address] (Auto) 2020 1000/[place]3 [place] [address] 3:40am Basophils # August 0.07 0.0-0.1 MAIN LAB , [address] [place] [address] (Auto) 2019 1000/[place]3 [place] [address] 12:01pm Basophils # June 0.08 0.0-0.1 MAIN LAB , [address] [place] [address] (Auto) 2019 1000/mm3 [place] [address] 12:25am Basophils # April 08, 0.06 0.0-0.1 MAIN LA B, [address] [place] [address] (Auto) 2019 1000/mm3 [place] [address] 12:03pm Absolute 0.0 0-1 MAIN LAB, [address] [place] [address] [place] [address] Granulocyte 3:40am (auto Absolute Parker 0.1 0-1 MAIN LAB, [address] [place] [address] [facility] [place] [address] Granulocyte 12:01pm (auto Absolute June 0.1 0-1 MAIN LAB, [address] [place] [address] Immature 2019 [place] [address] Granulocyte 12:25am (auto Absolute April 08, 0.1 0-1 MAIN LAB, [address] [place] [address] Immature 2019 [place] [address] Granulocyte 12:03pm (auto Differential December Automated MAIN LA B, [address] [facility] Method 2020 [facility] [place] [address] 3:40am Differential August Automated MAIN LA B, [address] [place] [address] [facility] [place] [address] 12:01pm Differential June Automated MAIN LA B, [address] [place] [address] Method 2019 [place] [address] 12:25am Differential April 08, Automated MAIN L AB, [address] [place] [address] Method 2019 [place] [address] 12:03pm Sodium Level December 140 mmol/L 137-145 MAIN L AB, [address] [place] [address] [facility] [place] [address] 3:40am Sodium Level August 137 mmol/L 137-145 MAIN L AB, [address] [place] [address] [facility] [facility] [place] [address] 12:01pm Sodium Level June 138 mmol/L 137-145 MAIN L AB, [address] [place] [address] 2019 [place] [address] 12:25am Potassium December 3.5 mmol/L 3.6-5.0 MAIN LAB, [address] [place] [address] [facility] [place] [address] 3:40am Potassium August 4.3 mmol/L 3.6-5.0 MAIN LAB, [address] [place] [address] [facility] [place] [address] 12:01pm Potassium June 3.6 mmol/L 3.6-5.0 MAIN LAB, [address] [place] [address] 2019 [place] [address] 12:25am Chloride December 105 mmol/L 98-107 MAIN LAB, [address] [place] [address] [place] [address] 3:40am Chloride August 105 mmol/L 98-107 MAIN LAB, [address] [place] [address] [facility] [place] [address] 12:01pm Chloride June 103 mmol/L 98-107 MAIN LAB, [address] [facility] Level 2019 [place] [address] 12:25am Carbon December 29 mmol/L MAIN LAB, [address] [facility] Dioxide Level 2020 [place] [address] 3:40am Carbon August 26 mmol/L MAIN LAB, [address] [place] [address] [place] [address] 12:01pm Carbon June 29 mmol/L MAIN LAB, [address] [place] [address] Dioxide Level [address] [place] [address] 12:25am Anion Gap December 1403-25 MAIN LAB, [address] [place] [address] [place] [address] 3:40am Anion Gap August 1503-25 MAIN LAB, [address] [place] [address] [place] [address] 12:01pm Anion Gap June 1503-25 MAIN LAB, [address] [place] [address] 2019 [place] [address] 12:25am Blood Urea December 11 mg/dL 05-05 MAIN LAB, [address] [place] [address] [place] [address] 3:40am Blood Urea August 12 mg/dL 05-05 MAIN LAB, [address] [place] [address] [place] [address] 12:01pm Blood Urea June 13 mg/dL 05-05 MAIN LAB, [address] [place] [address] Nitrogen 2019 [place] [address] 12:25am Creatinine December 0.85 mg/dL 0.66-1.25 MAIN LAB , [address] [place] [address] [place] [address] 3:40am Creatinine August 0.95 mg/dL 0.66-1.25 MAIN LAB , [address] [place] [address] [place] [address] 12:01pm Creatinine June 0.97 mg/dL 0.66-1.25 MAIN LAB , [address] [place] [address] 2019 [place] [address] 12:25am Glomerular December > 60 >60.0 MAIN LAB, [address] [place] [address] Filtration 2020 mL/[place] [address] Rate Calc 3:40am Glomerular Parker > 60 >60.0 MAIN LAB, [address] [place] [address] Filtration 2019 mL/[place] [address] Rate Calc 12:01pm Glomerular October > 60 >60.0 MAIN LAB, [address] [place] [address] Filtration 2019 mL/[place] [address] Rate Calc 12:25am Glucose Level December 121 mg/dL 70-100 MAIN L AB, [address] [place] [address] [place] [address] 3:40am Glucose Level August 101 mg/dL 70-100 MAIN L AB, [address] [place] [address] [place] [address] 12:01pm Glucose Level June 125 mg/dL 70-100 MAIN L AB, [address] [place] [address] 2019 [place] [address] 12:25am Calcium Level December 8.5 mg/dL 8.4-10.2 MAIN L AB, [address] [place] [address] [place] [address] 3:40am Calcium Level August 9.4 mg/dL 8.4-10.2 MAIN L AB, [address] [place] [address] [place] [address] 12:01pm Calcium Level June 9.1 mg/dL 8.4-10.2 MAIN L AB, [address] [place] [address] 2019 [place] [address] 12:25am Calcium August 9.6 mg/dL 8.4-10.2 MAIN LAB, [address] [place] [address] Adjusted for 2019 [place] [address] Albumin 12:01pm Calcium June 9.3 mg/dL 8.4-10.2 MAIN LAB, [address] [place] [address] [place] [address] Albumin 12:25am Magnesium December 2.0 mg/dL 1.6-2.3 MAIN LAB, [address] [place] [address] [place] [address] 3:40am Total Parker 0.5 mg/dL 0.2-1.3 MAIN LAB, [address] [place] [address] [place] [address] 12:01pm Total June 0.3 mg/dL 0.2-1.3 MAIN LAB, [address] [place] [address] Bilirubin 2019 [place] [address] 12:25am Aspartate August 34 U/L MAIN LAB, [address] [place] [address] Amino Transf [address] [place] [address] (AST/SGOT) 12:01pm Aspartate June 34 U/L MAIN LAB, [address] [place] [address] Amino Transf 2019 [facility] [place] [address] (AST/SGOT) 12:25am Alanine August 50 U/L <50 As of 01/09/20, MAIN L AB, [address] [place] [address] Aminotransfer 2019 the Reference S [facility] [address] ase 12:01pm Range for (ALT/SGPT) ALT/SGPT for adult patients has been updated. The Reference Range for ALT/SGPT has not been established for patients <18 years of age. Alanine June 48 U/L <50 As of 01/09/20, MAIN L AB, [address] [place] [address] Aminotransfer 2019 the Reference [facility] [address] ase 12:25am Range for (ALT/SGPT) ALT/SGPT for adult patients has been updated. The Reference Range for ALT/SGPT has not been established for patients <18 years of age. Troponin I December < 0.012 0-0.034 Reference Range: MA IN LAB, [address] [place] [address] 2020 ng/mL <0.034 ng/mL [facility] [address] 3:40am Cut-off 0.120 ng/mLThe results of this assay can be falsely decreased in patients who consume Biotin. Troponin I June < 0.012 0-0.034 Reference Range: [place] IN LAB, [address] [place] [address] 2019 ng/mL <0.034 ng/mL [facility] [address] 12:25am Cut-off 0.120 ng/mLThe results of this assay can be falsely decreased in patients who consume Biotin. Total Protein August 7.3 g/dL 6.3-8.2 [facility] L AB, [address] [place] [address] 2019 [facility] [place] [address] 12:01pm Total Protein June 7.4 g/dL 6.3-8.2 MAIN L AB, [address] [place] [address] 2019 [facility] [address] 12:25am Albumin August 4.0 g/dL 3.5-5.0 MAIN LAB, [address] [place] [address] 2019 [place] [address] 12:01pm Albumin June 4.1 g/dL 3.5-5.0 MAIN LAB, [address] [place] [address] 2019 [place] [address] 12:25am Cholesterol August 229 mg/dL 59-199 MAIN LAB , [address] [place] [address] 2019 [place] [address] 12:01pm HDL August 33 mg/dL 40-60 The National MAIN LA B, [address] [place] [address] Cholesterol 2019 Cholesterol . [place] [address] 12:01pm Education Program (NCEP) has set the following guidelines (reference values) for cholesterol, HDL:Low HDL: <40 mg/dLNormal: 40-60 mg/dLDesirable: >60 mg/dL LDL August 145.0 0-129 MAIN LAB, [address] [place] [address] Cholesterol 2019 mg/[place] [address] 12:01pm VLDL August 51.0 mg/dL 0-32 MAIN LAB, [address] [place] [address] Cholesterol 2019 [place] [address] 12:01pm Cholesterol/H August 6.93 0-3.9 MAIN L AB, [address] [place] [address] DL Ratio 2019 [place] [address] 12:01pm Triglycerides August 255 mg/dL 0-149 MAIN L AB, [address] [place] [address] Level 2019 [place] [address] 12:01pm Alkaline August 103 U/L 38-126 MAIN LAB, [address] [place] [address] Phosphatase 2019 [place] [address] 12:01pm Alkaline June 92 U/L 38-126 MAIN LAB, [address] [place] [address] Phosphatase 2019 [place] [address] 12:25am Thyroid August 1.89 mlU/L 0.47-4.68 The results of MAIN LAB, [address] [place] [address] Stimulating 2019 this assay can [facility] [address] Hormone (TSH) 12:01pm be falsely decreased in patients who consume Biotin. SARS-CoV-2 November Negative Negative This test is MAIN L AB, [address] [place] [address] RNA (RT-PCR) 2020 [place] [address] 11:00am under the Food and Drug Administration's [...] sheets for providers can be found at: [employer]terG/12 8420/downloadFac t sheets for patients can be found at: [employer] ([employer]/AlterG/14 6008/download Diagnostic Imaging Reports Report Dictated Date/Time Dictated By Status Radiology Report April 08, 2020 10:52am Tori Millan MD co mpleted [facility] ULTRASOUND REPORT PATIENT NAME: YOLANDA FANG [...] 2020 11:17am Tori Millan MD co mpleted [facility] RADIOLOGY REPORT PATIENT NAME: YOLANDA FANG 15 DATE OF : 1975 ATTENDING/ER PHYSICIAN: Carolina perez INSTITUTIONAL CUSTODIAN ER/ATTENDING PHYSICIAN: PRIMARY CARE PHYS: [place] [...] 2020 11:18am Tori Millan MD co mpleted [facility] RADIOLOGY REPORT PATIENT NAME: YOLANDA FANG 15 DATE OF : 1975 ATTENDING/ER PHYSICIAN: Carolina perez INSTITUTIONAL CUSTODIAN ER/ATTENDING PHYSICIAN: PRIMARY CARE PHYS: [place] [...] 2020 9:27am Tori Millan MD c ompleted [facility] ULTRASOUND REPORT PATIENT NAME: YOLANDA FANG [...] 04, 2020 2:34pm Jaye Scott MD completed [facility] ULTRASOUND REPORT PATIENT NAME: YOLADNA FANG 15 DATE OF : 1975 ATTENDING/ER PHYSICIAN: Jerome ruiz MD ER/ATTENDING PHYSICIAN: PRIMARY CARE PHYS: Carolina Aguirre INSTITUTIONAL CUSTODIAN ADMITTING PHYSICIAN: CONSULTING PHYSICIAN: PROCEDURE DATE: 06/04/20 [...] 10, 2020 11:49pm Roscoe Guerrero MD comp leted [facility] EKG PATIENT NAME: YOLANDA FANG 15 DATE OF : 1975 ATTENDING PHYSICIAN: PRIMARY CARE PHYS: Carolina Aguirre INSTITUTIONAL CUSTODIAN DICTATING PHYSICIAN: Roscoe Guerrero MD REPORT STATUS: [...] August 23, 2020 12:30pm Mario Guzmán completed [facility] CAT SCAN REPORT PATIENT NAME: YOLANDA [...] 27, 2020 3:01pm Tori Millan MD completed [facility] ULTRASOUND REPORT PATIENT NAME: YOLANDA FANG [...] December 23, 2020 3:28am Mario Belcher completed [facility] EKG PATIENT NAME: YOLANDA FANG 13 [...] Wyatt Confirm ed By:Demarco Wyatt 12/23/20 0458 Advance Directives Advance Directive Response Recorded Date/Time [...] 2018 1:44pm Pt has a Power of Trucksmith? No June 1:44pm Do we have a [...] with and (suspected) exposure to COVID-19 PALPITATIONS Reason for Visit Epididymo-orchitis Epididymo-orchitis Epididymo-orchitis Encounters Encounter Location(s) Arrival/Admit Discharge/Depart Provider(s ) Date Date Departed [facility] April 08, 2020 April 08, 2020 [facility] 12:35am 1:22am Center-Emergency Department Departed [facility] April 08, 2020 April 08, 2020 [facility] Emergency Medical 10:03am 12:39pm Center-Emergency Department Departed [facility] April 08, 2020 April 08[facility] 10:07am , SRIDEVI [facility] Departed [facility] April 08, 2020 April 08, 2020 [facility] Emergency Medical 9:44pm 10:10pm Center-Emergency Department Departed [facility] April 09, 2020 April 09, 2020 Jerome Joshi Physician/Prov Medical 8:23am 9:40am MD ider Office [facility] Visit business management intern Services Departed [facility] April 23, 2020 April 23, 2020 Jerome younger [facility] 8:43am 8:44am MD [facility] Departed [facility] June 04June 04, 2020 Jerome cordova [facility] 2019 2:17pm 2:18pm MD [facility] Departed [facility] June 10, 2020 June 11, 2020 [facility] Emergency Medical 11:46pm 1:27am Center-Emergency Department Departed [facility] June 18, 2020 June 18, 2020 CARLOTTA Morales [facility] 12:10pm 12:11pm Malick cazares [facility] Departed [facility] June 29, June 29, 2020 Jerome Joshi Physician/Prov Medical 2019 2:41pm 3:05pm , MD ider Office [facility] Visit business management intern Services Departed [facility] August 20, August 20, 2020 Quinn Lopez JR, [facility] Medical 2019 5:17pm 5:18pm DO [facility] Departed [facility] August 23August 23, 2020 Quinn Lopez JR, [facility] 2019 12:13pm 12:14pm DO [facility] Departed [facility] August 27August 27, 2020 Jerome Joshi [facility]- 2019 3:26pm 3:27pm MD [facility] Departed [facility] September 17, 2020 September 17, 2020 Dedra Eastman Physician/Prov Medical 3:47pm 4:46pm [facility] Medicine Departed [facility] September 24, September 24, 2020 Jerome Joshi Physician/Prov Medical 2020 12:32pm 12:54pm [facility] Visit business management intern Services Departed [facility] December 07, 2020 December 07, 2020 Melody Robles Clinical Medical 7:45am 7:46am [facility] December 23, 2020 December 23, 2020 [facility] Emergency Medical 3:24am 5:05am Center-Emergency Department Recent Diagnosis Onset Date Epididymo-orchitis Epididymo-orchitis Epididymo-orchitis Assessments Diagnosis Onset Date Resolution Status Epididymo-orchitis acute Epididymo-orchitis acute Epididymo-orchitis acute Functional Status Observation Response Date Recorded Living Situation Home December 23, 2020 5:0 4am Goals Goals may be documented in an alternate section. Mental Status Observation Response Date Recorded Comprehension Ability Understands Concepts April 08, 2020 1 2:50am Medical Equipment No Medical Equipment Information available Insurance Providers Guarantor YOLANDA FANG Address [address] [place], [place] [id number] Contact Info. Home Phone: Payer Policy Id Coverage Id Subscriber's Subscriber Id Effective E xpiration Name Date Date MEDICAID OF [id number] YOLANDA FANG [id number] [place] S[place]F PAY Self N/A Plan of Treatment [...] Lopez Work Phone: Alicia FUENTES JR, DO [address] [place] [address] [phone] Work Phone: [phone] Manuel Figueroa NP [facility] [phone] Manuel Aguirre Work Phone: [phone] Manuel Figueroa NP [facility] [phone] Jerome Willoughby Work Phone: [facility] Urology MD Adi [address] [facility] , [address] [facility] [address] [address] Out Future Procedures Future procedure information [...] Date of Observation Smokes tobacco daily (finding) December 23, 2020 4:58am Observation Status Observation Response Date of Response Alcohol Use No December 23, 2020 4:5 8am alcohol intake frequency holidays/special occasions only Dec 4:58am Substance/Street Drug Use Yes December 23 4:58am Substance Use Treatment No December 23, 2020 4:58am substance use type marijuana December 23, 2020 4:5 8am Smoking Status Current every day smoker December 23 4:58am Assigned Sex Male Vital Signs Vital Reading [...] [in_i] September 17 2:49pm Weight 198.67 kg Didi 8th, 202 1 2:49pm BMI (Body Mass Index) 53.3 kg/m2 [...] 96 mm[Hg] 50-85 December 23, 2020 4:36am Hospital Discharge Instructions
--- OUTSIDE RECORDS SUMMARY | 2022-03-21 09:33 | XMS_ITS | Continuity of Care Document ---
:1975 Author Organization [facility] Address [address] [place] [address] Phone Care Team Providers Name Role Phone [...] Disconti 500 MG PO DAILY 10 10 [facility] nued r , er 2019, 9:34am 2019 1:01am Gabapentin Active 300 MG PO THREE TIMES Tonya A DAY 2019 12:45am Ibuprofen Active 600 MG PO THREE TIMES Tonya A DAY 2019 12:45am Levofloxacin Disconti 750 MG PO DAILY 10 March Octobe nued , r 2019, 1:03am 2019 2:44pm Metoprolol Active 50 MG PO TWICE A DAY 60 February 1:21pm Erythromycin Active 1 APPLIC LEFTEYE DAILY 3.5 February 22, 2021 1:22pm Problems Active Problems Medical Problem Onset Date [...] 8:35am Urine April 09, 1.025 Specific 2020 [place] 8:35am (Manual) POC Urine RBC April 09, Trace 2019 Intact 8:35am Urine pH April 09, 5.5 (Manual) 2019 8:35am POC Urine April 09, Negative Protein 2019 Confirmation 8:35am Urine April 09, 0.2 Urobilinogen 2019 (Manual) 8:35am Urine Nitrite April 09, Negative (Manual) 2019 8:35am Urine April 09, Negative Leukocyte 2019 Esterase 8:35am (Manual) White Blood December 8.70 4.8-10.8 MAIN LAB , [address] Count 2020 1000/[place]3 [place] [address] 3:40am White Blood August 21.00 4.8-10.8 MAIN LAB , [address] Count 2019 1000/[place] [address] 12:01pm White Blood June 11.14 4.8-10.8 MAIN LAB , [address] [facility] Count 2019 1000/[place]3 [place] [address] 12:25am White Blood April 08, 9.22 4.8-10.8 MAIN LA B, [address] [facility] Count 2019 1000/[place]3 [place] [address] 12:03pm Red Blood December 5.05 M/mm3 4.70-6.00 MAIN LAB, [address] Count [address] [place] [address] 3:40am Red Blood August 5.37 M/mm3 4.70-6.00 MAIN LAB, [address] Count [address] [place] [address] 12:01pm Red Blood June 5.37 M/mm3 4.70-6.00 MAIN LAB, [address] [place] [address] Count 2019 [place] [address] 12:25am Red Blood April 08, 5.22 M/mm3 4.70-6.00 MAIN LAB , [address] [place] [address] 2019 [place] [address] 12:03pm Hemoglobin December 14.3 g/dL 14.0-18.0 MAIN LAB, [address] [place] [address] [place] [address] 3:40am Hemoglobin August 15.1 g/dL 14.0-18.0 MAIN LAB, [address] [place] [address] [place] [address] 12:01pm Hemoglobin June 15.1 g/dL 14.0-18.0 MAIN LAB, [address] [place] [address] 2019 [place] [address] 12:25am Hemoglobin April 08, 14.7 g/dL 14.0-18.0 MAIN LAB , [address] [place] [address] 2019 [place] [address] 12:03pm Hematocrit December 43.3 % 42-52 MAIN LAB, [address] [place] [address] [place] [address] 3:40am Hematocrit August 47.3 % 42-52 MAIN LAB, [address] [place] [address] [place] [address] 12:01pm Hematocrit June 46.7 % 42-52 MAIN LAB, [address] [place] [address] 2019 [place] [address] 12:25am Hematocrit April 08, 45.9 % 42-52 MAIN LAB , [address] [place] [address] 2019 [place] [address] 12:03pm Mean December 85.7 fL 80.0-94.0 MAIN LAB, [address] [place] [address] [place] [address] Volume 3:40am Mean August 88.1 fL 80.0-94.0 MAIN LAB, [address] [place] [address] [place] [address] Volume 12:01pm Mean June 87.0 fL 80.0-94.0 MAIN LAB, [address] [place] [address] [place] [address] Volume 12:25am Mean April 08, 87.9 fL 80.0-94.0 [facility], [facility] 2019 [place] [address] Volume 12:03pm Mean December 28.3 pg 27-31 MAIN LAB, [address] [facility] Corpuscular 2020 [place] [address] Hemoglobin 3:40am Mean August 28.1 pg 27-31 MAIN LAB, [address] [facility] Corpuscular 2019 [place] [address] Hemoglobin 12:01pm Mean June 28.1 pg 27-31 [facility], [facility] 2019 [place] [address] Hemoglobin 12:25am Mean April 08, 28.2 pg 27- [facility] LAB, [facility] [address] [place] [address] Hemoglobin 12:03pm Mean December 33.0 g/dL - [facility] LAB, [facility] 2020 [place] [address] Hemoglobin 3:40am Concent Mean August 31.9 g/dL -37 MAIN LAB, [address] [facility] Corpuslar 2019 [place] [address] Hemoglobin 12:01pm Concent Mean June 32.3 g/dL - [facility] LAB, [facility] 2019 [place] [address] Hemoglobin 12:25am Concent Mean April 08, 32.0 g/dL -37 MAIN LAB, [address] [place], [place] [address]lar 2019 [place] [address] Hemoglobin 12:03pm Concent Red Cell December 13.9 % 11.5-14.5 MAIN LAB, [address] [facility] Distribution 2020 [place] [address] Width 3:40am Red Cell August 14.0 % 11.5-14.5 MAIN LAB, [address] [place] [address] Distribution 2019 [place] [address] Width 12:01pm Red Cell June 14.1 % 11.5-14.5 MAIN LAB, [address] [place] [address] 2019 [place] [address] Width 12:25am Red Cell April 08, 14.0 % 11.5-14.5 MAIN LAB, [address] [place] [address] 2019 [place] [address] Width 12:03pm Platelet December 258 140-440 MAIN LAB, [address] [place] [address] Count 2020 1000/[place]3 [place] [address] 3:40am Platelet August 328 140-440 MAIN LAB, [address] [place] [address] Count 2019 1000/[place]3 [place] [address] 12:01pm Platelet June 276 140-440 MAIN LAB, [address] [place] [address] Count 2019 1000/mm3 [place] [address] 12:25am Platelet April 08, 284 140-440 MAIN LAB, [address] [place] [address] Count 2019 1000/mm3 [place] [address] 12:03pm Mean Platelet December 10.1 fL 7.4-10.4 MAIN L AB, [address] [place] [address] [place] [address] 3:40am Mean Platelet August 10.9 fL 7.4-10.4 MAIN L AB, [address] [place] [address] [place] [address] 12:01pm Mean Platelet June 10.3 fL 7.4-10.4 MAIN L AB, [address] [place] [address] Volume 2019 [place] [address] 12:25am Mean Platelet April 08, 10.4 fL 7.4-10.4 MAIN LAB, [address] [place] [address] Volume 2019 [place] [address] 12:03pm Neutrophils December 57.1 % 40.0-72.0 MAIN LAB , [address] [place] [address] (%) (Auto) 2020 [place] [address] 3:40am Neutrophils August 62.1 % 40.0-72.0 MAIN LAB , [address] [place] [address] (%) (Auto) 2019 [place] [address] 12:01pm Neutrophils October 70.9 % 40.0-72.0 MAIN LAB , [address] [place] [address] (%) (Auto) [address] [place] [address] 12:25am Neutrophils April 08, 60.7 % 40.0-72.0 MAIN LA B, [address] [place] [address] (%) (Auto) [address] [place] [address] 12:03pm Lymphocytes 33.7 % 17-45 MAIN LAB , [address] [place] [address] (%) (Auto) [address] [place] [address] 3:40am Lymphocytes August 29.7 % - MAIN LAB , [address] [place] [address] (%) (Auto) [address] [place] [address] 12:01pm Lymphocytes June 20.0 % - MAIN LAB , [address] [place] [address] (%) (Auto) [address] [place] [address] 12:25am Lymphocytes April 08, 28.7 % - MAIN LA B, [address] [place] [address] (%) (Auto) [address] [place] [address] 12:03pm Monocytes (%) December 6.0 % 3-11 MAIN L AB, [address] [place] [address] (Auto) 2020 [place] [address] 3:40am Monocytes (%) August 5.9 % 3-11 MAIN L AB, [address] [place] [address] (Auto) 2019 [place] [address] 12:01pm Monocytes (%) June 6.3 % 3-11 MAIN L AB, [address] [place] [address] (Auto) 2019 [place] [address] 12:25am Monocytes (%) April 08, 6.4 % 3-11 MAIN LAB, [address] [place] [address] (Auto) 2019 [place] [address] 12:03pm Eosinophils December 2.2 % 0-3 MAIN LAB , [address] [place] [address] (%) (Auto) [address] [place] [address] 3:40am Eosinophils August 1.3 % 0-3 MAIN LAB , [address] [place] [address] (%) (Auto) [address] [place] [address] 12:01pm Eosinophils June 1.6 % 0-3 MAIN LAB , [address] [place] [address] (%) (Auto) [address] [place] [address] 12:25am Eosinophils April 08, 2.7 % 0-3 MAIN LA B, [address] [place] [address] (%) (Auto) [address] [place] [address] 12:03pm Basophils (%) December 0.7 % 0-1 MAIN L AB, [address] [place] [address] (Auto) 2020 [place] [address] 3:40am Basophils (%) August 0.6 % 0-1 MAIN L AB, [address] [place] [address] (Auto) 2019 [place] [address] 12:01pm Basophils (%) June 0.7 % 0-1 MAIN L AB, [address] [place] [address] (Auto) 2019 [place] [address] 12:25am Basophils (%) April 08, 0.7 % 0-1 MAIN LAB, [address] [place] [address] (Auto) 2019 [place] [address] 12:03pm Immature December 0.3 % 0-1 MAIN LAB, [address] [place] [address] Granulocyte % 2020 [place] [address] (Auto) 3:40am Immature August 0.4 % 0-1 MAIN LAB, [address] [place] [address] Granulocyte % [address] [place] [address] (Auto) 12:01pm Immature June 0.5 % 0-1 MAIN LAB, [address] [place] [address] Granulocyte % [address] [place] [address] (Auto) 12:25am Immature April 08, 0.8 % 0-1 MAIN LAB, [address] [place] [address] Granulocyte % 2019 [place] [address] (Auto) 12:03pm Neutrophils # December 4.97 1.4-6.5 MAIN L AB, [address] [place] [address] (Auto) 2020 1000/[place]3 [place] [address] 3:40am Neutrophils # August 7.45 1.4-6.5 MAIN L AB, [address] [place] [address] (Auto) 2019 1000/[place]3 [place] [address] 12:01pm Neutrophils # June 7.89 1.4-6.5 MAIN L AB, [address] [place] [address] (Auto) 2019 1000/mm3 [place] [address] 12:25am Neutrophils # April 08, 5.60 1.4-6.5 MAIN LAB, [address] [place] [address] (Auto) 2019 1000/mm3 [place] [address] 12:03pm Lymphocytes # December 2.93 1.2-3.4 MAIN L AB, [address] [place] [address] (Auto) 2020 1000/[place] [address] 3:40am Lymphocytes # August 3.56 1.2-3.4 MAIN L AB, [address] [place] [address] (Auto) 2019 1000/[place]3 [place] [address] 12:01pm Lymphocytes # June 2.23 1.2-3.4 MAIN L AB, [address] [place] [address] (Auto) 2019 1000/mm3 [place] [address] 12:25am Lymphocytes # April 08, 2.65 1.2-3.4 MAIN LAB, [address] [place] [address] (Auto) 2019 1000/mm3 [place] [address] 12:03pm Monocytes # December 0.52 0.0-0.8 MAIN LAB , [address] [place] [address] (Auto) 2020 1000/[place] [address] 3:40am Monocytes # August 0.71 0.0-0.8 MAIN LAB , [address] [place] [address] (Auto) 2019 1000/[place]3 [place] [address] 12:01pm Monocytes # June 0.70 0.0-0.8 MAIN LAB , [address] [place] [address] (Auto) 2019 1000/mm3 [place] [address] 12:25am Monocytes # April 08, 0.59 0.0-0.8 MAIN LA B, [address] [place] [address] (Auto) 2019 1000/mm3 [place] [address] 12:03pm Eosinophils # December 0.19 0.0-0.7 MAIN L AB, [address] [place] [address] (Auto) 2020 1000/[place] [place] [address] 3:40am Eosinophils # August 0.16 0.0-0.7 MAIN L AB, [address] [place] [address] (Auto) 2019 1000/[place]3 [place] [address] 12:01pm Eosinophils # June 0.18 0.0-0.7 MAIN L AB, [address] [place] [address] (Auto) 2019 1000/mm3 [place] [address] 12:25am Eosinophils # April 08, 0.25 0.0-0.7 MAIN LAB, [address] [place] [address] (Auto) 2019 1000/mm3 [place] [address] 12:03pm Basophils # 0.06 0.0-0.1 MAIN LAB , [address] [place] [address] (Auto) 2020 1000/[place] [place] [address] 3:40am Basophils # Parker 0.07 0.0-0.1 MAIN LAB , [address] [place] [address] (Auto) 2019 1000/[place]3 [place] [address] 12:01pm Basophils # June 0.08 0.0-0.1 MAIN LAB , [address] [place] [address] (Auto) 2019 1000/mm3 [place] [address] 12:25am Basophils # April 08, 0.06 0.0-0.1 MAIN LA B, [address] [place] [address] (Auto) 2019 1000/mm3 [place] [address] 12:03pm Absolute December 0.0 0-1 MAIN LAB, [address] [place] [address] [place] [address] Granulocyte 3:40am (auto Absolute August 0.1 0-1 MAIN LAB, [address] [place] [address] [place] [address] Granulocyte 12:01pm (auto Absolute June 0.1 0-1 MAIN LAB, [address] [place] [address] Immature 2019 [place] [address] Granulocyte 12:25am (auto Absolute April 08, 0.1 0-1 MAIN LAB, [address] [place] [address] Immature 2019 [place] [address] Granulocyte 12:03pm (auto Differential December Automated MAIN LA B, [address] [place] [address] [place] [address] 3:40am Differential August Automated MAIN LA B, [address] [place] [address] [place] [address] 12:01pm Differential June Automated MAIN LA B, [address] [place] [address] Method 2019 [place] [address] 12:25am Differential April 08, Automated MAIN L AB, [address] [place] [address] Method 2019 [place] [address] 12:03pm Sodium Level December 140 mmol/L 137-145 MAIN L AB, [address] [place] [address] [place] [address] 3:40am Sodium Level August 137 mmol/L 137-145 MAIN L AB, [address] [place] [address] [place] [address] 12:01pm Sodium Level June 138 mmol/L 137-145 MAIN L AB, [address] [place] [address] 2019 [place] [address] 12:25am Potassium December 3.5 mmol/L 3.6-5.0 MAIN LAB, [address] [place] [address] [place] [address] 3:40am Potassium August 4.3 mmol/L 3.6-5.0 MAIN LAB, [address] [facility] [address] [place] [address] 12:01pm Potassium June 3.6 mmol/L 3.6-5.0 MAIN LAB, [address] [place] [address] 2019 [place] [address] 12:25am Chloride December 105 mmol/L 98-107 MAIN LAB, [address] [facility] [address] [place] [address] 3:40am Chloride August 105 mmol/L 98-107 MAIN LAB, [address] [facility] [address] [place] [address] 12:01pm Chloride June 103 mmol/L 98-107 MAIN LAB, [address] [place] [address] 2019 [place] [address] 12:25am Carbon December 29 mmol/L - MAIN LAB, [address] [place] [address] [facility] [facility] [address] 3:40am Carbon August 26 mmol/L - MAIN LAB, [address] [place] [address] [place] [address] 12:01pm Carbon June 29 mmol/L -30 MAIN LAB, [address] [place] [address] Dioxide Level 2019 [place] [address] 12:25am Anion Gap December 1403-25 MAIN LAB, [address] [place] [address] [place] [address] 3:40am Anion Gap August 1503-25 MAIN LAB, [address] [place] [address] [place] [address] 12:01pm Anion Gap June 1503-25 MAIN LAB, [address] [place] [address] 2019 [place] [address] 12:25am Blood Urea December 11 mg/dL 05-05 MAIN LAB, [address] [facility] Nitrogen [address] [place] [address] 3:40am Blood Urea August 12 mg/dL 05-05 MAIN LAB, [address] [place] [address] [place] [address] 12:01pm Blood Urea June 13 mg/dL 05-05 MAIN LAB, [address] [place] [address] 2019 [place] [address] 12:25am Creatinine December 0.85 mg/dL 0.66-1.25 MAIN LAB , [address] [place] [address] [place] [address] 3:40am Creatinine August 0.95 mg/dL 0.66-1.25 MAIN LAB , [address] [place] [address] [place] [address] 12:01pm Creatinine June 0.97 mg/dL 0.66-1.25 MAIN LAB , [address] [place] [address] 2019 [place] [address] 12:25am Glomerular December > 60 >60.0 MAIN LAB, [address] [place] [address] Filtration 2020 mL/[place] [address] Rate Calc 3:40am Glomerular August > 60 >60.0 MAIN LAB, [address] [place] [address] Filtration 2019 mL/[place] [address] Rate Calc 12:01pm Glomerular June > 60 >60.0 MAIN LAB, [address] [place] [address] Filtration 2019 mL/[place] [address] Rate Calc 12:25am Glucose Level December 121 mg/dL 70-100 MAIN L AB, [address] [place] [address] [place] [address] 3:40am Glucose Level August 101 mg/dL 70-100 MAIN L AB, [address] [place] [address] [place] [address] 12:01pm Glucose Level June 125 mg/dL 70-100 MAIN L AB, [address] [place] [address] 2019 [place] [address] 12:25am Calcium Level December 8.5 mg/dL 8.4-10.2 MAIN L AB, [address] [place] [address] [place] [address] 3:40am Calcium Level August 9.4 mg/dL 8.4-10.2 MAIN L AB, [address] [place] [address] [place] [address] 12:01pm Calcium Level June 9.1 mg/dL 8.4-10.2 MAIN L AB, [address] [place] [address] 2019 [place] [address] 12:25am Calcium August 9.6 mg/dL 8.4-10.2 MAIN LAB, [address] [place] [address] [address] Albumin 12:01pm Calcium October 9.3 mg/dL 8.4-10.2 MAIN LAB, [address] [place] [address] [place] [address] Albumin 12:25am Magnesium December 2.0 mg/dL 1.6-2.3 MAIN LAB, [address] [place] [address] Level 2020 [place] [address] 3:40am Total August 0.5 mg/dL 0.2-1.3 MAIN LAB, [address] [place] [address] [place] [address] 12:01pm Total June 0.3 mg/dL 0.2-1.3 MAIN LAB, [address] [place] [address] Bilirubin 2019 [place] [address] 12:25am Aspartate August 34 U/L MAIN LAB, [address] [place] [address] [place] [address] (AST/SGOT) 12:01pm Aspartate June 34 U/L MAIN LAB, [address] [place] [address] Amino Transf 2019 [facility] [place] [address] (AST/SGOT) 12:25am Alanine August 50 U/L <50 As of 01/09/20, MAIN L AB, [address] [place] [address] Aminotransfer 2019 [place] [address] ase 12:01pm Range for (ALT/SGPT) ALT/SGPT for adult patients has been updated. The Reference Range for ALT/SGPT has not been established for patients <18 years of age. Alanine June 48 U/L <50 As of 01/09/20, MAIN L AB, [address] [place] [address] [address]otransfer [address] [place] [facility] [place] [address] ase 12:25am Range for (ALT/SGPT) ALT/SGPT for adult patients has been updated. The Reference Range for ALT/SGPT has not been established for patients <18 years of age. Troponin I December < 0.012 0-0.034 Reference Range: MA IN LAB, [address] [place] [address] 2020 ng/mL <0.034 ng/mL [place] [facility] [place] [address] 3:40am Cut-off 0.120 ng/mLThe results of this assay can be falsely decreased in patients who consume Biotin. Troponin I June < 0.012 0-0.034 Reference Range: MA IN LAB, [address] [place] [address] 2019 ng/mL <0.034 ng/mL AMI [facility] [address] 12:25am Cut-off 0.120 ng/mLThe results of this assay can be falsely decreased in patients who consume Biotin. Total Protein August 7.3 g/dL 6.3-8.2 MAIN L AB, [address] [place] [address] 2019 [facility] [address] 12:01pm Total Protein June 7.4 g/dL 6.3-8.2 MAIN L AB, [address] [place] [address] 2019 [facility] [address] 12:25am Albumin August 4.0 g/dL 3.5-5.0 MAIN LAB, [address] [place] [address] 2019 [facility] [address] 12:01pm Albumin June 4.1 g/dL 3.5-5.0 MAIN LAB, [address] [place] [address] 2019 [facility] [address] 12:25am Cholesterol August 229 mg/dL 59-199 MAIN LAB , [address] [place] [address] 2019 [facility] [address] 12:01pm HDL August 33 mg/dL 40-60 The National MAIN LA B, [address] [place] [address] [facility] [address] 12:01pm Education Program (NCEP) has set the following guidelines (reference values) for cholesterol, HDL:Low HDL: <40 mg/dLNormal: 40-60 mg/dLDesirable: >60 mg/dL LDL August 145.0 0-129 MAIN LAB, [address] [place] [address] Cholesterol 2019 mg/dL [facility] [address] 12:01pm VLDL August 51.0 mg/dL 0-32 MAIN LAB, [address] [place] [address] Cholesterol 2019 [facility] [address] 12:01pm Cholesterol/H August 6.93 0-3.9 MAIN L AB, [address] [place] [address] DL Ratio 2019 [facility] [address] 12:01pm Triglycerides August 255 mg/dL 0-149 MAIN L AB, [address] [place] [address] 2019 [facility] [address] 12:01pm Alkaline August 103 U/L 38-126 MAIN LAB, [address] [place] [address] [place] [address] 12:01pm Alkaline June 92 U/L 38-126 MAIN LAB, [address] [facility] [address] [place] [address] 12:25am Thyroid August 1.89 mlU/L 0.47-4.68 The results of MAIN LAB, [address] [facility] Stimulating [address] [place] [address] Hormone (TSH) 12:01pm be falsely decreased in patients who consume Biotin. SARS-CoV-2 January 19 Negative Negative This test is MAIN L AB, [address] [facility] RNA (RT-PCR) 2020 [place] [address] 1:00pm under the Food and Drug Administration's [...] sheets for providers can be found at: [employer]/ 7517/downloadFac t sheets for patients can be found at: [employer]/ 2592/download SARS-CoV-2 November Negative This test is MAIN L AB, [address] [facility] RNA (RT-PCR) 2020 [place] [address] 11:00am under the Food and Drug Administration's [...] sheets for providers can be found at: [employer]/ 3263/downloadFac t sheets for patients can be found at: [employer]/ 8681/download Diagnostic Imaging Reports Report Dictated Date/Time Dictated By Status Radiology Report April 08, 2020 10:52am Tori Millan MD co mpleted [facility] ULTRASOUND REPORT PATIENT NAME: [...] 2020 11:17am Tori Millan MD co mpleted [facility] RADIOLOGY REPORT PATIENT NAME: YOLANDA KO 15 DATE OF : 1975 ATTENDING/ER PHYSICIAN: Carolina perez BIOCHEMISTRY PROFESSOR ER/ATTENDING PHYSICIAN: PRIMARY CARE PHYS: [place] [...] by Tori hart MD in OV> 04/08/20 111 Radiology Report April 08, 2020 11:18am Tori Millan MD co mpleted [facility] RADIOLOGY REPORT PATIENT NAME: YLOANDA KO 13 DATE OF : 1975 ATTENDING/ER PHYSICIAN: Carolina perez BIOCHEMISTRY PROFESSOR ER/ATTENDING PHYSICIAN: PRIMARY CARE PHYS: [place] [...] signed by Tori hart MD in OV> 04/08/206 Radiology Report April 23, 2020 9:27am Tori Millan MD c ompleted [facility] ULTRASOUND REPORT PATIENT NAME: [...] 04, 2020 2:34pm Jaye Scott MD completed [facility] ULTRASOUND REPORT PATIENT NAME: YOLANDA OK 15 DATE OF : 1975 ATTENDING/ER PHYSICIAN: Jerome ruiz MD ER/ATTENDING PHYSICIAN: PRIMARY CARE PHYS: Carolina Aguirre BIOCHEMISTRY PROFESSOR ADMITTING PHYSICIAN: CONSULTING PHYSICIAN: PROCEDURE DATE: 06/04/20 [...] 10, 2020 11:49pm Roscoe Guerrero MD comp [facility] EKG PATIENT NAME: YOLANDA KO 13 DATE OF : 1975 ATTENDING PHYSICIAN: PRIMARY CARE PHYS: Carolina Aguirre BIOCHEMISTRY PROFESSOR DICTATING PHYSICIAN: Roscoe Guerrero MD REPORT STATUS: [...] August 23, 2020 12:30pm Mario Guzmán completed [facility] CAT SCAN REPORT PATIENT NAME: [...] 27, 2020 3:01pm Tori Millan MD completed [facility] ULTRASOUND REPORT PATIENT NAME: [...] December 23, 2020 3:28am Mario Belcher completed [facility] EKG PATIENT NAME: YOLANDA KO [...] No significant change was found Confirmed by Deamrco Wyatt ([id number]) on 12/23/2020 4:57:59 AM Referred By: Demarco Wyatt Confirm ed By:Demarco Wyatt 12/23/20 0458 Colonoscopy January 25, 2021 2:02pm Marty Sweet MD [place] [address] OPERATIVE PROCEDURE REPORT PATIENT: Yolanda oK DATE: 01/25/2021 MR# [id number] PROCEDURE: Colonoscopy, diagnostic VISIT ID: [id number] ENDOSCOPIST: Dr. Renzo Sweet MD BIRTHDATE: 1975 CLAIM APPROVER: Martín Iraheta rn GENDER: male INDICATIONS: Diagnostic colonscopy and Constipation MEDICATIONS: See anesthesia notes MEDICATION START TIME: MD OUT TIME: DESCRIPTION OF PROCEDURE: After the ris ks benefits and alternatives of the procedure were thoroughly explained, in formed consent was obtained. Digital rectal exam performed and revealed no a bnormalities of the rectum. The [id number] ([id number]) endoscope was intro duced through the anus [...] complicati ons. IMPRESSION: Normal colonoscopy RECOMMENDATIONS: Call [phone] for prob lems REPEAT EXAM: Return in 10 years Colonos copy or as needed for changes.. CC: jJ Lopez Jr eSigned: Dr. Renzo Sweet MD 1 2:04 PM Name: Yolanda Ko, [id number] Radiology Report February 01, 2021 4:27pm Kenzie Padgett MD [facility] ULTRASOUND REPORT PATIENT NAME: [...] [facility] No O ctober 2018 1:44pm Pt has a Living Will? No June 25, 2019 1:44pm Do we have a copy on file here at [facility]? No O ctober 2018 1:44pm Pt has a Power of Scrap Cutter? No June 1:44pm Do we have a copy on file here at [facility]? No O ctober 2018 1:44pm Chief Complaint [...] rectu m epididymitis Follow up EYE COMPLAINT/SOB Reason for Visit Epididymo-orchitis Epididymo-orchitis Epididymo-orchitis Change in bowel function Morbid obesity due to excess calories Smoker Epididymo-orchitis Encounters Encounter Location(s) Arrival/Admit Discharge/Depart Provider(s ) Date Date Departed [facility] April 08, 2020 April 08, 2020 null Emergency Medical 12:35am 1:22am Center-Emergency Department Departed [facility] April 08, 2020 April 08, 2020 null Emergency Medical 10:03am 12:39pm Center-Emergency Department Departed [facility] April 08, 2020 April 08, 2020 Tanner Aguirre [facility] 10:06am 10:07am , BIOCHEMISTRY PROFESSOR [facility] Departed [facility] April 08, 2020 April 08, 2020 null Emergency Medical 9:44pm 10:10pm Center-Emergency Department Departed [facility] April 09, 2020 April 09, 2020 Jerome Joshi Physician/Prov Medical 8:23am 9:40am , MD pricer Office [facility] Visit patternmaker sample Services Departed [facility] April 23, 2020 April 23, 2020 Jerome younger [facility]-DI 8:43am 8:44am MD [facility] Departed [facility] June 04June 04, 2020 Jerome cordova [facility]DI 2019 2:17pm 2:18pm MD [facility] Departed [facility] June 10, 2020 June 11, 2020 null Emergency Medical 11:46pm 1:27am Center-Emergency Department Departed [facility] June 18, 2020 June 18, [address] [facility] 12:10pm 12:11pm Malick cazares [facility] Departed [facility] June 29, June 29, 2020 Jerome Joshi Physician/[facility] Medical 2019 2:41pm 3:05pm MD ross Office [facility] Visit patternmaker sample Services Departed [facility] August 20, August 20, 2020 Quinn Lopez JR, [facility] Medical 2019 5:17pm 5:18pm DO [facility] Departed [facility] August 23, August 23, 2020 Quinn Lopez JR, [facility]-DI 2019 12:13pm 12:14pm DO [facility] Departed [facility] August 27, August 27, 2020 Jerome mao [facility] 2019 3:26pm 3:27pm MD [facility] Departed [facility] September 17, 2020 September 17, 2020 Dedra Eastman Physician/Prov Medical 3:47pm 4:46pm BRENDA ider Office Center-[facility] Visit Medicine Departed [facility] September 24, September 24, 2020 Jerome Joshi Physician/Prov Medical 2020 12:32pm 12:54pm MD ross [facility] Visit patternmaker sample Services Departed [facility] December 07, 2020 December 07, 2020 Melody Robles Clinical Medical 7:45am 7:46am [facility] Departed [facility] December 23, 2020 December 23, 2020 null Emergency Medical 3:24am 5:05am Center-Emergency Department Departed [facility] January 19, 2021 January 19, 2021 [place] [facility] 5:02am 5:03am MD Micki [facility] Departed [facility] January 25, 2021 January 25, 2021 [place] [facility] 12:06pm 3:09pm MD Micki [facility] Departed [facility] February 01, 2021 February 01, 2021 Jerome velez [facility]-DI 3:29pm 3:30pm MD [facility] Departed [facility] February 10, 2021 February 10, 2021 Jerome velez Physician/Prov Medical 2:44pm 3:07pm MD ider Office [facility] 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 Immunizations Immunization Event Not Given Dose Colorist Lot Number Vac cine Date Reason Number Informatio n Statement (VIS) Detail Covid-January 07mcg/0.3ml 2020 Covid-January 19mcg/0.3ml 2020 Pfizer Mental Status Observation Response Date Recorded Comprehension Ability Understands Concepts February 22, 2021 1 :05pm Mood/Behavior Appropriate February 22, 2021 1:05 pm Comprehension Ability Understands Concepts April 08, 2020 1 2:50am Mood/Behavior Appropriate April 08, 2020 12:5 0am Medical Equipment No Medical Equipment Information available Insurance Providers Guarantor YOLANDA Tai KO Address [address] [place] [address] Contact Info. Home Phone: Payer Policy Id Coverage Id Subscriber's Subscriber Id Effective E xpiration Name Date Date [place]ICA[place] OF [id number] YOLANDA KO [id number] [place] SELF PAY Self N/A Plan of Treatment [...] Work Phone: Alicia FUENTES JR, DO 26 [facility] [phone] Jj Lopez Work Phone: Alicia FUENTES JR, DO 26 [facility] [place] [address] 8 A Timothy Work Phone: [address] [place] [address] [place] , BIOCHEMISTRY PROFESSOR [facility] [address] A Timothy Work Phone: [address] [place] , BIOCHEMISTRY PROFESSOR [facility] [address] Jerome Willoughby Work Phone: [facility] Urology MD Adi 1 [facility] , [facility] [address] Town Out Future Procedures Future procedure information [...] coronavirus ([facility]) High Blood Pressure (DC) Conjunctivitis ([facility]) ED COVID 19 General Instructions- decrease the spread of coronavirus ([facility]) Social History Smoking Status Status Date of Observation Smokes tobacco daily (finding) February 22, 2021 1:25pm Observation Status Observation Response Date of Response Alcohol Use Yes February 22, 2021 1:25 pm alcohol intake frequency holidays/special occasions only Blake e 2020 1:25pm Substance/Street Drug Use Yes February 22 1:25pm Substance Use Treatment No February 22, 2021 1:25pm substance use type marijuana February 22, 2021 1:25 pm Smoking Status Current every day smoker February 22, 2021 1:25pm Assigned Sex Male Vital Signs Vital Reading [...] Mass Index) 56.2 kg/m2 January 13, 2 8:40am Heart Rate 92 /min 60-100 February [...] 101 mm[Hg] 50-85 February 22, 2021 12:55pm Hospital Discharge Instructions
--- OUTSIDE RECORDS SUMMARY | 2022-03-21 09:33 | XMS_ITS | Continuity of Care Document ---
:1975 Author Organization [facility] Address [address] [place] [address] Phone Care Team Providers Name Role Phone [...] Active 300 MG PO THREE March TIMES 2019 12:45am Ibuprofen Active 600 [...] April 08, 9.22 4.8-10.8 MAIN LA B, [address] [place] [address] 2019 1000/mm3 [place] [address] 12:03pm White Blood June 7.25 4.8-10.8 MAIN LAB , [address] [place] [address] 2018 1000/mm3 [facility] [place] [address] 1:32pm Red Blood April 08, 5.22 M/mm3 4.70-6.00 MAIN LAB , [address] [place] [address] 2019 [facility] [address] 12:03pm Red Blood June 5.10 M/mm3 4.70-6.00 MAIN LAB, [address] [place] [address] 2018 [place] [address] 1:32pm Hemoglobin April 08, 14.7 g/dL 14.0-18.0 MAIN LAB , [address] [place] [address] 12:03pm Hemoglobin June 14.2 g/dL 14.0-18.0 MAIN LAB, [address] [place] [address] 2018 [place] [address] 1:32pm Hematocrit April 08, 45.9 % 42-52 MAIN LAB , [address] [place] [address] 12:03pm Hematocrit June 43.7 % 42-52 MAIN LAB, [address] [place] [address] 2018 [place] [address] 1:32pm Mean April 08, 87.9 fL 80.0-94.0 MAIN LAB, [address] [place] [address] Corpuscular 2019 [place] [address] Volume 12:03pm Mean June 85.7 fL 80.0-94.0 MAIN LAB, [address] [place] [address] Corpuscular 2018 [facility] [place] [address] Volume 1:32pm Mean April 08, 28.2 pg 27-31 MAIN LAB, [address] [place] [address] Corpuscular 2019 [place] [address] Hemoglobin 12:03pm Mean June 27.8 pg 27-31 MAIN LAB, [address] [place] [address] Corpuscular 2018 [facility] [place] [address] Hemoglobin 1:32pm Mean June 32.5 g/dL 33-37 MAIN LAB, [address] [place] [address] [place] [address] Hemoglobin 1:32pm Concent Mean April 08, 32.0 g/dL MAIN LAB, [address] [place] [address] Corpuscular [address] [place] [address] Hemoglobin 12:03pm Concent Red Cell June 13.6 % 11.5-14.5 MAIN LAB, [address] [place] [address] [place] [address] Width 1:32pm Red Cell April 08, 14.0 % 11.5-14.5 MAIN LAB, [address] [place] [address] Distribution [address] [place] [address] Width 12:03pm Platelet Count April 08, 284 140-440 MAIN LAB, [address] [place] [address] 2019 1000/mm3 [place] [address] 12:03pm Platelet Count June 249 140-440 MAIN LAB, [address] [place] [address] 2018 1000/mm3 [place] [address] 1:32pm Mean Platelet June 10.4 fL 7.4-10.4 MAIN L AB, [address] [place] [address] [place] [address] 1:32pm Mean Platelet April 08, 10.4 fL 7.4-10.4 MAIN LAB, [address] [place] [address] Volume 2019 [place] [address] 12:03pm Neutrophils June 59.3 % 40.0-72.0 MAIN LAB , [address] [place] [address] (%) (Auto) 2018 [place] [address] 1:32pm Neutrophils April 08, 60.7 % 40.0-72.0 MAIN LA B, [address] [place] [address] (%) (Auto) 2019 [place] [address] 12:03pm Lymphocytes April 08, 28.7 % 17-45 MAIN LA B, [address] [place] [address] (%) (Auto) 2019 [place] [address] 12:03pm Lymphocytes June 31.0 % 17-45 MAIN LAB , [address] [place] [address] (%) (Auto) 2018 [place] [address] 1:32pm Monocytes (%) April 08, 6.4 % 3-11 MAIN LAB, [address] [place] [address] (Auto) 2019 [place] [address] 12:03pm Monocytes (%) June 6.6 % 3-11 MAIN L AB, [address] [place] [address] (Auto) 2018 [place] [address] 1:32pm Eosinophils June 1.8 % 0-3 MAIN LAB , [address] [place] [address] (%) (Auto) [address] [place] [address] 1:32pm Eosinophils April 08, 2.7 % 0-3 MAIN LA B, [address] [place] [address] (%) (Auto) [address] [place] [address] 12:03pm Basophils (%) April 08, 0.7 % 0-1 MAIN LAB, [address] [place] [address] (Auto) 2019 [place] [address] 12:03pm Basophils (%) June 0.7 % 0-1 MAIN L AB, [address] [place] [address] (Auto) 2018 [place] [address] 1:32pm Immature April 08, 0.8 % 0-1 MAIN LAB, [address] [place] [address] Granulocyte % 2019 [place] [address] (Auto) 12:03pm Immature June 0.6 % 0-1 MAIN LAB, [address] [place] [address] Granulocyte % 2018 [place] [address] (Auto) 1:32pm Neutrophils # June 4.30 1.4-6.5 MAIN L AB, [address] [place] [address] (Auto) 2018 1000/[place]3 [place] [address] 1:32pm Neutrophils # April 08, 5.60 1.4-6.5 MAIN LAB, [address] [place] [address] (Auto) 2019 1000/mm3 [place] [address] 12:03pm Lymphocytes # April 08, 2.65 1.2-3.4 MAIN LAB, [address] [place] [address] (Auto) 2019 1000/mm3 [place] [address] 12:03pm Lymphocytes # June 2.25 1.2-3.4 MAIN L AB, [address] [place] [address] (Auto) 2018 1000/[place]3 [place] [address] 1:32pm Monocytes # June 0.48 0.0-0.8 MAIN LAB , [address] [place] [address] (Auto) 2018 1000/[place]3 [place] [address] 1:32pm Monocytes # April 08, 0.59 0.0-0.8 MAIN LA B, [address] [place] [address] (Auto) 2019 1000/mm3 [place] [address] 12:03pm Eosinophils # June 0.13 0.0-0.7 MAIN L AB, [address] [place] [address] (Auto) 2018 1000/[place]3 [place] [address] 1:32pm Eosinophils # April 08, 0.25 0.0-0.7 MAIN LAB, [address] [place] [address] (Auto) 2019 1000/mm3 [place] [address] 12:03pm Basophils # June 0.05 0.0-0.1 MAIN LAB , [address] [place] [address] (Auto) 2018 1000/[place]3 [place] [address] 1:32pm Basophils # April 08, 0.06 0.0-0.1 MAIN LA B, [address] [place] [address] (Auto) 2019 1000/mm3 [place] [address] 12:03pm Absolute April 08, 0.1 0-1 MAIN LAB, [address] [place] [address] Immature 2019 [place] [address] Granulocyte 12:03pm (auto Absolute June 0.0 0-1 MAIN LAB, [address] [place] [address] [place] [address] Granulocyte 1:32pm (auto Differential June Automated MAIN LA B, [address] [place] [address] [place] [address] 1:32pm Differential April 08, Automated MAIN L AB, [address] [place] [address] Method 2019 [place] [address] 12:03pm Sodium Level June 137 mmol/L 137-145 MAIN L AB, [address] [place] [address] [place] [address] 1:32pm Potassium June 3.8 mmol/L 3.6-5.0 MAIN LAB, [address] [place] [address] [place] [address] 1:32pm Chloride Level June 104 mmol/L 98-107 MAIN LAB, [address] [place] [address] [place] [address] 1:32pm Carbon Dioxide June 23 mmol/L 22-30 MAIN LAB, [address] [place] [address] [place] [address] 1:32pm Anion Gap June 10 7-16 MAIN LAB, [address] [place] [address] [place] [address] 1:32pm Blood Urea June 12 mg/dL 8-26 MAIN LAB, [address] [facility] Nitrogen [address] [place] [address] 1:32pm Creatinine June 0.82 mg/dL 0.66-1.25 MAIN LAB , [address] [place] [address] [place] [address] 1:32pm Glomerular June > 60 mL/min >60.0 MAIN LA B, [address] [place] [address] [place] [address] Rate Calc 1:32pm Glucose Level June 99 mg/dL 70-100 MAIN L AB, [address] [place] [address] [place] [address] 1:32pm Calcium Level June 8.5 mg/dL 8.4-10.2 MAIN L AB, [address] [place] [address] [place] [address] 1:32pm Troponin I June < 0.012 0-0.034 Reference MAIN LAB, [address] [place] [address] 2018 ng/mL Range: [place] [address] 1:32pm <0.034 ng/mL AMI Cut-off 0.120 ng/mLTh e results of this assay can be falsely decreased in patients who consume Biotin. Diagnostic Imaging Reports Report Dictated Date/Time Dictated By Status Electrocardiogram June 25, 2019 1:07pm Ulises Young MD [facility] EKG PATIENT NAME: YOLANDA FANG DATE OF [...] June 25, 2019 1:52pm Mario Gotti completed [facility] RADIOLOGY REPORT PATIENT NAME: YOLANDA FANG [...] 2020 10:52am Tori Millan MD co mpleted [facility] ULTRASOUND REPORT PATIENT NAME: YOLANDA FANG [...] 2020 11:17am Tori Millan MD co mpleted [facility] RADIOLOGY REPORT PATIENT NAME: YOLANDA FANG 15 DATE OF : 1975 ATTENDING/ER PHYSICIAN: Carolina perez BACKHAUL DRIVER ER/ATTENDING PHYSICIAN: PRIMARY CARE PHYS: Out Town [...] 2020 11:18am Tori Millan MD co mpleted [facility] RADIOLOGY REPORT PATIENT NAME: YOLANDA FANG 15 DATE OF : 1975 ATTENDING/ER PHYSICIAN: Carolina perez BACKHAUL DRIVER ER/ATTENDING PHYSICIAN: PRIMARY CARE PHYS: Out Town [...] [facility] No O ctober 2018 1:44pm Pt has a Living Will? No June 25, 2019 1:44pm Do we have a copy on file here at [facility]? No O ctober 2018 1:44pm Pt has a Power of [place] Driver? No June 1:44pm Do we have a copy on file here at [facility]? No O ctober 2018 1:44pm Chief Complaint and Reason for Visit Chief Complaint Back Up TESTICLE PAIN FOLLOW UP US RT HIP PAIN; LBP TESTICULAR COMPLAINT Encounters Encounter Location(s) Arrival/Admit Date Discharge/Depart Provi ulysses(s) Date Departed [facility] June 25, 2019 June 25, 2019 [facility] Emergency Medical 1:09pm 3:45pm Center-Emergency Department Departed [facility] April 08, 2020 April 08, 2020 [facility] Emergency Medical 12:35am 1:22am Center-Emergency Department Departed [facility] April 08, 2020 April 08, 2020 [facility] Emergency Medical 10:03am 12:39pm Center-Emergency Department Registered [facility] April 08, 2020 [facility]DI 10:06am SRIDEVI Figueroa [facility] Departed [facility] April 08, 2020 April 08, 2020 [facility] Emergency Medical 9:44pm 10:10pm Center-Emergency Department Assessments [...] available Insurance Providers Guarantor YOLANDA FANG Address [address] [place] [id number] Contact Info. Home Phone: Payer Policy Id Coverage Id Subscriber's Subscriber Id Effective E xpiration Name Date Date MEDICAID OF Verified Verified Verified [place] SELF PAY Self N/A Plan of Treatment Future Tests Future scheduled test information is unavailable Pending Tests Pending diagnostic test information is unavailable Future Visits Future appointment information is unavailable Referrals to Other Providers Reason for Referral Start Provider Provider Contact Provider Address Referral Date Information Pcp Estelita Aguirre Work Phone: [phone] Manuel Figueroa NP [facility] [address] [address] Willoughby Work Phone: [facility] Urology MD Adi 1 [facility] , [facility] [address] [address] Future Procedures Future procedure information is unavailable Future Medications Future medication information is unavailable Patient Instructions Epididymitis (DC) COVID 19 General Instructions- decrease the spread of coronavirus ([facility]) COVID 19 General Instructions- decrease the spread of coronavirus ([facility]) Social History Smoking Status Status Date of [...]
[2022-03-21 09:34] LABS: NT-proBNP 45 pg/mL (<300)
--- OUTSIDE RECORDS SUMMARY | 2022-03-21 09:34 | XMS_ITS | Continuity of Care Document ---
:1975 Author Organization [facility] Address [address] [place] [address] Phone Care Team Providers Name Role Phone PCP, of Choice Primary Care Provider Unavailable Allergies, Adverse Reactions, Alerts Allergen Type Severity Reaction Last Updated Verified Status cephalexin Allergy Yes Active Medications No medication information available. Problems Active Problems Medical Problem Onset Date Status Vaso-vagal reaction Active Procedures Procedure Date Performed Status Chest 2 vw June 25, 2019 completed Relevant Diagnostic Tests and/or Laboratory Data Laboratory Results Test Date/Time Result Interpretation Reference Result Perfo rming Range Comment Site White Blood June 7.25 4.8-10.8 MAIN LAB , [address] [place] [address] 2018 1000/mm3 [facility] 68026 1:32pm Red Blood June 5.10 M/mm3 4.70-6.00 MAIN LAB, [address] [place] [address] Count 2018 [facility] 85605 1:32pm Hemoglobin June 14.2 g/dL 14.0-18.0 MAIN LAB, [address] [place] [address] 2018 [facility] 30298 1:32pm Hematocrit June 43.7 % 42-52 MAIN LAB, [address] [place] [address] 2018 [facility] 12199 1:32pm Mean June 85.7 fL 80.0-94.0 MAIN LAB, [address] [place] [address] Corpuscular 2018 [facility] 81006 Volume 1:32pm Mean June 27.8 pg 27-31 MAIN LAB, [address] [place] [address] Corpuscular 2018 [facility] [address] Hemoglobin 1:32pm Mean June 32.5 g/dL 33-37 MAIN LAB, [address] [place] [address] [place] [address] Hemoglobin 1:32pm Concent Red Cell June 13.6 % 11.5-14.5 MAIN LAB, [address] [place] [address] Distribution 2018 [facility] [place] [address] Width 1:32pm Platelet Count June 249 140-440 MAIN LAB, [address] [place] [address] 2018 1000/mm3 [facility] 59194 1:32pm Mean Platelet June 10.4 fL 7.4-10.4 MAIN L AB, [address] [place] [address] Volume 2018 [place] [address] 1:32pm Neutrophils June 59.3 % 40.0-72.0 MAIN LAB , [address] [place] [address] (%) (Auto) 2018 [place] [address] 1:32pm Lymphocytes June 31.0 % 17-45 MAIN LAB , [address] [place] [address] (%) (Auto) 2018 [place] [address] 1:32pm Monocytes (%) June 6.6 % 3-11 MAIN L AB, [address] [place] [address] (Auto) 2018 [facility] [address]3465 1:32pm Eosinophils June 1.8 % 0-3 MAIN LAB , [address] [place] [address] (%) (Auto) 2018 [place] [address] 1:32pm Basophils (%) June 0.7 % 0-1 MAIN L AB, [address] [place] [address] (Auto) 2018 [place] [address] 1:32pm Immature June 0.6 % 0-1 MAIN LAB, [address] [place] [address] Granulocyte % 2018 [facility] [place] [address] (Auto) 1:32pm Neutrophils # June 4.30 1.4-6.5 MAIN L AB, [address] [place] [address] (Auto) 2018 1000/mm3 [place] [address] 1:32pm Lymphocytes # June 2.25 1.2-3.4 MAIN L AB, [address] [place] [address] (Auto) 2018 1000/mm3 [place] [address] 1:32pm Monocytes # June 0.48 0.0-0.8 MAIN LAB , [address] [place] [address] (Auto) 2018 1000/mm3 [place] [address] 1:32pm Eosinophils # October 0.13 0.0-0.7 MAIN L AB, [address] [place] [address] (Auto) 2018 1000/mm3 [place] [address] 1:32pm Basophils # June 0.05 0.0-0.1 MAIN LAB , [address] [place] [address] (Auto) 2018 1000/mm3 [facility] [place] [address] 1:32pm Absolute October 0.0 0-1 MAIN LAB, [address] [place] [address] Immature 2018 [place] [address] Granulocyte 1:32pm (auto Differential June Automated MAIN LA B, [address] [place] [address] Method 2018 [place] [address] 1:32pm Sodium Level June 137 mmol/L 137-145 MAIN L AB, [address] [place] [address] 2018 [place] [address] 1:32pm Potassium June 3.8 mmol/L 3.6-5.0 MAIN LAB, [address] [place] [address] 2018 [place] [address] 1:32pm Chloride Level June 104 mmol/L 98-107 MAIN LAB, [address] [place] [address] 2018 [place] [address] 1:32pm Carbon Dioxide June 23 mmol/L 22-30 MAIN LAB, [address] [place] [address] 2018 [place] [address] 1:32pm Anion Gap June 10 7-16 MAIN LAB, [address] [place] [address] 2018 [place] [address] 1:32pm Blood Urea June 12 mg/dL 8-26 MAIN LAB, [address] [place] [address] [place] [place] [address] 1:32pm Creatinine June 0.82 mg/dL 0.66-1.25 MAIN LAB , [address] [place] [address] [place] [facility] [place] [address] 1:32pm Glomerular June > 60 mL/min >60.0 MAIN LA B, [address] [place] [address] [place] [address] Rate Calc 1:32pm Glucose Level June 99 mg/dL 70-100 MAIN L AB, [address] [place] [address] [place] [place] [address] 1:32pm Calcium Level June 8.5 mg/dL 8.4-10.2 MAIN L AB, [address] [place] [address] [place] [address] 1:32pm Troponin I June < 0.012 0-0.034 Reference MAIN LAB, [address] [facility] 2018 ng/mL Range: [place] [address] 1:32pm <0.034 ng/mL AMI Cut-off 0.120 ng/mLTh [...] Jaye reveles MD in OV> 06/25/19 1353 Chief Complaint and Reason for Visit Chief Complaint Back Up Encounters Encounter Location(s) Arrival/Admit Date Discharge/Depart Date Provider(s) Departed [facility] June 25, 2019 June 25, 2019 nu l Emergency Medical 1:09pm 3:45pm Center-Emergency Department Assessments No Assessments Information Available Functional Status Observation Response Date Recorded Living Situation Home June 25, 2019 3 :45pm Goals No Goals Information Available Mental Status No Mental Status Information Available Medical Equipment No Medical Equipment Information available Insurance Providers Guarantor YOLANDA FANG Address [address] [place] [id number] Contact Info. Home Phone: Payer Policy Id Coverage Id Subscriber's Subscriber Id Effective E xpiration Name Date Date SELF PAY Self N/A Plan of Treatment Future Tests Future scheduled test information is unavailable Pending Tests Pending diagnostic test information is unavailable Future Visits Future appointment information is unavailable Referrals to Other Providers Reason for Referral Start Provider Provider Contact Provider Address Referral Date Information Choice PCP of Future Procedures Future procedure information is unavailable Future Medications Future medication information is unavailable Patient Instructions Patient instructions are unavailable Social History Assigned Sex Male Vital Signs Vital Reading Result Reference Range Collection Date/ Time Weight 190.96 kg June 25 1:13pm Body Temperature 97.4 [degF] 97.6-99.6 June 25, 2 019 1:13pm Heart Rate 98 /min 60-100 June 25 3:45pm Respiratory rate 20 /min 12-24 June 25 2 019 3:45pm Oxygen saturation by Pulse 98 % 95-[facility] 3:45pm oximetry BP Systolic 130 mm[Hg] 100-140 June 25 3:45pm BP Diastolic 72 mm[Hg] 50-85 June 25 3:45pm Hospital Discharge Instructions Additional Instructions Be sure to drink plenty of fluids. Return to the ER for any worsening symptoms or concerns.
--- OUTSIDE RECORDS SUMMARY | 2022-03-21 09:34 | XMS_ITS | Continuity of Care Document ---
:1975 Author Organization [facility] Address [address] [place] [address] Phone Care Team Providers Name Role Phone Out of Town, Provider Primary Care Provider Unavailable Carolina Aguirre Attending Provider Carolina Aguirre Primary Care Provider Kwaku Joshi Attending Provider Carmen Bañuelos Attending Provider Allergies, Adverse Reactions, Alerts Allergen Type Severity Reaction Last Updated Verified Status cephalexin Allergy unknown June 29, 2020 2:44pm Yes Active Medications Medication Status Dose Units Route Directions Qty Days Start End Ins tructions Date Date Gabapentin Active 300 MG PO THREE TIMES Tonya A DAY 2019 12:45a m Ibuprofen Active 600 MG PO THREE TIMES Tonya A DAY 2019 12:45a m Levofloxacin Discontin 750 MG PO DAILY March ued 2019 1:03am 2:44pm Problems Active Problems Medical Problem Onset [...] 08, 2020 10:39am completed INTERFACE ELECTROCARDIOGRAM June 10, 2020 11:58pm [...] 2019 8:35am Urine Specific April 09, 1.025 [place] (Manual) 2019 8:35am POC Urine RBC April 09, Trace 2019 Intact 8:35am Urine pH (Manual) April 09, 5.5 2019 8:35am POC Urine Protein April 09, Negative Confirmation 2019 8:35am Urine April 09, 0.2 Urobilinogen 2019 (Manual) 8:35am Urine Nitrite April 09, Negative (Manual) 2019 8:35am Urine Leukocyte April 09, Negative Esterase (Manual) 2019 8:35am White Blood Count June 11.14 4.8-10.8 MA IN LAB, [address] [place] [address] 2019 1000/mm3 [facility] [address] 12:25am White Blood Count April 08, 9.22 4.8-10.8 M AIN LAB, [address] [place] [address] 2019 1000/mm3 [facility] [address] 12:03pm Red Blood Count June 5.37 M/mm3 4.70-6.00 LEDA N LAB, [address] [place] [address] 2019 [place] [address] 12:25am Red Blood Count April 08, 5.22 M/mm3 4.70-6.00 MA IN LAB, [address] [place] [address] 2020 [place] [address] 12:03pm Hemoglobin June 15.1 g/dL 14.0-18.0 MAIN LAB, [address] [place] [address] 2019 [place] [address] 12:25am Hemoglobin April 08, 14.7 g/dL 14.0-18.0 MAIN LAB , [address] [place] [address] 2020 [place] [address] 12:03pm Hematocrit June 46.7 % 42-52 MAIN LAB, [address] [place] [address] 2019 [place] [address] 12:25am Hematocrit April 08, 45.9 % 42-52 MAIN LAB , [address] [place] [address] 2020 [place] [address] 12:03pm Mean Corpuscular June 87.0 fL 80.0-94.0 LEDA N LAB, [address] [place] [address] Volume 2019 [place] [address] 12:25am Mean Corpuscular April 08, 87.9 fL 80.0-94.0 MA IN LAB, [address] [place] [address] Volume 2019 [place] [address] 12:03pm Mean Corpuscular June 28.1 pg 27-31 LEDA N LAB, [address] [place] [address] [place] [address] 12:25am Mean Corpuscular April 08, 28.2 pg 27-31 MA IN LAB, [address] [place] [address] [place] [address] 12:03pm Mean Corpuscular June 32.3 g/dL 33-37 LEDA N LAB, [address] [place] [address] [place] [address] Concent 12:25am Mean Corpuscular April 08, 32.0 g/dL 33-37 MA IN LAB, [address] [place] [address] [place] [address] Concent 12:03pm Red Cell June 14.1 % 11.5-14.5 MAIN LAB, [address] [place] [address] [facility] [place] [address] Width 12:25am Red Cell April 08, 14.0 % 11.5-14.5 MAIN LAB, [address] [place] [address] Distribution 2019 [facility] [place] [address] Width 12:03pm Platelet Count June 276 140-440 MAIN LAB, [address] [place] [address] 2019 1000/mm3 [place] [address] 12:25am Platelet Count April 08, 284 140-440 MAIN LAB, [address] [place] [address] 2019 1000/mm3 [place] [address] 12:03pm Mean Platelet June 10.3 fL 7.4-10.4 MAIN L AB, [address] [place] [address] Volume 2019 [place] [address] 12:25am Mean Platelet April 08, 10.4 fL 7.4-10.4 MAIN LAB, [address] [place] [address] 2019 [place] [address] 12:03pm Neutrophils (%) June 70.9 % 40.0-72.0 MAIN LAB, [address] [place] [address] (Auto) 2019 [place] [address] 12:25am Neutrophils (%) April 08, 60.7 % 40.0-72.0 LEDA N LAB, [address] [place] [address] (Auto) 2019 [facility] [address] 12:03pm Lymphocytes (%) June 20.0 % 17-45 MAIN LAB, [address] [place] [address] (Auto) 2019 [place] [address] 12:25am Lymphocytes (%) April 08, 28.7 % 17-45 LEDA N LAB, [address] [place] [address] (Auto) 2019 [place] [address] 12:03pm Monocytes (%) June 6.3 % 3-11 MAIN L AB, [address] [place] [address] (Auto) 2019 [place] [address] 12:25am Monocytes (%) April 08, 6.4 % 3-11 MAIN LAB, [address] [place] [address] (Auto) 2019 [place] [address] 12:03pm Eosinophils (%) June 1.6 % 0-3 MAIN LAB, [address] [place] [address] (Auto) 2019 [place] [address] 12:25am Eosinophils (%) April 08, 2.7 % 0-3 LEDA N LAB, [address] [place] [address] (Auto) 2019 [place] [address] 12:03pm Basophils (%) June 0.7 % 0-1 MAIN L AB, [address] [place] [address] (Auto) 2019 [place] [address] 12:25am Basophils (%) April 08, 0.7 % 0-1 MAIN LAB, [address] [place] [address] (Auto) 2019 [place] [address] 12:03pm Immature June 0.5 % 0-1 MAIN LAB, [address] [place] [address] Granulocyte % 2019 . [facility] [place] [address] (Auto) 12:25am Immature April 08, 0.8 % 0-1 MAIN LAB, [address] [place] [address] Granulocyte % 2019 [facility] [place] [address] (Auto) 12:03pm Neutrophils # June 7.89 1.4-6.5 MAIN L AB, [address] [place] [address] (Auto) 2019 1000/mm3 [place] [address] 12:25am Neutrophils # April 08, 5.60 1.4-6.5 MAIN LAB, [address] [place] [address] (Auto) 2019 1000/mm3 [place] [address] 12:03pm Lymphocytes # June 2.23 1.2-3.4 MAIN L AB, [address] [place] [address] (Auto) 2019 1000/mm3 [place] [address] 12:25am Lymphocytes # April 08, 2.65 1.2-3.4 MAIN LAB, [address] [place] [address] (Auto) 2019 1000/mm3 [place] [address] 12:03pm Monocytes # June 0.70 0.0-0.8 MAIN LAB , [address] [place] [address] (Auto) 2019 1000/mm3 [place] [address] 12:25am Monocytes # April 08, 0.59 0.0-0.8 MAIN LA B, [address] [place] [address] (Auto) 2019 1000/mm3 [place] [address] 12:03pm Eosinophils # June 0.18 0.0-0.7 MAIN L AB, [address] [place] [address] (Auto) 2019 1000/mm3 [place] [address] 12:25am Eosinophils # April 08, 0.25 0.0-0.7 MAIN LAB, [address] [place] [address] (Auto) 2019 1000/mm3 [place] [address] 12:03pm Basophils # June 0.08 0.0-0.1 MAIN LAB , [address] [place] [address] (Auto) 2019 1000/mm3 [place] [address] 12:25am Basophils # April 08, 0.06 0.0-0.1 MAIN LA B, [address] [place] [address] (Auto) 2019 1000/mm3 [place] [address] 12:03pm Absolute Immature June 0.1 0-1 MA IN LAB, [address] [place] [address] Granulocyte (auto 2019 [place] [address] 12:25am Absolute Immature April 08, 0.1 0-1 M AIN LAB, [address] [place] [address] Granulocyte (auto 2019 [place] [address] 12:03pm Differential June Automated MAIN LA B, [address] [place] [address] Method 2019 [place] [address] 12:25am Differential April 08, Automated MAIN L AB, [address] [place] [address] Method 2019 [place] [address] 12:03pm Sodium Level June 138 mmol/L 137-145 MAIN L AB, [address] [place] [address] 2019 [place] [address] 12:25am Potassium Level June 3.6 mmol/L 3.6-5.0 LEDA N LAB, [address] [place] [address] 2019 [place] [address] 12:25am Chloride Level June 103 mmol/L 98-107 MAIN LAB, [address] [place] [address] 2019 [place] [address] 12:25am Carbon Dioxide June 29 mmol/L 22-30 MAIN LAB, [address] [place] [address] Level 2019 [place] [address] 12:25am Anion Gap June 6 7-16 MAIN LAB, [address] [place] [address] 2019 [place] [address] 12:25am Blood Urea June 13 mg/dL 8-26 MAIN LAB, [address] [place] [address] Nitrogen 2019 [place] [address] 12:25am Creatinine June 0.97 mg/dL 0.66-1.25 MAIN LAB , [address] [place] [address] 2019 [place] [address] 12:25am Glomerular June > 60 >60.0 MAIN LAB, [address] [place] [address] Filtration Rate 2019 mL/min [place] [address] Calc 12:25am Glucose Level June 125 mg/dL 70-100 MAIN L AB, [address] [place] [address] 2019 [place] [address] 12:25am Calcium Level June 9.1 mg/dL 8.4-10.2 MAIN L AB, [address] [place] [address] 2019 [place] [address] 12:25am Calcium Adjusted June 9.3 mg/dL 8.4-10.2 LEDA N LAB, [address] [place] [address] for Albumin 2019 [facility] [address] 12:25am Total Bilirubin June 0.3 mg/dL 0.2-1.3 MAIN LAB, [address] [place] [address] 2019 [place] [address] 12:25am Aspartate Amino June 34 U/L 17-59 MAIN LAB, [address] [place] [address] Transf (AST/SGOT) 2019 [place] [address] 12:25am Alanine June 48 U/L <50 As of MAIN LAB, [address] [place] [address] Aminotransferase 201901/09/20, the [place] [address] (ALT/SGPT) 12:25am Reference Range for ALT/SGPT for adult patients has been updated. The Reference Range for ALT/SGPT has not been established for patients <18 years of age. Troponin I June < 0.012 0-0.034 Reference MAIN LAB, [address] [place] [address] 2019 ng/mL Range: [place] [address] 12:25am <0.034 ng/mL AMI Cut-off 0.120 ng/mLThe results of this assay can be falsely decreased in patients who consume Biotin. Total Protein June 7.4 g/dL 6.3-8.2 MAIN L AB, [address] [place] [address] 2019 [place] [address] 12:25am Albumin June 4.1 g/dL 3.5-5.0 MAIN LAB, [address] [place] [address] 2019 [place] [address] 12:25am Alkaline June 92 U/L 38-126 MAIN LAB, [address] [place] [address] Phosphatase 2019 [place] [address] 12:25am Diagnostic Imaging Reports Report Dictated Date/Time Dictated By Status Radiology Report April 08, 2020 10:52am Tori Millan MD co mpleted [facility] ULTRASOUND REPORT PATIENT NAME: [...] 08, 2020 11:17am [facility] RADIOLOGY REPORT PATIENT NAME: YOLANDA FANG [...] 2020 11:18am Tori Millan MD co mpleted [facility] RADIOLOGY REPORT PATIENT NAME: YOLANDA FANG 15 DATE OF : 1975 ATTENDING/ER PHYSICIAN: Carolina perez NP ER/ATTENDING PHYSICIAN: PRIMARY CARE PHYS: Out [facility] ADMITTING PHYSICIAN: CONSULTING PHYSICIAN: PROCEDURE DATE: 04/08/20 [...] 2020 9:27am Tori Millan MD c ompleted [facility] ULTRASOUND REPORT PATIENT NAME: YOLANDA FANG 15 DATE OF : 1975 ATTENDING/ER PHYSICIAN: Jerome ruiz MD ER/ATTENDING PHYSICIAN: PRIMARY CARE PHYS: Carolina Aguirre [employer] ADMITTING PHYSICIAN: CONSULTING PHYSICIAN: PROCEDURE DATE: 04/23/20 [...] 04, 2020 2:34pm Jaye Scott MD completed [facility] ULTRASOUND REPORT [...] 10, 2020 11:49pm Roscoe Guerrero MD comp [facility] EKG PATIENT NAME: YOLANDA FANG 15 DATE OF : 1975 ATTENDING PHYSICIAN: PRIMARY CARE PHYS: Carolina Aguirre [employer] DICTATING PHYSICIAN: Roscoe Guerrero MD REPORT STATUS: [...] have a copy on file here at [facility]? No O ctober 2018 1:44pm Pt has a Living Will? No June 25, 2019 1:44pm Do we have a copy on file here at [facility]? No O ctober 2018 1:44pm Pt has a Power of Justice Professor? No June 1:44pm Do we have a copy on file here at [facility]? No O ctober 2018 1:44pm Chief Complaint and Reason for Visit Chief Complaint TESTICLE PAIN FOLLOW UP US RT HIP PAIN; LBP TESTICULAR COMPLAINT New Patient Orchitis and epididymitis Orchitis and epididymitis Chest Pain Other forms of dyspnea follow up Reason for Visit Epididymo-orchitis Epididymo-orchitis Encounters Encounter Location(s) Arrival/Admit Discharge/Depart Provider(s ) Date Date Departed [facility] April 08, 2020 April 08, 2020 [facility] Emergency Medical 12:35am 1:22am Center-Emergency Department Departed [facility] April 08, 2020 April 08, 2020 [facility] Emergency Medical 10:03am 12:39pm Center-Emergency Department Departed [facility] April 08, 2020 April 08, 2020 Manuel Figueroa [facility] 10:06am 10:07am SRIDEVI [facility] Departed [facility] April 08, 2020 April 08, 2020 [facility] Emergency Medical 9:44pm 10:10pm Center-Emergency Department Departed [facility] April 09, 2020 April 09, 2020 Jerome Joshi Physician/Prov Medical 8:23am 9:40am MD pricer Office [facility] Visit [facility] Departed [facility] April 23, 2020 April 23, 2020 Jerome younger [facility] 8:43am 8:44am MD [facility] Departed [facility] June 04June 04, 2020 Jerome cordova [facility] 2019 2:17pm 2:18pm MD [facility] Departed [facility] June 10, 2020 June 11, 2020 [facility] Emergency Medical 11:46pm 1:27am Center-Emergency Department Departed [facility] June 18, 2020 June 18, 2020 CARLOTTA Morales [facility] 12:10pm 12:11pm Malick cazares [facility] Departed [facility] June 29, June 29, 2020 Jerome Joshi Physician/Prov Medical 2019 2:41pm 3:05pm MD pricer Office [facility] Visit [facility] Recent Diagnosis Onset Date Epididymo-orchitis Epididymo-orchitis Assessments [...] available Insurance Providers Guarantor YOLANDA FANG Address [address] [place] [id number] Contact Info. Home Phone: Payer Policy Id Coverage Id Subscriber's Subscriber Id Effective E xpiration Name Date Date [place]ICA[place] OF [id number] YOLANDA FANG [id number] [place] SELF PAY Self N/A Plan of Treatment [...] Date Information A Timothy Work Phone: [address] sanjeev Figueroa , [employer] [place] [employer] [address] Manuel Aguirre Work Phone: [address] sanjeev Carolina , [employer] [place] [employer] [id number] Jerome Willoughby Work Phone: [facility] Urology MD Adi 1 [facility] , [facility] [place] [address] Town Out Future Procedures Future procedure information [...] Status Current every day smoker June 29 2:50pm Assigned Sex Male Vital Signs Vital Reading Result Reference Range Collection Date/ Time Weight 199.58 kg April 08, 2020 12:38am Body Temperature 98.0 [degF] 97.6-99.6 April 08, 2020 12:38am Heart Rate 109 /min 60-100 April 08, 2020 1:15am Respiratory rate 20 /min 12-24 April 08, 2020 1:15am Oxygen saturation by Pulse [...] 11 0 1:27am Respiratory rate 16 /min 12-June 11 [...]
--- OUTSIDE RECORDS SUMMARY | 2022-03-21 09:34 | XMS_ITS | Continuity of Care Document ---
:1975 Author Organization [facility] Address [address] [place] [address] Phone Care Team Providers Name Role Phone [...] Levofloxacin Discontin 500 MG [facility] er 2019, 8:34am 2019 [...] 2019 7:35am Urine Specific April 09, 1.025 [place] (Manual) 2019 7:35am POC Urine RBC April 09, Trace 2019 Intact 7:35am Urine pH (Manual) April 09, 5.5 2019 7:35am POC Urine Protein April 09, Negative Confirmation 2019 7:35am Urine April 09, 0.2 Urobilinogen 2019 (Manual) 7:35am Urine Nitrite April 09, Negative (Manual) 2019 7:35am Urine Leukocyte April 09, Negative Esterase (Manual) 2019 7:35am White Blood Count August 12.00 4.8-10.8 MA IN LAB, [address] [place] [address] 2019 1000/mm3 [facility] 710[address] 11:01am White Blood Count June 20.14 4.8-10.8 MA IN LAB, [address] [place] [address] 2019 1000/mm3 [facility] [address] 11:25pm White Blood Count April 08, 9.22 4.8-10.8 M AIN LAB, [address] [place] [address] 2019 1000/mm3 [facility] 10705 11:03am Red Blood Count August 5.37 M/mm3 4.70-6.00 LEDA N LAB, [address] [place] [address] 2019 [facility] 155[address] 11:01am Red Blood Count June 5.37 M/mm3 4.70-6.00 LEDA N LAB, [address] [place] [address] 2019 [facility] 51054 11:25pm Red Blood Count April 08, 5.22 M/mm3 4.70-6.00 MA IN LAB, [address] [place] [address] 2019 [facility] 72275 11:03am Hemoglobin August 15.1 g/dL 14.0-18.0 MAIN LAB, [address] [place] [address] 2019 [facility] 86735 11:01am Hemoglobin June 15.1 g/dL 14.0-18.0 MAIN LAB, [address] [place] [address] 2019 [facility] 23056 11:25pm Hemoglobin April 08, 14.7 g/dL 14.0-18.0 MAIN LAB , [address] [place] [address] [address] [place] [address] 11:03am Hematocrit August 47.3 % 42-52 MAIN LAB, [address] [place] [address] 2019 [facility] [place] [address] 11:01am Hematocrit June 46.7 % 42-52 MAIN LAB, [address] [place] [address] 2019 [facility] 79384 11:25pm Hematocrit April 08, 45.9 % 42-52 MAIN LAB , [address] [place] [address] [address] [place] [address] 11:03am Mean Corpuscular August 88.1 fL 80.0-94.0 LEDA N LAB, [address] [facility] Volume [address] [place] [address] 11:01am Mean Corpuscular June 87.0 fL 80.0-94.0 LEDA N LAB, [address] [facility] Volume [address] [place] [address] 11:25pm Mean Corpuscular April 08, 87.9 fL 80.0-94.0 MA IN LAB, [address] [facility] Volume [address] [place] [address] 11:03am Mean Corpuscular August 28.1 pg 27-31 LEDA N LAB, [address] [facility] Hemoglobin [address] [place] [address] 11:01am Mean Corpuscular June 28.1 pg 27-31 LEDA N LAB, [address] [place] [address] [place] [address] 11:25pm Mean Corpuscular April 08, 28.2 pg 27-31 MA IN LAB, [address] [facility] Hemoglobin [address] [place] [address] 11:03am Mean Corpuscular August 31.9 g/dL 33-37 LEDA N LAB, [address] [facility] Hemoglobin [address] [place] [address] Concent 11:01am Mean Corpuscular June 32.3 g/dL 33-37 LEDA N LAB, [address] [place] [address] [place] [address] Concent 11:25pm Mean Corpuscular April 08, 32.0 g/dL 33-37 MA IN LAB, 133 [facility] Hemoglobin [address] [place] [address] Concent 11:03am Red Cell August 14.0 % 11.5-14.5 MAIN LAB, [address] [facility] Distribution [address] [place] [address] Width 11:01am Red Cell June 14.1 % 11.5-14.5 MAIN LAB, [address] [facility] Distribution [address] [place] [address] Width 11:25pm Red Cell April 08, 14.0 % 11.5-14.5 MAIN LAB, [address] [facility] Distribution [address] [place] [address] Width 11:03am Platelet Count August 328 140-440 MAIN LAB, [address] [place] [address] 2019 1000/mm3 [facility] [place] [address] 11:01am Platelet Count June 276 140-440 MAIN LAB, [address] [place] [address] 2019 1000/mm3 [place] [address] 11:25pm Platelet Count April 08, 284 140-440 MAIN LAB, [address] [place] [address] 2019 1000/mm3 [place] [address] 11:03am Mean Platelet August 10.9 fL 7.4-10.4 MAIN L AB, [address] [place] [address] Volume 2019 [facility] [place] [address] 11:01am Mean Platelet June 10.3 fL 7.4-10.4 MAIN L AB, [address] [place] [address] Volume 2019 [place] [address] 11:25pm Mean Platelet April 08, 10.4 fL 7.4-10.4 MAIN LAB, [address] [place] [address] 2019 [facility] 84121 11:03am Neutrophils (%) August 62.1 % 40.0-72.0 MAIN LAB, [address] [place] [address] (Auto) 2019 [facility] [place] [address] 11:01am Neutrophils (%) June 70.9 % 40.0-72.0 MAIN LAB, [address] [place] [address] (Auto) 2019 [place] [address] 11:25pm Neutrophils (%) April 08, 60.7 % 40.0-72.0 LEDA N LAB, [address] [place] [address] (Auto) [address] [place] [address] 11:03am Lymphocytes (%) August 29.7 % 17-45 MAIN LAB, [address] [place] [address] (Auto) 2019 [facility] [place] [address] 11:01am Lymphocytes (%) June 20.0 % 17-45 MAIN LAB, [address] [place] [address] (Auto) [address] [place] [address] 11:25pm Lymphocytes (%) April 08, 28.7 % 17-45 LEDA N LAB, [address] [place] [address] (Auto) 2019 [place] [address] 11:03am Monocytes (%) August 5.9 % 3-11 MAIN L AB, [address] [place] [address] (Auto) 2019 . [place] [address] 11:01am Monocytes (%) June 6.3 % 3-11 MAIN L AB, [address] [place] [address] (Auto) [address] [place] [address] 11:25pm Monocytes (%) April 08, 6.4 % 3-11 MAIN LAB, [address] [place] [address] (Auto) [address] [place] [address] 11:03am Eosinophils (%) August 1.3 % 0-3 MAIN LAB, [address] [place] [address] (Auto) [address] [place] [address] 11:01am Eosinophils (%) June 1.6 % 0-3 MAIN LAB, [address] [place] [address] (Auto) [address] [place] [address] 11:25pm Eosinophils (%) April 08, 2.7 % 0-3 LEDA N LAB, [address] [place] [address] (Auto) [address] [place] [address] 11:03am Basophils (%) August 0.6 % 0-1 MAIN L AB, [address] [place] [address] (Auto) 2019 . [place] [address] 11:01am Basophils (%) June 0.7 % 0-1 MAIN L AB, [address] [place] [address] (Auto) [address] [place] [address] 11:25pm Basophils (%) April 08, 0.7 % 0-1 MAIN LAB, [address] [place] [address] (Auto) [address] [place] [address] 11:03am Immature August 0.4 % 0-1 MAIN LAB, [address] [place] [address] Granulocyte % [address] [place] [address] (Auto) 11:01am Immature June 0.5 % 0-1 MAIN LAB, [address] [place] [address] Granulocyte % [address] [place] [address] (Auto) 11:25pm Immature April 08, 0.8 % 0-1 MAIN LAB, [address] [place] [address] Granulocyte % 2019 [place] [address] (Auto) 11:03am Neutrophils # August 7.45 1.4-6.5 MAIN L AB, [address] [place] [address] (Auto) 2019 1000/[place] [address] 11:01am Neutrophils # June 7.89 1.4-6.5 MAIN L AB, [address] [place] [address] (Auto) 2019 1000/mm3 [place] [address] 11:25pm Neutrophils # April 08, 5.60 1.4-6.5 MAIN LAB, [address] [place] [address] (Auto) 2019 1000/mm3 [place] [address] 11:03am Lymphocytes # August 3.56 1.2-3.4 MAIN L AB, [address] [place] [address] (Auto) 2019 1000/mm3 [place] [address] 11:01am Lymphocytes # June 2.23 1.2-3.4 MAIN L AB, [address] [place] [address] (Auto) 2019 1000/mm3 [place] [address] 11:25pm Lymphocytes # April 08, 2.65 1.2-3.4 MAIN LAB, [address] [place] [address] (Auto) 2019 1000/mm3 [place] [address] 11:03am Monocytes # August 0.71 0.0-0.8 MAIN LAB , [address] [place] [address] (Auto) 2019 1000/mm3 [place] [address] 11:01am Monocytes # June 0.70 0.0-0.8 MAIN LAB , [address] [place] [address] (Auto) 2019 1000/mm3 [place] [address] 11:25pm Monocytes # April 08, 0.59 0.0-0.8 MAIN LA B, [address] [place] [address] (Auto) 2019 1000/mm3 [place] [address] 11:03am Eosinophils # August 0.16 0.0-0.7 MAIN L AB, [address] [place] [address] (Auto) 2019 1000/mm3 [place] [address] 11:01am Eosinophils # June 0.18 0.0-0.7 MAIN L AB, [address] [place] [address] (Auto) 2019 1000/mm3 [place] [address] 11:25pm Eosinophils # April 08, 0.25 0.0-0.7 MAIN LAB, [address] [place] [address] (Auto) 2019 1000/mm3 [place] [address] 11:03am Basophils # August 0.07 0.0-0.1 MAIN LAB , [address] [place] [address] (Auto) 2019 1000/[place] [address] 11:01am Basophils # June 0.08 0.0-0.1 MAIN LAB , [address] [place] [address] (Auto) 2019 1000/mm3 [place] [address] 11:25pm Basophils # April 08, 0.06 0.0-0.1 MAIN LA B, [address] [facility] (Auto) 2019 1000/mm3 [place] [address] 11:03am Absolute Immature August 0.1 0-1 MA IN LAB, [address] [place] [address] Granulocyte (auto [address] [place] [facility] [place] [address] 11:01am Absolute Immature June 0.1 0-1 MA IN LAB, [address] [place] [address] Granulocyte (auto 2019 [facility] [place] [facility] [address] 11:25pm Absolute Immature April 08, 0.1 0-1 M AIN LAB, [address] [place] [address] Granulocyte (auto 2019 [place] [address] 11:03am Differential August Automated MAIN LA B, [address] [place] [address] [place] [facility] [place] [address] 11:01am Differential June Automated MAIN LA B, [address] [place] [address] Method [address] [place] [address] 11:25pm Differential April 08, Automated MAIN L AB, [address] [place] [address] Method [address] [place] [address] 11:03am Sodium Level August 137 mmol/L 137-145 MAIN L AB, [address] [place] [address] [facility] [facility] [place] [address] 11:01am Sodium Level June 138 mmol/L 137-145 MAIN L AB, [address] [place] [address] [address] [place] [address] 11:25pm Potassium Level August 4.3 mmol/L 3.6-5.0 LEDA N LAB, [address] [place] [address] [place] [address] 11:01am Potassium Level June 3.6 mmol/L 3.6-5.0 LEDA N LAB, [address] [place] [address] [address] [place] [address] 11:25pm Chloride Level Parker 105 mmol/L 98-107 MAIN LAB, [address] [place] [address] [place] [address] 11:01am Chloride Level June 103 mmol/L 98-107 MAIN LAB, [address] [place] [address] [address] [place] [address] 11:25pm Carbon Dioxide Parker 26 mmol/L 22-30 MAIN LAB, [address] [place] [address] [place] [address] 11:01am Carbon Dioxide June 29 mmol/L 2230 MAIN LAB, [address] [place] [address] Level 2019 [facility] 56143 11:25pm Anion Gap August 1503-25 MAIN LAB, [address] [place] [address] 2019 [facility] [address]3677 11:01am Anion Gap June 1503-25 MAIN LAB, [address] [place] [address] 2019 [facility] 37450 11:25pm Blood Urea August 12 mg/dL 05-05 MAIN LAB, [address] [place] [address] Nitrogen 2019 [facility] 58018 11:01am Blood Urea June 13 mg/dL 05-05 MAIN LAB, [address] [place] [address] Nitrogen 2019 [facility] 46707 11:25pm Creatinine August 0.95 mg/dL 0.66-1.25 MAIN LAB , [address] [place] [address] 2019 [facility] 07191 11:01am Creatinine June 0.97 mg/dL 0.66-1.25 MAIN LAB , [address] [place] [address] 2019 [facility] 97437 11:25pm Glomerular August > 60 >60.0 MAIN LAB, [address] [place] [address] Filtration Rate 2019 mL/min [facility] 88221 Calc 11:01am Glomerular June > 60 >60.0 MAIN LAB, [address] [place] [address] Filtration Rate 2019 mL/min [facility] 40981 Calc 11:25pm Glucose Level August 101 mg/dL 70-100 MAIN L AB, [address] [place] [address] 2019 [facility] 36417 11:01am Glucose Level June 125 mg/dL 70-100 MAIN L AB, [address] [place] [address] 2019 [facility] 67581 11:25pm Calcium Level August 9.4 mg/dL 8.4-10.2 MAIN L AB, [address] [place] [address] 2019 [facility] [address]77[address] 11:01am Calcium Level June 9.1 mg/dL 8.4-10.2 MAIN L AB, [address] [place] [address] 2019 [facility] 89716 11:25pm Calcium Adjusted August 9.6 mg/dL 8.4-10.2 LEDA N LAB, [address] [place] [address] [facility] [address] 11:01am Calcium Adjusted June 9.3 mg/dL 8.4-10.2 LEDA N LAB, [address] [place] [address] for Albumin 2019 [facility] [place] [address] 11:25pm Total Bilirubin August 0.5 mg/dL 0.2-1.3 MAIN LAB, [address] [place] [address] 2019 [facility] [address] 11:01am Total Bilirubin June 0.3 mg/dL 0.2-1.3 MAIN LAB, [address] [place] [address] 2019 [facility] 30686 11:25pm Aspartate Amino August 34 U/L MAIN LAB, [address] [place] [address] Transf (AST/SGOT) 2019 [facility] 28859 11:01am Aspartate Amino June 34 U/L MAIN LAB, [address] [place] [address] Transf (AST/SGOT) 2019 [facility] [address]679 11:25pm Alanine August 50 U/L <50 As of MAIN LAB, [address] [place] [address] Aminotransferase 201901/09/20, the [facility] [address]69 (ALT/SGPT) 11:01am Reference Range for ALT/SGPT for adult patients has been updated. The Reference Range for ALT/SGPT has not been established for patients <18 years of age. Alanine June 48 U/L <50 As of MAIN LAB, [address] [place] [address] Aminotransferase 201901/09/20, the [facility] 45234 (ALT/SGPT) 11:25pm Reference Range for ALT/SGPT for adult patients has been updated. The Reference Range for ALT/SGPT has not been established for patients <18 years of age. Troponin I June < 0.012 0-0.034 Reference MAIN LAB, [address] [place] [address] 2019 ng/mL Range: [facility] 68211 11:25pm <0.034 ng/mL AMI Cut-off 0.120 ng/mLThe results of this assay can be falsely decreased in patients who consume Biotin. Total Protein August 7.3 g/dL 6.3-8.2 MAIN L AB, [address] [place] [address] 2019 [facility] [address] 11:01am Total Protein June 7.4 g/dL 6.3-8.2 MAIN L AB, [address] [place] [address] 2019 [facility] 25517 11:25pm Albumin August 4.0 g/dL 3.5-5.0 MAIN LAB, [address] [place] [address] 2019 [facility] [place] [address] 11:01am Albumin June 4.1 g/dL 3.5-5.0 MAIN LAB, [address] [place] [address] 2019 [facility] 04885 11:25pm Cholesterol Level August 229 mg/dL 59-199 MA IN LAB, [address] [place] [address] 2019 [facility] [place] [address] 11:01am HDL Cholesterol August 33 mg/dL 40-60 [facility] AIN LAB, [address] [place] [address] [facility] [address] 11:01am Education Program (NCEP) has set the following guidelines (reference values) for cholesterol, HDL:Low HDL: <40 mg/dLNormal: 40-60 mg/dLDesirab le: >60 mg/dL LDL Cholesterol August 145.0 0-129 MAIN LAB, [address] [place] [address] 2019 mg/dL [facility] [place] [address] 11:01am VLDL Cholesterol August 51.0 mg/dL 0-32 MA IN LAB, [address] [place] [address] 2019 [facility] [place] [address] 11:01am Cholesterol/HDL August 6.93 0-3.9 MAIN LAB, [address] [place] [address] Ratio 2019 [facility] [place] [address] 11:01am Triglycerides August 255 mg/dL 0-149 MAIN L AB, [address] [place] [address] Level 2019 [facility] [place] [address] 11:01am Alkaline August 103 U/L 38-126 MAIN LAB, [address] [place] [address] Phosphatase 2019 [facility] [place] [address] 11:01am Alkaline June 92 U/L 38-126 MAIN LAB, [address] [place] [address] Phosphatase 2019 [facility] [place] [address] 11:25pm Thyroid August 1.89 mlU/L 0.47-4.68 The results MAIN LA B, [address] [place] [address] Stimulating 2019 [place] [facility] [address] Hormone (TSH) 11:01am assay can be falsely [...] [facility] PATIENT NAME: YOLANDA FANG 15 DATE OF : 1975 ATTENDING/ER PHYSICIAN: Carolina perez MILK BOTTLER ER/ATTENDING PHYSICIAN: PRIMARY CARE PHYS: Out Town [...] [facility] PATIENT NAME: YOLANDA FANG 15 DATE OF : 1975 ATTENDING/ER PHYSICIAN: Carolina perez MILK BOTTLER ER/ATTENDING PHYSICIAN: PRIMARY CARE PHYS: Out Town [...] ER/ATTENDING PHYSICIAN: PRIMARY CARE PHYS: Carolina Aguirre MILK BOTTLER ADMITTING PHYSICIAN: CONSULTING PHYSICIAN: PROCEDURE DATE: 04/23/20 [...] ER/ATTENDING PHYSICIAN: PRIMARY CARE PHYS: Carolina Aguirre MILK BOTTLER ADMITTING PHYSICIAN: CONSULTING PHYSICIAN: PROCEDURE DATE: 06/04/20 [...] 10, 2020 11:49pm Roscoe Guerrero MD comp [facility] EKG PATIENT NAME: YOLANDA FANG 15 DATE OF : 1975 ATTENDING PHYSICIAN: PRIMARY CARE PHYS: Carolina Aguirre MILK BOTTLER DICTATING PHYSICIAN: Roscoe Guerrero MD REPORT STATUS: [...] a copy on file here at [facility]? No O ctober 2018 12:44pm Pt has a Living Will? No June 25, 2019 12:44pm Do we have a copy on file here at [facility]? No O ctober 2018 12:44pm Pt has a Power of Bobbin Presser? No June 12:44pm Do we have a copy on file here at [facility]? No O ctober 2018 12:44pm Chief Complaint and Reason for Visit Chief Complaint TESTICLE PAIN FOLLOW UP US RT HIP PAIN; LBP TESTICULAR COMPLAINT New Patient Orchitis and epididymitis Orchitis and epididymitis Chest Pain Other forms of dyspnea follow up Shortness of Breath r/o pe Orchitis and epididymitis Nutrition Concern Reason for Visit Epididymo-orchitis Epididymo-orchitis Encounters Encounter Location(s) Arrival/Admit Discharge/Depart Provider(s ) Date Date Departed [facility] April 07, 2020 April 08, 2020 [facility] 11:35pm 12:22am Center-Emergency Department Departed [facility] April 08, 2020 April 08, 2020 [facility] 9:03am 11:39am Center-Emergency Department Departed [facility] April 08, 2020 April 08, 2020 Manuel Figueroa [facility] 9:06am 9:07am , MILK BOTTLER [facility] Departed [facility] April 08, 2020 April 08, 2020 [facility] Emergency Medical 8:44pm 9:10pm Center-Emergency Department Departed [facility] April 09, 2020 April 09, 2020 Jerome Joshi Physician/Prov Medical 7:23am 8:40am MD ider Office 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 Services Departed [facility] April 23, 2020 April 23, 2020 Jerome younger [facility] 7:43am 7:44am MD [facility] Departed [facility] June 04, June 04, 2020 Jerome cordova [facility] 2019 1:17pm 1:18pm MD [facility] Departed [facility] June 10, 2020 June 11, 2020 null Emergency Medical 10:46pm 12:27am Center-Emergency Department Departed [facility] June 18, 2020 June 18, 2020 CARLOTTA Morales [facility] 11:10am 11:11am Malick cazares [facility] Departed [facility] June 29, June 29, 2020 Jerome Joshi Physician/Prov Medical 2019 1:41pm 2:05pm MD ross Office [facility] Visit 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 Services Departed [facility] August 20, August 20, 2020 Quinn Lopez JR, Referred Medical 2019 4:17pm 4:18pm Departed [facility] August 23, August 23, 2020 Quinn Lopez JR, Clinical [facility]- 2019 11:13am 11:14am DO [facility] Departed [facility] August 27, August 27, 2020 Jerome Joshi [facility] 2019 2:26pm 2:27MD carlo [facility] Departed [facility] September 17, 2020 September 17, 2020 Dedra Eastman Physician/[facility] Medical 2:47pm 3:46pm [facility] Medicine Recent Diagnosis Onset Date Epididymo-orchitis Epididymo-orchitis Assessments [...] Insurance Providers Guarantor YOLANDA FANG Address [address] [place] [address] Contact Info. Home Phone: Payer Policy Id Coverage Id Subscriber's Subscriber Id Effective E xpiration Name Date Date [place] [id number] YOLANDA FANG [id number] [place] SELF PAY Self N/A Plan of Treatment [...] Referral Date Information Manuel Aguirre Work Phone: [phone] Manuel Figueroa NP [place] [phone] Manuel Aguirre Work Phone: [phone] Manuel Figueroa NP [facility] [place]ha [phone] Jerome Willoughby Work Phone: [facility] Urology MD Adi [address] [facility] , [address] [facility] [address] Town Out Future Procedures Future procedure information [...] (Body Mass Index) 53.3 kg/m2 September 2:49pm Hospital Discharge Instructions
--- OUTSIDE RECORDS SUMMARY | 2022-03-21 09:34 | XMS_ITS | Continuity of Care Document ---
:1975 Author Organization [facility] Address [address] [place] [address] Phone Care Team Providers Name Role Phone Carolina Aguirre Primary Care Provider Jj Lopez JR Attending Provider MD Kwaku Joshi Attending Provider Jj Lopez JR Primary Care Provider Melody Robles Attending Provider MD Renzo Sweet Attending Provider Chief Complaint and Reason for Visit Chief Complaint Shortness of Breath r/o pe Orchitis and epididymitis Nutrition Concern Follow Up Contact with and (suspected) exposure to COVID-19 PALPITATIONS Contact with and (suspected) exposure to COVID-19 Hemorrhage of anus and rectu m epididymitis Follow up EYE COMPLAINT/SOB S/P EAR INFECTION Reason for Visit Epididymo-orchitis Change in bowel [...] Status Current every day smoker August 13, 11:20pm Additional Data Assigned Sex Male Family [...] Heart palpitations Resolved Palpitations Resolved Conjunctivitis Resolved Vaso-vagal reaction Resolved Left epididymitis Resolved Hypertension Resolved Medications Medication Status Dose Units Route Directions Qty Days Start End Ins tructions Date Date Levofloxacin Disconti 500 MG PO DAILY 10 Decembe Decemb nued r , er 2019, 8:34am 2019 12:01a m Gabapentin Active 300 MG PO THREE TIMES Tonya A DAY 2019 11:45pm Ibuprofen Active 600 MG PO THREE TIMES Tonya A DAY 2019 11:45pm Levofloxacin Disconti 750 MG PO DAILY 19 March Octobe nued , r 2019, 12:03am 2019 1:44pm Metoprolol Active 50 MG PO TWICE A DAY 60 February 12:21pm Erythromycin Active 1 APPLIC LEFTEYE DAILY 3.5 February 22, 2021 12:22pm Cyclobenzapr Active MG TABLET Decee ine r 2020 11:11pm Gabapentin Active MG TABLET Decembe r 2020 11:11pm Meloxicam Active MG TABLET Decembe r 2020 11:11pm Amoxicillin Active 875 MG PO TWICE A DAY 14 7 Decembe r 2020 1:10am Immunizations Immunization Event Not Given Dose Kitchen Aide Lot Number Vac cine Date Reason Number Informatio n Statement (VIS) Detail Covid-January 07mcg/0.3ml 2020 Covid-January 19mcg/0.3ml 2020 Pfizer Procedures Procedure Date Performed Status CTA Angio Chest w/wo Contrast August 23, 2020 11:30am co mpleted DIAGNOSTIC COLONOSCOPY January 25, 2021 active INTERFACE ELECTROCARDIOGRAM December 23, 2020 2:38am complete d US Testicles (Scrotal) February 01, 2021 2:30pm completed US Testicles (Scrotal) August 27, 2020 2:30pm completed Relevant Diagnostic Tests and/or Laboratory Data Laboratory Results Test Date/Time Result Interpretation Reference Result Comment Performing Range Site White Blood August 12.00 4.8-10.8 MAIN LAB Count 2019 1000/mm3 133 [facility] 11:01am [place] [address] White Blood December 8.70 4.8-10.8 MAIN LAB Count 2020 1000/mm3 133 [facility] 2:40am [place] [address] Red Blood August 5.37 M/mm3 4.70-6.00 MAIN LAB Count 2019 133 [facility] 11:01am [place] [address] Red Blood December 5.05 M/mm3 4.70-6.00 MAIN LAB Count 2020 133 [facility] 2:40am [place] [address] Hemoglobin August 15.1 g/dL 14.0-18.0 MAIN LAB 2019 133 [facility] 11:01am [place] [address] Hemoglobin December 14.3 g/dL 14.0-18.0 MAIN LAB 2020 133 [facility] 2:40am [place] [address] Hematocrit August 47.3 % 42-52 MAIN LAB 2019 133 [facility] 11:01am [place] [address] Hematocrit December 43.3 % 42-52 MAIN LAB 2020 [address] [facility] [address] 2:40am [place] [address] Mean August 88.1 fL 80.0-94.0 MAIN LAB Corpuscular 2019 133 [facility] Volume 11:01am [place] [address] Mean December 85.7 fL 80.0-94.0 MAIN LAB Corpuscular 2020 133 [facility] Volume 2:40am [place] [address] Mean August 28.1 pg 27-31 MAIN LAB Corpuscular 2019 133 [facility] Hemoglobin 11:01am [place] [address] Mean December 28.3 pg 27-31 MAIN LAB Corpuscular 2020 133 [facility] Hemoglobin 2:40am [place] [address] Mean August 31.9 g/dL 33-37 MAIN LAB Corpuscular 2019 133 [facility] Hemoglobin 11:01am [place] [address] Concent Mean December 33.0 g/dL 33-37 MAIN LAB Corpuscular 2020 133 [facility] Hemoglobin 2:40am [place] [address] Concent Red Cell August 14.0 % 11.5-14.5 MAIN LAB Distribution 2019 133 [facility] Width 11:01am [place] [address] Red Cell December 13.9 % 11.5-14.5 MAIN LAB Distribution 2020 133 [facility] Width 2:40am [place] [address] Platelet August 328 140-440 MAIN LAB Count 2019 1000/mm3 [address] [facility] [address] 11:01am [place] [address] Platelet December 258 140-440 MAIN LAB Count 2020 1000/mm3 133 [facility] 2:40am [place] [address] Mean Platelet August 10.9 fL 7.4-10.4 MAIN L AB Volume 2019 133 [facility] 11:01am [place] [address] Mean Platelet December 10.1 fL 7.4-10.4 MAIN L AB Volume [address] [place] [address] 2:40am [place] [address] Neutrophils Parker 62.1 % 40.0-72.0 MAIN LAB (%) (Auto) [address] [place] [address] 11:01am [place] [address] Neutrophils 57.1 % 40.0-72.0 MAIN LAB (%) (Auto) [address] [place] [address] 2:40am [place] [address] Lymphocytes Parker 29.7 % 17-45 MAIN LAB (%) (Auto) [address] [place] [address] 11:01am [place] [address] Lymphocytes 33.7 % 17-45 MAIN LAB (%) (Auto) [address] [place] [address] 2:40am [place] [address] Monocytes (%) August 5.9 % 3-11 MAIN L AB (Auto) [address] [place] [address] 11:01am [place] [address] Monocytes (%) December 6.0 % 3-11 MAIN L AB (Auto) [address] [place] [address] 2:40am [place] [address] Eosinophils Parker 1.3 % 0-3 MAIN LAB (%) (Auto) [address] [place] [address] 11:01am [place] [address] Eosinophils 2.2 % 0-3 MAIN LAB (%) (Auto) [address] [place] [address] 2:40am [place] [address] Basophils (%) August 0.6 % 0-1 MAIN L AB (Auto) [address] [place] [address] 11:01am [place] [address] Basophils (%) 0.7 % 0-1 MAIN L AB (Auto) [address] [place] [address] 2:40am [place] [address] Immature Parker 0.4 % 0-1 MAIN LAB Granulocyte % [address] [place] [address] (Auto) 11:01am [place] [address] Immature 0.3 % 0-1 MAIN LAB Granulocyte % [address] [place] [address] (Auto) 2:40am [place] [address] Neutrophils # Parker 7.45 1.4-6.5 MAIN L AB (Auto) 2019 1000/mm3 133 [facility] 11:01am [place] [address] Neutrophils # December 4.97 1.4-6.5 MAIN L AB (Auto) 2020 1000/mm3 133 [facility] 2:40am [place] [address] Lymphocytes # August 3.56 1.2-3.4 MAIN L AB (Auto) 2019 1000/mm3 [address] [place] [address] 11:01am [place] [address] Lymphocytes # December 2.93 1.2-3.4 MAIN L AB (Auto) 2020 1000/mm3 [address] [place] [address] 2:40am [place] [address] Monocytes # August 0.71 0.0-0.8 MAIN LAB (Auto) 2019 1000/mm3 [address] [place] [address] 11:01am [place] [address] Monocytes # December 0.52 0.0-0.8 MAIN LAB (Auto) 2020 1000/mm3 [address] [place] [address] 2:40am [place] [address] Eosinophils # August 0.16 0.0-0.7 MAIN L AB (Auto) 2019 1000/mm3 [address] [place] [address] 11:01am [place] [address] Eosinophils # December 0.19 0.0-0.7 MAIN L AB (Auto) 2020 1000/mm3 [address] [place] [address] 2:40am [place] [address] Basophils # August 0.07 0.0-0.1 MAIN LAB (Auto) 2019 1000/mm3 [address] [place] [address] 11:01am [place] [address] Basophils # 0.06 0.0-0.1 MAIN LAB (Auto) 2020 1000/mm3 [address] [place] [address] 2:40am [place] [address] Absolute Parker 0.1 0-1 MAIN LAB Immature [address] [place] [address] Granulocyte 11:01[place] [address] (auto Absolute 0.0 0-1 MAIN LAB Immature [address] [place] [address] Granulocyte 2:40[place] [address] (auto Differential Parker Automated MAIN LA B Method 2019 133 [facility] 11:01am [place] [address] Differential December Automated MAIN LA B Method 2020 133 [facility] 2:40am [place] [address] Sodium Level August 137 mmol/L 137-145 MAIN L AB 2019 133 [facility] 11:01am [place] [address] Sodium Level December 140 mmol/L 137-145 MAIN L AB 2020 133 [facility] 2:40am [place] [address] Potassium August 4.3 mmol/L 3.6-5.0 MAIN LAB Level 2019 133 [facility] 11:01am [place] [address] Potassium December 3.5 mmol/L 3.6-5.0 MAIN LAB Level 2020 133 [facility] 2:40am [place] [address] Chloride August 105 mmol/L 98-107 MAIN LAB Level 2019 133 [facility] 11:01am [place] [address] Chloride December 105 mmol/L 98-107 MAIN LAB Level 2020 133 [facility] 2:40am [place] [address] Carbon August 26 mmol/L 22-30 MAIN LAB Dioxide Level 2019 133 [facility] 11:01am [place] [address] Carbon December 29 mmol/L 22-30 MAIN LAB Dioxide Level 2020 133 [facility] 2:40am [place] [address] Anion Gap August 15- MAIN LAB 2019 133 [facility] 11:01am [place] [address] Anion Gap December 14-16 MAIN LAB 2020 133 [facility] 2:40am [place] [address] Blood Urea August 12 mg/dL 8- MAIN LAB Nitrogen 2019 133 [facility] 11:01am [place] [address] Blood Urea December 11 mg/dL 8- MAIN LAB Nitrogen 2020 133 [facility] 2:40am [place] [address] Creatinine August 0.95 mg/dL 0.66-1.25 MAIN LAB 2019 133 [facility] 11:01am [place] [address] Creatinine December 0.85 mg/dL 0.66-1.25 MAIN LAB 2020 133 [facility] 2:40am [place] [address] Glomerular Parker > 60 >60.0 MAIN LAB Filtration 2019 mL/min 133 [facility] Rate Calc 11:01am [place] [address] Glomerular > 60 >60.0 MAIN LAB Filtration 2020 mL/min 133 [facility] Rate Calc 2:40am [place] [address] Glucose Level August 101 mg/dL 70-100 MAIN L AB 2019 133 [facility] 11:01am [place] [address] Glucose Level December 121 mg/dL 70-100 MAIN L AB 2020 133 [facility] 2:40am [place] [address] Calcium Level August 9.4 mg/dL 8.4-10.2 MAIN L AB 2019 133 [facility] 11:01am [place] [address] Calcium Level December 8.5 mg/dL 8.4-10.2 MAIN L AB 2020 133 [facility] 2:40am [place] [address] Calcium August 9.6 mg/dL 8.4-10.2 MAIN LAB Adjusted for 2019 133 [facility] Albumin 11:01am [place] [address] Magnesium December 2.0 mg/dL 1.6-2.3 MAIN LAB Level 2020 133 [facility] 2:40am [place] [address] Total August 0.5 mg/dL 0.2-1.3 MAIN LAB Bilirubin 2019 133 [facility] 11:01am [place] [address] Aspartate August 34 U/L 17-59 MAIN LAB Amino Transf 2019 133 [facility] (AST/SGOT) 11:01[place] [address] Alanine August 50 U/L <50 As of 01/09/20, MAIN L AB Aminotransfer 2019 the Reference [address] [facility] ase 11:01am [place] [address] (ALT/SGPT) ALT/SGPT for adult patients has been updated. The Reference Range for ALT/SGPT has not been established for patients <18 years of age. Troponin I December < 0.012 0-0.034 Reference Range: MA IN LAB 2020 ng/mL <0.034 ng/mL AMI [address] [facility] 2:40am Cut-off 0.120 [facility] [address] ng/mLThe results of this assay can be falsely decreased in patients who consume Biotin. Total Protein August 7.3 g/dL 6.3-8.2 MAIN L AB 2019 [facility] 11:01am [facility] [address] Albumin August 4.0 g/dL 3.5-5.0 MAIN LAB 2019 133 [facility] 11:01am [facility] [address] Cholesterol August 229 mg/dL 59-199 MAIN LAB Level 2019 133 [facility] 11:01am [facility] [address] HDL August 33 mg/dL 40-60 The National MAIN LA B Cholesterol 2019 Cholesterol 133 [facility] 11:01am [facility] [address] Program (NCEP) has set the following guidelines (reference values) for cholesterol, HDL:Low HDL: <40 mg/dLNormal: 40-60 mg/dLDesirable: >60 mg/dL LDL August 145.0 0-129 MAIN LAB Cholesterol 2019 mg/dL 133 [facility] 11:01am [facility] [address] VLDL August 51.0 mg/dL 0-32 MAIN LAB Cholesterol 2019 133 [facility] 11:01am [facility] [address] Cholesterol/H August 6.93 0-3.9 MAIN L AB DL Ratio 2019 133 [facility] 11:01am [facility] [address] Triglycerides August 255 mg/dL 0-149 MAIN L AB Level 2019 133 [facility] 11:01am [facility] [address] Alkaline August 103 U/L 38-126 MAIN LAB Phosphatase 2019 133 [facility] 11:01am [place] [address] Thyroid August 1.89 mlU/L 0.47-4.68 The results of MAIN LAB Stimulating 2019 this assay can [address] [facility] Hormone (TSH) 11:01am [place] [address] decreased in patients who consume Biotin. SARS-CoV-2 November Negative Negative This test is MAIN L AB RNA (RT-PCR) 2020 only for use [address] [facility] 10:00am [place] [address] and Drug Administration's (FDA) Emergency Use Authorization [...] sheets for providers can be found at: [employer]/ 8556/downloadFac t sheets for patients can be found at: [employer]/[address] [employer]/ 0578/download SARS-CoV-2 January 19 Negative This test is MAIN L AB RNA (RT-PCR) 2020 only for use [address] [facility] 12:00pm [place] [address] and Drug Administration's (FDA) Emergency Use Authorization [...] sheets for providers can be found at: [employer]/ 8361/downloadFac t sheets for patients can be found at: [employer]/ 0870/download Diagnostic Imaging Reports Report Dictated Date/Time Dictated By Status Radiology Report August 23, 2020 12:30pm PhD Kenzie Padgett MD completed [facility] CAT SCAN REPORT PATIENT NAME: YOLANDA [...] hart MD, PhD in OV> 08/23/20 1305 Report Dictated Date/Time Dictated By Status Radiology Report August 27, 2020 3:01pm Tori Millan MD completed [facility] ULTRASOUND REPORT PATIENT NAME: YOLANDA KO [...] Tori hart MD in OV> 08/27/20 1518 Report Dictated Date/Time Dictated By Status Electrocardiogram December 23, 2020 3:28am Mario Belcher completed [facility] EKG PATIENT NAME: YOLANDA KO 13 [...] January 25, 2021 2:02pm Marty Sweet MD [place] [address] OPERATIVE PROCEDURE REPORT PATIENT: Yolanda Ko DATE: 01/25/2021 MR# [id number] PROCEDURE: Colonoscopy, diagnostic VISIT ID: [id number] ENDOSCOPIST: Dr. Renzo Sweet MD BIRTHDATE: 1975 [employer]ICATING SUPERVISOR: Martín Iraheta rn GENDER: male INDICATIONS: Diagnostic colonscopy and Constipation MEDICATIONS: See anesthesia notes MEDICATION START TIME: OUT TIME: DESCRIPTION OF PROCEDURE: After the ris ks benefits and alternatives of the procedure were thoroughly explained, in formed consent was obtained. Digital rectal exam performed and revealed no a bnormalities of the rectum. The [id number] ([id number]) endoscope was intro duced through the anus [...] complicati ons. IMPRESSION: Normal colonoscopy RECOMMENDATIONS: Call [phone] for prob lems REPEAT EXAM: Return in 10 years Colonos copy or as needed for changes.. CC: Jj Lopez Jr eSigned: Dr. Renzo Sweet MD 1 2:04 PM Name: Yolanda Ko, [id number] Report Dictated Date/Time Dictated By Status Radiology Report February 01, 2021 4:27pm PhD Kenzie Padgett MD completed [facility] ULTRASOUND REPORT PATIENT NAME: YOLANDA KO [...] dd: 02/01/21 1627 <Electronically signed by Kenzie ahrt MD, PhD in OV> 02/01/21 1639 Vital [...] 2021 1 :48pm Respiratory rate 16 /min -January 25, 2021 1:48pm Oxygen saturation by Pulse [...] a copy [place] [facility] [place] O ctober 2018 12:44pm Pt has a Living Will? No June 25, 2019 12:44pm Do we have a copy on file here [place] [facility] [place] O ctober 2018 12:44pm Pt has a Power of Warehouse Loader? No June 12:44pm Do we have a copy on [place] [facility] [place] O [place]tober 2018 12:44pm Insurance Providers Guarantor YOLANDA KO Address [address] [place] [address] Contact Info. Home Phone: Payer Policy Id Coverage Id Subscriber's Subscriber Id Effective E xpiration Name Date Date MEDICAID OF [id number] YOLANDA KO [id number] [place] S[employer]F PAY Self N/A Encounters Encounter Location(s) Arrival/Admit Date Discharge/Depart Date Provider(s) Departed [facility] August 20, August 20, 2020 Quinn Lopez [facility] Medical 2019 4:17pm 4:18pm JR [facility] Departed [facility] August 23, August 23, 2020 [place] pily Lopez [facility]- 2019 11:13am 11:14am DO RUDDY [facility] Departed [facility] August 27August 27, 2020 Jerome mao [facility]- 2019 2:26pm 2:27pm MD Adi [facility] Departed [facility] September 17, 2020 September 17, 2020 TIFFANIE daniel Physician/Prov Medical 2:47pm 3:46pm Raiza GUTIERREZ [facility] Visit Medicine Departed [facility] September 24, 2020 September 24, 2020 Jerome Willoughby Physician/Prov Medical 11:32am 11:54am MD Adi [facility] Visit consultants intern Services Departed [facility] December 07, 2020 December 07, 2020 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 E Clinical Medical 6:45am 6:46am [facility] Departed [facility] December 23, 2020 December 23, 2020 [facility] Emergency Medical 2:24am 4:05am Center-Emergency Department Departed [facility] January 19, 2021 January 19, 2021 4:03am [facility] 4:02am MD Micki Olmitz-Curbside Departed [facility] January 25, 2021 January 25, 2021 2:09pm Kd pineda Surgical Day Medical 11:06am MD Micki [facility]-Surgical Services Departed [facility] February 01, 2021 February 01, 2021 2:30pm Jerome cordova [facility]-DI 2:29pm MD Adi [facility] Departed [facility] February 10, 2021 February 10, 2021 2:07pm Jerome cordova Physician/Prov Medical 1:44pm MD [facility] Departed [facility] February 22, 2021 February 22, 2021 [facility] Emergency Medical 11:47am 12:38pm Center-Emergency Department Departed [facility] August 13, 2021 August 14, 2021 nul l Emergency Medical 11:02pm 1:34am Center-Emergency Department Recent Diagnosis Onset Date Epididymo-orchitis Change in [...] FUENTES JR, DO [address] [facility] [place] [phone] Jj Lopez Work Phone: Alicia FUENTES JR, DO [address] [facility] [place] [address] 8 Jj Lopez Work Phone: Alicia FUENTES JR, DO [address] [facility] [phone] Future Procedures Future procedure information is unavailable Future Medications Future medication information is unavailable Patient Instructions Palpitations ([facility]) COVID 19 General Instructions- decrease the spread of coronavirus ([facility]) COVID 19 General Instructions- decrease the spread of coronavirus ([facility]) High Blood Pressure ([facility]) Conjunctivitis ([facility]) ED COVID 19 General Instructions- decrease [...]
--- OUTSIDE RECORDS SUMMARY | 2022-03-21 09:34 | XMS_ITS | Continuity of Care Document ---
:1975 Author Organization [facility] Address [address] [place] [address] Phone Care Team Providers Name Role Phone [...] EAR INFECTION Shortness of Breath Thyroiditis, unspecified Reason for Visit Epididymo-orchitis Change in bowel [...] 14 7 Decembe Dec emb nued r 5th, er 2021 08, 1:10am 2020 12:01a m Immunizations Immunization Event Not Given Dose Cashier Self Service Gasoline Lot Number Vac cine Date Reason Number Informatio n Statement (VIS) Detail Covid-January 07mcg/0.3ml Pfizer 2020 Covid-January 19mcg/0.3ml 2020 Pfizer Procedures Procedure Date Performed Status US Thyroid Soft Tissue Neck September 15, 2021 2:00pm active CT Chest w/o Contrast September 08, 2021 5:00pm completed DIAGNOSTIC COLONOSCOPY January 25, 2021 active INTERFACE ELECTROCARDIOGRAM December 23, 2020 2:38am complete d US Testicles (Scrotal) February 01, 2021 2:30pm completed Relevant Diagnostic Tests and/or Laboratory Data Laboratory Results Test Date/Time Result Interpretation Reference Result Comment Performing Range Site White Blood December 8.70 4.8-10.8 MAIN LAB Count 2020 1000/mm3 [address] [facility] 2:40am [facility] [address] Red Blood December 5.05 M/mm3 4.70-6.00 MAIN LAB Count 2020 133 [facility] 2:40am [facility] [address] Hemoglobin December 14.3 g/dL 14.0-18.0 MAIN LAB 2020 133 [facility] 2:40am [facility] [address] Hematocrit December 43.3 % 42-52 MAIN LAB 2020 133 [facility] 2:40am [facility] [address] Mean December 85.7 fL 80.0-94.0 MAIN LAB Corpuscular [address] [facility] [address] Volume 2:40am [place] [address] Mean December 28.3 pg 27-31 MAIN LAB Corpuscular 2020 133 [facility] Hemoglobin 2:40am . [facility] [address] Mean December 33.0 g/dL 33-37 MAIN LAB Corpuscular [address] [place] [address] Hemoglobin 2:40[place] [address] Concent Red Cell 13.9 % 11.5-14.5 MAIN LAB Distribution [address] [place] [address] Width 2:40am [place] [address] Platelet December 258 140-440 MAIN LAB Count 2020 1000/mm3 [address] [place] [address] 2:40am [place] [address] Mean Platelet December 10.1 fL 7.4-10.4 MAIN L AB Volume [address] [place] [address] 2:40am [place] [address] Neutrophils 57.1 % 40.0-72.0 MAIN LAB (%) (Auto) [address] [place] [address] 2:40am [place] [address] Lymphocytes 33.7 % 17-45 MAIN LAB (%) (Auto) [address] [place] [address] 2:40am [place] [address] Monocytes (%) December 6.0 % 3-11 MAIN L AB (Auto) [address] [place] [address] 2:40am [place] [address] Eosinophils 2.2 % 0-3 MAIN LAB (%) (Auto) [address] [place] [address] 2:40am [place] [address] Basophils (%) December 0.7 % 0-1 MAIN L AB (Auto) [address] [place] [address] 2:40am [place] [address] Immature 0.3 % 0-1 MAIN LAB Granulocyte % [address] [place] [address] (Auto) 2:40am [place] [address] Neutrophils # December 4.97 1.4-6.5 MAIN L AB (Auto) 2020 1000/mm3 [address] [place] [address] 2:40am [place] [address] Lymphocytes # 2.93 1.2-3.4 MAIN L AB (Auto) 2020 1000/mm3 [address] [place] [address] 2:40am [place] [address] Monocytes # December 0.52 0.0-0.8 MAIN LAB (Auto) 2020 1000/mm3 [address] [place] [address] 2:40am [place] [address] Eosinophils # 0.19 0.0-0.7 MAIN L AB (Auto) 2020 1000/mm3 133 [facility] 2:40am [place] [address] Basophils # 0.06 0.0-0.1 MAIN LAB (Auto) 2020 1000/mm3 133 [facility] 2:40am [place] [address] Absolute 0.0 0-1 MAIN LAB Immature 2020 133 [facility] Granulocyte 2:40am [facility] [address] (auto Differential Automated MAIN LA B Method 2020 133 [facility] 2:40am [place] [address] Sodium Level December 140 mmol/L 137-145 MAIN L AB 2020 133 [facility] 2:40am [place] [address] Potassium December 3.5 mmol/L 3.6-5.0 MAIN LAB Level 2020 133 [facility] 2:40am [place] [address] Chloride December 105 mmol/L 98-107 MAIN LAB Level 2020 133 [facility] 2:40am [place] [address] Carbon 29 mmol/L 22-30 MAIN LAB Dioxide Level [address] [place] [address] 2:40am [place] [address] Anion Gap December 6 7-16 MAIN LAB 2020 133 [facility] 2:40am [place] [address] Blood Urea December 11 mg/dL 8-26 MAIN LAB Nitrogen 2020 133 [facility] 2:40am [place] [address] Creatinine December 0.85 mg/dL 0.66-1.25 MAIN LAB 2020 133 [facility] 2:40am [place] [address] Glomerular December > 60 >60.0 MAIN LAB Filtration 2020 mL/min [address] [place] [address] Rate Calc 2:40am [place] [address] Glucose Level December 121 mg/dL 70-100 MAIN L AB 2020 133 [facility] 2:40am [place] [address] Calcium Level December 8.5 mg/dL 8.4-10.2 MAIN L AB 2020 133 [facility] 2:40am [place] [address] Magnesium December 2.0 mg/dL 1.6-2.3 MAIN LAB Level 2020 133 [facility] 2:40am [place] [address] Troponin I December < 0.012 0-0.034 Reference Range: MA IN LAB 2020 ng/mL <0.034 ng/mL AMI 13 3 [facility] 2:40am Cut-off 0.[address] [place] [address] ng/mLThe results of this assay can be falsely decreased in patients who consume Biotin. SARS-CoV-2 November Negative Negative This test is MAIN L AB RNA (RT-PCR) 2020 only for use [address] [place] [address] 10:00am [place] [address] and Drug Administration's (FDA) Emergency Use Authorization [...] sheets for providers can be found at: [employer]gov/media/13 5110/downloadFac t sheets for patients can be found at: fda.gov/media/45 3993/download SARS-CoV-2 January 19 Negative This test is MAIN L AB RNA (RT-PCR) 2020 only for use [address] [place] [address] 12:00pm [place] [address] and Drug Administration's (FDA) Emergency Use Authorization [...] sheets for providers can be found at: fda.gov/media/23 6772/downloadFac t sheets for patients can be found at: [employer]gov/Gelato Fiasco/43 1302/download Diagnostic Imaging Reports Report Dictated Date/Time Dictated By Status Electrocardiogram December 23, 2020 3:28am Mario Belcher completed [facility] EKG PATIENT NAME: YOLANDA KO 13 [...] January 25, 2021 2:02pm Marty Sweet MD [place] [address] 78 OPERATIVE PROCEDURE REPORT PATIENT: Yolanda Ko DATE: 01/25/2021 MR# [id number] PROCEDURE: Colonoscopy, diagnostic VISIT ID: [id number] ENDOSCOPIST: Dr. Renzo Sweet MD BIRTHDATE: 1975 MARKETING CLERK: Martín Iraheta rn GENDER: male INDICATIONS: Diagnostic colonscopy and Constipation MEDICATIONS: See anesthesia notes MEDICATION START TIME: MD OUT TIME: DESCRIPTION OF PROCEDURE: After the ris ks benefits and alternatives of the procedure were thoroughly explained, in formed consent was obtained. Digital rectal exam performed and revealed no a bnormalities of the rectum. The [id number] ([id number]) endoscope was intro duced through the anus [...] complicati ons. IMPRESSION: Normal colonoscopy RECOMMENDATIONS: Call [phone] for prob lems REPEAT EXAM: Return in 10 years Colonos copy or as needed for changes.. CC: Jj Lopez Jr eSigned: Dr. Renzo Sweet MD 1 2:04 PM Name: Yolanda Ko, [id number] Report Dictated Date/Time Dictated By Status Radiology Report February 01, 2021 4:27pm PhD Kenzie Padgett MD completed [facility] ULTRASOUND REPORT PATIENT NAME: YOLANDA KO [...] 10, 2021 10:06pm Sunshine [place] MD completed [facility] CAT SCAN REPORT PATIENT NAME: [...] By : Sunshine bonilla MD dd: [id number]/10/[id number] Vital Signs Vital Reading Result Reference Range [...] :48pm Respiratory rate 16 /min 12-24 January 25 2021 1:48pm Oxygen saturation by Pulse 100 % 95-100 January 082020 1:48pm oximetry BP Systolic 128 mm[Hg] 100-140 January 25, 2021 1 :48pm BP Diastolic 89 mm[Hg] 50-85 January 25, 2021 1 :48pm BMI (Body Mass Index) 56.2 kg/m2 January 13, 2 7:40am Inhaled oxygen flow rate 3 L/min [...] have a copy on file here at [facility]? No O ctober 2018 12:44pm Pt has a Living Will? No June 25, 2019 12:44pm Do we have a copy on file here at [facility]? No O ctober 2018 12:44pm Pt has a Power of Conference Director? No June 12:44pm Do we have a copy on file here at [facility]? No O ctober 2018 12:44pm Insurance Providers Guarantor YOLANDA KO Address [address] [place], [place] [id number] Contact Info. Home Phone: Payer Policy Id Coverage Id Subscriber's Subscriber Id Effective E xpiration Name Date Date MEDICAID OF [id number] YOLANDA KO [id number] [employer] SELF PAY Self N/A Encounters Encounter Location(s) Arrival/Admit Date Discharge/Depart Date Provider(s) Departed [facility] September 17, 2020 September 17, 2020 TIFFANIE daniel Physician/Prov Medical 2:47pm 3:46pm Raiza GUTIERREZ [facility] Visit Medicine Departed [facility] September 24, 2020 September 24, 2020 Jerome Willoughby Physician/Prov Medical 11:32am 11:54am MD Adi [facility] 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 Departed [facility] December 07, 2020 December 07, 2020 ED CASE MANAGER Sandrine Yu Clinical Medical 6:45am 6:46am [facility] Departed [facility] December 23, 2020 December 23, 2020 [facility] Emergency Medical 2:24am 4:05am Center-Emergency Department Departed [facility] January 19, 2021 January 19, 2021 4:03am Kd pineda Clinical Medical 4:02am MD Micki [facility] Departed [facility] January 25, 2021 January 25, 2021 2:09pm Kd pineda Surgical Day Medical 11:06am MD Micki [facility]-Surgical Services Departed [facility] February 01, 2021 February 01, 2021 2:30pm Jerome cordova [facility] 2:29pm MD Adi [facility] Departed [facility] February 10, 2021 February 10, 2021 2:07pm Jerome cordova Physician/Prov Medical 1:44pm MD Adi [facility] 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 Departed [facility] February 22, 2021 February 22, 2021 null Emergency Medical 11:47am 12:38pm Center-Emergency Department Departed [facility] August 13, 2021 August 14, 2021 monica bonilla Emergency Medical 11:02pm 1:34am Center-Emergency Department Departed [facility] September 08September 08, 2021 Quinn Lopez [facility] 2020 5:01pm 5:02pm DO RUDDY [facility] Departed [facility] September 15, 2021 September 15, 2021 Kenna Morel , [facility] 1:43pm 1:44pm 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 [facility] Recent Diagnosis Onset Date Epididymo-orchitis Change in [...] Lopez Work Phone: Alicia FUENTES JR, DO [address] [place] [address] [place] [address] 8 Jj Lopez Work Phone: Alicia FUENTES JR, DO [address] [place] [address] [place] [address] 8 Jj Lopez Work Phone: Alicia FUENTES JR, DO [address] [place] [address] [place] 7[address] 3 Future Procedures Future procedure information is unavailable Future Medications Future medication information is unavailable Patient Instructions Palpitations (DC) COVID 19 General Instructions- decrease the spread of coronavirus ([facility]) COVID 19 General Instructions- decrease the spread of coronavirus ([facility]) High Blood Pressure (DC) Conjunctivitis ([facility]) ED COVID 19 General Instructions- decrease [...]
--- OUTSIDE RECORDS SUMMARY | 2022-03-21 09:34 | XMS_ITS | Continuity of Care Document ---
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 Follow Up Follow Up N50.819 - Testicular pain, u nspecified Reason for Visit Hearing loss, bilateral Multinodular [...] Observat ion Smokes tobacco daily (finding) J 2021 1:58pm Observation Status Observation Response Date of Response Alcohol Use Yes September 29, 2021 1 0:03pm alcohol intake frequency holidays/special occasions September 29, 2021 10:03pm only Substance/Street Drug Use Yes September 29, 2021 10:03pm Substance Use Treatment No September 29 10:03pm substance use type marijuana September 29, 2021 1 0:03pm Smoking Status Current every day smoker March 09, 2022 1:58pm Additional Data Assigned Sex Male Family History [...] Levofloxacin Disconti 500 MG PO DAILY [facility] nu, er 2019, 1:00am 2019 1:01am Omeprazole Active 40 MG PO TWICE A DAY 60 November 23, 2021 12:00am Clotrimazole Active 0 TOP TWICE A DAY February 5 drops in , LEFT ear 2021 twice daily x 12:00am 14 days Gabapentin Disconti 300 MG PO THREE TIMES March A DAY 2019 12:00am 8:06am Ibuprofen Active 600 MG PO THREE TIMES Tonya A DAY 2019 12:00am Levofloxacin Disconti 750 MG PO DAILY March nued 2019, 12:00am 2019 2:44pm Metoprolol Disconti 50 MG PO TWICE A DAY 60 February Tartrate nued , 2020 12:00am 1:01pm Erythromycin Disconti 1 APPLIC LEFTEYE DAILY 3.5 February nued , 2020 12:00am 8:06am Cyclobenzapr Active MG TABLET Decembe ine r 2020 1:00am Gabapentin Active MG TABLET Decembe r 2020 1:00am Meloxicam Active MG TABLET Decembe r 2020 1:00am Amoxicillin Disconti 875 MG PO TWICE A DAY 14 7 Decembe Dec emb nued r , er 2020 12th, 1:00am 2020 1:01am Amoxicillin- Disconti 1 TAB PO TWICE A DAY 29 September Ju ne Pot nued , Clavulanate 2021 2021 (Augmentin) 1:00am 1:01pm 875-125 mg tablet Immunizations Immunization Event Not Given Dose Draw Bench Operator Lot Number Vac cine Date Reason Number Informatio n Statement (VIS) Detail Covid-27 December 30mcg/0.3ml , Pfizer (Purple 2020 top) Covid-January 19, 30mcg/0.3ml 2020 Pfizer (Purple top) Procedures Procedure Date Performed Status US Thyroid Soft Tissue Neck September 15, 2021 3:00pm complet ed US Testicles (Scrotal) March 14, 2022 12:36pm completed US Gd FNA Breast/Node/Thyroid November 11, 2021 [...] Authorization (EUA) for use by authorized laboratories. [facility] (RT-PCR 9:54pm Fact sheets for prov iders can be found at: [address] [place] [address] ) fda.gov/media/06735 5/[place] [address] Fact sheets for audra ents can be found at: fda.gov/media/78000 7/download Diagnostic Imaging Reports Report Dictated Date/Time Dictated By Status Radiology Report September 10, 2021 10:06pm Sunshine [place] MD completed [facility] CAT SCAN REPORT PATIENT NAME: YOLANDA [...] 16, 2021 8:21am Arnie Murillo MD completed [facility] ULTRASOUND REPORT PATIENT NAME: YOLANDA FANGN: [id number] DATE OF : 1975 ATTENDING/ER PHYSICIAN: [...] 11, 2021 1:09pm Arnie Murillo MD completed [facility] ULTRASOUND REPORT PATIENT NAME: YOLANDA FANG [...] informed consent was obtained from the patient. [place] protocol including a timeout was performed prior [...] the needle and directly submitted to the electroneurodiagnostic technologist who was present for the pro cedure. A total of four passes were made in this fashion and directly submitted t o the electroneurodiagnostic technologist who was present for the procedure. [...] Arnie brasher MD in OV> 11/11/21 1312 Report Dictated Date/Time Dictated By Status Radiology Report March 14, 2022 1:22pm Tori Millan MD comp [facility] ULTRASOUND REPORT PATIENT NAME: YOLANDA FANG 13 DATE OF : 1975 ATTENDING/ER PHYSICIAN: Jerome ruiz MD ER/ATTENDING PHYSICIAN: PRIMARY CARE PHYS: Jj Lopez JR, DO ADMITTING PHYSICIAN: CONSULTING PHYSICIAN: PROCEDURE DATE: 03/14/22 REPORT STATUS: Signed DICTATING PHYSICIAN: Tori Millan MD REASON FOR EXAM: N45.3 - Epididymo-orchitis EXAMINATION: US SCROTUM CLINICAL INFORMATION: 46-year-old man with follow-up for epid idymoorchitis. COMPARISON: 02/01/2021 TECHNIQUE: A sonogram of the scrotum was performed assessing fang-scale appearance and color Doppler flow. Spectral Doppler an alysis of the arterial and venous flow were performed in the testes bilaterall y. FINDINGS: The right testicle demonstrates homogen eous echotexture and measures 4.5 x 3 x 2.3 cm. The right epididymal head is normal and measures 1 x 1.2 x 1.3 cm The left testicle demonstrates homogene ous echotexture and measures 4.3 x 2.7 x 2.3 cm. The left epididymal head is normal and measures 1.4 x 1.2 x 0.6 cm Heterogeneous hypovascular 1 x 0.5 x 0. 5 cm area in the left superior testicle is unchanged. Small left hydrocele measures 0.6 x 1.6 x 1.3 cm. Small left varicocele measures 2.3 mm a t rest and 2.4 mm with Valsalva maneuvers. Normal flow is noted in both testes. CONCLUSION: 1. No testicular mass or torsion. 2. No findings of epididymoorchitis. St able peripheral region of decreased echogenicity at the site of healed left testicular abscess. dd: 03/14/22 1322 <Electronically signed by Tori hart MD in OV> 03/14/22 1327 Vital Signs Vital Reading Result Reference Range [...] Oxygen saturation by Pulse 100 % 95-100 Janua 2021 9:52pm oximetry BP Systolic 159 mm[Hg] [...] have a copy on file here at [facility]? No O ctober 2018 1:44pm Pt has a Living Will? No June 25, 2019 1:44pm Do we have a copy on file here at [facility]? No O ctober 2018 1:44pm Pt has a Power of Equipment Mechanic? No June 1:44pm Do we have a copy on file here at [facility]? No O ctober 2018 1:44pm Insurance Providers Guarantor YOLANDA L FANG Address [address] [place] [address] Contact Info. Home Phone: Payer Policy Id Coverage Id Subscriber's Subscriber Id Effective E xpiration Name Date [place] [id number] YOLANDA FANG [id number] [facility] SELF PAY Self N/A Encounters Encounter Location(s) Arrival/Admit Date Discharge/Depart Date Provider(s) Departed [facility] August 14, 2021 August 14, 2021 [facility] Emergency Medical 12:02am 2:34am Center-Emergency Department Departed [facility] September 08September 08, [address] Lopez [facility] 2020 6:01pm 6:02pm DO RUDDY [facility] Departed [facility] September 15, 2021 September 15, 2021 Kenna Morel [facility] 2:43pm 2:44pm SRIDEVI [facility] Departed [facility] September 29, 2021 September 29, 2021 [facility] Emergency Medical 7:31pm 10:12pm Center-Emergency Department Departed [facility] October 11, 2021 October 11, 2021 Anibal Mandel Physician/Prov Medical 12:31pm 1:03pm DO Erick [facility] Visit nocturnist Departed [facility] November 11, 2021 November 11, 2021 Mackenzie Mandel [facility] 11:48am 11:49am DO Erick [facility] Departed [facility] November 23, 2021 November 23, 2021 Mackenzie Mandel Physician/[facility] Medical 8:02am 8:47am DO [facility] Dep[facility] February 23, 2022 February 23, 2022 Mackenzie Mandel Physician/Prov Medical 12:57pm 1:22pm DO [facility] Departed [facility] March 14, 2022 March 14, 2022 Jerome Willoughby [facility] 12:30pm 12:31pm MD Adi [facility] Recent Diagnosis Onset Date Hearing loss, bilateral [...] unavailable Pending Tests Test Name Date ordered Thyroid Soft Tissue Neck November 23, 2021 8:41am Future Visits Future appointment information is unavailable Referrals to Other Providers Reason for Referral Start Provider Provider Contact Provider Address Referral Date Information Jj Lopez Work Phone: Alicia FUENTES JR, DO [address] [facility] [address] Jj Lopez Work Phone: Alicia FUENTES JR, DO [address] [facility] [address] 8 Future Procedures Future procedure information is unavailable Future Medications Future medication information is unavailable Patient Instructions Ear Infection ED Viral Syndrome (DC) Ear Infection ED Thyroidectomy Outer Ear Infection Hospital Discharge Instructions
--- OUTSIDE RECORDS SUMMARY | 2022-03-21 09:34 | XMS_ITS | Continuity of Care Document ---
:1975 Author Organization [facility] Address [address] [place] [address] Phone Care Team Providers Name Role Phone [...] of Breath Thyroiditis, unspecified ALL COVID SYMPTOMS Reason for Visit Change in bowel function Morbid obesity due to excess calories Smoker Epididymo-orchitis Allergies, Adverse Reactions, Alerts Allergen Type Severity Reaction Last Updated Verified Status cephalexin Allergy gi upset September 29, 2021 9:03pm Yes Active Social History Smoking Status Status Start Date End Date Date of Observat ion Smokes tobacco daily (finding) J anuary 2021 9:03pm Observation Status Observation Response Date of Response Alcohol Use Yes September 29, 2021 9 :03pm alcohol intake frequency holidays/special occasions only Ron wilson 2021 9:03pm Substance/Street Drug Use Yes September 29, 2021 9:03pm Substance Use Treatment No September 29 9:03pm substance use type marijuana September 29, 2021 9 :03pm Smoking Status Current every day smoker September 29 9:03pm Additional Data Assigned Sex Male Family History [...] Levofloxacin Disconti 500 MG PO DAILY 10 mbe Decemb nued r , er 2019, 8:34am 2019 12:01a m Gabapentin Active 300 MG PO THREE TIMES Tonya A DAY 2019 11:45pm Ibuprofen Active 600 MG PO THREE TIMES Tonya A DAY 2019 11:45pm Levofloxacin Disconti 750 MG PO DAILY March nued , r 2019, 12:03am 2019 1:44pm [...] tablet Immunizations Immunization Event Not Given 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 Lot Number Vac cine Date Reason Number [...] Result Comment Performing Range Site White Blood 8.70 4.8-10.8 MAIN LAB Count 2020 1000/mm3 [address] [facility] 2:40am [facility] [address] Red Blood December 5.05 M/mm3 4.70-6.00 MAIN LAB Count 2020 [address] [facility] 2:40am [facility] [address] Hemoglobin December 14.3 g/dL 14.0-18.0 MAIN LAB 2020 [address] [facility] 2:40am [facility] [address] Hematocrit December 43.3 % 42-52 MAIN LAB 2020 [address] [facility] 2:40am [facility] [address] Mean December 85.7 fL 80.0-94.0 MAIN LAB Corpuscular [address] [facility] [address] Volume 2:40am [facility] [address] Mean December 28.3 pg 27-31 MAIN LAB Corpuscular [address] [facility] Hemoglobin 2:40am [facility] [address] Mean 33.0 g/dL 33-37 MAIN LAB Corpuscular [address] [place] [address] Hemoglobin 2:40am [facility] [address] Concent Red Cell December 13.9 % 11.5-14.5 MAIN LAB Distribution [address] [place] [address] Width 2:40am [facility] [address] Platelet December 258 140-440 MAIN LAB Count 2020 1000/mm3 [address] [place] [address] 2:40am [place] [address] Mean Platelet December 10.1 fL 7.4-10.4 MAIN L AB Volume [address] [place] [address] 2:40am [facility] [address] Neutrophils 57.1 % 40.0-72.0 MAIN LAB (%) (Auto) [address] [place] [address] 2:40am [facility] [address] Lymphocytes December 33.7 % 17-45 MAIN LAB (%) (Auto) [address] [place] [address] 2:40am [place] [address] Monocytes (%) December 6.0 % 3-11 MAIN L AB (Auto) [address] [place] [address] 2:40am [place] [address] Eosinophils 2.2 % 0-3 MAIN LAB (%) (Auto) [address] [place] [address] 2:40am [facility] [address] Basophils (%) December 0.7 % 0-1 MAIN L AB (Auto) [address] [place] [address] 2:40am [place] [address] Immature 0.3 % 0-1 MAIN LAB Granulocyte % [address] [place] [address] (Auto) 2:40am [place] [address] Neutrophils # December 4.97 1.4-6.5 MAIN L AB (Auto) 2020 1000/mm3 [address] [place] [address] 2:40am [place] [address] Lymphocytes # December 2.93 1.2-3.4 MAIN L AB (Auto) 2020 1000/mm3 [address] [place] [address] 2:40am [place] [address] Monocytes # 0.52 0.0-0.8 MAIN LAB (Auto) 2020 1000/mm3 133 [facility] 2:40am [place] [address] Eosinophils # 0.19 0.0-0.7 MAIN L AB (Auto) 2020 1000/mm3 [address] [facility] 2:40am [place] [address] Basophils # 0.06 0.0-0.1 MAIN LAB (Auto) 2020 1000/mm3 133 [facility] 2:40am [place] [address] Absolute 0.0 0-1 MAIN LAB Immature 2020 133 [facility] Granulocyte 2:40am [facility] [place] [address] (auto Differential Automated MAIN LA B Method 2020 133 [facility] 2:40am [place] [address] Sodium Level December 140 mmol/L 137-145 MAIN L AB 2020 133 [facility] 2:40am [place] [address] Potassium 3.5 mmol/L 3.6-5.0 MAIN LAB Level 2020 [address] [facility] 2:40am [place] [address] Chloride December 105 mmol/L 98-107 MAIN LAB Level 2020 133 [facility] 2:40am [place] [address] Carbon December 29 mmol/L 22-30 MAIN LAB Dioxide Level 2020 133 [facility] 2:40am [place] [address] Anion Gap December 6 7-16 MAIN LAB 2020 133 [facility] 2:40am [place] [address] Blood Urea December 11 mg/dL 8-26 MAIN LAB Nitrogen 2020 133 [facility] 2:40am [place] [address] Creatinine December 0.85 mg/dL 0.66-1.25 MAIN LAB 2020 133 [facility] 2:40am [place] [address] Glomerular December > 60 >60.0 MAIN LAB Filtration 2020 mL/min [address] [place] [address] Rate Calc 2:40am [place] [address] Glucose Level December 121 mg/dL 70-100 MAIN L AB 2020 133 [facility] 2:40am [place] [address] Calcium Level December 8.5 mg/dL 8.4-10.2 MAIN L AB 2020 133 [facility] 2:40am [place] [address] Magnesium December 2.0 mg/dL 1.6-2.3 MAIN LAB Level 2020 [address] [facility] 2:40am [place] [address] Troponin I December < 0.012 0-0.034 Reference Range: MA IN LAB 2020 ng/mL <0.034 ng/mL AMI 13 3 [facility] 2:40am Cut-off 0.[address] [facility] [address] ng/mLThe results of this assay can be falsely decreased in patients who consume Biotin. SARS-CoV-2 November Negative Negative This test is MAIN L AB RNA (RT-PCR) 2020 only for use [address] [place] [address] 10:00am under the [place] [address] and Drug Administration's (FDA) Emergency Use Authorization [...] sheets for providers can be found at: fda.gov/media/13 8490/downloadFac t sheets for patients can be found at: fda.gov/media/13 5066/download SARS-CoV-2 January 19 Negative This test is MAIN L AB RNA (RT-PCR) 2020 only for use [address] [place] [address] 12:00pm [place] [address] and Drug Administration's (FDA) Emergency Use Authorization [...] sheets for providers can be found at: [place].Connectloud/Solutionreach/00 9124/downloadFac t sheets for patients can be found at: [place].Connectloud/Solutionreach/03 5694/download Diagnostic Imaging Reports Report Dictated Date/Time Dictated [...] January 25, 2021 2:02pm Marty Sweet MD [place] [phone] OPERATIVE PROCEDURE REPORT PATIENT: Yolanda Ko DATE: 01/25/2021 MR# [id number] PROCEDURE: Colonoscopy, diagnostic VISIT ID: [id number] ENDOSCOPIST: Dr. Renzo Sweet MD BIRTHDATE: 1975 CLASSROOM TECHNOLOGY COACH: Martín Iraheta rn GENDER: male INDICATIONS: Diagnostic colonscopy and Constipation MEDICATIONS: See anesthesia notes MEDICATION START TIME: MD OUT TIME: DESCRIPTION OF PROCEDURE: After the ris ks benefits and alternatives of the procedure were thoroughly explained, in formed consent was obtained. Digital rectal exam performed and revealed no a bnormalities of the rectum. The [id number] ([id number]) endoscope was intro duced through the anus [...] complicati ons. IMPRESSION: Normal colonoscopy RECOMMENDATIONS: Call [phone] for prob lems REPEAT EXAM: Return in 10 years Colonos copy or as needed for changes.. CC: Jj Lopez Jr eSigned: Dr. Renzo Sweet MD 1 2:04 PM Name: Yolanda Ko, [id number] Report Dictated Date/Time Dictated By Status Radiology Report February 01, 2021 4:27pm PhD Kenize Padgett MD completed [facility] [...] signed by Arnie brasher MD in OV> 09/16/2147 Vital Signs Vital Reading Result Reference Range [...] (Body Mass Index) 56.2 kg/m2 January 13, 7:40am Inhaled oxygen flow rate 3 L/min January 1:10pm Heart Rate 92 /min 60-100 February 10, 2021 1 :49pm Respiratory rate 20 /min 12-24 February 10, 2021 1:49pm BP Systolic 128 mm[Hg] [...] August 13 11:07pm Weight 196.40 kg August 13, 11:07pm Body Temperature 98.4 [degF] 97.6-99.6 August 13, 2 021 11:07pm Heart Rate 88 /min 60-100 August 14, 1:30am Respiratory rate 22 /min -August 14, 2 021 1:30am Oxygen saturation by Pulse 98 % 95-100 2020 1:30am oximetry BP Systolic 160 mm[Hg] 100-140 August 14, 1:30am BP Diastolic 100 mm[Hg] 50-85 August 14, 1:30am Height 76 [in_i] September 29 8:52pm Weight 90.71 kg September 29, 8:52pm Body Temperature 98.2 [degF] 97.6-99.6 September 29, 2 022 8:52pm Heart Rate 100 /min 60-100 September 29 8:52pm Respiratory rate 18 /min -September 29, 2 022 8:52pm Oxygen saturation by Pulse 100 % 95-100 2021 8:52pm oximetry BP Systolic 159 mm[Hg] 100-140 September 29, 8:52pm BP Diastolic 89 mm[Hg] 50-85 September 29 8:52pm Advance Directives Advance Directive Response Recorded Date/Time Does patient have an Advanced Directive? No June 25, 2019 12:44pm Do we have a copy on file here at [facility] [place] [place]? No O ct2018 12:44pm Pt has a Living Will? No June 25, 2019 12:44pm Do we have a copy on file here at [facility] [place] [place]? No O ctober 2018 12:44pm Pt has a Power of Floor And Wall Applier Liquid? No June 12:44pm Do we have a copy on file here at [facility] [place] [place]? No O ctober 2018 12:44pm Insurance Providers Guarantor YOLANDA L ANNALISA Address [address] [place] [address] Contact Info. Home Phone: Payer Policy Id Coverage Id Subscriber's Subscriber Id Effective E xpiration Name Date Date [place]ICAID OF [id number] YOLANDA Lujan ANNALISA [id number] [place] [employer] PAY Self N/A Encounters Encounter Location(s) Arrival/Admit Date Discharge/Depart Date Provider(s) Departed [facility] December 07, 2020 December 07, 2020 SEMICONDUCTOR TECHNICIAN Sandrine Yu Clinical Medical 6:45am 6:46am [facility] Departed [facility] December 23, 2020 December 23, 2020 null Emergency Medical 2:24am 4:05am Center-Emergency Department Departed [facility] January 19, 2021 January 19, 2021 [facility] 4:02am MD Micki [facility] Departed [facility] January 25, 2021 January 25, 2021 2:09pm [facility] Surgical Day Medical 11:06am MD Micki [facility] Departed [facility] February 01, 2021 February 01, 2021 2:30pm Jerome cordova [facility] 2:29pm MD Adi [facility] Departed [facility] February 10, 2021 February 10, 2021 2:07pm Jerome cordova Physician/Prov Medical 1:44pm MD [facility] Departed [facility] February 22, 2021 February 22, 2021 null Emergency Medical 11:47am 12:38pm Center-Emergency Department Departed [facility] August 13, 2021 August 14, 2021 nul l Emergency Medical 11:02pm 1:34am Center-Emergency Department Departed [facility] September 08, September 08, 2021 Quinn Lopez [facility] 2020 5:01pm 5:02pm DO RUDDY [facility] Departed [facility] September 15, 2021 September 15, 2021 Kenna Morel , [facility] 1:43pm 1:44pm BUSINESS AFFAIRS MANAGER [facility] Departed [facility] September 29, 2021 September 29, 2021 nul chad Emergency Medical 6:31pm 9:12pm Center-Emergency Department Recent Diagnosis Onset Date Change in bowel [...] Lopez Work Phone: Alicia FUENTES JR, DO [address] [place] [address] [phone] Jj Lopez Work Phone: Alicia FUENTES JR, DO [address] [place] [address] [phone] Jj Lopez Work Phone: Alicia FUENTES JR, DO [address] [facility] [phone] Jj Lopez Work Phone: Alicia FUENTES JR, DO [address] [facility] [phone] Future Procedures Future procedure information is unavailable Future Medications Future medication information is unavailable Patient Instructions Palpitations ([facility]) COVID 19 General Instructions- decrease the spread of coronavirus ([facility]) COVID 19 General Instructions- decrease the spread of coronavirus ([facility]) High Blood Pressure ([facility]) Conjunctivitis ([facility]) ED COVID 19 General Instructions- decrease [...]
--- OUTSIDE RECORDS SUMMARY | 2022-03-21 09:34 | XMS_ITS | Continuity of Care Document ---
:1975 Author Organization [facility] Address [address] [place] [address] Phone Care Team Providers Name Role Phone [...] 2019 8:35am Urine Specific April 09, 1.025 Sheldon 2019 8:35am (Manual) POC Urine RBC April 09, Trace 2019 8:35am Intact Urine pH April 09, 5.5 (Manual) 2019 8:35am POC Urine April 09, Negative Protein 2019 8:35am Confirmation Urine April 09, 0.2 Urobilinogen 2019 8:35am (Manual) Urine Nitrite April 09, Negative (Manual) 2019 8:35am Urine April 09, Negative Leukocyte 2019 8:35am Esterase (Manual) White Blood June 7.25 4.8-10.8 MAIN LAB , [address] Count 2018 1000/mm3 [facility] [address] 1:32pm White Blood April 08, 9.22 4.8-10.8 MAIN LA B, [address] Count 2019 1000/mm3 [facility] [address] 12:03pm Red Blood June 5.10 M/mm3 4.70-6.00 MAIN LAB, [address] [facility] 2018 [place] [address] 1:32pm Red Blood April 08, 5.22 M/mm3 4.70-6.00 MAIN LAB , [address] [place] [address] 2019 [facility] [address] 12:03pm Hemoglobin June 14.2 g/dL 14.0-18.0 MAIN LAB, [address] [place] [address] 2018 [place] [address] 1:32pm Hemoglobin April 08, 14.7 g/dL 14.0-18.0 MAIN LAB , [address] [place] [address] 12:03pm Hematocrit June 43.7 % 42-52 MAIN LAB, [address] [place] [address] 2018 [place] [address] 1:32pm Hematocrit April 08, 45.9 % 42-52 MAIN LAB , [address] [place] [address] 12:03pm Mean June 85.7 fL 80.0-94.0 MAIN LAB, [address] [place] [address] Corpuscular 2018 [facility] [address] Volume 1:32pm Mean April 08, 87.9 fL 80.0-94.0 MAIN LAB, [address] [place], [place] [address] 2019 [place] [address] Volume 12:03pm Mean June 27.8 pg 27-31 MAIN LAB, [address] [place] [address] Corpuscular 2018 [place] [address] Hemoglobin 1:32pm Mean April 08, 28.2 pg 27-31 MAIN LAB, [address] [place] [address] Corpuscular 2019 [place] [address] Hemoglobin 12:03pm Mean June 32.5 g/dL 33-37 MAIN LAB, [address] [place] [address] Corpuscular 2018 [place] [address] Hemoglobin 1:32pm Concent Mean April 08, 32.0 g/dL 33-37 MAIN LAB, [address] [place] [address] Corpuscular 2019 [place] [address] Hemoglobin 12:03pm Concent Red Cell June 13.6 % 11.5-14.5 MAIN LAB, [address] [place] [address] 2018 [place] [address] Width 1:32pm Red Cell April 08, 14.0 % 11.5-14.5 MAIN LAB, [address] [place] [address] [place] [address] Width 12:03pm Platelet Count June 249 140-440 MAIN LAB, [address] [place] [address] 2018 1000/mm3 [place] [address] 1:32pm Platelet Count April 08, 284 140-440 MAIN LAB, [address] [place] [address] 2019 1000/mm3 [place] [address] 12:03pm Mean Platelet June 10.4 fL 7.4-10.4 MAIN L AB, [address] [place] [address] Volume [address] [place] [address] 1:32pm Mean Platelet April 08, 10.4 fL 7.4-10.4 MAIN LAB, [address] [place] [address] [place] [address] 12:03pm Neutrophils June 59.3 % 40.0-72.0 MAIN LAB , [address] [place] [address] (%) (Auto) 2018 [place] [address] 1:32pm Neutrophils April 08, 60.7 % 40.0-72.0 MAIN LA B, [address] [place] [address] (%) (Auto) 2019 [facility] [place] [address] 12:03pm Lymphocytes June 31.0 % 17-45 MAIN LAB , [address] [place] [address] (%) (Auto) 2018 [place] [address] 1:32pm Lymphocytes April 08, 28.7 % 17-45 MAIN LA B, [address] [place] [address] (%) (Auto) 2019 [place] [address] 12:03pm Monocytes (%) June 6.6 % 3-11 MAIN L AB, [address] [place] [address] (Auto) 2018 [place] [address] 1:32pm Monocytes (%) April 08, 6.4 % 3-11 MAIN LAB, [address] [place] [address] (Auto) 2019 [place] [address] 12:03pm Eosinophils June 1.8 % 0-3 MAIN LAB , [address] [place] [address] (%) (Auto) [address] [place] [address] 1:32pm Eosinophils April 08, 2.7 % 0-3 MAIN LA B, [address] [place] [address] (%) (Auto) 2019 [place] [address] 12:03pm Basophils (%) June 0.7 % 0-1 MAIN L AB, [address] [place] [address] (Auto) 2018 [place] [address] 1:32pm Basophils (%) April 08, 0.7 % 0-1 MAIN LAB, [address] [place] [address] (Auto) 2019 [place] [address] 12:03pm Immature October 0.6 % 0-1 MAIN LAB, [address] [place] [address] Granulocyte % [address] [place] [address] (Auto) 1:32pm Immature April 08, 0.8 % 0-1 MAIN LAB, [address] [place] [address] Granulocyte % 2019 [place] [address] (Auto) 12:03pm Neutrophils # June 4.30 1.4-6.5 MAIN L AB, [address] [place] [address] (Auto) 2018 1000/mm3 [place] [address] 1:32pm Neutrophils # April 08, 5.60 1.4-6.5 MAIN LAB, [address] [place] [address] (Auto) 2019 1000/mm3 [place] [address] 12:03pm Lymphocytes # June 2.25 1.2-3.4 MAIN L AB, [address] [place] [address] (Auto) 2018 1000/[place]3 [place] [address] 1:32pm Lymphocytes # April 08, 2.65 1.2-3.4 MAIN LAB, [address] [place] [address] (Auto) 2019 1000/mm3 [place] [address] 12:03pm Monocytes # June 0.48 0.0-0.8 MAIN LAB , [address] [place] [address] (Auto) 2018 1000/[place]3 [place] [address] 1:32pm Monocytes # April 08, 0.59 0.0-0.8 MAIN LA B, [address] [place] [address] (Auto) 2019 1000/mm3 [place] [address] 12:03pm Eosinophils # June 0.13 0.0-0.7 MAIN L AB, [address] [place] [address] (Auto) 2018 1000/[place]3 [place] [address] 1:32pm Eosinophils # April 08, 0.25 0.0-0.7 MAIN LAB, [address] [place] [address] (Auto) 2019 1000/mm3 [place] [address] 12:03pm Basophils # June 0.05 0.0-0.1 MAIN LAB , [address] [place] [address] (Auto) 2018 1000/[place]3 [place] [address] 1:32pm Basophils # April 08, 0.06 0.0-0.1 MAIN LA B, [address] [place] [address] (Auto) 2019 1000/mm3 [place] [address] 12:03pm Absolute October 0.0 0-1 MAIN LAB, [address] [place] [address] [place] [address] Granulocyte 1:32pm (auto Absolute April 08, 0.1 0-1 MAIN LAB, [address] [place] [address] Immature 2019 [place] [address] Granulocyte 12:03pm (auto Differential October Automated MAIN LA B, [address] [place] [address] [place] [address] 1:32pm Differential April 08, Automated MAIN L AB, [address] [place] [address] Method 2019 [place] [address] 12:03pm Sodium Level June 137 mmol/L 137-145 MAIN L AB, [address] [place] [address] [place] [address] 1:32pm Potassium June 3.8 mmol/L 3.6-5.0 MAIN LAB, [address] [place] [address] [address] [place] [address] 1:32pm Chloride Level June 104 mmol/L 98-107 MAIN LAB, [address] [place] [address] [place] [address] 1:32pm Carbon Dioxide June 23 mmol/L 22-30 MAIN LAB, [address] [place] [address] [address] [place] [address] 1:32pm Anion Gap June 10 7-16 MAIN LAB, [address] [place] [address] [place] [address] 1:32pm Blood Urea June 12 mg/dL 8-26 MAIN LAB, [address] [place] [address] [place] [address] 1:32pm Creatinine June 0.82 mg/dL 0.66-1.25 MAIN LAB , [address] [place] [address] [place] [address] 1:32pm Glomerular June > 60 mL/min >60.0 MAIN LA B, [address] [place] [address] [place] [address] Rate Calc 1:32pm Glucose Level June 99 mg/dL 70-100 MAIN L AB, [address] [place] [address] [place] [address] 1:32pm Calcium Level June 8.5 mg/dL 8.4-10.2 MAIN L AB, 133 [facility] [address] [place] [address] 1:32pm Troponin I June < 0.012 0-0.034 Reference MAIN LAB, [address] [place] [address] 2018 ng/mL Range: [place] [address] 1:32pm <0.034 ng/mL AMI Cut-off 0.120 ng/mLTh e results of this assay can be falsely decreased in patients who consume Biotin. Diagnostic Imaging Reports Report Dictated Date/Time Dictated By Status Electrocardiogram June 25, 2019 1:07pm Ulises Young MD c ompleted [facility] EKG PATIENT NAME: YOLANDA FANG DATE [...] June 25, 2019 1:52pm Mario Gotti completed [facility] RADIOLOGY REPORT PATIENT NAME: YOLANDA [...] by Jaye reveles MD in OV> 06/25/19 [id number] Radiology Report April 08, 2020 10:52am Tori [...] OF : 1975 ATTENDING/ER PHYSICIAN: Carolina perez INTERNATIONAL ACCOUNTING MANAGER ER/ATTENDING PHYSICIAN: PRIMARY CARE PHYS: Out Town [...] 08, 2020 11:18am Tori Millan MD [facility] RADIOLOGY REPORT PATIENT NAME: YOLANDA FANG 15 DATE OF : 1975 ATTENDING/ER PHYSICIAN: Carolina perez INTERNATIONAL ACCOUNTING MANAGER ER/ATTENDING PHYSICIAN: PRIMARY CARE PHYS: Out Town [...] MD ER/ATTENDING PHYSICIAN: PRIMARY CARE PHYS: Carolina Manuel Aguirre NP ADMITTING PHYSICIAN: CONSULTING PHYSICIAN: PROCEDURE [...] Jaye reveles MD in OV> 06/04/20 1438 Advance Directives Advance Directive Response Recorded Date/Time Does patient have an Advanced Directive? No June 25, 2019 1:44pm Do we have a copy on file here at [facility] No O ctober 2018 1:44pm Pt has a Living Will? No June 25, 2019 1:44pm Do we have a copy on file here at [facility]? No O ctober 2018 1:44pm Pt has a Power of Systems Spec? No June 1:44pm Do we have a copy on file here at [facility]? No O ctober 2018 1:44pm Chief Complaint and Reason for Visit Chief Complaint Back Up TESTICLE PAIN FOLLOW UP US RT HIP PAIN; LBP TESTICULAR COMPLAINT New Patient Orchitis and epididymitis Orchitis and epididymitis Reason for Visit Epididymo-orchitis Encounters Encounter Location(s) Arrival/Admit Date Discharge/Depart Date Provider(s) Departed [facility] June 25, 2019 June 25, 2019 [facility] 1:09pm 3:45pm Center-Emergency Department Departed [facility] April 08, 2020 April 08, 2020 [facility] Medical 12:35am 1:22am Center-Emergency Department Departed [facility] April 08, 2020 April 08, 2020 [facility] Emergency Medical 10:03am 12:39pm Center-Emergency Department Departed [facility] April 08, 2020 April 08, 2020 Manuel Aguirre [facility] 10:06am 10:07am SRIDEVI Figueroa [facility] Departed [facility] April 08, 2020 April 08, 2020 [facility] Emergency Medical 9:44pm 10:10pm Center-Emergency Department Departed [facility] April 09, 2020 April 09, 2020 Jerome Willoughby Physician/Prov Medical 8:23am 9:40am MD Adi ider Office [facility] Visit managing attorney Services Departed [facility] April 23, 2020 April 23, 2020 Jerome younger [facility]- 8:43am 8:44am MD Adi [facility] Departed [facility] June 04June 04, 2020 Jerome cordova [facility]- 2019 2:17pm 2:18pm MD Adi [facility] Recent Diagnosis Onset Date Epididymo-orchitis Assessments [...] available Insurance Providers Guarantor YOLANDA FANG Address [address] [place] [address] Contact Info. Home Phone: Payer Policy Id Coverage Id Subscriber's Subscriber Id Effective E xpiration Name Date Date [place]ICA[place] OF [id number] YOLANDA FANG [id number] [place] SELF PAY Self N/A Plan of Treatment [...] Date Information Pcp Estelita Aguirre Work Phone: [phone] Manuel Figueroa NP [facility] [phone] Jerome Willoughby Work Phone: [facility] Urology MD Adi [address] [place] [address] , [facility] A [address] Future Procedures Future procedure information is unavailable Future Medications Future medication information is unavailable Patient Instructions Epididymitis (CT) COVID 19 General Instructions- decrease the spread of coronavirus ([facility]) COVID 19 General Instructions- decrease the spread of coronavirus ([facility]) Social History Smoking Status Status [...]
--- OUTSIDE RECORDS SUMMARY | 2022-03-21 09:34 | XMS_ITS | Continuity of Care Document ---
:1975 Author Organization [facility] Address [address] [place] [address] Phone Care Team Providers Name Role Phone PCP, of Choice Primary Care Provider Unavailable Out of Town, Provider Primary Care Provider Unavailable Allergies, Adverse Reactions, [...] reaction Resolved Procedures Procedure Date Performed Status INTERFACE ELECTROCARDIOGRAM June 25, 2019 1:23pm comple anselmo Chest 2 vw June 25, 2019 1:28pm completed US Testicles (Scrotal) April 08, 2020 12:59am active Relevant Diagnostic Tests and/or Laboratory Data Laboratory Results Test Date/Time Result Interpretation Reference Result Perfo rming Range Comment Site White Blood June 7.25 4.8-10.8 MAIN LAB , [address] [facility] Count 2018 1000/mm3 [facility] [address] 1:32pm Red Blood June 5.10 M/mm3 4.70-6.00 MAIN LAB, [address] [facility] Count 2018 [facility] [address] 1:32pm Hemoglobin June 14.2 g/dL 14.0-18.0 MAIN LAB, [address] [place] [address] 2018 [place] [address] 1:32pm Hematocrit June 43.7 % 42-52 MAIN LAB, [address] [place] [address] 2018 [place] [address] 1:32pm Mean October 85.7 fL 80.0-94.0 MAIN LAB, [address] [place] [address] Corpuscular 2018 [place] [address] Volume 1:32pm Mean October 27.8 pg 27-31 MAIN LAB, [address] [place] [address] Corpuscular 2018 [place] [address] Hemoglobin 1:32pm Mean June 32.5 g/dL 33-37 MAIN LAB, [address] [place] [address] Corpuscular 2018 [place] [address] Hemoglobin 1:32pm Concent Red Cell June 13.6 % 11.5-14.5 MAIN LAB, [address] [place] [address] Distribution 2018 [facility] [place] [address] Width 1:32pm Platelet Count June 249 140-440 MAIN LAB, [address] [place] [address] 2018 1000/mm3 [place] [address] 1:32pm Mean Platelet June 10.4 fL 7.4-10.4 MAIN L AB, [address] [place] [address] Volume 2018 [place] [address] 1:32pm Neutrophils June 59.3 % 40.0-72.0 MAIN LAB , [address] [place] [address] (%) (Auto) 2018 [facility] [place] [address] 1:32pm Lymphocytes June 31.0 % 17-45 MAIN LAB , [address] [place] [address] (%) (Auto) 2018 [facility] [place] [address] 1:32pm Monocytes (%) June 6.6 % 3-11 MAIN L AB, [address] [place] [address] (Auto) 2018 [place] [address] 1:32pm Eosinophils June 1.8 % 0-3 MAIN LAB , [address] [place] [address] (%) (Auto) 2018 [facility] [place] [address] 1:32pm Basophils (%) June 0.7 % 0-1 MAIN L AB, [address] [place] [address] (Auto) 2018 [place] [address] 1:32pm Immature October 0.6 % 0-1 MAIN LAB, [address] [place] [address] Granulocyte % 2018 [place] [address] (Auto) 1:32pm Neutrophils # June 4.30 1.4-6.5 MAIN L AB, [address] [place] [address] (Auto) 2018 1000/mm3 [place] [address] 1:32pm Lymphocytes # June 2.25 1.2-3.4 MAIN L AB, [address] [place] [address] (Auto) 2018 1000/[place]3 [place] [address] 1:32pm Monocytes # June 0.48 0.0-0.8 MAIN LAB , [address] [place] [address] (Auto) 2018 1000/[place]3 [place] [address] 1:32pm Eosinophils # June 0.13 0.0-0.7 MAIN L AB, [address] [place] [address] (Auto) 2018 1000/[place]3 [place] [address] 1:32pm Basophils # June 0.05 0.0-0.1 MAIN LAB , [address] [place] [address] (Auto) 2018 1000/mm3 [place] [address] 1:32pm Absolute October 0.0 0-1 MAIN LAB, [address] [place] [address] [place] [address] Granulocyte 1:32pm (auto Differential October Automated MAIN LA B, [address] [place] [address] [place] [address] 1:32pm Sodium Level June 137 mmol/L 137-145 MAIN L AB, [address] [place] [address] [place] [address] 1:32pm Potassium June 3.8 mmol/L 3.6-5.0 MAIN LAB, [address] [place] [address] [place] [address] 1:32pm Chloride Level June 104 mmol/L 98-107 MAIN LAB, [address] [place] [address] [place] [address] 1:32pm Carbon Dioxide June 23 mmol/L 22-30 MAIN LAB, [address] [place] [address] [place] [address] 1:32pm Anion Gap June 10 7-16 MAIN LAB, [address] [place] [address] [place] [address] 1:32pm Blood Urea June 12 mg/dL 8-26 MAIN LAB, 133 [facility] Nitrogen [address] [place] [address] 1:32pm Creatinine June 0.82 mg/dL 0.66-1.25 MAIN LAB , [address] [place] [address] [place] [address] 1:32pm Glomerular June > 60 mL/min >60.0 MAIN LA B, [address] [place] [address] [place] [address] Rate Calc 1:32pm Glucose Level June 99 mg/dL 70-100 MAIN L AB, [address] [place] [address] [place] [address] 1:32pm Calcium Level June 8.5 mg/dL 8.4-10.2 MAIN L AB, [address] [place] [address] [place] [address] 1:32pm Troponin I June < 0.012 0-0.034 Reference MAIN LAB, [address] [place] [address] 2018 ng/mL Range: [place] [address] 1:32pm <0.034 ng/mL AMI Cut-off 0.120 ng/mLTh e results of this assay can be falsely decreased in patients who consume Biotin. Diagnostic Imaging Reports Report Dictated Date/Time Dictated By Status Electrocardiogram June 25, 2019 1:07pm Ulises Young MD c [facility] EKG PATIENT NAME: YOLANDA FANG DATE OF [...] June 25, 2019 1:52pm Mario Gotti completed [facility] RADIOLOGY REPORT PATIENT NAME: [...] Jaye reveles MD in OV> 06/25/19 1353 Advance Directives Advance Directive Response Recorded Date/Time Does patient have an Advanced Directive? No June 25, 2019 1:44pm Do we have a copy on file here at [facility]? No O ctober 2018 1:44pm Pt has a Living Will? No June 25, 2019 1:44pm Do we have a copy on file here at [facility]? No O ctober 2018 1:44pm Pt has a Power of Quality Assurance Monitor? No June 1:44pm Do we have a copy on file here at [facility]? No O ctober 2018 1:44pm Chief Complaint and Reason for Visit Chief Complaint Back Up TESTICLE PAIN Encounters Encounter Location(s) Arrival/Admit Date Discharge/Depart Date Provider(s) Departed [facility] June 25, 2019 June 25, 2019 nul l Emergency Medical 1:09pm 3:45pm Center-Emergency Department Departed [facility] April 08, 2020 April 08, 2020 null Emergency Medical 12:35am 1:22am Center-Emergency Department Assessments No Assessments Information Available Functional Status Observation Response Date Recorded Living Situation Home June 25, 2019 3 :45pm Living Situation Home April 08, 2020 1:22 am With Spouse April 08, 2020 1:22 am Goals Goals may be documented in an alternate section. Mental Status Observation Response Date Recorded Comprehension Ability Understands Concepts April 08, 2020 1 2:50am Medical Equipment No Medical Equipment Information available Insurance Providers Guarantor YOLANDA FANG Address [address] [place] [id number] Contact Info. Home Phone: Payer Policy Id Coverage Id Subscriber's Subscriber Id Effective E xpiration Name Date Date MEDICAID OF [id number] [place] SELF PAY Self N/A Plan of Treatment Future Tests Future scheduled test information is unavailable Pending Tests Pending diagnostic test information is unavailable Future Visits Future appointment information is unavailable Referrals to Other Providers Reason for Referral Referral Start Date Provider Provider Conta ct Provider Address Information Pcp No Town Out Future Procedures Future procedure information is unavailable Future Medications Future medication information is unavailable Patient Instructions Epididymitis (DC) COVID 19 General Instructions- decrease the spread of coronavirus ([facility]) Social History Smoking Status Status Date of Observation Smokes tobacco daily (finding) April 08, 2020 1:03am Observation Status Observation Response Date of Response Alcohol Use No April 08, 2020 1:03 am alcohol intake frequency holidays/special occasions only Mar 1:03am Substance/Street Drug Use No April 08 0 1:03am Substance Use Treatment No April 08, 2020 1:03am Smoking Status Current every day smoker April 08, 2020 1:03am Assigned Sex Male Vital Signs Vital Reading Result Reference Range Collection Date/ Time Weight 190.96 kg June 25 1:13pm Body Temperature 97.4 [degF] 97.6-99.6 June 25, 2 019 1:13pm Heart Rate 98 /min 60-100 June 25 3:45pm Respiratory rate 20 /min 12-June 25 2 019 3:45pm Oxygen saturation by Pulse 98 % 95-100 Octob 2018 3:45pm oximetry BP Systolic 130 mm[Hg] 100-140 June 25 3:45pm BP Diastolic 72 mm[Hg] 50-85 June 25 3:45pm Weight 199.58 kg April 08, 2020 12:38am Body Temperature 98.0 [degF] 97.6-99.6 April 08, 2020 12:38am Heart Rate 120 /min 60-100 April 08, 2020 12:38am Respiratory rate 24 /min 12-April 08, 2020 12:38am Oxygen saturation by Pulse 96 % 95-100 April 08, 2020 12:38am oximetry BP Systolic 151 mm[Hg] 100-140 April 08, 2020 12:38am BP Diastolic 86 mm[Hg] 50-85 April 08, 2020 12:38am Hospital Discharge Instructions Additional Instructions Be sure to drink plenty of fluids. Return to the ER for any worsening symptoms or concerns.
--- OUTSIDE RECORDS SUMMARY | 2022-03-21 09:34 | XMS_ITS | Continuity of Care Document ---
:1975 Author Organization [facility] Address [address] [place] [address] Phone Care Team Providers Name Role Phone [...] 8:35am Urine Clarity April 09, Clear (Manual) 2020 8:35am POC Urine April 09, Negative Glucose 2019 8:35am POC Urine April 09, Negative Bilirubin 2019 Confirmation 8:35am Urine Ketones April 09, Negative (Manual) 2020 8:35am Urine April 09, 1.025 Specific 2020 Lutsen 8:35am (Manual) POC Urine RBC April 09, Trace 2019 Intact 8:35am Urine pH April 09, 5.5 (Manual) 2020 8:35am POC Urine April 09, Negative Protein 2019 Confirmation 8:35am Urine April 09, 0.2 Urobilinogen 2020 (Manual) 8:35am Urine Nitrite April 09, Negative (Manual) 2020 8:35am Urine April 09, Negative Leukocyte 2019 Esterase 8:35am (Manual) White Blood December 8.70 4.8-10.8 MAIN LAB , [address] Count 2020 1000/mm3 [facility] [place] [address] 3:40am White Blood August 12.00 4.8-10.8 MAIN LAB , [address] [place] [address] Street Count 2019 1000/mm3 [facility] [facility] [place] [address] 12:01pm White Blood June 11.14 4.8-10.8 MAIN LAB , [address] [place] [address] Street Count 2019 1000/[place]3 [place] [address] 12:25am White Blood April 08, 9.22 4.8-10.8 MAIN LA B, [address] Count 2019 1000/[place]3 [place] [address] 12:03pm Red Blood December 5.05 M/mm3 4.70-6.00 MAIN LAB, [address] [place] [address] [place] [address] 3:40am Red Blood August 5.37 M/mm3 4.70-6.00 MAIN LAB, [address] Count [address] [place] [address] 12:01pm Red Blood June 5.37 M/mm3 4.70-6.00 MAIN LAB, [address] [place] [address] Street Count 2019 [place] [address] 12:25am Red Blood April 08, 5.22 M/mm3 4.70-6.00 MAIN LAB , [address] [place] [address] Street Count 2019 [place] [address] 12:03pm Hemoglobin December 14.3 g/dL 14.0-18.0 MAIN LAB, [address] [place] [address] [place] [address] 3:40am Hemoglobin August 15.1 g/dL 14.0-18.0 MAIN LAB, [address] [place] [address] [place] [address] 12:01pm Hemoglobin June 15.1 g/dL 14.0-18.0 MAIN LAB, [address] [place] [address] 2019 [place] [address] 12:25am Hemoglobin April 08, 14.7 g/dL 14.0-18.0 MAIN LAB , [address] [place] [address] 2019 [place] [address] 12:03pm Hematocrit December 43.3 % 42-52 MAIN LAB, [address] [place] [address] [place] [address] 3:40am Hematocrit August 47.3 % 42-52 MAIN LAB, [address] [place] [address] [place] [address] 12:01pm Hematocrit June 46.7 % 42-52 MAIN LAB, [address] [place] [address] 2019 [place] [address] 12:25am Hematocrit April 08, 45.9 % 42-52 MAIN LAB , [address] [place] [address] 2019 [place] [address] 12:03pm Mean December 85.7 fL 80.0-94.0 MAIN LAB, [address] [place] [address] [place] [address] Volume 3:40am Mean August 88.1 fL 80.0-94.0 MAIN LAB, [address] [place] [address] [place] [address] Volume 12:01pm Mean June 87.0 fL 80.0-94.0 MAIN LAB, [address] [place] [address] [place] [address] Volume 12:25am Mean April 08, 87.9 fL 80.0-94.0 MAIN LAB, [address] [place] [address] [address] [place] [address] Volume 12:03pm Mean December 28.3 pg 27-31 MAIN LAB, [address] [place] [address] [place] [address] Hemoglobin 3:40am Mean August 28.1 pg 27-31 MAIN LAB, [address] [facility] Corpuscular [address] [place] [address] Hemoglobin 12:01pm Mean June 28.1 pg - MAIN LAB, [address] [facility] Corpuscular [address] [place] [address] Hemoglobin 12:25am Mean April 08, 28.2 pg 27- MAIN LAB, [address] [facility] Corpuscular [address] [place] [address] Hemoglobin 12:03pm Mean December 33.0 g/dL MAIN LAB, [address] [facility] Corpuscular [address] [place] [address] Hemoglobin 3:40am Concent Mean August 31.9 g/dL MAIN LAB, [address] [facility] Corpuscular [address] [place] [address] Hemoglobin 12:01pm Concent Mean June 32.3 g/dL MAIN LAB, [address] [facility] Corpuscular 2019 [place] [address] Hemoglobin 12:25am Concent Mean April 08, 32.0 g/dL MAIN LAB, [address] [facility] Corpuscular 2019 [place] [address] Hemoglobin 12:03pm Concent Red Cell December 13.9 % 11.5-14.5 MAIN LAB, [address] [place] [address] Distribution 2020 [place] [address] Width 3:40am Red Cell August 14.0 % 11.5-14.5 MAIN LAB, [address] [facility] Distribution [address] [place] [address] Width 12:01pm Red Cell June 14.1 % 11.5-14.5 MAIN LAB, [address] [facility] Distribution [address] [place] [address] Width 12:25am Red Cell April 08, 14.0 % 11.5-14.5 MAIN LAB, [address] [place] [address] [place] [address] Width 12:03pm Platelet 258 140-440 MAIN LAB, [address] [facility] Count 2020 1000/[place]3 [place] [address] 3:40am Platelet August 328 140-440 MAIN LAB, [address] [facility] Count 2019 1000/[place]3 [place] [address] 12:01pm Platelet June 276 140-440 MAIN LAB, [address] [place] [address] Count 2019 1000/[place]3 [place] [address] 12:25am Platelet April 08, 284 140-440 MAIN LAB, [address] [place] [address] Count 2019 1000/[place]3 [place] [address] 12:03pm Mean Platelet December 10.1 fL 7.4-10.4 MAIN L AB, [address] [place] [address] [place] [address] 3:40am Mean Platelet August 10.9 fL 7.4-10.4 MAIN L AB, [address] [place] [address] [place] [address] 12:01pm Mean Platelet June 10.3 fL 7.4-10.4 MAIN L AB, [address] [place] [address] Volume 2019 [place] [address] 12:25am Mean Platelet April 08, 10.4 fL 7.4-10.4 MAIN LAB, [address] [place] [address] Volume 2019 [place] [address] 12:03pm Neutrophils December 57.1 % 40.0-72.0 MAIN LAB , [address] [place] [address] (%) (Auto) [address] [place] [address] 3:40am Neutrophils August 62.1 % 40.0-72.0 MAIN LAB , [address] [place] [address] (%) (Auto) [address] [place] [address] 12:01pm Neutrophils June 70.9 % 40.0-72.0 MAIN LAB , [address] [place] [address] (%) (Auto) [address] [place] [address] 12:25am Neutrophils April 08, 60.7 % 40.0-72.0 MAIN LA B, [address] [place] [address] (%) (Auto) 2019 [place] [address] 12:03pm Lymphocytes 33.7 % 17-45 MAIN LAB , [address] [place] [address] (%) (Auto) [address] [place] [address] 3:40am Lymphocytes Parker 29.7 % 17-45 MAIN LAB , [address] [place] [address] (%) (Auto) [address] [place] [address] 12:01pm Lymphocytes October 20.0 % 17-45 MAIN LAB , [address] [place] [address] (%) (Auto) [address] [place] [address] 12:25am Lymphocytes April 08, 28.7 % 17-45 MAIN LA B, [address] [place] [address] (%) (Auto) [address] [place] [address] 12:03pm Monocytes (%) 6.0 % 3-11 MAIN L AB, [address] [place] [address] (Auto) 2020 [place] [address] 3:40am Monocytes (%) August 5.9 % 3-11 MAIN L AB, [address] [place] [address] (Auto) 2019 [place] [address] 12:01pm Monocytes (%) June 6.3 % 3-11 MAIN L AB, [address] [place] [address] (Auto) 2019 [place] [address] 12:25am Monocytes (%) April 08, 6.4 % 3-11 MAIN LAB, [address] [place] [address] (Auto) 2019 [place] [address] 12:03pm Eosinophils 2.2 % 0-3 MAIN LAB , [address] [place] [address] (%) (Auto) [address] [place] [address] 3:40am Eosinophils August 1.3 % 0-3 MAIN LAB , [address] [place] [address] (%) (Auto) [address] [place] [address] 12:01pm Eosinophils June 1.6 % 0-3 MAIN LAB , [address] [place] [address] (%) (Auto) [address] [place] [address] 12:25am Eosinophils April 08, 2.7 % 0-3 MAIN LA B, [address] [place] [address] (%) (Auto) 2019 [place] [address] 12:03pm Basophils (%) December 0.7 % 0-1 MAIN L AB, [address] [place] [address] (Auto) 2020 [place] [address] 3:40am Basophils (%) August 0.6 % 0-1 MAIN L AB, [address] [place] [address] (Auto) 2019 [place] [address] 12:01pm Basophils (%) June 0.7 % 0-1 MAIN L AB, [address] [place] [address] (Auto) 2019 [place] [address] 12:25am Basophils (%) April 08, 0.7 % 0-1 MAIN LAB, [address] [place] [address] (Auto) 2019 [place] [address] 12:03pm Immature December 0.3 % 0-1 MAIN LAB, [address] [place] [address] Granulocyte % 2020 [place] [address] (Auto) 3:40am Immature August 0.4 % 0-1 MAIN LAB, [address] [place] [address] Granulocyte % 2019 [place] [address] (Auto) 12:01pm Immature June 0.5 % 0-1 MAIN LAB, [address] [place] [address] Granulocyte % [address] [place] [address] (Auto) 12:25am Immature April 08, 0.8 % 0-1 MAIN LAB, [address] [place] [address] Granulocyte % 2019 [place] [address] (Auto) 12:03pm Neutrophils # December 4.97 1.4-6.5 MAIN L AB, [address] [place] [address] (Auto) 2020 1000/[place]3 [place] [address] 3:40am Neutrophils # August 7.45 1.4-6.5 MAIN L AB, [address] [place] [address] (Auto) 2019 1000/[place]3 [place] [address] 12:01pm Neutrophils # June 7.89 1.4-6.5 MAIN L AB, [address] [place] [address] (Auto) 2019 1000/[place]3 [place] [address] 12:25am Neutrophils # April 08, 5.60 1.4-6.5 MAIN LAB, [address] [place] [address] (Auto) 2019 1000/[place]3 [place] [address] 12:03pm Lymphocytes # December 2.93 1.2-3.4 MAIN L AB, [address] [place] [address] (Auto) 2020 1000/[place]3 [place] [address] 3:40am Lymphocytes # August 3.56 1.2-3.4 MAIN L AB, [address] [place] [address] (Auto) 2019 1000/[place]3 [place] [address] 12:01pm Lymphocytes # June 2.23 1.2-3.4 MAIN L AB, [address] [place] [address] (Auto) 2019 1000/[place]3 [place] [address] 12:25am Lymphocytes # April 08, 2.65 1.2-3.4 MAIN LAB, [address] [place] [address] (Auto) 2019 1000/[place]3 [place] [address] 12:03pm Monocytes # 0.52 0.0-0.8 MAIN LAB , [address] [place] [address] (Auto) 2020 1000/[place] [address] 3:40am Monocytes # Parker 0.71 0.0-0.8 MAIN LAB , [address] [place] [address] (Auto) 2019 1000/[place]3 [place] [address] 12:01pm Monocytes # June 0.70 0.0-0.8 MAIN LAB , [address] [place] [address] (Auto) 2019 1000/[place]3 [place] [address] 12:25am Monocytes # April 08, 0.59 0.0-0.8 MAIN LA B, [address] [place] [address] (Auto) 2019 1000/[place]3 [place] [address] 12:03pm Eosinophils # December 0.19 0.0-0.7 MAIN L AB, [address] [place] [address] (Auto) 2020 1000/[place]3 [place] [address] 3:40am Eosinophils # August 0.16 0.0-0.7 MAIN L AB, [address] [place] [address] (Auto) 2019 1000/[place]3 [place] [address] 12:01pm Eosinophils # June 0.18 0.0-0.7 MAIN L AB, [address] [place] [address] (Auto) 2019 1000/[place]3 [place] [address] 12:25am Eosinophils # April 08, 0.25 0.0-0.7 MAIN LAB, [address] [place] [address] (Auto) 2019 1000/[place]3 [place] [address] 12:03pm Basophils # 0.06 0.0-0.1 MAIN LAB , [address] [place] [address] (Auto) 2020 1000/[place]3 [place] [address] 3:40am Basophils # August 0.07 0.0-0.1 MAIN LAB , [address] [place] [address] (Auto) 2019 1000/[place] [address] 12:01pm Basophils # June 0.08 0.0-0.1 MAIN LAB , [address] [place] [address] (Auto) 2019 1000/[place]3 [place] [address] 12:25am Basophils # April 08, 0.06 0.0-0.1 MAIN LA B, [address] [place] [address] (Auto) 2019 1000/mm3 [place] [address] 12:03pm Absolute December 0.0 0-1 MAIN LAB, [address] [place] [address] [place] [address] Granulocyte 3:40am (auto Absolute August 0.1 0-1 MAIN LAB, [address] [place] [address] [place] [address] Granulocyte 12:01pm (auto Absolute June 0.1 0-1 MAIN LAB, [address] [place] [address] Immature 2019 [place] [address] Granulocyte 12:25am (auto Absolute April 08, 0.1 0-1 MAIN LAB, [address] [place] [address] Immature 2019 [place] [address] Granulocyte 12:03pm (auto Differential December Automated MAIN LA B, [address] [place] [address] [place] [address] 3:40am Differential August Automated MAIN LA B, [address] [place] [address] [place] [address] 12:01pm Differential June Automated MAIN LA B, [address] [place] [address] Method 2019 [place] [address] 12:25am Differential April 08, Automated MAIN L AB, [address] [place] [address] Method 2019 [place] [address] 12:03pm Sodium Level December 140 mmol/L 137-145 MAIN L AB, [address] [place] [address] [place] [address] 3:40am Sodium Level August 137 mmol/L 137-145 MAIN L AB, [address] [place] [address] [place] [address] 12:01pm Sodium Level June 138 mmol/L 137-145 MAIN L AB, [address] [place] [address] 2019 [place] [address] 12:25am Potassium December 3.5 mmol/L 3.6-5.0 MAIN LAB, [address] [place] [address] [place] [address] 3:40am Potassium August 4.3 mmol/L 3.6-5.0 MAIN LAB, [address] [place] [address] [place] [address] 12:01pm Potassium June 3.6 mmol/L 3.6-5.0 MAIN LAB, [address] [facility] 2019 [place] [address] 12:25am Chloride December 105 mmol/L 98-107 MAIN LAB, [address] [place] [address] [place] [address] 3:40am Chloride August 105 mmol/L 98-107 MAIN LAB, [address] [place] [address] [place] [address] 12:01pm Chloride June 103 mmol/L 98-107 MAIN LAB, [address] [place] [address] 2019 [place] [address] 12:25am Carbon December 29 mmol/L -30 MAIN LAB, [address] [place] [address] [place] [address] 3:40am Carbon August 26 mmol/L - MAIN LAB, [address] [place] [address] [place] [address] 12:01pm Carbon June 29 mmol/L -30 MAIN LAB, [address] [place] [address] [place] [address] 12:25am Anion Gap December 1403-25 MAIN LAB, [address] [place] [address] [place] [address] 3:40am Anion Gap August 1503-25 MAIN LAB, [address] [place] [address] [place] [address] 12:01pm Anion Gap June 1503-25 MAIN LAB, [address] [place] [address] 2019 [place] [address] 12:25am Blood Urea December 11 mg/dL 05-05 MAIN LAB, [address] [place] [address] [place] [address] 3:40am Blood Urea August 12 mg/dL 05-05 MAIN LAB, [address] [place] [address] [place] [address] 12:01pm Blood Urea June 13 mg/dL 05-05 MAIN LAB, [address] [place] [address] 2019 [place] [address] 12:25am Creatinine December 0.85 mg/dL 0.66-1.25 MAIN LAB , [address] [place] [address] [place] [address] 3:40am Creatinine August 0.95 mg/dL 0.66-1.25 MAIN LAB , [address] [place] [address] [place] [address] 12:01pm Creatinine June 0.97 mg/dL 0.66-1.25 MAIN LAB , [address] [place] [address] 2019 [place] [address] 12:25am Glomerular > 60 >60.0 MAIN LAB, [address] [place] [address] Filtration 2020 mL/[place] [address] Rate Calc 3:40am Glomerular Parker > 60 >60.0 MAIN LAB, [address] [place] [address] Filtration 2019 mL/[place] [address] Rate Calc 12:01pm Glomerular October > 60 >60.0 MAIN LAB, [address] [place] [address] Filtration 2019 mL/[place] [address] Rate Calc 12:25am Glucose Level December 121 mg/dL 70-100 MAIN L AB, [address] [place] [address] [place] [address] 3:40am Glucose Level August 101 mg/dL 70-100 MAIN L AB, [address] [place] [address] [place] [address] 12:01pm Glucose Level June 125 mg/dL 70-100 MAIN L AB, [address] [place] [address] 2019 [place] [address] 12:25am Calcium Level December 8.5 mg/dL 8.4-10.2 MAIN L AB, [address] [place] [address] [place] [address] 3:40am Calcium Level August 9.4 mg/dL 8.4-10.2 MAIN L AB, [address] [place] [address] [place] [address] 12:01pm Calcium Level June 9.1 mg/dL 8.4-10.2 MAIN L AB, [address] [place] [address] 2019 [place] [address] 12:25am Calcium August 9.6 mg/dL 8.4-10.2 MAIN LAB, [address] [place] [address] [place] [address] Albumin 12:01pm Calcium June 9.3 mg/dL 8.4-10.2 MAIN LAB, [address] [place] [address] [place] [address] Albumin 12:25am Magnesium December 2.0 mg/dL 1.6-2.3 MAIN LAB, [address] [place] [address] [place] [address] 3:40am Total Parker 0.5 mg/dL 0.2-1.3 MAIN LAB, [address] [place] [address] [place] [facility] [place] [address] 12:01pm Total June 0.3 mg/dL 0.2-1.3 MAIN LAB, [address] [place] [address] Bilirubin 2019 [place] [address] 12:25am Aspartate August 34 U/L MAIN LAB, [address] [place] [address] Amino Transf [address] [place] [address] (AST/SGOT) 12:01pm Aspartate June 34 U/L MAIN LAB, [address] [place] [address] Amino Transf 2019 [place] [address] (AST/SGOT) 12:25am Alanine August 50 U/L <50 As of 01/09/20, MAIN L AB, [address] [place] [address] Aminotransfer 2019 the [place] [address] ase 12:01pm Range for (ALT/SGPT) ALT/SGPT for adult patients has been updated. The Reference Range for ALT/SGPT has not been established for patients <18 years of age. Alanine June 48 U/L <50 As of 01/09/20, MAIN L AB, [address] [place] [address] [address] [place] [address] ase 12:25am Range for (ALT/SGPT) ALT/SGPT for adult patients has been updated. The Reference Range for ALT/SGPT has not been established for patients <18 years of age. Troponin I December < 0.012 0-0.034 Reference Range: MA IN LAB, [address] [place] [address] 2020 ng/mL <0.034 ng/[place] [address] 3:40am Cut-off 0.120 ng/mLThe results of this assay can be falsely decreased in patients who consume Biotin. Troponin I June < 0.012 0-0.034 Reference Range: MA IN LAB, [address] [place] [address] 2019 ng/mL <0.034 ng/[place] [address] 12:25am Cut-off 0.120 ng/mLThe results of this assay can be falsely decreased in patients who consume Biotin. Total Protein August 7.3 g/dL 6.3-8.2 MAIN L AB, [address] [place] [address] 2019 [facility] [place] [address] 12:01pm Total Protein June 7.4 g/dL 6.3-8.2 MAIN L AB, [address] [place] [address] 2019 [place] [address] 12:25am Albumin August 4.0 g/dL 3.5-5.0 MAIN LAB, [address] [place] [address] 2019 [place] [address] 12:01pm Albumin June 4.1 g/dL 3.5-5.0 MAIN LAB, [address] [place] [address] [address] [facility] [address] 12:25am Cholesterol August 229 mg/dL 59-199 MAIN LAB , [address] [place] [address] 2019 [place] [address] 12:01pm HDL August 33 mg/dL 40-60 The National MAIN LA B, [address] [place] [address] [place] [place] [address] 12:01pm Education Program (NCEP) has set the following guidelines (reference values) for cholesterol, HDL:Low HDL: <40 mg/dLNormal: 40-60 mg/dLDesirable: >60 mg/dL LDL August 145.0 0-129 MAIN LAB, [address] [place] [address] Cholesterol 2019 mg/[place] [address] 12:01pm VLDL August 51.0 mg/dL 0-32 MAIN LAB, [address] [place] [address] Cholesterol 2019 [place] [address] 12:01pm Cholesterol/H August 6.93 0-3.9 MAIN L AB, [address] [place] [address] DL Ratio 2019 [facility] [place] [address] 12:01pm Triglycerides August 255 mg/dL 0-149 MAIN L AB, [address] [place] [address] Level 2019 [facility] [place] [address] 12:01pm Alkaline August 103 U/L 38-126 MAIN LAB, [address] [place] [address] Phosphatase 2019 [place] [address] 12:01pm Alkaline June 92 U/L 38-126 MAIN LAB, [address] [place] [address] Phosphatase 2019 [place] [address] 12:25am Thyroid August 1.89 mlU/L 0.47-4.68 The results of MAIN LAB, [address] [place] [address] Stimulating [address] [place] [address] Hormone (TSH) 12:01pm be falsely decreased in patients who consume Biotin. SARS-CoV-2 January 19 Negative This test is MAIN L AB, [address] RNA (RT-PCR) 2020 [place] [address] 1:00pm under the Food and Drug Administration's [...] sheets for providers can be found at: [employer]/ 3523/downloadFac t sheets for patients can be found at: [employer]/ 3832/download SARS-CoV-2 November Negative This test is MAIN L AB, [address] RNA (RT-PCR) 2020 [place] [address] 11:00am under the Food and Drug Administration's [...] sheets for providers can be found at: [employer]/49 6512/downloadFac t sheets for patients can be found at: [employer]/ASC [place]/ 0278/download Diagnostic Imaging Reports Report Dictated Date/Time Dictated [...] NP ER/ATTENDING PHYSICIAN: PRIMARY CARE PHYS: Out [facility] ADMITTING PHYSICIAN: CONSULTING PHYSICIAN: PROCEDURE DATE: [...] ATTENDING PHYSICIAN: PRIMARY CARE PHYS: Carolina Aguirre DIGITAL MARKETING ASSISTANT DICTATING PHYSICIAN: Roscoe Guerrero MD REPORT STATUS: [...] ER/ATTENDING PHYSICIAN: PRIMARY CARE PHYS: Carolina Aguirre DIGITAL MARKETING ASSISTANT ADMITTING PHYSICIAN: CONSULTING PHYSICIAN: PROCEDURE DATE: 08/23/20 [...] mo nths in high risk patients. dd: 12/14/20 1230 <Electronically signed by Kenzie hart MD, [...] 25, 2021 2:02pm Marty [facility] [place] [address] OPERATIVE PROCEDURE REPORT PATIENT: Yolanda Ko DATE: 01/25/2021 MR# [id number] PROCEDURE: Colonoscopy, diagnostic VISIT ID: [id number] ENDOSCOPIST: Dr. Renzo Sweet MD BIRTHDATE: 1975 LENS EDGER: Martín Iraheta rn GENDER: male INDICATIONS: Diagnostic colonscopy and Constipation MEDICATIONS: See anesthesia notes MEDICATION START TIME: MD OUT TIME: DESCRIPTION OF PROCEDURE: After the ris ks benefits and alternatives of the procedure were thoroughly explained, in formed consent was obtained. Digital rectal exam performed and revealed no a bnormalities of the rectum. The [id number] ([id number]) endoscope was intro duced through the anus [...] complicati ons. IMPRESSION: Normal colonoscopy RECOMMENDATIONS: Call [phone] for prob lems REPEAT EXAM: Return in 10 years Colonos copy or as needed for changes.. CC: Jj Lopez Jr eSigned: Dr. Renzo Sweet MD 1 2:04 PM Name: Yolanda Ko, [id number] Radiology Report February 01, 2021 4:27pm Kenzie Padgett MD [facility] ULTRASOUND REPORT PATIENT NAME: YOLANDA KO 15 [...] have a copy on file here at [facility]? No O ctober 2018 1:44pm Pt has a Living Will? No June 25, 2019 1:44pm Do we have a copy on file here at [facility]? 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 No June 1:44pm Do we have a copy on file here at [facility]? No O ctober 2018 1:44pm Chief Complaint [...] Hemorrhage of anus and rectu m epididymitis Reason for Visit Epididymo-orchitis Epididymo-orchitis Epididymo-orchitis Change in bowel function Morbid obesity due to excess calories Smoker Encounters Encounter Location(s) Arrival/Admit Discharge/Depart Provider(s ) Date Date Departed [facility] April 08, 2020 April 08, 2020 [facility] 12:35am 1:22am Center-Emergency Department Departed [facility] April 08, 2020 April 08, 2020 [facility] 10:03am 12:39pm Center-Emergency Department Departed [facility] April 08, 2020 April 08, 2020 Manuel Figueroa [facility] 10:06am 10:07am , SRIDEVI [facility] Departed [facility] April 08, 2020 April 08, 2020 [facility] 9:44pm 10:10pm Center-Emergency Department Departed [facility] April 09, 2020 April 09, 2020 Jerome Joshi Physician/Prov Medical 8:23am 9:40am MD ider Office [facility] Visit news department intern Services Departed [facility] April 23, 2020 April 23, 2020 Jerome Joshi [facility] 8:43am 8:44am MD [facility] Departed [facility] June 04June 04, 2020 Jerome Joshi [facility] 2019 2:17pm 2:18pm MD [facility] Departed [facility] June 10, 2020 June 11, 2020 null Emergency Medical 11:46pm 1:27am Center-Emergency Department Departed [facility] June 18, 2020 June 18, 2020 CARLOTTA Morales [facility] 12:10pm 12:11pm Malick cazares [facility] Departed [facility] June 29June 29, 2020 Jerome Joshi Physician/[facility] Medical 2019 2:41pm 3:05pm MD ross Office [place] Visit news department intern Services Departed [facility] August 20, August 20, 2020 Quinn Lopez JR, [facility] Medical 2019 5:17pm 5:18pm [facility] Departed [facility] August 23August 23, 2020 Quinn Lopez JR, [facility] 2019 12:13pm 12:14pm DO [facility] Departed [facility] August 27August 27, 2020 Jerome mao [facility] 2019 3:26pm 3:27pm MD [facility] Departed [facility] September 17, 2020 September 17, 2020 Dedra Eastman Physician/[facility] Medical 3:47pm 4:46pm BRENDA ross Office [place] Medicine Departed [facility] September 24, September 24, 2020 Jerome Joshi Physician/[facility] Medical 2020 12:32pm 12:54pm MD ross Office [facility] Visit news department intern Services Departed [facility] December 07, 2020 December 07, 2020 Melody Robles Clinical Medical 7:45am 7:46am 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 [facility] Departed [facility] December 23, 2020 December 23, 2020 null Emergency Medical 3:24am 5:05am Center-Emergency Department Departed [facility] January 19, 2021 January 19, 2021 [facility] 5:02am 5:03am MD Micki [facility] Departed [facility] January 25, 2021 January 25, 2021 [facility] 12:06pm 3:09pm MD Micki [facility] Departed [facility] February 01, 2021 February 01, 2021 Jerome velez [facility] 3:29pm 3:30pm MD [facility] Recent Diagnosis Onset Date Epididymo-orchitis Epididymo-orchitis Epididymo-orchitis [...] available Insurance Providers Guarantor YOLANDA KO Address [address] [place] [address] Contact Info. Home Phone: Payer Policy Id Coverage Id Subscriber's Subscriber Id Effective E xpiration Name Date Date MEDICAID OF [id number] YOLANDA Lujan ANNALISA [id number] [place] [place] Self N/A Plan of [...] Lopez Work Phone: Alicia FUENTES JR, DO [address] [place] [address] Alicia MD [id number] Work Phone: [address] [place] A sanjeev Figueroa DIGITAL MARKETING ASSISTANT [place] [employer] [id number] Manuel Aguirre Work Phone: [address] [place] A sanjeev Figueroa DIGITAL MARKETING ASSISTANT [facility] [id number] Jerome Willoughby Work Phone: [facility] Urology MD Adi [address] [facility] , [address] [facility] [address] [address] Future Procedures Future procedure information [...]
--- OUTSIDE RECORDS SUMMARY | 2022-03-21 09:34 | XMS_ITS | Continuity of Care Document ---
:1975 Author Organization [facility] Address [address] [place] [address] Phone Care Team Providers Name Role Phone Out of Town, Provider Primary Care Provider Unavailable Carolina Agiurre Attending Provider Carolina Aguirre Primary Care Provider Kwaku Joshi Attending Provider Carmen Bañuelos Attending Provider Jj Lopez JR Attending Provider Jj Lopez JR Primary Care Provider Melody Robles Attending Provider Renzo Sweet Attending Provider Allergies, Adverse Reactions, Alerts Allergen Type Severity Reaction Last Updated Verified Status cephalexin Allergy gi upset January 13, 2021 8:38am Yes Active Medications Medication Status Dose Units [...] 8:35am Urine April 09, 1.025 Specific 2020 [place] 8:35am (Manual) POC Urine RBC April 09, Trace 2019 Intact 8:35am Urine pH April 09, 5.5 (Manual) 2020 8:35am POC Urine April 09, Negative Protein 2019 Confirmation 8:35am Urine April 09, 0.2 Urobilinogen 2019 (Manual) 8:35am Urine Nitrite April 09, Negative (Manual) 2019 8:35am Urine April 09, Negative Leukocyte 2019 Esterase 8:35am (Manual) White Blood December 8.70 4.8-10.8 MAIN LAB , [address] [facility] 2020 1000/[place]3 [place] [address] 3:40am White Blood August 12.00 4.8-10.8 MAIN LAB , [address] [place] [address] 2019 1000/[place]3 [place] [address] 12:01pm White Blood June 11.14 4.8-10.8 MAIN LAB , [address] [place] [address] Count 2019 1000/mm3 [place] [address] 12:25am White Blood April 08, 9.22 4.8-10.8 MAIN LA B, [address] [facility] 2019 1000/mm3 [place] [address] 12:03pm Red Blood December 5.05 M/mm3 4.70-6.00 MAIN LAB, [address] [place] [address] [place] [address] 3:40am Red Blood August 5.37 M/mm3 4.70-6.00 MAIN LAB, [address] [place] [address] [place] [address] 12:01pm Red Blood June 5.37 M/mm3 4.70-6.00 MAIN LAB, [address] [place] [address] Count 2019 [place] [address] 12:25am Red Blood April 08, 5.22 M/mm3 4.70-6.00 MAIN LAB , [address] [place] [address] 2019 [place] [address] 12:03pm Hemoglobin December 14.3 g/dL 14.0-18.0 MAIN LAB, [address] [place] [address] [place] [address] 3:40am Hemoglobin August 15.1 g/dL 14.0-18.0 MAIN LAB, [address] [place] [address] [place] [address] 12:01pm Hemoglobin June 15.1 g/dL 14.0-18.0 MAIN LAB, [address] [place] [address] 2019 [place] [address] 12:25am Hemoglobin April 08, 14.7 g/dL 14.0-18.0 MAIN LAB , [address] [place] [address] 2019 [place] [address] 12:03pm Hematocrit December 43.3 % 42-52 MAIN LAB, [address] [place] [address] 2020 [facility] [place] [address] 3:40am Hematocrit August 47.3 % 42-52 MAIN LAB, [address] [place] [address] 2019 [place] [address] 12:01pm Hematocrit June 46.7 % 42-52 MAIN LAB, [address] [place] [address] 2019 [place] [address] 12:25am Hematocrit April 08, 45.9 % 42-52 MAIN LAB , [address] [place] [address] 2019 [place] [address] 12:03pm Mean December 85.7 fL 80.0-94.0 MAIN LAB, [address] [place] [address] Corpuscular 2020 [place] [address] Volume 3:40am Mean August 88.1 fL 80.0-94.0 MAIN LAB, [address] [place] [address] Corpuscular 2019 [place] [address] Volume 12:01pm Mean June 87.0 fL 80.0-94.0 MAIN LAB, [address] [place] [address] [facility]uscutxr 2019 [place] [place] [address] Volume 12:25am Mean April 08, 87.9 fL 80.0-94.0 MAIN LAB, [address] [place] [address] [facility] 2019 [facility] [place] [address] Volume 12:03pm Mean December 28.3 pg 27-31 MAIN LAB, [address] [place] [address] Corpuscular 2020 [place] [address] Hemoglobin 3:40am Mean August 28.1 pg 27-31 MAIN LAB, [address] [place] [address] Corpuscular 2019 [place] [address] Hemoglobin 12:01pm Mean June 28.1 pg 27-31 MAIN LAB, 133 [facility] Corpuscular [address] [place] [address] Hemoglobin 12:25am Mean April 08, 28.2 pg 27- MAIN LAB, [address] [facility] Corpuscular [address] [place] [address] Hemoglobin 12:03pm Mean December 33.0 g/dL MAIN LAB, [address] [facility] Corpuscular [address] [place] [address] Hemoglobin 3:40am Concent Mean August 31.9 g/dL MAIN LAB, 133 [facility] Corpuscular [address] [place] [address] Hemoglobin 12:01pm Concent Mean June 32.3 g/dL MAIN LAB, 133 [facility] Corpuscular [address] [place] [address] Hemoglobin 12:25am Concent Mean April 08, 32.0 g/dL MAIN LAB, 133 [facility] Corpuscular 2019 [facility] [place] [address] Hemoglobin 12:03pm Concent Red Cell December 13.9 % 11.5-14.5 MAIN LAB, [address] [facility] Distribution 2020 [place] [address] Width 3:40am Red Cell August 14.0 % 11.5-14.5 MAIN LAB, [address] [place] [address] [place] [address] Width 12:01pm Red Cell June 14.1 % 11.5-14.5 MAIN LAB, [address] [place] [address] Distribution 2019 [place] [address] Width 12:25am Red Cell April 08, 14.0 % 11.5-14.5 MAIN LAB, 133 [facility] Distribution 2019 [place] [address] Width 12:03pm Platelet December 258 140-440 MAIN LAB, 133 [facility] Count 2020 1000/[place]3 [place] [address] 3:40am Platelet August 328 140-440 MAIN LAB, 133 [facility] Count 2019 1000/[place]3 [place] [address] 12:01pm Platelet June 276 140-440 MAIN LAB, 133 [facility] Count 2019 1000/[place]3 [place] [address] 12:25am Platelet April 08, 284 140-440 MAIN LAB, [address] [place] [address] Count 2019 1000/[place]3 [place] [address] 12:03pm Mean Platelet December 10.1 fL 7.4-10.4 MAIN L AB, [address] [place] [address] [place] [address] 3:40am Mean Platelet August 10.9 fL 7.4-10.4 MAIN L AB, [address] [place] [address] [place] [address] 12:01pm Mean Platelet June 10.3 fL 7.4-10.4 MAIN L AB, [address] [place] [address] Volume 2019 [place] [address] 12:25am Mean Platelet April 08, 10.4 fL 7.4-10.4 MAIN LAB, [address] [place] [address] Volume 2019 [place] [address] 12:03pm Neutrophils December 57.1 % 40.0-72.0 MAIN LAB , [address] [place] [address] (%) (Auto) [address] [place] [address] 3:40am Neutrophils August 62.1 % 40.0-72.0 MAIN LAB , [address] [place] [address] (%) (Auto) [address] [place] [address] 12:01pm Neutrophils October 70.9 % 40.0-72.0 MAIN LAB , [address] [place] [address] (%) (Auto) [address] [place] [address] 12:25am Neutrophils April 08, 60.7 % 40.0-72.0 MAIN LA B, [address] [place] [address] (%) (Auto) 2019 [place] [address] 12:03pm Lymphocytes 33.7 % 17-45 MAIN LAB , [address] [place] [address] (%) (Auto) [address] [place] [address] 3:40am Lymphocytes Parker 29.7 % 17-45 MAIN LAB , [address] [place] [address] (%) (Auto) [address] [place] [address] 12:01pm Lymphocytes October 20.0 % 17-45 MAIN LAB , [address] [place] [address] (%) (Auto) 2019 [place] [address] 12:25am Lymphocytes April 08, 28.7 % 17-45 MAIN LA B, [address] [place] [address] (%) (Auto) [address] [place] [address] 12:03pm Monocytes (%) December 6.0 % 3-11 MAIN L AB, [address] [place] [address] (Auto) 2020 [place] [address] 3:40am Monocytes (%) August 5.9 % 3-11 MAIN L AB, [address] [place] [address] (Auto) 2019 [place] [address] 12:01pm Monocytes (%) June 6.3 % 3-11 MAIN L AB, [address] [place] [address] (Auto) 2019 [place] [address] 12:25am Monocytes (%) April 08, 6.4 % 3-11 MAIN LAB, [address] [place] [address] (Auto) 2019 [place] [address] 12:03pm Eosinophils 2.2 % 0-3 MAIN LAB , [address] [place] [address] (%) (Auto) [address] [place] [address] 3:40am Eosinophils August 1.3 % 0-3 MAIN LAB , [address] [place] [address] (%) (Auto) [address] [place] [address] 12:01pm Eosinophils June 1.6 % 0-3 MAIN LAB , [address] [place] [address] (%) (Auto) [address] [place] [address] 12:25am Eosinophils April 08, 2.7 % 0-3 MAIN LA B, [address] [place] [address] (%) (Auto) [address] [place] [address] 12:03pm Basophils (%) December 0.7 % 0-1 MAIN L AB, [address] [place] [address] (Auto) 2020 [place] [address] 3:40am Basophils (%) August 0.6 % 0-1 MAIN L AB, [address] [place] [address] (Auto) 2019 [place] [address] 12:01pm Basophils (%) June 0.7 % 0-1 MAIN L AB, [address] [place] [address] (Auto) 2019 [place] [address] 12:25am Basophils (%) April 08, 0.7 % 0-1 MAIN LAB, [address] [place] [address] (Auto) 2019 [place] [address] 12:03pm Immature 0.3 % 0-1 MAIN LAB, [address] [place] [address] Granulocyte % 2020 [place] [address] (Auto) 3:40am Immature August 0.4 % 0-1 MAIN LAB, [address] [place] [address] Granulocyte % 2019 [place] [address] (Auto) 12:01pm Immature June 0.5 % 0-1 MAIN LAB, [address] [place] [address] Granulocyte % [address] [place] [address] (Auto) 12:25am Immature April 08, 0.8 % 0-1 MAIN LAB, [address] [place] [address] Granulocyte % 2019 [place] [address] (Auto) 12:03pm Neutrophils # December 4.97 1.4-6.5 MAIN L AB, [address] [place] [address] (Auto) 2020 1000/[place]3 [place] [address] 3:40am Neutrophils # August 7.45 1.4-6.5 MAIN L AB, [address] [place] [address] (Auto) 2019 1000/[place]3 [place] [address] 12:01pm Neutrophils # June 7.89 1.4-6.5 MAIN L AB, [address] [place] [address] (Auto) 2019 1000/mm3 [place] [address] 12:25am Neutrophils # April 08, 5.60 1.4-6.5 MAIN LAB, [address] [place] [address] (Auto) 2019 1000/mm3 [place] [address] 12:03pm Lymphocytes # December 2.93 1.2-3.4 MAIN L AB, [address] [place] [address] (Auto) 2020 1000/[place] [place] [address] 3:40am Lymphocytes # August 3.56 1.2-3.4 MAIN L AB, [address] [place] [address] (Auto) 2019 1000/[place]3 [place] [address] 12:01pm Lymphocytes # June 2.23 1.2-3.4 MAIN L AB, [address] [place] [address] (Auto) 2019 1000/mm3 [place] [address] 12:25am Lymphocytes # April 08, 2.65 1.2-3.4 MAIN LAB, [address] [place] [address] (Auto) 2019 1000/mm3 [place] [address] 12:03pm Monocytes # December 0.52 0.0-0.8 MAIN LAB , [address] [place] [address] (Auto) 2020 1000/[place]3 [place] [address] 3:40am Monocytes # August 0.71 0.0-0.8 MAIN LAB , [address] [place] [address] (Auto) 2019 1000/[place]3 [place] [address] 12:01pm Monocytes # June 0.70 0.0-0.8 MAIN LAB , [address] [place] [address] (Auto) 2019 1000/mm3 [place] [address] 12:25am Monocytes # April 08, 0.59 0.0-0.8 MAIN LA B, [address] [place] [address] (Auto) 2019 1000/mm3 [place] [address] 12:03pm Eosinophils # 0.19 0.0-0.7 MAIN L AB, [address] [place] [address] (Auto) 2020 1000/[place] [place] [address] 3:40am Eosinophils # Parker 0.16 0.0-0.7 MAIN L AB, [address] [place] [address] (Auto) 2019 1000/[place]3 [place] [address] 12:01pm Eosinophils # October 0.18 0.0-0.7 MAIN L AB, [address] [place] [address] (Auto) 2019 1000/mm3 [place] [address] 12:25am Eosinophils # April 08, 0.25 0.0-0.7 MAIN LAB, [address] [place] [address] (Auto) 2019 1000/mm3 [place] [address] 12:03pm Basophils # 0.06 0.0-0.1 MAIN LAB , [address] [place] [address] (Auto) 2020 1000/[place]3 [place] [address] 3:40am Basophils # Parker 0.07 0.0-0.1 MAIN LAB , [address] [place] [address] (Auto) 2019 1000/[place]3 [place] [address] 12:01pm Basophils # October 0.08 0.0-0.1 MAIN LAB , [address] [place] [address] (Auto) 2019 1000/mm3 [place] [address] 12:25am Basophils # April 08, 0.06 0.0-0.1 MAIN LA B, [address] [place] [address] (Auto) 2019 1000/mm3 [place] [address] 12:03pm Absolute 0.0 0-1 MAIN LAB, [address] [place] [address] [place] [address] Granulocyte 3:40am (auto Absolute August 0.1 0-1 MAIN LAB, [address] [place] [address] [place] [address] Granulocyte 12:01pm (auto Absolute June 0.1 0-1 MAIN LAB, [address] [place] [address] Immature 2019 [place] [address] Granulocyte 12:25am (auto Absolute April 08, 0.1 0-1 MAIN LAB, [address] [place] [address] 2019 [place] [address] Granulocyte 12:03pm (auto Differential December Automated MAIN LA B, [address] [place] [address] [place] [address] 3:40am Differential August Automated MAIN LA B, [address] [place] [address] [place] [address] 12:01pm Differential June Automated MAIN LA B, [address] [place] [address] Method 2019 [place] [address] 12:25am Differential April 08, Automated MAIN L AB, [address] [place] [address] Method 2019 [place] [address] 12:03pm Sodium Level December 140 mmol/L 137-145 MAIN L AB, [address] [place] [address] [place] [address] 3:40am Sodium Level August 137 mmol/L 137-145 MAIN L AB, [address] [place] [address] [place] [address] 12:01pm Sodium Level June 138 mmol/L 137-145 MAIN L AB, [address] [place] [address] 2019 [place] [address] 12:25am Potassium December 3.5 mmol/L 3.6-5.0 MAIN LAB, [address] [place] [address] [place] [address] 3:40am Potassium August 4.3 mmol/L 3.6-5.0 MAIN LAB, [address] [place] [address] [place] [address] 12:01pm Potassium June 3.6 mmol/L 3.6-5.0 MAIN LAB, [address] [place] [address] 2019 [place] [address] 12:25am Chloride December 105 mmol/L 98-107 MAIN LAB, [address] [place] [address] [place] [address] 3:40am Chloride August 105 mmol/L 98-107 MAIN LAB, 133 [facility] Level [address] [place] [address] 12:01pm Chloride June 103 mmol/L 98-107 MAIN LAB, [address] [place] [address] Level 2019 [place] [address] 12:25am Carbon December 29 mmol/L -30 MAIN LAB, [address] [place] [address] [place] [address] 3:40am Carbon August 26 mmol/L MAIN LAB, 133 [facility] Dioxide Level [address] [place] [address] 12:01pm Carbon June 29 mmol/L - MAIN LAB, [address] [place] [address] Dioxide [place] [address] [place] [address] 12:25am Anion Gap December 1403-25 MAIN LAB, [address] [place] [address] [place] [address] 3:40am Anion Gap August 1503-25 MAIN LAB, [address] [place] [address] [place] [address] 12:01pm Anion Gap June 1503-25 MAIN LAB, [address] [place] [address] 2019 [place] [address] 12:25am Blood Urea December 11 mg/dL 05-05 MAIN LAB, [address] [place] [address] [place] [address] 3:40am Blood Urea August 12 mg/dL 05-05 MAIN LAB, [address] [place] [address] [place] [address] 12:01pm Blood Urea June 13 mg/dL 05-05 MAIN LAB, [address] [place] [address] 2019 [place] [address] 12:25am Creatinine December 0.85 mg/dL 0.66-1.25 MAIN LAB , [address] [place] [address] [place] [address] 3:40am Creatinine August 0.95 mg/dL 0.66-1.25 MAIN LAB , [address] [place] [address] [place] [address] 12:01pm Creatinine June 0.97 mg/dL 0.66-1.25 MAIN LAB , [address] [place] [address] 2019 [place] [address] 12:25am Glomerular December > 60 >60.0 MAIN LAB, [address] [place] [address] Filtration 2020 mL/[place] [address] Rate Calc 3:40am Glomerular August > 60 >60.0 MAIN LAB, [address] [place] [address] Filtration 2019 mL/[place] [address] Rate Calc 12:01pm Glomerular June > 60 >60.0 MAIN LAB, [address] [place] [address] Filtration 2019 mL/[place] [address] Rate Calc 12:25am Glucose Level December 121 mg/dL 70-100 MAIN L AB, [address] [place] [address] [place] [address] 3:40am Glucose Level August 101 mg/dL 70-100 MAIN L AB, [address] [place] [address] [place] [address] 12:01pm Glucose Level June 125 mg/dL 70-100 MAIN L AB, [address] [place] [address] 2019 [place] [address] 12:25am Calcium Level December 8.5 mg/dL 8.4-10.2 MAIN L AB, [address] [place] [address] [place] [address] 3:40am Calcium Level August 9.4 mg/dL 8.4-10.2 MAIN L AB, [address] [place] [address] [place] [address] 12:01pm Calcium Level June 9.1 mg/dL 8.4-10.2 MAIN L AB, [address] [place] [address] 2019 [place] [address] 12:25am Calcium August 9.6 mg/dL 8.4-10.2 MAIN LAB, [address] [place] [address] [place] [address] Albumin 12:01pm Calcium June 9.3 mg/dL 8.4-10.2 MAIN LAB, [address] [place] [address] [place] [address] Albumin 12:25am Magnesium December 2.0 mg/dL 1.6-2.3 MAIN LAB, [address] [place] [address] [place] [address] 3:40am Total August 0.5 mg/dL 0.2-1.3 MAIN LAB, [address] [place] [address] [place] [address] 12:01pm Total June 0.3 mg/dL 0.2-1.3 MAIN LAB, [address] [place] [address] Bilirubin 2019 [place] [address] 12:25am Aspartate August 34 U/L MAIN LAB, [address] [place] [address] Amino Transf [address] [place] [address] (AST/SGOT) 12:01pm Aspartate June 34 U/L MAIN LAB, [address] [place] [address] Amino Transf [facility] [place] [address] (AST/SGOT) 12:25am Alanine August 50 U/L <50 As of 01/09/20, MAIN L AB, [address] [place] [address] Aminotransfer [address] [place] [facility] [place] [address] ase 12:01pm Range for (ALT/SGPT) ALT/SGPT for adult patients has been updated. The Reference Range for ALT/SGPT has not been established for patients <18 years of age. Alanine June 48 U/L <50 As of 01/09/20, MAIN L AB, [address] [place] [address] [address] [place] [address] ase 12:25am Range for (ALT/SGPT) ALT/SGPT for adult patients has been updated. The Reference Range for ALT/SGPT has not been established for patients <18 years of age. Troponin I December < 0.012 0-0.034 Reference Range: MA IN LAB, [address] [place] [address] 2020 ng/mL <0.034 ng/[place] [facility] [place] [address] 3:40am Cut-off 0.120 ng/mLThe results of this assay can be falsely decreased in patients who consume Biotin. Troponin I June < 0.012 0-0.034 Reference Range: [place] IN LAB, [address] [place] [address] 2019 ng/mL <0.034 ng/[place] [address] 12:25am Cut-off 0.120 ng/mLThe results of this assay can be falsely decreased in patients who consume Biotin. Total Protein August 7.3 g/dL 6.3-8.2 MAIN L AB, [address] [place] [address] [place] [address] 12:01pm Total Protein June 7.4 g/dL 6.3-8.2 MAIN L AB, 133 [facility] 2019 [facility] [address] 12:25am Albumin August 4.0 g/dL 3.5-5.0 MAIN LAB, [address] [place] [address] 2019 [facility] [place] [address] 12:01pm Albumin June 4.1 g/dL 3.5-5.0 MAIN LAB, [address] [place] [address] 2019 [facility] [address] 12:25am Cholesterol August 229 mg/dL 59-199 MAIN LAB , [address] [place] [address] 2019 [facility] [place] [address] 12:01pm HDL August 33 mg/dL 40-60 [facility] MAIN LA B, [address] [place] [address] Cholesterol 2019 Cholesterol [facility] A [facility] [address] 12:01pm Education Program (NCEP) has set the following guidelines (reference values) for cholesterol, HDL:Low HDL: <40 mg/dLNormal: 40-60 mg/dLDesirable: >60 mg/dL LDL August 145.0 0-129 MAIN LAB, [address] [place] [address] Cholesterol 2019 mg/[place] [address] 12:01pm VLDL August 51.0 mg/dL 0-32 MAIN LAB, [address] [place] [address] Cholesterol 2019 [facility] [address] 12:01pm Cholesterol/H August 6.93 0-3.9 MAIN L AB, [address] [place] [address] DL Ratio 2019 [facility] [place] [address] 12:01pm Triglycerides August 255 mg/dL 0-149 MAIN L AB, [address] [place] [address] Level 2019 [facility] [place] [address] 12:01pm Alkaline August 103 U/L 38-126 MAIN LAB, [address] [place] [address] Phosphatase 2019 [place] [address] 12:01pm Alkaline June 92 U/L 38-126 MAIN LAB, [address] [place] [address] Phosphatase 2019 [facility] [place] [address] 12:25am Thyroid August 1.89 mlU/L 0.47-4.68 The results of MAIN LAB, [address] [place] [address] Stimulating 2019 this assay [place] [address] Hormone (TSH) 12:01pm be falsely decreased in patients who consume Biotin. SARS-CoV-2 May 12th, Negative Negative This test is MAIN L AB, [address] RNA (RT-PCR) 2020 [place] [address] 1:00pm under the Food and Drug Administration's [...] sheets for providers can be found at: [employer]/ 6388/downloadFac t sheets for patients can be found at: [employer]/ 4380/download SARS-CoV-2 November Negative Negative This test is [facility] ([facility] 2020 [place] [address] 11:00am under the Food and Drug Administration's [...] sheets for providers can be found at: [employer]/ 1094/downloadFac t sheets for patients can be found at: [employer]/ 4459/download Diagnostic Imaging Reports Report Dictated Date/Time Dictated By Status Radiology Report April 08, 2020 10:52am [facility] PATIENT NAME: YOLANDA FANG 13 [...] 11:17am Tori Millan MD co mpleted [facility] RADIOLOGY REPORT PATIENT NAME: YOLANDA FANG [...] 11:18am Tori Millan MD co mpleted [facility] RADIOLOGY REPORT PATIENT NAME: YOLANDA FANG 15 DATE OF : 1975 ATTENDING/ER PHYSICIAN: Carolina perez SENSOR OPERATOR ER/ATTENDING PHYSICIAN: PRIMARY CARE PHYS: Out [...] 2020 9:27am Tori Millan MD c ompleted [facility] ULTRASOUND REPORT PATIENT NAME: YOLANDA FANG 15 DATE OF : 1975 ATTENDING/ER PHYSICIAN: Jerome ruiz MD ER/ATTENDING PHYSICIAN: PRIMARY CARE PHYS: Carolina Aguirre SENSOR OPERATOR ADMITTING PHYSICIAN: CONSULTING PHYSICIAN: PROCEDURE DATE: 04/23/20 REPORT STATUS: Signed DICTATING PHYSICIAN: Tori Millan MD REASON FOR EXAM: orchitis STUDY: US Testicles (Scrotal). TECHNIQUE: grayscale and color flow maddei ges of the testes were obtained. FINDINGS: [...] 04, 2020 2:34pm Jaye Scott MD completed [facility] ULTRASOUND REPORT PATIENT NAME: YOLANDA FANG [...] ATTENDING PHYSICIAN: PRIMARY CARE PHYS: Carolina Aguirre SENSOR OPERATOR DICTATING PHYSICIAN: Roscoe Guerrero MD REPORT STATUS: [...] August 23, 2020 12:30pm Mario Guzmán completed [facility] CAT SCAN REPORT PATIENT NAME: YOLANDA FANG 15 DATE OF : 1975 ATTENDING/ER PHYSICIAN: Jj Lopez JR , DO ER/ATTENDING PHYSICIAN: PRIMARY CARE PHYS: Carolina Aguirre SENSOR OPERATOR ADMITTING PHYSICIAN: CONSULTING PHYSICIAN: PROCEDURE DATE: 08/23/20 [...] [facility] RE[facility] PATIENT NAME: YOLANDA FANG [...] [facility] [facility] PATIENT NAME: YOLANDA FANG 15 [...] have a copy on file here at [facility]? No O ctober 2018 1:44pm Pt has a Living Will? No June 25, 2019 1:44pm Do we have a copy on file here at [facility]? No O ctober 2018 1:44pm Pt has a Power of Boiler Assistant Operator? No June 1:44pm Do we have a copy on file here at [facility]? No O ctober 2018 1:44pm Chief Complaint [...] Arrival/Admit Discharge/Depart Provider(s ) Date Date Departed [facility] April 08, 2020 April 08, 2020 null Emergency Medical 12:35am 1:22am Center-Emergency Department Departed [facility] April 08, 2020 April 08, 2020 null Emergency Medical 10:03am 12:39pm Center-Emergency Department Departed [facility] April 08, 2020 April 08, 2020 Manuel Aguirre [facility] 10:06am 10:07am , SRIDEVI [facility] Departed [facility] April 08, 2020 April 08, 2020 null Emergency Medical 9:44pm 10:10pm Center-Emergency Department Departed [facility] April 09, 2020 April 09, 2020 Jerome Joshi Physician/Prov Medical 8:23am 9:40am MD [facility] Visit manager rn case Services Departed [facility] April 23, 2020 April 23, 2020 Jerome younger [facility] 8:43am 8:44am MD [facility] Departed [facility] June 04June 04, 2020 Jerome cordova [facility] 2019 2:17pm 2:18pm MD [facility] Departed [facility] June 10, 2020 June 11, 2020 null Emergency Medical 11:46pm 1:27am Center-Emergency Department Departed [facility] June 18, 2020 June 18, 2020 CARLOTTA Morales [facility] 12:10pm 12:11pm Héctoramy debora [facility] Departed [facility] June 29, June 29, 2020 Jerome Joshi Physician/[facility] 2019 2:41pm 3:05pm MD pricer Office [facility] Visit manager rn case Services Departed [facility] August 20, August 20, 2020 Quinn Lopez JR, [facility] 2019 5:17pm 5:18pm [facility] Departed [facility] August 23, August 23, 2020 Quinn Lopez JR, Clinical [facility]- 2019 12:13pm 12:14pm DO [facility] Departed [facility] August 27, August 27, 2020 Jerome mao [facility] 2019 3:26pm 3:27pm MD [facility] Departed [facility] September 17, 2020 September 17, 2020 Dedra Eastman Physician/Prov Medical 3:47pm 4:46pm BRENDA [facility] Departed [facility] September 24, September 24, 2020 Jerome Joshi Physician/Prov Medical 2020 12:32pm 12:54pm MD [facility] Visit manager rn case Services Departed [facility] December 07, 2020 December 07, 2020 Melody Robles Clinical Medical 7:45am 7:46am [facility] Departed [facility] December 23, 2020 December 23, 2020 null Emergency Medical 3:24am 5:05am Center-Emergency Department Departed [facility] January 19, 2021 January 19, 2021 [facility] 5:02am 5:03am MD Micki [facility] Recent Diagnosis Onset Date Epididymo-orchitis Epididymo-orchitis Epididymo-orchitis Assessments Diagnosis Onset Date Resolution Status Epididymo-orchitis acute Epididymo-orchitis acute Epididymo-orchitis acute Family History Relationship Condition Age at Onset Recorded Date/Ti me Not Specified Polyp of colon Unknown Functional Status No Functional Status information available Goals Goals may be documented in an alternate section. Mental Status Observation Response Date Recorded Comprehension Ability Understands Concepts April 08, 2020 1 2:50am Medical Equipment No Medical Equipment Information available Insurance Providers Guarantor YOLANDA FANG Address [address] [place], [place] [phone] Contact Info. 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 [employer] [phone] A Timothy Work Phone: [address] [place] , SENSOR OPERATOR [facility] [phone] Jerome Willoughby Work Phone: [facility] Urology MD Adi [facility] , [facility] [address] [address] Future Procedures Future procedure information [...] of Observation Smokes tobacco daily (finding) January 13, 2021 2:20pm Observation Status Observation Response Date of Response Alcohol Use Yes January 13, 2021 2:20pm alcohol intake frequency holidays/special occasions only January 13, 2021 2:20pm Substance/Street Drug Use Yes January 13, 2021 2:20pm Substance Use Treatment No December 23, 2020 4:58am substance use type marijuana January 13, 2021 8:40am Smoking Status Current every day smoker January 13, 2021 2 :20pm Assigned Sex Male Vital Signs Vital Reading [...] 2 020 2:47pm Heart Rate 114 /min 60-June [...] 11:36am Heart Rate 109 /min 60-100 September 24, 11:36am Respiratory rate 18 /min -September 24, [...]
--- OUTSIDE RECORDS SUMMARY | 2022-03-21 09:35 | XMS_ITS | Encounter Summary ---
:1975 Author Organization [facility] Address [address] [place] [address] Care Team Providers Name Role Phone Pamela Petty MD Primary Care Provider Reason for Visit Reason Onset Date Comments Results 11/01/2018 Encounter Details Date Type Department Care Team Description 11/01/2018 Telephone [facility] [place] Results Program - S Anand Morgan MD [address] [place] [address] [place] [phone] (Wo rk) Social History Tobacco Use Types Packs/Day Years Used Date Former Smoker 0.25 17 Started: 06/18 Smokeless Tobacco: Never Used Alcohol Use Standard Drinks/Week Comments Yes 0 (1 standard drink = 0.6 oz pure alcoho l) occasionally Alcohol Habits Answer Date Recorded How often do you have a drink containing alcohol? Not asked How many drinks containing alcohol do you have on a Not aske d typical day when you are drinking? How often do you have six or more drinks on one occasion? No t asked Comment: occasionally 05/06/2013 Sex Assigned at Date Recorded Not on file documented as of this encounter Functional Status Functional Status Response Date of Assessment Because of a physical, mental, or emotional condition, No 08/25/2015 does this person have difficulty doing errands alone such as visiting a doctor's office or shopping? Cognitive Status Response Date of Assessment Because of a physical, mental, or emotional condition, No 08/25/2015 does this person have serious difficulty concentrating, remembering, or making decisions? documented as of this encounter Miscellaneous Notes Telephone Encounter - El Sinclair MD - 11/11/2018 0927 EST I contacted patient by phone today. The results of his diagnostic polysomnogram were reviewed (CPAP was not applied during study). He was initially reluctant to pursue recommended positive airway pressure titration and subsequent therapy given previous difficulty on auto CPAP. The patient was reminded of the risks of untreated sleep apnea to include but not limited to hypertension, diabetes, myocardial infarction, stroke, heart failure, cognitive dysfunction, mood disturbance, insomnia, and sleepiness. 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 He was informed of oral appliance therapy with current monitoring technology. Surgical options were discussed. He was also informed that it was this physician's recommendation that he pursue positive airway pressure therapy based on the severity of his sleep disordered breathing. As referenced above patient has previously had difficulty tolerating auto CPAP. It is likely that hewill require bilevel positive airway pressure therapy. This was discussed in detail during the phonecall. He stated that he had difficulty sleeping in the laboratory recliner. He therefore may choose to sleep in the recliner again versus a sleep center bed during positive airway pressure titration study. Positive airway pressure titration will be scheduled. After testing the patient will be prescribed aflow generator from a [employer] company of his choice. He will follow-up for a flow generator compliance visit. elephone Encounter - Bradley Roque - 11/01/2018 1426 EST called for results from sleep study. Advised with 2-week waiting time. Pt advised they are waiting on results for CDL. documented in this encounter Plan of Treatment Upcoming Encounters Date Type Specialty Care Team Description 05/08/2022 Telemedicine Sleep Medicine El Sinclair Jr., MD [address] [place] [address], [address] [place], [place] [phone] (Wo rk) documented as of this encounter Visit Diagnoses Not on filedocumented in this encounter Care Teams Ice Handler Relationship Specialty Start Date End Date Pamela Petty MD PCP - General 10/07/15 02/08/20 [address] [place] [address] documented as of this encounter
--- OUTSIDE RECORDS SUMMARY | 2022-03-21 09:35 | XMS_ITS | Encounter Summary ---
:1975 Author Organization [facility] Address [address] [place] [address] Care Team Providers Name Role Phone Unknown, Provider Primary Care Provider Reason for Visit (Routine) - Receiving Office to Obtain Authorization Specialty Diagnoses / Procedures Referred By Contact Refer red To Contact Procedures Unknown, Provider, XR OUTSIDE IMAGES MSK Phone: Referral ID Status Reason Start Expiration Visits Visits Date Date Requested Authorized [id number] Receiving Office 04/09/2020 1 1 to Obtain Authorization Encounter Details Date Type Department Care Team Description 04/08/2020 Hospital Encounter [facility] Radiology - Main [place] [address] [place] [address] Social History Tobacco Use Types Packs/Day Years Used Date Current Every Day Smoker 1 17 Sta rted: 06/18/2018 Smokeless Tobacco: Never Used Alcohol Use Standard [...] Assigned at Date Recorded Not on file COVID-19 Exposure Response Date Recorded In the last month, have you been in contact with No / Unsure 04/08/2020 22:50 EDT someone who was confirmed or suspected to have Coronavirus / COVID-19? documented as of this encounter Functional Status [...] making decisions? documented as of this encounter Medications at Time of Discharge Medication Sig Dispensed Refills Start Date End Date ibuprofen (MOTRIN) 600 Take 600 mg by mouth 0 mg tablet as needed for Pain. Patient taking 1200 mg BID OMEGA-3S/DHA/EPA/FISH Take by mouth daily. 0 02/26/2021 OIL (OMEGA 3 ORAL) documented as of this encounter Discharge Disposition Disposition Code Departure Means Destination Home or Self Care documented in this encounter Plan of Treatment Upcoming Encounters Date Type Specialty Care Team Description 05/08/2022 Telemedicine Sleep Medicine El Sinclair Jr., MD [address] [place] [address] [address] [place], [place] [phone] (Wo rk) documented as of this encounter Procedures Procedure Name Priority Date/Time Associated Diagnosis Comme nts US OUTSIDE IMAGES Routine 04/09/2020 6:11 EDT Res ults for this BODY procedure are i n the results section. XR OUTSIDE IMAGES Routine 04/09/2020 6:10 EDT Res ults for this NEURO procedure are i n the results section. XR OUTSIDE IMAGES Routine 04/09/2020 6:10 EDT Res ults for this MSK procedure are i n the results section. documented in this encounter Results US OUTSIDE IMAGES BODY (04/09/2020 6:11 EDT) Specimen Narrative MCKESSON - 04/09/2020 6:11 EDT This is a non-reportable exam. Performing Organization Address [facility] Code Phon e Number MCKESSON XR OUTSIDE IMAGES NEURO (04/09/2020 6:10 EDT) Specimen Narrative MCKESSON - 04/09/2020 6:10 EDT This is a non-reportable exam. Performing Organization Address [facility] Phon e Number MCKESSON XR OUTSIDE IMAGES MSK (04/09/2020 6:10 EDT) Specimen Narrative MCKESSON - 04/09/2020 6:10 EDT This is a non-reportable exam. Performing Organization Address [facility] Phon e Number MCKESSON documented in this encounter Visit Diagnoses Not on filedocumented in this encounter Care Teams Associate Professor Relationship Specialty Start Date End Date Unknown, Provider, PCP - General 03/05/20 10/21/20 documented as of this encounter
--- OUTSIDE RECORDS SUMMARY | 2022-03-21 09:35 | XMS_ITS | Encounter Summary ---
:1975 Author Organization [facility] Address [address] [place] [address] Care Team Providers Name Role Phone Unknown, Provider MD Primary Care Provider Reason for Visit Reason Comments Groin Pain Pt states he was seen at out side hospital diagnosed with abcess on testicle and told you need surgery. Pt reports pain started two days ago, ultrasound showed epidi timitis. Pt states pain has increased. Encounter Details Date Type Department Care Team Description 04/08/2020 - Emergency [facility] Donis Bey MD 111 [facility], [address] [phone] Orchitis and 04/09/2020 Emergency Department Marlon Schrader MD [address] [phone] epididymitis ([facility]) [address] [place], [place] [id number] Social History Tobacco Use Types Packs/Day Years [...] / COVID-19? documented as of this encounter Last Filed Vital Signs Vital Sign Reading Time Taken Comments Blood Pressure 199/111 04/08/20202249 EDT Pulse 120 04/08/20202249 EDT Temperature 36.7 ??C (98.1 ??F) 04/08/20202249 EDT Respiratory Rate 18 04/08/20202249 EDT Oxygen Saturation 95% 04/08/20202249 EDT Inhaled Oxygen Concentration - - Weight 199.6 kg (440 lb) 04/08/20202249 EDT Height 193 cm (6' 4) 04/08/20202249 EDT Body Mass Index 53.56 04/08/20202249 EDT documented in this encounter Functional Status Functional Status Response [...] making decisions? documented as of this encounter Discharge Instructions Marlon Ambriz MD - 04/09/2020 Thank you for coming to the ED at [facility] for your medical care. Whenever we see you in the emergency department we are getting a snapshot of your medical condition. Things can change and even small changes might alter how we care for you. If your symptoms change in a way that concerns you or makes you unsure, please return for re-evaluation. We are here 24 hours a day, every day of the year, so do nothesitate to return. You were seen in the emergency department today for scrotal swelling and testicular pain. You had a urology consult, and they reviewed your ultrasound. They do not think you currently have a scrotal abscess, although it is possible this could develop over time. We recommend to do the following: (1) Continue taking Levaquin once a day as directed. (2) take Motrin 400 to 600 mg (this is also known as ibuprofen or Advil) every 4-6 hours as needed for pain. (3) Wear brief underwear (tighty- whities) (4) you can wrap a cloth around some ice and apply that to the area as well. Return to the emergency department if you have worsening pain, worsening swelling, high fevers or other concerning symptoms. documented in this encounter Medications at Time of Discharge Medication Sig Dispensed Refills Start Date End Date gabapentin (NEURONTIN) Take 600 mg by mouth 0 300 mg capsule daily. Has been taking 600 mg BID ibuprofen (MOTRIN) 600 mg Take 600 mg by mouth 0 tablet as needed for Pain. Patient taking 1200 mg BID levOFLOXacin (LEVAQUIN) Take 750 mg by mouth 0 02/26/2021 750 mg tablet daily. OMEGA-3S/DHA/EPA/FISH OIL Take by mouth daily. 0 02/26/2021 (OMEGA 3 ORAL) documented as of this encounter Discharge Disposition Disposition Code Departure Means Destination Home or Self Prison documented in this encounter Consult Notes Lopez Lester MD - 04/08/2020 2326 EDT [facility] Urologic Surgery Emergency Department Consult Note Admit Date: 04/08/2020 Date of Service: 04/08/2020 PCP: Provider Unknown Requesting Attending: Mihir Bey MD Specialty Completing Consult: Urologic Surgery Consulting Attending: Mickey Atkinson MD Chief Complaint: Groin pain Reason for Consult: Evaluation of testicular pain. HPI: is a 44 y.o. male with no past medical history, who developed left scrotal pain two nights agothat has progressively worsened. [facility] ED yesterday morning with groin pain, with him returning in the AM for an ultrasound and diagnosed with epididymitis and prescribed Levofloxacin. He has been taking it as prescribed but has not been taking any pain medications. He denies any urinary symptoms, frequency, urgency, hematuria, dysuria, nocturia. No history of UTIs. Never seen a Urology previously. Nofevers, chills, abdominal pain, nausea, vomiting, chest pain, shortness of breath. Having regular bowel movements. The patient denies any history of familial urological malignancy. Past Medical History: Diagnosis Date ??? Jones's palsy ??? Sleep apnea Past Surgical History: Procedure Laterality Date ??? EXTERNAL AUDITORY CANAL RECONSTRUCTION ??? TYMPANOSTOMY TUBE PLACEMENT Social History Tobacco Use ??? Smoking status: Current Every Day Smoker Packs/day: 1.00 Years: 17.00 Pack years: 17.00 Start date: 06/18/2018 ??? Smokeless tobacco: Never Used Substance Use Topics ??? Alcohol use: Yes Comment: occasionally No family history on file. No current facility-administered medications on file prior to encounter. Current Outpatient Medications on File Prior to Encounter Medication Sig Dispense Refill ??? gabapentin (NEURONTIN) 100 mg capsule Take 100 mg by mouth 3 times daily. ??? ibuprofen (MOTRIN) 600 mg tablet Take 600 mg by mouth as needed for Pain. ??? levOFLOXacin (LEVAQUIN) 750 mg tablet Take 750 mg by mouth daily. ??? OMEGA-3S/DHA/EPA/FISH OIL (OMEGA 3 ORAL) Take by mouth daily. Allergies Allergen Reactions ??? Keflex [Cephalexin] Nausea And Vomiting Review of Systems: Pertinent items are noted in Subjective/HPI Objective/Physical Exam: Vital Signs: Patient Vitals for the past 8 hrs: BP Pulse Resp Temp SpO2 04/08/20 2250 (!) 199/111 (!) 120 18 36.7 ??C (98.1 ??F) 95 % Weight: Weight : (!) 199.6 kg (440 lb) Height: Height: (!) 193 cm (76) I and O: No intake/output data recorded. Gen: Alert, non-toxic appearing, in no distress, morbidly obese Pulm: Normal effort, unlabored Abd: Soft, non distended, non tender to palpation Back: No CVA tenderness. Genital: Circumcised phallus with patent meatus at the tip, no plaques. Testes descended bilaterally. Minimal fluid surrounding left testicle, left epididmis enlarged. Left scrotum erythematous and warm, exquisitely tender to palpation, skin is not fixed over epididymis. Musculoskeletal: No gross motor deficits Neuro: Coherent and fluent speech Data Review: Labs: CBC: Lab Results Component Value Date WBC 11.07 (H) 04/08/2020 RBC 4.72 04/08/2020 HGB 13.3 (L) 04/08/2020 HCT 40.7 04/08/2020 MCV 86 04/08/2020 MCH 28.2 04/08/2020 MCHC 32.7 (L) 04/08/2020 PLT 285 04/08/2020 NEUTROABS 6.64 04/08/2020 SEDRATE 10 01/22/2013 BMP: Lab Results Component Value Date NA 140 04/08/2020 K 4.1 04/08/2020 CL 105 04/08/2020 CO2 28 04/08/2020 BUN 14 04/08/2020 CREATININE 0.85 04/08/2020 CALCIUM 9.0 04/08/2020 MG 2.1 12/02/2016 LABALBU 3.5 04/08/2020 U/A: Lab Results Component Value Date CLARITYU Clear 12/02/2016 LABSPEC 1.025 09/05/2010 PHUR 6.0 09/05/2010 GLUCOSEU Negative 09/05/2010 BILIRUBINUR 2+ (A) 09/05/2010 KETONES Neg 12/02/2016 Imaging: I have independently visualized the ultrasound. There is an are of hypodensity in the left testicle with decreased doppler. Skin is thickened in left scrotum. Impression: Brian Ko is a 44 y.o. male otherwise healthy, morbidly obese, who presents with left scrotal pain. Ultrasound and exam are consistent with epidermitis/orchitis. Possibly a developing abscess in left testicle, but no obvious abscess currently. He is afebrile, non-toxic, mildly elevated WBC of 11. Appropriate treatment initiated, he should complete his antibiotic course. Treat pain appropriately. Close follow up arranged previously with [facility] Urology. He would benefit from having repeat ultrasound of testicle to evaluated hypodense lesion when inflammation and infection resolved. Suggestions/Recommendations: ??? Pain control, NSAIDs ??? Complete antibiotic course, Levofloxacin ??? Scrotal support, elevate as directed ??? Ice ??? Bed rest ??? Follow up tomorrow with Urology at [facility] as scheduled for US and further evaluation. Patient discussed with Mickey Atkinson MD. LOPEZ LESTER MD 04/08/2020 23:27 Weekdays from 7AM-5PM page [phone] with questions. documented in this encounter ED Notes Marlon Schrader MD - 04/09/2020 0022 EDT I, Carin Welsh, am scribing for Marlon Schrader* while he/she is personally performingthe service. Carin Welsh 04/09/2020 0:23 Brian Ko is a 44 y.o. male who presents to the ED with two days of left groin pain. He was initially seen at [facility] and started on a course of antibiotics for epididymitis. However, his pain has not improved, prompting his presentation here. Care and work-up prior to sign out includes labs that were significant for elevated C-reactive protein at 40.4 and elevated WBC at 11.07. I assumed care of patient from Mihir Bey MD with Urology pending. After I assumed care the patient had: 0015: Urology at bedside. They do not believe an abscess has formed at this time. Plan to follow up with the patient as an outpatient. He has only taken one dose of his levaquin 0021: On reevaluation, I advised the patient to continue his antibiotic course as directed and to take ibuprofen every 6 hours. At this time, the patient was stable for discharge with instructions to to continue taking Levaquin as directed. Prior to discharge usual and customary precautions were reviewed with the patient and/orfamily including follow-up instructions and reasons to return to the Emergency Department if condition worsens, does not improve as expected, or other new concerns arise. Final diagnoses: Orchitis and epididymitis This documentation is recorded by Carin Welsh acting as Scribe under the direction and presenceof Marlon Schrader*. Marlon Schrader*: I personally performed the services recorded by the scribe in my presence. I confirm the scribe's documentation has been reviewed by me to accurately and completely record mywork, treatment, procedures, and medical decision making. Marty Duval RN - 04/08/2020 7042 EDT Blood drawn via saline lock per protocol, rainbow tube(s) sent to lab per order. Mihir Bishop MD - 04/08/2020 6234 EDT This patient received an evaluation and medical screening exam for emergent medical conditions at the [facility] on 04/08/2020 Scribe Attestation: This documentation is recorded by Faby Larios acting as Scribe under the direction and presence of Mihir Bey MD. Mihir Bey MD: I personally performed the services recorded by the scribe in my presence. I confirm the scribe's documentation has been reviewed by me to accurately and completely record my work, treatment, procedures, and medical decision making. Chief Complaint Chief Complaint Patient presents with ??? Groin Pain Pt states he was seen at outside hospital diagnosed with abcess on testicle and told you need surgery. Pt reports pain started two days ago, ultrasound showed epiditimitis. Pt states pain has increased. HPI Brian Ko is a 44 y.o. male with no significant past medical history who presents to the ED for groin pain. The patient reports two days of severe left testicular pain, swelling and redness. He was seen at [facility] and was found to have an abscess on his left testicle. He had an u ltrasound which was consistnt with epiditimitis. The patient states that the pain has continued to worsen since he was discharged. He otherwise denies any penile discharge, fevers or flu-like symptoms.The patient denies history of diabetes or any new sexual partners. History was provided by: Patient and medical records. Patient's pertinent PMH, FH, and SH were reviewed and updated PRN. ROS Review of Systems Constitutional: Negative for fever. Genitourinary: Positive for scrotal swelling and testicular pain. Negative for discharge. All other systems reviewed and are negative. The patient???s past medical, family, and social history was reviewed and updated as needed. Allergies Allergen Reactions ??? Keflex [Cephalexin] Nausea And Vomiting Physical Exam Vital Signs Temp: 36.7 ??C (98.1 ??F) Temp src: Temporal Pulse: (!) 120 Resp: 18 SpO2: 95 % BP: (!) 199/111 BP Device: BP Machine BP Patient Position: Sitting BP Cuff Location: Left arm Physical Exam Constitutional: He is oriented to person, place, and time. He appears well- developed and well-nourished. No distress. HENT: Head: Normocephalic and atraumatic. Eyes: Right eye exhibits no discharge. Left eye exhibits no discharge. No scleral icterus. Pulmonary/Chest: Effort normal. No respiratory distress. No subcutaneous emphysema Abdominal: Soft. He exhibits no distension. Genitourinary: Genitourinary Comments: Erythematous, large, swollen left hemiscrotum Musculoskeletal: Normal range of motion. Neurological: He is alert and oriented to person, place, and time. Skin: Skin is warm and dry. No rash noted. He is not diaphoretic. Psychiatric: He has a normal mood and affect. His behavior is normal. Nursing note and vitals reviewed. Laboratory Results Labs Reviewed COMPLETE BLOOD COUNT AND DIFFERENTIAL - Abnormal Result Value Status WBC 11.07 (*) Final RBC 4.72 Final Hemoglobin 13.3 (*) Final HCT 40.7 Final MCV 86 Final MCH 28.2 Final MCHC 32.7 (*) Final RDW-CV 14.1 Final RDW-SD 44.5 Final PLT 285 Final MPV 10.1 Final Neutrophils 60.0 Final Lymphocytes 28.3 Final Monocytes 7.4 Final Eosinophils 3.0 Final Basophils 0.7 Final Immature Grans 0.6 Final Absolute Neutrophils 6.64 Final Absolute Lymphocytes 3.13 Final Absolute Monocytes 0.82 (*) Final Absolute Eosinophils 0.33 Final Absolute Basophils 0.08 Final Absolute Immature Grans 0.07 (*) Final Type of Differential: Auto Final COMPREHENSIVE METABOLIC PANEL (CMP) - Abnormal Sodium 140 Final Potassium 4.1 Final Chloride 105 Final CO2 Total 28 Final Glucose 107 (*) Final BUN 14 Final Creatinine 0.85 Final eGFR 107 Final Total Protein 6.4 Final Albumin 3.5 Final Alkaline Phosphatase 91 Final AST 23 Final ALT 32 Final Bilirubin, Total <0.5 Final Calcium 9.0 Final Calculated Calcium 9.4 Final C REACTIVE PROTEIN - Abnormal C-Reactive Protein 40.4 (*) Final Procedures Procedures MDM MDM Number of Diagnoses or Management Options Orchitis and epididymitis: Diagnosis management comments: 44-year-old male with several days of worsening left testicular pain.He was diagnosed with epididymal orchitis had an ultrasound with possible scrotal abscess. He returned to [facility] with worsening severe pain. He was dissatisfied with the care he received there and son sequently came here. His images were pushed from the outside hospital on exam he has a hot tender left hemiscrotum. Patient will be evaluated by urology he was signed out to Dr. Schrader pending urology evaluation and formal recommendations. ED Course A medical screening was performed. The patient is a 44 y.o. male with no significant past medical history who presents to the ED for two days of severe, worsening left testicular pain, swelling and redness. Patient had labs that were reviewed independently by myself, significant for elevated C-reactive protein at 40.4 and elevated WBC at 11.07. ([id number]) Case discussed with Urology who agreed to evaluate the patient in the ED. The patient was signed out to Dr. Schrader with Urology evaluation pending at change of shift. Clinical Impression Final diagnoses: Orchitis and epididymitis Disposition Discharged The patient's pain was managed to an adequate level weighing risk vs. Benefit of further medications. At the end of my care of this patient, the patient's pain was 0 on a zero to ten scale. Any further pain treatment will be at the discretion of the provider following up with the patient based on their clinical assessment. The patient's condition at the end of my care: Improved documented in this encounter Plan of Treatment Upcoming Encounters Date Type Specialty Care Team Description 05/08/2022 Telemedicine Sleep Medicine El Sinclair Jr., MD 1 [facility], [address] [place], [place] [phone] (Wo rk) documented as of this encounter Procedures Procedure Name Priority Date/Time Associated Comments Diagnosis COMPLETE BLOOD COUNT STAT 04/08/2020 23:07 Res ults for this AND DIFFERENTIAL EDT procedure a re in the results section. C REACTIVE PROTEIN STAT 04/08/2020 23:07 Resul ts for this EDT procedure are i n the results section. COMPREHENSIVE STAT 04/08/2020 23:07 Results fo r this METABOLIC PANEL (CMP) EDT proced ure are in the results section. documented in this encounter Results (ABNORMAL) C REACTIVE PROTEIN (04/08/2020 23:07 EDT) Pathologist Sig nature C-Reactive Protein 40.4 (H) <10.0 mg/L [facility] Specimen Blood - Venous blood (substance) Performing Organization Address City/[facility] Phon e Number [facility] [address] [place] [address] SERVICES (ABNORMAL) COMPREHENSIVE METABOLIC PANEL (CMP) (04/08/2020 23:07 EDT) Sodium 140 136 - 145 [facility] mEq/L [facility] Potassium 4.1 3.5 - 5.0 [facility] mEq/L [facility] Chloride 105 96 - 110 [facility] mEq/L [facility] CO2 Total 28 22 - 32 mEq/L [facility] Glucose 107 (H) 70 - 100 [facility] mg/dL [facility] BUN 14 10 - 26 mg/dL [facility] Creatinine 0.85 0.66 - 1.25 [facility] mg/dL [facility] eGFR 107Comment: eGFR >60 [facility] calculated using mL/min/1.73m2 [facility] CKD-EPI equation SERVICES for non- Americans. Multiply eGFR by 1.16 for patients. Total Protein 6.4 6.3 - 8.2 [facility] g/dL [facility] Albumin 3.5 3.4 - 4.9 [facility] g/dL [facility] Alkaline 91 38 - 126 U/L [facility] Phosphatase [facility] AST 23 15 - 46 U/L [facility] ALT 32 <50 U/L [facility] Bilirubin, Total <0.5 <1.4 mg/dL [facility] Calcium 9.0 8.5 - 10.5 [facility] mg/dL [facility] Calculated Calcium 9.4 8.5 - 10.5 [facility] mg/dL [facility] Specimen Blood - Venous blood (substance) Performing Organization Address City/[facility]/ZIP Code Phon e Number [facility] [address] [place] [address] SERVICES (ABNORMAL) COMPLETE BLOOD COUNT AND DIFFERENTIAL (04/08/2020 23:07 EDT) WBC 11.07 (H) 4.00 - 10.40 [facility] K/[facility] LABORATORY SERVICES RBC 4.72 4.36 - 5.78 [facility] LABORATORY SERVICES Hemoglobin 13.3 (L) 13.8 - 17.3 [facility] gm/dL LABORATORY SERVICES HCT 40.7 39.5 - 50.2 % [facility] MCV 86 81 - 95 fl [facility] MCH 28.2 27.6 - 33.0 pg [facility] MCHC 32.7 (L) 32.8 - 36.4 [facility] gm/dL LABORATORY SERVICES RDW-CV 14.1 <14.2 % [facility] RDW-SD 44.5 <46.0 fl [facility] PLT 285 141 - 377 K/[facility] LABORATORY SERVICES MPV 10.1 9.5 - 12.7 fl [facility] Neutrophils 60.0 % [facility] Lymphocytes 28.3 % [facility] Monocytes 7.4 % [facility] Eosinophils 3.0 % [facility] Basophils 0.7 % [facility] Immature Grans 0.6 % [facility] Absolute Neutrophils 6.64 2.20 - 8.85 [facility]ORATORY SERVICES Absolute Lymphocytes 3.13 1.09 - 3.30 [facility] SERVICES Absolute Monocytes 0.82 (H) 0.10 - 0.80 [facility] Absolute Eosinophils 0.33 0.03 - 0.61 [facility] SERVICES Absolute Basophils 0.08 0.01 - 0.11 [facility] Absolute Immature 0.07 (H) 0.00 - 0.06 [facility]ORATORY SERVICES Type of Differential: Auto [facility] Specimen Blood - Venous blood (substance) Performing Organization Address City/State/ZIP Code Phon e Number [facility] [address] [place] [address] SERVICES documented in this encounter Visit Diagnoses Diagnosis Orchitis and epididymitis - Primary Orchitis and epididymitis, unspecified documented in this encounter Administered Medications Inactive Administered Medications - up to 3 most recent administrations Medication Order MAR Action Action Date Dose Rate Site ibuprofen (MOTRIN) tablet 400 mg Given 04/09/2020 0:28 EDT 400 mg 400 mg, oral, NOW X1, 1 dose, On Sun04/09/20 at 0030, STAT ketOROLAC (TORADOL) injection 15 mg Given 04/08/2020 23:57 EDT 15 mg 15 mg, intravenous, NOW X1, 1 dose, On Stella 04/08/20 at 2330, STAT lactated ringers BOLUS 1,000 mL New Bag 04/08/2020 23:05 EDT 1,000 mL 1,000 mL, intravenous, NOW X1, 1 dose, On Stella 04/08/20 at 2300, STAT documented in this encounter Historical Medications This list may reflect changes made after this encounter. Medication Sig Dispensed Refills Start Date End Date gabapentin (NEURONTIN) 300 Take 600 mg by 0 mg capsule mouth daily. Has been taking 600 mg BID levOFLOXacin (LEVAQUIN) Take 750 mg by 0 02/26/2021 750 mg tablet mouth daily. added in this encounter Active and Recently Administered Medications Times are shown in EDT. 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
--- OUTSIDE RECORDS SUMMARY | 2022-03-21 09:35 | XMS_ITS | Encounter Summary ---
:1975 Author Organization [facility] Address [address] [place] [address] Care Team Providers Name Role Phone Jessica Morgan DO, Ernesto Primary Care Provider Reason for Visit Reason Onset Date Comments Pre-visit Orders 11/26/2020 Sleep study schedule d on 12/11/20. Pre-procedure Covid order Encounter Details Date Type Department Care Team Description 11/26/2020 Telephone [facility] Ami Rubio RN Pre-visit Orders Sleep Program - S [address] [facility] ([place] [address] on 12/11/20. 1 [facility] Pre-procedu re Covid Street order) Bean [address] [place] [id number] Social History Tobacco Use Types Packs/Day Years [...] been in contact with No / Unsure 10/29/2020 9:25 EST someone who was confirmed or suspected to [...] this encounter Miscellaneous Notes Telephone Encounter - Nhi Rubio RN - 12/09/2020 0912 EDT Covid report to [facility], negative. Mychart to pt. elephone Encounter - Nhi Rubio RN - 12/09/[address] [facility], spoke with Belkis. She stated he had Covid test done on 12/07 and it is negative and she will fax report to Sleep Program. elephone Encounter - Melody Robles APRN - 11/26/2020 0815 EDT COVID order signed elephone Encounter - Nhi Rubio RN - 11/26/2020 0813 EDT Sleep study scheduled for 12.11.20. Pre-procedure CoVid (asymptomatic) order pended to Melody Robles NP. documented in this encounter Plan of Treatment Upcoming Encounters Date Type Specialty Care Team Description 05/08/2022 Telemedicine Sleep Medicine El Sinclair Jr., MD 1 [facility], Level 2 [place], [place] [phone] (Wo rk) documented as of this encounter Visit Diagnoses Diagnosis Encounter for preoperative screening lab oratory testing for COVID-19 virus - Primary documented in this encounter Care Teams Printing Press Machine Operator Relationship Specialty Start Date End Date Jj Lopez Jr., DO PCP - General 10/22/[address] [place] [phone] documented as of this encounter
--- OUTSIDE RECORDS SUMMARY | 2022-03-21 09:35 | XMS_ITS | Encounter Summary ---
:1975 Author Organization [facility] Address [address] [place] [address] Care Team Providers Name Role Phone Jessiac Morgan DO, Ernesto Primary Care Provider Reason for Referral Sleep Study (Urgent) - Closed Specialty Diagnoses / Procedures Referred By Contact Refer red To Contact Diagnoses ADELAIDE (obstructive sleep apnea) El Sánchez Procedures FEDERAL APPELLATE CLERK EVALUATION (PAP MANAGEMENT) MD Cathy 1 [facility], Level [address] [place] [phone] Referral ID Status Reason Start Date Expiration Date Visits Requ ested Visits Authorized [id number] Closed 02/14/2021 1 1 Reason for Visit Reason Onset Date Comments DME 02/11/2021 Encounter Details Date Type Department Care Team Description 02/11/2021 Telephone [facility] Sleep Nhi Rubio RN [facility] Program - S [address] [address] [place] [phone] Social History Tobacco Use Types Packs/Day Years [...] of a physical, mental, or emotional condition, Yes 02/01/2021 does this person have serious difficulty concentrating, remembering, or making decisions? documented as of this encounter Miscellaneous Notes Telephone Encounter - Travon Cruz RN - 02/15/2021 1022 EDT Relayed below message to patient. He will let us know if still having issue after this latest adjustment. ddendum Note - El Sánchez Jr., MD - 02/14/2021 1749 EDT Addended by: EL SÁNCHEZ JR. on: 02/14/2021 17:49 Modules accepted: Orders Telephone Encounter - El Sánchez Jr., MD - 02/14/2021 1743 EDT Based on patient report I remotely decreased IPAP max to 13 cm and pressure support to 8 cm. Have also ordered mask check/fit in [facility]. elephone Encounter - Nhi Rubio RN - 02/14/2021 1248 EDT Spoke with pt. He report same issues. He exhales and the exhaled air is trapped and he is rebreathing it. He states he took a cigarette filter and put it between his mask and his chin to help with thisthough he says his machine now showing high leak. Pt also reporting that he feels that too much air is being forced into his lungs, causing chest discomfort in the morning. He is not able to use whole night, has to take it of because of this. He is having more than 5 events per hour. Let him know I will send update to as he will want to adjust his settings and we will get back to him.. elephone Encounter - Katrina Friedman - 02/14/2021 1151 EDT called to report issues with device. He would like Dr. Sánchez to lower volume into his chest as it is hurting his lung. Noted that he had an unread MyChart message from nurse. Asked him whether or not he had more than 5 events. He does. Routed to sleep nurse to call him back to advise. elephone Encounter - El Sánchez Jr., MD - 02/11/2021 1357 EDT Per patient report I remotely increased the IPAP max to 14 cm and the PS to 9 cm. The EPAP min remains 4 cm. elephone Encounter - Nhi Rubio RN - 02/11/2021 1043 EDT Jeovanny from [facility] called - pt had called them requesting a mask with 'bigger holes near the mouth, so he can get more air, and so can exhale easier.' Jeovanny said pt told him his oxygen levels low at night-not sure how he is monitoring. [facility] does not have such a mask. This sounds like a pressure issue. He is on the new BiPAP settings. Spoke with pt. He states he is a shallow breather, feels like he is breathing in recycled air sitting in him mask. If is stuffy then feels like can't breath. Pt has a FFM. Pt insists the mask holes need to be bigger. Let him know the air moves thru the machine, not recycled. Pt said he has another phone call and will call the Sleep Program back another time. Message routed to . documented in this encounter Plan of Treatment Upcoming Encounters Date Type Specialty Care Team Description 05/08/2022 Telemedicine Sleep Medicine El Sánchez Jr., MD 1 [facility], Level [address] [place], [place] [phone] (Wo rk) Scheduled Orders Name Type Priority Associated Diagnoses Order [facility] FEDERAL APPELLATE CLERK Sleep Center STAT ADELAIDE (obstructive Order ed: 02/14/2021 EVALUATION (PAP sleep apnea) MANAGEMENT) documented as of this encounter Visit Diagnoses Diagnosis ADELAIDE (obstructive sleep apnea) - Primary Obstructive sleep apnea (adult) (pediatr ic) documented in this encounter Orders Equipment Count Last Ordered Date First Ordered Date CPAP/BIPAP GENERAL ORDER 1 02/11/2021 documented in this encounter Care Teams Investigations Director Relationship Specialty Start Date End Date Jj Lopez Jr., DO PCP - General 10/22/[address] [place] [id number] documented as of this encounter
--- OUTSIDE RECORDS SUMMARY | 2022-03-21 09:35 | XMS_ITS | Encounter Summary ---
:1975 Author Organization [facility] Address [address] [place] [address] Care Team Providers Name Role Phone Jessica Morgan DO, Ernesto Primary Care Provider Encounter Details Date Type Department Care Team Description 01/17/2021 Telephone [facility] El Sinclair [facility] Anand Morgan MD [address], [address] [place] [address] [place] [phone] (Wo rk) Social History Tobacco Use Types [...] been in contact with No / Unsure 02/25/2021 19:06 EDT someone who was confirmed or suspected [...] this encounter Miscellaneous Notes Telephone Encounter - Cristina Denny - 01/17/2021 0935 EDT Pt called regarding appt he thought was today. Rescheduled for: 01.24.21 @ 10:30 am NO PAP TEST RESULTS Meeting ID: [id number] Password: [id number] documented in this encounter Plan of Treatment Upcoming Encounters Date Type Specialty Care Team Description 05/08/2022 Telemedicine Sleep Medicine El Sinclair Jr., MD [address] [place] [address], [facility] 2 [place] [phone] (Wo rk) documented as of this encounter Visit Diagnoses Not on filedocumented in this encounter Care Teams Chief Ophthalmic Technician Relationship Specialty Start Date End Date Jj Lopez Jr., DO PCP - General 10/22/[address] [place] [phone] documented as of this encounter
--- OUTSIDE RECORDS SUMMARY | 2022-03-21 09:35 | XMS_ITS | Encounter Summary ---
:[address] [facility] Address [address] [place] [address] Care Team Providers Name Role Phone Jessica Morgan DO, Ernesto Primary Care Provider Reason for Visit Reason Comments Follow-up Telemedicine Video Visit Encounter Details Date Type Department Care Team Description 01/24/2021 Telemedicine [facility] El Sinclair ADELAIDE (ob structive Sleep Program - S Beck Morgan MD sleep apnea) (Primary [place] 1 [facility] Dx) 1 [facility], Level 2 [place] [address] [place] [phone] (Wo rk) Social History Tobacco Use Types [...] making decisions? documented as of this encounter Progress Notes lE Sinclair Jr., MD - 01/24/2021 1030 EDT TELEMEDICINE VIDEO VISIT Today's visit was provided through telemedicine video conferencing: The location of the patient : Home The location of the provider: Home The following staff and their role did participate in today's encounter visit: El Sinclair Jr., MD The concept of ???Telemedicine?? has been described to the patient.? Patient has been informed of the anticipated benefits and possible risks.? Patient understands the information provided regarding telemedicine, has had the opportunity to ask questions about this information, and all questions have been answered to patient???s satisfaction. Patient consents for the use of telemedicine in his/her medical care and authorizes the transmission of any relevant medical information to providers and theirstaff involved in patient???s medical or mental health care. Patient underwent attempted positive airway pressure titration on 12/11/2020. He was unable to tolerate CPAP and reportedly also unable to tolerate bilevel Pap at pressure settings of 8/4, 10/6, and 12/8cmH2O. Clinical Associate notes reflected that patient stated he was feeling as he just about falls asleep that he starts to lose air and wakes up. On 04/12/2018 patient had undergone home sleep apnea testing at a weight of 376 pounds. This test had yielded moderate obstructive sleep apnea with an CAMILLA of 21.4 and low oxygen saturation 87%. CPAP have been prescribed but not tolerated by patient. Diagnostic polysomnography was performed on 10/25/2018 at a weight of 400 pounds at which time patient was diagnosed with severe obstructive sleep apnea. His AHI was 51.8 and low oxygen saturation 88%. REM sleep was only observed lateral. AASM hypoventilation criteria were not met. Patient's last recorded weight has further increased to 440 pounds. He reports that he had little difficulty at the beginning of the aforementioned December 2020 study butthat as he was falling asleep he felt as though he was being suffocated by PAP therapy. He reports that along with this he would experience increased heart rate and stress. He eventually became frustrated and discontinued the study. We discussed treatment options which are very limited. Patient has only 9 teeth all on the right side of his mouth (4 down and 4-5 up by his report). He is morbidly obese with a BMI of 53.6 kg/m??. Therefore patient is not a good candidate for mandibular advancement device or upper airway stimulation. Patient states that he had explored bariatric surgery. I informed him that weight loss would likely improve and possibly resolve his sleep disordered breathing. 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 He did not want to wait until he loses weight. He stated that he was willing to pursue surgical options up to and including tracheostomy. I informed him of the risks of tracheostomy as well as the required maintenance. I also discussed with patientpotential limitations of other surgeries and that aside from tracheostomy surgical intervention doesnot guarantee control of obstructive sleep disordered breathing. I strongly encouraged patient to undergo trial of bilevel positive airway pressure in the home setting. I again educated him on the mechanism of action of bilevel PAP. I also informed him that at a high enough IPAP he should not experience obstruction of his airway during sleep. Additionally, the EPAPcould be adjusted to help promote comfort/compliance. Patient was amenable to the aforementioned, therefore auto bilevel positive airway pressure therapy has been ordered with an EPAP min of 4 cm, pressure support 8 cm, and IPAP max 16 cm. Patient has been instructed to notify the sleep program if he is having any difficulty tolerating this therapy and if so to provide specifics. Remote adjustments can then be provided until patient is able to adjust totherapy. If patient fails positive airway pressure therapy despite aforementioned will consider referral for surgical consultation to otolaryngology. Assessment: Severe obstructive sleep apnea with previous difficulty adjusting to positive airway pressure therapy but with limited options given morbid obesity and poor dentition. Plan: 1. Auto bilevel positive airway pressure ordered at following settings: EPAP min 4 cm, pressure support 8 cm, and IPAP max 16 cm. 2. Patient to contact sleep program and describe specifics of any difficulty adjusting to therapy. 3. Patient is aware of benefit of weight loss as it pertains to helping to mitigate sleep disorderedbreathing. 4. Patient advised to avoid operating a motor vehicle if feeling sleepy and to take appropriate countermeasures should sleepiness develop while driving. 5. Will schedule follow-up in 6 weeks to assess patient progress. If patient is unable to adjust to positive airway pressure therapy will consider referral for surgical consultation. I spent a total of 35 minutes on the date of this encounter meeting with the patient and reviewing documentation/coordinating care as described in the above note. El Sinclair Jr., MD 01/24/2021 15:25 Portions of this document may contain text elements generated through computerized voice recognitiontechnology. Undetected computer-generated word errors are possible. Please notify the signing provider if clarification or correction is needed. documented in this encounter Plan of Treatment Upcoming Encounters Date Type Specialty Care Team Description 05/08/2022 Telemedicine Sleep Medicine El Sinclair Jr., MD [address] [place] [address], [address] [place], [place] [phone] (Wo rk) documented as of this encounter Visit Diagnoses Diagnosis ADELAIDE (obstructive sleep apnea) - Primary Obstructive sleep apnea (adult) (pediatr ic) documented in this encounter Orders Equipment Count Last Ordered Date First Ordered Date CPAP/BIPAP MACHINE ORDER 1 01/25/2021 documented in this encounter Care Teams Spectral Scientist Relationship Specialty Start Date End Date Jj Lopez Jr., PCP - General 10/22/[address] [place] [phone] documented as of this encounter
--- OUTSIDE RECORDS SUMMARY | 2022-03-21 09:35 | XMS_ITS | Encounter Summary ---
:[address] [facility] Address [address] [place] [address] Care Team Providers Name Role Phone Jessica Morgan DO, Ernesto Primary Care Provider Reason for Visit Reason Comments Follow-up Telemedicine Video Visit Encounter Details Date Type Department Care Team Description 03/08/2021 Telemedicine [facility] El Sinclair ADELAIDE (ob structive Sleep Program - S Beck Morgan MD sleep apnea) (Primary [place] 1 [facility] Dx) 1 [facility], Level 2 [place] [address] [place] [phone] (Wo rk) Social History Tobacco Use Types [...] documented as of this encounter Progress Notes El Sinclair Jr., MD - 03/08/2021 1130 EDT TELEMEDICINE VIDEO VISIT Today's visit was [...] in patient???s medical or mental health care. I reviewed with patient both verbally and visually utilizing video sharing data from his flow generator covering the date range of February 02 through March 03, 2021. This revealed 93% use and 70% compliancewith average use on nights utilized 4 hours 42 minutes. Auto bilevel Pap settings are as follows: EPAP min 4 cm, pressure support 8 cm, and IPAP max 13 cm. The flow generator tends to run at the upper setting the majority of the time with an AHI of 14.5 of which the majority of events are auto scored by the flow generator as obstructive apneas. Median leak 6.2 L/min and maximum leak 23.9 L/min. Patient has made progress adjusting to positive airway pressure therapy. His [place] Sleepiness Scale score today was 7.0. I discussed with patient in detail options moving forward. I recommended increasing the flow generator maximum setting. Patient was open to this increase although reluctant to increase more than 1 cm water. Therefore I remotely increased flow generator IPAP max from 13 cm up to 14 cm. Other settings were left unchanged. I discussed with patient goal of decreasing auto bilevel Pap scored AHI to less than 5. He is open to intermittent adjustments being made as he has noted progress and benefit from therapy. Patient was recently seen in the ER with increased intraocular pressure left eye. He states that he has improved, will follow up with ophthalmology, and does not anticipate any difficulty with continued use of positive airway pressure therapy. Assessment: Obstructive sleep apnea for which patient is treated with auto bilevel Pap with an IPAP max of 13 cm, EPAP min 4 cm, and pressure support 8 cm. Mild residual AHI of 14.5 on flow generator download. Plan: 1. I recommended patient continue to increase nightly use of positive airway pressure therapy with goal of attempting to utilize treatment at all times when sleeping. 2. Based on discussion with patient I remotely increased IPAP max from 13 cm up to 14 cm. Patient will call if he has difficulty with pressure setting. Further upward adjustments may be made as needed. 3. Patient advised not to operate a motor vehicle when feeling sleepy and to take appropriate countermeasures should sleepiness develop while driving. 4. Follow-up in 4 months or earlier as needed. I spent a total of 25 minutes on the date of this encounter meeting with the patient and reviewing documentation/coordinating care as described in the above note. El Sinclair Jr., MD 03/08/2021 13:10 Portions of this document may contain text elements generated through computerized voice recognitiontechnology. Undetected computer-generated word errors are possible. Please notify the signing provider if clarification or correction is needed. documented in this encounter Plan of Treatment Upcoming Encounters Date Type Specialty Care Team Description 05/08/2022 Telemedicine Sleep Medicine El Sinclair Jr., MD [address] [place] [address], [address] [place], [place] [phone] (Wo rk) documented as of this encounter Visit Diagnoses Diagnosis ADELAIDE (obstructive sleep apnea) - Primary Obstructive sleep apnea (adult) (pediatr ic) documented in this encounter Orders Equipment Count Last Ordered Date First Ordered Date CPAP/BIPAP GENERAL ORDER 1 03/08/2021 documented in this encounter Care Teams Inspector Packager Relationship Specialty Start Date End Date Jj Lopez Jr., DO PCP - General 10/22/[address] [place] [id number] documented as of this encounter
--- OUTSIDE RECORDS SUMMARY | 2022-03-21 09:35 | XMS_ITS | Encounter Summary ---
:1975 Author Organization [facility] Address [address] [place] [address] Care Team Providers Name Role Phone Jessica Morgan DO, Ernesto Primary Care Provider Encounter Details Date Type Department Care Team Description 02/25/2021 Travel Social History Tobacco Use Types Packs/Day Years [...] making decisions? documented as of this encounter Plan of Treatment Upcoming Encounters Date Type Specialty Care Team Description 05/08/2022 Telemedicine Sleep Medicine El Sinclair Jr., MD [address] [place] [address] 2 [place], [place] [phone] (Wo rk) documented as of this encounter Visit Diagnoses Not on filedocumented in this encounter Care Teams Mattress And Foundation Sewer Relationship Specialty Start Date End Date Jj Lopez Jr., DO PCP - General 10/22/20 [address] [place] [address] documented as of this encounter
--- OUTSIDE RECORDS SUMMARY | 2022-03-21 09:35 | XMS_ITS | Encounter Summary ---
:[address] [facility] Address [address] [place] [address] Care Team Providers Name Role Phone Jessica Morgan DO, Ernesto Primary Care Provider Reason for Visit Reason Comments Follow-up Telemedicine Video Visit Encounter Details Date Type Department Care Team Description 06/27/2021 Telemedicine [facility] El Sinclair ADELAIDE (ob structive Sleep Program - S Beck Morgan MD sleep apnea) (Primary [place] 1 [facility] Dx) 1 [facility], Level 2 [place] [address] [place] [address] [phone] (Wo rk) Social History Tobacco Use Types [...] Progress Notes El Sinclair Jr., MD - 06/27/2021 1100 EDT TELEMEDICINE VIDEO VISIT Today's visit was provided through telemedicine video conferencing: I have reviewed the appropriateness of using video technology with the patient with regards to today's visit. The location of the patient : Home Patient location state: Visit Location State: [place] The location of the provider: Home Provider location state: Visit Location State: [place] The following people and their roles were present for today's visit: Appointment Provider: El Sinclair Jr., MD Edward McDaniel Turpin Jr., MDThe concept of ???Telemedicine?? has been described to the patient.? Patient has been informed of the anticipated benefits and possible risks.? Patient understands the information provided regarding telemedicine, has had the opportunity to ask questions about this information, and all questions have been answered to patient???s satisfaction. Patient consents for the useof telemedicine in his/her medical care and authorizes the transmission of any relevant medical information to providers and their staff involved in patient???s medical or mental health care. Patient seen in video visit this morning. I reviewed with patient data from his flow generator covering the last 20 days. The date range was June 08 through June 27, 2021. During the 10 days previous to this timeframe patient states he did not have access to his device. Usage 75% and compliance 70%. Average use on days utilized 5 hours 10 minutes. Auto bilevel PAP pressure settings as follows: IPAP max 16 cm, EPAP min 6 cm, and pressure support 8 cm. Median leak 10.5 L/min, 95th percentile leak 28.2 L/min, and maximum leak 43.8 L/min. AHI 37.8. Of this the obstructive AI was 28.2. I informed patient that his flow generator was reaching maximum settings. Patient was again interested in treatment options and we discussed the possibility of referral to otolaryngology. I discussed possible surgeries ranging from likely lower success uvulopalatopharyngoplasty to higher success tracheostomy as well as intermediate success rate associated with maxillofacial surgery. Patient denied current complications with therapy. His [place] Sleepiness Scale score today was the same as last visit at 7.0. He denied experiencing sleepiness while driving. Patient did not wish to proceed with surgery at this time. He stated he was losing weight. He understands the benefit in terms of reducing severity of sleep apnea. Patient was interested in increasing pressure setting on flow generator. I had suggested increasing IPAP max from 16 cm to 18 cm, however patient expressed preference to further increase to 20 cm. He is aware that he should contact the sleep program if he has any difficulty tolerating this change. I also recommended increasing pressure support from 8 cm up to 10 cm. He was amenable and these changes were made during visit. Assessment: Obstructive sleep apnea for which patient is treated with auto bilevel Pap with an IPAP max of 16 cm, EPAP min 6 cm, and pressure support 8 cm. These pressures are insufficient as they are associated with an elevated AHI on flow generator download. T most events are auto scored by flow generator as obstructive apnea. Patient has however been adjusting to this therapy. Plan: 1. I remotely increased patient's IPAP max to 20 cm and pressure support to 10 cm. EPAP min remains at 6 cm. Patient is to contact the sleep program if he has any difficulty tolerating these pressure adjustments. 2. Avoid operating a motor vehicle if/when feeling sleepy and take appropriate countermeasures should sleepiness develop while driving. 3. If less than optimal control of sleep disordered breathing achieved may further increase pressureprior to next visit if patient amenable. 4. Follow-up in 4 months or earlier as needed. I spent a total of 22 minutes on the date of this encounter meeting with the patient and reviewing documentation/coordinating care as described in the above note. El Sinclair Jr., MD 06/27/2021 12:57 Portions of this document may contain text elements generated through computerized voice recognitiontechnology. Undetected computer-generated word errors are possible. Please notify the signing provider if clarification or correction is needed. documented in this encounter Plan of Treatment Upcoming Encounters Date Type Specialty Care Team Description 05/08/2022 Telemedicine Sleep Medicine El Sinclair Jr., MD 1 [facility], Level [address] [place], [place] [phone] (Wo rk) documented as of this encounter Visit Diagnoses Diagnosis ADELAIDE (obstructive sleep apnea) - Primary Obstructive sleep apnea (adult) (pediatr ic) documented in this encounter Historical Medications This list may reflect changes made after this encounter. Medication Sig Dispensed Refills Start Date End Date cyclobenzaprine (FLEXERIL) 10 Take 10 mg by 0 mg tablet mouth at bedtime. meloxicam (MOBIC) 7.5 mg Take 7.5 mg by 0 tablet mouth 2 times daily. added in this encounter Orders Equipment Count Last Ordered Date First Ordered Date CPAP/BIPAP GENERAL ORDER 1 06/27/2021 documented in this encounter Care Teams Etcher Apprentice Relationship Specialty Start Date End Date Jj Lopez Jr., DO PCP - General 10/22/[address] [place] [phone] documented as of this encounter
--- OUTSIDE RECORDS SUMMARY | 2022-03-21 09:35 | XMS_ITS | Encounter Summary ---
:1975 Author Organization [facility] Address [address] [place] [address] Care Team Providers Name Role Phone Unknown, Provider Primary Care Provider Jessica Morgan DO, Ernesto Primary Care Provider Reason for Visit Reason Onset Date Comments Appointment Related 07/02/2020 Encounter Details Date Type Department Care Team Description 07/02/2020 Telephone [facility] El Sinclair Appoint ment Related Sleep Program - S Beck Morgan MD [address], [address] [place] [address] [place], [place] [phone] (Wo rk) Social History Tobacco Use [...] this encounter Miscellaneous Notes Telephone Encounter - Alba Yoo - 07/02/2020 8798 EDT Called pt to schedule PAP TITRATION 1:1 - ENDO - 11.1.20 date needed Pt can not do 11.1.20. The only days he is available is SUNDAY OR Sunday. documented in this encounter Plan of Treatment Upcoming Encounters Date Type Specialty Care Team Description 05/08/2022 Telemedicine Sleep Medicine El Sinclair Jr., MD 1 [facility], Level [address] [place], [place] [phone] (Wo rk) documented as of this encounter Visit Diagnoses Not on filedocumented in this encounter Care Teams Feller Seam Operator Relationship Specialty Start Date End Date Unknown, Provider, PCP - General 03/05/20 10/21/20 Jj Lopez Jr., PCP - General 10/22/[address] [place] [phone] documented as of this encounter
--- OUTSIDE RECORDS SUMMARY | 2022-03-21 09:35 | XMS_ITS | Encounter Summary ---
:1975 Author Organization [facility] Address [address] [place] [address] Care Team Providers Name Role Phone Jessica Morgan DO, Ernesto Primary Care Provider Encounter Details Date Type Department Care Team Description 10/22/2020 Travel Social History Tobacco Use Types Packs/Day [...] been in contact with No / Unsure 10/22/2020 10:02 EST someone who was confirmed or suspected [...] Telemedicine Sleep Medicine El Sinclair Jr., MD [address] [place] [address] 2 [place], [place] [phone] (Wo rk) documented as of this encounter Visit Diagnoses Not on filedocumented in this encounter Care Teams Cycle Counter Relationship Specialty Start Date End Date Jj Lopez Jr., DO PCP - General 10/22/[address] [place] [phone] documented as of this encounter
--- OUTSIDE RECORDS SUMMARY | 2022-03-21 09:35 | XMS_ITS | Encounter Summary ---
:1975 Author Organization [facility] Address [address] [place] [address] Care Team Providers Name Role Phone Jessica Morgan DO, Ernesto Primary Care Provider Reason for Visit Reason Comments Follow-up Telemedicine Video Visit Encounter Details Date Type Department Care Team Description 10/11/2021 Telemedicine [facility] El Sinclair ADELAIDE (ob structive Sleep Program - S Beck Morgan MD sleep apnea) (Primary [place] 1 [facility] Dx) 1 [facility], Level 2 [place] [address] [place] [phone] (Wo rk) Social History Tobacco Use Types [...] Progress Notes El Sinclair Jr., MD - 10/11/2021 0921 EST TELEMEDICINE VIDEO VISIT Today's visit was provided through telemedicine video conferencing: The location of the patient : Home Location of physician: Home Office The following staff members participated in today's visit: El Sinclair MD The concept of ???Telemedicine?? has been described to the patient. The patient has been informed of the anticipated benefits and possible risks of the use of this medium. The patient understands theinformation provided regarding telemedicine, has had the opportunity to ask questions about this information, and all questions have been answered to patient???s satisfaction. The patient consents for the use of telemedicine in his/her medical care and authorizes the transmission of any relevant medical information to providers and their staff involved in patient???s medical or mental health care. Patient seen in video visit this morning. I reviewed with patient data from his flow generator covering the date range of September 03, 2021 through October 02, 2021. Usage 73% and compliance 67%. Average use on days utilized 6 hours 59 minutes. Pressure settings on device: EPAP min 6 cm, pressure support 10 cm, and IPAP max 20 cm. Median leak 7.9 L/min, 95th percent leak 37.6 L/min, and maximum leak 48.5 L/min. AHI 15.6 of which the obstructive AI was 10.8. 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 [place] Sleepiness Scale score today was 9.0. He denied risk of dozing as a cdl a driver. We again discussed safety when driving, ensuring adequate time for sleep, and importance of using CPAP at all times when sleeping. I discussed with patient the time during which CPAP was not used/use was decreased. He states he hada bad upper airway infection which he believes was secondary to COVID-19 as his father had contracted the virus. He reports his throat was very sore and PAP use extremely challenging but that he has recovered and will be able to use consistently when sleeping. I did remotely access most recent data from patient's flow generator which confirms he has reinitiated and is consistently using device with recent average use over 7 hours. Patient has adjusted to slow increase in positive airway pressure settings over time. This is allowed for compliance, however I recommended increasing positive airway pressure settings secondary to residual AHI on flow generator download. Patient was amenable and EPAP min will be increased to 8 cm, pressure support remain at 10 cm, and IPAP max increased to 22 cm. Patient also reported recent finding of nodules on thyroid for which biopsy is planned. I suggested follow-up in 6 months or earlier as needed. I will also track AHI remotely and contact patient for Pap adjustments as needed. Patient was amenable. Assessment: Patient with history of obstructive sleep apnea with evidence of borderline mild/moderate AHI on flow generator download. Currently on auto bilevel Pap. 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 Over time patient has become increasingly compliant with positive airway pressure with slow upward adjustments in settings. Recent difficulty with use reportedly secondary to extremely sore throat associated with suspected COVID-19. Nodules recently discovered on thyroid for which patient scheduled to undergo biopsy. Plan: 1. I remotely increased patient's auto bilevel Pap settings as follows: EPAP min increased from 6 cmup to 8 cm, IPAP max increased from 20 cm up to 22 cm. Pressure support left at 10 cm. 2. Patient advised to utilize positive airway pressure at all times when sleeping and to allow adequate time for sleep. 3. Advised not to operate a motor vehicle if/when feeling sleepy and to take appropriate countermeasures should sleepiness develop while driving. 4. Follow-up in 6 months or earlier as needed. Remote adjustments to positive airway pressure may berecommended/made prior to patient follow-up. I spent a total of 14 minutes on the date of this encounter meeting with the patient and reviewing documentation/coordinating care as described in the above note. El Sinclair Jr., MD 10/11/2021 10:02 Portions of this document may contain text elements generated through computerized voice recognitiontechnology. Undetected computer-generated word errors are possible. Please notify the signing provider if clarification or correction is needed. documented in this encounter Plan of Treatment Upcoming Encounters Date Type Specialty Care Team Description 05/08/2022 Telemedicine Sleep Medicine El Sinclair Jr., MD 1 [facility], Level [address] [place], [place] [phone] (Wo rk) documented as of this encounter Procedures Procedure Name Priority Date/Time Associated Diagnosis Comme nts ORDERS - SCANNED 10/17/2021 14:41 EST documented in this encounter Visit Diagnoses Diagnosis ADELAIDE (obstructive sleep apnea) - Primary Obstructive sleep apnea (adult) (pediatr ic) documented in this encounter Orders Admission Count Last Ordered Date First Ordered Date ORDERS - SCANNED 1 10/18/2021 Equipment Count Last Ordered Date First Ordered Date CPAP/BIPAP GENERAL ORDER 1 10/11/2021 documented in this encounter Care Teams Sheet Metal Worker Supervisor Relationship Specialty Start Date End Date Jj Lopez Jr., PCP - General 10/22/[address] [place] [address] documented as of this encounter
--- OUTSIDE RECORDS SUMMARY | 2022-03-21 09:35 | XMS_ITS | Encounter Summary ---
:1975 Author Organization [facility] Address [address] [place] [address] Care Team Providers Name Role Phone Jessica Morgan DO, Ernesto Primary Care Provider Reason for Visit Reason Onset Date Comments Other 04/25/2021 Encounter Details Date Type Department Care Team Description 04/25/2021 Telephone [facility] Nhi Webber RN Other Program - [facility] 111 [facility] 1 [place], [place] [phone] [place] [phone] Social History Tobacco Use Types Packs/Day Years [...] Miscellaneous Notes Telephone Encounter - El Sinclair Jr., MD - 05/03/2021 1308 EDT Based on previous review of patient's flow generator data I remotely increased EPAP min from 4 cm upto 6 cm and IPAP max from 14 cm up to 16 cm. Pressure support remains at 8 cm. elephone Encounter - Nhi Rubio RN - 05/02/2021 1022 EDT Spoke with pt. recommending slight pressure increase as having some apneas- does pt agree.Pt said he agrees and if doctor wants to make other changes, he agrees to that too. Encouraged him to call us if he has any trouble tolerating new settings. Pt verbalized understanding, no barrier to learning. elephone Encounter - Cristina Denny - 05/02/2021 1021 EDT Pt returning your call. Transferring elephone Encounter - Nhi Rubio RN - 05/02/2021 1013 EDT Left a message asking patient to call me at the Sleep Program. elephone Encounter - Nhi Rubio RN - 04/25/2021 1446 EDT Mychart to pt. documented in this encounter Plan of Treatment Upcoming Encounters Date Type Specialty Care Team Description 05/08/2022 Telemedicine Sleep Medicine El Sinclair Jr., MD 1 [facility], Level 2 [place] [phone] (Wo rk) documented as of this encounter Visit Diagnoses Diagnosis ADELAIDE (obstructive sleep apnea) - Primary Obstructive sleep apnea (adult) (pediatr ic) documented in this encounter Orders Equipment Count Last Ordered Date First Ordered Date CPAP/BIPAP GENERAL ORDER 1 05/03/2021 documented in this encounter Care Teams Senior Integration Developer Relationship Specialty Start Date End Date Jj Lopez Jr., DO PCP - General 10/22/[address] [place] [address] documented as of this encounter
--- OUTSIDE RECORDS SUMMARY | 2022-03-21 09:35 | XMS_ITS | Encounter Summary ---
:1975 Author Organization [facility] Address [address] [place] [address] Care Team Providers Name Role Phone Unknown, Provider MD Primary Care Provider Encounter Details Date Type Department Care Team Description 08/26/2020 Transcribe Orders [facility] Jj Lopez DO E (dyspnea on exertion) (Primary Dx); Cardiology - Amarilis Morgan, DO Palpitations [address] [place] [address] [phone] Social History Tobacco Use Types Packs/Day Years [...] documented as of this encounter Progress Notes Zakia Calderon RN - 08/26/2020 1250 EST Spoke with pt. He says he's able to lie flat for 20 minutes, therefore will ask Dr. Lopez to order 2day bariatric ST for improved imaging. documented in this encounter Plan of Treatment Upcoming Encounters Date Type Specialty Care Team Description 05/08/2022 Telemedicine Sleep Medicine El Sinclair Jr., MD [address] [place] [address] Level [address] [place], [place] [phone] (Wo rk) documented as of this encounter Visit Diagnoses Diagnosis ARELLANO (dyspnea on exertion) - Primary Other dyspnea and respiratory abnormalit y Palpitations documented in this encounter Care Teams Atm Servicer Relationship Specialty Start Date End Date Unknown, Provider, PCP - General 03/05/20 10/21/20 documented as of this encounter
--- OUTSIDE RECORDS SUMMARY | 2022-03-21 09:35 | XMS_ITS | Encounter Summary ---
:1975 Author Organization [facility] Address [address] [place] [address] Care Team Providers Name Role Phone Jessica Morgan DO, Ernesto Primary Care Provider Reason for Visit Reason Onset Date Comments Follow-up Starting CPAP/BiPAP 02/03/2021 Encounter Details Date Type Department Care Team Description 02/03/2021 Telephone [facility] El Sinclair Follow- up Starting Sleep Program - S Beck Morgan MD CPAP/BiPAP [place] 1 [facility] 1 [facility], Level 2 [place] 2 [place] [phone] (Wo rk) Social History Tobacco Use Types [...] Telephone Encounter - Nhi Rubio RN - 02/04/2021 1026 EDT Called pt and left message letting him know has remotely reduced his pressures settings due to his difficulties tolerate and reviewed his modem data. Pt encouraged to use and call us on Sunday if problems persist as may adjust further. Sent [employer] Blazehart w/ update as well. elephone Encounter - El Sinclair Jr., MD - 02/04/2021 1013 EDT I reviewed patient's flow generator data. Given that he reported pressure being uncomfortably high Iremotely decreased the IPAP max from 16 cm down to 12 cm. I also decreased the pressure support from8 cm down to 7 cm. elephone Encounter - Bibi Dixon - 02/03/2021 0838 EDT PT called to say that he just received his machine and feels that his pressures are way too high. Tried to use it last night and could not keep it on as it caused pain in his ears, nose and eyes. PT wondering if we can adjust the pressure down remotely. documented in this encounter Plan of Treatment Upcoming Encounters Date Type Specialty Care Team Description 05/08/2022 Telemedicine Sleep Medicine El Sinclair Jr., MD [address] [place] [address] 2 [place], [place] [phone] (Wo rk) documented as of this encounter Visit Diagnoses Diagnosis ADELAIDE (obstructive sleep apnea) - Primary Obstructive sleep apnea (adult) (pediatr ic) documented in this encounter Orders Equipment Count Last Ordered Date First Ordered Date CPAP/BIPAP GENERAL ORDER 1 02/04/2021 documented in this encounter Care Teams Enterprise Application Analyst Relationship Specialty Start Date End Date Jj Lopez Jr., DO PCP - General 10/22/[address] [place] [phone] documented as of this encounter
--- OUTSIDE RECORDS SUMMARY | 2022-03-21 09:35 | XMS_ITS | Encounter Summary ---
:1975 Author Organization [facility] Address [address] [place] [address] Care Team Providers Name Role Phone Jessica Morgan DO, Ernesto Primary Care Provider Reason for Visit Cardiology (Routine/Next Available) - Authorized Specialty Diagnoses / Procedures Referred By Contact Refer red To Contact Cardiology Diagnoses ARELLANO (dyspnea on exertion) Jj Lopez Jr., DO [facility] Procedures NM CARD SPECT NUCLEAR STRESS [address] [place] [address] [place] [address] [place] [address] Fax: Referral ID Status Reason Start Date Expiration Date Visits V isits Requested Authorized [id number] Authorized 08/31/2020 1 1 Encounter Details Date Type Department Care Team Description 10/22/2020 Hospital Encounter [facility] Non-Invasive Cardiology - Main [place] [facility] [address] [place], [place] [address] [phone] Social History Tobacco Use Types Packs/Day Years [...] been in contact with No / Unsure 10/13/2020 17:23 EST someone who was confirmed or suspected [...] Telemedicine Sleep Medicine El Sinclair Jr., MD [address] [place] [address], [facility] 2 [place], [place] [phone] (Wo rk) documented as of this encounter Procedures Procedure Name Priority Date/Time Associated Diagnosis Comme nts NM CARD SPECT Routine 10/29/2020 12:05 ARELLANO (dyspnea on Results for this NUCLEAR STRESS EST exertion) procedure are in the results section. documented in this encounter Visit Diagnoses Not on filedocumented in this encounter Administered Medications Inactive Administered Medications - up to 3 most recent administrations Medication Order MAR Action Action Date Dose Rate Site regadenoson (LEXISCAN) injection Given 10/22/2020 11:20 EST 0.4 mg syringe 0.4 mg 0.4 mg, intravenous, NOW X1, 1 dose, On Sun10/22/20 at 1130, Routine documented in this encounter Orders Medications Ordered That Might Not Have Count Last Ord ered Date First Ordered Date Been Administered regadenoson (LEXISCAN) injection syringe 1 021 0.4 mg IV Count Last Ordered Date First Ordered Date IV REQUEST 1 10/22/2020 documented in this encounter Care Teams Joint Sealer Relationship Specialty Start Date End Date Jj Lopez Jr., DO PCP - General 10/22/[address] [place] [phone] documented as of this encounter
--- OUTSIDE RECORDS SUMMARY | 2022-03-21 09:35 | XMS_ITS | Encounter Summary ---
:1975 Author Organization [facility] Address [address] [place] [address] Care Team Providers Name Role Phone Unknown, Provider Primary Care Provider Reason for Referral Sleep Study (Routine/Next Available) - Authorized Specialty Diagnoses / Procedures Referred By Contact Refer red To Contact Sleep Medicine Diagnoses Obstructive sleep apnea [facility] Procedures PAP TITRATION POLYSOMNOGRAM (CPAP/BIPAP TITRATION POLYSOMNOGRAM) Beck Morgan MD [address] [place] [address] Phone: [phone] Referral ID Status Reason Start Date Expiration Date Visits V isits Requested Authorized [id number] Authorized 06/29/2020 1 1 Reason for Visit Reason Comments Follow-up Encounter Details Date Type Department Care Team Description 06/29/2020 Telemedicine [facility] El Sinclair Obstruc tive sleep Sleep Program - S Beck Morgan MD apnea (Primary Dx) [place] [phone] (Wo rk) Social History Tobacco Use [...] Progress Notes El Sinclair Jr., MD - 06/29/2020 0900 EDT TELEMEDICINE VIDEO VISIT Today's visit was [...] patient???s medical or mental health care. I saw patient in video visit today. He had been diagnosed with severe sleep apnea in past but did not follow-up as recommended after last sleep study. Split-night study had been ordered for October 25, 2018. Positive airway pressure was not applied. The study was positive for severe sleep apnea with an AHI of 51.8 and low oxygen saturation 88%. In past patient had difficulty tolerating CPAP. He also had issues with mask fitting. He will likelybenefit from bilevel positive airway pressure. Assessment: Severe obstructive sleep apnea. Plan: 1. Patient will be scheduled to undergo nocturnal polysomnography with positive airway pressure titration. If CPAP not tolerated bilevel Pap titration will be conducted. 2. Patient has been advised not to operate a motor vehicle when feeling sleepy and to take appropriate countermeasures should sleepiness develop while driving. 3. Flow generator will be ordered after study and patient will follow up approximately 90 days afterreceipt of flow generator to review compliance. I spent a total of 15 minutes in face to face time with this patient today and greater than 50% of that time was spent in counseling and coordination of care as described in the progress note. El Sinclair Jr., MD 06/29/2020 13:30 Portions of this document may contain text elements generated through computerized voice recognitiontechnology. Undetected computer-generated word errors are possible. Please notify the signing provider if clarification or correction is needed. documented in this encounter Plan of Treatment Upcoming Encounters Date Type Specialty Care Team Description 05/08/2022 Telemedicine Sleep Medicine El Sinclair Jr., MD [address] [place] [address], [address] [place], [place] [phone] (Wo rk) Scheduled Orders Name Type Priority Associated Diagnoses Order S chedule PAP TITRATION Sleep Center Routine Obstructive sleep Ordered: POLYSOMNOGRAM apnea 06/29/2020 (CPAP/BIPAP TITRATION POLYSOMNOGRAM) documented as of this encounter Visit Diagnoses Diagnosis Obstructive sleep apnea - Primary Obstructive sleep apnea (adult) (pediatr ic) documented in this encounter Care Teams Medical Technologist Prn Relationship Specialty Start Date End Date Unknown, Provider, PCP - General 03/05/20 10/21/20 documented as of this encounter
--- OUTSIDE RECORDS SUMMARY | 2022-03-21 09:35 | XMS_ITS | Encounter Summary ---
:1975 Author Organization [facility] Address [address] [place] [address] Care Team Providers Name Role Phone Unknown, Provider Primary Care Provider Jessica Morgan DO, Ernesto Primary Care Provider Encounter Details Date Type Department Care Team Description 06/18/2020 Telephone [facility] El [facility] Anand Morgan MD [address], [address] [place], [place] [phone] [place] [phone] (Wo rk) Social History Tobacco Use [...] this encounter Miscellaneous Notes Telephone Encounter - Bibi Dixon - 06/18/2020 1734 EDT Emailed Zoom invite for upcoming tele-health sarbjit. 06/29 9am ID [id number] PASS [id number] signed by Bibi Dixon at 06/18/2020 17:39 EDT documented in this encounter Plan of Treatment Upcoming Encounters Date Type Specialty Care Team Description 05/08/2022 Telemedicine Sleep Medicine El Sinclair Jr., MD [address] [place] [address], [address] [place], [place] [phone] (Wo rk) documented as of this encounter Visit Diagnoses Not on filedocumented in this encounter Care Teams Merchandising Manager Relationship Specialty Start Date End Date Unknown, Provider, PCP - General 03/05/20 10/21/20 Jj Lopez Jr., PCP - General 10/22/20 [address] [place] [address] documented as of this encounter
--- OUTSIDE RECORDS SUMMARY | 2022-03-21 09:35 | XMS_ITS | Encounter Summary ---
:1975 Author Organization [facility] Address [address] [place] [address] Care Team Providers Name Role Phone Jessica Morgan DO, Ernesto Primary Care Provider Reason for Visit Cardiology (Routine/Next Available) - Authorized Specialty Diagnoses / Procedures Referred By Contact Refer red To Contact Cardiology Diagnoses ARELLANO (dyspnea on exertion) Jj Lopez Jr., DO [facility] Procedures NM CARD SPECT NUCLEAR STRESS [address] [place] [address] [facility] [place] [address] [place] [address] Fax: Referral ID Status Reason Start Date Expiration Date Visits V isits Requested Authorized [id number] Authorized 08/31/2020 1 1 Encounter Details Date Type Department Care Team Description 10/29/2020 Hospital Encounter edical Center Radiology Nuclear Medicine and PET - M [address] [address] Social History Tobacco Use Types Packs/Day Years [...] Telemedicine Sleep Medicine El Sinclair Jr., MD [address] [place] [address] 2 [place], [place] [phone] (Wo rk) documented as [...] MAR Action Action Date Dose Rate Site technetium (Tc-99m) Given 10/29/2020 9:50 EST 31.1 millicuries sestamibi injection 8 millicurie 8 millicurie, intravenous, NOW X1, 1 dose, On Sun10/29/20 at 1030, Routine, Imaging Protocol Orders documented in this encounter Orders Medications Ordered That Might Not Have Count Last Ord ered Date First Ordered Date Been Administered technetium (Tc-99m) sestamibi injection 8 1 2020 channing documented in this encounter Care Teams Director Of Health Care Marketing Relationship Specialty Start Date End Date Jj Lopez Jr., PCP - General 10/22/[address] [place] [phone] documented as of this encounter
--- OUTSIDE RECORDS SUMMARY | 2022-03-21 09:35 | XMS_ITS | Encounter Summary ---
:1975 Author Organization [facility] Address [address] [place] [address] Care Team Providers Name Role Phone Unknown, Provider Primary Care Provider Reason for Visit Reason Onset Date Comments Pre-visit Orders 06/15/2020 Sleep study sched on 07/11/20. Pre-procedure Covid order Appointment Related 06/15/2020 Encounter Details Date Type Department Care Team Description 06/15/2020 Telephone [facility] Ami Rubio RN Pre-visit Orders Sleep Program - S [address] [facility] ([place] [address] 07/11/20. Pre-procedure 1 [facility] Covid order ); [place] [address] Social History Tobacco Use Types Packs/Day Years [...] Notes Telephone Encounter - Alba Yoo - 06/15/2020 1505 EDT Called pt to schedule PAP TITRATION 1:1 ENDO Date offered is 07.11.20 @ 2130 LMOM w/ details to call back for scheduling elephone Encounter - Melody Robles APRN - 06/15/2020 0845 EDT COVID order signed elephone Encounter - Nhi Rubio RN - 06/15/2020 0823 EDT Sleep study scheduled for 07/11/20. Pre-procedure CoVid (asymptomatic) order pended to Melody Robles NP. documented in this encounter Plan of Treatment Upcoming Encounters Date Type Specialty Care Team Description 05/08/2022 Telemedicine Sleep Medicine El Sinclair Jr., MD [address] [place] [address], [address] [place], [place] [phone] (Wo rk) documented as of this encounter Visit Diagnoses Diagnosis Encounter for preoperative screening lab oratory testing for COVID-19 virus - Primary documented in this encounter Care Teams Public Safety Police Relationship Specialty Start Date End Date Unknown, Provider, PCP - General 03/05/20 10/21/20 documented as of this encounter
--- OUTSIDE RECORDS SUMMARY | 2022-03-21 09:35 | XMS_ITS | Encounter Summary ---
:1975 Author Organization [facility] Address [address] [place] [address] Care Team Providers Name Role Phone Jessica Morgan DO, Ernesto Primary Care Provider Reason for Visit Reason Comments Exertional Dyspnea Encounter Details Date Type Department Care Team Description 02/01/[address] [facility] Libby [place] nd ADELAIDE (obstructive Cardiology - [address] [facility] sleep apnea) (Primary [address] [place] [address] Dx) [place], [place] [phone] ( Work) [address] [phone] Social History Tobacco Use Types Packs/Day Years [...] on file documented as of this encounter Last Filed Vital Signs Vital Sign Reading Time Taken Comments Blood Pressure 130/78 02/01/2021 1759 EDT Pulse 130 02/01/2021 1759 EDT Temperature - - Respiratory Rate - - Oxygen Saturation 98% 02/01/2021 1759 EDT Inhaled Oxygen Concentration - - Weight 199.6 kg (440 lb) 02/01/2021 1759 EDT Height - - Body Mass Index 53.56 12/11/20202036 EDT documented in this encounter Functional Status [...] documented as of this encounter Progress Notes Francisco Mccoy MD - 02/01/20211814 EDT Attestation statement: I discussed the patient with the resident/fellow at the time of the visit. I agree with the findings and the plan of care documented in the resident's/fellow's note. Dayron Lozano - 02/01/20211814 EDT Cardiology Follow Up 02/01/21 Chief complaint: Exertional Dyspnea Assessment & Plan Brian Ko is a 45 y.o. male with severe ADELAIDE and PMH of tobacco use, obesity presenting for followup Recent Surface TTE although limited by poor windows shows a preserved EF Given his recent alteration to his BiPAP, adherence to this would reduce his risk of future CVD complications such as HTN, HFpEF, Afib He was counselled to keep his Sleep Clinic appointments Recent NM SPECT with STRESS only protocol did not show any defects - Recommend continued follow up with PCP/Pulmonology to treat underlying ADELAIDE - His cardiac testing so far does not indicate he has developed any clear complications of HTN/Afib or HFpEF however he certainly is at high risk to - Given a unremarkable NM SPECT, unlikely his symptoms are due to CAD. Can return to Cardiology clinic PRN for any new Cardiovascular issues Diagnoses and all orders for this visit: ADELAIDE (obstructive sleep apnea) Return if symptoms worsen or fail to improve. Dayron Valladares Brian Ko is a 45 y.o. male past medical history of extremely morbid obesity, ADELAIDE, active smoker who established care with myself through a video visit in May 2020 with CC of easy fatiguability andSOB on minimal exertion. At the time he stated that his symptoms were progressive and he was able to barely walk from his carto his home before getting short of breath. He denied any clear symptoms of angina, orthopnea or PND. He also denies any symptoms of syncope, palpitations, lightheadedness or dizziness. He denied usingany excessive salt, abdominal pain, diarrhea or constipation. Since the last visit with the patient he underwent another sleep study which was terminated due to issues with mask fitting. He then saw Dr. Leslie after his recent has been prescribed multiple bilevel positive airway pressure EPAP minimum 4 cm, pressure support and IPAP maximum of 16 cm. He was also asked to contact the sleep program and describe any specifics therapy. Is also asked to avoid operating a motor vehicle he was feeling sleepy and should drowsiness developed while driving. He is to follow-up with the sleep clinic approximately 6 weeks time. Today Mr. Ko comes into the clinic to see me as extremely frustrated at the slow progress he has made with his ADELAIDE treatment. He states that he is willing to go as far as getting a tracheostomy done given that the machine/BiPAP does not really help him. He also states that given that he is a very shallow breather he often feels that he is inhaling a lot of the same and he exhales while on the machine and hence has been unable to get a restful night sleep. He is also frustrated at the fact that he has been out of work and has continued to gain weight given the fact that he has been unable to exercise or do any physical activity due to his deconditioning. I did update him on the results of the surface echocardiogram as well as his NM stress only SPECT test. He continues to deny any symptoms of chest pain/angina. He also denies any progressive lower extremity swelling. Review of Systems Constitutional: Positive for malaise/fatigue. Respiratory: Positive for shortness of breath. Negative for cough and wheezing. Cardiovascular: Positive for palpitations. Negative for chest pain. Neurological: Negative for dizziness, speech change, focal weakness, seizures, loss of consciousnessand headaches. Psychiatric/Behavioral: Negative for hallucinations and suicidal ideas. See subjective for pertinent positives and negatives Problem List and History were reviewed in the EMR Outpatient Medications Marked as Taking for the 02/01/21 encounter (Office Visit) with Dayron Cortes: ??? gabapentin (NEURONTIN) 300 mg capsule, Take by mouth daily. ??? ibuprofen (MOTRIN) 600 mg tablet, Take 600 mg by mouth as needed for Pain. Objective BP 130/78 (BP Cuff Location: Left arm, BP Patient Position: Sitting, BP Cuff Sizes: Adult, large) Pulse (!) 130 Wt (!) 199.6 kg (440 lb) SpO2 98% BMI 53.56 kg/m?? Physical Exam Constitutional: He is oriented to person, place, and time. He appears well- developed and well-nourished. No distress. HENT: Head: Normocephalic and atraumatic. Eyes: Pupils are equal, round, and reactive to light. Neck: Normal range of motion. Neck supple. No thyromegaly present. Cardiovascular: Normal heart sounds. Exam reveals no gallop and no friction rub. No murmur heard. Regular, tachycardic Pulmonary/Chest: Effort normal and breath sounds normal. No respiratory distress. He has no wheezes. Abdominal: Soft. Bowel sounds are normal. He exhibits no distension. There is no abdominal tenderness. Musculoskeletal: Normal range of motion. General: No edema. Neurological: He is alert and oriented to person, place, and time. No cranial nerve deficit. Coordination normal. Skin: Skin is warm and dry. No rash noted. He is not diaphoretic. No erythema. Psychiatric: He has a normal mood and affect. His behavior is normal. Diagnostics: TTE 06/18/20 ??? Left Ventricle: Left ventricular systolic function was normal with an ejection fraction of 60-65%. ??? Left Ventricle: With use of definity, left ventricular wall motion was normal; there were no regional wall motion abnormalities. NM SPECT Pharm Stress ONLY ??? Perfusion: There was no myocardial perfusion defect at rest and post stress. ??? Function: Global LV function is normal. Post-stress ejection fraction is 70 %. ??? Stress ECG: Stress ECG was negative. ??? Impression: Normal study after pharmacological stress. I spent a total of 20 minutes on the date of this encounter meeting with the patient and reviewing documentation/coordinating care as described in the above note. documented in this encounter Plan of Treatment Upcoming Encounters Date Type Specialty Care Team Description 05/08/2022 Telemedicine Sleep Medicine El Sinclair Jr., MD [address] [facility], [address] [place], [place] [phone] (Wo rk) documented as of this encounter Visit Diagnoses Diagnosis ADELAIDE (obstructive sleep apnea) - Primary Obstructive sleep apnea (adult) (pediatr ic) documented in this encounter Care Teams Hospitality Specialist Relationship Specialty Start Date End Date Jj Lopez Jr., PCP - General 10/22/[address] [place] [id number] documented as of this encounter
--- OUTSIDE RECORDS SUMMARY | 2022-03-21 09:35 | XMS_ITS | Encounter Summary ---
:1975 Author Organization [facility] Address [address] [place] [address] Care Team Providers Name Role Phone Unknown, Provider Primary Care Provider Reason for Referral Sleep Study (Routine) - Closed Specialty Diagnoses / Procedures Referred By Contact Refer red To Contact Diagnoses Dyspnea on exertion Tori Fuller MD [facility] PAP TITRATION POLYSOMNOGRAM (CPAP/BIPAP TITRATION POLYSOMNOGRAM) 62 [facility] [address] [place] [phone] Referral ID Status Reason Start Date Expiration Date Visits Requ ested Visits Authorized [id number] Closed 05/11/2020 1 1 ardiology (Routine) - Authorized Specialty Diagnoses / Procedures Referred By Contact Refer red To Contact Cardiology Diagnoses Dyspnea on exertion Tori Fuller MD [facility] Cardiology Procedures TRANSTHORACIC ECHO (TTE) COMPLETE 62 [facility] [address] [facility] [address] Phone: [phone] Referral ID Status Reason Start Date Expiration Date Visits V isits Requested Authorized [id number] Authorized 05/11/2020 1 1 Reason for Visit Reason Comments Shortness of Breath Consult (Urgent) - Authorization Not Required Specialty Diagnoses / Procedures Referred By Contact Refer red To Contact Cardiology Diagnoses Syncope and collapse Carolina Aguirre NP [facility] [address] [facility] [place] [address] [place] [phone] Referral ID Status Reason Start Expiration Visits Visits Date Date Requested Authorized [id number] Authorization Not 1 1 Required Encounter Details Date Type Department Care Team Description 05/11/2020 Telemedicine [facility] Libby Norwood nd Dyspnea on exertion (Primary Dx); Cardiology - [place] [address] [facility] A[place]LA[place] (obstructive sleep apnea) [address] [place] [address] [place], [place] [phone] ( Work) [address] [phone] Social History Tobacco Use Types Packs/Day Years [...] documented as of this encounter Progress Notes Tori Fuller MD - 05/11/2020 4599 EDT I saw and discussed the patient on 05/11/20 and agree with the above plan documented by the fellow/resident/CHEMICAL UNIT OPERATOR. Tori Fuller MD [employer], #[id number] Dayron Lozano - 05/11/2020 0256 EDT Cardiology Consult Telemedicine/Video visit 05/11/20 Assessment/Recommendations Brian Ko is a 45 y.o. male with extremely morbid obesity, active smoker and ADELAIDE not on treatmentwho presents with symptoms of easy fatigability and shortness of breath likely secondary to his untreated ADELAIDE and potentially undiagnosed heart failure with preserved EF His echocardiogram from 2017 did not show any significant abnormalities We will recommend a surface transthoracic echocardiogram at this time to look for diastolic dysfunction We also strongly recommend a repeat sleep apnea test with appropriate testing and a well fitting mask that he can use going forward. He is at high risk for further cardiovascular complications such as heart failure with preserved EF/atrial fibrillation given his untreated ADELAIDE. He is also at risk of developing further complications such as hypertension from his untreated ADELAIDE as well. Given that he lives near to [facility], we will try to get his care coordinated over there at this time. He can follow-up with us in approximately 3 months. Case discussed with Dr Fuller No follow-ups on file. Subjective: Brian Ko is a 45 y.o. male with a past medical history of extremely morbid obesity, ADELAIDE, active smoker who presents as a tele-visit with myself with a chief complaint of easy fatigability,shortnessof breath on minimal exertion The patient states that this has been progressive and his exercise capacity is severely reduced. He states that he can barely climb 1.5 flights of stairs before getting short of breath. He also states that he can walk barely from his car to his home before getting short of breath. He denies any symptoms of chest pain, angina, chest tightness, orthopnea or PND. He also denies any symptoms of syncope. He however has noticed some progressive lower extremity swelling of both his limbs. He denies any diagnosis of high blood pressure or diabetes. He states that his systolic blood pressures have been 110???130. He is an active smoker with a 20+ pack year smoking history and currently smokes 1 pack/day. He was smoking during the interview. The patient denies any addition of excessive salt to his diet. He also denies any abdominal pain, diarrhea or constipation. He states that he usually has a non-restful sleep and has not been using his CPAP machine because it has not been fitting well. He feels suffocated with the mask. 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 In the past El Cheng had discussed polysomnography with CPAP to be applied in a split-night fashion. He did state that the patient experiences difficulty exhaling against CPAP and hence a bilevel Pap would be applied and titrated. However in early 2018, a sleep study showed severe obstructive sleep apnea with an AHI of 15.8. The results of his diagnostic polysomnogram were reviewed (CPAP was not applied during study). At this time the patient is very reluctant to use his mask and continues to feel extremely frustrated that we are unable to cure his ADELAIDE without a machine. Review of Systems Review of Systems Constitutional: Negative for chills and fever. Respiratory: Negative for cough. Cardiovascular: Positive for leg swelling. Negative for chest pain and orthopnea. Neurological: Negative for dizziness and weakness. 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 Sleep apnea Past Surgical History: Procedure Laterality Date ??? EXTERNAL AUDITORY CANAL RECONSTRUCTION ??? TYMPANOSTOMY TUBE PLACEMENT Social History Family history Social History Tobacco Use ??? Smoking status: Current Every Day Smoker Packs/day: 1.00 Years: 17.00 Pack years: 17.00 Start date: 06/18/2018 ??? Smokeless tobacco: Never Used Substance Use Topics ??? Alcohol use: Yes Comment: occasionally ??? Drug use: No No family history on file. Current Outpatient Medications Medication ??? gabapentin (NEURONTIN) 100 mg capsule ??? ibuprofen (MOTRIN) 600 mg tablet ??? levOFLOXacin (LEVAQUIN) 750 mg tablet ??? OMEGA-3S/DHA/EPA/FISH OIL (OMEGA 3 ORAL) No current facility-administered medications for this visit. Allergies Allergies Allergen Reactions ??? Keflex [Cephalexin] Nausea And Vomiting Objective: There were no vitals taken for this visit. Physical Exam Constitutional: He appears well-developed and well-nourished. He appears distressed. Psychiatric: He has a normal mood and affect. His behavior is normal. Patient seems extremely frustrated The patient did show on the telemetry video visit his pitting pedal edema up to his mid solorzano Diagnostics: TTE 12/2016 Impressions: ??Normal study. Summary: 1. Left ventricle: The cavity size was normal. Wall thickness was at the ? upper limits of normal. Systolic function was normal. The estimated ? ejection fraction was 55-60%. Wall motion was normal; there were no ? regional wall motion abnormalities. 2. Right ventricle: The cavity size was normal. Wall thickness was ? normal. Systolic function was normal. 12/2016 48 hour holter Reason for Holter: dizziness Baseline: sinus tachycardia Avg/max/min HR: 100/156/63 No Ventricular or Atrial ectopy seen No diary provided Dayron Norwood 05/11/2020 17:59 I spent a total of 50 minutes with Brian Ko today and 40 minutes of that time was spent in counseling and coordination of care as described in the progress note. TELEMEDICINE VIDEO VISIT Today's visit was provided through telemedicine video conferencing: The location of the patient : Home The location of the provider: Clinic Exam Room The following staff and their role did participate in today's encounter visit: Dayron Norwood/ Dr Tori Fuller Today's visit was provided through telemedicine video conferencing: The location of the patient : Home The location of the provider: Clinic Exam Room The following staff and their role did participate in today's encounter visit: Dayron Norwood / Dr Tori Fuller Bruna Beltran - 05/11/2020 1715 EDT The concept of ???Telemedicine?? has been described [...] in patient???s medical or mental health care. documented in this encounter Plan of Treatment Upcoming Encounters Date Type Specialty Care Team Description 05/08/2022 Telemedicine Sleep Medicine El Sinclair Jr., MD [address] [place] [address] [address] [place], [place] [phone] (Wo rk) Scheduled Orders Name Type Priority Associated Diagnoses Order S chedule PAP TITRATION Sleep Center Routine Dyspnea on exertion Ordered : POLYSOMNOGRAM 05/11/2020 (CPAP/BIPAP TITRATION POLYSOMNOGRAM) documented as of this encounter Visit Diagnoses Diagnosis Dyspnea on exertion - Primary Other dyspnea and respiratory abnormalit y ADELAIDE (obstructive sleep apnea) Obstructive sleep apnea (adult) (pediatr ic) documented in this encounter Orders Echocardiography Count Last Ordered Date First Ordered Date TRANSTHORACIC ECHO (TTE) COMPLETE 1 05/11/2020 documented in this encounter Care Teams Bilingual Recruiter Relationship Specialty Start Date End Date Unknown, Provider, PCP - General 03/05/20 10/21/20 documented as of this encounter
--- OUTSIDE RECORDS SUMMARY | 2022-03-21 09:35 | XMS_ITS | Encounter Summary ---
:1975 Author Organization [facility] Address [address] [place] [address] Care Team Providers Name Role Phone Jessica Morgan DO, Ernesto Primary Care Provider Reason for Visit Reason Onset Date Comments Appointment Related 03/08/2021 Encounter Details Date Type Department Care Team Description 03/08/2021 Telephone [facility] El Sinclair Appoint ment Related Sleep Program - S Beck Morgan MD [address], [address] [place] [address] [place], [place] [phone] (Wo rk) Social History Tobacco Use [...] this encounter Miscellaneous Notes Telephone Encounter - Rolly Marcos MA - 06/24/2021 1422 EDT Meeting ID: [id number] Password: [id number] elephone Encounter - Cristina Denny - 03/08/2021 1203 EDT Pt called to schedule 4 MOS FUR. 06.27.21 @ 11:00 am REMOTE ACCESS 4 MOS FUR ZOOM LTR NEEDED documented in this encounter Plan of Treatment Upcoming Encounters Date Type Specialty Care Team Description 05/08/2022 Telemedicine Sleep Medicine El Sinclair Jr., MD 1 [facility], [address] [place], [place] [phone] (Wo rk) documented as of this encounter Visit Diagnoses Not on filedocumented in this encounter Care Teams Sapphire Stylus Grinder Relationship Specialty Start Date End Date Jj Lopez Jr., DO PCP - General 10/22/[address] [place] [phone] documented as of this encounter
--- OUTSIDE RECORDS SUMMARY | 2022-03-21 09:35 | XMS_ITS | Encounter Summary ---
:1975 Author Organization [facility] Address [address] [place] [address] Care Team Providers Name Role Phone Unknown, Provider Primary Care Provider Jessica Morgan DO, Ernesto Primary Care Provider Reason for Visit Reason Onset Date Comments Appointment Related 09/14/2020 Encounter Details Date Type Department Care Team Description 09/14/2020 Telephone [place] El [facility] - S Beck Morgan MD [address], [address] [place], [place] [address] [place] [address] [phone] (Wo rk) Social History Tobacco Use [...] Notes Telephone Encounter - Alba Yoo - 09/14/2020 1525 EST Pt called to schedule Sleep study - SPECIAL CASE, TITRATION - Referral was closed and resent for PA and checking for date for Special cases. PT would like a call back to schedule JIMMY documented in this encounter Plan of Treatment Upcoming Encounters Date Type Specialty Care Team Description 05/08/2022 Telemedicine Sleep Medicine El Sinclair Jr., MD [address] [place] [address], [address] [place], [place] [phone] (Wo rk) documented as of this encounter Visit Diagnoses Not on filedocumented in this encounter Care Teams [employer] Social Science Teacher Relationship Specialty Start Date End Date Unknown, Lia, PCP - General 03/05/20 10/21/20 Jj Lopez Jr., PCP - General 10/22/20 [address] [place] [address] documented as of this encounter
--- OUTSIDE RECORDS SUMMARY | 2022-03-21 09:35 | XMS_ITS | Encounter Summary ---
:1975 Author Organization [facility] Address [address] [place] [address] Care Team Providers Name Role Phone Jessica Morgan DO, Ernesto Primary Care Provider Reason for Visit Reason Onset Date Comments Appointment Related 03/16/2021 Encounter Details Date Type Department Care Team Description 03/16/2021 Telephone [facility] El Sinclair Appoint ment Related Sleep Program - S Beck Morgan MD [address], [address] [place] [address] [place], [place] [phone] (Wo rk) Social History Tobacco Use [...] this encounter Miscellaneous Notes Telephone Encounter - Chacorta Nugent - 03/16/2021 1611 EDT Patient was very irritated about the amount of time that it took for us to call him to be scheduled for a mask fitting. 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 documented in this encounter Plan of Treatment Upcoming Encounters Date Type Specialty Care Team Description 05/08/2022 Telemedicine Sleep Medicine El Sinclair Jr., MD 1 [facility], [facility] 2 [place], [place] [phone] (Wo rk) documented as of this encounter Visit Diagnoses Not on filedocumented in this encounter Care Teams Manager Pest Relationship Specialty Start Date End Date Jj Lopez Jr., DO PCP - General 10/22/[address] [place] [address] documented as of this encounter
--- OUTSIDE RECORDS SUMMARY | 2022-03-21 09:35 | XMS_ITS | Encounter Summary ---
:1975 Author Organization [facility] Address [address] [place] [address] Care Team Providers Name Role Phone Jessica Morgan DO, Ernesto Primary Care Provider Encounter Details Date Type Department Care Team Description 11/14/2021 Lab Requisition [facility] Arnie Murillo N ontoxic multinodular Pathology & MD tovar Laboratory Medicine [address] [facility] FW[place] [address] [facility] QUINT[place] [address] [place] [phone] Social History Tobacco Use Types Packs/Day Years [...] Sleep Medicine El Sinclair Jr., MD 1 [facility] [employer], Level 2 [place], [place] [phone] (Wo rk) documented as of this encounter Procedures Procedure Name Priority Date/Time Associated Diagnosis Comme nts NON MEDIA ASSOCIATE/FNA Today 11/11/2021 11:45 Nontoxic multinodular Re sults for this CYTOLOGY EST goiter procedure are i n the results section. documented in this encounter Results NON MEDIA ASSOCIATE/FNA CYTOLOGY (11/11/2021 11:45 EST) Pathologist Sig nature Note to Patient The following [facility] pathology results [facility] have been SERVICES interpreted by your pathologist and may be available to you before your health provider has had the opportunity to review them. Please allow time for your provider to receive these results and explore management options, if applicable. Final Diagnosis A. THYROID, LEFT, NODULE, ULTRASOUND-GUIDED ASPI RATION: [facility] - Benign follicular nodule. See comment. [facility] Diagnosis Comment Cytologic [facility] evaluation reveals [facility] acellular specimen SERVICES composed numerous variably sized sheets of bland appearing follicular cells in a background of blood and scant colloid. These findings are consistent with a benign follicular nodule. Attestation By the signature below, the attending physician certifies that they have personally conducted a gross and/or microscopic [facility] Electronically signed examination of the described specimens and rendered or confirmed the above diagnosis. [facility] by Schuyler Tucker MD on 11/15/19 22 at 1630 Rapid Diagnosis THYROID, LEFT, ULTRASOUND-GUIDED FINE NEEDLE ASP IRATION: [facility] Evaluation episode #1: Pass 1 and 4: Adequate fo r assessment. [facility] Pass 2 and [address] Choi[address] Raffi Allen 11/11/2021 Rapid evaluation of this Fin e Needle Aspiration sample was performed by Pathologists at [facility], [address] [place] [address]. Clinical History Left thyroid [facility] nodule, solid [facility] hypoechoic, SERVICES smoothly marginated 4.5 x 3.8 x 2.9 cm, TIRADS 4; Multinodular goiter; clinical diagnosis code: E04.2 Gross Description A. [facility] 2 fixed prepared slides, 2 D iff Quik prepared slides, and 1 tube of CytoLyt were received and processed by selective cellular enhancement technique. [facility] Performing Lab [facility] Scanned Images [facility] Specimen Fine Needle Aspirate - Entire left lobe of thyroid gland (body structure) Performing Organization Address City/State/ZIP Code Phon e Number [facility] [address] [place] [address] SERVICES documented in this encounter Visit Diagnoses Diagnosis Nontoxic multinodular goiter documented in this encounter Care Teams Residential Advisor Relationship Specialty Start Date End Date Jj Lopez Jr., DO PCP - General 10/22/[address] [place] [phone] documented as of this encounter
--- OUTSIDE RECORDS SUMMARY | 2022-03-21 09:35 | XMS_ITS | Encounter Summary ---
:[address] [facility] Address [address] [place] [address] Care Team Providers Name Role Phone Jessica Morgan DO, Ernesto Primary Care Provider Reason for Visit Reason Comments Titration Polysomnogram w/TcCO2 Sleep Study (Routine/Next Available) - Authorized Specialty Diagnoses / Procedures Referred By Contact Refer red To Contact Sleep Medicine Diagnoses Obstructive sleep apnea [facility] Procedures PAP TITRATION POLYSOMNOGRAM (CPAP/BIPAP TITRATION POLYSOMNOGRAM) Beck Morgan MD [address], Level 2 [place] [address] [place] Phone: [phone] Referral ID Status Reason Start Date Expiration Date Visits V isits Requested Authorized [id number] Authorized 06/29/2020 1 1 Encounter Details Date Type Department Care Team Description 12/11/2020 Office Visit [facility] Polysomnogram, Obstruc tive sleep apnea Sleep Program - Main Pat 5 (Primar y Dx) [facility] [address] [place] [address] Social History Tobacco Use Types Packs/Day Years [...] Sign Reading Time Taken Comments Blood Pressure - - Pulse - - Temperature - - Respiratory Rate - - Oxygen Saturation - - Inhaled Oxygen Concentration - - Weight 199.6 kg (440 lb) 12/11/20202036 EDT Height 193 cm (6' 4) 12/11/20202036 EDT Body Mass Index 53.56 12/11/20202036 EDT documented [...] Progress Notes El Sinclair Jr., MD - 12/11/2020 2100 EDT Titration Polysomnogram (w/TcCO2) on 12/11/2020 [facility] SLEEP [facility]GRAM [address] [place] [address] / fax [phone] In Summary: * Failure of CPAP/bilevel PAP titration. line technician notes CPAP first trialed but not tolerateddue to difficulty exhaling despite adjustments of pressure, flex, and heated humidier settings. Bilevel PAP then trialed at pressures of 8/4, 10/6, and 12/8 cm but per facilities operations technician notes patient stated he was feeling as he just about falls asleep that he starts to lose air and wakes up (wake to sleep transitional apneas were noted). Additionally patient reported pressure in ears at 12/8 cm. recovery advocate MD contacted and approved bilevel ST with adjustments to help patient tolerate PAP. Inspiratory time of 2 reportedly seemed comfortable for patient as he was reporting difficulty fully inhaling and was trialed for 10-20 minutes but patient requested to discontinue and terminate study early. * The patient slept a total of 11 minutes on PAP. Position: Supine: 11.5 min. L- Lateral: 0.0 min. R-Lateral: 0.0 min. Prone: 0.0 min. Bed Elevation and # of pillows used: 30 degrees, 2 hospital pillowsSleep efficiency 6% with sleep onset latency 32 minutes and wakefulness after sleep onset 142.5 minutes. Sleep stage percentages: REM 0% (00 minutes). N1 96% (11 minutes). N2 4% (00 minutes). N3 0% (00minutes). Arousal Index: 162/hour. Total # Arousals: 31. The patient used the F20 Large mask. * No significant Periodic Limb Movements (PLMs). * TcCO2 was 37 mmHg at beginning of study in supine wake and did not exceed 41 mmHg during testing. Plan: * Patient will be scheduled to follow up with to discuss results of testing, reasons for reported PAP intolerance, and management. El Sinclair Jr., MD 12/19/2020 15:41 Portions of this document may contain text elements generated through computerized voice recognitiontechnology. Undetected computer-generated word errors are possible. Please notify the signing provider if clarification or correction is needed. This Sleep Study Report (including details) can be viewed under the Procedures Tab in the EMR (NuLabel)as a scanned file attachment. If the Sleep Study Report cannot be accessed, a copy can be obtained by contacting [facility] at [phone]. Kourtney Padilla - 12/11/2020 2100 EDT [facility] Sleep Study Early Termination Report The study for Brian Ko was terminated early. The study was terminated early because upon arrival, patient shared that the only reason he was there was to prove that he just needed to fail PAP therapy and then he would qualify for Inspire and could move on. He was trialed on CPAP, failed that, then switched over to BiLevel with many different adjustments to BiFlex, Humidifier settings, pressure to seek patient comfort. When this was ultimately failed as well due to the patient continually removing his mask, the residential collections MD was called, which was Dr. Brandt to seek approval to trial patient on S/T. The patient trialed this for a very brief period of time and then requested to leave. He refused to sign the Early Release Waiver as he did not feel he should have to pay for something that was not completed. However, the patient did agree to sign theWaiver of Liability form initialing all paragraphs except one that he did not agree to signing. The patient left at 0100 AM The patient did not take a sleep inducing medication. (Note: if the patient took a one of these, then the patient may not drive him or herself until [id number] and must either stay overnight or receive a ride from either a friend, family member, or cab service). The patient was set-up for the Sleep study, the recording was started, some sleep was recorded, but the study was terminated early. The patient left early and signed a waiver of early termination and attestation of safe to drive. The day staff have been emailed of this study termination, whether the patient needs to be rescheduled and what would be helpful to know when rescheduling the patient: Yes. documented in this encounter Plan of Treatment Upcoming Encounters Date Type Specialty Care Team Description 05/08/2022 Telemedicine Sleep Medicine El Sinclair Jr., MD [address] [place] [address] [address] [place], [place] [phone] (Wo rk) documented as of this encounter Procedures Procedure Name Priority Date/Time Associated Diagnosis Comme nts SLEEP STUDY REPORT - 12/19/2020 15:38 EDT SCANNED documented in this encounter Visit Diagnoses Diagnosis Obstructive sleep apnea - Primary Obstructive sleep apnea (adult) (pediatr ic) documented in this encounter Orders Procedures Count Last Ordered Date First Ordered Date SLEEP STUDY REPORT - SCANNED 1 12/19/2020 documented in this encounter Care Teams Weigher Alloy Relationship Specialty Start Date End Date Jj Lopez Jr., DO PCP - General 10/22/[address] [place] [address] documented as of this encounter
--- OUTSIDE RECORDS SUMMARY | 2022-03-21 09:35 | XMS_ITS | Encounter Summary ---
:1975 Author Organization [facility] Address [address] [place] [address] Care Team Providers Name Role Phone Jessica Morgan DO, Ernesto Primary Care Provider Reason for Referral Cardiology (Routine/Next Available) - Authorized Specialty Diagnoses / Procedures Referred By Contact Refer red To Contact Cardiology Diagnoses ARELLANO (dyspnea on exertion) Jj Lopez Jr., DO [facility] Procedures NM CARD SPECT NUCLEAR STRESS [address] [address] [place] [address] [place] [address] Fax: Referral ID Status Reason Start Date Expiration Date Visits V isits Requested Authorized [id number] Authorized 08/31/2020 1 1 Reason for Visit Cardiology (Routine/Next Available) - Authorized Specialty Diagnoses / Procedures Referred By Contact Refer red To Contact Cardiology Diagnoses ARELLANO (dyspnea on exertion) Jj Lopez Jr., DO [facility] Procedures NM CARD SPECT NUCLEAR STRESS [address] [address] [place] [address] [place] [address] Fax: Referral ID Status Reason Start Date Expiration Date Visits V isits Requested Authorized [id number] Authorized 08/31/2020 1 1 Encounter Details Date Type Department Care Team Description 10/22/2020 Hospital [facility] ARELLANOGigi medellin yspnea on Radiology Nuclear exertion) Medicine and PET - [address] [address] Social History Tobacco Use Types Packs/Day Years [...] Sleep Medicine El [facility] Jr., MD 1 [facility], Level 2 [place], [place] [address] (Wo rk) documented as of this encounter Procedures Procedure Name Priority Date/Time Associated Diagnosis Comme nts NM CARD SPECT Routine 10/29/2020 12:05 ARELLANO (dyspnea on Results for this NUCLEAR STRESS EST exertion) procedure are in the results section. documented in this encounter Results NM CARD SPECT PHARM STRESS ONLY SINGLE STUDY (10/29/2020 12:05 EST) Pathologist Sig nature Target HR 177 bpm ROBERTO [employer] MERGE CARDIO Angina Index 0 FABIOLARally SoftwareEMELIA [facility] MERGE CARDIO Pre test likelihood of 6 ROBERTO BRIDGESIS MERG E obstructive CAD CARDIO Nuc Stress EF 70 % ROBERTO [employer] CARDIO Anatomical Region Laterality Modality Chest Nuclear Medicine Specimen Narrative ROBERTO [employer]inc[employer]DIM[employer] CARDIO - 10/29/2020 16:51 EST ?Perfusion: There was no myocardial perfusion defect at rest and post stress. ?Function: Global LV function is normal. Post-stress ejection fraction is 70 %. ?Stress ECG: Stress ECG was negative. ?Impression: Normal study after pharmacological stress. Performing Organization Address City/State/ZIP Code Phon e Number ROBERTO BRIDGESIS MERGE CARDIO documented in this encounter Visit Diagnoses Diagnosis ARELLANO (dyspnea on exertion) Other dyspnea and respiratory abnormalit y documented in this encounter Administered Medications Inactive Administered Medications - up to 3 most recent administrations Medication Order MAR Action Action Date Dose Rate Site technetium (Tc-99m) Given 10/22/2020 13:00 EST 28.8 millicuries sestamibi injection 24 millicurie 24 millicurie, intravenous, NOW X1, 1 dose, On Sun10/22/20 at 1300, Routine, Imaging Protocol Orders documented in this encounter Orders Medications Ordered That Might Not Have Count Last Ord ered Date First Ordered Date Been Administered technetium (Tc-99m) sestamibi injection 24 1 10/22 millicurie documented in this encounter Care Teams Die Stamper Relationship Specialty Start Date End Date Jj Lopez Jr., DO PCP - General 10/22/20 [address] [place] [address] documented as of this encounter
--- OUTSIDE RECORDS SUMMARY | 2022-03-21 09:35 | XMS_ITS | Encounter Summary ---
:1975 Author Organization [facility] Address [address] [place] [address] Care Team Providers Name Role Phone Pamela Petty MD Primary Care Provider Reason for Referral Sleep Study (Routine) - Closed Specialty Diagnoses / Procedures Referred By Contact Refer red To Contact Sleep Medicine Diagnoses Obstructive sleep apnea [facility] Procedures PAP TITRATION POLYSOMNOGRAM (CPAP/BIPAP TITRATION POLYSOMNOGRAM) CT POLYSOM 6/>YRS SLEEP W/CPAP 4/> ADDL JOSSELINE ADRY Solares Jr., MD [address] Phone: [phone] Referral ID Status Reason Start Date Expiration Date Visits Requ ested Visits Authorized [id number] Closed 11/11/2018 1 1 Reason for Visit Reason Comments Split Night Polysomnogram Sleep Study (Routine/Next Available) - Specialty Report Received Specialty Diagnoses / Procedures Referred By Contact Refer red To Contact Diagnoses ADELAIDE (obstructive sleep apnea) El Sinclair Procedures SPLIT NIGHT POLYSOMNOGRAM (DIAGNOSTIC POLYSOMNOGRAM WITH SPLIT TO CPAP/BIPAP TITRATION) MD Cathy [address] [place] [phone] Referral ID Status Reason Start Date Expiration Date Visits V isits Requested Authorized [id number] Specialty 08/30/2018 1 1 Report Received Encounter Details Date Type Department Care Team Description 10/25/2018 Office Visit [facility] Unknown, Prov MD vandana Obstructive sleep Sleep Program - El Sinclair Jr., MD [address] [place] [address], [address] [place] [address] apnea (Primary Dx) [address] [address] Social History Tobacco Use Types Packs/Day Years [...] - Inhaled Oxygen Concentration - - Weight 181.4 kg (400 lb) 10/25/20182122 EST Height 193 cm (6' 4) 10/25/20182122 EST Body Mass Index 48.69 10/25/2018 2123 EST documented in this encounter Functional Status Functional [...] decisions? documented as of this encounter Discharge Diagnoses Diagnosis G47.33 Obstructive sleep apnea (adult) ( pediatric)-G47.33[ICD-10-CM] documented in this encounter Discharge Disposition Disposition Code Departure Means Destination Auto Discharge documented in this encounter Progress Notes El Sinclair MD - 10/25/20181954 EST Diagnostic Polysomnogram on 10/25/2018 [facility] SLEEP PROGRAM [address] [address] / fax [phone] In Summary: * Severe Obstructive Sleep Apnea (ADELAIDE) associated with frequent oxygen desaturations. AHI 51.8 (using AASM 2012 hypopnea criteria). AHI 15.1 (using AASM 2007 hypopnea criteria). Average O2 Sat: 94%. Cristian O2 sat: 88%. The patient spent a total of 0.1 minutes of sleep time with O2 saturation < 88%. ( Severe Supine-ADELAIDE, Severe Lateral-ADELAIDE). * There was no evidence for hypercapnea/hypoventilation based on transcutaneous CO2 monitoring (supine TcCO2 during wakefulness at beginning of study was 42 mmHg and never exceeded 51 mmHg). * The patient did not meet standard criteria to be started on CPAP by 2 a.m. * The patient slept a total of 394 minutes. Normal sleep efficiency of 88% and mild sleep fragmentation. * Periodic Limb Movements (PLMs) are within normal limits. Plan: * The patient will be contacted by the [facility] regarding the results of theDiagnostic Polysomnogram. * Based on the clinical information provided and the results of this study, PAP therapy is recommended for treatment of obstructive sleep apnea. A PAP Titration can be arranged, if the patient is amenable. Patient may require bilevel PAP based on previous inability to tolerate auto CPAP. Weight loss is recommended. * The patient will be scheduled to be seen at the [facility] by Dr. El Sinclair for an anticipated bilevel PAP compliance visit. Ishmael Keller MD, Sleep Fellow Attending attestation: I personally reviewed the study and the fellow's interpretation and agree with the findings documented. El Sinclair MD 11/11/2018 9:36 This Sleep Study Report (including details) can be viewed under the Procedures Tab in the EMR ([employer])as a scanned file attachment. If the Sleep Study Report cannot be accessed, a copy can be obtained by contacting [facility] at [phone]. documented in this encounter Plan of Treatment Upcoming Encounters Date Type Specialty Care Team Description 05/08/2022 Telemedicine Sleep Medicine El Sinclair Jr., MD [address] [place] [address], [address] [place], [place] [phone] (Wo rk) Scheduled Orders Name Type Priority Associated Diagnoses Order S chedule PAP TITRATION Sleep Center Routine Obstructive sleep Ordered: POLYSOMNOGRAM apnea 11/11/2018 (CPAP/BIPAP TITRATION POLYSOMNOGRAM) documented as of this encounter Procedures Procedure Name Priority Date/Time Associated Diagnosis Comme nts SLEEP STUDY REPORT - 11/11/2018 9:44 EST SCANNED documented in this encounter Visit Diagnoses Diagnosis Obstructive sleep apnea - Primary Obstructive sleep apnea (adult) (pediatr ic) documented in this encounter Orders Procedures Count Last Ordered Date First Ordered Date SLEEP STUDY REPORT - SCANNED 1 11/11/2018 documented in this encounter Care Teams Cosmetics Presser Relationship Specialty Start Date End Date Pamela Petty MD PCP - General 10/07/15 02/08/[address] [place] [address] documented as of this encounter
--- OUTSIDE RECORDS SUMMARY | 2022-03-21 09:35 | XMS_ITS | Encounter Summary ---
:1975 Author Organization [facility] Address [address] [place] [address] Care Team Providers Name Role Phone Jessica Morgan DO, Ernesto Primary Care Provider Reason for Visit Reason Comments Eye Problem Encounter Details Date Type Department Care Team Description 02/26/2021 External Contact [facility] Guzman Wagner, Acute anterior Ophthalmology - Main uveitis (Primary [place] [address] [place] [address] Dx) [address] [place], [place] [address] [place], [place] [phone] [facility] Level 5 [place] [address] Social History Tobacco Use Types Packs/Day Years [...] making decisions? documented as of this encounter Ordered Prescriptions Prescription Sig Dispensed Refills Start Date End Date cyclopentolate (CYCLOGYL) 1 Place 1 Drop into 1 Bottle 0 0 02/26/2021 03/09/2021 % ophthalmic solution the left eye 3 times daily. prednisoLONE (PRED FORTE) 1 1 drop to LEFT eye 1 Bottle 1 02/26/2021 03/02/2021 % ophthalmic suspension every 2 hours while awake -- shake well each time. documented in this encounter Progress Notes Guzman Wagner MD - 02/26/2021 1219 EDT No chief complaint on file. HPI :The patient is a 45 y.o. male Physician HPI: Pt c/o worsening redness and pain in the L eye x 1 W Came to hospital yesterday but left due to long wait Today vision in L eye is drastically worse -- strange fog in L eye R eye seems stable Denies ocular hx except astigmatism no recent flashes -- no new floaters denies recent eye trauma -- denies new eye medicines Physician ROS: Pt denies diabetes -- Pt denies new cough / shortness of breath Right Eye: Left Eye: Visual Aid: Current Rx Age Location: Pain: Quality: Severity: Duration: Timing: Lasts: Context: Modifying factors: Associated Signs & Symptoms: Attestation: ROS Constitutional: ENT/Mouth Cardiovascular: Respiratory: Gastrointestinal: Genitourinary: Musculoskeletal: Integumentary: Neurologic: Psychiatric: Endocrine: Hematologic: Immunologic: Harvest Supervisor: Exposures: Other: Attestation: Allergies include: Keflex [cephalexin] Patient Active Problem List Diagnosis ??? Shoulder dislocation, left, subsequent encounter ??? ADELAIDE (obstructive sleep apnea) No outpatient medications have been marked as taking for the 02/26/21 encounter (External Contact) with Guzman Wagner MD. Past Medical History: Diagnosis Date ??? Jones's palsy ??? Hypertension ??? Sleep apnea Past Surgical History: Procedure Laterality Date ??? EXTERNAL AUDITORY CANAL RECONSTRUCTION ??? TYMPANOSTOMY TUBE PLACEMENT No family history on file. Patient reports that he has been smoking. He started smoking about 2 years ago. He has a 17.00 pack-year smoking history. He has never used smokeless tobacco. He reports current alcohol use. He reportsprevious drug use. Drug: Marijuana. Recent HbA1c: No results found for: HGBA1C Base Eye Exam Visual Acuity (Snellen - Linear) Right Left Dist sc 20/40 - 20/100 Tonometry (Applanation, 13:03) Right Left Pressure 18 19 Pupils Dark Light Right 5 3 Left Unable to perform due to severe photophobia Visual Jeronimo Right Left Full Restrictions Partial outer superior nasal deficiency Extraocular Movement Right Left Full Full Pt reports pain with EOM of L eye Neuro/Psych Oriented x3: Yes Mood/Affect: Normal Dilation Both eyes: Phenylephrine 2.5%, Tropicamide 1% @ 12:26 Slit Lamp and Fundus Exam External Exam Right Left External Normal Normal Slit Lamp Exam Right Left Lids/Lashes Normal Normal Conjunctiva/Sclera Trace Injection 2+ ciliary Injection Cornea Clear Clear Anterior Chamber Deep and quiet 1+ Cell, 2+ Flare, plasmoid aqueous Iris Round and reactive Round and reactive, engorged iris vessels Lens Clear Clear Vitreous Normal Normal Fundus Exam Right Left Disc Hazy view C/D Ratio ~0.25 ~0.25 Macula Normal Normal Vessels Normal Normal Periphery Normal Normal IMPRESSION & PLAN: 1. Acute anterior uveitis, left eye -- worsening symptoms x 1 W as detailed in exam, no prior episodes -- no antecedent trauma -- begin pred acetate OS Q2H while awake, cyclopentolate OS TID -- not a CL-wearer -- quality tester to call for recheck in mid-week I have reviewed the past medical, family, social and surgical history. I have reviewed the meds, allergies, and problem list. I performed my own HPI and reviewed the ROS. I personally completed the exam. The patient was instructed to call our office or go to emergency room if worse vision, worse symptoms, or new/other concerns arise. Guzman Wagner MD I am scribing for Dr. Wagner, while he is performing the service. Guzman Wagner MD documented in this encounter Plan of Treatment Upcoming Encounters Date Type Specialty Care Team Description 05/08/2022 Telemedicine Sleep Medicine El Sinclair Jr., MD 1 [facility], Level 2 [place], [place] [address] (Wo rk) documented as of this encounter Visit Diagnoses Diagnosis Acute anterior uveitis - Primary Acute and subacute iridocyclitis, unspec ified documented in this encounter Discontinued Medications Medication Sig Discontinue Reason Start Date End Date erythromycin (ROMYCIN) 5 1 cm 3 times Therapy completed 02/26/2021 mg/gram (0.5 %) ophthalmic daily. ointment documented as of this encounter Eye Exam Visual Acuity (Snellen - Linear) Right eye Left eye Dist sc 20/40 - 20/100 Tonometry (Applanation, 13:03) Right eye Left eye Pressure 18 19 Pupils Dark Light Right eye 5 3 Left eye Unable to perform due to severe photophobia Visual Jeronimo Right eye Left eye Full Restrictions Partial outer superi or nasal deficiency Extraocular Movement Right eye Left eye Full Full Pt reports pain with EOM of L eye Neuro/Psych Oriented x3: Yes Mood/Affect: Normal Dilation Both eyes: Phenylephrine 2.5%, Tropicami de 1% @ 12:26 External Exam Right eye Left eye External Normal Normal Slit Lamp Exam Right eye Left eye Lids/Lashes Normal Normal Conjunctiva/Sclera Trace Injection 2+ ciliary Injection Cornea Clear Clear Anterior Chamber Deep and quiet 1+ Cell, 2+ Flare, p lasmoid aqueous Iris Round and reactive Round and reactive, engorged iris vessels Lens Clear Clear Vitreous Normal Normal Fundus Exam Right eye Left eye Disc Hazy view C/D Ratio ~0.25 ~0.25 Macula Normal Normal Vessels Normal Normal Periphery Normal Normal Care Teams Plant Technical Specialist Relationship Specialty Start Date End Date Jj Lopez Jr., DO PCP - General 10/22/[address] [place] [address] documented as of this encounter
--- OUTSIDE RECORDS SUMMARY | 2022-03-21 09:35 | XMS_ITS | Encounter Summary ---
:1975 Author Organization [facility] Address [address] [place] [address] Care Team Providers Name Role Phone Jessica Morgan DO, Ernesto Primary Care Provider Reason for Visit Reason Onset Date Comments Appointment Related 12/16/2020 Encounter Details Date Type Department Care Team Description 12/16/2020 Telephone [facility] El Sinclair Appoint ment Related Sleep Program - S Beck Morgan MD [address], [address] [place] [address] [place], [place] [phone] (Wo rk) Social History Tobacco Use [...] this encounter Miscellaneous Notes Telephone Encounter - Susy Shepherd MA - 01/03/2021 1041 EDT Pt called because he was unable to log on to his zoom appointment today with Dr. Sinclair. Pt is requesting a phone appointment. He states zoom never works for him and he isn't able to wait until 04/11/21 for the next available f2f. (Emailed type photography supervisor to see about the possibility of this.) elephone Encounter - Bibi Dixon - 12/16/2020 1531 EDT PT called to schedule FUR results appt. Scheduled for 01/17/21 @ 9am. Meeting ID: [id number] Password: [id number] documented in this encounter Plan of Treatment Upcoming Encounters Date Type Specialty Care Team Description 05/08/2022 Telemedicine Sleep Medicine El Sinclair Jr., MD 1 [facility], Level 2 [place], [place] [address] (Wo rk) documented as of this encounter Visit Diagnoses Not on filedocumented in this encounter Care Teams Transmission Line Engineer Relationship Specialty Start Date End Date Jj Lopez Jr., DO PCP - General 10/22/[address] [place] [address] documented as of this encounter
--- OUTSIDE RECORDS SUMMARY | 2022-03-21 09:35 | XMS_ITS | Encounter Summary ---
:1975 Author Organization [facility] Address [address] [place] [address] Care Team Providers Name Role Phone Unknown, Provider Primary Care Provider Reason for Referral Cardiology (Routine) - Denied Specialty Diagnoses / Procedures Referred By Contact Refer red To Contact Cardiology Diagnoses SOB (shortness of breath) Carolina Aguirre NP [facility] Procedures EXERCISE ECHOCARDIOGRAM STRESS TEST 7 [facility] [place] [phone] Referral ID Status Reason Start Date Expiration Date Visits Requ ested Visits Authorized [id number] Denied 03/11/2020 1 0 Encounter Details Date Type Department Care Team Description 03/11/2020 Transcribe Orders [facility] Natalie Hobbs, SOB (shortness of Cardiology - Main RN breath) (Primary [place] [address] [place] [address] Dx) [address] [place], [place] [id number] Social History Tobacco Use Types Packs/Day [...] Telemedicine Sleep Medicine El Sinclair Jr., MD [address] [place] [address], [address] [place], [place] [phone] (Wo rk) documented as of this encounter Visit Diagnoses Diagnosis SOB (shortness of breath) - Primary Shortness of breath documented in this encounter Orders Stress Echocardiography Count Last Ordered Date First Ordered Date EXERCISE ECHOCARDIOGRAM STRESS TEST 1 03/11/2020 documented in this encounter Care Teams Logger Relationship Specialty Start Date End Date Unknown, Provider, PCP - General 03/05/20 10/21/20 documented as of this encounter
--- OUTSIDE RECORDS SUMMARY | 2022-03-21 09:35 | XMS_ITS | Encounter Summary ---
:1975 Author Organization [facility] Address [address] [place] [address] Care Team Providers Name Role Phone Jessica Morgan DO, Ernesto Primary Care Provider Encounter Details Date Type Department Care Team Description 10/29/2020 Travel Social History Tobacco Use Types Packs/Day [...] Telemedicine Sleep Medicine El Sinclair Jr., MD [address] [place] [address] 2 [place], [place] [phone] (Wo rk) documented as of this encounter Visit Diagnoses Not on filedocumented in this encounter Care Teams Shellfish Sorter Relationship Specialty Start Date End Date Jj Lopez Jr., DO PCP - General 10/22/[address] [place] [id number] documented as of this encounter
--- OUTSIDE RECORDS SUMMARY | 2022-03-21 09:35 | XMS_ITS | Encounter Summary ---
:1975 Author Organization [facility] Address [address] [place] [address] Care Team Providers Name Role Phone Unknown, Provider Primary Care Provider Encounter Details Date Type Department Care Team Description 08/31/2020 Orders Only [facility] Kashif Wiley MD Radiology - Main [address] [facility] [address] [place] [address] [place], [place] [phone] Social History Tobacco Use Types Packs/Day Years [...] Telemedicine Sleep Medicine El Sinclair Jr., MD [address] [place] [address], [address] [place], [place] [phone] (Wo rk) documented as of this encounter Visit Diagnoses Not on filedocumented in this encounter Care Teams Rib Trim Separator Relationship Specialty Start Date End Date Unknown, Provider, PCP - General 03/05/20 10/21/20 documented as of this encounter
--- OUTSIDE RECORDS SUMMARY | 2022-03-21 09:35 | XMS_ITS | Encounter Summary ---
:1975 Author Organization [facility] Address [address] [place] [address] Care Team Providers Name Role Phone Jessica Morgan DO, Ernesto Primary Care Provider Reason for Visit Reason Onset Date Comments Appointment Related 07/01/2021 Encounter Details Date Type Department Care Team Description 07/01/2021 Telephone [facility] Sleep None, Provider A ppointment Related Program - [address] [place] [address] [facility] 2 [place] [address] Social History Tobacco Use Types [...] Telephone Encounter - Susy Shepherd MA - 07/04/2021 0914 EDT Reason pt is schedules with a tech is the Note from 03/16- Patient was very irritated about the amount of time that it took for us to call him to be scheduled for a mask fitting. ?? 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 Called pt to explain. Spoke to pt who canceled apt because he's out of state. He does not wish to reschedule because he doesn't know when he will be home. He will call the office to see if he can get in the next time he's in town. elephone Encounter - Radha Swartz - 07/01/20211811 EDT PAS Message: Patient called to find out what the appointment on 07/05/21 at 8:40 with the sleep techis for. Please call. documented in this encounter Plan of Treatment Upcoming Encounters Date Type Specialty Care Team Description 05/08/2022 Telemedicine Sleep Medicine El Sinclair Jr., MD 1 [facility], [address] [place], [place] [phone] (Wo rk) documented as of this encounter Visit Diagnoses Not on filedocumented in this encounter Care Teams Technology Advisor Relationship Specialty Start Date End Date Jj Lopez Jr., DO PCP - General 10/22/[address] [place] [phone] documented as of this encounter
--- OUTSIDE RECORDS SUMMARY | 2022-03-21 09:35 | XMS_ITS | Encounter Summary ---
:1975 Author Organization [facility] Address [address] [place] [address] Care Team Providers Name Role Phone Unknown, Provider Primary Care Provider Jessica Morgan DO, Ernesto Primary Care Provider Reason for Visit Reason Onset Date Comments Appointment Related 05/27/2020 Encounter Details Date Type Department Care Team Description 05/27/2020 Telephone [facility] El Sinclair Appoint ment Related Sleep Program - S Beck Morgan MD [address], [address] [place] [address] [place], [place] [phone] (Wo rk) Social History Tobacco Use [...] Telephone Encounter - Nhi Rubio RN - 06/11/2020 1132 EDT Left message asking patient to call me at the Sleep Program. Looking in chart see where ordered a titration on 11/11/18, pt had it scheduled and then cancelled it. He has untreated ADELAIDE. Saw Cards on 05/11/20. New titration order in computer placed by Cards on 05/11/20. Routed message to . elephone Encounter - Katrina Friedman - 06/11/2020 1103 EDT Patient called to reschedule missed 06/[address] Sinclair. He was en route to another appointment and forgot about the appt. Rescheduled for 06/29 @ 9 am Needs ZOOM Set up. Telephone Encounter - Bradley Roque MA - 06/09/2020 1107 EDT Called when pt had not logged on to TMD visit by appt time. No answer. LVM with reason for call, appt info, and callback #. elephone Encounter - Bibi Dixon - 06/04/2020 1458 EDT Pt is not currently on PAP therapy, no dwlD info to collect elephone Encounter - Bibi Dixon - 05/27/2020 1034 EDT Called PT to relay 's message to PT Received corespondence from cardiology and would like to schedule tele-health. Scheduled appt for: 06/09/20 11am Meeting ID: [id number] Password: [id number] Skyped asking if we need dwld for sarbjit to Dr. Brunner documented in this encounter Plan of Treatment Upcoming Encounters Date Type Specialty Care Team Description 05/08/2022 Telemedicine Sleep Medicine El Sinclair Jr., MD [address] [place] [address], [address] [place], [place] [phone] (Wo rk) documented as of this encounter Visit Diagnoses Not on filedocumented in this encounter Care Teams Senior Cost Accountant Relationship Specialty Start Date End Date Unknown, Provider, PCP - General 03/05/20 10/21/20 Jj Lopez Jr., PCP - General 10/22/[address] [place] [address] documented as of this encounter
--- OUTSIDE RECORDS SUMMARY | 2022-03-21 09:35 | XMS_ITS | Encounter Summary ---
:1975 Author Organization [facility] Address [address] [place] [address] Care Team Providers Name Role Phone Jessica Morgan DO, Ernesto Primary Care Provider Reason for Visit Reason Comments Eye Problem Encounter Details Date Type Department Care Team Description 03/02/2021 Office Visit [facility] Guzman Wagner MD Ophthalmology - Main [address] [place] [address], [address], [address] 5 [place] [address] [place], [place] [phone] (Wo rk) Social History Tobacco Use Types [...] Sig Dispensed Refills Start Date End Date difluprednate 0.05 % drops 1 drop to the LEFT 1 Bottle 0 0 03/02/2021 eye every 2 hours while awake -- shake well each time. documented in this encounter Progress Notes Guzman Wagner MD - 03/02/2021 1230 EDT Chief Complaint Patient presents with ??? Eye Problem Comments Acute Uveitsis Left eye- Pred Acetate Left Q2H while awake last took at 10:00 and Cylopentolate Left TID. Itchy and dry. Muscles around eye sore. Vision still foggy but improving. No Flashes, No new Floaters. HPI :The patient is a 45 y.o. male Physician HPI: L eye vision is improving but not back to baseline Using steroid every 2 H and dilating drop 3 x daily in L eye No changes to R eye no recent flashes -- no new floaters denies recent eye trauma -- denies new eye medicines Physician ROS: Pt denies diabetes -- Pt denies new cough / shortness of breath Right Eye: NL Left Eye: Blurred Vision, Tired, Itching, Dryness, Floaters Visual Aid: Glasses Current Rx Age Location: Left eye Pain: 0 - No pain Quality: Severity: Moderate Duration: Days Timing: Constant Lasts: Days Context: Uveitis left eye Modifying factors: PF Q2H while awake and Cylo TID all left eye Associated Signs & Symptoms: no eye pain, no flashes or new floaters Attestation: ROS Constitutional: ENT/Mouth Cardiovascular: High Blood Pressure Respiratory: Gastrointestinal: Genitourinary: Musculoskeletal: Integumentary: Neurologic: Psychiatric: Endocrine: NL Hematologic: Immunologic: Drug Allergy Farm Operations Manager: Exposures: Other: Attestation: Allergies include: Keflex [cephalexin] Patient Active Problem List Diagnosis ??? Shoulder dislocation, left, subsequent encounter ??? ADELAIDE (obstructive sleep apnea) Outpatient Medications Marked as Taking for the 03/02/21 encounter (Office Visit) with Guzman Wagner MD Medication Sig ??? cyclopentolate (CYCLOGYL) 1 % ophthalmic solution Place 1 Drop into the left eye 3 times daily. ??? gabapentin (NEURONTIN) 300 mg capsule Take by mouth daily. Has been taking 600 mg BID ??? ibuprofen (MOTRIN) 600 mg tablet Take 600 mg by mouth as needed for Pain. Patient taking 1200 mgBID ??? metoprolol TARtrate (LOPRESSOR) 50 mg tablet Take 50 mg by mouth. ??? [DISCONTINUED] prednisoLONE (PRED FORTE) 1 % ophthalmic suspension 1 drop to LEFT eye every 2 hours while awake -- shake well each time. Past Medical History: Diagnosis Date ??? Jones's palsy ??? Eye infection ??? Hypertension ??? Sleep apnea Past Surgical History: Procedure Laterality Date ??? EXTERNAL AUDITORY CANAL RECONSTRUCTION ??? TYMPANOSTOMY TUBE PLACEMENT History reviewed. No pertinent family history. Patient reports that he has been smoking. He started smoking about 2 years ago. He has a 17.00 pack-year smoking history. He has never used smokeless tobacco. He reports current alcohol use. He reportsprevious drug use. Drug: Marijuana. Recent HbA1c: No results found for: HGBA1C Base Eye Exam Visual Acuity (Snellen - Linear) Right Left Dist cc 20/20 -1 20/40 +1 Dist ph cc NI Tonometry (Applanation, 12:42) Right Left Pressure 17 20 Pupils Dark Light Shape React APD Right 4 2 Round Brisk None Left 4 Pharm Round Visual Jeronimo (Counting fingers) Right Left Full Full Extraocular Movement Right Left Full, Ortho Full, Ortho Neuro/Psych Oriented x3: Yes Mood/Affect: Normal Slit Lamp and Fundus Exam External Exam Right Left External Normal Normal Slit Lamp Exam Right Left Lids/Lashes Normal Normal Conjunctiva/Sclera White and quiet 2+ ciliary Injection Cornea Clear Clear Anterior Chamber Deep and quiet 1+ cell, 2+ flare, plasmoid membrane fallen inferiorly Iris Round and reactive Mid-dilated, prominent iris vessels Lens Clear Clear Vitreous Normal Normal Fundus Exam Right Left Disc Hazy view C/D Ratio ~0.25 ~0.25 Macula Normal Normal Vessels Normal Normal IMPRESSION & PLAN: 1. Acute anterior uveitis, left eye -- first known episode of iritis, pt had worsening symptoms x 1 W prior to initial exam 02/26 -- pt much more comfortable but eye still is prominently inflamed -- D/Wpt, needs increased rx -- plan: 1. D/C pred acetate and begin durezol OS Q2H while awake 2. Cont cyclopentolate OS TID 3. F/U 5-6 D: VA, IOP OU I have reviewed the past medical, family, social and surgical history. I have reviewed the meds, allergies, and problem list. I performed my own HPI and reviewed the ROS. I personally completed the exam. The patient was instructed to call our office or go to emergency room if worse vision, worse symptoms, or new/other concerns arise. Guzman Wagner MD. I am scribing for Dr. Wagner while he performs theservice, Larry Su, COA. documented in this encounter Plan of Treatment Upcoming Encounters Date Type Specialty Care Team Description 05/08/2022 Telemedicine Sleep Medicine El Sinclair Jr., MD [address] [facility], [address] [place], [place] [phone] (Wo rk) documented as of this encounter Visit Diagnoses Diagnosis Acute anterior uveitis - Primary Acute and subacute iridocyclitis, unspec ified documented in this encounter Discontinued Medications Medication Sig Discontinue Reason Start Date End Date prednisoLONE (PRED FORTE) 1 drop to LEFT eye Alternate therapy 02/0803/02/2021 1 % ophthalmic suspension every 2 hours while awake -- shake well each time. documented as of this encounter Eye Exam Visual Acuity (Snellen - Linear) Right eye Left eye Dist cc 20/20 -1 20/40 +1 Dist ph cc NI Tonometry (Applanation, 12:42) Right eye Left eye Pressure 17 20 Pupils Dark Light Shape React APD Right eye 4 2 Round Brisk None Left eye 4 Pharm Round Visual Jeronimo (Counting fingers) Right eye Left eye Full Full Extraocular Movement Right eye Left eye Full, Ortho Full, Ortho Neuro/Psych Oriented x3: Yes Mood/Affect: Normal External Exam Right eye Left eye External Normal Normal Slit Lamp Exam Right eye Left eye Lids/Lashes Normal Normal Conjunctiva/Sclera White and quiet 2+ ciliary Injection Cornea Clear Clear Anterior Chamber Deep and quiet 1+ cell, 2+ flare, p lasmoid membrane fallen inferiorly Iris Round and reactive Mid-dilated, promine nt iris vessels Lens Clear Clear Vitreous Normal Normal Fundus Exam Right eye Left eye Disc Hazy view C/D Ratio ~0.25 ~0.25 Macula Normal Normal Vessels Normal Normal Care Teams Tool Design Drafter Relationship Specialty Start Date End Date Jj Lopez Jr., DO PCP - General 10/22/[address] [place] [phone] documented as of this encounter
--- OUTSIDE RECORDS SUMMARY | 2022-03-21 09:35 | XMS_ITS | Encounter Summary ---
:1975 Author Organization [facility] Address [address] [place] [address] Care Team Providers Name Role Phone Unknown, Provider Primary Care Provider Jessica Morgan DO, Ernesto Primary Care Provider Reason for Visit Reason Onset Date Comments Appointment Related 10/13/2020 Encounter Details Date Type Department Care Team Description 10/13/2020 Telephone [facility] El Sinclair Appoint ment Related Sleep Program - S Beck Morgan MD [address], [address] [place], [place] [address] [place] [address] [phone] (Wo rk) Social History Tobacco Use [...] Notes Telephone Encounter - Alba Yoo - 10/14/2020 0913 EST Pt scheduled for PAP . ENDO elephone Encounter - Alba Yoo - 10/13/2020 1011 EST Called pt to see if . will work for PAP TITRATION 1:1 - ENDO Spoke with pt, would like to have done sooner that . if at all possible. If not he states he 'I have no choice but to wait and will take this date if nothing else can be done documented in this encounter Plan of Treatment Upcoming Encounters Date Type Specialty Care Team Description 05/08/2022 Telemedicine Sleep Medicine El Sinclair Jr., MD 1 [facility], [facility] 2 [place], [place] [phone] (Wo rk) documented as of this encounter Visit Diagnoses Not on filedocumented in this encounter Care Teams Supervisor Maintenance Relationship Specialty Start Date End Date Unknown, Provider, PCP - General 03/05/20 10/21/20 Jj Lopez Jr., PCP - General 10/22/[address] [place] [phone] documented as of this encounter
--- OUTSIDE RECORDS SUMMARY | 2022-03-21 09:35 | XMS_ITS | Encounter Summary ---
:1975 Author Organization [facility] Address [address] [place] [address] Care Team Providers Name Role Phone Jessica Mogran DO, Ernesto Primary Care Provider Reason for Visit Reason Comments Follow-up Encounter Details Date Type Department Care Team Description 03/09/2021 Office Visit [facility] Guzman Wagner MD Ophthalmology - Main [address] [place] [address], [address], [address] [place] [address] [place], [place] [phone] (Wo rk) Social History Tobacco Use [...] documented as of this encounter Progress Notes Guzman Wagner MD - 03/09/2021 0800 EDT Chief Complaint Patient presents with ??? Follow-up Comments Acute uveitis left eye, using durezol q2hr and cyclopentolate TID left eye. Eye feels comfortable overall, some dryness. Did not use dilating drop today as he has an eye exam this afternoon. Having a hard time using durezol q2hrs. Has been using them QID-BID the last 2 days HPI :The patient is a 45 y.o. male Physician HPI: L eye vision is improving, eye feels comfortable No changes to R eye Changed to durezol, uses approx 2-4 x daily although instructed to use every 2 H Ran out of cyclopentolate drop a few days ago no recent flashes -- no new floaters denies recent eye trauma -- denies new eye medicines Physician ROS: Pt denies diabetes -- Pt denies new cough / shortness of breath Right Eye: NL Left Eye: Blurred Vision, Dryness Visual Aid: Glasses Current Rx Age Location: Left eye Pain: 0 - No pain Quality: Severity: Moderate Duration: Days Timing: Constant Lasts: Days Context: Improvement in comfort Modifying factors: Durezol BID-QID left, did not use cyclopentolate today Associated Signs & Symptoms: no eye pain, no flashes or new floaters Attestation: ROS Constitutional: ENT/Mouth Cardiovascular: High Blood Pressure Respiratory: Gastrointestinal: NL Genitourinary: NL Musculoskeletal: NL Integumentary: NL Neurologic: Psychiatric: Endocrine: NL Hematologic: Immunologic: Drug Allergy Airport Operations Specialist: Exposures: Other: Attestation: Allergies include: Keflex [cephalexin] Patient Active Problem List Diagnosis ??? Shoulder dislocation, left, subsequent encounter ??? ADELAIDE (obstructive sleep apnea) Outpatient Medications Marked as Taking for the 03/09/21 encounter (Office Visit) with Guzman Wagner MD Medication Sig ??? cyclopentolate (CYCLOGYL) 1 % ophthalmic solution Place 1 Drop into the left eye 3 times daily. ??? difluprednate 0.05 % drops 1 drop to the LEFT eye every 2 hours while awake -- shake well each time. ??? gabapentin (NEURONTIN) 300 mg capsule Take by mouth daily. Has been taking 600 mg BID ??? ibuprofen (MOTRIN) 600 mg tablet Take 600 mg by mouth as needed for Pain. Patient taking 1200 mgBID ??? metoprolol TARtrate (LOPRESSOR) 50 mg tablet Take 50 mg by mouth 2 times daily. Past Medical History: Diagnosis Date ??? Jones's [...] - Linear) Right Left Dist cc 20/20 20/25 -1 Correction: Glasses Tonometry (Applanation, 8:03) Right Left Pressure 18 20 Extraocular Movement Right Left Full Full Neuro/Psych Oriented x3: Yes Mood/Affect: Normal Slit Lamp and Fundus Exam External Exam Right Left External Normal Normal Slit Lamp Exam Right Left Lids/Lashes Normal Normal Conjunctiva/Sclera White and quiet Mild ciliary Injection Cornea Clear Clear Anterior Chamber Deep and quiet 1+ cell and flare Iris Round and reactive Mid-dilated, prominent iris vessels Lens Clear Clear Vitreous Normal Normal Fundus Exam Right Left C/D Ratio ~0.25 ~0.25 Macula Normal Normal Vessels Normal Normal IMPRESSION & PLAN: 1. Acute anterior uveitis, left eye -- first known episode of iritis, pt had worsening symptoms x 1 W prior to initial exam 02/26 -- last visit changed to durezol Q2H, pt uses only 2-4x daily --> greatly improved but still mild AC rxn -- plan: 1. D/C cyclopentolate (pt seems to have stopped anyway) 2. Cont durezol OS TID 3. Pt needs to move soon to [place] for work, he won't have easy access to medical care there -- pt feels he could stay here 1 more week -- F/U 1 W -- pt to call if needs to leave sooner and will update instructions by phone I have reviewed the past medical, family, social and surgical history. I have reviewed the meds, allergies, and problem list. I performed my own HPI and reviewed the ROS. I personally completed the exam. The patient was instructed to call our office or go to emergency room if worse vision, worse symptoms, or new/other concerns arise. Guzman Wagner MD. documented in this encounter Plan of Treatment Upcoming Encounters Date Type Specialty Care Team Description 05/08/2022 Telemedicine Sleep Medicine El Sinclair Jr., MD [address] [place] [address], [facility] 2 [place], [place] [phone] (Wo rk) documented as of this encounter Visit Diagnoses Diagnosis Acute anterior uveitis - Primary Acute and subacute iridocyclitis, unspec ified documented in this encounter Discontinued Medications Medication Sig Discontinue Reason Start Date End Date cyclopentolate (CYCLOGYL) 1 Place 1 Drop into Therapy completed 03/09/2021 % ophthalmic solution the left eye 3 times daily. documented as of this encounter Eye Exam Visual Acuity (Snellen - Linear) Right eye Left eye Dist cc 20/20 20/25 -1 Correction: Glasses Tonometry (Applanation, 8:03) Right eye Left eye Pressure 18 20 Extraocular Movement Right eye Left eye Full Full Neuro/Psych Oriented x3: Yes Mood/Affect: Normal External Exam Right eye Left eye External Normal Normal Slit Lamp Exam Right eye Left eye Lids/Lashes Normal Normal Conjunctiva/Sclera White and quiet Mild ciliary Injecti on Cornea Clear Clear Anterior Chamber Deep and quiet 1+ cell and flare Iris Round and reactive Mid-dilated, promine nt iris vessels Lens Clear Clear Vitreous Normal Normal Fundus Exam Right eye Left eye C/D Ratio ~0.25 ~0.25 Macula Normal Normal Vessels Normal Normal Care Teams Dining Room Manager Relationship Specialty Start Date End Date Jj Lopez Jr., PCP - General 10/22/[address] [place] [phone] documented as of this encounter
--- OUTSIDE RECORDS SUMMARY | 2022-03-21 09:35 | XMS_ITS | Clinical Summary ---
:1975 Author Organization [facility] Address [address] [place] [address] Care Team Providers Name Role Phone Jessica Morgan Jj Primary Care Provider Allergies Active Allergy Reactions Severity Noted Date Comments Cephalexin Nausea And Vomiting 03/17/2010 Medications Medication Sig Dispensed Refills Start Date End Date Status ibuprofen (MOTRIN) 600 Take 600 mg by 0 Active mg tablet mouth as needed for Pain. Patient taking 1200 mg BID gabapentin (NEURONTIN) Take 600 mg by 0 Active 300 mg capsule mouth daily. Has been taking 600 mg BID metoprolol TARtrate Take 50 mg by 0 Active (LOPRESSOR) 50 mg mouth 2 times tablet daily. difluprednate 0.05 % 1 drop to the 1 Bottle 0 03/02/2021 Active drops LEFT eye every 2 hours while awake -- shake well each time. Additional Information Patient not taking. Reported on 06/27/2021 meloxicam (MOBIC) 7.5 mg tablet Take 7.5 mg by mouth 2 times 0 Active daily. cyclobenzaprine (FLEXERIL) 10 mg tablet Take 10 mg by mouth at 0 Active bedtime. Active Problems Patient Care Coordination Note Formatting of this note might be differe nt from the original. 2020- Medicaid ACO per web/Trace # [id number] -Susy Long 10/13/2020 17:20 Problem Noted Date ADELAIDE (obstructive sleep apnea) 04/22/2018 Shoulder dislocation, left, subsequent encounter 08/05 Immunizations Name Administration Dates Next Due Tdap Vaccine =>7YO IM 05/06/2013 Surgical History Surgery Date Site/Laterality Comments EXTERNAL AUDITORY CANAL RECONSTRUCTION TYMPANOSTOMY TUBE PLACEMENT Medical History Medical History Date Comments Jones's palsy Sleep apnea Hypertension Eye infection Social History Tobacco Use Types Packs/Day Years [...] Assigned at Date Recorded Not on file Last Filed Vital Signs Vital Sign Reading Time Taken Comments Blood Pressure 142/86 02/26/2021 0822 EDT Pulse 130 02/01/2021 1759 EDT Temperature 36.8 ??C (98.2 ??F) 02/26/2021 0822 EDT Respiratory Rate 16 02/26/2021 0822 EDT Oxygen Saturation 100% 02/26/2021 0822 EDT Inhaled Oxygen Concentration - - Weight 198.7 kg (438 lb) 02/26/2021 0822 EDT Height 193 cm (6' 4) 02/26/2021 0822 EDT Body Mass Index 53.32 02/26/2021 0822 EDT Plan of Treatment Upcoming Encounters Date Type Specialty Care Team Description 05/08/2022 Telemedicine Sleep Medicine El Sinclair Jr., MD [address] [place] [address], Level 2 [place], [place] [address] (Wo rk) Health Maintenance Due Date Last Done Comments COVID-19 Vaccine (#1) 1975 Pneumococcal Immunization (1 - PCV) 1983 Hepatitis C Screen Completed 01/22/2013 Insurance Payer Benefit Plan / Subscriber ID Effective Phone Address T ype Group Dates [place] [id number] 2021-Prese [address] [place] [address] Guarantor Name Account Type Relation to Date of Phone Bill ing Patient Address Brian Ko Personal/Family Self [address] [place] [address] Brian Ko Personal/Family Self [address] ([address]) [place] [address] Brian Ko Personal/Family Self [address] ([address]) [place] [address] Brian Ko Personal/Family Self [address] ([address]) [place] [address] Brian Ko Personal/Family Self [address] ([address]) [place] [address] Brian Ko Personal/Family Self [address] ([address]) [place] [address] Brian Ko Personal/Family Self [address] (Home) [place] [address] Brian Ko Personal/Family Self [address] ([address]) [place] [address] Care Teams Analytical Chemist Relationship Specialty Start Date End Date Jj Lopez Jr., DO PCP - General 10/22/20 [place] [address]
--- OUTSIDE RECORDS SUMMARY | 2022-03-21 09:35 | XMS_ITS | Encounter Summary ---
:1975 Author Organization [facility] Address [address] [place] [address] Care Team Providers Name Role Phone Jessica Morgan DO, Ernesto Primary Care Provider Reason for Visit Reason Onset Date Comments Appointment Related 02/25/2021 Encounter Details Date Type Department Care Team Description 02/25/2021 Telephone [facility] El Sinclair Appoint ment Related Sleep Program - S Beck Morgan MD [address], Level 2 [place] [address] [place], [place] [phone] (Wo rk) Social History Tobacco Use [...] Notes Telephone Encounter - Bibi Dixon - 02/25/2021 1043 EDT Emailed Zoom invite for 03/08/21 @ 11:30. Meeting ID: [id number] Password: [id number] documented in this encounter Plan of Treatment Upcoming Encounters Date Type Specialty Care Team Description 05/08/2022 Telemedicine Sleep Medicine El Sinclair Jr., MD [address] [place] [address], [facility] 2 [place] [address] (Wo rk) documented as of this encounter Visit Diagnoses Not on filedocumented in this encounter Care Teams Chick Room Supervisor Relationship Specialty Start Date End Date Jj Lopez Jr., DO PCP - General 10/22/20 [address] [place] [address] documented as of this encounter
--- OUTSIDE RECORDS SUMMARY | 2022-03-21 09:36 | XMS_ITS | Encounter Summary ---
:1975 Author Organization [facility] Address [address] [place] [address] Care Team Providers Name Role Phone Pamela Petty MD Primary Care Provider Reason for Referral Sleep Study (Routine/Next Available) - Specialty Report Received Specialty Diagnoses / Procedures Referred By Contact Refer red To Contact Diagnoses ADELAIDE (obstructive sleep apnea) [place]ina Sánchez Procedures SPLIT NIGHT POLYSOMNOGRAM (DIAGNOSTIC POLYSOMNOGRAM WITH SPLIT TO CPAP/BIPAP TITRATION) MD Cathy [address] [place] [address] 2 [place] [address] Referral ID Status Reason Start Date Expiration Date Visits V isits Requested Authorized [id number] Specialty 08/30/2018 1 1 Report Received Reason for Visit Reason Comments Tech Appointment Encounter Details Date Type Department Care Team Description 08/20/2018 Office Visit [facility] Geraldo Sánchez Jr., MD [address] [place] [address] 2 [place] [address] ADELAIDE (obstructive Sleep Program - S Sleep, Tech [address] [place] [address] sleep apnea) (Primary [place] Dx) [address] [address] Social History Tobacco Use Types Packs/Day [...] documented as of this encounter Progress Notes [place] Sánchez MD - 08/20/2018 1330 EST I spoke with patient today regarding his inability to adjust to positive airway pressure therapy in the form of auto CPAP. A remote review of the patient's flow generator revealed that he has not currently utilizing device. 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 According to the patient his primary difficulty adjusting to positive airway pressure therapy has been exhaling against delivered pressure. He understands the risks of untreated sleep apnea as these have been discussed during previous office visit. Options were discussed and the patient has elected to proceed with in laboratory sleep testing. Polysomnography with CPAP to be applied in a split-night fashion was recommended. Once patient experiences difficulty exhaling against CPAP, bilevel Pap will be applied and titrated. The patient will sleep inclined at approximately 35 degrees in a recliner (this is how he sleeps at home). TcCO2 will be monitored for possible hypoventilation due to morbid obesity. Patient understands that after the study he will be contacted with the results and an order for a flow generator sent to the [employer] company of his choice. He will maintain his currently scheduled follow-up visit which will serve as a compliance visit. Eloy Castellon - 08/20/2018 1330 EST [facility] Sleep Program TECHNOLOGIST ANALYSIS SHEET 08/20/2018 Patient's Current Sleep Provider: [place]ina Sánchez MD Visit Type: [id number] Reason for Visit: Compliance download Current Mask: Unknown (Pt did not bring equipment) Recommended or current pressure: 7cm-13cm H2O Type of Treatment: AUTO CPAP Patient's DME: TMS Problem that brings patient to the clinic: Compliance check Patient is seen today to enhance treatment of the following diagnosis: Obstructive Sleep Apnea Patient Education during the visit covered the following topics: Techniques for successful PAP treatment and Compare different PAP therapy modalities Method: Verbal Taught to: Patient Barriers: None Outcomes: independent and verbalized understanding Pressures tried: N/A Visit Summary: Pt reported having great interest in discussing an in-lab PSG and/or a trial of BiPAP. I explained that this should be discussed with an MD. Pt expressed understanding. Machine Download today: nights used, Median usage: 3 hours, 41 minutes per night, % Used Days >= 4 hrs: 17 % Mean P: 9.9, Optimal P: 12.3, AHI: 6.9, Mask leak: 20.0 Recommendations: Meet with MD to discuss in-lab PSG and/or BiPAP trial Total time spent with patient: 30 minutes Follow-up Plans: MD follow-up [place] Billing Sheet filled? No A DME prescription was not needed. I was supervised by Clara Ackerman MD who was in the Sleep Program and immediately available for the entire time the service was provided. Eloy Ellis I was present in clinic and available if needed. Clara Ackerman MD 08/20/2018 14:15 documented in this encounter Miscellaneous Notes Addendum Note - Paulina Sánchez MD - 08/20/2018 1330 EST Addended by: PAULINA SÁNCHEZ on: 08/30/2018 12:30 Modules accepted: Orders documented in this encounter Plan of Treatment Upcoming Encounters Date Type Specialty Care Team Description 05/08/2022 Telemedicine Sleep Medicine Paulina Sánchez Jr., MD [address] [facility] 2 [place], [place] [address] (Wo rk) Scheduled Orders Name Type Priority Associated Diagnoses Order S [facility] NIGHT Sleep Center Routine ADELAIDE (obstructive Ordered: POLYSOMNOGRAM sleep apnea) 08/30/2018 (DIAGNOSTIC POLYSOMNOGRAM WITH SPLIT TO CPAP/BIPAP TITRATION) documented as of this encounter Visit Diagnoses Diagnosis ADELAIDE (obstructive sleep apnea) - Primary Obstructive sleep apnea (adult) (pediatr ic) documented in this encounter Care Teams Planning Consultant Relationship Specialty Start Date End Date Pamela Petty MD PCP - General 10/07/15 02/08/20 7 [place] [address] documented as of this encounter
--- OUTSIDE RECORDS SUMMARY | 2022-03-21 09:36 | XMS_ITS | Encounter Summary ---
:1975 Author Organization [facility] Address [address] [place] [address] Care Team Providers Name Role Phone Pamela Petty MD Primary Care Provider Reason for Referral Radiology Services (Routine/Next Available) - Closed Specialty Diagnoses / Procedures Referred By Contact Refer red To Contact Diagnoses Left shoulder pain, unspecified chronicity Carolina Hedrick PA-C Procedures [facility] US SHOULDER [address] [place] [address] Referral ID Status Reason Start Date Expiration Date Visits Requ ested Visits Authorized [id number] Closed 08/27/2017 1 1 Encounter Details Date Type Department Care Team Description 08/27/2017 Orders Only [facility] Carolina Hedrick Lef t shoulder pain, Sports Medicine PA-C unspecified chronicity Program - [place]air[place] (Primary Dx) [address] [place] [address] Social History Tobacco Use Types Packs/Day Years Used Date Current Every Day Smoker 0.25 17 Smokeless Tobacco: Never Used Alcohol Use Standard [...] Sleep Medicine El Sinclair Jr., MD 1 [facility], Level [address] [place], [place] [address] (Wo rk) Pending Results Name Type Priority Associated Diagnoses Date/Ti me MSK US SHOULDER Imaging Routine Left shoulder pain, unspe cified 08/27/2017 8:55 EST chronicity documented as of this encounter Visit Diagnoses Diagnosis Left shoulder pain, unspecified chronici ty - Primary documented in this encounter Care Teams Lead Software Developer Relationship Specialty Start Date End Date Pamela Petty MD PCP - General 10/07/15 02/08/20 7 [place] [address] documented as of this encounter
--- OUTSIDE RECORDS SUMMARY | 2022-03-21 09:36 | XMS_ITS | Encounter Summary ---
:1975 Author Organization [facility] Address [address] [place] [address] Care Team Providers Name Role Phone Pamela Petty MD Primary Care Provider Reason for Visit Reason Comments Cardiac Testing Encounter Details Date Type Department Care Team Description 02/01/2017 [facility] Pamela Petty MD [address] [place], [place] [phone] Cardiology - [address] [place], [place] [address] Social History Tobacco Use Types Packs/Day Years [...] as of this encounter Discharge Diagnoses Diagnosis R00.1 Bradycardia, unspecified-R00.1[ICD -10-CM] documented in this encounter Discharge Disposition Disposition Code Departure Means Destination Auto Discharge documented in this encounter Plan of Treatment Upcoming Encounters Date Type Specialty Care Team Description 05/08/2022 Telemedicine Sleep Medicine El Sinclair Jr., MD 1 [facility], Level 2 [place], [place] [phone] (Wo rk) documented as of this encounter Visit Diagnoses Not on filedocumented in this encounter Care Teams Custom Shop Worker Relationship Specialty Start Date End Date Pamela Petty MD PCP - General 10/07/15 02/08/20 [address] [place] [address] documented as of this encounter
--- OUTSIDE RECORDS SUMMARY | 2022-03-21 09:36 | XMS_ITS | Encounter Summary ---
:1975 Author Organization [facility] Address [address] [place] [address] Care Team Providers Name Role Phone Pamela Petty MD Primary Care Provider Reason for Referral Sleep Study (Routine/Next Available) - Closed Specialty Diagnoses / Procedures Referred By Contact Refer red To Contact Diagnoses ADELAIDE (obstructive sleep apnea) El Sicnlair Procedures HOME SLEEP APNEA TEST (HSAT) MD Cathy 1 [facility] 2 [place] [address] Referral ID Status Reason Start Date Expiration Date Visits Requ ested Visits Authorized [id number] Closed 04/11/2018 1 1 Reason for Visit Reason Comments New Patient Visit Consult (Routine) - Authorization Not Required Specialty Diagnoses / Procedures Referred By Contact Refer red To Contact Sleep Medicine Diagnoses Other dyspnea and respiratory abnormality Pamela Petty MD [facility] [address] [place] [address] [place] 2 [place] [address] Phone: Fax: Referral ID Status Reason Start Expiration Visits Visits Date Date Requested Authorized [id number] Authorization Not 1 1 Required Encounter Details Date Type Department Care Team Description 04/11/2018 Office Visit [facility] El Sinclair ADELAIDE (ob structive Sleep Program - Mika Solares Jr., MD sleep apnea) (Primary [place] 1 [facility] Dx) 1 [facility] 2 [facility] 2 [place] [phone] (Wo rk) Social History Tobacco Use Types [...] Sign Reading Time Taken Comments Blood Pressure 124/86 04/11/2018 1050 EDT Pulse 97 04/11/2018 1050 EDT Temperature - - Respiratory Rate 16 04/11/2018 1050 EDT Oxygen Saturation 100% 04/11/2018 1050 EDT Inhaled Oxygen Concentration - - Weight 170.6 kg (376 lb) 04/11/2018 1050 EDT Height 193 cm (6' 4) 04/11/2018 1050 EDT Body Mass Index 45.77 04/11/2018 1050 EDT documented in this encounter Functional Status [...] of this encounter Progress Notes El Sinclair MD - 04/11/2018 1100 EDT Subjective: Patient ID: Brian Ko is an 42 y.o. male seen in consultation regarding possible obstructive sleep apnea. 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 The patient does admit to loud snoring. He states that he has snored for approximately 30 years. This dates back to his childhood. He does have an overbite. Snoring has worsened concurrent with weight gain. It is at times loud in severity. Associated symptoms include relatively infrequent awakenings with heartburn. The patient is morbidly obese with a BMI of 45.8 kg/m??. Time in bed is usually between 9 and 10 PM with a subjective sleep onset latency of less than 15 minutes. Patient estimates his wakefulness after sleep onset to consist of 0-1 awakenings of brief duration. Rise time is 5:56 AM. The patient often feels unrefreshed upon awakening although he stated thatif his sleep was not disturbed by his child or other factors that he would feel refreshed. His Moffett Sleepiness Scale score today was 8.0. The patient sleeps in his recliner at home, essentially fully reclined. This is secondary to physical discomfort when sleeping in a bed. The patient denies the use of alcohol. He smokes 1 pack of cigarettes per day. Caffeine intake consists of 3 cups of coffee per day. The patient denies cataplexy, sleep paralysis, or hypnagogic hallucinations. Review of Systems Constitutional: Negative for chills and fever. Respiratory: Negative for cough and shortness of breath. Cardiovascular: Negative for chest pain and palpitations. Gastrointestinal: Positive for heartburn (occasional awakening with heartburn). Negative for nausea and vomiting. Psychiatric/Behavioral: Negative for depression and suicidal ideas. Objective: Physical Exam Constitutional: He is oriented to person, place, and time. He appears well-developed. HENT: Mouth/Throat: Mucous membranes are moist. Oropharynx is clear. Eyes: EOM are normal. Pupils are equal, round, and reactive to light. Cardiovascular: Normal rate and regular rhythm. Exam reveals no gallop and no friction rub. No murmur heard. Pulmonary/Chest: Effort normal and breath sounds normal. He has no wheezes. He has no rhonchi. Musculoskeletal: He exhibits no edema. Neurological: He is alert and oriented to person, place, and time. He has normal reflexes. No cranial nerve deficit. Coordination normal. Psychiatric: He has a normal mood and affect. His behavior is normal. Assessment: The patient is referred for evaluation of suspected obstructive sleep apnea syndrome in advance of seeking DOT clearance. He is obese, has a dental overbite, and reports loud snoring. A home sleep testwill be ordered and followed by in-home auto adjusting positive airway pressure titration if indicated. Recommendations: 1. Home sleep test scheduled (patient aware that in laboratory study will be recommended in the event the home sleep test is negative). 2. Auto adjust CPAP titration if aforementioned study is positive for sleep disordered breathing (equipment to be provided by [employer] company of patient choice). 3. Advised against drowsy driving. 4. Encounter and future download may be provided to the patient to take to his DOT physician. 5. Follow-up in clinic in 2-3 months. documented in this encounter Plan of Treatment Upcoming Encounters Date Type Specialty Care Team Description 05/08/2022 Telemedicine Sleep Medicine El Sinclair Jr., MD [address] [place] [address] 2 [place], [place] [phone] (Wo rk) Scheduled Orders Name Type Priority Associated Diagnoses Order S chedule HOME SLEEP APNEA Sleep Center Routine ADELAIDE (obstructive sleep O rdered: 04/11/2018 TEST (HSAT) apnea) documented as of this encounter Visit Diagnoses Diagnosis ADELAIDE (obstructive sleep apnea) - Primary Obstructive sleep apnea (adult) (pediatr ic) documented in this encounter Discontinued Medications Medication Sig Discontinue Reason Start Date End Date gabapentin (NEURONTIN) Take 300 mg by Patient Stopped Taking 04/11/2018 100 mg capsule mouth daily. documented as of this encounter Historical Medications This list may reflect changes made after this encounter. Medication Sig Dispensed Refills Start Date End Date ibuprofen (MOTRIN) 600 mg Take 600 mg by mouth 0 tablet as needed for Pain. Patient taking 1200 mg BID added in this encounter Care Teams Roofing Contractor Relationship Specialty Start Date End Date Pamela Petty MD PCP - General 10/07/15 02/08/20 7 [place] [address] documented as of this encounter
--- OUTSIDE RECORDS SUMMARY | 2022-03-21 09:36 | XMS_ITS | Encounter Summary ---
:[address] [facility] Address [address] [place] [address] Care Team Providers Name Role Phone Galo Bello MD Primary Care Provider Reason for Visit Reason Onset Date Comments Medications Refill 05/21/2015 CIPRODEX Encounter Details Date Type Department Care Team Description 05/21/2015 Telephone [facility] Nkechi Major, dications Refill ENT- [facility] (CIPRODEX) [id number] [place] [address] [facility] 4 [place] [address] (Wo rk) Social History Tobacco Use Types Packs/Day Years Used Date Current Every Day Smoker 1 17 Smokeless Tobacco: Never Used Alcohol Use [...] on file documented as of this encounter Miscellaneous Notes Telephone Encounter - Seda Pitts RN - 05/21/[address] Major - No need to use drops again until 1 week prior to next appointment that is scheduledfor 06/18/15. Attempted to call pt to give him this message but listed number is disconnected. elephone Encounter - Na Corbin. - 05/21/2015 1242 EDT Patient called to cancel today's appt as he is not feeling well. Rescheduled to 10.9. Wants to know if we can send in a refill for Ciprodex in the mean time. Please advise. documented in this encounter Plan of Treatment Upcoming Encounters Date Type Specialty Care Team Description 05/08/2022 Telemedicine Sleep Medicine El Sinclair Jr., MD [address] [place] [address], Level 2 [place], [place] [address] (Wo rk) documented as of this encounter Visit Diagnoses Not on filedocumented in this encounter Care Teams Home Health Care Provider Relationship Specialty Start Date End Date Galo Bello MD PCP - General 05/06/13 10/06/[address] [place] [address] [address] [place] [address] documented as of this encounter
--- OUTSIDE RECORDS SUMMARY | 2022-03-21 09:36 | XMS_ITS | Encounter Summary ---
:1975 Author Organization [facility] Address [address] [place] [address] Care Team Providers Name Role Phone Pamela Petty MD Primary Care Provider Reason for Visit Reason Onset Date Comments Other 04/23/2018 Encounter Details Date Type Department Care Team Description 04/23/2018 Telephone [facility] Nhi Webber RN Other Program - [place] 111 [facility] 1 [place], [place] [phone] [place] [address] 2 [place] [address] Social History Tobacco Use Types Packs/Day Years [...] documented as of this encounter Miscellaneous Notes Addendum Note - El Sánchez MD - 05/01/2018 1018 EDT Addended by: EL SÁNCHEZ on: 05/01/2018 10:18 Modules accepted: Orders elephone Encounter - Debora Ballesteros - 04/30/2018 1330 EDT PT called [facility] requesting machine/supplies. Magda from [employer] called us looking PAP order. Nothing in system yet. elephone Encounter - Nhi Rubio RN - 04/23/2018 1213 EDT Spoke with pt and let him know reviewed his recent sleep study and it showed moderate ADELAIDE.For the purpose of expediting titration he wanted to have PAP titration performed with flow generator as provided through [employer]. Pt will use [employer]. Message sent to with update. elephone Encounter - Nhi Rubio RN - 04/23/2018 1156 EDT Left message asking patient to call me at the Sleep Program. elephone Encounter - Estrella Connor - 04/23/2018 1152 EDT PT returned you call. Please call him back. elephone Encounter - Nhi Rubio RN - 04/23/2018 0931 EDT Left message asking patient to call me at the Sleep Program. documented in this encounter Plan of Treatment Upcoming Encounters Date Type Specialty Care Team Description 05/08/2022 Telemedicine Sleep Medicine El Sánchez Jr., MD 1 [facility], Level 2 [place], [place] [phone] (Wo rk) documented as of this encounter Visit Diagnoses Diagnosis ADELAIDE (obstructive sleep apnea) - Primary Obstructive sleep apnea (adult) (pediatr ic) documented in this encounter Orders Equipment Count Last Ordered Date First Ordered Date CPAP/BIPAP MACHINE ORDER 1 05/01/2018 documented in this encounter Care Teams Volunteer Services Coordinator Relationship Specialty Start Date End Date Pamela Petty MD PCP - General 10/07/15 02/08/20 7 [place] [address] documented as of this encounter
--- OUTSIDE RECORDS SUMMARY | 2022-03-21 09:36 | XMS_ITS | Encounter Summary ---
:1975 Author Organization [facility] Address [address] [place] [address] Care Team Providers Name Role Phone Pamela Petty MD Primary Care Provider Reason for Visit Reason Comments Home Sleep Apnea Test, Return Encounter Details Date Type Department Care Team Description 04/15/2018 Procedure visit [facility] Geraldo Sinclair Jr., MD [address] [place] [address], [address] [place] [address] Sleep Program - S Sleep, Tech [address] [place] [address] [place] [address] Social History Tobacco Use Types [...] documented as of this encounter Progress Notes Jhonny Foret - 04/15/2018 0830 EDT Patient returned the HSAT unit today at their Building Construction Inspector Appointment. Height, weight, and medications were reviewed with the patient and updated. The Morning Rise Time Questionnaire was reviewed with the patient and inputted into PRISM. The HSAT unit was downloaded and the study reviewed in its entirety. The Home Sleep ApneaTest was successful and had >4 hours of interpretable data that will be reviewed by a Sleep Physician. The results of this test will be attached to the HSAT set-up encounter. documented in this encounter Plan of Treatment Upcoming Encounters Date Type Specialty Care Team Description 05/08/2022 Telemedicine Sleep Medicine El Sinclair Jr., MD [address] [place] [address], [address] [place] [phone] (Wo rk) documented as of this encounter Visit Diagnoses Not on filedocumented in this encounter Care Teams Primary Health Care Nurse Relationship Specialty Start Date End Date Pamela Petty MD PCP - General 10/07/15 02/08/20 [address] [place] [address] documented as of this encounter
--- OUTSIDE RECORDS SUMMARY | 2022-03-21 09:36 | XMS_ITS | Encounter Summary ---
:1975 Author Organization [facility] Address [address] [place] [address] Care Team Providers Name Role Phone Pamela Petty MD Primary Care Provider Encounter Details Date Type Department Care Team Description 12/12/2016 Hospital Encounter [facility] - Audelia Gonzales MD [address] [address] [address], [place] [phone] (Wo rk) Social History Tobacco Use Types [...] as of this encounter Discharge Diagnoses Diagnosis R42 Dizziness and giddiness-R42[ICD-10-C M] documented in this encounter Discharge Disposition Disposition Code Departure Means Destination Home or Self Care documented in this encounter Plan of Treatment Upcoming Encounters Date Type Specialty Care Team Description 05/08/2022 Telemedicine Sleep Medicine El Sinclair Jr., MD 1 [facility] 2 [place], [place] [phone] (Wo rk) documented as of this encounter Procedures Procedure Name Priority Date/Time Associated Diagnosis Comme nts PROCEDURE REPORTS - 12/18/2016 11:11 EDT SCANNED documented in this encounter Visit Diagnoses Not on filedocumented in this encounter Orders Procedures Count Last Ordered Date First Ordered Date PROCEDURE REPORTS - SCANNED 1 12/18/2016 documented in this encounter Care Teams Radarman Relationship Specialty Start Date End Date Pamela Petty MD PCP - General 10/07/15 02/08/[address] [place] [address] documented as of this encounter
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
--- OUTSIDE RECORDS SUMMARY | 2022-03-21 09:36 | XMS_ITS | Encounter Summary ---
:1975 Author Organization [facility] Address [address] [place] [address] Care Team Providers Name Role Phone Galo Bello MD Primary Care Provider Reason for Visit Reason Onset Date Comments Appointment Related 08/12/2015 Encounter Details Date Type Department Care Team Description 08/12/[address] [facility] Medical Center Therapy, Physical Appo intment Related Rehabilitation Therapy - Medical Office [id number] [place] [address] Social History Tobacco Use Types Packs/Day [...] a physical, mental, or emotional condition, No 07/28/2015 does this person have difficulty doing errands alone such as visiting a doctor's office or shopping? Cognitive Status Response Date of Assessment Because of a physical, mental, or emotional condition, No 07/28/2015 does this person have serious difficulty concentrating, remembering, or making decisions? documented as of this encounter Miscellaneous Notes Telephone Encounter - Patti Silva - 08/12/2015 0144 EST Ambulatory consult/referral received for Physical Therapy for a diagnosis of lumbago. Patient to call to schedule own appointment. Patti Silva 08/12/2015 15:15 documented in this encounter Plan of Treatment Upcoming Encounters Date Type Specialty Care Team Description 05/08/2022 Telemedicine Sleep Medicine El Sinclair Jr., MD 1 [facility], Level [address] [place], [place] [phone] (Wo rk) documented as of this encounter Visit Diagnoses Not on filedocumented in this encounter Care Teams Film Inspector Relationship Specialty Start Date End Date Galo Bello MD PCP - General 05/06/13 10/06/[address] [place] [phone] documented as of this encounter
--- OUTSIDE RECORDS SUMMARY | 2022-03-21 09:36 | XMS_ITS | Encounter Summary ---
:1975 Author Organization [facility] Address [address] [place] [address] Care Team Providers Name Role Phone Galo Bello MD Primary Care Provider Reason for Visit Reason Comments Follow-up follow up for cyst Encounter Details Date Type Department Care Team Description 08/25/2015 Office Visit [facility] Bradley Simons sebaceous General Surgery - MD Rj cyst (Primary Dx) [address] [address] [place], [place] [phone] Social History Tobacco Use Types Packs/Day Years [...] documented as of this encounter Progress Notes Bradley Simons MD - 08/25/2015 1559 EST Posterior auricular cyst resolved and back sebacceous cyst Resolved Schedule formal excision of back sebacceous cyst documented in this encounter Plan of Treatment Upcoming Encounters Date Type Specialty Care Team Description 05/08/2022 Telemedicine Sleep Medicine El Sinclair Jr., MD 1 [facility] Level [address] [place], [place] [phone] (Wo rk) documented as of this encounter Visit Diagnoses Diagnosis Ruptured sebaceous cyst - Primary Sebaceous cyst documented in this encounter Care Teams Underground Production Foreperson Relationship Specialty Start Date End Date Galo Bello MD PCP - General 05/06/13 10/06/15 [address] [facility] [address] [place] [address] documented as of this encounter
--- OUTSIDE RECORDS SUMMARY | 2022-03-21 09:36 | XMS_ITS | Encounter Summary ---
:1975 Author Organization [facility] Address [address] [place] [address] Care Team Providers Name Role Phone Pamela Petty MD Primary Care Provider Reason for Visit Reason Onset Date Comments Appointment Related 10/23/2018 Encounter Details Date Type Department Care Team Description 10/23/2018 Telephone [facility] Sleep Program - Appointment Related [address] [address] [facility] [address] [facility] 2 [place] [address] Social History Tobacco Use Types [...] this encounter Miscellaneous Notes Telephone Encounter - Mali Cash - 10/24/2018 0957 EST Spoke with patient, explained PA received from [facility] and it is authorized to go. Rescheduled patient right back into 10/25 1954 at [facility]. elephone Encounter - Mali Cash - 10/23/2018 1631 EST Patient called back, said he updated his info and would like to be rescheduled rodger on a Sunday. elephone Encounter - Mali Cash - 10/23/2018 1625 EST Calling patient back; spoke with patient and he confirmed does have insurance, but doesn't have a card that he knows of. Transferred patient to Registration to update his info. Confirmed sleep study is cancelled for Sunday and we'll do our best to get it rescheduled once PA is complete. Telephone Encounter - Gina Hedrick - 10/23/2018 1610 EST PT called and was wondering why his appointment got cancelled. Hot Patcher explained that we needed PA. PT confirmed that his insurance was either Medicare or Medicaid (state funded, I have two kids and wehave ). Pt wanted more information. Please call back. elephone Encounter - Mali Cash - 10/23/2018 1449 EST Calling patient to confirm his insurance and explain we need to cancel Sleep Study for 10/25 as we'llneed time to get PA. LMAM for patient to call back. When calls back, will need to confirm insurance and explain we'll need to get PA and then call back to reschedule study. documented in this encounter Plan of Treatment Upcoming Encounters Date Type Specialty Care Team Description 05/08/2022 Telemedicine Sleep Medicine El Sinclair Jr., MD 1 [facility], Level [address] [place], [place] [phone] (Wo rk) documented as of this encounter Visit Diagnoses Not on filedocumented in this encounter Care Teams Retail Planning Manager Relationship Specialty Start Date End Date Pamela Petty MD PCP - General 10/07/15 02/08/20 [address] [place] [address] documented as of this encounter
--- OUTSIDE RECORDS SUMMARY | 2022-03-21 09:36 | XMS_ITS | Encounter Summary ---
:1975 Author Organization [facility] Address [address] [place] [address] Care Team Providers Name Role Phone Pamela Petty MD Primary Care Provider Reason for Visit Reason Onset Date Comments DME 07/29/2018 Encounter Details Date Type Department Care Team Description 07/29/2018 Telephone [facility] Nhi Webber RN DME Program - [address] [facility] 1 [place], [place] [phone] [place] [address] 2 [place] [address] Social History Tobacco Use Types Packs/Day Years [...] Telephone Encounter - Nhi Rubio RN - 08/07/2018 1007 EST Sent MyChart update to pt w/info from . ddendum Note - El Sánchez MD - 08/07/2018 1002 EST Addended by: EL SÁNCHEZ on: 08/07/2018 10:02 Modules accepted: Orders elephone Encounter - El Sánchez MD - 08/07/2018 0955 EST Patient had called complaining of difficulty exhaling against the prescribed auto CPAP pressure range of 8-16 cm water. A remote review of flow generator data was conducted and reflected poor compliance over the previousweek. However, a flow generator download from the previous night (August 06, 2018) yielded 6 hours36 minutes use, median pressure 9.8 cm water, 95th percentile pressure 11.6 cm water, maximum pressure 12.1 cm water, median leak only 1.2 L/min, 95th percentile leak 21.6 L/min, and AHI 2.7. Subsequent to the aforementioned, an order will be sent to the patient's DME company to adjust pressure range to 7-13 cm water while maintaining an EPR of 3. If patient is unable to tolerate this change, consideration may be given to performing bilevel positive airway pressure titration. elephone Encounter - Nhi Rubio RN - 07/29/2018 0915 EST Spoke w/pt. He is having problems exhaling against the high CPAP pressures; not tolerating CPAP. He went to [facility] and they mentioned a trial of VPAP. Let him know I will sent the message to andwe will get back to with 's suggestions. Pt verbalized understanding, no barrier to learning. Routed to . documented in this encounter Plan of Treatment Upcoming Encounters Date Type Specialty Care Team Description 05/08/2022 Telemedicine Sleep Medicine El Sánchez Jr., MD 1 [facility], Level [address] [place], [place] [phone] (Wo rk) documented as of this encounter Visit Diagnoses Diagnosis ADELAIDE (obstructive sleep apnea) - Primary Obstructive sleep apnea (adult) (pediatr ic) documented in this encounter Orders Equipment Count Last Ordered Date First Ordered Date CPAP/BIPAP GENERAL ORDER 1 08/07/2018 documented in this encounter Care Teams Link Fabric Machine Operator Relationship Specialty Start Date End Date Pamlea Petty MD PCP - General 10/07/15 02/08/[address] [place] [address] documented as of this encounter
--- OUTSIDE RECORDS SUMMARY | 2022-03-21 09:36 | XMS_ITS | Encounter Summary ---
:1975 Author Organization [facility] Address [address] [place] [address] Care Team Providers Name Role Phone Pamela Petty MD Primary Care Provider Reason for Visit Reason Comments Abdominal Pain pt to ed c/o ruq pain, and g en. malaise x 1 year. multiple other sxs, dizzy, stool changes. NAD. Encounter Details Date Type Department Care Team Description 11/01/2017 Emergency [facility] Francisco Chanel MD [address] [facility], Level 1 [place] [address] Right upper quadrant Emergency Department Emergency, MD Fabio abdominal pain - [facility] (Primary Dx) [address] [place] [address] Social History Tobacco Use Types [...] Sign Reading Time Taken Comments Blood Pressure 134/98 11/01/2017 1526 EST Pulse 101 11/01/2017 1526 EST Temperature 36.4 ??C (97.5 ??F) 11/01/2017 1526 EST Respiratory Rate 18 11/01/2017 1526 EST Oxygen Saturation 100% 11/01/2017 1526 EST Inhaled Oxygen Concentration - - Weight 167.8 kg (370 lb) 11/01/2017 1526 EST Height 190.5 cm (6' 3) 11/01/2017 1526 EST Body Mass Index 46.25 11/01/2017 1526 EST documented in this encounter Functional Status [...] as of this encounter Discharge Diagnoses Diagnosis R10.11 Right upper quadrant pain-R10.11[ ICD-10-CM] Z88.1 Allergy status to other antibiotic agents status-Z88.1[ICD-10-CM] F17.200 Nicotine dependence, unspecified , uncomplicated-F17.200[ICD-10-CM] documented in this encounter Discharge Instructions InstructionsBaFrancisco guillen MD - 11/01/2017 17:35 EST Return if symptoms develop. Follow-up with your primary care physician. AttachmentsThe following attachments cannot be sent through Care Everywhere. ABDOMINAL PAIN (PORTUGUESE)documented in this encounter Medications at Time of Discharge Medication Sig Dispensed Refills Start Date End Date buPROPion (WELLBUTRIN) 75 Take 75 mg by mouth 0 12/19/2017 mg tablet 3 times daily. gabapentin (NEURONTIN) Take 300 mg by mouth 0 04/11/2018 100 mg capsule daily. ibuprofen (MOTRIN) 200 mg Take 200 mg by mouth 0 12/19/2017 tablet every 6 hours as needed for Pain. OMEGA-3S/DHA/EPA/FISH OIL Take by mouth daily. 0 02/26/2021 (OMEGA 3 ORAL) oxyCODONE-acetaminophen Take 1 Tab by mouth 0 12/19/2017 (PERCOCET) 5-325 mg per at bedtime. tablet documented as of this encounter Discharge Disposition Disposition Code Departure Means Destination Home or Self Retirement documented in this encounter ED Notes Henry, Sarai, RN - 11/01/2017 1741 EST Pt stated he would go to his PCP for a further work up. Has no further requests at this time. Pt refused DC paperwork. Francisco Carrion MD - 11/01/2017 1727 EST DOS: 11/01/2017 Chief Complaint Patient presents with ??? Abdominal Pain pt to ed c/o ruq pain, and gen. malaise x 1 year. multiple other sxs, dizzy, stool changes. NAD. HPI HPI Comments: I, Darrell Cooper, am scribing for Francisco Chanel MD while he/she is personally performing the service. Darrell Cooper 11/01/2017 17:27 Brian Ko is a 42 y.o. male with no significant past medical history. Pt reports over the past three days he has had right upper quadrant abdominal pressure. The discomfort does not radiate through to his back up into his chest or down into his groins. There is no associated nausea, vomiting, diarrhea, black or bloody stools. Patient denies fevers or chills. Patient denies dysuria, urinary frequency or gross hematuria. Patient denies similar symptoms previously. Patient states the symptoms have completely resolved. He states his bowel movements have changed color from brown to yellow over the past two days. Pt also endorses slightly decreased PO intake. Patient denies feeling lightheaded or dizzy. Patient denies headache, sore throat or earache. Patient denies cough, chest congestion or shortness of breath. Patient denies skin rash. Patient has back pain. Patient denies pain or swelling of his lower extremities. Patient now presents for further evaluation and treatment. Social History- 0.25 ppd smoker. No alcohol consumption. The history is provided by the patient and medical records. No historic interpreter was used. Abdominal Pain Pain location: RUQ Pain quality: pressure Pain radiates to: Does not radiate Pain severity: Moderate Onset quality: Gradual Duration: 3 days Timing: Constant Progression: Resolved Chronicity: New Context: not alcohol use, not recent illness, not recent travel, not retching, not sick contacts, not suspicious food intake and not trauma Relieved by: None tried Worsened by: Movement and palpation Ineffective treatments: None tried Associated symptoms: anorexia (slightly diminished appetite) Associated symptoms: no chest pain, no chills, no constipation, no cough, no diarrhea, no dysuria, no fatigue, no fever, no flatus, no hematuria, no nausea, no shortness of breath and no vomiting Risk factors: obesity Risk factors: no alcohol abuse, not elderly, has not had multiple surgeries, no NSAID use and no recent hospitalization Review of Systems Review of Systems Constitutional: Positive for appetite change. Negative for chills, diaphoresis, fatigue and fever. HENT: Negative for rhinorrhea. Eyes: Negative for visual disturbance. Respiratory: Negative for cough and shortness of breath. Cardiovascular: Negative for chest pain. Gastrointestinal: Positive for abdominal pain and anorexia (slightly diminished appetite). Negative for abdominal distention, blood in stool, constipation, diarrhea, flatus, nausea and vomiting. Endocrine: Negative for polydipsia and polyuria. Genitourinary: Negative for difficulty urinating, dysuria and hematuria. Musculoskeletal: Negative for back pain. Skin: Negative for pallor and rash. Allergic/Immunologic: Negative for immunocompromised state. Neurological: Negative for dizziness, weakness and light-headedness. Hematological: Does not bruise/bleed easily. Psychiatric/Behavioral: Negative for agitation and confusion. All other systems reviewed and are negative. The patient's past medical, family and social history was reviewed and updated as needed. Allergies Allergen Reactions ??? Keflex [Cephalexin] Nausea And Vomiting Vital Signs Temp: 36.4 ??C (97.5 ??F) Temp src: Oral Pulse: 101 Resp: 18 SpO2: 100 % BP: (!) 134/98 Physical Exam Constitutional: He is oriented to person, place, and time. He appears well- developed and well-nourished. No distress. HENT: Head: Normocephalic and atraumatic. Nose: Nose normal. Mouth/Throat: Oropharynx is clear and moist. Eyes: Conjunctivae and EOM are normal. Pupils are equal, round, and reactive to light. No scleral icterus. Neck: Normal range of motion. Neck supple. Cardiovascular: Normal rate, regular rhythm and normal heart sounds. Pulmonary/Chest: Effort normal and breath sounds normal. No respiratory distress. Abdominal: Soft. Bowel sounds are normal. He exhibits no distension and no mass. There is no tenderness. There is no rebound and no guarding. Musculoskeletal: Normal range of motion. He exhibits no edema. No CVA tenderness Neurological: He is alert and oriented to person, place, and time. He exhibits normal muscle tone. Skin: Skin is warm and dry. No rash noted. Psychiatric: He has a normal mood and affect. Nursing note and vitals reviewed. RESULTS EKG orders: None Radiology orders: None ED Lab Results Labs Reviewed - No data to display Relevant Data Procedures ED COURSE A medical screening exam was performed. Pt presented to the ED with three days of non-radiating right upper quadrant abdominal pain described as abdominal pressure. Patient states that the symptoms have now completely resolved. Differential diagnosis includes but not limited to cholelithiasis, choledocholithiasis, cholecystitis, pancreatitis, peptic ulcer disease, musculoskeletal pain, gastroesophageal reflux disease Physical exam as above. Patient with a soft nontender abdomen. BP (!) 134/98 Pulse 101 Temp 36.4 ??C (97.5 ??F) (Oral) Resp 18 SpO2 100% Previous laboratory results and CT scan from 2013 were reviewed by myself. Pt denied any further laboratory or imaging studies. Discussed obtaining laboratory tests or possible ultrasound of his right upper quadrant. Patient states that he would like to be discharged and follow up with his primary care physician. Patient discharged. Patient return if symptoms develop. Pt discharged home. Prior to discharge usual and customary precautions were reviewed with the patient and/or family including follow-up instructions and reasons to return to the Emergency Department ifcondition worsens, does not improve as expected, or other new concerns arise. ASSESSMENT AND PLAN Final diagnoses: Right upper quadrant abdominal pain DISPOSITION: Discharged The patient's pain was managed to an adequate level weighing risk vs. benefit of further medications. Upon departure from the Emergency Department, the patient's pain was 0 on a zero to ten scale. Any further pain treatment will be at the discretion of the provider following up with the patient based on their clinical assessment. Condition at departure from the Emergency Department: Improved PCP: Pamela Petty MDM Number of Diagnoses or Management Options Right upper quadrant abdominal pain: new, needed workup Amount and/or Complexity of Data Reviewed Tests in the radiology section of CPT??: reviewed Independent visualization of images, tracings, or specimens: yes (Abdominal CT scan from 2013 reviewed by myself) Risk of Complications, Morbidity, and/or Mortality Presenting problems: moderate Diagnostic procedures: low Management options: moderate General comments: 3 Patient Progress Patient progress: stable This documentation is recorded by Darrell Cooper acting as Scribe under the direction and presence of Francisco Chanel MD. Francisco Chanel MD: I personally performed the services recorded by the scribe in my presence. I confirm the scribe's documentation has been reviewed by me to accurately and completely record my work, treatment, procedures, and medical decision making. 11/02/2017 14:06 No flowsheet data found. Sarai Rosas RN - 11/01/2017 1721 EST Pt sleeping, appears to be in NAD. documented in this encounter Plan of Treatment Upcoming Encounters Date Type Specialty Care Team Description 05/08/2022 Telemedicine Sleep Medicine El Sinclair Jr., MD [address] [facility], [facility] [address] [place], [place] [address] (Wo rk) documented as of this encounter Visit Diagnoses Diagnosis Right upper quadrant abdominal pain - Pr imary Abdominal pain, right upper quadrant documented in this encounter Care Teams Silk Screen Repairer Relationship Specialty Start Date End Date Pamela Petty MD PCP - General 10/07/15 02/08/20 [address] [place] [address] documented as of this encounter
--- OUTSIDE RECORDS SUMMARY | 2022-03-21 09:36 | XMS_ITS | Encounter Summary ---
:1975 Author Organization [facility] Address [address] [place] [address] Care Team Providers Name Role Phone Pamela Petty MD Primary Care Provider Encounter Details Date Type Department Care Team Description 01/18/2017 Results Only [facility] Jacky Petty MD Imaging [facility] [address] [facility] [phone] [place], [place] [address] (Wo rk) Social History Tobacco Use Types [...] Sleep Medicine El Sinclair Jr., MD 1 [facility], Level 2 [place], [place] [address] (Wo rk) documented as of this encounter Procedures Procedure Name Priority Date/Time Associated Diagnosis Comme nts ECHOCARDIOGRAM 02/01/2017 11:28 EDT Resul ts for this procedure are i n the results section . documented in this encounter Results ECHOCARDIOGRAM (02/01/2017 11:28 EDT) Specimen Narrative [facility] - 02/01/2017 12:12 EDT *Interpreting Group:* *[facility]* [address] [place] [address] Date of study: 02/01/2017 Transthoracic Echocardiography M-mode, complete 2D, complete spectral D oppler, and color Doppler *STUDY CONCLUSIONS* Impressions: ??Normal study. Summary: 1. Left ventricle: The cavity size was n ormal. Wall thickness was at the ?? upper limits of normal. Systolic fun ction was normal. The estimated ?? ejection fraction was 55-60%. Wall m otion was normal; there were no ?? regional wall motion abnormalities. 2. Right ventricle: The cavity size was normal. Wall thickness was ?? normal. Systolic function was normal . *PATIENT PRESENTATION* Height: ? 193cm ((76in) ) S/D Pressure: 134 / 75 Weight: ? 172.4kg ((379.2lb) ) BSA: ?3.12m^2 Test start time: ??11:31 AM. Test stop time: ??11:53 AM. ATTENDING ?Pamela Petty ORDERING ? Pamela Petty REFERRING ?Pamela Petty MEDICAL ART THERAPIST ??Ivanna Garza PERFORMING ?? [facility], Op *PROCEDURE DATA* Procedure information: ??This study was interpreted by [facility]. Pertin ent images and digital data are archived for permanent storage and are a vailable for subsequent review. Study status: ??Routine. Transthoracic e chocardiography. ??M-mode, complete 2D, complete spectral Doppler, and color Doppler. A Transthoracic Echocardiogram was perform ed. Scanning was performed from the parasternal, apical, subcostal, and suprasternal notch acoustic windows. Images were obtained using a LiveStub IE33 7 cardiac ultrasound machine. Image quality was suboptimal. T he study was technically limited due to body habitus. ??Study completion: ??The patient tolerated the procedure well. *INDICATIONS AND HISTORY* Indications: ?? Bradycardia (r00.1), tamara saleh, pre-procedure. *CARDIAC ANATOMY* Left ventricle: ??The cavity size was no rmal. Wall thickness was at the upper limits of normal. Systolic functio n was normal. The estimated ejection fraction was 55-60%. Wall motio n was normal; there were no regional wall motion abnormalities. Montanez tolic parameters were normal. Aortic valve: ?? Trileaflet; normal thic kness leaflets. Mobility was not restricted. ??Doppler: ??Transvalvular v elocity was within the normal range. There was no stenosis. There was no regurgitation. Aorta: ??Aortic root: The aortic root wa s mildly dilated. Mitral valve: ?? Structurally normal kina ve. ?? Mobility was not restricted. ??Doppler: ??Transvalvular v elocity was within the normal range. There was no evidence for stenosi s. There was no regurgitation. Peak gradient (D): 2.5mm Hg. Left atrium: ??The atrium was normal in size. Right ventricle: ??The cavity size was n ormal. Wall thickness was normal. Systolic function was normal. Pulmonic valve: ?Doppler: ??Transval vular velocity was within the normal range. There was no evidence for stenosis. There was no regurgitation. Tricuspid valve: ?? Structurally normal valve. ?Doppler: ??Transvalvular velocity was within the normal range. Th ere was no evidence for stenosis. There was no regurgitation. Pulmonary artery: ?Systolic pressure could not be accurately estimated. Right atrium: ??The atrium was normal in size. Pericardium: ??There was no pericardial effusion. Systemic veins: Inferior vena cava: The vessel was cookie l in size. Measurements Left ventricle ? Value ?Reference LV ID, ED, PLAX ?5.1 ?? cm ? 3.5 - 6.0 LV ID, ES, PLAX ?3.7 ?? cm ? 2.1 - 4.0 LV PW thickness, ED, PLAX ?1.1 ?? cm ? LV end-diastolic volume, 1-p A2C ? 69 ?ml ? LV ejection fraction, 1-p A2C ?57 ?% ? LV end-diastolic volume, 1-p A4C ? 42 ?ml ? LV ejection fraction, 1-p A4C ?55 ?% ? LV IVRT, DP ?81 ?ms ? 60 - 100 LV e', lateral ? 0.124 m/sec ?? LV E/e', lateral ? 6 ? LV e', medial ?0.084 m/sec ?? LV E/e', medial ?9 ? LV e', average ? 0.104 m/sec ?? LV E/e', average ? 8 ? Ventricular septum ? Value ?Reference IVS thickness, ED, PLAX ?1.2 ?? cm ? LVOT ? Value ?Reference LVOT ID, S ? 2.3 ?? cm ? LVOT area ?4.2 ?? cm^2 ?? Aorta ?Value ?Reference Aortic root ID ? 4.2 ?? cm ? Ascending aorta ID, A-P ?3.3 ?? cm ? Ascending aorta ID, A-P, S ? 3.3 ?? cm ? Left atrium ?Value ?Reference LA ID, A-P, ES ? 3.4 ?? cm ? LA ID/bsa, A-P ? 1.1 ?? cm/m^2 <=2.2 LA ID, M-L, A4C ?4.9 ?? cm ? 2.9 - 4.9 LA area, ES, A4C ? 14 ?cm^2 ?? 8.8 - 23.4 LA volume, ES, 1-p A4C ? 32 ?ml ? LA volume/bsa, ES, 1-p A4C ? 10 ?ml/m^2 LA volume, ES, A/L ? 32 ?ml ? LA volume/bsa, ES, A/L ? 10 ?ml/m^2 LA/aortic root ratio ? 0.81 ? Mitral valve ? Value ?Reference Mitral E-wave peak velocity ?0.79 ??m/sec ?? Mitral A-wave peak velocity ?0.67 ??m/sec ?? Mitral deceleration time ? 158 ?? ms ? 150 - 230 Mitral peak gradient, D ?2.5 ?? mm Hg ?? Mitral E/A ratio, peak ? 1.2 ? Legend: (L) ??and ??(H) ??soha values outside sp ecified reference range. I have personally reviewed the images an d have reviewed and edited the reported findings. Electronically signed by Ulises Delong MD 02/01/2017 12:12 Procedure Note Ulises Delong MD - 02/01/2017 *Interpreting Group:* *[facility]* [address] [place] [address] Date of study: 02/01/2017 Transthoracic Echocardiography M-mode, complete 2D, complete spectral D oppler, and color Doppler *STUDY CONCLUSIONS* Impressions: Normal study. Summary: 1. Left ventricle: The cavity size was n ormal. Wall thickness was at the upper limits of normal. Systolic functi on was normal. The estimated ejection fraction was 55-60%. Wall marizol on was normal; there were no regional wall motion abnormalities. 2. Right ventricle: The cavity size was normal. Wall thickness was normal. Systolic function was normal. *PATIENT PRESENTATION* Height: 193cm ((76in) ) S/D Pressure: 134 / 75 Weight: 172.4kg ((379.2lb) ) BSA: 3.12m^2 Test start time: 11:31 AM. Test stop time: 11:53 AM. ATTENDING Pamela Petty ORDERING Pamela Petty REFERRING Pamela Petty MEDICAL ART THERAPIST Ivanna Garza PERFORMING [facility], Op *PROCEDURE DATA* Procedure information: This study was in terpreted by [facility]. Pertin ent images and digital data are archived for permanent storage and are a vailable for subsequent review. Study status: Routine. Transthoracic ech ocardiography. M-mode, complete 2D, complete spectral Doppler, and color Doppler. A Transthoracic Echocardiogram was perform ed. Scanning was performed from the parasternal, apical, subcostal, and suprasternal notch acoustic windows. Images were obtained using a LiveStub IE33 7 cardiac ultrasound machine. Image quality was suboptimal. T he study was technically limited due to body habitus. Study completion: T he patient tolerated the procedure well. *INDICATIONS AND HISTORY* Indications: Bradycardia (r00.1), known, pre-procedure. *CARDIAC ANATOMY* Left ventricle: The cavity size was norm al. Wall thickness was at the upper limits of normal. Systolic functio n was normal. The estimated ejection fraction was 55-60%. Wall motio n was normal; there were no regional wall motion abnormalities. Montanez tolic parameters were normal. Aortic valve: Trileaflet; normal thickne ss leaflets. Mobility was not restricted. Doppler: Transvalvular veloc ity was within the normal range. There was no stenosis. There was no regurgitation. Aorta: Aortic root: The aortic root was mildly dilated. Mitral valve: Structurally normal valve. Mobility was not restricted. Doppler: Transvalvular veloc ity was within the normal range. There was no evidence for stenosi s. There was no regurgitation. Peak gradient (D): 2.5mm Hg. Left atrium: The atrium was normal in si ze. Right ventricle: The cavity size was nor mal. Wall thickness was normal. Systolic function was normal. Pulmonic valve: Doppler: Transvalvular v elocity was within the normal range. There was no evidence for stenosis. There was no regurgitation. Tricuspid valve: Structurally normal kina ve. Doppler: Transvalvular velocity was within the normal range. Th ere was no evidence for stenosis. There was no regurgitation. Pulmonary artery: Systolic pressure coul d not be accurately estimated. Right atrium: The atrium was normal in s ize. Pericardium: There was no pericardial ef fusion. Systemic veins: Inferior vena cava: The vessel was cookie l in size. Measurements Left ventricle Value Reference LV ID, ED, PLAX 5.1 cm 3.5 - 6.0 LV ID, ES, PLAX 3.7 cm 2.1 - 4.0 LV PW thickness, ED, PLAX 1.1 cm ------ ---- LV end-diastolic volume, 1-p A2C 69 ml LV ejection fraction, 1-p A2C 57 % ---- ------ LV end-diastolic volume, 1-p A4C 42 ml LV ejection fraction, 1-p A4C 55 % ---- ------ LV IVRT, DP 81 ms 60 - 100 LV e', lateral 0.124 m/sec LV E/e', lateral 6 LV e', medial 0.084 m/sec LV E/e', medial 9 LV e', average 0.104 m/sec LV E/e', average 8 Ventricular septum Value Reference IVS thickness, ED, PLAX 1.2 cm -------- -- LVOT Value Reference LVOT ID, S 2.3 cm LVOT area 4.2 cm^2 Aorta Value Reference Aortic root ID 4.2 cm Ascending aorta ID, A-P 3.3 cm -------- -- Ascending aorta ID, A-P, S 3.3 cm ----- ----- Left atrium Value Reference LA ID, A-P, ES 3.4 cm LA ID/bsa, A-P 1.1 cm/m^2 <=2.2 LA ID, M-L, A4C 4.9 cm 2.9 - 4.9 LA area, ES, A4C 14 cm^2 8.8 - 23.4 LA volume, ES, 1-p A4C 32 ml LA volume/bsa, ES, 1-p A4C 10 ml/m^2 -- -------- LA volume, ES, A/L 32 ml LA volume/bsa, ES, A/L 10 ml/m^2 ------ ---- LA/aortic root ratio 0.81 Mitral valve Value Reference Mitral E-wave peak velocity 0.79 m/sec Mitral A-wave peak velocity 0.67 m/sec Mitral deceleration time 158 ms 150 - 2 30 Mitral peak gradient, D 2.5 mm Hg ----- ----- Mitral E/A ratio, peak 1.2 Legend: (L) and (H) soha values outside specifie d reference range. I have personally reviewed the images an d have reviewed and edited the reported findings. Electronically signed by Ulises Delong MD 02/01/2017 12:12 Performing Organization Address City/State/ZIP Code Phon e Number [facility] documented in this encounter Visit Diagnoses Not on filedocumented in this encounter Care Teams Journeyman Painter Relationship Specialty Start Date End Date Pamela Petty MD PCP - General 10/07/15 02/08/20 [address] [place] [address] documented as of this encounter
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
--- OUTSIDE RECORDS SUMMARY | 2022-03-21 09:36 | XMS_ITS | Encounter Summary ---
:1975 Author Organization [facility] Address [address] [place] [address] Care Team Providers Name Role Phone Pamela Petty MD Primary Care Provider Reason for Referral Prior Authorization (Routine) - Specialty Report Received Specialty Diagnoses / Procedures Referred By Contact Refer red To Contact Diagnoses Left shoulder pain, unspecified chronicity Guzman Dash MD [facility] [place] [address] Referral ID Status Reason Start Expiration Visits Visits Date Date Requested Authorized [id number] Specialty Specialty 10/08/2017 1 1 Report Services Received Required Question Answer Reason for Request: L USG GH INJ Comments The purpose of this consult request is t o inform the scheduling staff that a procedure/surgery needs to be prior-auth orized before it is scheduled. Reason for Visit Reason Comments Shoulder Pain Encounter Details Date Type Department Care Team Description 10/08/2017 Orders Only [facility] Guzman Dash shou lder pain, Sports Medicine MD Michael unspecified chronicity Program - [place] [address] [address] [facility] (Primary Dx) [address] [place] [address], [facility] [phone] [id number] Social History Tobacco Use Types Packs/Day Years [...] Telemedicine Sleep Medicine El Sinclair Jr., MD [address] [place] [address] 2 [place], [place] [address] (Wo rk) Scheduled Referrals Name Type Priority Associated Order Schedule Diagnoses AMB CONS/FOLLOW UP Outpatient Referral Routine Left shoulder p ain, Ordered: PROCEDURE PRIOR unspecified 10/08/2017 AUTHORIZATION REQUEST chronicity documented as of this encounter Visit Diagnoses Diagnosis Left shoulder pain, unspecified chronici ty - Primary documented in this encounter Care Teams Dietary Director Relationship Specialty Start Date End Date Pamela Petty MD PCP - General 10/07/15 02/08/[address] [place] [address] documented as of this encounter
--- OUTSIDE RECORDS SUMMARY | 2022-03-21 09:36 | XMS_ITS | Encounter Summary ---
:1975 Author Organization [facility] Address [address] [place] [address] Care Team Providers Name Role Phone Galo Bello MD Primary Care Provider Reason for Visit Reason Comments Ear Infection (Otitis Media) Encounter Details Date Type Department Care Team Description 04/28/2015 Office Visit [facility] Nkechi Major, Un specified chronic ENT- [facility] suppurative otitis [address] [place] (Primary Dx) [place] [address] Avenue [phone] [facility], Level 4 [place] [phone] (Wo rk) Social History Tobacco Use Types [...] on file documented as of this encounter Ordered Prescriptions Prescription Sig Dispensed Refills Start Date End Date ciprofloxacin-dexamethason Place 4 Drops into 1 Bottle 0 0 04/28/2015 05/12/2015 e (CIPRODEX) otic the left ear 2 suspension times daily for 14 days documented in this encounter Progress Notes Nkechi Major MD - 04/28/2015 1349 EDT Mr Ko is a 39-year-old gentleman who is here today in consultation from Pamela Petty for ear problems. He has a lifelong history of ear problems. He had 1 set of PE tubes when he was a child. He had chronic childhood infections. He has had persistent problems with this ears through is adulthood. He says he gets about 4 infections per year. Symptoms include pain, decreased hearing, and drainage. Sometimes he may get a TM perforation. He does not always treat it with antibiotics and sometimes it will clear on its own. He cleans his ears out frequently with Q-tips, sometimes getting blood on the Q-tips. His last hearing test was about 10 years ago, and he does note that the hearing is decreased, par ticularly on the left side. He noted about 6 weeks ago that he was having some problems with his balance. He feels like this hasgradually improved, and now he only has a mild off balance feeling, kind of like he has just gotten off a boat. He does smoke a pack a day. PAST MEDICAL HISTORY: He does not have other medical problems. PAST SURGERY: The ear tubes. FAMILY HISTORY: Is unremarkable. He smokes a pack a day. He drinks a quarter of the drink a week. 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 REVIEW OF SYSTEMS: Is notable for hearing loss, ear pain, and ankle swelling. He is allergic to KEFLEX. PHYSICAL EXAM: Generally, he is in no distress. He is overweight, and he appears older than his stated age. His voice is of normal quality. His face reveals symmetric movement. His nose externally is unremarkable. Internally, he does have a septal deviation over to the right side. Mucosa is somewhat boggy on the left side. His mouth and oropharynx reveals poor dentition with some missing teeth. He has 2 to 3+ tonsils, and there is some general mucosal inflammation. His neck reveals no masses or adenopathy. Salivary glands are normal to palpation. His right ear reveals the auricle and canal to be normal appearing. He has retraction of the tympanic membrane with some scarring. He may have middle earfluid. There is no inflammation. The left ear, the auricle is normal appearing. He has some inflammation and looks like probably some granulation tissue of the canal posterior medial. His tympanic membrane is extremely retracted. There is some debris over the tympanic membrane, but he does not tolerate at all having this suctioned off. It is hard for me to tell whether there could be any cholesteatoma there. ASSESSMENT: Chronic otitis media, worse on the left. PLAN: I would like to start him on some Ciprodex drops for a couple of weeks and then have him return for followup and take another look and see if I can get a better evaluation of his ear at that time. Contributing factors to ear problems include his excessive Q-tips use and the cigarette smoking. documented in this encounter Plan of Treatment Upcoming Encounters Date Type Specialty Care Team Description 05/08/2022 Telemedicine Sleep Medicine El Sinclair Jr., MD [address] [place] [address], Level 2 [place], [place] [phone] (Wo rk) documented as of this encounter Visit Diagnoses Diagnosis Unspecified chronic suppurative otitis m edia - Primary documented in this encounter Care Teams Regional Hr Manager Relationship Specialty Start Date End Date Galo Bello MD PCP - General 05/06/13 10/06/[address] [place] [address] [address] [place] [address] documented as of this encounter
--- OUTSIDE RECORDS SUMMARY | 2022-03-21 09:36 | XMS_ITS | Encounter Summary ---
:1975 Author Organization [facility] Address [address] [place] [address] Care Team Providers Name Role Phone Pamela Petty MD Primary Care Provider Reason for Visit Reason Onset Date Comments Appointment Related 05/30/2017 Encounter Details Date Type Department Care Team Description 05/30/2017 Telephone [facility] Shay Cartagena Appointment Related Medicine Program - Myesha [address] [place], [place] [address] Social History Tobacco Use [...] this encounter Miscellaneous Notes Telephone Encounter - Anita Soriano - 05/30/2017 1420 EDT Left a voicemail for this afternoon I left both his MRI appt date and time and also his follow up with us here at [facility]. I left both my name and number for him to reach me if he has any questions or concerns. documented in this encounter Plan of Treatment Upcoming Encounters Date Type Specialty Care Team Description 05/08/2022 Telemedicine Sleep Medicine El Sinclair Jr., MD 1 [facility], Level 2 [place], [place] [phone] (Wo rk) documented as of this encounter Visit Diagnoses Not on filedocumented in this encounter Care Teams Tank Farm Operator Relationship Specialty Start Date End Date Pamela Petty MD PCP - General 10/07/15 02/08/20 [address] [place] [address] documented as of this encounter
--- OUTSIDE RECORDS SUMMARY | 2022-03-21 09:36 | XMS_ITS | Encounter Summary ---
:1975 Author Organization [facility] Address [address] [place] [address] Care Team Providers Name Role Phone Pamela Petty MD Primary Care Provider Reason for Referral Consult (Routine) - Specialty Report Received Specialty Diagnoses / Procedures Referred By Contact Refer red To Contact Physical Medicine and Diagnoses Left shoulder pain, unspecified chronicity Kranthi Hillman S [facility] MD Mina Yates III, MD [address] [phone] [place] [address] Fax: Referral ID Status Reason Start Expiration Visits Visits Date Date Requested Authorized [id number] Specialty Specialty 1 1 Report Services 7 Received Required Question Answer Reason for Request: LEFT SHOULDER PAIN, Number of limbs 1 Laterality: Left, Upper Extremity Comments LEFT SHOULDER DISLOCATION. RULE OUT AXIL ALFONSO NERVE INJURY. Reason for Visit Reason Onset Date Comments Shoulder Pain 07/26/2017 Encounter Details Date Type Department Care Team Description 07/26/2017 Orders Only [facility] Kranthi Hillman [facility] pain, Sports Medicine Milan SIMON MD unspecified chronicity Program - [facility] [address] [facility] (Primary Dx) [address] [place] [address], [facility] [address] [phone] Social History Tobacco Use Types Packs/Day Years [...] Telemedicine Sleep Medicine El Sinclair Jr., MD [address] [place] [address] 2 [place], [place] [address] (Wo rk) Scheduled Referrals Name Type Priority Associated Diagnoses Order S chedule AMB CONS/FOLLOW UP Outpatient Referral Routine Left shoulder p ain, Ordered: PHYSIATRY EMG/NCV unspecified 07/26/2017 chronicity documented as of this encounter Visit Diagnoses Diagnosis Left shoulder pain, unspecified chronici ty - Primary documented in this encounter Care Teams Psychiatric Np Relationship Specialty Start Date End Date Pamela Petty MD PCP - General 10/07/15 02/08/20 7 [place] [address] documented as of this encounter
--- OUTSIDE RECORDS SUMMARY | 2022-03-21 09:36 | XMS_ITS | Encounter Summary ---
:1975 Author Organization [facility] Address [address] [place] [address] Care Team Providers Name Role Phone Pamela Petty MD Primary Care Provider Reason for Referral Radiology Services (Routine/Next Available) - New Request Specialty Diagnoses / Procedures Referred By Contact Refer red To Contact Diagnoses Left shoulder pain, unspecified chronicity Guzman Dash MD Procedures [facility] US SHOULDER [address] [place] [address] Referral ID Status Reason Start Date Expiration Date Visits V isits Requested Authorized [id number] New Request 10/11/2017 1 1 Encounter Details Date Type Department Care Team Description 10/11/2017 Orders Only [facility] Guzman Dash Left shou lder pain, Sports Medicine MD Michael unspecified chronicity Program - [facility] 192 [facility] (Primary Dx) 192 [facility], [facility] [phone] Social History Tobacco Use Types Packs/Day Years [...] Sleep Medicine El Sinclair Jr., MD 1 [facility], Level 2 [place], [place] [address] (Wo rk) documented as of this encounter Procedures Procedure Name Priority Date/Time Associated Diagnosis Comme nts [facility] US SHOULDER Routine 10/11/2017 16:15 EST Left shoulder renetta n, Results for this unspecified procedure are i n chronicity the results section. documented in this encounter Results [facility] US SHOULDER (10/11/2017 16:15 EST) Anatomical Region Laterality Modality Other Specimen Narrative [facility] - 10/11/2017 16:15 EST Non Reportable Exam Procedure Note GRADER MARKER, IMAGING - 10/19/2017 Non Reportable Exam Performing Organization Address City/State/ZIP Code Phon e Number [facility] [place] documented in this encounter Visit Diagnoses Diagnosis Left shoulder pain, unspecified chronici ty - Primary documented in this encounter Care Teams Home Teaching Grades 9 Thru 12 Teacher Relationship Specialty Start Date End Date Pamela Petty MD PCP - General 10/07/15 02/08/20 7 [place] [address] documented as of this encounter
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
--- OUTSIDE RECORDS SUMMARY | 2022-03-21 09:36 | XMS_ITS | Encounter Summary ---
:1975 Author Organization [facility] Address [address] [place] [address] Care Team Providers Name Role Phone Pamela Petty MD Primary Care Provider Reason for Visit Reason Onset Date Comments Appointment Related 02/11/2018 npv Encounter Details Date Type Department Care Team Description 02/11/2018 Telephone [facility] Pamela Petty MD Appointment Related Sleep Program - [address] [facility] (npv) [place] [address] [place] [address] (W ork) [place] [address] [address] Social History Tobacco Use Types Packs/Day Years [...] this encounter Miscellaneous Notes Telephone Encounter - Judi Christopher - 02/11/2018 1210 EDT npv scheduled for 8.2 as pt needs visit early to re certify for cdl documented in this encounter Plan of Treatment Upcoming Encounters Date Type Specialty Care Team Description 05/08/2022 Telemedicine Sleep Medicine El Sinclair Jr., MD 1 [facility] 2 [place], [place] [phone] (Wo rk) documented as of this encounter Visit Diagnoses Not on filedocumented in this encounter Care Teams College Advisor Relationship Specialty Start Date End Date Pamela Petty MD PCP - General 10/07/15 02/08/20 [address] [place] [address] documented as of this encounter
--- OUTSIDE RECORDS SUMMARY | 2022-03-21 09:36 | XMS_ITS | Encounter Summary ---
:1975 Author Organization Address [address] [place] [address] Care Team Providers Name Role Phone Pamela Petty MD Primary Care Provider Reason for Visit Reason Comments Cardiac Testing Cardiology (3 - 10 Business Days) - Closed Specialty Diagnoses / Procedures Referred By Contact Refer red To Contact Diagnoses Dizziness, nonspecific Intermittent palpitations Audelia Gonzales MD Procedures HOLTER MONITOR [address] [phone] Referral ID Status Reason Start Date Expiration Date Visits Requ ested Visits Authorized [id number] Closed 12/04/2016 1 1 Encounter Details Date Type Department Care Team Description 12/07/2016 Procedure visit [facility] Angelica Gonzales MD [address] [address] Dizziness, nonspecific; Cardiology - [place] Winter Intermittent [place] [address] Social History Tobacco Use Types [...] Diagnoses Diagnosis R42 Dizziness and giddiness-R42[ICD-10-C M] R00.2 Palpitations-R00.2[ICD-10-CM] documented in this encounter Discharge Disposition Disposition Code Departure Means Destination Auto Discharge documented in this encounter Plan of Treatment Upcoming Encounters Date Type Specialty Care Team Description 05/08/2022 Telemedicine Sleep Medicine El Sinclair Jr., MD [address] [place] [address] 2 [place], [place] [address] (Wo rk) documented as of this encounter Procedures Procedure Name Priority Date/Time Associated Diagnosis Comme nts HOLTER MONITOR Routine 12/07/2016 14:00 EDT Dizziness, nonspecific Results for this Intermittent procedure are i n palpitations the results section. documented in this encounter Results HOLTER MONITOR (12/07/2016 14:00 EDT) Specimen Narrative [facility] EKG - 12/14/2016 17:1 2 EDT ? [facility] ? Test Date: ?2016-12-07 Pat Name: ? BRIAN KO ? Department: ?? TI ? Room: ? Gender: ?3D Specialist: ?? DC : ?1975 ? Requested By: JACK Martin Order Number: [id number] ? Tommy GUALLPA: ?? PRAMOD OROSCO MD ? Interpretive Statements 48 hour holter Reason for Holter: dizziness Baseline: sinus tachycardia Avg/max/min HR: 100/156/63 No Ventricular or Atrial ectopy seen No diary provided I have reviewed the above holter monitor and agree with the findings as outlined by the fellow above.Edited by Mika SALAZAR MD on 12-12-16 13:48:07 EDT. I reviewed the tracing and have either a greed or edited the findings in this report. Electronically Signed On 17:12:33 EDT by PRAMOD OROSCO MD. Procedure Note Pramod Orosco MD - 12/14/2016 [facility] Test Date: 2016-12-07 Pat Name: BRIAN KO Department: TI Room: Gender: 3D Specialist: DC : 1975 Requested By: JACK Martin Order Number: [id number] Tommy MD: Radha OROSCO MD Interpretive Statements 48 hour holter Reason for Holter: dizziness Baseline: sinus tachycardia Avg/max/min HR: 100/156/63 No Ventricular or Atrial ectopy seen No diary provided I have reviewed the above holter monitor and agree with the findings as outlined by the fellow above.Edited by Mika SALAZAR MD on 12-12-16 13:48:07 EDT. I reviewed the tracing and have either a greed or edited the findings in this report. Electronically Signed On 17:12:33 EDT by PRAMOD OROSCO MD. Performing Organization Address City/State/ZIP Code Phon e Number [facility] EKG documented in this encounter Visit Diagnoses Diagnosis Dizziness, nonspecific Dizziness and giddiness Intermittent palpitations documented in this encounter Care Teams Echo Vascular Tech Relationship Specialty Start Date End Date Pamela Petty MD PCP - General 10/07/15 02/08/20 [address] [place] [address] documented as of this encounter
--- OUTSIDE RECORDS SUMMARY | 2022-03-21 09:36 | XMS_ITS | Encounter Summary ---
:1975 Author Organization [facility] Address [address] [place] [address] Care Team Providers Name Role Phone Pamela Petty MD Primary Care Provider Reason for Visit Reason Onset Date Comments Appointment Related 08/14/2018 Encounter Details Date Type Department Care Team Description 08/14/2018 Telephone [facility] El Sinclair ment Related Sleep Program - S Beck Morgan MD [place] [address] 2 [place] [address] [place], [place] [phone] (Wo rk) Social History Tobacco Use [...] Notes Telephone Encounter - Mali Cash - 08/14/2018 1056 EST Spoke with patient and scheduled download for 08/20 1330, FUR 01/02. elephone Encounter - Mali Csah - 08/14/2018 1053 EST ----- Message from El Sinclair MD sent at 07/19/2018 18:05 EST ----- Please contact patient to schedule both a 3-month visit and an appointment with the solder technician to obtain flow generator download. 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 documented in this encounter Plan of Treatment Upcoming Encounters Date Type Specialty Care Team Description 05/08/2022 Telemedicine Sleep Medicine El Sinclair Jr., MD [address] [facility], [address] 2 [place], [place] [address] (Wo rk) documented as of this encounter Visit Diagnoses Not on filedocumented in this encounter Care Teams Poultry Picker Relationship Specialty Start Date End Date Pamela Petty MD PCP - General 10/07/15 02/08/[address] [place] [address] documented as of this encounter
--- OUTSIDE RECORDS SUMMARY | 2022-03-21 09:36 | XMS_ITS | Encounter Summary ---
:1975 Author Organization [facility] Address [address] [place] [address] Care Team Providers Name Role Phone Pamela Petty MD Primary Care Provider Encounter Details Date Type Department Care Team Description 10/15/2015 Hospital Encounter [facility] - Pamela Petty MD [place] [address] [facility] [address] [place] [address] [place], [place] [phone] ( Work) [phone] Social History Tobacco Use Types Packs/Day Years [...] as of this encounter Discharge Diagnoses Diagnosis Z01.89 Encounter for other specified spe cial examinations-Z01.89[ICD-10-CM] documented in this encounter Medications at Time of Discharge Medication Sig Dispensed Refills Start Date End Date ibuprofen (MOTRIN) 600 mg Take 1 Tab by mouth 30 Tab 0 0 04/23/2012 03/29/2016 tablet 3 times daily. documented as of this encounter Discharge Disposition Disposition Code Departure Means Destination Home or Self Shelter documented in this encounter Plan of Treatment Upcoming Encounters Date Type Specialty Care Team Description 05/08/2022 Telemedicine Sleep Medicine El Sinclair Jr., MD [address] [facility], [address] [place] [address] (Wo rk) documented as of this encounter Procedures Procedure Name Priority Date/Time Associated Diagnosis Comme nts ORBITS FOR FOREIGN 10/15/2015 13:41 Resul ts for this BODY EST procedure are i n the results section. documented in this encounter Results ORBITS FOR FOREIGN BODY (10/15/2015 13:41 EST) Anatomical Region Laterality Modality Other Specimen Narrative [facility] - 10/15/2015 14:23 EST ORBITS FOR FOREIGN BODY ??10/15/2015 1:41 PM Signs and Symptoms/Comments: ??Prior for eign body in eye. Prior to MRI. Comparison: None. Findings: AP and lateral views centered on the orb its and sinuses reveal no radiopaque foreign object within the ter ritory of the orbits or sinuses. I have personally reviewed the images an d the above interpretation and agree with the findings. Procedure Note Luan Alonso MD - 10/15/2015 ORBITS FOR FOREIGN BODY 10/15/2015 1:41 PM Signs and Symptoms/Comments: Prior forei gn body in eye. Prior to MRI. Comparison: None. Findings: AP and lateral views centered on the orb its and sinuses reveal no radiopaque foreign object within the ter ritory of the orbits or sinuses. I have personally reviewed the images an d the above interpretation and agree with the findings. Performing Organization Address City/State/ZIP Code Phon e Number [facility] [place] documented in this encounter Visit Diagnoses Not on filedocumented in this encounter Care Teams Facilities Director Relationship Specialty Start Date End Date Pamela Petty MD PCP - General 10/07/15 02/08/20 [address] [place] [address] documented as of this encounter
--- OUTSIDE RECORDS SUMMARY | 2022-03-21 09:36 | XMS_ITS | Encounter Summary ---
:1975 Author Organization [facility] Address [address] [place] [address] Care Team Providers Name Role Phone Pamela Petty MD Primary Care Provider Reason for Visit Reason Comments Shoulder Pain Encounter Details Date Type Department Care Team Description 12/19/2017 Office Visit [facility] Kranthi Hillman er dislocation, Sports Medicine Milan SIMON MD left, subsequent Program - [place] [address] encounter (Primary Dx) [address] [place] [facility] [phone] [phone] Social History Tobacco Use Types Packs/Day Years [...] - Inhaled Oxygen Concentration - - Weight 167.8 kg (370 lb) 12/19/2017 1402 EDT Height 190.5 cm (6' 3) 12/19/2017 1402 EDT Body Mass Index 46.25 12/19/2017 1402 EDT documented in this encounter Functional Status [...] encounter Progress Notes Kranthi Hillman MD - 12/19/2017 1415 EDT PROBLEM: Status post anterior dislocation, left shoulder. SUBJECTIVE: Mr Ko continues to have excellent pain relief following his ultrasound-guided injection in the glenohumeral joint. He is having no problems. He is sleeping through the night. 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 OBJECTIVE: Active elevation 170, scapular abduction 140, internal rotation T12, external rotation 50degrees. There is no pain with resisted scapular abduction or external rotation. Lift-off test is negative. His apprehension sign is mildly positive. ASSESSMENT: Mr Ko has improved. His motion is acceptable. At this point, I can see no reason why he cannot return to work without restrictions. He is given a letter stating this. PLAN: I will see him back as needed. documented in this encounter Plan of Treatment Upcoming Encounters Date Type Specialty Care Team Description 05/08/2022 Telemedicine Sleep Medicine El Sinclair Jr., MD [address] [place] [address], [address] [place], [place] [phone] (Wo rk) documented as of this encounter Visit Diagnoses Diagnosis Shoulder dislocation, left, subsequent e ncounter - Primary documented in this encounter Discontinued Medications Medication Sig Discontinue Reason Start Date End Date buPROPion (WELLBUTRIN) Take 75 mg by Patient Stopped Taking 12/19/2017 75 mg tablet mouth 3 times daily. ibuprofen (MOTRIN) 200 Take 200 mg by Patient Stopped Taking 12/19/2017 mg tablet mouth every 6 hours as needed for Pain. oxyCODONE-acetaminophe Take 1 Tab by Patient Stopped Taking 12/19/2017 n (PERCOCET) 5-325 mg mouth at bedtime. per tablet documented as of this encounter Care Teams Mail Rider Relationship Specialty Start Date End Date Pamela Petty MD PCP - General 10/07/15 02/08/20 [address] [place] [address] documented as of this encounter
--- OUTSIDE RECORDS SUMMARY | 2022-03-21 09:36 | XMS_ITS | Encounter Summary ---
:1975 Author Organization [facility] Address [address] [place] [address] Care Team Providers Name Role Phone Pamela Petty MD Primary Care Provider Reason for Referral Cardiology (3 - 10 Business Days) - Closed Specialty Diagnoses / Procedures Referred By Contact Refer red To Contact Diagnoses Dizziness, nonspecific Intermittent palpitations Audelia Gonzales MD Procedures HOLTER MONITOR [address] [phone] Referral ID Status Reason Start Date Expiration Date Visits Requ ested Visits Authorized [id number] Closed 12/04/2016 1 1 Reason for Visit Reason Comments Dizziness Pt describes >month of inter mittent feelings of dizziness, light headedness, sweats, nausea, left arm numbness. Denies CP, SOB. Has had recent syncope. AOx4, Skin P WD, RR unlabored. Encounter Details Date Type Department Care Team Description 12/02/2016 Emergency [facility] Center Angelica Gonzales MD [address] [phone] Dizziness, nonspecific (Primary Dx); Emergency Department Emergency, MD Fabio Intermittent palpitations - [facility] [address] [place] [address] Social History Tobacco Use Types [...] Sign Reading Time Taken Comments Blood Pressure 128/79 12/02/20162099 EDT Pulse 87 12/02/20161899 EDT Temperature 37.1 ??C (98.7 ??F) 12/02/20161899 EDT Respiratory Rate 18 12/02/20162099 EDT Oxygen Saturation 96% 12/02/20162099 EDT Inhaled Oxygen Concentration - - Weight - - Height - - Body Mass Index - - documented in this encounter Functional Status Functional [...] R42 Dizziness and giddiness-R42[ICD-10-C M] R00.2 Palpitations-R00.2[ICD-10-CM] E66.9 Obesity, unspecified-E66.9[ICD-10- CM] F17.200 Nicotine dependence, unspecified , uncomplicated-F17.200[ICD-10-CM] Z82.3 Family history of stroke-Z82.3[ICD -10-CM] Z82.49 Family history of ischemic heart disease and other diseases of the circulatory system-Z82.49[ICD-10-CM] documented in this encounter Discharge Instructions AttachmentsThe following attachments cannot be sent through Care Everywhere. DIZZINESS (CROATIAN)documented in this encounter Discharge Disposition Disposition Code Departure Means Destination Home or Self Care documented in this encounter ED Notes Charis Partida RN - 12/02/20162129 EDT Pt provided with discharge paperwork and verbalizes understanding of all instructions without question. Pt ambulates out of ED in steady gait in no acute distress. Lavelle Watt - 12/02/20161951 EDT Blood drawn via saline lock per protocol, rainbow tube(s) sent to lab per order. Charis Diehl RN - 12/02/20161922 EDT 12 Lead EKG Performed by Charis Partida RN and shown to Audelia Gonzales MD. Audelia Valerio MD - 12/02/20161920 EDT DOS: 12/02/2016 Chief Complaint Patient presents with ??? Dizziness Pt describes >month of intermittent feelings of dizziness, light headedness, sweats, nausea, left arm numbness. Denies CP, SOB. Has had recent syncope. AOx4, Skin PWD, RR unlabored. The history is provided by the patient and medical records. I, Rob García, am scribing for Audelia Gonzales MD while he/she is personally performing the service. Rob García 12/02/2016 19:23 Yolanda Ko is a 41 y.o. male with no significant past medical history who presents to the ED with one month of dizziness and light headedness episodes, and tonight had an episode of near syncope. Thepatient explains that he has intermittently had for the last month, episodes where he suddenly becomes dizzy, flushed, nauseous and light headed. He notes that during these episodes he will also develop a pain in his chest that he describes as lightness, general body aches, neck pain and have a strong urge to defecate. The patient states that he also will develop tingling in his finger tips and toes during these episodes. He notes that these episodes will be severe for 5-10 minutes, but take 6-8 hours to completely resolve and have lasted up to a day before he feels back to baseline. Patient denies palpitations. Patient denies a personal history of cardiac disease or stroke, but states he has a family history of stroke and cardiac disease. Review of Systems Review of Systems Constitutional: Positive for fatigue and fever (subjective). Negative for chills. HENT: Negative for congestion, sore throat and trouble swallowing. Eyes: Negative. Respiratory: Negative for chest tightness and shortness of breath. Cardiovascular: Positive for chest pain. Negative for palpitations and leg swelling. Gastrointestinal: Positive for nausea. Negative for abdominal distention and abdominal pain. Urge to have a BM. Endocrine: Negative. Genitourinary: Negative. Negative for dysuria and flank pain. Musculoskeletal: Positive for myalgias and neck pain. Negative for arthralgias. Skin: Negative. Negative for color change and rash. Allergic/Immunologic: Negative. Negative for immunocompromised state. Neurological: Positive for dizziness and light-headedness. Negative for headaches. Near syncope. Hematological: Negative. Negative for adenopathy. Does not bruise/bleed easily. Psychiatric/Behavioral: Negative. Negative for confusion. All other systems reviewed and are negative. The patient's past medical, family and social history was reviewed and updated as needed. Allergies Allergen Reactions ??? Keflex [Cephalexin] Nausea And Vomiting Vital Signs Temp: 37.1 ??C (98.7 ??F) Temp src: Tympanic Pulse: 87 Heart Rate: 72 BPM Cardiac Rhythm: Normal sinus rhythm Resp: 18 SpO2: 96 % BP: 128/79 BP MAP: 92 mm Hg BP Device: BP Machine Patient Position: Sitting BP Cuff Location: Right arm O2 Device: None (Room air) Physical Exam Constitutional: He is oriented to person, place, and time. He appears well- developed and well-nourished. No distress. The patient is an obese, pale, male in no acute distress. HENT: Head: Normocephalic and atraumatic. Eyes: Conjunctivae and EOM are normal. Pupils are equal, round, and reactive to light. Right eye exhibits no discharge. Left eye exhibits no discharge. Neck: Normal range of motion. Neck supple. No tracheal deviation present. Cardiovascular: Normal rate, regular rhythm, normal heart sounds and intact distal pulses. No murmur heard. Pulmonary/Chest: Effort normal and breath sounds normal. No respiratory distress. He has no wheezes. Abdominal: Soft. Bowel sounds are normal. He exhibits no distension. There is no tenderness. Obese abdomen. Musculoskeletal: Normal range of motion. He exhibits no edema. He has no lower extremity edema. Neurological: He is alert and oriented to person, place, and time. He exhibits normal muscle tone. Skin: Skin is warm and dry. No rash noted. There is pallor. Psychiatric: He has a normal mood and affect. Nursing note and vitals reviewed. RESULTS EKG orders: EKG 12-LEAD HOLTER MONITOR ECG Reviewed: Findings include: Normal sinus rhythm rate of 84 bpm. The study has been independentlyviewed by me. The study has been interpreted independently and contemporaneously by me. The EKG appears to be a good tracing. Attending senior it auditor not immediately available for acute interpretation. Radiology orders: None ED Lab Results Labs Reviewed PROFILE ED CARDIAC PACK - Abnormal Result Value Status Glucose, Screening 104 (*) Final Sodium 139 Final Potassium 4.1 Final Chloride 104 Final CO2 28 Final BUN 13 Final Creatinine 0.90 Final GFR, Calculated 107 Final Magnesium 2.1 Final WBC 8.63 Final RBC 5.00 Final Hemoglobin 14.1 Final HCT 41.3 Final MCV 83 Final MCH 28.2 Final MCHC 34.1 Final RDW-CV 13.4 Final RDW-SD 40.0 Final PLT 292 Final MPV 9.8 Final Neutrophils 58.3 Final Lymphocytes 31.5 Final Monocytes 6.7 Final Eosinophils 2.0 Final Basophils 0.9 Final Immature Grans 0.6 Final ABS Neutrophils 5.03 Final ABS Lymphs 2.72 Final ABS Monocytes 0.58 Final ABS Eosinophils 0.17 Final ABS Basophils 0.08 Final ABS Immature Grans 0.05 Final Type of Diff: Automated Final Troponin I <0.034 Final Hold Blue Top Final Value: Sample for coagulation will be discarded after 4 hours TSH TSH 1.71 Final POCT URINE DIPSTICK Color YELLOW Final Clarity, UA Clear Final Glucose Neg Final Bilirubin Neg Final Ketones Neg Final Specific [place] <=1.005 Final Blood Neg Final pH 6.0 Final Protein Neg Final Urobilinogen 0.2 Final Nitrite Neg Final Leuk Esterase Neg Final Tech ID [id number] Final Relevant Data Procedures ED COURSE A medical screening exam was performed. The patient is a 41 y.o. male with no significant past medical history who presents to the ED with one month of dizziness and light headedness episodes, and tonight had an episode of near syncope. The patient is an obese, pale male in no acute distress. He has a regular rate and rhythm with an obese abdomen that is soft and non tender. He has no lower extremity edema. His skin has pallor and dryskin. Multiple etiologies were considered for this patient's symptoms including arrhythmia, thyroid disorder, anemia or anxiety. Patient had labs that were reviewed independently by myself, significant for a negative troponin, urinalysis without evidence of infection. His electrolytes are normal, he has normal renal function suzie reassuring normal WBC of 8.63. His glucose was mildly elevated at 104. Discussed with the patient that his laboratory tests were normal today, and I feel comfortable with the plan for discharge. I recommended that given these recent episodes that a Holter monitor be obtained. He was discharged to home, I placed an order for a Holter monitor and he will follow up with hisPCP. ASSESSMENT AND PLAN Final diagnoses: Dizziness, nonspecific Intermittent palpitations DISPOSITION: Discharged The patient's pain was managed to an adequate level weighing risk vs. benefit of further medications. Upon departure from the Emergency Department, the patient's pain was 0 on a zero to ten scale. Condition at departure from the Emergency Department: Improved PCP: Pamela FINCH This documentation is recorded by Rob García acting as Scribe under the direction and presence of Audelia Gonzales MD. Audelia Gonzales MD: I personally performed the services recorded by the scribe in my presence. I confirm the scribe's documentation has been reviewed by me to accurately and completely record my work, treatment, procedures, and medical decision making. 12/03/2016 20:16 No flowsheet data found. documented in this encounter Plan of Treatment Upcoming Encounters Date Type Specialty Care Team Description 05/08/2022 Telemedicine Sleep Medicine El Sinclair Jr., MD [address] [place] [address] [address] [place], [place] [address] (Wo rk) documented as of this encounter Procedures Procedure Name Priority Date/Time Associated Diagnosis Comme nts ECG REPORT - 12/08/2016 10:55 SCANNED EDT POCT URINE STAT 12/02/2016 19:48 Results for this DIPSTICK, CLINITEK EDT procedure are in the results section. PROFILE ED CARDIAC STAT 12/02/2016 19:39 Resul ts for this PACK EDT procedure are i n the results section. TSH STAT 12/02/2016 19:39 Results for this EDT procedure are i n the results section. EKG 12-LEAD STAT 12/02/2016 19:19 Results for this EDT procedure are i n the results section. documented in this encounter Results HOLTER MONITOR (12/07/2016 14:00 EDT) Specimen Narrative [facility] EKG - 12/14/2016 17:1 2 EDT ? [facility] ? Test Date: ?2016-12-07 Pat Name: ? YOLANDA KO ? Department: ?? TI ? Room: ? Gender: ?Cut Off Sawyer Log: ?? DC : ?1975 ? Requested By: JACK Martin Order Number: [id number] ? Reading : ?? PRAMOD OROSCO MD ? Interpretive Statements [...] Note Pramod Orosco MD - 12/14/2016 [facility] Test Date: 2016-12-07 Pat Name: YOLANDA KO Department: TI Room: Gender: Cut Off Sawyer Log: RUBEN : 1975 Requested By: JACK Martin Order Number: [id number] Reading MD: Radha OROSCO MD Interpretive Statements 48 [...] Organization Address City/State/ZIP Code Phon e Number [facility] EKG POCT URINE DIPSTICK (12/02/2016 19:48 EDT) Color YELLOW [facility] SERVICES Clarity, UA Clear [facility] Glucose Neg Neg [facility] Bilirubin Neg Neg [facility] Ketones Neg Neg [facility] Specific [place] <=1.005 1.001 - 1.035 [facility] Blood Neg Neg [facility] pH 6.0 4.6 - 8.0 [facility] Protein Neg Neg [facility] Urobilinogen 0.2 0.2 - 1.0 [facility] E.U./dl LABORATORY SERVICES Nitrite Neg Neg [facility] SERVICES Leuk Esterase Neg Neg [facility] combination saw operator ID [id number]: [facility] Test performed at LABORATORY Emergency SERVICES Department Specimen Urine (substance) - Urine Performing Organization Address City/State/ZIP Code Phon e Number [facility] [address] [place] [address] SERVICES TSH (12/02/2016 19:39 EDT) Pathologist Sig nature TSH 1.71 0.55 - 4.78 uIU/ml [facility] SERVICES Specimen Blood specimen (specimen) - Blood Performing Organization Address City/[facility]/ZIP Code Phon e Number [facility] [address] [place] [address] SERVICES (ABNORMAL) PROFILE ED CARDIAC PACK (12/02/2016 19:39 EDT) Sodium 139 136 - 145 [facility] mEq/L [place] [facility] Potassium 4.1 3.5 - 5.0 [facility] mEq/L [place] [facility] Chloride 104 96 - 110 [facility] mEq/L [place] [facility] CO2 28 22 - 32 [facility] mEq/L [place] [facility] BUN 13 10 - 26 [facility] mg/dl [place] [facility] Creatinine 0.90 0.66 - 1.25 [facility] mg/dl [place] [facility] SERVICES GFR, Calculated 107 >60 [facility] Comment: ml/min/1.73m [place] [facility] eGFR calculated using CKD-EPI equation for 2 SERVICES non Americans. Multiply eGFR by 1.16 for Americans. Magnesium 2.1 1.7 - 2.8 [facility] mg/dl [place] [facility] SERVICES WBC 8.63 4.0 - 10.4 [facility] K/cmm [facility] RBC 5.00 4.36 - 5.78 [facility] M/cmm [place] [facility] Hemoglobin 14.1 13.8 - 17.3 [facility] gm/dl [facility] HCT 41.3 39.5 - 50.2 [facility] % [place] [facility] MCV 83 81 - 95 fl [facility] MCH 28.2 27.6 - 33.0 [facility] pg [facility] MCHC 34.1 32.8 - 36.4 [facility] gm/dl [place] [facility] RDW-CV 13.4 11.8 - 14.1 [facility] RDW-SD 40.0 36.5 - 45.9 [facility] LABORATORY SERVICES PLT [phone] [facility] LABORATORY SERVICES MPV 9.8 9.5 - 12.7 [facility] LABORATORY SERVICES Neutrophils 58.3 % [facility] Lymphocytes 31.5 % [facility] Monocytes 6.7 % [facility] Eosinophils 2.0 % [facility] Basophils 0.9 % [facility] Immature Grans 0.6 % [facility] ABS Neutrophils 5.03 2.20 - 8.85 [facility] LABORATORY SERVICES ABS Lymphs 2.72 1.09 - 3.30 [facility] LABORATORY SERVICES ABS Monocytes 0.58 0.1 - 0.8 [facility] LABORATORY SERVICES ABS Eosinophils 0.17 0.03 - 0.61 [facility] LABORATORY SERVICES ABS Basophils 0.08 0.01 - 0.11 [facility] LABORATORY SERVICES ABS Immature Grans 0.05 0 - 0.06 [facility] LABORATORY SERVICES Type of Diff: Automated [facility] SERVICES Troponin I (ng/mL) <0.034 <0.034 ng/ml [facility] SERVICES Glucose, Screening 104 (H) 70 - 100 [facility] mg/dl [place] [facility] Hold Blue Top Sample for [facility] coagulation will be [facility] discarded after 4 SERVICES hours Specimen Blood specimen (specimen) - Blood Performing Organization Address City/State/ZIP Code Phon e Number [facility] [address] [place] [address] SERVICES EKG 12-LEAD (12/02/2016 19:19 EDT) Specimen Narrative [facility] EKG - 12/06/2016 6:46 EDT ?[facility] Emergency ? Test Date: ?2016-12-02 Pat Name: ? YOLANDA KO ? Department: ?? ED ? Room: ? AC05 Gender: ? M ?Cut Off Sawyer Log: ?? [id number] : ?1975 ? Requested By: JACK Martin Order Number: [id number] ? Reading MD: ?? LEON ELLIS MD ? Measurements Intervals ?[place] ? Rate: ? 84 ? P: ?0 WI: ? 166 ?QRS: ?34 QRSD: ? 91 ? T: ?44 QT: ? 380 ? QTc: ?450 ? Interpretive Statements SINUS RHYTHM LOW QRS VOLTAGE IN PRECORDIAL LEADS Compared to ECG 10/22/2016 18:07:54 No significant changes I reviewed the tracing and have either a greed or edited the findings in this report. Electronically Signed On 06:46:40 EDT by LEON ELLIS MD. Procedure Note Leon Ellis MD - 12/06/2016 [facility] Emergency Test Date: 2016-12-02 Pat Name: YOLANDA KO Department: ED Room: [facility] Gender: M Cut Off Sawyer Log: [id number] : 1975 Requested By: JACK Martin Order Number: [id number] Reading MD: Mario ELLIS MD Measurements Intervals [place] Rate: 84 P: 0 WI: 166 QRS: 34 QRSD: 91 T: 44 QT: 380 QTc: 450 Interpretive Statements SINUS RHYTHM LOW QRS VOLTAGE IN PRECORDIAL LEADS Compared to ECG 10/22/2016 18:07:54 No significant changes I reviewed the tracing and have either a greed or edited the findings in this report. Electronically Signed On 06:46:40 EDT by LEON ELLIS MD. Performing Organization Address City/State/ZIP Code Phon e Number [facility] EKG documented in this encounter Visit Diagnoses Diagnosis Dizziness, nonspecific - Primary Dizziness and giddiness Intermittent palpitations Dizziness, nonspecific Dizziness and giddiness Intermittent palpitations documented in this encounter Orders Procedures Count Last Ordered Date First Ordered Date ECG REPORT - SCANNED 1 12/08/2016 Nursing Count Last Ordered Date First Ordered Date INSERT PERIPHERAL IV 1 12/02/2016 documented in this encounter Care Teams Metal Cleaner Relationship Specialty Start Date End Date Pamela Petty MD PCP - General 10/07/15 02/08/20 [address] [place] [address] documented as of this encounter
--- OUTSIDE RECORDS SUMMARY | 2022-03-21 09:36 | XMS_ITS | Encounter Summary ---
:1975 Author Organization [facility] Address [address] [place] [address] Care Team Providers Name Role Phone Pamela Petty MD Primary Care Provider Unknown, Provider Primary Care Provider Jessica Morgan DO, Ernesto Primary Care Provider Reason for Visit Reason Onset Date Comments DME 07/08/2018 Encounter Details Date Type Department Care Team Description 07/08/2018 Telephone [facility] [place] DME Program - [facility] [address] [place], [place] [id number] [place] [phone] (Wo rk) Social History Tobacco Use [...] this encounter Miscellaneous Notes Telephone Encounter - Evelyn Steiner - 07/08/2018 1246 EDT Patient called to check on his next appt with Dr. Sinclair. Patient is having a problem with the air coming through his mask and hitting his back teeth causing irritation. Asked patient if he would like to receive a call back from [email or web address] and he said he would just keep his appt and speak with his Doctor on Jul 19. documented in this encounter Plan of Treatment Upcoming Encounters Date Type Specialty Care Team Description 05/08/2022 Telemedicine Sleep Medicine El Sinclair Jr., MD [address] [place] [address], [address] [place] [address] (Wo rk) documented as of this encounter Visit Diagnoses Not on filedocumented in this encounter Care Teams Robotics Software Engineer Relationship Specialty Start Date End Date Pamela Petty MD PCP - General 10/07/15 02/08/[address] [place] [id number] Hasmukh, MD Lia PCP - General 03/05/20 10/21/20 Jj Lopez Jr., PCP - General 10/22/[address] [place] [id number] documented as of this encounter
--- OUTSIDE RECORDS SUMMARY | 2022-03-21 09:36 | XMS_ITS | Encounter Summary ---
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 Impression: Findings are concerning for anterior lef t shoulder dislocation. Postreduction radiographs will be helpfu l to evaluate for associated fractures. Procedure Note Rod Mendoza MD - 05/11/2017 SHOULDER 2 OR MORE VIEWS 05/11/2017 6:56 P M Signs and symptoms: Accidental Fall eval uate for fracture Comparison: 03/29/2016 Findings: 3 views of the left shoulder were obtain ed. No fracture is identified. The left luz elena ohumeral joint appears to be dislocated with the humeral head anterio rly displaced relative to the glenoid. Impression: Findings are concerning for anterior lef t shoulder dislocation. Postreduction radiographs will be helpfu l to evaluate for associated fractures. Performing Organization Address City/State/ZIP Code Phon e Number [facility] RAD[facility] MAIN [place] documented in this encounter Visit Diagnoses Diagnosis Shoulder dislocation, left, initial enco unter - Primary Abrasions of multiple sites Abrasion or friction burn of other, mult iple, and unspecified sites, without mention of infection documented in this encounter Administered Medications Inactive Administered Medications - up to 3 most recent administrations Medication Order MAR Action Action Date Dose Rate Site ibuprofen (MOTRIN) tablet 600 mg Given 05/11/2017 18:41 EDT 600 mg 600 mg, oral, NOW X1, 1 dose, On Sun05/11/17 at 1830, STAT lidocaine (XYLOCAINE) 2 % jelly 1 dose, Starting on Sun05/11/17 at 1901, Until Sun at 2301 propOFol (DIPRIVAN) 10 mg/mL injection 1 dose, Starting on Sun05/11/17 at 1940, Until Sun at 2301 propOFol (DIPRIVAN) 10 mg/mL injection 1 dose, Starting on Sun05/11/17 at 1951, Until Sun at 2301 documented in this encounter Active and Recently Administered Medications Times are shown in EDT. Scheduled Medication Order 05/09/2017 05/10/2017 05/11/2017 ibuprofen (MOTRIN) tablet 600 mg (COMPLETED) 1841 (Given - Provider: Sarai Figueroa RN) 600 mg, oral, NOW X1, 1 dose, Sun05/11/17 at 1830, STAT No Frequency Medication Order 05/09/2017 05/10/2017 05/11/2017 lidocaine (XYLOCAINE) 2 % jelly 1 dose, Starting Sun05/11/17 at 1901, Until Discontinued propOFol (DIPRIVAN) 10 mg/mL injection 1 dose, Starting Sun05/11/17 at 1940, Until Discontinued propOFol (DIPRIVAN) 10 mg/mL injection 1 dose, Starting Sun05/11/17 at 1951, Until Discontinued documented in this encounter Orders Medications Ordered That Might Not Have Count Last Ord ered Date First Ordered Date Been Administered ibuprofen (MOTRIN) tablet 600 mg 1 05/11/2017 lidocaine (XYLOCAINE) 2 % jelly 1 05/11/2017 propOFol (DIPRIVAN) 10 mg/mL injection 2 7 documented in this encounter Care Teams Boning Room Worker Relationship Specialty Start Date End Date Pamela Petty MD PCP - General 10/07/15 02/08/20 [address] [place] [address] documented as of this encounter
--- OUTSIDE RECORDS SUMMARY | 2022-03-21 09:36 | XMS_ITS | Encounter Summary ---
:1975 Author Organization Address [address] [place] [address] Care Team Providers Name Role Phone Pamela Petty MD Primary Care Provider Reason for Visit Reason Comments Near Syncope Sudden onset of dizziness na usea x few hours, had similar episode last week too, denies any c/p no sob aox3 Encounter Details Date Type Department Care Team Description 10/22/2016 Emergency [facility] Ralph Nicole PA-C [address] [facility], [address] [place] [phone] Near syncope (Primary Emergency Department Montez Brown PA-C [address] [place] [address] [address] [place], [place] [address] Dx) - [facility] Emergency, MD Fabio [address] [place], [place] [id number] Social History Tobacco Use Types Packs/Day Years [...] Sign Reading Time Taken Comments Blood Pressure 128/71 10/22/20161999 EST Pulse 102 10/22/2016 1806 EST Temperature 36.7 ??C (98.1 ??F) 10/22/20162036 EST Respiratory Rate 11 10/22/20162019 EST Oxygen Saturation 100% 10/22/20162019 EST Inhaled Oxygen Concentration - - Weight 172.4 kg (380 lb) 10/22/2016 1806 EST Height 193 cm (6' 4) 10/22/2016 1806 EST Body Mass Index 46.26 10/22/2016 1806 EST documented in this encounter Functional Status [...] as of this encounter Discharge Diagnoses Diagnosis R55 Syncope and collapse-R55[ICD-10-CM] E66.01 Morbid (severe) obesity due to ex cess calories-E66.01[ICD-10-CM] documented in this encounter Discharge Instructions InstructionsRalph Nicole PA - 10/22/2016 Drink plenty of fluids follow-up with your doctor for further care AttachmentsThe following attachments cannot be sent through Care Everywhere. FAINTING (IRISH)LIGHTHEADEDNESS OR FAINTNESS (IRISH)documented in this encounter Discharge Disposition Disposition Code Departure Means Destination Home or Self Care documented in this encounter ED Notes Tawny Ugalde RN - 10/22/20162042 EST Pt in NAD at time of d/c, up to restroom with steady gait. Denies dizziness. Reviewed d/c instructions thoroughly with pt and advised him to follow up with his PCP. He verbalizes understanding. Montez Rodriguez PA - 10/22/20162037 EST This patient was signed out to me by Ralph Nicole. The patient had an episode of dizziness earlier today that has since resolved. He denies dizziness currently. EKG and labs are normal. The patient will follow up with his pcp this week. I advised returning if worsening dizziness or if any palpitations. heree Ashraf - 10/22/2016 2012 EST 1st liter of NS complete without complaints or complications. Ángel Maria RN - 10/22/2016 1948 EST Blood drawn via saline lock per protocol, tiger and purple tube(s) sent to lab per order. Ralph Nicole PA - 10/22/2016 1915 EST DOS: 10/22/2016 Chief Complaint Patient presents with ??? Near Syncope Sudden onset of dizziness nausea x few hours, had similar episode last week too, denies any c/p no sob aox3 HPI The patient is a 41 y.o. male who presents today with Near Syncope (Sudden onset of dizziness nauseax few hours, had similar episode last week too, denies any c/p no sob aox3 ) HPI Comments: 41-year-old male here for evaluation for near syncope. Patient states that he was standing up cooking when he developed sudden onset of nausea and dizziness states that he then went to the bathroom where he felt quite dizzy, had to defecate at that time, which did not relieve any of the symptoms. Denies bloody stools or diarrhea. Patient then had his call an ambulance. he states that he walked outside splashing water on his face and the cool air and states that he did not notice much of a difference symptoms lasted a total of 2-3 minutes. Similar symptoms occurred last week with less intensity while he was with his . There were no presyncopal symptoms he states he was feeling fine prior to this event. He also states that he feels completely back to normal at this time. denies any chest pain or palpitations The history is provided by the patient. Near Syncope Associated symptoms: dizziness, nausea and weakness Associated symptoms: no chest pain, no diaphoresis, no fever, no headaches, no palpitations, no seizures, no shortness of breath and no vomiting Review of Systems Review of Systems Constitutional: Negative for chills, diaphoresis, fatigue, fever and unexpected weight change. HENT: Negative for congestion and ear pain. Respiratory: Negative for cough, chest tightness, shortness of breath and wheezing. Cardiovascular: Positive for syncope. Negative for chest pain, palpitations and leg swelling. Gastrointestinal: Positive for nausea. Negative for abdominal distention, abdominal pain, constipation, diarrhea, rectal pain and vomiting. Musculoskeletal: Negative for arthralgias, back pain, gait problem, joint swelling, myalgias, neck pain and neck stiffness. Skin: Negative for color change, pallor, rash and wound. Neurological: Positive for dizziness, syncope (Near syncope), weakness and light-headedness. Negative for tremors, seizures, facial asymmetry, speech difficulty, numbness and headaches. The patient's past medical, family and social history was reviewed and updated as needed. Allergies Allergen Reactions ??? Keflex [Cephalexin] Nausea And Vomiting Vital Signs Vitals Reassessment?: Yes Temp: 36.7 ??C (98.1 ??F) Temp src: Oral Pulse: 102 Heart Rate: 88 BPM Cardiac Rhythm: Normal sinus rhythm Resp: 11 SpO2: 100 % BP: 128/71 BP MAP: 81 mm Hg BP Device: BP Machine Patient Position: Sitting BP Cuff Location: Right arm O2 Device: None (Room air) Physical Exam Constitutional: He is oriented to person, place, and time. He appears well- developed and well-nourished. Morbidly obese white male HENT: Head: Normocephalic and atraumatic. Right Ear: External ear normal. Left Ear: External ear normal. Nose: Nose normal. Eyes: Conjunctivae are normal. Pupils are equal, round, and reactive to light. Right eye exhibits nodischarge. Left eye exhibits no discharge. Neck: Normal range of motion. Neck supple. No tracheal deviation present. Cardiovascular: Normal rate, regular rhythm and normal heart sounds. Pulmonary/Chest: Effort normal and breath sounds normal. No respiratory distress. He has no wheezes.He has no rales. Abdominal: Soft. He exhibits no distension and no mass. There is no tenderness. There is no rebound and no guarding. Musculoskeletal: Normal range of motion. He exhibits no edema, tenderness or deformity. Neurological: He is alert and oriented to person, place, and time. He has normal strength. He is notdisoriented. No sensory deficit. Coordination normal. Skin: Skin is warm and dry. No rash noted. Psychiatric: He has a normal mood and affect. His behavior is normal. Nursing note and vitals reviewed. RESULTS EKG orders: EKG 12-LEAD ECG Reviewed: Findings include: normal EKG, normal sinus rhythm, unchanged from previous tracings, normal sinus rhythm. The study has been independently viewed by me. The study has been interpreted independently and contemporaneously by me. The EKG appears to be a good tracing. Attending photographer helper not immediately available for acute interpretation. Radiology orders: None ED Lab Results Labs Reviewed HEMAGRAM AND DIFFERENTIAL - Abnormal Result Value Status WBC 13.86 (*) Final ABS Neutrophils 10.35 (*) Final ABS Immature Grans 0.08 (*) Final RBC 5.24 Final Hemoglobin 15.1 Final HCT 44.6 Final MCV 85 Final MCH 28.8 Final MCHC 33.9 Final RDW-CV 13.4 Final RDW-SD 41.4 Final PLT 265 Final MPV 9.8 Final Neutrophils 74.6 Final Lymphocytes 17.7 Final Monocytes 5.5 Final Eosinophils 1.0 Final Basophils 0.6 Final Immature Grans 0.6 Final ABS Lymphs 2.45 Final ABS Monocytes 0.76 Final ABS Eosinophils 0.14 Final ABS Basophils 0.08 Final Type of Diff: Automated Final COMPREHENSIVE METABOLIC PANEL (CMP) Potassium 4.4 Final Sodium 140 Final Chloride 100 Final CO2 30 Final Total Alkaline Phosphatase 84 Final Bilirubin, Total <0.5 Final AST 22 Final ALT 44 Final Albumin 3.9 Final Total Protein 6.7 Final Creatinine 0.94 Final GFR, Calculated 102 Final BUN 18 Final Calcium 9.2 Final Calculated Calcium 9.3 Final Glucose, Serum 95 Final Fasting? Unknown Final Relevant Data Procedures ED COURSE A medical screening exam was performed. Patient was discussed with Dr. Usman Silva we reviewed the EKG labs were ordered and care was transferred to Montez Brown pending laboratory study evaluation prior to my discharge patient was reevaluated he remained asymptomatic at this time ASSESSMENT AND PLAN Final diagnoses: Near syncope Lab Results HEMAGRAM AND DIFFERENTIAL (Final result) Abnormal Component (Lab Inquiry) Collection Time Result Time WBC RBC Hemoglobin HCT MCV 10/22/16 19:30:00 10/22/16 19:48:23 (!) 13.86 (H) 5.24 15.1 44.6 85 Collection Time Result Time MCH MCHC RDW-CV RDW-SD PLT 10/22/16 19:30:00 10/22/16 19:48:23 28.8 33.9 13.4 41.4 265 Collection Time Result Time MPV Neutrophils Lymphocytes Monocytes Eosinophils 10/22/16 19:30:00 10/22/16 19:48:23 9.8 74.6 17.7 5.5 1.0 Collection Time Result Time Basophils Immature Grans ABS Neutrophils ABS Lymphs ABS Monocytes 10/22/16 19:30:00 10/22/16 19:48:23 0.6 0.6 (!) 10.35 (H) 2.45 0.76 Collection Time Result Time ABS Eosinophils ABS Basophils ABS Immature Grans Type of Diff: 10/22/16 19:30:00 10/22/16 19:48:23 0.14 0.08 (!) 0.08 (H) Automated COMPREHENSIVE METABOLIC PANEL (CMP) (Final result) Component (Lab Inquiry) Collection Time Result Time Potassium Sodium Chloride CO2 Total Alkaline Phosphatase 10/22/16 19:30:00 10/22/16 20:18:48 4.4 140 100 30 Note new reference range 06/27/16 84 Collection Time Result Time Bilirubin, Total AST ALT Albumin Total Protein 10/22/16 19:30:00 10/22/16 20:18:48 <0.5 22 44 3.9 6.7 Collection Time Result Time Creatinine GFR, Calculated BUN Calcium Calculated Calcium 10/22/16 19:30:00 10/22/16 20:18:48 0.94 102 eGFR calculated using CKD-EPI equation for non Americans. Multiply eGFR by 1.16 for Americans. 18 9.2 9.3 Note new formula for calculation in use 06/14/2016 Collection Time Result Time Glucose, Serum Fasting? 10/22/16 19:30:00 10/22/16 20:18:48 95 Unknown DISPOSITION: Discharged The patient's pain was managed to an adequate level weighing risk vs. benefit of further medications. Upon departure from the Emergency Department, the patient's pain was on a zero to ten scale. Condition at departure from the Emergency Department: PCP: Pamela Hicks was consulted and agrees with treatment plan. 11/15/2016 13:13 No flowsheet data found. Tawny Mazariegos RN - 10/22/2016 1814 EST 12 Lead EKG Performed by Tawny Ugalde RN and shown to Guzman Hicks MD. documented in this encounter Plan of Treatment Upcoming Encounters Date Type Specialty Care Team Description 05/08/2022 Telemedicine Sleep Medicine El Sinclair Jr., MD [address] [place] [address] [address] [place], [place] [phone] (Wo rk) documented as of this encounter Procedures Procedure Name Priority Date/Time Associated Comments Diagnosis ECG REPORT - SCANNED 10/25/2016 9:25 EST COMPLETE BLOOD COUNT STAT 10/22/2016 19:30 Res ults for this AND DIFFERENTIAL EST procedure a re in the results section. COMPREHENSIVE STAT 10/22/2016 19:30 Results fo r this METABOLIC PANEL (CMP) EST proced ure are in the results section. EKG 12-LEAD STAT 10/22/2016 18:07 Results for this EST procedure are i n the results section. documented in this encounter Results COMPREHENSIVE METABOLIC PANEL (CMP) (10/22/2016 19:30 EST) Potassium 4.4 3.5 - 5.0 [facility] mEq/L [facility] Sodium 140 136 - 145 [facility] mEq/L [facility] Chloride 100 96 - 110 [facility] mEq/L [facility] CO2 30Comment: Note new 22 - 32 [facility] reference range mEq/L [facility] 06/27/16 SERVICES Total Alkaline 84 38 - 126 U/L [facility] Phosphatase [facility] Bilirubin, Total <0.5 <1.4 mg/dl [facility] AST 22 15 - 46 U/L [facility] ALT 44 21 - 72 U/L [facility] Albumin 3.9 3.4 - 4.9 [facility] g/dl [facility] Total Protein 6.7 6.3 - 8.2 [facility] g/dl [facility] Creatinine 0.94 0.66 - 1.25 [facility] mg/dl [facility] GFR, Calculated 102 >60 [facility] Comment: ml/min/1.73m [facility] eGFR calculated using CKD-EPI equation for 2 SERVICES non Americans. Multiply eGFR by 1.16 for Americans. BUN 18 10 - 26 [facility] mg/dl [facility] Calcium 9.2 8.5 - 10.5 [facility] mg/dl [facility] Calculated Calcium 9.3 8.5 - 10.5 [facility] Comment: mg/dl [facility] Note new formula for calculation SERVICES in use 06/14/2016 Glucose, Serum 95 70 - 100 [facility] mg/dl [facility] Fasting? Unknown [facility] SERVICES Specimen Blood specimen (specimen) - Blood Performing Organization Address City/State/ZIP Code Phon e Number [facility] [address] [place] [address] SERVICES (ABNORMAL) HEMAGRAM AND DIFFERENTIAL (10/22/2016 19:30 EST) Pathologist Sig nature WBC 13.86 (H) 4.0 - 10.4 [facility]ORY SERVICES RBC 5.24 4.36 - 5.78 [facility] SERVICES Hemoglobin 15.1 13.8 - 17.3 [facility] gm/dl LABORATORY SERVICES HCT 44.6 39.5 - 50.2 % [facility] SERVICES MCV 85 81 - 95 fl [facility] MCH 28.8 27.6 - 33.0 pg [facility] SERVICES MCHC 33.9 32.8 - 36.4 [facility] gm/dl LABORATORY SERVICES RDW-CV 13.4 11.8 - 14.1 % [facility]ORY SERVICES RDW-SD 41.4 36.5 - 45.9 fl [facility]OR[facility]ORY SERVICES PLT 265 141 - 377 /[facility] LABORATORY SERVICES MPV 9.8 9.5 - 12.7 fl [facility] SERVICES Neutrophils 74.6 % [facility] SERVICES Lymphocytes 17.7 % [facility] SERVICES Monocytes 5.5 % [facility] SERVICES Eosinophils 1.0 % [facility] SERVICES Basophils 0.6 % [facility]ORY SERVICES Immature Grans 0.6 % [facility]ORY SERVICES ABS Neutrophils 10.35 (H) 2.20 - 8.85 [facility] LABORATORY SERVICES ABS Lymphs 2.45 1.09 - 3.30 [facility] LABORATORY SERVICES ABS Monocytes 0.76 0.1 - 0.8 /[facility] LABORATORY SERVICES ABS Eosinophils 0.14 0.03 - 0.61 [facility] LABORATORY SERVICES ABS Basophils 0.08 0.01 - 0.11 [facility] LABORATORY SERVICES ABS Immature Grans 0.08 (H) 0 - 0.[address] [facility] LABORATORY SERVICES Type of Diff: Automated [facility] SERVICES Specimen Blood specimen (specimen) - Blood Performing Organization Address City/State/ZIP Code Phon e Number [facility] [address] [place] [address] SERVICES EKG 12-LEAD (10/22/2016 18:07 EST) Specimen Narrative [facility] EKG - 10/24/2016 15:2 7 EST ?[facility] Emergency ? Test Date: ?2016-10-22 Pat Name: ? KO ? Department: ?? ED ? Room: ? GT33 Gender: ? M ?Full Service Vending Driver: ?? [id number] : ?1975 ? Requested By: BREANNA Ram Order Number: [id number] ? Reading MD: ?? EL PFEIFFER MD ? Measurements Intervals ?[place] ? Rate: ? 90 ? P: ?6 MI: ? 164 ?QRS: ?53 QRSD: ? 94 ? T: ?31 QT: ? 349 ? QTc: ?428 ? Interpretive Statements SINUS RHYTHM WITH SINUS ARRHYTHMIA Compared to ECG 04/23/2012 15:55:20 Sinus arrhythmia now present I reviewed the tracing and have either a greed or edited the findings in this report. Electronically Signed On 7 15:27:59 EST by EL PFEIFFER MD. Procedure Note El Pfeiffer MD - 10/24/2016 [facility] Test Date: 2016-10-22 Pat Name: BRIAN KO Department: ED Room: GT33 Gender: M Full Service Vending Driver: [id number] : 1975 Requested By: BREANNA PARK W Order Number: [id number] Reading MD: Gigi PFEIFFER MD Measurements Intervals [place] Rate: 90 P: 6 MI: 164 QRS: 53 QRSD: 94 T: 31 QT: 349 QTc: 428 Interpretive Statements SINUS RHYTHM WITH SINUS ARRHYTHMIA Compared to ECG 04/23/2012 15:55:20 Sinus arrhythmia now present I reviewed the tracing and have either a greed or edited the findings in this report. Electronically Signed On 15:27:59 EST by EL PFEIFFER MD. Performing Organization Address City/State/ZIP Code Phon e Number [facility] EKG documented in this encounter Visit Diagnoses Diagnosis Near syncope - Primary Syncope and collapse documented in this encounter Administered Medications Inactive Administered Medications - up to 3 most recent administrations Medication Order MAR Action Action Date Dose Rate Site sodium chloride 0.9 % BOLUS 1,000 New Bag 10/22/2016 19:49 EST 1,0 00 mL mL 1,000 mL, intravenous, NOW X1, 1 dose, On 10/22/16 at 1930, STAT documented in this encounter Active and Recently Administered Medications Times are shown in EST. Scheduled Medication Order 10/20/2016 10/21/2016 10/22/2016 sodium chloride 0.9 % BOLUS 1,000 mL (COMPLETED) 194 (New Bag - Provider: Ángel Jovel RN) 1,000 mL, intravenous, NOW X1, 1 dose, On 10/22/16 at 1930, S TAT documented in this encounter Orders Medications Ordered That Might Not Have Count Last Ord ered Date First Ordered Date Been Administered sodium chloride 0.9 % BOLUS 1,000 mL 1 10/22/2016 Procedures Count Last Ordered Date First Ordered Date ECG REPORT - SCANNED 10/25/2016 Nursing Count Last Ordered Date First Ordered Date INSERT PERIPHERAL IV 1 10/22/2016 documented in this encounter Care Teams Drier Feeder Relationship Specialty Start Date End Date Pamela Petty MD PCP - General 10/07/15 02/08/20 [address] [place] [address] documented as of this encounter
--- OUTSIDE RECORDS SUMMARY | 2022-03-21 09:36 | XMS_ITS | Encounter Summary ---
:1975 Author Organization [facility] Address [address] [place] [address] Care Team Providers Name Role Phone Pamela Petty MD Primary Care Provider Unknown, Provider Primary Care Provider Reason for Visit Reason Onset Date Comments Shoulder Injury 05/23/2017 Encounter Details Date Type Department Care Team Description 05/23/2017 Orders Only [facility] Shay Mccarthy [facility] Program giancarlo carl (Primary Dx) - Amarilis Wiggins [place], [place] [address] Social History Tobacco Use [...] Sleep Medicine El Sinclair Jr., MD [address] [facility], [address] [place], [place] [address] (Wo rk) documented as of this encounter Visit Diagnoses Diagnosis Acute pain of left shoulder - Primary documented in this encounter Orders Equipment Count Last Ordered Date First Ordered Date PADDED SLING - SLING/SWATHE (L3650) 1 05/23/2017 documented in this encounter Care Teams Soa Integration Architect Relationship Specialty Start Date End Date Pamela Petty MD PCP - General 10/07/15 02/08/20 [address] [place] [address] Unknown, Provider, PCP - General 03/05/20 10/21/20 documented as of this encounter
--- OUTSIDE RECORDS SUMMARY | 2022-03-21 09:36 | XMS_ITS | Encounter Summary ---
:1975 Author Organization [facility] Address [address] [place] [address] Care Team Providers Name Role Phone None, Provider Primary Care Provider Unavailable Encounter Details Date Type Department Care Team Description 01/22/2013 Hospital Encounter [facility] - Etienne Downey MD [address] [address] [address] [place] [phone] (Wo rk) Social History Tobacco Use Types Packs/Day Years Used Date Current Every Day Smoker 1 17 Smokeless Tobacco: Never Used Alcohol Use Standard Drinks/Week Comments Yes 0 (1 standard drink = 0.6 oz pure alcoho l) Sex Assigned at Date Recorded Not on file documented as of this encounter Medications at [...] Sleep Medicine El Sinclair Jr., MD 1 [facility], [address] [place], [place] [address] (Wo rk) documented as of this encounter Visit Diagnoses Not on filedocumented in this encounter Care Teams Colleter Relationship Specialty Start Date End Date None, Provider PCP - General 08/29/11 05/05/13 documented as of this encounter
--- OUTSIDE RECORDS SUMMARY | 2022-03-21 09:36 | XMS_ITS | Encounter Summary ---
:1975 Author Organization [facility] Address [address] [place] [address] Care Team Providers Name Role Phone Pamela Petty MD Primary Care Provider Reason for Visit Reason Comments Apnea Encounter Details Date Type Department Care Team Description 07/19/2018 Office Visit [facility] Yahir Damienlupis ADELAIDE (ob structive Sleep Program - S Beck Morgan MD sleep apnea) (Primary [place] [facility] Dx) 1 [facility], [address] [place] [address] [place] [phone] (Wo rk) Social History Tobacco Use Types [...] Sign Reading Time Taken Comments Blood Pressure 132/90 07/19/2018 1628 EST Pulse 85 07/19/2018 1628 EST Temperature - - Respiratory Rate 18 07/19/2018 1628 EST Oxygen Saturation 98% 07/19/2018 1628 EST Inhaled Oxygen Concentration - - Weight 177.8 kg (392 lb) 07/19/2018 1628 EST Height 193 cm (6' 4) 07/19/2018 1628 EST Body Mass Index 47.72 07/19/2018 1628 EST documented in this encounter Functional Status [...] encounter Progress Notes El Sinclair MD - 07/19/2018 1630 EST Subjective: Patient ID: Brian Ko is an 43 y.o. male seen in follow-up to discuss management of sleep disordered breathing. The patient has not been compliant with positive airway pressure therapy. This was verified with flow generator download covering a date range of June 12, 2018 through July 11, 2018. This reflected 50% use, 30% compliance, average use on days utilized 3 hours 44 minutes, median pressure 9.0 cmH2O, 95th percentile pressure 10.9 cm water, and maximum pressure of 11.9 cm water set on a range of 8-16 cm water. The median leak was 16.2 L/min and 95th percentile leak 46.4 L/min. Maximum leak was 66.0L/min. Patient had a residual AHI of 21.0 L/min of which the unknown AI was 17.1 likely impacted by previous mentioned elevated leak. The patient states that he sleeps less well with CPAP than without CPAP. He did sustain a dental injury which he states had made use of CPAP more difficult as reported upper airway dryness due to CPAP exacerbated dental discomfort. 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 Multiple options were discussed. The patient has only tried 2 separate fullface masks. A nasal pillows interface was recommended in order to optimize seal/diminish leak. The patient was informed that he may need a chinstrap to prevent air from leaking out of his mouth which could exacerbate upper airway dryness. Use of an oral moisturizing gel was also discussed. Review of Systems Constitutional: Negative for chills and fever. Respiratory: Negative for cough and shortness of breath. Cardiovascular: Negative for chest pain and palpitations. Gastrointestinal: Negative for nausea and vomiting. Psychiatric/Behavioral: Negative for depression and suicidal ideas. Objective: Physical Exam Constitutional: He is oriented to person, place, and time. He appears well- developed and well-nourished. Cardiovascular: Normal rate, regular rhythm and normal heart sounds. Exam reveals no gallop and no friction rub. No murmur heard. Pulmonary/Chest: Effort normal and breath sounds normal. He has no wheezes. He has no rhonchi. Neurological: He is alert and oriented to person, place, and time. Psychiatric: He has a normal mood and affect. His behavior is normal. Assessment: Obstructive sleep apnea with lack of compliance on positive airway pressure therapy. Elevated mask leak and oral dryness identified as likely contributing factors to less than optimal therapy usage. Dental injury also appears to have exacerbated impact of oral dryness. Recommendations: 1. An order will be generated for patient's [employer] company to fit patient with a nasal pillows interface, show him how to adjust the temperature on his heated humidifier to optimize comfort, and provide achinstrap. 2. Recommended patient use an [id number] oral gel to minimize upper airway dryness as needed. 3. Patient is to follow-up with dentist as needed for dental injury. 4. Patient declined to undergo adjustment to lower pressure setting of auto adjust device at this time. He was instructed to contact the office if he would like to have this pressure lowered or increased as the auto adjust feature of his flow generator will likely adequately control sleep disordered breathing. 5. 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 6. Patient will follow-up in 3-4 months with this physician or earlier as needed. 

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
--- OUTSIDE RECORDS SUMMARY | 2022-03-21 09:36 | XMS_ITS | Encounter Summary ---
:[address] [facility] Address [address] [place] [address] Care Team Providers Name Role Phone Galo Bello MD Primary Care Provider Reason for Visit Reason Comments Fall Fell down 8 steps, landing i n glass (pt was carrying a water glass).2 inch laceration to left leg. Leg with dressing in place at time of arrival. 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 Uns ure of tetanus status. Encounter Details Date Type Department Care Team Description 05/06/2013 Emergency [facility] Angelica Gonzales MD [address] [facility], Level 1 [place] [address] Ankle sprain (Primary Dx); Emergency Department Emergency, MD Fabio Ankle sprain and strain; - [facility] Laceration of leg, left; [address] [place] [address] Social History Tobacco Use Types [...] Sign Reading Time Taken Comments Blood Pressure 137/90 05/06/2013 0958 EDT Pulse 88 05/06/2013 1227 EDT Temperature 36.5 ??C (97.7 ??F) 05/06/2013 0958 EDT Respiratory Rate 14 05/06/2013 1227 EDT Oxygen Saturation 95% 05/06/2013 0958 EDT Inhaled Oxygen Concentration - - Weight 154.2 kg (340 lb) 05/06/2013 0957 EDT Height 193 cm (6' 4) 05/06/2013 0957 EDT Body Mass Index 41.39 05/06/2013 0957 EDT documented in this encounter Discharge Instructions InstructionsAudelia Gonzales MD - 05/06/2013 1. Return for suture removal in 1 week here or at your PCP's office. 2. FU with your PCP if you have continued ankle pain for possible orthopedist referal 3. Take Ibuprofen 800mg three times a day as needed for pain. AttachmentsThe following attachments cannot be sent through Care Everywhere.CARE OF WOUNDS CLOSED WITH STITCHES: AFTER YOUR VISIT ([place])documented in this encounter Medications at Time of Discharge Medication Sig Dispensed Refills Start Date End Date ibuprofen (MOTRIN) 600 mg Take 1 Tab by mouth 30 Tab 0 0 04/23/2012 03/29/2016 tablet 3 times daily. ibuprofen (MOTRIN) 800 mg Take 1 Tab by mouth 20 Tab 0 0 05/06/2013 09/27/2015 tablet 3 times daily. documented as of this encounter Ordered Prescriptions Prescription Sig Dispensed Refills Start Date End Date ibuprofen (MOTRIN) 800 mg Take 1 Tab by mouth 20 Tab 0 0 05/06/2013 09/27/2015 tablet 3 times daily. documented in this encounter Discharge Disposition Disposition Code Departure Means Destination Home or Self Care Car Home documented in this encounter ED Notes Audelia Gonzales MD - 05/06/2013 1020 EDT DOS: 05/06/2013 Chief Complaint Patient presents with ??? Fall Fell down 8 steps, landing in glass (pt was carrying a water glass).2 inch laceration to left leg. Leg with dressing in place at time of arrival. 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 The patient is a 38 y.o. 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 Also right ankle pop now pain, unable to bear weight. Abrasionto left elbow. Tetanus status unknown. The history is provided by the patient. Fall Pertinent negatives include no fever, no abdominal pain and no headaches. Review of Systems Constitutional: Negative for fever and chills. HENT: Negative for neck stiffness. Eyes: Negative for visual disturbance. Respiratory: Negative for shortness of breath. Cardiovascular: Negative for chest pain. Gastrointestinal: Negative for abdominal pain. Genitourinary: Negative for dysuria. Musculoskeletal: Negative for back pain. Skin: Negative for rash. Neurological: Negative for headaches. Psychiatric/Behavioral: Negative for confusion. All other systems reviewed and are negative. 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 External auditory canal reconstruction Allergies Allergen Reactions ??? Keflex (Cephalexin) Nausea And Vomiting History Substance Use Topics ??? Smoking status: Current Everyday Smoker -- 1.0 packs/day for 17 years ??? Smokeless tobacco: Never Used ??? Alcohol Use: Yes occasionally No family history on file. Vital Signs Temp: 36.5 ??C (97.7 ??F) Temp src: Tympanic Pulse: 98 Resp: 14 SpO2: 95 % SpCO: 2 % BP: 137/90 mmHg BP Device: BP Machine Patient Position: Sitting BP Cuff Location: Left arm O2 Device: None (Room air) Physical Exam Nursing note and vitals reviewed. Constitutional: He appears well-developed and well-nourished. HENT: Head: Normocephalic and atraumatic. Right Ear: External ear normal. Left Ear: External ear normal. Nose: Nose normal. Eyes: Pupils are equal, round, and reactive to light. Right eye exhibits no discharge. Left eye exhibits no discharge. Neck: Normal range of motion. Neck supple. No tracheal deviation present. Cardiovascular: Normal rate, regular rhythm and normal heart sounds. Pulmonary/Chest: Effort normal and breath sounds normal. No respiratory distress. Abdominal: Soft. He exhibits no mass. There is no tenderness. There is no rebound and no guarding. Musculoskeletal: Normal range of motion. Right ankle without bone tenderness, pain with both eversion and inversion. N/V intact Neurological: He is alert. He has normal strength. He is not disoriented. No sensory deficit. Skin: Skin is warm and dry. No rash noted. Left LE 4 cm laceration, curvilinear, with skin flap Psychiatric: He has a normal mood and affect. ANKLE 3 OR MORE VIEWS (Results Pending) Radiology orders: ANKLE 3 OR MORE VIEWS Imaging Results None Procedures ED Course: A medical screening exam was performed. Patient had x-ray of the right ankle performed which does not show evidence of fracture. His left alert somebody laceration was repaired with 8 simple interrupted suture please refer to suture note. I was physically present and involved with the laceration repair that was performed by myself and the medical student. The patient received a tetanus booster, and ibuprofen for pain control and was given a cane prior to discharge and instructed to return for sutureremoval as well as PCP reevaluation of his ankle in one week. Laceration Repair Date/Time: May 06, 2013 1130 Performed by: Mika Gonzales Authorized by: Janet Brennan Consent: Verbal consent obtained. Risks and benefits: risks, benefits and alternatives were discussed Consent given by: patient Patient understanding: patient states understanding of the procedure being performed Patient consent: the patient's understanding of the procedure matches consent given Procedure consent: procedure consent matches procedure scheduled Imaging studies: imaging studies were notavailable Required items: required blood products, implants, devices, and special equipment available Patient identity confirmed: verbally with patient and arm band Time out: Immediately prior to procedure a time out was called to verify the correct patient, procedure, equipment, it support specialist and site/side marked as required. Laceration location: Laceration length: 5cm Foreign bodies: absentTendon involvement: none Nerve involvement: none Vascular damage: no Anesthesia: 3cc local Local anesthetic:1/2 1%lidocaine and 1/2 .55 bupivicaine with epi. Anesthetic total: 3ml Patient sedated: no Preparation: Patient was prepped and draped in usual sterile fashion. Irrigation solution: saline Irrigation method: mechanical. Amount of cleaning: standard Debridement: none Degree of undermining: none Skin closure: dermal Number of sutures:8 Technique: simple interrupted Approximation: close Approximation difficulty: moderate Patient tolerance: Patient tolerated the procedure well with no immediate complications. Disposition: Discharged The patient's pain was managed to an adequate level weighing risk vs. benefit of further medications. Upon departure from the Emergency Department, the patient's pain was 0 on a zero to ten scale. Condition at departure from the Emergency Department: Good Discharge Prescriptions New Prescriptions IBUPROFEN (MOTRIN) 800 MG TABLET Take 1 Tab by mouth 3 times daily. MDM Number of Diagnoses or Management Options Diagnosis management comments: 4 Amount and/or Complexity of Data Reviewed Tests in the radiology section of CPT??: ordered and reviewed Discussion of test results with the performing providers: yes Obtain history from someone other than the patient: yes Discuss the patient with other providers: yes Final diagnoses: Ankle sprain Ankle sprain and strain Laceration of leg, left Fall down stairs PCP: Galo Bello MD 05/06/2013 12:01 documented in this encounter Miscellaneous Notes Scanned Note-Null - ON SITE WASTEWATER SYSTEMS TECHNICIAN, SCAN 2 - 05/13/2013 1419 EDT documented in this encounter Plan of Treatment Upcoming Encounters Date Type Specialty Care Team Description 05/08/2022 Telemedicine Sleep Medicine El Sinclair Jr., MD [address] [facility], Level 2 [place], [place] [address] (Wo rk) documented as of this encounter Procedures Procedure Name Priority Date/Time Associated Diagnosis Comme nts ANKLE 3 OR MORE STAT 05/06/2013 10:48 Results for this VIEWS EDT procedure are i n the results section. documented in this encounter Results ANKLE 3 OR MORE VIEWS (05/06/2013 10:48 EDT) Anatomical Region Laterality Modality Other Specimen Narrative [facility] - 05/06/2013 14:11 EDT ANKLE 3 OR MORE VIEWS ??05/06/2013 10:48 AM Signs and Symptoms/Comments: ??FALL; Rig ht ankle pain per Dr. Gonzales[place] 05/06/2013 Comparison: None available. Findings: AP, lateral, and oblique radiographs of the right ankle were obtained. There is no evidence of fractu re or dislocation. There is soft tissue swelling over the right ankl e more pronounced over the medial malleolus. Note is made of an os trigonum accessory ossicle. Impression: Soft tissue swelling of the right ankle. No acute osseous injury identified. ?? I have personally reviewed the images an d the above interpretation and agree with the findings. Procedure Note Conor Flores MD - 05/06/2013 ANKLE 3 OR MORE VIEWS 05/06/2013 10:48 AM Signs and Symptoms/Comments: FALL; Right ankle pain per Dr. Gonzales[facility] 05/06/2013 Comparison: None available. Findings: AP, lateral, and oblique radiographs of the right ankle were obtained. There is no evidence of fractu re or dislocation. There is soft tissue swelling over the right ankl e more pronounced over the medial malleolus. Note is made of an os trigonum accessory ossicle. Impression: Soft tissue swelling of the right ankle. No acute osseous injury identified. I have personally reviewed the images an d the above interpretation and agree with the findings. Performing Organization Address City/State/ZIP Code Phon e Number [facility] documented in this encounter Visit Diagnoses Diagnosis Ankle sprain - Primary Sprain of ankle, unspecified site Ankle sprain and strain Sprain of ankle, unspecified site Laceration of leg, left Multiple and unspecified open wound of l ower limb, without mention of complication Fall down stairs Accidental fall on or from other stairs or steps documented in this encounter Administered Medications Inactive Administered Medications - up to 3 most recent administrations Medication Order MAR Action Action Date Dose Rate Site ibuprofen (MOTRIN) tablet 800 mg Given 05/06/2013 11:59 EDT 800 mg 800 mg, oral, NOW X1, 1 dose, On Sun05/06/13 at 1215, STAT documented in this encounter Active and Recently Administered Medications Times are shown in EDT. Scheduled Medication Order 05/04/2013 05/05/2013 05/06/2013 ibuprofen (MOTRIN) tablet 800 mg (COMPLETED) 1159 (Given - Provider: Steve Rodgers RN) 800 mg, oral, NOW X1, 1 dose, Sun05/06/13 at 1215, STAT documented in this encounter Orders Medications Ordered That Might Not Have Count Last Ord ered Date First Ordered Date Been Administered ibuprofen (MOTRIN) tablet 800 mg 1 05/06/2013 documented in this encounter Care Teams Enrobing Machine Corder Relationship Specialty Start Date End Date Galo Bello MD PCP - General 05/06/13 10/06/[address] [address] documented as of this encounter
--- OUTSIDE RECORDS SUMMARY | 2022-03-21 09:36 | XMS_ITS | Encounter Summary ---
:1975 Author Organization [facility] Address [address] [place] [address] Care Team Providers Name Role Phone Pamela Petty MD Primary Care Provider Encounter Details Date Type Department Care Team Description 10/11/2015 Hospital Encounter [facility] Praful Simons Perioperative Services- MD [address] [phone] [address] Social History Tobacco Use Types Packs/Day [...] - Inhaled Oxygen Concentration - - Weight 172.4 kg (380 lb) 09/27/2015 1113 EST Height 193 cm (6' 4) 09/27/2015 1113 EST Body Mass Index 46.26 09/27/2015 1113 EST documented in this encounter Functional Status [...] or Self Care documented in this encounter Progress Notes Lachelle Wilson, MELODY - 10/11/2015 1320 EST Pt arrived to preop, his ride can not drive at night, pt didn't realize he wouldn't be done until 4 pm, and then need to recover in PACU for awhile, which would be too late for his driver wheelchair. So pt left for home before we admitted him, IV never started. Pt aware to f/u with Dr. Simons's office to reschedule surgery. Aurora Castrejon RN - 09/27/2015 1147 EST Brian Ko has been instructed as follows regarding medication administration for the day of the scheduled procedure. Date of Surgery: 10/11/15 Instructions for Taking Medications Day of Surgery Medication Sig Last Dose Hold DOS Take DOS ibuprofen (MOTRIN) 600 mg tablet Take 1 Tab by mouth 3 times daily. Patient taking differently: Take 600 mg by mouth every 8 hours as needed One week preop X documented in this encounter Plan of Treatment Upcoming Encounters Date Type Specialty Care Team Description 05/08/2022 Telemedicine Sleep Medicine El Sinclair Jr., MD [address] [place] [address], [address] [place], [place] [address] (Wo rk) documented as of this encounter Visit Diagnoses Not on filedocumented in this encounter Discontinued Medications Medication Sig Discontinue Reason Start Date End Date ibuprofen (MOTRIN) 800 mg Take 1 Tab by mouth Error 05/06/20 13 09/27/2015 tablet 3 times daily. documented as of this encounter Care Teams Service Desk Associate Relationship Specialty Start Date End Date Pamela Petty MD PCP - General 10/07/15 02/08/20 [address] [place] [address] documented as of this encounter
--- OUTSIDE RECORDS SUMMARY | 2022-03-21 09:36 | XMS_ITS | Encounter Summary ---
:1975 Author Organization [facility] Address [address] [place] [address] Care Team Providers Name Role Phone Pamela Petty MD Primary Care Provider Reason for Visit Reason Comments Shoulder Pain Prior Authorization (Routine) - Specialty Report Received Specialty Diagnoses / Procedures Referred By Contact Refer red To Contact Diagnoses Left shoulder pain, unspecified chronicity Guzman Dash MD [address] [place] [phone] Referral ID Status Reason Start Expiration Visits Visits Date Date Requested Authorized [id number] Specialty Specialty 10/08/2017 1 1 Report Services Received Required Encounter Details Date Type Department Care Team Description 10/11/2017 Office Visit [facility] Guzman Dash [facility] Sports Medicine MD Michael shoulder (Primary Dx) Program - [address] [place], [facility] [phone] [phone] Social History Tobacco Use Types Packs/Day Years [...] - - Weight 170.1 kg (375 lb) 10/11/2017 1439 EST Height 193 cm (6' 4) 10/11/2017 1439 EST Body Mass Index 45.65 10/11/2017 1439 EST documented in this encounter Functional Status [...] documented as of this encounter Progress Notes Queta Nielson - 10/11/20171419 EST I. Patient is here for an US guided injection- Lidocaine 2% 20 mg/mL 3cc 1. Med given in left shoulder 2. Med lot number: [id number] [facility] number: [id number] 3. Exp date: 04/28 Instruction Assistant Principal: [employer] I. Patient is here for an US guided injection- Lidocaine 2% 20 mg/mL 3cc 1. Med given in left shoulder 2. Med lot number: [id number] [facility] number: [id number] 3. Exp date: 04/28 Instruction Assistant Principal: [employer] I. Patient is here for an US guided injection -Bupivacaine 0.5 % 50mg/10mL 3cc 1. Med given in left shoulder 2. Med lot number: [id number] [facility] number: [id number] 3. Exp date: 06/28 Instruction Assistant Principal: [employer] I. Patient is here for US guided injection- Kenalog 40 200mg/5mL 2cc 1. Med given in left shoulder 2. Med lot number: [id number] [facility] number: [id number] 3. Exp date: 09/28 Instruction Assistant Principal: [employer] Queta Nielson Guzman Montgomery MD - 10/11/2017 1420 EST Chief Complaint Patient presents with ??? Shoulder Pain SUBJECTIVE: Brian Ko is a 42 y.o. male who present for a ultrasound guided injection into his left shoulder.Patient has a diagnosis of left shoulder glenohumeral synovitis. 3 out of 10 pain. Risks, benefits and alternatives were discussed with the patient and consent was obtained. The finalVerification/time out immediately prior to incision/procedure has been conducted by me and members of the procedural team as appropriate to their involvement in the procedure. The patient???s identity,procedure, and when applicable the: side/site, patient position, availability of implants and any special equipment or special requirements was verbally confirmed prior to the procedure PROCEDURE NOTE: Left shoulder glenohumeral injection under ultrasound guidance The patient was brought to the examination room. The correct side was identified in a madsen moment to accurately inject the proper joint. After verbal consent obtained, area of posterior shoulder was palpated and landmarks were noted. Theposterior labrum and posterior glenohumeral joint was localized under ultrasound. Images were saved.Pt prepped with isopropyl alcohol and draped. The region to be injected was anesthestized using 3 cc of 2% lidocaine. Under sterile conditions and using ultrasound for guidance, the glenohumeral joint was accessed witha 3.5 inch 22 gauge spinal needle. The glenohumeral joint was infused with 3 cc 2% lidocaine, 3 cc 0.5% marcaine and 2 cc 40 mg/cc kenalog without resistance. The capsule was noted to distend. Cleansedwith isopropyl alcohol and bandaged. The patient tolerated the procedure well. After care was reviewed including icing, use of NSAIDs prn and activity modification. Will follow up in several weeks with Dr. Kranthi Hillman. I discussed all of the above verbally with patient, no barriers to understanding. The patient indicated understanding and agrees to the above plan. Guzman Dash M.D. 10/11/2017 15:01 documented in this encounter Plan of Treatment Upcoming Encounters Date Type Specialty Care Team Description 05/08/2022 Telemedicine Sleep Medicine El Sinclair Jr., MD [address] [place] [address], [address] 2 [place], [place] [address] (Wo rk) documented as of this encounter Visit Diagnoses Diagnosis Synovitis of left shoulder - Primary documented in this encounter Care Teams Aircraft Detail Draftsperson Relationship Specialty Start Date End Date Pamela Petty MD PCP - General 10/07/15 02/08/20 [address] [place] [address] documented as of this encounter
--- OUTSIDE RECORDS SUMMARY | 2022-03-21 09:36 | XMS_ITS | Encounter Summary ---
:1975 Author Organization [facility] Address [address] [place] [address] Care Team Providers Name Role Phone Pamela Petty MD Primary Care Provider Encounter Details Date Type Department Care Team Description 06/19/2017 Hospital Encounter [facility] - Stephane Hillman [facility] Milan SIMON MD [phone] [place] [address] [place] [address] (Wo rk) Social History Tobacco Use Types [...] dislocation of left shoulder joint, initial encounter-S43.005A[ICD-10-CM] S43.085D Other dislocation of left shoul ulysses joint, subsequent encounter-S43.085D[ICD-10-CM] documented in this encounter Medications at Time of Discharge Medication Sig Dispensed Refills Start Date End Date ibuprofen (MOTRIN) 200 mg Take 200 mg by mouth 0 12/19/2017 tablet every 6 hours as needed for Pain. OMEGA-3S/DHA/EPA/FISH OIL Take by mouth daily. 0 02/26/2021 (OMEGA 3 ORAL) oxyCODONE-acetaminophen Take 1 Tab by mouth 0 12/19/2017 (PERCOCET) 5-325 mg per at bedtime. tablet documented as of this encounter Discharge Disposition Disposition Code Departure Means Destination Auto Discharge Home documented in this encounter Plan of Treatment Upcoming Encounters Date Type Specialty Care Team Description 05/08/2022 Telemedicine Sleep Medicine El Sinclair Jr., MD [address] [place] [address] [address] [place], [place] [phone] (Wo rk) documented as of this encounter Visit Diagnoses Not on filedocumented in this encounter Care Teams Summer Nanny Relationship Specialty Start Date End Date Pamela Petty MD PCP - General 10/07/15 02/08/20 [address] [place] [address] documented as of this encounter
--- OUTSIDE RECORDS SUMMARY | 2022-03-21 09:36 | XMS_ITS | Encounter Summary ---
:1975 Author Organization [facility] Address [address] [place] [address] Care Team Providers Name Role Phone Galo Bello MD Primary Care Provider Reason for Visit Reason Onset Date Comments Appointment Related 03/18/2015 Encounter Details Date Type Department Care Team Description 03/18/2015 Telephone [facility] Physical, Primo esqueda Appointment Related Rehabilitation Therapy - [phone] Medical Office Build ing (Fax) [address] [place] [address] Social History Tobacco Use Types [...] this encounter Miscellaneous Notes Telephone Encounter - Holly Berry - 03/18/2015 0924 EDT Received Referral for Vertigo from [facility] stating Patient to call to schedule appointment. Scanned Referral. documented in this encounter Plan of Treatment Upcoming Encounters Date Type Specialty Care Team Description 05/08/2022 Telemedicine Sleep Medicine El Sinclair Jr., MD [address] [place] [address] [address] [place], [place] [phone] (Wo rk) documented as of this encounter Visit Diagnoses Not on filedocumented in this encounter Care Teams Fac Engineer Relationship Specialty Start Date End Date Galo Bello MD PCP - General 05/06/13 10/06/15 [address] [facility] [address] [place] [phone] documented as of this encounter
--- OUTSIDE RECORDS SUMMARY | 2022-03-21 09:36 | XMS_ITS | Encounter Summary ---
:1975 Author Organization [facility] Address [address] [place] [address] Care Team Providers Name Role Phone Pamela Petty MD Primary Care Provider Reason for Visit Reason Comments Shoulder Pain Encounter Details Date Type Department Care Team Description 08/22/2017 Office Visit [facility] Kranthi Hillman er dislocation, Sports Medicine Milan SIMON MD left, subsequent Program - [place] [address] encounter (Primary Dx) [address] [place] [facility] [phone] Social History Tobacco Use Types Packs/Day Years [...] - - Weight 170.1 kg (375 lb) 08/22/2017 1242 EST Height 193 cm (6' 4) 08/22/2017 1242 EST Body Mass Index 45.65 08/22/2017 1242 EST documented in this encounter Functional Status [...] encounter Progress Notes Kranthi Hillman MD - 08/22/2017 1245 EST PROBLEM: Status post dislocation, left shoulder. SUBJECTIVE: Mr Ko is still having pain with motion. It feels like his arm will not go. At his lastvisit, I suggested working on range of motion. His therapist was uncomfortable doing that because she thought it might do more damage. He has had his electrodiagnostics and is here today for reevaluation. 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 Mr Ko's range of motion shows active elevation to approximately 100, abduction to 100. He still isunable to reach behind his back or behind his head due to discomfort. He notes that it feels as though the arm will not go. Reviewing his imaging including his MR, the anteroinferior labrum appears to be detached. There is no soft tissue interposed in the joint. The rotator cuff is intact. ASSESSMENT: I am concerned that Mr Ko may have some significant synovitis about the glenohumeral joint, which is impairing his ability to move his left shoulder. I think a glenohumeral injection under ultrasound guidance might be helpful to see if that is the case. We reviewed nerve injuries. He understands that this will take time to reinnervate and that the nerve injury could be the cause for his ongoing complaints as well. PLAN: I spoke with Carolina Hedrick. We will plan for an ultrasound-guided glenohumeral injection about the left shoulder. I will see Mr Ko back after that to assess his response. documented in this encounter Plan of Treatment Upcoming Encounters Date Type Specialty Care Team Description 05/08/2022 Telemedicine Sleep Medicine El Sinclair Jr., MD 1 [facility], [address] [place], [place] [phone] (Wo rk) documented as of this encounter Visit Diagnoses Diagnosis Shoulder dislocation, left, subsequent e ncounter - Primary documented in this encounter Care Teams Steel Wool Machine Operator Relationship Specialty Start Date End Date Pamela Petty MD PCP - General 10/07/15 02/08/20 [address] [place] [address] documented as of this encounter
--- OUTSIDE RECORDS SUMMARY | 2022-03-21 09:36 | XMS_ITS | Encounter Summary ---
:1975 Author Organization [facility] Address [address] [place] [address] Care Team Providers Name Role Phone Pamela Petty MD Primary Care Provider Reason for Visit Reason Onset Date Comments Appointment Related 09/19/2018 Encounter Details Date Type Department Care Team Description 09/19/2018 Telephone [facility] Sleep Program - Appointment Related [address] [place] [address] [facility] [address] [facility] [address] [place] [address] Social History Tobacco Use Types [...] this encounter Miscellaneous Notes Telephone Encounter - Estrella Connor - 09/19/2018 1406 EST Spoke w/ PT and scheduled a Split w/ TCCO2 at [facility] on 10/25 @ 7:55pm. PT understands all instructions. Paperwork has been mailed. documented in this encounter Plan of Treatment Upcoming Encounters Date Type Specialty Care Team Description 05/08/2022 Telemedicine Sleep Medicine El Sinclair Jr., MD 1 [facility], [facility] [address] [place], [place] [address] (Wo rk) documented as of this encounter Visit Diagnoses Not on filedocumented in this encounter Care Teams Chief Green Officer Relationship Specialty Start Date End Date Pamela Petty MD PCP - General 10/07/15 02/08/20 [address] [place] [address] documented as of this encounter
--- OUTSIDE RECORDS SUMMARY | 2022-03-21 09:36 | XMS_ITS | Encounter Summary ---
:1975 Author Organization [facility] Address [address] [place] [address] Care Team Providers Name Role Phone Galo Bello MD Primary Care Provider Encounter Details Date Type Department Care Team Description 08/03/2015 Hospital Encounter [facility] - Renetta Salguero, [address] [place], [place] [id number] [place] [id number] [phone] Social History Tobacco Use Types Packs/Day Years [...] as of this encounter Discharge Diagnoses Diagnosis G89.29 Other chronic pain-G89.29[ICD-10- CM] M54.5 Low back pain-M54.5[ICD-10-CM] documented in this encounter Medications at Time of Discharge Medication Sig Dispensed Refills Start Date End Date ibuprofen (MOTRIN) 600 mg Take 1 Tab by mouth 30 Tab 0 0 04/23/2012 03/29/2016 tablet 3 times daily. ibuprofen (MOTRIN) 800 mg Take 1 Tab by mouth 20 Tab 0 0 05/06/2013 09/27/2015 tablet 3 times daily. sulfamethoxazole-trimetho Take 1 Tab by mouth 14 Tab 0 1 09/27/2014 08/04/2015 prim every 12 hours for 7 (BACTRIM/C0-TRIMOXAZOLE days DS) 800-160 mg per tablet documented as of this encounter Discharge Disposition Disposition Code Departure Means Destination Auto Discharge Home documented in this encounter Plan of Treatment Upcoming Encounters Date Type Specialty Care Team Description 05/08/2022 Telemedicine Sleep Medicine El Sinclair Jr., MD 1 [facility], [address] [place], [place] [address] (Wo rk) documented as of this encounter Procedures Procedure Name Priority Date/Time Associated Diagnosis Comme nts MR LUMBAR SPINE WO 10/15/2015 16:51 Resul ts for this CONTRAST EST procedure are i n the results section. L SPINE 2-3 VIEWS 08/03/2015 9:46 EST Res ults for this procedure are i n the results section. documented in this encounter Results MR LUMBAR SPINE WO CONTRAST (10/15/2015 16:51 EST) Anatomical Region Laterality Modality Other Specimen Narrative [facility] MRI [facility] - 10/15/2015 17:00 EST MRI of the lumbar spine October 15, 2015. History: L3 radiculopathy. Comparison: August 03, 2015. Technique: Routine multiplanar MR imagin g of the lumbar spine was acquired. Findings: The retroperitoneal structures appear unremarkable. There is no significant scoliotic curvature. The conus terminates at L1. Signal in th e distal spinal cord is normal. Alignment of the lumbar vertebra l bodies is anatomic aside from trace retrolisthesis of L5 on S1. D isc space heights appear maintained, although there is loss of T2 signal in the disc spaces at L2-L3 and at L5-S1 suggesting disc de generation. On the STIR sequence there are no focal marrow signa l abnormalities. At L1-L2, L2-L3, and L3-L4 there is no f ocal herniation, central canal stenosis, or foraminal compromise. At L4-L5 there is mild disc bulge withou t focal herniation or central canal stenosis. Mild left-sided foraminal narrowing is present. At L5-S1 there is disc bulge without foc al herniation or central canal stenosis. Bilateral facet hypertro phy is present contributing to mild bilateral foraminal narrowing. Impression: 1. 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 2. No evidence of central canal stenosis . 3. Mild foraminal narrowing on the left at L4-L5 and bilaterally at L5-S1. Procedure Note Eloy Nieto MD - 10/15/2015 MRI of the lumbar spine October 15, 2015 . History: L3 radiculopathy. Comparison: August 03, 2015. Technique: Routine multiplanar MR imagin g of the lumbar spine was acquired. Findings: The retroperitoneal structures appear unremarkable. There is no significant scoliotic curvature. The conus terminates at L1. Signal in th e distal spinal cord is normal. Alignment of the lumbar vertebra l bodies is anatomic aside from trace retrolisthesis of L5 on S1. D isc space heights appear maintained, although there is loss of T2 signal in the disc spaces at L2-L3 and at L5-S1 suggesting disc de generation. On the STIR sequence there are no focal marrow signa l abnormalities. At L1-L2, L2-L3, and L3-L4 there is no f ocal herniation, central canal stenosis, or foraminal compromise. At L4-L5 there is mild disc bulge withou t focal herniation or central canal stenosis. Mild left-sided foraminal narrowing is present. At L5-S1 there is disc bulge without foc al herniation or central canal stenosis. Bilateral facet hypertro phy is present contributing to mild bilateral foraminal narrowing. Impression: 1. 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 2. No evidence of central canal stenosis . 3. Mild foraminal narrowing on the left at L4-L5 and bilaterally at L5-S1. Performing Organization Address City/State/ZIP Code Phon e Number [facility] MRI [place] SPINE 2-3 VIEWS (08/03/2015 9:46 EST) Anatomical Region Laterality Modality Other Specimen Narrative [facility] - 08/03/2015 16:39 EST L SPINE 2-3 VIEWS ??08/03/2015 9:46 AM Clinical History/Comments: Low back pain, chronic. Comparison: CT of the abdomen and pelvis January 23 3. Technique: AP and lateral views of the lumbar spine were obtained. Findings: Significant scoliotic curvature is not a ppreciated. No layne- or retrolisthesis is noted. Vertebral body heights are preserved. Disc space heights are relatively well-m aintained. Marked facet osteoarthropathy is not sarbjit reciated. Procedure Note Haylie Green MD - 08/03/2015 L SPINE 2-3 VIEWS 08/03/2015 9:46 AM Clinical History/Comments: Low back pain, chronic. Comparison: CT of the abdomen and pelvis January 23 3. Technique: AP and lateral views of the lumbar spine were obtained. Findings: Significant scoliotic curvature is not a ppreciated. No layne- or retrolisthesis is noted. Vertebral body heights are preserved. Disc space heights are relatively well-m aintained. Marked facet osteoarthropathy is not sarbjit reciated. Performing Organization Address City/State/ZIP Code Phon e Number [facility] documented in this encounter Visit Diagnoses Not on filedocumented in this encounter Care Teams Shoe Cementer Relationship Specialty Start Date End Date Galo Bello MD PCP - General 05/06/13 10/06/[address] [place] [phone] documented as of this encounter
--- OUTSIDE RECORDS SUMMARY | 2022-03-21 09:37 | XMS_ITS | Encounter Summary ---
:1975 Author Organization [facility] Address [address] [place] [address] Care Team Providers Name Role Phone Lucille Bello MD Primary Care Provider Reason for Visit Reason Comments Pharyngitis sore throat, runny nose, R e ar pain/drng. sinus pain since . 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 Details Date Type Department Care Team Description 06/30/2010 Emergency [facility] Mora Solis MD [address] [facility], [address] [place] [phone] Sinus infection; Emergency Department - Yasir Mack MD [address] [place], [place] [phone] Acute otitis media [facility] EmergencyFabio MD [address] [place], [place] [phone] Social History Tobacco Use Types Packs/Day Years Used Date Current Every Day Smoker 1 Alcohol Use Standard Drinks/Week Comments No 0 (1 standard drink = 0.6 oz pure alcoho l) Sex Assigned at Date Recorded Not on file documented as of this encounter Last Filed Vital Signs Vital Sign Reading Time Taken Comments Blood Pressure 135/70 06/30/2010 0921 EDT Pulse 106 06/30/2010 09 EDT Temperature 36.7 ??C (98.1 ??F) 06/30/2010 09 EDT Respiratory Rate 18 06/30/201021 EDT Oxygen Saturation 98% 06/30/2010 09 EDT Inhaled Oxygen Concentration - - Weight - - Height - - Body Mass Index - - documented in this encounter Discharge Instructions InstructionsSusan Hedrick MD - 06/30/2010 Images from the original note were not included. [facility] Patient Instructions Sinusitis in Adults: After Your Visit Your Care Instructions Sinusitis is an infection of the lining of the sinus cavities in your head. Sinusitis often follows a cold and causes pain and pressure in your head and face. Antibiotics can help cure sinusitis caused by bacteria. You should begin to feel better within a couple of days, but some symptoms may last for a month or more. If your doctor thinks that you have a bacterial infection, he or she will probably prescribe antibiotics. Follow-up care is a goldberg part of your treatment and safety. Be sure to make and go to all appointments, and call your doctor if you are having problems. It???s also a good idea to know your test resultsand keep a list of the medicines you take. How can you care for yourself at home? ?? Take your antibiotics as directed. Do not stop taking them just because you feel better. You needto take the full course of antibiotics. ?? Take an ezdi-bnw-fvjdbqd pain medicine, such as acetaminophen (Tylenol), ibuprofen (Advil, Motrin), or naproxen (Aleve). Read and follow all instructions on the label. No one younger than 20 should take aspirin. It has been linked to Anna syndrome, a serious illness. ?? Be careful when taking adyo-ool-cxirlcq cold or flu medicines and Tylenol at the same time. Many of these medicines have acetaminophen, which is Tylenol. Read the labels to make sure that you are not taking more than the recommended dose. Too much acetaminophen (Tylenol) can be harmful. ?? Breathe warm, moist air from a steamy shower, a hot bath, or a sink filled with hot water. Avoid cold, dry air. Using a humidifier in your home may help. Follow the instructions for cleaning the machine. ?? Use saline (saltwater) nasal washes to help keep your nasal passages open and wash out mucus and bacteria. You can buy saline nose drops at a grocery store or drugstore. Or you can make your own at home by adding 1 teaspoon of salt and 1 teaspoon of baking soda to 2 cups of water. If you make your own, fill a bulb syringe with the solution, insert the tip into your nostril, and squeeze gently. Blow your nose. ?? Put a hot, wet towel or a warm gel pack on your face 3 or 4 times a day for 5 to 10 minutes each time. ?? Try a decongestant nasal spray like oxymetazoline (Afrin). Do not use it for more than 3 days in a row. Using it for more than 3 days can make your congestion worse. ?? Take a decongestant such as pseudoephedrine (Sudafed) if your doctor recommends it. ?? Try a cough medicine with guaifenesin if your doctor recommends it. This can thin your mucus. ?? If you need to blow your nose, do it gently. Forceful blowing may force thick mucus back into your sinuses. Keep both nostrils open when you blow your nose. When should you call for help? Call your doctor now or seek immediate medical care if: ?? You have a fever with a stiff neck or a severe headache. ?? You are sensitive to light or feel very sleepy or confused. ?? You have a new or higher fever. ?? You have redness in your face or around your eyes, or you have pain in your face, eyes, or teeth that does not get better with pain medicine. ?? The mucus from your nose becomes thicker (like pus) or has new blood in it. ?? You have nosebleeds, redness or swelling around your eyes, or changes in vision. Watch closely for changes in your health, and be sure to contact your doctor if: ?? You do not get better within 2 days. Where can you learn more? Go to www.[employer].net/fahc Enter I933 in the search box to learn more about Sinusitis in Adults: After Your Visit. ?? 2005 - 2008 [employer]. Care instructions adapted under license by [facility], Inc . This care instruction is for use with your licensed healthcare professional. If youhave questions about a medical condition or this instruction, always ask your healthcare professional. [facility] disclaims any warranty or liability for your use of this information. [facility] Patient Instructions Ear Infection in Adults (Otitis Media): After Your Visit Your Care Instructions An ear infection may start with a cold and affect the middle ear (otitis media). It can hurt a lot. Most ear infections clear up on their own in a couple of days and do not need antibiotics. Also, antibiotics do not work against viruses, which may be the cause of your infection. Regular doses of pain relievers are the best way to reduce your fever and help you feel better. Follow-up care is a goldberg part of your treatment and safety. Be sure to make and go to all appointments, and call your doctor if you are having problems. It???s also a good idea to know your test resultsand keep a list of the medicines you take. How can you care for yourself at home? ?? Take pain medicines exactly as directed. ?? If the doctor gave you a prescription medicine for pain, take it as prescribed. ?? If you are not taking a prescription pain medicine, take an cpui-tsw-otujhsh medicine, such as acetaminophen (Tylenol), ibuprofen (Advil, Motrin), or naproxen (Aleve). Read and follow all instructions on the label. ?? Do not take two or more pain medicines at the same time unless the doctor told you to. Many pain medicines have acetaminophen, which is Tylenol. Too much acetaminophen (Tylenol) can be harmful. ?? Plan to take a full dose of pain reliever before bedtime. Getting enough sleep will help you get better. ?? Try a warm, moist washcloth on the ear to see if it helps relieve pain. ?? If your doctor prescribed antibiotics, take them as directed. Do not stop taking them just because you feel better. You need to take the full course of antibiotics. When should you call for help? Call your doctor now or seek immediate medical care if: ?? You are in severe pain several hours after taking pain relievers. ?? You have a fever with a stiff neck or a severe headache. ?? You have redness or swelling behind the ear. ?? You have signs of needing more fluids. You have sunken eyes and a dry mouth, and you pass only a little dark urine. Watch closely for changes in your health, and be sure to contact your doctor if: ?? You do not improve in 2 days. ?? White, yellow, or bloody liquid is coming from the ear. Where can you learn more? Go to www.[employer].net/fahc Enter X558 in the search box to learn more about Ear Infection in Adults (Otitis Media): After YourVisit. ?? 2005 - 2008 [employer]. Care instructions adapted under license by [facility], [facility] . This care instruction is for use with your licensed healthcare professional. If youhave questions about a medical condition or this instruction, always ask your healthcare professional. [employer] disclaims any warranty or liability for your use of this information. documented in this encounter Medications at Time of Discharge Medication Sig Dispensed Refills Start Date End Date azithromycin (ZITHROMAX) Take 1 Tab by mouth 6 Tab 0 09/05/2010 250 mg tablet daily. Take 2 tablets (500 mg) on Day 1, followed by 1 tablet (250 mg) once daily on Days 2 through 5. ibuprofen (MOTRIN) 600 mg Take 1 Tab by mouth 28 Tab 0 1 04/23/2012 tablet every 6 hours as needed for Pain. documented as of this encounter Ordered Prescriptions Prescription Sig Dispensed Refills Start Date End Date ibuprofen (MOTRIN) 600 mg Take 1 Tab by mouth 28 Tab 0 1 04/23/2012 tablet every 6 hours as needed for Pain. azithromycin (ZITHROMAX) Take 1 Tab by mouth 6 Tab 0 09/05/2010 250 mg tablet daily. Take 2 tablets (500 mg) on Day 1, followed by 1 tablet (250 mg) once daily on Days 2 through 5. documented in this encounter Discharge Disposition Disposition Code Departure Means Destination Home or Self Care documented in this encounter ED Notes Emma Pendleton RN - 06/30/2010 1011 EDT Work note given Yasir Mora MD - 06/30/2010 0975 EDT DOS: 06/30/2010 Chief Complaint Patient presents with ??? Pharyngitis sore throat, runny nose, R ear pain/drng. sinus pain since . 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 I reviewed this individual's note and I concur with the documented findings and plan of care. Fluid from right ear this morning. Has had URI for last week or so. Sinus pressure, sore throat, cough, myalgias and chills. Hx OM and sinus infections. Has done well with z pack in past The history is provided by the patient. Pharyngitis This is a recurrent problem. Associated symptoms include congestion, ear pain, plugged ear sensationand cough. Pertinent negatives include no diarrhea, no vomiting, no drooling, no shortness of breath, no trouble swallowing and no stiff neck. He has tried nothing for the symptoms. Review of Systems Constitutional: Positive for fever, chills, appetite change and fatigue. Negative for diaphoresis. HENT: Positive for ear pain and congestion. Negative for drooling and trouble swallowing. Respiratory: Positive for cough. Negative for shortness of breath. Gastrointestinal: Negative for vomiting and diarrhea. 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 External auditory canal reconstruction Allergies Allergen Reactions ??? Keflex (Cephalexin) Nausea And Vomiting History Substance Use Topics ??? Tobacco Use: Yes -- 1.0 packs/day ??? Alcohol Use: No History reviewed. No pertinent family history. Vital Signs Temp: 36.7 ??C (98.1 ??F) Temp src: Tympanic Pulse: 106 Resp: 18 SpO2: 98 % BP: 135/70 mmHg BP Device: BP Machine Patient Position: Sitting O2 Device: None (Room air) Physical Exam Nursing note and vitals reviewed. Constitutional: He is oriented to person, place, and time. He appears well- developed and well-nourished. HENT: There is erythema of the right tympanic membrane with multiple areas of scarring on the TM. The left ear canal is erythematous, and the tympanic membrane has multiple areas of scarring.the oropharynx is erythematous with a with a white mucous coating, there are no signs of peritonsillar abscess. Neck: Normal range of motion. Neck supple. Cardiovascular: Normal rate and regular rhythm. Exam reveals no gallop and no friction rub. No murmur heard. Pulmonary/Chest: Effort normal and breath sounds normal. No respiratory distress. He has no wheezes.He has no rales. Abdominal: Soft. Bowel sounds are normal. He exhibits no distension and no mass. No tenderness. Musculoskeletal: Normal range of motion. He exhibits no edema and no tenderness. Lymphadenopathy: He has cervical adenopathy. Neurological: He is alert and oriented to person, place, and time. Grossly intact Skin: Skin is warm and dry. No rash noted. Psychiatric: He has a normal mood and affect. Radiology orders: None Procedures ED Course: The patient was treated with antibiotics for possible ear infection and sinus infection Discharge Prescriptions New Prescriptions AZITHROMYCIN (ZITHROMAX) 250 MG TABLET Take 1 Tab by mouth daily. Take 2 tablets (500 mg) on Day 1,followed by 1 tablet (250 mg) once daily on Days 2 through 5. IBUPROFEN (MOTRIN) 600 MG TABLET Take 1 Tab by mouth every 6 hours as needed for Pain. MDM Number of Diagnoses or Management Options Acute otitis media: Sinus infection: Diagnosis management comments: 4 1. Sinus infection (473.9D) 2. Acute otitis media (382.9F) PCP: LUCILLE BELLO MD 06/30/2010 9:58 ATPlanMildred billings MD - 06/30/2010 0945 EDT DOS: 06/30/2010 Chief Complaint Patient presents with ??? Pharyngitis sore throat, runny nose, R ear pain/drng. sinus pain since . 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 I reviewed this individual's note and I concur with the documented findings and plan of care. ROS as per resident chart, otherwise reviewed in full and negative. 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 External auditory canal reconstruction Allergies Allergen Reactions ??? Keflex (Cephalexin) Nausea And Vomiting History Substance Use Topics ??? Tobacco Use: Yes -- 1.0 packs/day ??? Alcohol Use: No History reviewed. No pertinent family history. Vital Signs Temp: 36.7 ??C (98.1 ??F) Temp src: Tympanic Pulse: 106 Resp: 18 SpO2: 98 % BP: 135/70 mmHg BP Device: BP Machine Patient Position: Sitting O2 Device: None (Room air) Physical Exam Radiology orders: None Procedures ED Course: Patient with ST, runny nose since Sunday. Found to have acute OM. Treat with zithromax. Sxs to monitor for given; patient expresses understanding. F/u [facility] Discharge Prescriptions New Prescriptions AZITHROMYCIN (ZITHROMAX) 250 MG TABLET Take 1 Tab by mouth daily. Take 2 tablets (500 mg) on Day 1,followed by 1 tablet (250 mg) once daily on Days 2 through 5. IBUPROFEN (MOTRIN) 600 MG TABLET Take 1 Tab by mouth every 6 hours as needed for Pain. MDM 4 Condition: stable 1. Sinus infection (473.9D) 2. Acute otitis media (382.9F) PCP: LUCILLE BELLO MD 07/04/2010 21:52 documented in this encounter Miscellaneous Notes ED Resident - Susan Hedrick MD - 06/30/2010 1008 EDT DOS: 06/30/2010 Chief Complaint Patient presents with ??? Pharyngitis sore throat, runny nose, R ear pain/drng. sinus pain since . 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 Reports light yellow drainage from ear this AM. Patient states these symptoms are typical of his previous ear infections. Ibuprofen has minimally improved pain. Positive for fever (101 last night), chill, mild nausea, no vomiting. Tolerating PO intake well. Denies sob, abdominal pain or change in bowel or bladder function. States that he had atypical pneumonia 1.5 week ago. Currently does not have PCP. Has responded well to Z-pack in the past. Last ear infection 2+ years. The history is provided by the patient. No foreign languages department chair was used. Pharyngitis This is a recurrent problem. The current episode started more than 2 days ago. The problem has been rapidly improving. The maximum temperature recorded prior to his arrival was 101 to 101.9 F. The fever has been present for less than 1 day. Associated symptoms include congestion, ear discharge, ear pain, plugged ear sensation and cough. Pertinent negatives include no diarrhea, no vomiting, no drooling, no headaches, no shortness of breath, no stridor, no swollen glands, no trouble swallowing and no stiff neck. He has tried NSAIDs for the symptoms. The treatment provided mild relief. Review of Systems Constitutional: Positive for fever, chills and fatigue. Negative for diaphoresis and appetite change. HENT: Positive for hearing loss, ear pain, congestion, sore throat, rhinorrhea, sneezing, voice change, sinus pressure and ear discharge. Negative for nosebleeds, facial swelling, drooling, mouth sores, trouble swallowing, neck pain, neck stiffness, dental problem and tinnitus. Eyes: Negative. Respiratory: Positive for cough. Negative for apnea, choking, chest tightness, shortness of breath, wheezing and stridor. Cardiovascular: Negative for chest pain, palpitations and leg swelling. Gastrointestinal: Negative. Negative for vomiting and diarrhea. Genitourinary: Negative. Musculoskeletal: Negative. Skin: Negative. Negative for rash. Neurological: Negative. Negative for headaches. Hematological: Negative. Psychiatric/Behavioral: Negative. 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 External auditory canal reconstruction Allergies Allergen Reactions ??? Keflex (Cephalexin) Nausea And Vomiting History Substance Use Topics ??? Tobacco Use: Yes -- 1.0 packs/day ??? Alcohol Use: No History reviewed. No pertinent family history. Vital Signs Temp: 36.7 ??C (98.1 ??F) Temp src: Tympanic Pulse: 106 Resp: 18 SpO2: 98 % BP: 135/70 mmHg BP Device: BP Machine Patient Position: Sitting O2 Device: None (Room air) Physical Exam Nursing note and vitals reviewed. Constitutional: He is oriented to person, place, and time. He appears well- developed and well-nourished. HENT: Head: Normocephalic. Right Ear: There is swelling and tenderness. Tympanic membrane is scarred and erythematous. Decreased hearing is noted. Left Ear: Tympanic membrane is scarred. No decreased hearing is noted. Nose: Rhinorrhea present. Right sinus exhibits frontal sinus tenderness. Right sinus exhibits no maxillary sinus tenderness. Left sinus exhibits frontal sinus tenderness. Left sinus exhibits no maxillary sinus tenderness. Mouth/Throat: Posterior oropharyngeal erythema present. Posterior oropharynx coated with white mucous. No tonsillar exudates. No abscess present Eyes: Conjunctivae and extraocular motions are normal. Pupils are equal, round, and reactive to light. Neck: Normal range of motion. Cardiovascular: Regular rhythm. Exam reveals no gallop and no friction rub. No murmur heard. tachycardia Pulmonary/Chest: Effort normal and breath sounds normal. He has no wheezes. He has no rales. He exhibits no tenderness. Abdominal: Soft. Bowel sounds are normal. No tenderness. He has no rebound and no guarding. Musculoskeletal: He exhibits no edema. Lymphadenopathy: He has cervical adenopathy. Neurological: He is alert and oriented to person, place, and time. Skin: No rash noted. He is not diaphoretic. Radiology orders: None Procedures ED Course: Patient presents with sinus infection and acute otitis media. Treated with azithromycin and ibuprofen for pain. Instructed to follow up at [facility] within one week. Discharge Prescriptions New Prescriptions AZITHROMYCIN (ZITHROMAX) 250 MG TABLET Take 1 Tab by mouth daily. Take 2 tablets (500 mg) on Day 1,followed by 1 tablet (250 mg) once daily on Days 2 through 5. IBUPROFEN (MOTRIN) 600 MG TABLET Take 1 Tab by mouth every 6 hours as needed for Pain. MDM 1. Sinus infection (473.9D) 2. Acute otitis media (382.9F) PCP: LUCILLE BELLO MD 06/30/2010 10:08 canned Note- Null - Inpatient, MD Sushma - 06/30/2010 0000 EDT documented in this encounter Plan of Treatment Upcoming Encounters Date Type Specialty Care Team Description 05/08/2022 Telemedicine Sleep Medicine El Sinclair Jr., MD [address] [place] [address] [address] [place], [place] [phone] (Wo rk) documented as of this encounter Visit Diagnoses Diagnosis Sinus infection Unspecified sinusitis (chronic) Acute otitis media Unspecified otitis media documented in this encounter Discontinued Medications Medication Sig Discontinue Reason Start Date End Date clindamycin (CLEOCIN) 300 Take 1 Cap by mouth Therapy completed 01/201006/30/2010 mg capsule 3 times daily. oxycodone-acetaminophen Take 1-2 Tabs by Therapy completed 04/14/2006/30/2010 (PERCOCET) 5-325 mg per mouth every 6 hours tablet as needed for Pain. documented as of this encounter Care Teams Planning Feeder Relationship Specialty Start Date End Date Lucille Bello MD PCP - General 06/30/10 08/27/[address] [place] [phone] documented as of this encounter
--- OUTSIDE RECORDS SUMMARY | 2022-03-21 09:37 | XMS_ITS | Encounter Summary ---
:1975 Author Organization [facility] Address [address] [place] [address] Care Team Providers Name Role Phone Galo Bello MD Primary Care Provider Encounter Details Date Type Department Care Team Description 04/25/2011 Abstract [facility] Center Spine Galo Granados MD [facility] - [address] [place], [place] [address] [place] [phone] (Wo rk) Social History Tobacco Use Types Packs/Day Years Used Date Current Every Day Smoker 1 17 Smokeless Tobacco: Never Used Alcohol Use Standard Drinks/Week Comments Yes 0 (1 standard drink = 0.6 oz pure alcoho l) Sex Assigned at Date Recorded Not on file documented as of this encounter Plan of Treatment Upcoming Encounters Date Type Specialty Care Team Description 05/08/2022 Telemedicine Sleep Medicine El Sinclair Jr., MD [address] [place] [address] [address] [place], [place] [phone] (Wo rk) documented as of this encounter Visit Diagnoses Not on filedocumented in this encounter 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
--- OUTSIDE RECORDS SUMMARY | 2022-03-21 09:37 | XMS_ITS | Encounter Summary ---
:1975 Author Organization [facility] Address [address] [place] [id number] Care Team Providers Name Role Phone Unknown, Provider Primary Care Provider Reason for Visit Reason Comments Animal Bite Encounter Details Date Type Department Care Team Description 08/28/2011 Emergency [facility] Cain Jaimes PA-C [address] [place] [address] Infected cat bite Emergency Department - Emergency, MD Fabio [facility] [address] [place] [address] Social History Tobacco Use Types Packs/Day Years Used Date Current Every Day Smoker 1 17 Smokeless Tobacco: Never Used Alcohol Use Standard Drinks/Week Comments Yes 0 (1 standard drink = 0.6 oz pure alcoho l) Sex Assigned at Date Recorded Not on file documented as of this encounter Last Filed Vital Signs Vital Sign Reading Time Taken Comments Blood Pressure 130/80 08/28/20111953 EST Pulse 102 08/28/20111953 EST Temperature 36.5 ??C (97.7 ??F) 08/28/20111953 EST Respiratory Rate 16 08/28/20111953 EST Oxygen Saturation 98% 08/28/20111953 EST Inhaled Oxygen Concentration - - Weight 154 kg (339 lb 6.4 oz) 08/28/20111953 EST Height 193 cm (6' 4) 08/28/20111953 EST Body Mass Index 41.31 08/28/20111953 EST documented in this encounter Discharge Instructions InstructionsCain Jaimes PA - 08/28/2011 Ciprofloxacin for 7 days. Motrin or Tylenol as needed for pain. Scrub area with hot water and soap twice daily, keep covered and clean until better. Return for worsening symptoms. Follow up at the [facility] if no better in 5 days AttachmentsThe following attachments cannot be sent through Care Everywhere. ANIMAL BITES: AFTER YOUR VISIT (SERBIAN)documented in this encounter Medications at Time of Discharge Medication Sig Dispensed Refills Start Date End Date ciprofloxacin (CIPRO) 500 Take 1 Tab by 14 Tab 0 011 09/04/2011 mg tablet mouth 2 times daily for 7 days. cyclobenzaprine (FLEXERIL) Take 1 Tab by 15 Tab 0 201004/23/2012 5 mg tablet mouth 3 times daily as needed for Muscle Spasms. hydrocodone-acetaminophen Take 1 Tab by 15 Tab 0 011 04/23/2012 (VICODIN) 5-500 mg per mouth every 4 tablet hours. ibuprofen (MOTRIN) 600 mg Take 1 Tab by 28 Tab 0 010 04/23/2012 tablet mouth every 6 hours as needed for Pain. documented as of this encounter Ordered Prescriptions Prescription Sig Dispensed Refills Start Date End Date ciprofloxacin (CIPRO) 500 Take 1 Tab by 14 Tab 0 011 09/04/2011 mg tablet mouth 2 times daily for 7 days. documented in this encounter Discharge Disposition Disposition Code Departure Means Destination Home or Self Care Car Home documented in this encounter ED Notes Cain Jaimes PA - 08/28/20112049 EST Images from the original note were not included. DOS: 08/28/2011 Chief Complaint Patient presents with ??? Animal Bite The patient is a 36 y.o. male who presents today with Animal Bite HPI Comments: 36-year-old male who comes in with redness and swelling at the site of a cat bite on his left index finger. He states his cat bit him 2 days ago when he was breaking up a fight between his cat and dog. He has tenderness and redness on this finger and the second left MCP joint, does not radiate elsewhere. No fever or chills, does not feel ill otherwise. The history is provided by the patient. Animal Bite The incident occurred more than 2 days ago. The incident occurred at home. Pertinent negatives include no neck pain. Review of Systems Constitutional: Negative for fever and chills. HENT: Negative for neck pain and neck stiffness. Musculoskeletal: Negative for arthralgias. 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 External auditory canal reconstruction Allergies Allergen Reactions ??? Keflex (Cephalexin) Nausea And Vomiting History Substance Use Topics ??? Smoking status: Current Everyday Smoker -- 1.0 packs/day for 17 years ??? Smokeless tobacco: Never Used ??? Alcohol Use: Yes History reviewed. No pertinent family history. Vital Signs Temp: 36.5 ??C (97.7 ??F) Temp src: Tympanic Pulse: 102 Heart Rate: 102 BPM Resp: 16 SpO2: 98 % BP: 130/80 mmHg BP Device: BP Machine Patient Position: Sitting BP Cuff Location: Left arm O2 Device: None (Room air) Physical Exam Constitutional: He appears well-developed and well-nourished. No distress. HENT: Head: Normocephalic. Musculoskeletal: Hands: Lymphadenopathy: He has no cervical adenopathy. Neurological: He is alert. Psychiatric: He has a normal mood and affect. Radiology orders: None Procedures ED Course: A medical screening exam was performed. On exam, patient has normal vital signs and looks well. He has several scratches and puncture wounds to the left second finger with moderate erythema and swelling, does not have significant pain with movement of the finger. Patient given a first dose of Cipro, and a prescription for same . He is advised to followup with his primary care provider in 5 days if nobetter, return for worsening symptoms. Disposition: Discharged The patient's pain was managed to an adequate level weighing risk vs. benefit of further medications. Upon departure from the Emergency Department, the patient's pain was 2 on a zero to ten scale. Condition at departure from the Emergency Department: Stable Discharge Prescriptions New Prescriptions CIPROFLOXACIN (CIPRO) 500 MG TABLET Take 1 Tab by mouth 2 times daily for 7 days. MDM Number of Diagnoses or Management Options Infected cat bite: Diagnosis management comments: 2 1. 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 Pt states he is unsure of cat's immunization status. States his tetanus is not utd. On exam, has 2 superficl lacerations and one puncture wound on index finger of left hand. Denies fevers, n/v or any other symptoms. documented in this encounter Miscellaneous Notes Scanned Note-Null - Dewatering Filtering Supervisor, Scan - 08/29/2011 7023 EST documented in this encounter Plan of Treatment Upcoming Encounters Date Type Specialty Care Team Description 05/08/2022 Telemedicine Sleep Medicine El Sinclair Jr., MD [address] [place] [address] [address] [place], [place] [address] (Wo rk) documented as of this encounter Visit Diagnoses Diagnosis Infected cat bite Open wound(s) (multiple) of unspecified site(s), complicated documented in this encounter Administered Medications Inactive Administered Medications - up to 3 most recent administrations Medication Order MAR Action Action Date Dose Rate Site ciprofloxacin (CIPRO) tablet 500 mg Given 08/28/2011 20:53 EST 500 mg 500 mg, oral, NOW X1, 1 dose, On Sun08/28/11 at 2115, Controlled antibiotic, has ID approved? No: ED Patient, STAT documented in this encounter Active and Recently Administered Medications Times are shown in EST. Scheduled Medication Order 08/26/2011 08/27/2011 08/28/2011 ciprofloxacin (CIPRO) tablet 500 mg (COMPLETED) 2052 (Given - Provider: Earline Stephens RN) 500 mg, Oral, NOW X1, 1 dose, 08/28/11 at 2115 documented in this encounter Orders Medications Ordered That Might Not Have Count Last Ord ered Date First Ordered Date Been Administered ciprofloxacin (CIPRO) tablet 500 mg 1 08/28/2011 documented in this encounter Care Teams Supervisor Asphalt Paving Relationship Specialty Start Date End Date Unknown, Provider, PCP - General 08/28/11 08/28/11 documented as of this encounter
--- OUTSIDE RECORDS SUMMARY | 2022-03-21 09:37 | XMS_ITS | Encounter Summary ---
:1975 Author Organization [facility] Address [address] [place] [address] Care Team Providers Name Role Phone None, Provider Primary Care Provider Unavailable Reason for Referral Cardiology (Routine/Next Available) - Closed Specialty Diagnoses / Procedures Referred By Contact Refer red To Contact Diagnoses Chest pain Serina Aceves MD Procedures NM NUCLEAR STRESS PET/CT PHARM [address] [place] [address] Referral ID Status Reason Start Date Expiration Date Visits Requ ested Visits Authorized [id number] Closed 04/23/2012 1 1 Encounter Details Date Type Department Care Team Description 04/23/2012 Orders Only [facility] Cal Aceves MD Chest pain (Primary Cardiology - [place] [address] [facility] Dx) [address] [place] [address] [place], [place] [phone] ( Work) [phone] Social History Tobacco Use Types Packs/Day Years [...] Telemedicine Sleep Medicine El Sinclair Jr., MD [address] [place] [address], [facility] [address] [place], [place] [address] (Wo rk) Pending Results Name Type Priority Associated Diagnoses Date/Ti me NM NUCLEAR STRESS Cardiac Services Routine Chest pain 2011 8:30 EDT PET/CT PHARM documented as of this encounter Visit Diagnoses Diagnosis Chest pain - Primary Chest pain, unspecified documented in this encounter Care Teams It Account Manager Relationship Specialty Start Date End Date None, Provider PCP - General 08/29/11 05/05/13 documented as of this encounter
--- OUTSIDE RECORDS SUMMARY | 2022-03-21 09:37 | XMS_ITS | Encounter Summary ---
:1975 Author Organization [facility] Address [address] [place] [address] Care Team Providers Name Role Phone Galo Bello MD Primary Care Provider Reason for Visit Reason Onset Date Comments Appointment Related 03/16/2011 phone number not wor julio, mailed out letter to have this call us to sche keyona P.T. Encounter Details Date Type Department Care Team Description 03/16/2011 Telephone [facility] Sheryl Moreno PT Appointment Related Rehabilitation Therapy - [address] [facility] (phone number [place] [address] working, mailed out [address] [facility] [place] [address] call us to schedule [phone] P.T.) Social History Tobacco Use Types Packs/Day Years Used Date Current Every Day Smoker 1 17 Smokeless Tobacco: Never Used Alcohol Use Standard Drinks/Week Comments Yes 0 (1 standard drink = 0.6 oz pure alcoho l) Sex Assigned at Date Recorded Not on file documented as of this encounter Miscellaneous Notes Telephone Encounter - Ute Flores - 03/16/2011 1418 EDT Patient's phone number not working, mailed out letter to have this call us to schedule P.T. We have received a referral and notes for Physical therapy from Nisha Disla PA-C. I have mailed out a letter to this patient to call us and schedule this appointment. documented in this encounter Plan of Treatment Upcoming Encounters Date Type Specialty Care Team Description 05/08/2022 Telemedicine Sleep Medicine El Sinclair Jr., MD 1 [facility], [address] [place], [place] [address] (Wo rk) documented as of this encounter Visit Diagnoses Not on filedocumented in this encounter Care Teams Pantry Goods Maker Relationship Specialty Start Date End Date Galo Bello MD PCP - General 06/30/10 08/27/11 7 [facility] [address] [place] [address] documented as of this encounter
--- OUTSIDE RECORDS SUMMARY | 2022-03-21 09:37 | XMS_ITS | Encounter Summary ---
:1975 Author Organization [facility] Address [address] [place] [address] Care Team Providers Name Role Phone Lucille Polanco MD Primary Care Provider Reason for Visit Reason Comments Medical Evaluation Pt reports I feel like crap , reports nausea, sweating, sore throat, diarrhea, achy all s jahaira 1900. Encounter Details Date Type Department Care Team Description 03/17/2010 Emergency [facility] Paul Calvert PA-C [address] [place] [address] Viral syndrome; Emergency Department - Emergency, MD [place] [address] Social History Tobacco Use Types Packs/Day Years Used Date Current Every Day Smoker 2 Alcohol Use Standard Drinks/Week Comments No 0 (1 standard drink = 0.6 oz pure alcoho l) Sex Assigned at Date Recorded Not on file documented as of this encounter Last Filed Vital Signs Vital Sign Reading Time Taken Comments Blood Pressure 125/85 03/17/2010 0102 EDT Pulse 97 03/17/2010 010 EDT Temperature 35.9 ??C (96.6 ??F) 03/17/2010 010 EDT Respiratory Rate 18 03/17/2010 010 EDT Oxygen Saturation 96% 03/17/2010 010 EDT Inhaled Oxygen Concentration - - Weight - - Height - - Body Mass Index - - documented in this encounter Discharge Instructions InstructionsPaul Calvert PA - 03/17/2010 AttachmentsThe following attachments cannot be sent through Care Everywhere. SCIATICA: AFTER YOUR VISIT (QATARI)DIARRHEA IN ADULTS: AFTER YOUR VISIT (QATARI)documented in this encounter Discharge Disposition Disposition Code Departure Means Destination Home or Self Half-Way documented in this encounter ED Notes Paul Calvert PA - 03/18/2010 1823 EDT DOS: 03/17/2010 Chief Complaint Patient presents with ??? Medical Evaluation Pt reports I feel like crap, reports nausea, sweating, sore throat, diarrhea, achy all since 1900. The patient is a 34 y.o. male who presents today with Medical Evaluation Medical Evaluation Pt here today feeling horrible since 7PM she has been having nausea vomiting and diarrhea. He also complains of fatigue. Sx came on abruptly. Pt is also complaining of having back pain radiating down his leg. Review of Systems ROS: Const: No fevers/chills HEENT: No nosebleed/eyepain + sore throat Resp: No SOB Cardio: No chest pain GI: No abdominal pain/+nausea/+vomiting/+diarrhea : No dysuria no loss of bowel or bladder control Musc: No back pain Skin: No rash Neuro: No Headache Hem: No easy bruisability Psych: No confusion Physical Exam: Chief complaint reviewed Vitals signs reviewed Nurses note reviewed Well developed HEENT:Normocephalic no exudate Conj nl Neck:supple HRR Cx:effort nl/CTA Abd:soft NT + BS Musc:good strength Neuro:non-focal Back:L-S spine: Mild tenderness to palpation sciatic groove Sensation to LT intact LE Strength: able to stand on tip toes/rock back onheels/squats to 90 degrees Reflexes equal bilateral patella/achilles Skin:warm and dry Psych:Mood /affect normal 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 External auditory canal reconstruction Allergies Allergen Reactions ??? Keflex (Cephalexin) Nausea And Vomiting History Substance Use Topics ??? Tobacco Use: Yes -- 2.0 packs/day ??? Alcohol Use: No History reviewed. No pertinent family history. Vital Signs Temp: 35.9 ??C (96.6 ??F) Temp src: Tympanic Pulse: 97 Resp: 18 SpO2: 96 % BP: 125/85 mmHg O2 Device: None (Room air) Physical Exam Radiology orders: None Procedures ED Course: Pt feeling better after fluids. Stable Previous medical record obtained and reviewed. Obtained hx from someone other than the patient. Discharge Prescriptions No Discharge Prescriptions for this patient MDM 4 Encounter Diagnoses Code Name Primary? Qualifier ??? 079.99B Viral syndrome ??? 724.3 Sciatica PCP: LUCILLE POLANCO MD 03/18/2010 6:23 PM ED Attending Available for Supervision: Rj Mata documented in this encounter Miscellaneous Notes Scanned Note-Null - Inpatient, MD Sushma - 03/17/2010 2207 EDT documented in this encounter Plan of Treatment Upcoming Encounters Date Type Specialty Care Team Description 05/08/2022 Telemedicine Sleep Medicine El Sinclair Jr., MD 1 [facility], [address] [place], [place] [address] (Wo rk) documented as of this encounter Visit Diagnoses Diagnosis Viral syndrome Unspecified viral infection, in conditio ns classified elsewhere and of unspecified site Sciatica documented in this encounter Care Teams Senior Ios Developer Relationship Specialty Start Date End Date Lucille Polanco MD PCP - General 03/17/10 06/29/[address] [place] [address] [address] [place] [phone] documented as of this encounter
--- OUTSIDE RECORDS SUMMARY | 2022-03-21 09:37 | XMS_ITS | Encounter Summary ---
:1975 Author Organization [facility] Address [address] [place] [address] Care Team Providers Name Role Phone None, Provider Primary Care Provider Unavailable Encounter Details Date Type Department Care Team Description 08/29/2011 Hospital Encounter [facility] - Manuel Caballero PA [address] [place] [phone] (Wo rk) Social History Tobacco Use Types [...] for Pain. documented as of this encounter Discharge Disposition Disposition Code Departure Means Destination Home or Self Fpc documented in this encounter Plan of Treatment Upcoming Encounters Date Type Specialty Care Team Description 05/08/2022 Telemedicine Sleep Medicine El Sinclair Jr., MD 1 [facility], Level 2 [place], [place] [phone] (Wo rk) documented as of this encounter Procedures Procedure Name Priority Date/Time Associated Diagnosis Comme nts CT ABDOMEN, PELVIS 01/23/2013 15:38 Resul ts for this W CONTRAST EDT procedure are i n the results section. HAND 3 OR MORE 08/29/2011 16:36 Results f or this VIEWS EST procedure are i n the results section. FOOT 3 OR MORE 08/29/2011 16:36 Results f or this VIEWS EST procedure are i n the results section. documented in this encounter Results CT ABDOMEN, PELVIS W CONTRAST (01/23/2013 15:38 EDT) Anatomical Region Laterality Modality Other Specimen Narrative [facility] - 01/23/2013 16:[address] ABDOMEN, PELVIS W CONTRAST ??01/23/2013 3:38 PM Signs and Symptoms/Comments: ??Epigastri c and RLQ pain. Comparison: None. Technique: Helical images were obtained from the domes of the diaphragm to the ischial tuberosities af ter an uneventful administration of intravenous contrast ( 100 cc of 370 mg % nonionic contrast administered at a rate of 2 ??c c/sec) in the portal venous phase. Oral contrast was given prior to CT scan. The rectal contrast was declined by the patient. Findings: The images are partially degraded by inc reased signal noise due to patient's large body habitus. However, t he image quality remains reasonable in diagnostic utility. There is a few small bowel loops in the mid lower abdomen demonstrating mild wall thickening and m ild distention. No focal transition point is identified. No pneum atosis or portal venous gas is identified. Small fluid is noted in t he right paracolic gutter and prerectal region. No organized fluid col lection is identified. No intraperitoneal free air is visualized. A number of prominent mesenteric lymph nodes are noted in the mid abdomen. The vasculature is patent with mild prominence of the va sculature supplying the abnormal bowel loops. The appendix is within normal limits con taining air and contrast and trace adjacent fluid, likely extension f rom the peritoneal free fluid. The liver is without significant finding s. The gallbladder, pancreas, spleen, and adrenal glands are grossly u nremarkable. A tiny oval-shaped cyst is noted at the upper p ole of the left kidney. The kidneys are otherwise unremarkable with no hydronephrosis. The urinary bladder is within normal limits. The prostate and seminal vesicles are grossly unremarkable. The lung bases are clear. No significant osseous structure abnormality is identified. The aorta stacey ws no appreciable atherosclerotic calcification. Retroaort ic left renal vein noted. Impression: 1. Mild small bowel distention and mild wall thickening at the mid lower abdomen, with prominent adjacent m esenteric lymph nodes, findings suggesting regional enteritis. No transition zone to suggest small bowel obstruction is evident. This may be secondary to infectious or inflammatory etiology such as Crohn's disease. 2. Small intraperitoneal free fluid but no drainable fluid collection. 3. Normal appendix. 4. Pancreas within normal limits. 5. Small left renal cyst. The case was discussed by Dr Anthony yuan th Dr. RYANN PATTERSON at 4 PM on 01/23/2013. I have personally reviewed the images an d the above interpretation and agree with the findings. Procedure Note Anthony Cordero MD - 01/23/2013 CT ABDOMEN, PELVIS W CONTRAST 01/23/2013 3:38 PM Signs and Symptoms/Comments: Epigastric and RLQ pain. Comparison: None. Technique: Helical images were obtained from the domes of the diaphragm to the ischial tuberosities af ter an uneventful administration of intravenous contrast ( 100 cc of 370 mg % nonionic contrast administered at a rate of 2 cc/ sec) in the portal venous phase. Oral contrast was given prior to CT scan. The rectal contrast was declined by the patient. Findings: The images are partially degraded by inc reased signal noise due to patient's large body habitus. However, t image quality remains reasonable in diagnostic utility. There is a few small bowel loops in the mid lower abdomen demonstrating mild wall thickening and m ild distention. No focal transition point is identified. No pneum atosis or portal venous gas is identified. Small fluid is noted in t he right paracolic gutter and prerectal region. No organized fluid col lection is identified. No intraperitoneal free air is visualized. A number of prominent mesenteric lymph nodes are noted in the mid abdomen. The vasculature is patent with mild prominence of the va sculature supplying the abnormal bowel loops. The appendix is within normal limits con taining air and contrast and trace adjacent fluid, likely extension f rom the peritoneal free fluid. The liver is without significant finding s. The gallbladder, pancreas, spleen, and adrenal glands are grossly u nremarkable. A tiny oval-shaped cyst is noted at the upper p ole of the left kidney. The kidneys are otherwise unremarkable with no hydronephrosis. The urinary bladder is within normal limits. The prostate and seminal vesicles are grossly unremarkable. The lung bases are clear. No significant osseous structure abnormality is identified. The aorta stacey ws no appreciable atherosclerotic calcification. Retroaort ic left renal vein noted. Impression: 1. Mild small bowel distention and mild wall thickening at the mid lower abdomen, with prominent adjacent m esenteric lymph nodes, findings suggesting regional enteritis. No transition zone to suggest small bowel obstruction is evident. This may be secondary to infectious or inflammatory etiology such as Crohn's disease. 2. Small intraperitoneal free fluid but no drainable fluid collection. 3. Normal appendix. 4. Pancreas within normal limits. 5. Small left renal cyst. The case was discussed by Dr Anthony yuan Dr. RYANN PATTERSON at 4 PM on 01/23/2013. I have personally reviewed the images an d the above interpretation and agree with the findings. Performing Organization Address City/State/ZIP Code Phon e Number [facility] FOOT 3 OR MORE VIEWS (08/29/2011 16:36 EST) Anatomical Region Laterality Modality Other Specimen Narrative [facility] - 08/30/2011 10:40 EST Findings: Three nonweightbearing radiographs of [facility] left foot were obtained. The distal aspect of the first and secon d toes is not included on the AP radiograph but appears within normal limits on the other 2 views. No fracture is identified. Alignment can not be well assessed on these nonweightbearing images. An os trigonum is incidentally seen. Joint spaces are preserved. Impression: No acute finding. Procedure Note 08/30/2011 Findings: Three nonweightbearing radiographs of e left foot were obtained. The distal aspect of the first and secon d toes is not included on the AP radiograph but appears within normal limits on the other 2 views. No fracture is identified. Alignment can not be well assessed on these nonweightbearing images. An os trigonum is incidentally seen. Joint spaces are preserved. Impression: No acute finding. Performing Organization Address City/[facility]/ZIP Code Phon e Number [facility] HAND 3 OR MORE VIEWS (08/29/2011 16:36 EST) Anatomical Region Laterality Modality Other Specimen Narrative [facility] - 08/30/2011 12:32 EST HAND 3 OR MORE VIEWS ??Aug 29, 2011 04:36:35 PM Clinical history: Left hand and foot renetta n Comparison: None. Findings: PA, oblique, lateral views of the left h and show no evidence of acute fracture, subluxation, or dislocation. T he carpal bones appear well aligned. The CMC, MCP, PIP, and DIP join ts are congruent. No significant degenerative changes seen. 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 Mineralization is age-appro priate. Soft tissues are grossly unremarkable. A piece of metalli c jewelry obscures portions of the 4th proximal phalanx on the ring finger. Procedure Note 08/30/2011 HAND 3 OR MORE VIEWS Aug 29, 2011 04:36: 35 PM Clinical history: Left hand and foot renetta n Comparison: None. Findings: PA, oblique, lateral views of the left h and show no evidence of acute fracture, subluxation, or dislocation. T he carpal bones appear well aligned. The CMC, MCP, PIP, and DIP join ts are congruent. No significant degenerative changes seen. 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 Mineralization is age-appro priate. Soft tissues are grossly unremarkable. A piece of metalli c jewelry obscures portions of the 4th proximal phalanx on the ring finger. Performing Organization Address City/[facility]/ZIP Code Phon e Number [facility] documented in this encounter Visit Diagnoses Not on filedocumented in this encounter Care Teams Cotton Ball Bagger Relationship Specialty Start Date End Date None, Provider PCP - General 08/29/11 05/05/13 documented as of this encounter
--- OUTSIDE RECORDS SUMMARY | 2022-03-21 09:37 | XMS_ITS | Encounter Summary ---
:1975 Author Organization [facility] Address [address] [place] [address] Care Team Providers Name Role Phone None, Provider Primary Care Provider Unavailable Reason for Visit Reason Onset Date Comments Appointment Related 04/30/2012 Encounter Details Date Type Department Care Team Description 04/30/2012 Telephone [facility] Dat Rainey MD Appointment Related Cardiology - [address], [place] [address] [address] [place], [place] [phone] (Wo rk) Social History Tobacco Use Types Packs/Day Years Used Date Current Every Day Smoker 1 17 Smokeless Tobacco: Never Used Alcohol Use Standard Drinks/Week Comments Yes 0 (1 standard drink = 0.6 oz pure alcoho l) Sex Assigned at Date Recorded Not on file documented as of this encounter Miscellaneous Notes Telephone Encounter - Clarissa Melton - 05/06/2012 0835 EDT Pt has not given the office a call back. NM PET/CT has been scheduled and packet sent to the patient. elephone Encounter - Clarissa Melton - 05/02/2012 1240 EDT Left message to give the office a call back. elephone Encounter - Clarissa Melton - 04/30/2012 1601 EDT Left message for patient to the office a call back to schedule his NM Nuc PET/CT. documented in this encounter Plan of Treatment Upcoming Encounters Date Type Specialty Care Team Description 05/08/2022 Telemedicine Sleep Medicine El Sinclair Jr., MD 1 [facility], Level 2 [place], [place] [phone] (Wo rk) documented as of this encounter Visit Diagnoses Not on filedocumented in this encounter Care Teams Interpreter Deaf Relationship Specialty Start Date End Date None, Provider PCP - General 08/29/11 05/05/13 documented as of this encounter
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
--- OUTSIDE RECORDS SUMMARY | 2022-03-21 09:37 | XMS_ITS | Encounter Summary ---
:1975 Author Organization [facility] Address [address] [place] [address] Care Team Providers Name Role Phone Galo Bello MD Primary Care Provider Reason for Visit Reason Onset Date Comments Appointment Related 04/19/2011 Patient called to [place] chasity P.T.. Encounter Details Date Type Department Care Team Description 04/19/2011 Telephone [facility] Sheryl Moreno, NICOLE Appointment Related Rehabilitation Therapy - [address] [facility] ([place] [address] schedule P.T.. ) [address] [place] [address] Social History Tobacco Use Types Packs/Day Years Used Date Current Every Day Smoker 1 17 Smokeless Tobacco: Never Used Alcohol Use Standard Drinks/Week Comments Yes 0 (1 standard drink = 0.6 oz pure alcoho l) Sex Assigned at Date Recorded Not on file documented as of this encounter Miscellaneous Notes Telephone Encounter - Ute Flores - 04/19/2011 1348 EDT MEDICAL OFFICE BUILDING ([facility]) [address] [facility] [address] Phone: [phone] Fax: [phone] Telephone Intake Information for Scheduling NEW Patients for Therapy Script/referral (Referral and notes were faxed over) 04/19/11 requested another referral that doesn'tstate Pain in it. Primary Insurance: [facility] Secondary Insurance: None If Medicaid: Have you been seen in therapy since 09-10-10? Unknown Notes/other: Ute Flores documented in this encounter Plan of Treatment Upcoming Encounters Date Type Specialty Care Team Description 05/08/2022 Telemedicine Sleep Medicine El Sinclair Jr., MD [address] [place] [address], [address] [place], [place] [phone] (Wo rk) documented as of this encounter Visit Diagnoses Not on filedocumented in this encounter Care Teams Edger Operator Relationship Specialty Start Date End Date Galo Bello MD PCP - General 06/30/10 08/27/11 [address] [facility] [address] [place] [address] documented as of this encounter
--- OUTSIDE RECORDS SUMMARY | 2022-03-21 09:37 | XMS_ITS | Encounter Summary ---
:1975 Author Organization [facility] Address [address] [place] [address] Care Team Providers Name Role Phone Galo Bello MD Primary Care Provider Reason for Visit Reason Onset Date Comments Appointment Related 05/18/2011 Encounter Details Date Type Department Care Team Description 05/18/[address] [facility] Nisha Caballero Appo intment Related Rehabilitation Therapy - [place] [facility] [address] [place] [place], [place] [phone] (Wo rk) Social History Tobacco Use Types Packs/Day Years Used Date Current Every Day Smoker 1 17 Smokeless Tobacco: Never Used Alcohol Use Standard Drinks/Week Comments Yes 0 (1 standard drink = 0.6 oz pure alcoho l) Sex Assigned at Date Recorded Not on file documented as of this encounter Miscellaneous Notes Telephone Encounter - Ute Flores - 05/18/2011 1336 EDT May 18, 2011 RE: Brian Ko : 1975 Dear Nisha ABEBE & Dr Galo Bello: Thank you for referring Mr. Ko for Physical Therapy at [facility]. We schedule Mr. Ko for Physical Therapy. He has no-showed for the past two appointments. Those appointment were on 05/10/11 and 05/18/11. We have mailed out a letter to him on 03/16/11 with these dates and times since his phone was note working. We will discontinue our attempts to reschedule at this point. We would be happy to schedule Mr. Koat a later date, should his plans for rehabilitation change. Please feel free to call our office with questions or concerns. Sincerely, Ute Flores CC: Brian Ko [address] [facility] [address] documented in this encounter Plan of Treatment Upcoming Encounters Date Type Specialty Care Team Description 05/08/2022 Telemedicine Sleep Medicine El Sinclair Jr., MD [address] [place] [address] [address] [place], [place] [phone] (Wo rk) documented as of this encounter Visit Diagnoses Not on filedocumented in this encounter Care Teams Television Installer Relationship Specialty Start Date End Date Galo Bello MD PCP - General 06/30/10 08/27/11 [address] [facility] [address] [place] [address] documented as of this encounter
--- OUTSIDE RECORDS SUMMARY | 2022-03-21 09:37 | XMS_ITS | Encounter Summary ---
:1975 Author Organization [facility] Address [address] [place] [address] Care Team Providers Name Role Phone Lucille Polanco MD Primary Care Provider Reason for Visit Reason Comments Dental Pain wisdom tooth cracked 2 w eeks ago. L upper. no facial swelling. Encounter Details Date Type Department Care Team Description 04/14/2010 Emergency [facility] Ralph Nicole, PA-C [address] [facility], [address] [place] [address] Dentalgia Emergency Department - Emergency, [facility] [address] [place] [address] Social History Tobacco Use Types Packs/Day Years Used Date Current Every Day Smoker 2 Alcohol Use Standard Drinks/Week Comments No 0 (1 standard drink = 0.6 oz pure alcoho l) Sex Assigned at Date Recorded Not on file documented as of this encounter Last Filed Vital Signs Vital Sign Reading Time Taken Comments Blood Pressure 149/90 04/14/2010 1636 EDT Pulse 79 04/14/2010 1636 EDT Temperature 36.5 ??C (97.7 ??F) 04/14/2010 1636 EDT Respiratory Rate 20 04/14/2010 1636 EDT Oxygen Saturation - - Inhaled Oxygen Concentration - - Weight - - Height - - Body Mass Index - - documented in this encounter Discharge Instructions Ralph Gonzalez Jr., PA - 04/14/2010 Images from the original note were not included. [facility] Patient Instructions Dental Pain: After Your Visit Your Care Instructions The most common cause of dental pain is tooth decay. It can also be caused by an infection of the tooth (abscess) or gum, a tooth that has not broken all the way through the gum (impacted tooth), or a problem with the nerve-filled center of the tooth. Follow-up care is a goldberg part of your treatment and safety. Be sure to make and go to all appointments, and call your doctor if you are having problems. It???s also a good idea to know your test resultsand keep a list of the medicines you take. How can you care for yourself at home? ?? Contact a dentist for follow-up care. Put ice or a cold pack on the outside of your mouth for 10 to 20 minutes at a time to reduce pain and swelling. Put a thin cloth between the ice and your skin. Take an [id number] pain medicine, such as acetaminophen (Tylenol), ibuprofen (Advil, Motrin), or naproxen (Aleve). Read and follow all instructions on the label. Do not take two or more pain medicines at the same time unless the doctor told you to. Many pain medicines have acetaminophen, which is Tylenol. Too much acetaminophen (Tylenol) can be harmful. Rinse your mouth with warm salt water every 2 hours to help relieve pain and swelling from an infected tooth. Mix 1 teaspoon of salt in 8 ounces of water. If your doctor prescribed antibiotics, take them as directed. Do not stop taking them just because you feel better. You need to take the full course of antibiotics. When should you call for help? Call your doctor now or seek immediate medical care if: ?? You have signs of infection, such as: ?? Increased pain, swelling, warmth, or redness. Pus draining from the gum, tooth, or face. Swollen lymph nodes in your neck, armpits, or groin. A fever. Watch closely for changes in your health, and be sure to contact your doctor if: ?? You do not get better as expected. Where can you learn more? Go to www.Attend.com.net/fahc Enter V264 in the search box to learn more about Dental Pain: After Your Visit. ?? 2005 - 2008 [employer]. Care instructions adapted under license by [facility], [facility] . This care instruction is for use with your licensed healthcare professional. If youhave questions about a medical condition or this instruction, always ask your healthcare professional. [facility] disclaims any warranty or liability for your use of this information. documented in this encounter Medications at Time of Discharge Medication Sig Dispensed Refills Start Date End Date clindamycin (CLEOCIN) 300 Take 1 Cap by mouth 28 Cap 0 0 04/14/2010 06/30/2010 mg capsule 3 times daily. oxycodone-acetaminophen Take 1-2 Tabs by 15 Tab 0 200906/30/2010 (PERCOCET) 5-325 mg per mouth every 6 hours tablet as needed for Pain. documented as of this encounter Ordered Prescriptions Prescription Sig Dispensed Refills Start Date End Date clindamycin (CLEOCIN) 300 Take 1 Cap by mouth 28 Cap 0 0 04/14/2010 06/30/2010 mg capsule 3 times daily. oxycodone-acetaminophen Take 1-2 Tabs by 15 Tab 0 200906/30/2010 (PERCOCET) 5-325 mg per mouth every 6 hours tablet as needed for Pain. documented in this encounter Discharge Disposition Disposition Code Departure Means Destination Home or Self Prison documented in this encounter ED Notes Ralph Nicole Jr., MIS - 04/14/2010 1707 EDT Images from the original note were not included. DOS: 04/14/2010 Chief Complaint Patient presents with ??? Dental Pain wisdom tooth cracked 2 weeks ago. L upper. no facial swelling. The patient is a 34 y.o. male who presents today with Dental Pain The history is provided by the patient (pt arrives with severe dental pain, cracked left molar 2 weeks ago, pain severe today). Dental Pain This is a new problem. The problem has been rapidly worsening. The pain is severe. He has tried nothing for the symptoms. Review of Systems HENT: Positive for dental problem. Negative for sore throat, facial swelling, drooling, mouth sores,trouble swallowing, neck pain and voice change. Musculoskeletal: Negative for back pain and arthralgias. 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 External auditory canal reconstruction Allergies Allergen Reactions ??? Keflex (Cephalexin) Nausea And Vomiting History Substance Use Topics ??? Tobacco Use: Yes -- 2.0 packs/day ??? Alcohol Use: No History reviewed. No pertinent family history. Vital Signs Temp: 36.5 ??C (97.7 ??F) Temp src: Tympanic Pulse: 79 Resp: 20 BP: 149/90 mmHg BP Device: BP Machine Patient Position: Sitting O2 Device: None (Room air) Physical Exam Constitutional: He appears well-developed and well-nourished. He appears diaphoretic. He appears distressed. HENT: Head: Normocephalic and atraumatic. Right Ear: External ear normal. Left Ear: External ear normal. Mouth/Throat: Oropharynx is clear and moist and mucous membranes are normal. No oropharyngeal exudate, posterior oropharyngeal edema, posterior oropharyngeal erythema or tonsillar abscesses. Eyes: Pupils are equal, round, and reactive to light. Neck: Normal range of motion. Neck supple. Skin: He is diaphoretic. Radiology orders: None Procedures ED Course: Dental block with .5% marcaine with good relief, meds as directed Discharge Prescriptions New Prescriptions CLINDAMYCIN (CLEOCIN) 300 MG CAPSULE Take 1 Cap by mouth 3 times daily. OXYCODONE-ACETAMINOPHEN (PERCOCET) 5-325 MG PER TABLET Take 1-2 Tabs by mouth every 6 hours as needed for Pain. MDM Encounter Diagnoses Code Name Primary? Qualifier ??? 525.9V Dentalgia PCP: LUCILLE POLANCO MD 04/14/2010 5:10 PM ED Attending Available for Supervision: Jyothi Rosas documented in this encounter Miscellaneous Notes Scanned Note-Null - Inpatient, MD Sushma - 04/14/2010 0000 EDT documented in this encounter Plan of Treatment Upcoming Encounters Date Type Specialty Care Team Description 05/08/2022 Telemedicine Sleep Medicine El Sinclair Jr., MD [address] [facility], [address] 2 [place], [place] [address] (Wo rk) documented as of this encounter Visit Diagnoses Diagnosis Dentalgia Unspecified disorder of the teeth and shay pporting structures documented in this encounter Care Teams Green End Worker Relationship Specialty Start Date End Date Lucille Polacno MD PCP - General 03/17/10 06/29/[address] [address] documented as of this encounter
--- OUTSIDE RECORDS SUMMARY | 2022-03-21 09:37 | XMS_ITS | Encounter Summary ---
:1975 Author Organization [facility] Address [address] [place] [address] Care Team Providers Name Role Phone Galo Bello MD Primary Care Provider Reason for Visit Reason Comments Neck Pain Patient states,I picked up my daughter on Sunday night and heard a pop and now here with right arm numb paul with index and thumb difficulties Encounter Details Date Type Department Care Team Description 02/21/2011 Emergency [facility] Francisco Chanel MD [address] [place] [address], [address] [place] [address] Cervical strain; Emergency Department - Emergency, MD Fabio Neck pain [address] [address] Social History Tobacco Use Types Packs/Day Years Used Date Current Every Day Smoker 1 17 Smokeless Tobacco: Never Used Alcohol Use Standard Drinks/Week Comments Yes 0 (1 standard drink = 0.6 oz pure alcoho l) Sex Assigned at Date Recorded Not on file documented as of this encounter Last Filed Vital Signs Vital Sign Reading Time Taken Comments Blood Pressure 122/84 02/21/2011 1309 EDT Pulse 98 02/21/2011 1526 EDT Temperature 36.1 ??C (97 ??F) 02/21/2011 1309 EDT Respiratory Rate 16 02/21/2011 1526 EDT Oxygen Saturation 98% 02/21/2011 1309 EDT Inhaled Oxygen Concentration - - Weight 127 kg (280 lb) 02/21/2011 1309 EDT Height 193 cm (6' 4) 02/21/2011 1309 EDT Body Mass Index 34.08 02/21/2011 1309 EDT documented in this encounter Discharge Instructions InstructionsFrancisco Chanel MD - 02/21/2011 Take medications as instructed. Followup with your primary care physician as needed. Return if symptoms worsen or new symptoms develop. AttachmentsThe following attachments cannot be sent through Care Everywhere.NECK PAIN: AFTER YOUR VISIT (MARTINIQUAIS)documented in this encounter Medications at Time of Discharge Medication Sig Dispensed Refills Start Date End Date cyclobenzaprine (FLEXERIL) Take 1 Tab by 15 Tab 0 201004/23/2012 5 mg tablet mouth 3 times daily as needed for Muscle Spasms. hydrocodone-acetaminophen Take 1 Tab by 15 Tab 0 011 04/23/2012 (VICODIN) 5-500 mg per mouth every 4 tablet hours. ibuprofen (MOTRIN) 600 mg Take 1 Tab by 20 Tab 0 011 04/19/2011 tablet mouth 3 times daily. ibuprofen (MOTRIN) 600 mg Take 1 Tab by 28 Tab 0 010 04/23/2012 tablet mouth every 6 hours as needed for Pain. documented as of this encounter Ordered Prescriptions Prescription Sig Dispensed Refills Start Date End Date hydrocodone-acetaminophen Take 1 Tab by 15 Tab 0 011 04/23/2012 (VICODIN) 5-500 mg per mouth every 4 tablet hours. cyclobenzaprine (FLEXERIL) Take 1 Tab by 15 Tab 0 201004/23/2012 5 mg tablet mouth 3 times daily as needed for Muscle Spasms. ibuprofen (MOTRIN) 600 mg Take 1 Tab by 20 Tab 0 011 04/19/2011 tablet mouth 3 times daily. documented in this encounter Discharge Disposition Disposition Code Departure Means Destination Comments Home or Self Care Car Home being driv en home by friend documented in this encounter ED Notes Francisco Chanel MD - 02/21/2011 1429 EDT DOS: 02/21/2011 Chief Complaint Patient presents with ??? Neck Pain Patient states,I picked up my daughter on Sunday night and heard a pop and now here with right armnumbnes with index and thumb difficulties The patient is a 35 y.o. male who presents today with Neck Pain HPI Comments: The patient is a 35-year-old male who presents with chief complaint of neck pain. Patient states that he has a history of chronic neck pain that began approximately 6 years ago. On he picked up his daughter he developed the sudden onset of worsening neck pain. The pain now rad iates into his right arm. Patient denies any weakness, numbness or tingling. Patient describes severe pain.patient denies any fevers or chills. Patient now presents for further evaluation and treatment. The history is provided by the patient. Neck Pain This is a recurrent problem. The current episode started more than 2 days ago. The problem occurs constantly. The problem has not changed since onset. The pain is associated with twisting and lifting aheavy object. There has been no fever. The pain is present in the right side. The pain radiates to the right arm. The pain is severe. The symptoms are aggravated by position. Pertinent negatives include no photophobia, no visual change, no chest pain, no syncope, no numbness, no headaches, no paresis,no tingling and no weakness. He has tried NSAIDs for the symptoms. Review of Systems Constitutional: Negative for fever, diaphoresis and fatigue. HENT: Positive for hearing loss, neck pain and neck stiffness. Negative for nosebleeds, sore throat,facial swelling, mouth sores and sinus pressure. Eyes: Negative for photophobia and visual disturbance. Respiratory: Negative for chest tightness, shortness of breath and wheezing. Cardiovascular: Negative for chest pain and syncope. Gastrointestinal: Negative for nausea, vomiting and diarrhea. Genitourinary: Negative for dysuria, urgency, hematuria and flank pain. Musculoskeletal: Cervical spine pain Skin: Negative for rash. Neurological: Negative for dizziness, tingling, facial asymmetry, weakness, numbness and headaches. Hematological: Negative. Psychiatric/Behavioral: Negative. The patient is not nervous/anxious. All other systems reviewed and are negative. [...] No pertinent family history. Vital Signs Temp: 36.1 ??C (97 ??F) Temp src: Tympanic Pulse: 96 Resp: 16 SpO2: 98 % SpCO: 2 % BP: 122/84 mmHg BP Device: BP Machine Patient Position: Sitting BP Cuff Location: Left arm O2 Device: None (Room air) Physical Exam Nursing note and vitals reviewed. Constitutional: He is oriented to person, place, and time. He appears well- developed and well-nourished. No distress. HENT: Head: Normocephalic and atraumatic. Right Ear: External ear normal. Left Ear: External ear normal. Nose: Nose normal. Mouth/Throat: Oropharynx is clear and moist. Eyes: Conjunctivae and extraocular motions are normal. Pupils are equal, round, and reactive to light. Left eye exhibits no discharge. Neck: Patient states it is painful to move his neck Slight paraspinal muscle spasm Nontender cervical spine,has slight paraspinal muscle tenderness Cardiovascular: Normal rate, regular rhythm, normal heart sounds and intact distal pulses. Pulmonary/Chest: Effort normal and breath sounds normal. No respiratory distress. Abdominal: Soft. Bowel sounds are normal. No tenderness. Musculoskeletal: Normal range of motion. He exhibits no edema. Neurological: He is alert and oriented to person, place, and time. He has normal strength and normalreflexes. He is not disoriented. No cranial nerve deficit or sensory deficit. Coordination normal. Skin: Skin is warm and dry. No rash noted. Psychiatric: He has a normal mood and affect. Radiology orders: CERVICAL SPINE 2-3 VIEWS CERVICAL SPINE 4 OR MORE VIEWS (Results Pending) CERVICAL SPINE 2-3 VIEWS (Results Pending) Procedures ED Course: A medical screening exam was performed. The patient is a 35-year-old male reportedly with a six-yearhistory of neck pain who presents with a 5 day history of an exacerbation of his chronic neck pain. Patient states he twisted to his right to package pick up his infant daughter and developed severe pain in his back but now radiates to his right arm. Is described as sharp and stabbing. Patient denies weaknessparesthesias. Physical exam-patient with mild right paraspinal tenderness and a nonfocal neurologic exam. Cervical spine d-mcy-[id number] of fracture. Patient discharged home Disposition: Discharged The patient's pain was managed to an adequate level weighing risk vs. benefit of further medications. Upon departure from the Emergency Department, the patient's pain was 1 on a zero to ten scale. Condition at departure from the Emergency Department: Improved Discharge Prescriptions New Prescriptions CYCLOBENZAPRINE (FLEXERIL) 5 MG TABLET Take 1 Tab by mouth 3 times daily as needed for Muscle Spasms. HYDROCODONE-ACETAMINOPHEN (VICODIN) 5-500 MG PER TABLET Take 1 Tab by mouth every 4 hours. IBUPROFEN (MOTRIN) 600 MG TABLET Take 1 Tab by mouth 3 times daily. MDM Number of Diagnoses or Management Options Cervical strain: new, needed workup Neck pain: new, needed workup Amount and/or Complexity of Data Reviewed Tests in the radiology section of CPT??: ordered and reviewed Discussion of test results with the performing providers: yes (radiologist) Decide to obtain previous medical records or to obtain history from someone other than the patient: yes Independent visualization of images, tracings, or specimens: yes (Cervical spine x-ray) Risk of Complications, Morbidity, and/or Mortality Presenting problems: moderate Diagnostic procedures: moderate Management options: moderate General comments: 4 Patient Progress Patient progress: stable 1. Cervical strain (847.0P) 2. Neck pain (723.1B) PCP: Galo Bello MD, MD 02/21/2011 15:09 documented in this encounter Miscellaneous Notes Scanned Note-Null - Histology Manager, Scan - 02/21/2011 0000 EDT documented in this encounter Plan of Treatment Upcoming Encounters Date Type Specialty Care Team Description 05/08/2022 Telemedicine Sleep Medicine El Sinclair Jr., MD [address] [place] [address] [address] [place], [place] [address] (Wo rk) documented as of this encounter Procedures Procedure Name Priority Date/Time Associated Diagnosis Comme nts CERVICAL SPINE 2-3 02/21/2011 14:52 Resul ts for this VIEWS EDT procedure are i n the results section. documented in this encounter Results CERVICAL SPINE 2-3 VIEWS (02/21/2011 14:52 EDT) Anatomical Region Laterality Modality Other Specimen Narrative [facility] - 02/21/2011 17:08 EDT CERVICAL SPINE 2-3 VIEWS ??Feb 21, 2011 02:52:00 PM Clinical History/Comments: NECK PAIN ord er changed to c spine 2-[address] Chanel, order read back a nd verified @ 1430, ANTONIO Comparison: No comparison Findings: No bone, joint or soft tissue injury see n. Slight reversal of the normal cervical lordosis. MRI recommende d if focal neurological symptoms exist. Procedure Note 02/21/2011 CERVICAL SPINE 2-3 VIEWS Feb 21, 2011 02 :52:00 PM Clinical History/Comments: NECK PAIN ord er changed to c spine 2-[address] Chanel, order read back a nd verified @ 1430, ANTONIO Comparison: No comparison Findings: No bone, joint or soft tissue injury see n. Slight reversal of the normal cervical lordosis. MRI recommende d if focal neurological symptoms exist. Performing Organization Address City/State/ZIP Code Phon e Number [facility] documented in this encounter Visit Diagnoses Diagnosis Cervical strain Sprain of neck Neck pain Cervicalgia documented in this encounter Administered Medications Inactive Administered Medications - up to 3 most recent administrations Medication Order MAR Action Action Date Dose Rate Site hydrocodone-acetaminophen Given 02/21/2011 15:26 EDT 1 Tablet (LORTAB;VICODIN) 5-500 mg per tablet 1 Tab 1 Tablet, oral, NOW X1, 1 dose, On Sun02/21/11 at 1530, STAT documented in this encounter Discontinued Medications Medication Sig Discontinue Reason Start Date End Date ondansetron (ZOFRAN) 4 mg Take 1 Tab by mouth 09/05/20 10 02/21/2011 tablet every 8 hours as needed for Nausea. documented as of this encounter Active and Recently Administered Medications Times are shown in EDT. Scheduled Medication Order 02/19/2011 02/20/2011 02/21/2011 hydrocodone-acetaminophen (LORTAB;VICODI N) 5-500 mg per tablet 1 Tab (COMPLETED) 1526 (Given - Provid er: Steve Rodgers RN) 1 Tablet, oral, NOW X1, 1 dose, On Sun02/21/11 at 1530, STAT documented in this encounter Care Teams Internet Marketing Assistant Relationship Specialty Start Date End Date Galo Bello MD PCP - General 06/30/10 08/27/[address] [place] [id number] documented as of this encounter
--- OUTSIDE RECORDS SUMMARY | 2022-03-21 09:37 | XMS_ITS | Encounter Summary ---
:1975 Author Organization [facility] Address [address] [place] [address] Care Team Providers Name Role Phone None, Provider Primary Care Provider Unavailable Reason for Visit Reason Comments Chest Pain was having pain last night w hich passed today having dull pain, nausea, SOB Encounter Details Date Type Department Care Team Description 04/23/2012 Emergency [facility] Emergency Yara Archibald MD Chest pain Department - Main [facility] Emergency, MD Fabio [address] [place] [address] Social History Tobacco Use Types Packs/Day Years Used Date Current Every Day Smoker 1 17 Smokeless Tobacco: Never Used Alcohol Use Standard Drinks/Week Comments Yes 0 (1 standard drink = 0.6 oz pure alcoho l) Sex Assigned at Date Recorded Not on file documented as of this encounter Last Filed Vital Signs Vital Sign Reading Time Taken Comments Blood Pressure 133/87 04/23/2012 1542 EDT Pulse 106 04/23/2012 1542 EDT Temperature 36.5 ??C (97.7 ??F) 04/23/2012 1542 EDT Respiratory Rate 16 04/23/2012 1542 EDT Oxygen Saturation 98% 04/23/2012 1542 EDT Inhaled Oxygen Concentration - - Weight 153.3 kg (338 lb) 04/23/2012 1544 EDT Height 193 cm (6' 4) 04/23/2012 1542 EDT Body Mass Index 41.14 04/23/2012 1542 EDT documented in this encounter Discharge Instructions AttachmentsThe following attachments cannot be sent through Care Everywhere. CHEST PAIN: AFTER YOUR VISIT (FILIPINO)documented in this encounter Medications at Time of [...] 04/23/2012 03/29/2016 tablet 3 times daily. documented in this encounter Discharge Disposition Disposition Code Departure Means Destination Home or Self Care documented in this encounter H&P Notes Serina Aceves MD - 04/23/20122047 EDT Cardiology Consult Note Admit Date: 04/23/2012 Date of Service: 04/23/2012 Requesting Physician: Dr. Archibald Specialty Completing Consult: Cardiology Reason for Consult: Chest discomfort/fluttering HPI:(include onset,location,quality,severity, duration, timing, associating symptoms) 36 y/o obese man who presents after onset of feeling his heart racing with associated dyspnea on awakening yesterday night. He can not define how long these symptoms lasted for. He went back to bed andawoke with a cramping chest discomfort which was present for most of the day. It did not have an exertional component or pleuritic component. He did feel that it improved with leaning forward. He notesnausea and abdominal cramping at 130 pm which were self limited symptoms. He notes that his daughterhad a viral illness 2 days ago. He denies fever, chills, orthopnea, and lower extremity swelling. 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 External auditory canal reconstruction Social History Family History History Substance Use Topics ??? Smoking status: Current Everyday Smoker -- 1.0 packs/day for 17 years ??? Smokeless tobacco: Never Used ??? Alcohol Use: Yes Mother with CAD in her late 20s. Half brother with CAD in his 50s. Medications No current facility-administered medications for this encounter. Current Outpatient Prescriptions Medication Sig Dispense Refill ??? ibuprofen (MOTRIN) 600 mg tablet Take 1 Tab by mouth 3 times daily. 30 Tab 0 Allergies Allergies Allergen Reactions ??? Keflex (Cephalexin) Nausea And Vomiting Review of Systems: 10 point ROS is noted in the HPI and is otherwise negative. Objective/Physical Exam: VS: Patient Vitals for the past 8 hrs: BP Pulse Resp Temp SpO2 08/14/12 1542 133/87 mmHg 106 16 36.5 ??C (97.7 ??F) 98 % Exam: BP 133/87 Pulse 106 Temp(Src) 36.5 ??C (97.7 ??F) (Tympanic) Resp 16 Ht 193 cm (76) Wt 153.316 kg (338 lb) BMI 41.14 kg/m2 SpO2 98% Obese NAD A&O x3 Sclera anicteric No JVP elevation CTA b/l RRR, nml s1, s2, no murmurs, 2+ peripheral pulses, no rub Abd: soft, NT, ND Ext: warm, no edema Neuro: non-focal Skin: no new lesions Data Review: Labs reviewed. Trop I - nml (1646) ECG: Normal sinus rhythm with low voltage Assessment: 36 y/o man with a family history of CAD who presented with atypical chest discomfort, no ischemic changes on ECG, and a negative set of cardiac biomarkers (pain > 6hrs). Chest discomfort is less likely to be cardiac, however, would schedule outpatient stress test given patients family history of CAD. Recommendations: Ok to discharge home with outpatient cardiac PET/CT (ordered) SERINA ACEVES MD 04/23/2012 20:48 documented in this encounter Procedure Notes RECRE[facility] CENTER DIRECTOR, SCAN 2 - 05/07/2012 0749 EDTAssociated Order(s): ECG REPORT - SCANNED documented in this encounter ED Notes Angie Han RN - 04/23/2012 192 EDT IV removed by pt. Massimo Gerard MD - 04/23/2012 190 EDT DOS: 04/23/2012 Chief Complaint Patient presents with ??? Chest Pain was having pain last night which passed today having dull pain, nausea, SOB The patient is a 36 y.o. male who presents today with Chest Pain HPI Comments: 36-year-old male with a history of tobacco abuse who comes emergency Department havingchest pain since 8 this morning. Patient also awoke last night with some chest discomfort some diaphoresis and some left arm discomfort. He denies fever chills nausea vomiting currently. He states the pain was heavier last night now has minimal. Patient without any history of cardiovascular disease inthe past. The history is provided by the patient. Chest Pain Review of Systems Cardiovascular: Positive for chest pain. All other systems reviewed and are negative. [...] ??C (97.7 ??F) Temp src: Tympanic Pulse: 106 Resp: 16 SpO2: 98 % SpCO: 7 % BP: 133/87 mmHg BP Device: BP Machine Patient Position: Sitting BP Cuff Location: Left arm O2 Device: None (Room air) Physical Exam Nursing note and vitals reviewed. Constitutional: He is oriented to person, place, and time. He appears well- developed and well-nourished. HENT: Head: Normocephalic and atraumatic. Mouth/Throat: Oropharynx is clear and moist. Eyes: Conjunctivae and EOM are normal. Pupils are equal, round, and reactive to light. Neck: Normal range of motion. Neck supple. Cardiovascular: Normal rate, regular rhythm, normal heart sounds and intact distal pulses. Pulmonary/Chest: Effort normal and breath sounds normal. He has no wheezes. He has no rales. Abdominal: Soft. Bowel sounds are normal. There is no tenderness. There is no rebound and no guarding. Musculoskeletal: Normal range of motion. He exhibits no edema and no tenderness. Neurological: He is alert and oriented to person, place, and time. No cranial nerve deficit. Skin: Skin is warm and dry. Psychiatric: He has a normal mood and affect. His behavior is normal. Radiology orders: CHEST PA AND LATERAL CHEST PA AND LATERAL Final result not shown here.: PORTABLE CHEST 1 VIEW (Results Pending) EKG 12-LEAD (Results Pending) Procedures ED Course: A medical screening exam was performed. Labs Reviewed PROFILE ED CARDIAC PACK - Abnormal; Notable for the following: RDW-CV 14.9 (*) All other components within normal limits Chest x-ray read by radiology as questionable infiltrate in the left lower lobe, read by me clinically I disagree and believe this to be more of atelectasis-type picture. EKG: Normal EKG. Normal sinus rhythm. Normal P waves. Normal JF. Normal QRS complex. Normal axis. Normal ST and T waves. No acute ischemia. The study has been independently viewed by me. The study hasbeen interpreted contemporaneously. The EKG appears to be a good tracing. Consult cardiology will set up outpatient stress test tomorrow patient to go home Disposition: Discharged The patient's pain was managed to an adequate level weighing risk vs. benefit of further medications. Upon departure from the Emergency Department, the patient's pain was 0 on a zero to ten scale. Condition at departure from the Emergency Department: Improved Discharge Prescriptions New Prescriptions No Discharge Prescriptions for this patient MDM Number of Diagnoses or Management Options Chest pain: Diagnosis management comments: 5 Amount and/or Complexity of Data Reviewed Clinical lab tests: ordered and reviewed Tests in the radiology section of CPT??: ordered and reviewed Tests in the medicine section of CPT??: ordered and reviewed Discuss the patient with other providers: yes Independent visualization of images, tracings, or specimens: yes 1. Chest pain PCP: No PCP 04/23/2012 19:10 Angie Craig RN - 04/23/2012 1848 EDT Cards in to see pt. Angie Craig RN - 04/23/2012 1815 EDT Pt updated that [facility] will be seeing him. Gina Vazquez RN - 04/23/2012 1649 EDT Blood drawn via saline lock per protocol, rainbow tube(s) sent to lab per order. documented in this encounter Miscellaneous Notes Scanned Note-Null - RECREATION CENTER DIRECTOR, SCAN 2 - 04/25/2012 0930 EDT documented in this encounter Plan of Treatment Upcoming Encounters Date Type Specialty Care Team Description 05/08/2022 Telemedicine Sleep Medicine El Sinclair Jr., MD [address] [place] [address] [address] [place] [address] (Wo rk) documented as of this encounter Procedures Procedure Name Priority Date/Time Associated Diagnosis Comme nts ECG REPORT - 05/07/2012 7:49 EDT Results for this SCANNED procedure are i n the results section. CHEST PA AND STAT 04/23/2012 17:12 Results for this LATERAL EDT procedure are i n the results section. PROFILE ED CARDIAC Routine 04/23/2012 16:46 Resul ts for this PACK EDT procedure are i n the results section. EKG 12-LEAD STAT 04/23/2012 15:53 EDT documented in this encounter Results ECG REPORT - SCANNED (05/07/2012 7:49 EDT) Specimen Narrative 05/07/2012 11:04 EDT Procedure Note RECREATION CENTER DIRECTOR, SCAN 2 - 05/07/2012 7:49 EDT CHEST PA AND LATERAL (04/23/2012 17:12 EDT) Anatomical Region Laterality Modality Other Specimen Narrative [facility] - 04/23/2012 18:01 EDT CHEST PA AND LAT ??Apr 23, 2012 05:12:00 PM Signs and Symptoms/Comments: ?? CHEST PA IN Comparison: 09/05/2010. Findings: Frontal and lateral views of t he chest were obtained. The cardiomediastinal silhouette is normal. Pulmonary vasculature is normal. The right lung is clear. There a re nonspecific opacities the left lung base, near the left cardiophre cathie angle, seen only on the PA view. This is a new finding. It is li razia a real finding although could represent superimposed structures. There is no pleural effusion or pneumothorax. The bones and soft tiss ues are unremarkable. Impression: Nonspecific opacities noted at the left lung base as described above. Could represent early p neumonia in the appropriate clinical setting. Recommend x-ray follow up to resolution. Procedure Note 04/23/2012 CHEST PA AND LAT Apr 23, 2012 05:12:00 P M Signs and Symptoms/Comments: CHEST PAIN Comparison: 09/05/2010. Findings: Frontal and lateral views of t he chest were obtained. The cardiomediastinal silhouette is normal. Pulmonary vasculature is normal. The right lung is clear. There a re nonspecific opacities the left lung base, near the left cardiophre cathie angle, seen only on the PA view. This is a new finding. It is li razia a real finding although could represent superimposed structures. There is no pleural effusion or pneumothorax. The bones and soft tiss ues are unremarkable. Impression: Nonspecific opacities noted at the left lung base as described above. Could represent early p neumonia in the appropriate clinical setting. Recommend x-ray follow up to resolution. Performing Organization Address City/State/ZIP Code Phon e Number [facility] (ABNORMAL) PROFILE ED CARDIAC PACK (04/23/2012 16:46 EDT) WBC 9.50 4.0 - 10.4 [facility] RBC 4.67 4.36 - 5.78 [facility] Hemoglobin 13.9 13.8 - 17.3 [facility] gm/dl LAB HCT 40.0 39.5 - 50.2 % [facility] MCV 86 81 - 95 fl [facility] MCH 29.7 27.6 - 33.0 [facility] MCHC 34.7 32.8 - 36.4 [facility] gm/dl LAB PLT 247 141 - 320 [facility] RDW-CV 14.9 (H) 11.8 - 14.1 % [facility] Neutrophils 60.9 45.5 - 79.7 % [facility] Lymphocytes 32.0 15.0 - 46.8 % [facility] Monocytes 5.3 1.8 - 12.0 % [facility] Eosinophils 1.6 0.6 - 6.9 % [facility] Basophils 0.2 0.2 - 1.4 % [facility] ABS Neutrophils 5.79 2.20 - 8.85 [facility] ABS Lymphs 3.04 1.09 - 3.30 [facility] ABS Monocytes 0.50 0.1 - 0.8 [facility] ABS Eosinophils 0.15 0.03 - 0.61 [facility] ABS Basophils 0.02 0.01 - 0.11 [facility] Type of Diff: Automated [facility] Sodium 142 136 - 145 [facility] mEq/L LAB Potassium 4.2 3.5 - 5.0 [facility] mEq/L LAB Chloride 104 96 - 110 [facility] mEq/L LAB CO2 27 24 - 32 mEq/L [facility] BUN 17 10 - 26 mg/dl [facility] Creatinine 0.87 0.66 - 1.25 [facility] mg/dl LAB GFR, Calculated >60 >60 [facility] ml/min/1.73m2 LAB Glucose, Screening 91 70 - 100 [facility] mg/dl LAB Magnesium 2.1 1.7 - 2.8 [facility] mg/dl LAB CK 99 0 - 250 U/L [facility] MB 0.72 <4.21 ng/ml [facility] Troponin I (ng/mL) <0.034 <0.034 ng/ml [facility] Hold Blue Top Sample for [facility] coagulation will be LAB discarded after 4 hours Specimen Blood specimen (specimen) Performing Organization Address City/State/ZIP Code Phon e Number [facility] [address] [place] [address] SERVICES [facility] [address] [place] [address] documented in this encounter Visit Diagnoses Diagnosis Chest pain Chest pain, unspecified documented in this encounter Administered Medications Inactive Administered Medications - up to 3 most recent administrations Medication Order MAR Action Action Date Dose Rate Site aspirin chewable tablet 324 mg Given 04/23/2012 16:42 EDT 324 mg 324 mg, oral, NOW X1, 1 dose, On Sun04/23/12 at 1645, STAT documented in this encounter Discontinued Medications Medication Sig Discontinue Reason Start Date End Date cyclobenzaprine (FLEXERIL) Take 1 Tab by 02/21/2011 04/23/2012 5 mg tablet mouth 3 times daily as needed for Muscle Spasms. hydrocodone-acetaminophen Take 1 Tab by 02/21/2011 0 04/23/2012 (VICODIN) 5-500 mg per mouth every 4 tablet hours. ibuprofen (MOTRIN) 600 mg Take 1 Tab by 06/30/2010 0 04/23/2012 tablet mouth every 6 hours as needed for Pain. documented as of this encounter Active and Recently Administered Medications Times are shown in EDT. Scheduled Medication Order 04/21/2012 04/22/2012 04/23/2012 aspirin chewable tablet 324 mg (COMPLETED) 1642 (Given - Provider: Gina Salazar RN) 324 mg, Oral, NOW X1, 1 dose, Sun04/23/12 at 1645 documented in this encounter Orders Medications Ordered That Might Not Have Count Last Ord ered Date First Ordered Date Been Administered aspirin chewable tablet 324 mg 1 04/23/2012 EKG Orders Without Results Count Last Ordered Date Fir st Ordered Date EKG 12-LEAD 1 04/23/2012 Nursing Count Last Ordered Date First Ordered Date CARDIAC MONITORING 1 04/23/2012 INSERT PERIPHERAL IV 1 04/23/2012 documented in this encounter Care Teams Torpedo Shooter Relationship Specialty Start Date End Date None, Provider PCP - General 08/29/11 05/05/13 documented as of this encounter
--- OUTSIDE RECORDS SUMMARY | 2022-03-21 09:37 | XMS_ITS | Encounter Summary ---
:1975 Author Organization [facility] Address [address] [place] [address] Care Team Providers Name Role Phone Galo Bello MD Primary Care Provider Reason for Visit Reason Comments Influenza flu like sx. fever,cough,vom iting and malaise Encounter Details Date Type Department Care Team Description 09/05/2010 Emergency [facility] Emergency Eis Maj khan MD [address] [place] [phone] Vomiting; Department - Main [facility] Emergency, MD Fabio Diarrhea; [address] [facility] Dehydration; [place] [address] Leukocytosis [phone] Social History Tobacco Use Types Packs/Day Years Used Date Current Every Day Smoker 1 Smokeless Tobacco: Never Used Alcohol Use Standard Drinks/Week Comments No 0 (1 standard drink = 0.6 oz pure alcoho l) Sex Assigned at Date Recorded Not on file documented as of this encounter Last Filed Vital Signs Vital Sign Reading Time Taken Comments Blood Pressure 112/61 09/05/2010 1205 EST Pulse 101 09/05/2010 1205 EST Temperature 36.3 ??C (97.3 ??F) 09/05/2010 1205 EST Respiratory Rate 18 09/05/2010 1205 EST Oxygen Saturation 96% 09/05/2010 1205 EST Inhaled Oxygen Concentration - - Weight 127 kg (280 lb) 09/05/2010 0932 EST Height - - Body Mass Index - - documented in this encounter Discharge Instructions AttachmentsThe following attachments cannot be sent through Care Everywhere. DEHYDRATION: AFTER YOUR VISIT (NAMIBIAN)DIARRHEA IN ADULTS: AFTER YOUR VISIT (NAMIBIAN)NAUSEA AND VOMITING: AFTER YOUR VISIT (NAMIBIAN)documented in this encounter Medications at Time of Discharge Medication Sig Dispensed Refills Start Date End Date ibuprofen (MOTRIN) 600 mg Take 1 Tab by mouth 28 Tab 0 1 04/23/2012 tablet every 6 hours as needed for Pain. ondansetron (ZOFRAN) 4 mg Take 1 Tab by mouth 10 Tab 0 1 11/06/2009 02/21/2011 tablet every 8 hours as needed for Nausea. documented as of this encounter Ordered Prescriptions Prescription Sig Dispensed Refills Start Date End Date ondansetron (ZOFRAN) 4 mg Take 1 Tab by mouth 10 Tab 0 1 11/06/2009 02/21/2011 tablet every 8 hours as needed for Nausea. documented in this encounter Discharge Disposition Disposition Code Departure Means Destination Home or Self Care Car Home documented in this encounter ED Notes Ramonita Olmedo - 09/06/2010 1004 EST Contacted pt via pt's phone, pt aware to pickling grader RX for PCN today in triage Lesa Coffey MD - 09/06/2010 0935 EST Following up strep culture. Phone # has been disconnected. Will try another modality as step is +. Farrah Reyes RN - 09/05/2010 1037 EST Blood drawn via saline lock per protocol, tiger and purp tube(s) sent to lab per order. Maj Guan MD - 09/05/2010 1004 EST DOS: 09/05/2010 Chief Complaint Patient presents with ??? Influenza flu like sx. fever,cough,vomiting and malaise The patient is a 35 y.o. male who presents today with Influenza HPI Comments: Patient presents with 1.5 day history of palpable fever, profuse nausea and vomiting (no blood), multiple episodes of clear brown diarrheal stool, sore throat, cough, sinus congestion, chills, and diffuse muscle aches. He has had stiffness in all his muscles, mostly his low back and somein his neck. He had a headache on Sunday which was just about gone without analgesia before his arrival this morning. He has been unable to eat or drink since the night of September 03. He has crampy abdominal pain. He has taken no tylenol or ibuprofen or any meds prior to admission. 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 He last had Zithromax in June for an ear infection. He smokes one pack a day, has a history of asthma in the past, no alcohol or substance use, and a Keflex allergy (rash). Patient denies ill contacts. He has not had a flu shot. He does not have a primary care physician. His is concerned that his symptoms may be due to Austin consumed on , she noted blood in the gravy but did not serve him any pink meat. Influenza The current episode started 2 days ago. The problem occurs frequently. The problem has not changed since onset. The problem is moderate. Nothing relieves the symptoms. Nothing aggravates the symptoms. Associated symptoms include a fever, abdominal pain (crampy), diarrhea, vomiting, congestion, headaches (yesterday, now gone), rhinorrhea, sore throat, muscle aches and cough. Pertinent negatives include no photophobia, no neck stiffness and no rash. The history is provided by the patient and the spouse. Review of Systems Constitutional: Positive for fever. Negative for chills. HENT: Positive for congestion, sore throat and rhinorrhea. Negative for neck stiffness. Eyes: Negative for photophobia and visual disturbance. Respiratory: Positive for cough. Negative for shortness of breath. Cardiovascular: Negative for chest pain. Gastrointestinal: Positive for vomiting, abdominal pain (crampy) and diarrhea. Genitourinary: Negative for dysuria. Musculoskeletal: Positive for myalgias. Skin: Negative for rash. Neurological: Positive for headaches (yesterday, now gone). Psychiatric/Behavioral: Negative for confusion. All other systems reviewed and are negative. 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 External auditory canal reconstruction Allergies Allergen Reactions ??? Keflex (Cephalexin) Nausea And Vomiting History Substance Use Topics ??? Tobacco Use: Yes -- 1.0 packs/day ??? Alcohol Use: No History reviewed. No pertinent family history. Vital Signs Temp: 37.6 ??C (99.7 ??F) Temp src: Oral Pulse: 133 Resp: 16 SpO2: 97 % BP: 117/74 mmHg BP Device: BP Machine Patient Position: Sitting BP Cuff Location: Left arm O2 Device: None (Room air) Physical Exam Nursing note and vitals reviewed. Constitutional: He is oriented to person, place, and time. He appears well- developed and well-nourished. flushed HENT: Head: Normocephalic and atraumatic. Right Ear: External ear normal. Left Ear: External ear normal. Nose: Nose normal. 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 No purulent discharge. Oropharyngeal erythema, no ROOF DESIGNER, no exudate, very dry mucosa. Eyes: Pupils are equal, round, and reactive to light. Right eye exhibits no discharge. Left eye exhibits no discharge. Neck: Normal range of motion. Neck supple. No tracheal deviation present. Supple with no meningismus. Cardiovascular: Regular rhythm and normal heart sounds. tachycardic Pulmonary/Chest: Effort normal and breath sounds normal. No respiratory distress. Abdominal: Soft. He exhibits no distension. No tenderness. Genitourinary: Penis normal. Musculoskeletal: Normal range of motion. He exhibits no edema and no tenderness. Lymphadenopathy: He has no cervical adenopathy. Neurological: He is alert and oriented to person, place, and time. He has normal strength. He is notdisoriented. No sensory deficit. Skin: Skin is warm and dry. No rash noted. Psychiatric: He has a normal mood and affect. Radiology orders: CHEST PA AND LATERAL CHEST PA AND LATERAL (Results Pending) Procedures ED Course: CXR negative for infiltrate. Throat cx sent. Flu swab sent. After 3 L of fluid,antipyretics and zofran patient feels very much better. He is taking p.o: ate A full lunch Without emesis. He denies pain.Repeat abdominal exam is entirely nontender. Discharge Prescriptions New Prescriptions ONDANSETRON (ZOFRAN) 4 MG TABLET Take 1 Tab by mouth every 8 hours as needed for Nausea. 09/05/2010 15:03: Single diarrheal stool. Feels well. Appears nontoxic . Waiting urine Labs Reviewed SCREENING GLUCOSE - Abnormal; Notable for the following: ??? Glucose, Screening 108 (*) All other components within normal limits HEMAGRAM AND DIFFERENTIAL - Abnormal; Notable for the following: ??? WBC 15.06 (*) ??? RDW-CV 14.9 (*) ??? Neutrophils 83.0 (*) ??? Lymphocytes 8.0 (*) ??? ABS Neutrophils 12.50 (*) ??? ABS Monocytes 1.36 (*) All other components within normal limits POCT URINE DIPSTICK - Abnormal; Notable for the following: ??? Bilirubin, UA 2+ (*) ??? Ketones, UA Trace (*) ??? Protein, UA 1+ (*) ??? Nitrite, UA Positive (*) All other components within normal limits ELECTROLYTES BUN CREATININE LIVER FUNCTION TESTS PHARYNGITIS CULTURE URINE MICROSCOPIC ONLY VIROLOGY DETECTION BACTERIAL CULTURE, FECES Smiling, ambulating without distress in ortiz, moves easily, hungry, states nothing hurts, no headache, no abdominal pain, wants to go. Return precautions and followup plan given. MDM Number of Diagnoses or Management Options Dehydration: Diarrhea: Leukocytosis: Vomiting: Diagnosis management comments: 4 1. Vomiting (787.03B) 2. Diarrhea (787.91) 3. Dehydration (276.51) 4. Leukocytosis (288.60C) PCP: Galo Bello MD, MD 09/05/2010 10:04 documented in this encounter Miscellaneous Notes Scanned Note-Null - Inpatient, MD Sushma - 09/05/2010 0000 EST documented in this encounter Plan of Treatment Upcoming Encounters Date Type Specialty Care Team Description 05/08/2022 Telemedicine Sleep Medicine El Sinclair Jr., MD 1 [facility] [address] [place], [place] [phone] (Wo rk) documented as of this encounter Procedures Procedure Name Priority Date/Time Associated Comments Diagnosis URINE SEDIMENT STAT 09/05/2010 15:57 Results f or this (MICRO) WITHOUT EST procedure ar e in REFLEX TO CULTURE the result s section. POCT URINE DIPSTICK, STAT 09/05/2010 15:33 Res ults for this CLINITEK EST procedure are i n the results section. BACTERIAL CULTURE, Routine 09/05/2010 14:12 Resul ts for this FECES EST procedure are i n the results section. GROUP A STREP CULTURE Routine 09/05/2010 13:55 Re sults for this EST procedure are i n the results section. VIROLOGY DETECTION STAT 09/05/2010 10:32 Resul ts for this EST procedure are i n the results section. SCREENING GLUCOSE STAT 09/05/2010 10:15 Result s for this EST procedure are i n the results section. COMPLETE BLOOD COUNT STAT 09/05/2010 10:15 Res ults for this AND DIFFERENTIAL EST procedure a re in the results section. BUN STAT 09/05/2010 10:15 Results for this EST procedure are i n the results section. CREATININE STAT 09/05/2010 10:15 Results for this EST procedure are i n the results section. HEPATIC FUNCTION STAT 09/05/2010 10:15 Results for this PANEL (ALB,ALK EST procedure are in PHOS,ALT,AST,DBIL,TOT the re sults DELMA,TOT PROT) section. ELECTROLYTES STAT 09/05/2010 10:15 Results for this EST procedure are i n the results section. CHEST PA AND LATERAL STAT 09/05/2010 10:11 Res ults for this EST procedure are i n the results section. documented in this encounter Results URINE MICROSCOPIC ONLY (09/05/2010 15:57 EST) WBC, UA 1 to 5 0 - 5 /HPF [facility] RBC, UA less than 1 0 - 5 /HPF [facility] Squam Epithel, UA None seen NS /HPF [facility] Renal Epithel, UA None seen NS /HPF [facility] Bacteria, UA None seen NS /HPF [facility] Crystals, UA None seen /HPF [facility] Hyaline Casts, UA 2 to 10 Hyaline /LPF [facility] UA Comment Microscopic results [facility] are unreliable on LAB urines unrefrig >2hrs or refrig >8hrs. Mucus, UA Present [facility] Specimen Urine (substance) Performing Organization Address City/[facility]/ZIP Code Phon e Number [facility] [address] [place] [address] SERVICES [facility] [address] [place] [address] (ABNORMAL) POCT URINE DIPSTICK (09/05/2010 15:33 EST) Pathologist Sig nature Color, UA Dark Na [facility] Clarity, UA Clear [facility] Glucose, UA Negative Negative mg/dL [facility] Bilirubin, UA 2+ (A) Negative [facility] Ketones, UA Trace (A) Negative mg/dL [facility] Spec Grav, UA 1.025 1.010, 1.015, [facility] 1.020, 1.025 Blood, UA Negative Negative [facility] pH, UA 6.0 4.6 - 8.0 [facility] Protein, UA 1+ (A) Negative mg/dL [facility] Urobilinogen, UA 1.0 0.2 - 1.0 E.U./dL [facility] Nitrite, UA Positive (A) Negative [facility] Leuk Esterase Negative Negative [facility] Comment [facility] Specimen Urine (substance) Performing Organization Address [facility] Phon e Number [facility] POINT OF CARE POINT OF CARE BACTERIAL CULTURE, FECES (09/05/2010 14:12 EST) Specimen Description Feces [facility] Result No Salmonella, [facility] Shigella, Campylobacter, Yersinia, or E. coli O157:H7 isolated Report Status Final [facility] 09/08/2010 Specimen Other (qualifier value) Performing Organization Address City/[facility]/ZIP Code Phon e Number [facility] [address] [place] [address] SERVICES [facility] [address] [place] [address] PHARYNGITIS CULTURE (09/05/2010 13:55 EST) Specimen Description Throat [facility] Result Few STREPTOCOCCUS, [facility] BETA HEMOLYTIC GROUP A (STREPTOCOCCUS PYOGENES) Report Status Final [facility] 09/06/2010 Specimen Other (qualifier value) Performing Organization Address [facility]/ZIP [facility] Phon e Number [facility] [address] [place] [address] SERVICES [facility] [address] [place] [address] VIROLOGY DETECTION (09/05/2010 10:32 EST) Specimen Description Nares [facility] Result No RSV, Influenza [facility] A, or Influenza B detected by PCR. Report Status Final [facility] 09/07/2010 Specimen Performing Organization Address [facility] Phon e Number [facility] [address] [place] [address] SERVICES [facility] [address] [place] [address] (ABNORMAL) HEMAGRAM AND DIFFERENTIAL (09/05/2010 10:15 EST) Pathologist Sig nature WBC 15.06 (H) 4.0 - 10.4 K/cmm [facility] RBC 5.02 4.36 - 5.78 M/cmm [facility] Hemoglobin 15.0 13.8 - 17.3 gm/dl [facility] HCT 44.0 39.5 - 50.2 % [facility] MCV 88 81 - 95 fl [facility] MCH 30.0 27.6 - 33.0 pg [facility] MCHC 34.1 32.8 - 36.4 gm/dl [facility] PLT 207 141 - 320 K/cmm [facility] RDW-CV 14.9 (H) 11.8 - 14.1 % [facility] Neutrophils 83.0 (H) 45.5 - 79.7 % [facility] Lymphocytes 8.0 (L) 15.0 - 46.8 % [facility] Monocytes 9.0 1.8 - 12.0 % [facility] ABS Neutrophils 12.50 (H) 2.20 - 8.85 K/cmm [facility] ABS Lymphs 1.20 1.09 - 3.30 K/cmm [facility] ABS Monocytes 1.36 (H) 0.1 - 0.8 K/cmm [facility] RBC Morphology Normal [facility] Type of Diff: Manual [facility] Specimen Blood specimen (specimen) Performing Organization Address [facility] Phon e Number [facility] [address] [place] [address] SERVICES [facility] [address] [place] [address] (ABNORMAL) SCREENING GLUCOSE (09/05/2010 10:15 EST) Pathologist Sig nature Glucose, Screening 108 (H) 70 - 100 mg/dl [facility] Specimen Blood specimen (specimen) Performing Organization Address City/[facility]/ZIP Code Phon e Number [facility] [address] [place] [address] SERVICES [facility] [address] [place] [address] LIVER FUNCTION TESTS (09/05/2010 10:15 EST) Pathologist Sig nature Albumin 3.9 3.4 - 4.9 g/dl [facility] Total Protein 7.2 6.5 - 8.3 g/dl [facility] Total Alkaline 96 38 - 126 U/L [facility] Phosphatase ALT 32 21 - 72 U/L [facility] AST 18 15 - 46 U/L [facility] Unconjugated Bilirubin 0.7 0.1 - 1.1 mg/dl [facility] Conjugated Bilirubin 0.0 0.0 - 0.3 mg/dl [facility] B Bilirubin, Total 1.0 0.2 - 1.3 mg/dl [facility] Specimen Blood specimen (specimen) Performing Organization Address [facility]/ZIP Code Phon e Number [facility] [address] [place] [address] SERVICES [facility] [address] [place] [address] CREATININE (09/05/2010 10:15 EST) Pathologist Sig nature Creatinine 1.20 0.7 - 1.5 mg/dl [facility] GFR, Calculated >60 ml/min/1.73m2 [facility] Specimen Blood specimen (specimen) Performing Organization Address City/[facility]/ZIP Code Phon e Number [facility] [address] [place] [address] SERVICES [facility] [address] [place] [address] BUN (09/05/2010 10:15 EST) Pathologist Sig nature BUN 18 10 - 26 mg/dl [facility] Specimen Blood specimen (specimen) Performing Organization Address City/[facility]/ZIP Code Phon e Number [facility] [address] [place] [address] SERVICES [facility] [address] [place] [address] ELECTROLYTES (09/05/2010 10:15 EST) Pathologist Sig nature Sodium 137 136 - 145 mEq/L [facility] Potassium 4.0 3.5 - 5.0 mEq/L [facility] Chloride 97 96 - 110 mEq/L [facility] CO2 27 24 - 32 mEq/L [facility] Specimen Blood specimen (specimen) Performing Organization Address City/State/ZIP Code Phon e Number [facility] [address] [place] [address] SERVICES [facility] [address] [place] [address] CHEST PA AND LATERAL (09/05/2010 10:11 EST) Anatomical Region Laterality Modality Other Specimen Narrative [facility] - 09/05/2010 10:22 EST CHEST PA AND LAT ??Sep 05, 2010 10:11:00 AM Signs and Symptoms/Comments: < cough, fe drake, flulike sxs > Comparison: None Findings: PA and lateral upright views o f the chest demonstrate normal size of the cardiomediastinal claudia houette. The pulmonary vascularity is within normal limits. The lungs are clear. There is no evidence of infiltrate. The bony thorax is unremarkable. Impression: Negative chest exam. Procedure Note 09/05/2010 CHEST PA AND LAT Sep 05, 2010 10:11:00 A M Signs and Symptoms/Comments: < cough, fe drake, flulike sxs > Comparison: None Findings: PA and lateral upright views o f the chest demonstrate normal size of the cardiomediastinal claudia houette. The pulmonary vascularity is within normal limits. The lungs are clear. There is no evidence of infiltrate. The bony thorax is unremarkable. Impression: Negative chest exam. Performing Organization Address City/State/ZIP Code Phon e Number [facility] documented in this encounter Visit Diagnoses Diagnosis Vomiting Vomiting alone Diarrhea Dehydration Leukocytosis Leukocytosis, unspecified documented in this encounter Administered Medications Inactive Administered Medications - up to 3 most recent administrations Medication Order MAR Action Action Date Dose Rate Site acetaminophen (TYLENOL) tablet 650 Given 09/05/2010 15:57 EST 65 0 mg mg 650 mg, oral, NOW X1, 1 dose, On 09/05/10 at 1600, STAT acetaminophen (TYLENOL) tablet 975 mg Given 09/05/2010 10:36 EST 975 mg 975 mg, oral, NOW X1, 1 dose, On Sun09/05/10 at 1030, STAT Ibuprofen 600 mg Tab STARTER PACK Given 09/05/2010 15:57 EST 1 Package 1 Package, oral, NOW X1, 1 dose, On Sun09/05/10 at 1615, STAT ketorolac (TORADOL) injection 15 mg Given 09/05/2010 10:36 EST 15 mg 15 mg, intravenous, NOW X1, 1 dose, On Sun09/05/10 at 1030, STAT ondansetron (PF) (ZOFRAN) injection 4 mg Given 09/05/2010 10:36 EST 4 mg 4 mg, intravenous, NOW X1, 1 dose, On Sun09/05/10 at 1030, STAT ondansetron 4 mg ODT tab STARTER PACK Given 09/05/2010 15:57 EST 1 Package 1 Package, oral, NOW X1, 1 dose, On Sun09/05/10 at 1615, STAT oseltamivir (TAMIFLU) capsule 75 mg Given 09/05/2010 11:05 EST 75 mg 75 mg, oral, NOW X1, 1 dose, On Sun09/05/10 at 1130, STAT sodium chloride 0.9 % 1,000 mL BOLUS Given 09/05/2010 12:30 EST 1,000 mL 1,000 mL, intravenous, ONCE, 1 dose, Starting on Sun09/05/10 at 1105, Until Sun09/05/10 at 1230, STAT sodium chloride 0.9 % 1,000 mL BOLUS Given 09/05/2010 14:12 EST 1,000 mL 1,000 mL, intravenous, ONCE, 1 dose, Starting on Sun09/05/10 at 1354, Until Sun09/05/10 at 1412, STAT sodium chloride 0.9 % 2,000 mL BOLUS Given 09/05/2010 10:36 EST 2,000 mL 2,000 mL, intravenous, ONCE, 1 dose, Starting on Sun09/05/10 at 1030, Until Sun09/05/10 at 1036, STAT documented in this encounter Discontinued Medications Medication Sig Discontinue Reason Start Date End Date azithromycin (ZITHROMAX) Take 1 Tab by mouth Therapy completed 06/1109/05/2010 250 mg tablet daily. Take 2 tablets (500 mg) on Day 1, followed by 1 tablet (250 mg) once daily on Days 2 through 5. documented as of this encounter Active and Recently Administered Medications Times are shown in EST. Scheduled Medication Order 09/03/2010 09/04/2010 09/05/2010 acetaminophen (TYLENOL) tablet 650 mg (COMPLETED) 1557 (Given - Provider: Steve Rodgers RN) 650 mg, Oral, NOW X1, 1 dose, Sun09/05/10 at 1600 acetaminophen (TYLENOL) tablet 975 mg (COMPLETED) 1036 (Given - Provider: Farrah Antonio RN) 975 mg, Oral, NOW X1, 1 dose, Sun09/05/10 at 1030 Ibuprofen 600 mg Tab STARTER PACK (COMPLETED) 1557 (Given - Provider: Steve Rodgers RN) 1 Package, oral, NOW X1, 1 dose, On Sun09/05/10 at 1615, STAT ketorolac (TORADOL) injection 15 mg (COMPLETED) 1036 (Given - Provider: Farrah Antonio RN) 15 mg, Intravenous, NOW X1, 1 dose, Sun09/05/10 at 1030 ondansetron (PF) (ZOFRAN) injection 4 mg (COMPLETED) 1036 (Given - Provider: Farrah Antonio RN) 4 mg, Intravenous, NOW X1, 1 dose, Sun09/05/10 at 1030 ondansetron 4 mg ODT tab STARTER PACK (COMPLETED) 1557 (Given - Provider: Steve Rodgers RN) 1 Package, oral, NOW X1, 1 dose, On Sun09/05/10 at 1615, STAT oseltamivir (TAMIFLU) capsule 75 mg (COMPLETED) 1105 (Given - Provider: Farrah Antonio RN) 75 mg, Oral, NOW X1, 1 dose, Sun09/05/10 at 1130 sodium chloride 0.9 % 1,000 mL BOLUS (COMPLETED) 1230 (Given - Provider: Farrah Antonio RN) 1,000 mL, Intravenous, ONCE, 1 dose sodium chloride 0.9 % 1,000 mL BOLUS (COMPLETED) 1412 (Given - Provider: Ammon Chin RN) 1,000 mL, Intravenous, ONCE, 1 dose sodium chloride 0.9 % 2,000 mL BOLUS (COMPLETED) 1036 (Given - Provider: Farrah Antonio, RN)1228 (Completed - Provider: Farrah Antonio RN) 2,000 mL, Intravenous, ONCE, 1 dose, First dose on 09/05/10 at 1030 documented in this encounter Orders Nursing Count Last Ordered Date First Ordered Date INSERT PERIPHERAL IV 1 09/05/2010 VITAL SIGNS 1 09/05/2010 documented in this encounter Care Teams Imaging Science Professor Relationship Specialty Start Date End Date Galo Bello MD PCP - General 06/30/10 08/27/[address] [place] [phone] documented as of this encounter
--- OUTSIDE RECORDS SUMMARY | 2022-03-21 09:37 | XMS_ITS | Encounter Summary ---
:[address] [facility] Address [address] [place] [address] Care Team Providers Name Role Phone Galo Bello MD Primary Care Provider Reason for Visit Reason Onset Date Comments Appointment Related 05/10/2011 patient's P.T. appt was bumped on 05/02 and he no-showed on 05/10. Encounter Details Date Type Department Care Team Description 05/10/2011 Telephone [facility] Maude Leary, PT Appointment Related Rehabilitation Therapy - EDUARDO FARIAS ( patient's P.T. appt Medical Office [facility] was bumped on 05/[address] and he no-showed on [address] 05/10.) [phone] [place] [address] Social History Tobacco Use Types Packs/Day Years Used Date Current Every Day Smoker 1 17 Smokeless Tobacco: Never Used Alcohol Use Standard Drinks/Week Comments Yes 0 (1 standard drink = 0.6 oz pure alcoho l) Sex Assigned at Date Recorded Not on file documented as of this encounter Miscellaneous Notes Telephone Encounter - Misha Floresny Tai - 05/10/2011 1442 EDT Patient's P.T. appt was bumped on 05/02 and he no-showed on 05/10. The patient phone number is not working. I have mailed out a letter to this patient to have him confirm his next P.T. appointment on 05/18/11 at 1 pm. I also informed this patient in this letter, that if he no showed for the appointment on 05/18/11. He will need a new referral from his PCP to start P.T. Again. documented in this encounter Plan of Treatment Upcoming Encounters Date Type Specialty Care Team Description 05/08/2022 Telemedicine Sleep Medicine El Sinclair Jr., MD [facility], Level [address] [place], [place] [phone] (Wo rk) documented as of this encounter Visit Diagnoses Not on filedocumented in this encounter Care Teams Ed Manager Relationship Specialty Start Date End Date Galo Bello MD PCP - General 06/30/10 08/27/[address] [place] [address] [address] [place] [phone] documented as of this encounter
--- OUTSIDE RECORDS SUMMARY | 2022-03-21 09:37 | XMS_ITS | Encounter Summary ---
:1975 Author Organization [facility] Address [address] [place] [address] Care Team Providers Name Role Phone None, Provider Primary Care Provider Unavailable Encounter Details Date Type Department Care Team Description 01/22/2013 Results Only [facility] Mauro Jacobson, Laboratory Services - [address] [place] [address] [place], [place] [phone] (Wo rk) Social History Tobacco Use Types [...] Telemedicine Sleep Medicine El Sinclair Jr., MD [address] [place] [address], [address] [place], [place] [phone] (Wo rk) documented as of this encounter Procedures Procedure Name Priority Date/Time Associated Comments Diagnosis HEPATITIS C AB W REFLEX Routine 01/22/2013 15:05 Results for this TO HCV RNA BY PCR EDT procedure are in the results section. HEPATITIS A TOTAL Routine 01/22/2013 15:05 Result s for this ANTIBODY W REFLEX EDT procedure are in the results section. TISSUE TRANSGLUTAMINASE Routine 01/22/2013 15:05 Results for this AB EDT procedure are i n the results section. HELICOBACTER PYLORI IGG Routine 01/22/2013 15:05 Results for this ANTIBODY EDT procedure are i n the results section. HEPATITIS B CORE Routine 01/22/2013 15:05 Results for this ANTIBODY (TOTAL) EDT procedure a re in the results section. HEPATITIS B SURFACE Routine 01/22/2013 15:05 Resu lts for this ANTIBODY EDT procedure are i n the results section. SED RATE Routine 01/22/2013 15:05 Results for this EDT procedure are i n the results section. HIGH SENSITIVITY Routine 01/22/2013 15:05 Results for this C-REACTIVE PROTEIN EDT procedure are in (CARDIOVASCULAR DISEASE) the results section. documented in this encounter Results TTG AB, IGA, S (01/22/2013 15:05 EDT) Pathologist [facility] [place] tTG Ab, IgA, S <1.2 <4.0 EDU[facility]ARI[facility] Comment: (Negative) LAB Performed by: [facility] [place], [address], [place], [place] [address], Assembler Watch Train: Cait Rodríguez, Ph.D. Specimen Performing Organization Address City/[facility] Code Phon e Number [facility] [address] [place] [address] SERVICES [facility] [address] [place] [address] SED. RATE:SHU (01/22/2013 15:05 EDT) Pathologist [facility] [place] Sed. Rate 10 0 - 15 mm/hr [facility] Shu Comment: Note: Sample greater than 4 hrs old (but less than 12 hrs) when tested. If refrigerated, sample is stable when tested within 12 hours of collection. Specimen Performing Organization Address City/[facility] Code Phon e Number [facility] [address] [place] [address] SERVICES [facility] [address] [place] [address] C-REACTIVE PROTEIN HIGH SENSITIVITY (01/22/2013 15:05 EDT) Pathologist [facility] [place] High Sensitivity 11.1 mg/L [facility]ARI[facility] CRP Comment: LAB Reference Range: <1.0 mg/L Low risk 1.0-3.0 mg/L Average risk >3.0 mg/L High risk >10.0 mg/L Acute inflammation Specimen Performing Organization Address City/[facility] Phon e Number [facility] [address] [place] [address] SERVICES [facility] [address] [place] [address] HELICOBACTER PYLORI IGG ANTIBODY (01/22/2013 15:05 EDT) H. Pylori IgG Ab NegativeComment: [facility] Assayed utilizing the [employer] system. Specimen Performing Organization Address City/[facility]/ZIP Code Phon e Number [facility] [address] [place] [address] SERVICES [facility] [address] [place] [address] HEPATITIS C ANTIBODY (01/22/2013 15:05 EDT) Pathologist Sig nature Hepatitis C Ab NegativeComment: [facility] Reference Range: Negative Specimen Performing Organization Address City/[facility]/ZIP Code Phon e Number [facility] [address] [place] [address] SERVICES [facility] [address] [place] [address] HEPATITIS B CORE ANTIBODY (01/22/2013 15:05 EDT) Hep B Core Ab Negative [facility] Comment: Reference Range: ??Negative Interpretation depends on clinical setting. Specimen Performing Organization Address City/[facility]/ZIP Code Phon e Number [facility] [address] [place] [address] SERVICES [facility] [address] [place] [address] HEPATITIS B SURFACE ANTIBODY (01/22/2013 15:05 EDT) Hepatitis B Surface Negative [facility] Ab Comment: Reference Range: Unvaccinated: ??Negative Vaccinated: ??Positive HBs Antibody, Quant <5.0 mIU/mL [facility] Comment: Patient is presumed to not be immune to infection with HBV. Reference Range: Positive: >=12.0 mIU/mL Indeterminate: >=5.0 to <12.0 mIU/mL Negative: <5.0 mIU/mL Specimen Performing Organization Address City/[facility]/ZIP Code Phon e Number [facility] [address] [place] [address] SERVICES [facility] [address] [place] [address] HEPATITIS A TOTAL ANTIBODY (01/22/2013 15:05 EDT) Pathologist Sig nature Hep A Antibody NegativeComment: [facility] Reference Range: Negative Specimen Performing Organization Address City/State/ZIP Code Phon e Number [facility] [address] [place] [address] SERVICES [facility] [address] [place] [address] documented in this encounter Visit Diagnoses Not on filedocumented in this encounter Care Teams Air Traffic Control Supervisor Relationship Specialty Start Date End Date None, Provider PCP - General 08/29/11 05/05/13 documented as of this encounter
[2022-03-21 09:46] LABS: D-Dimer 423 ng/mlFEU (<500)
[2022-03-21 09:49] LABS: COVID-19 PCR Negative (Negative)
--- NOTE | 2022-03-21 11:00 | RT.EKG_ITS ---
APPROVED REPORT Exam: Resting ECG Reason for Exam: chest pain Patient Location: E HR:79 bpm ECG Measurements Heart Rate 79 AXIS ME 163 P 39 QRSd 92 QRS 49 QT 379 T 45 QTc 434 Conclusion Sinus rhythm...normal P axis, V-rate 60- 99 Low voltage, precordial leads...precordial leads <1.0mV. Sinus. Normal axis. No STEMI. I have reviewed and interpreted ECG and agree with software generated interpretation.
[2022-03-21 11:42] LABS: Troponin I < 50 ng/L (<or=60)
[2022-03-21] MEDS: Acetaminophen 325 MG TAB 650 MG PO (12:01)
== END 2022-03-21 12:04 | disposition home or self-care (01) ==
PROVIDERS: Emergency Provider Physician Assistant
DX: H60.92 Unspecified otitis externa, left ear (principal); K08.89 Other specified disorders of teeth and supporting structures; R07.9 Chest pain, unspecified; R53.1 Weakness; F17.210 Nicotine dependence, cigarettes, uncomplicated; Z20.822 Contact with and (suspected) exposure to COVID-19
CPT/HCPCS: 36415; 80053; 87635; 93005; 96361; 96374; 99284; 71045; 83735; 83880; 84484; 85025; 85379; 93010; J2405

== ENCOUNTER 2024-07-10 12:05 | Emergency (ER) | payer MEDICAID, SELFPAY ==
--- NOTE | 2024-07-10 12:00 | RT.EKG_ITS ---
APPROVED REPORT Exam: Resting ECG Reason for Exam: [facility] Patient Location: E HR:108 bpm ECG Measurements Heart Rate 108 AXIS DE 164 P 60 QRSd 90 QRS 79 QT 317 T 46 QTc 425 Conclusion Sinus tachycardia...rate> 99 Low voltage, precordial leads...precordial leads <1.0mV
[2024-07-10 12:07] VITALS: BP 158/59; PULSE 110; RESP 22; TEMP 39.4; O2SAT 98
--- NOTE | 2024-07-10 12:20 | ED.GENADUL_ITS ---
Discharge Plan Disposition Patient Disposition: Home Condition: Stable Discharge Details Clinical Impression: CAP (community acquired pneumonia) Primary Care Provider: Jj Lopez ED Provider: Rj Locke Home Meds and New Rx's Prescriptions: New levofloxacin 750 mg tablet 750 mg PO DAILY Qty: 5 0RF Continued cyclobenzaprine 10 mg tablet 1 tab PO HS Patient Comments: TAKE 1 TABLET BY MOUTH AT BEDTIME gabapentin 600 mg tablet 1 tab PO DAILY Patient Comments: TAKE ONE TABLET BY MOUTH TWICE A DAY lisinopril 20 mg tablet 1 tab PO DAILY Patient Comments: TAKE ONE TABLET BY MOUTH EVERY DAY meloxicam 7.5 mg tablet 1 tab PO DAILY Patient Comments: TAKE ONE TABLET BY MOUTH TWICE A DAY No Action omeprazole 40 mg capsule,delayed release(DR/EC) 1 cap PO BID Patient Comments: TAKE ONE CAPSULE BY MOUTH TWICE A DAY amoxicillin-pot clavulanate 875-125 mg tablet 1 tab PO BID Qty: 14 0RF Discharge Instructions Additional Instructions: You are being treated for a lung infection called pneumonia Make sure you drink plenty of fluids to stay hydrated. You can take 1000 mg of acetaminophen and 600 mg of ibuprofen every 6 hours as needed Follow-up with your primary care provider especially if not improving within a week If you feel more ill, have severe worsening shortness of breath or persistent vomiting return to the emergency department for reevaluation. HPI General Mode of arrival: EMS . Date/Time Provider Initiated Documentation: 07/10/24 12:13 . Limitations to Documentation: no limitations . Information obtained by: patient . History of Present Illness 49 year old M presents to the emergency department with the chief complaint of cough,fever,general weakness, described as moderate, Patient started experiencing this hour(s) (7) and it has been constant. No relieving factors improve symptom(s), No exacerbating factors reported . Patient notes denies chest pain and shortness of breath. Patient did receive the following treatments prior to arrival, none Related Data Home Medications ?Medication ?Instructions ?Recorded ?Confirmed amoxicillin 875 mg-potassium 1 tab PO BID #14 tabs 03/21/22 clavulanate 125 mg tablet cyclobenzaprine 10 mg tablet 1 tab PO HS 03/21/22 03/21/22 gabapentin 600 mg tablet 1 tab PO DAILY 03/21/22 03/21/22 lisinopril 20 mg tablet 1 tab PO DAILY 03/21/22 03/21/22 meloxicam 7.5 mg tablet 1 tab PO DAILY 03/21/22 03/21/22 omeprazole 40 mg capsule,delayed 1 cap PO BID 03/21/22 03/21/22 release levofloxacin 750 mg tablet 750 mg PO DAILY #5 tabs 07/10/24 Previous Rx's ?Medication ?Instructions ?Recorded amoxicillin 875 mg-potassium 1 tab PO BID #14 tabs 03/21/22 clavulanate 125 mg tablet levofloxacin 750 mg tablet 750 mg PO DAILY #5 tabs 07/10/24 Allergies Allergy/AdvReac Type Severity Reaction Status Date / Time cephalexin (From Keflex) Allergy Severe GI Bleeding Unverified 07/10/24 12:12 General Stated Complaint: RespSymp HAYLEY: 4 Review of Systems All systems reviewed & are unremarkable except as noted in HPI and below Constitutional Constitutional: Reports chills, Reports fever(s) and Reports weakness Cardiovascular Cardiovascular: Denies chest pain and Denies dyspnea Respiratory Respiratory: Reports cough and Denies dyspnea Gastrointestinal Gastrointestinal: Denies abdominal pain, Denies nausea and Denies vomiting Neurologic Neurologic: Reports weakness Exam Const General: no acute distress Orientation: alert [facility] Head: normal to inspection Ears: external ears normal General nose exam: external nose normal Mouth: moist mucous membranes Eyes General: appearance normal, both eyes and all related structures Neck Neck: normal visual inspection Resp Effort & Inspection: normal respiratory effort and able to speak in complete sentences Auscultation: no wheezes Cardio Jugular venous pressure: no JVD Rate: regular rate Heart Sounds: no murmurs GI Palpation: soft and nontender Skin General skin exam: no rashes or lesions noted Neuro General: patient alert and patient oriented x3 Extrem General: normal to inspection Psych Mental Status: mental status grossly normal Course Vital Signs Vital signs: Vital Signs Temperature 39.4 C H 07/10/24 12:07 Pulse 110 H 07/10/24 12:07 Respiratory Rate 07/10/24 12:07 Blood Pressure 158/59 H 07/10/24 12:07 Pulse Oximetry 98 07/10/24 12:07 Temperature 39.4 C H 07/10/24 12:07 Pulse 110 H 07/10/24 12:07 Respiratory Rate 07/10/24 12:07 Blood Pressure 158/59 H 07/10/24 12:07 Pulse Oximetry 98 07/10/24 12:07 Medical Decision Making 49-year-old male with a history of hypertension and smoking who comes in with chief complaint of feeling general malaise and having a cough that started this morning and also fever and chills. He denies any vomiting, chest pain, difficulty breathing, neck stiffness, IV drug use. He is alert and oriented on arrival. 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 He is noted to be febrile here to 39.4, he has no focal neurological deficits, clear lung sounds, soft nontender abdomen. No meningismus. Given his cough and fever I suspect pneumonia versus COVID, will check CBC, CMP, procalcitonin and chest x-ray and a Fluvid. He has no neck stiffness or meningismus to suggest DOME[employer] TRAVEL CONSULTANT infection. X-ray limited but no significant acute findings, labs show white count of 15, Fluvid negative. Procalcitonin pending but he has had stable vital signs being here in feels significantly better after ibuprofen and Tylenol eating and drinking without issues. Given his cough and fever I will initiate antibiotics to cover for early community-acquired pneumonia. He is stable for discharge and will follow-up with his PCP, return precautions given. Differential Diagnosis Differential Diagnosis: COVID, flu, pneumonia Lab Data Lab results reviewed: Yes I reviewed the patient's lab results. ECG Data Attestation: I personally reviewed and interpreted this ECG (s) as follows: Prior ECG tracings: available for review Interpretation: Sinus rhythm, rate of 108, [place] 164, no STEMI Quality:SDOH Health Related Social Needs: No Data to Display [employer] All Active Problems (Updated 07/10/24 @ 14:59 by Rj Locke MD) CAP (community acquired pneumonia) (Acute) Social History Smoking/Tobacco Use Status: Current every day Tobacco Type: cigarettes Smoking risk assessment performed?: Yes Alcohol Intake: never Drug use: Never Substance use type: does not use Do you feel safe at home: Yes Do you feel safe in your relationship?: Yes
--- NOTE | 2024-07-10 12:54 | DI.RAD_ITS ---
Exam(s) XR PORTABLE CHEST AP EXAM: XR PORTABLE CHEST AP CLINICAL HISTORY: cough, fever TECHNIQUE: 2D digital imaging was performed. COMPARISON: CR XR PORTABLE CHEST AP from 03/21/2022 FINDINGS: Extremely limited exam due to under penetration. LUNGS: No gross area of consolidation. Mild infiltrates are not excluded. No pleural abnormality se en. HEART: Normal size. AORTA: Normal diameter. BONES: Unremarkable for age. Soft tissues: Unremarkable. IMPRESSION: Limited exam. No gross evidence of acute abnormality.. DATA REPOSITORY: RADIATION DOSE DELIVERED:
[2024-07-10 12:59] LABS: COVID-19 PCR Negative (Negative); Influenza A PCR Negative (Negative); Influenza B PCR Negative (Negative); RSV PCR Negative (Negative)
[2024-07-10 13:10] LABS: Source Nasopharynx
--- NOTE | 2024-07-10 13:29 | NUR.NOTE ---
Haylieher Ko, Nursing Note:
[2024-07-10 13:49] LABS: Abs Immature Grans 0.08 10^3/uL (0.0-0.06); Absolute Basophil Count 0.05 10^3/uL (0.0-0.2); Absolute Eosinophil Count 0.02 10^3/uL (0.0-0.7); Absolute Monocyte Count 0.81 10^3/uL (0.1-0.8); Basophils % 0.3 %; Eosinophils % 0.1 %; HCT 39.3 % (40.0-50.0); HGB 12.5 g/dL (13.5-17.5); Immature Grans % 0.5 %; Lymphocytes % 9.3 %; MCH 27.2 pg (27.0-33.0); MCHC 31.8 % (32.0-36.0); MCV 85 fL (80-95); Monocytes % 5.2 %; Neutrophils % 84.6 %; Platelet Count 226 10^3/uL (130-400); RDW 14.5 % (11.8-14.1); RDW-SD 44.8 fL; WBC 15.62 10^3/uL (4.4-10.8)
[2024-07-10 13:53] LABS: Absolute Lymphocyte Count 1.45 10^3/uL (1.2-3.4); Absolute Neutrophil Count 13.21 10^3/uL (1.2-6.7)
[2024-07-10] MEDS: Ibuprofen 600 MG TAB PO (14:12)
[2024-07-10] MEDS: Acetaminophen 500 MG TAB 1000 MG PO (14:12)
[2024-07-10 14:18] LABS: ALT 30 U/L (16-63); AST 13 U/L (15-37); Alkaline Phosphatase 98 U/L (46-116); Anion Gap 8.4 mmol/L (3-11); BUN 15 mg/dL (7-18); Bilirubin, Total 0.43 mg/dL (0.2-1.0); CO2 29.6 mmol/L (21.0-32.0); CREATININE 1.3 mg/dL (0.70-1.30); Calcium 9.1 mg/dL (8.5-10.1); Chloride 105 mmol/L (98-107); Estimated GFR 68.19 (mL/min/1.73m2); Glucose 123 mg/dL (74-106); Magnesium 2.1 mg/dL (1.8-2.4); Sodium 143 mmol/L (136-145); Total Protein 6.9 g/dL (6.4-8.2)
[2024-07-10] MEDS: levoFLOXacin 500 MG, levoFLOXacin 250 MG 750 MG PO (15:00)
[2024-07-10 15:09] LABS: Procalcitonin 0.2 ng/mL
== END 2024-07-10 16:12 | disposition home or self-care (01) ==
PROVIDERS: Emergency Provider Emergency Medicine
DX: J18.9 Pneumonia, unspecified organism (principal); R53.1 Weakness; R05.1 Acute cough; R50.9 Fever, unspecified; F17.200 Nicotine dependence, unspecified, uncomplicated; I10 Essential (primary) hypertension
CPT/HCPCS: 80053; 84145; 87637; 93005; 99284; 71045; 83735; 85025; 93010

== ENCOUNTER 2024-10-13 14:03 | Emergency (ER) | payer MEDICAID, SELFPAY ==
[2024-10-13 14:10] VITALS: BP 170/82; PULSE 85; RESP 16; TEMP 36.5; O2SAT 95
[2024-10-13 14:17] VITALS: BP 170/82; PULSE 85; RESP 16; TEMP 36.5; O2SAT 95
--- NOTE | 2024-10-13 14:32 | ED.GENADUL_ITS ---
Discharge Plan Disposition Patient Disposition: Home Condition: Stable Discharge Details Clinical Impression: Acute otitis media of left ear with perforated tympanic membrane Primary Care Provider: Jj Lopez ED Provider: Colten Robles Home Meds and New Rx's Prescriptions: New amoxicillin-pot clavulanate 875-125 mg tablet 1 tab PO BID Qty: 19 0RF Continued omeprazole 40 mg capsule,delayed release(DR/EC) 1 cap PO BID Patient Comments: TAKE ONE CAPSULE BY MOUTH TWICE A DAY meloxicam 7.5 mg tablet 1 tab PO DAILY Patient Comments: TAKE ONE TABLET BY MOUTH TWICE A DAY atorvastatin 20 mg tablet 20 mg PO DAILY Patient Comments: TAKE ONE TABLET BY MOUTH EVERY DAY (NOT WITH GRAPEFRUIT) metformin 850 mg tablet 850 mg PO BID Patient Comments: TAKE ONE TABLET BY MOUTH TWICE A DAY WITH MEALS amlodipine 10 mg tablet 10 mg PO DAILY Patient Comments: TAKE ONE TABLET BY MOUTH EVERY DAY AT NIGHT metoprolol tartrate 50 mg tablet 50 mg PO BID Patient Comments: TAKE ONE TABLET BY MOUTH TWICE A DAY lisinopril 40 mg tablet 40 mg PO DAILY Patient Comments: TAKE ONE TABLET BY MOUTH EVERY DAY Discontinued gabapentin 600 mg tablet 1 tab PO DAILY Patient Comments: TAKE ONE TABLET BY MOUTH TWICE A DAY lisinopril 20 mg tablet 40 mg PO DAILY Patient Comments: TAKE ONE TABLET BY MOUTH EVERY DAY levofloxacin 750 mg tablet 750 mg PO DAILY Qty: 5 0RF Discharge Instructions Instructions: Ruptured Eardrum ED, Ear Infections in Adults (DC) Additional Instructions: You were given the initial dose of antibiotic today in the emergency department. Please fill prescription at the pharmacy. Your next dose of antibiotic is tonight. Continue as prescribed and complete full course. Your blood pressure was elevated today at 170/82. Please be sure to discuss this with your primary care physician. Modifications to your antihypertensive blood pressure medicine may be necessary. Please follow-up with your primary care physician. Call today to arrange timely follow-up. Return to the emergency department immediately for any worsening or new concerning symptoms. Referrals: Jj Lopez [Primary Care Provider] - [facility] General Mode of arrival: ambulatory . Date/Time Provider Initiated Documentation: 10/13/24 14:04 . Limitations to Documentation: no limitations . Information obtained by: patient . HPI Narrative: 49-year-old male with history of frequent ear infections, prior eustachian tube surgery, hypertension, presents with chief complaint of ear infection with drainage. Patient notes last week his relatives had COVID and he had COVID-like illness. He continues to have cough but is feeling better. He had some ear congestion and then experienced purulent discharge from his left ear yesterday. No associated fever. No headache. He does not have ear pain but notes that he typically does not have otalgia with ear infections. Related Data Home Medications ?Medication ?Instructions ?Recorded ?Confirmed meloxicam 7.5 mg tablet 1 tab PO DAILY 03/21/22 10/13/24 omeprazole 40 mg capsule,delayed 1 cap PO BID 03/21/22 10/13/24 release amlodipine 10 mg tablet 10 mg PO DAILY 10/13/24 10/13/24 amoxicillin 875 mg-potassium 1 tab PO BID #19 tabs 10/13/24 clavulanate 125 mg tablet atorvastatin 20 mg tablet 20 mg PO DAILY 10/13/24 10/13/24 lisinopril 40 mg tablet 40 mg PO DAILY 10/13/24 10/13/24 metformin 850 mg tablet 850 mg PO BID 10/13/24 10/13/24 metoprolol tartrate 50 mg tablet 50 mg PO BID 10/13/24 10/13/24 Previous Rx's ?Medication ?Instructions ?Recorded amoxicillin 875 mg-potassium 1 tab PO BID #19 tabs 10/13/24 clavulanate 125 mg tablet Allergies Allergy/AdvReac Type Severity Reaction Status Date / Time cephalexin (From Keflex) Allergy Severe GI Bleeding Unverified 10/13/24 14:12 General Stated Complaint: EarProblem HAYLEY: 4 Review of Systems All systems reviewed & are unremarkable except as noted in HPI and below Constitutional Constitutional: Denies fever(s) ENT Ears, Nose, Mouth, and Throat: Reports as per HPI Exam Const General: cooperative and no acute distress [facility] Ears: TM normal on the right, mastoids normal, no periauricular adenopathy and TM abnormal perforated with clear discharge General nose exam: external nose normal Mouth: moist mucous membranes Throat: posterior oropharynx abnormal erythema; no exudates Eyes Conjunctivae: normal conjunctivae Sclera: normal sclerae Neck Neck: trachea midline Resp Auscultation: clear to auscultation bilaterally, no rales, no rhonchi and no wheezes Cardio Rate: regular rate and not tachycardic Rhythm: regular rhythm GI Palpation: soft, not firm, no guarding, no masses, not rigid and nontender Skin General skin exam: no rashes or lesions noted Neuro General: patient alert, patient awake and tone normal Course Vital Signs Vital signs: Vital Signs Temperature 36.5 C 10/13/24 14:10 Pulse 85 10/13/24 14:10 Respiratory Rate 16 10/13/24 14:10 Blood Pressure 170/82 H 10/13/24 14:10 Pulse Oximetry 95 10/13/24 14:10 Temperature 36.5 C 10/13/24 14:17 Temperature Source Oral 10/13/24 14:17 Pulse 85 10/13/24 14:17 Respiratory Rate 16 10/13/24 14:17 Blood Pressure 170/82 H 10/13/24 14:17 Blood Pressure Position Sitting 10/13/24 14:17 Pulse Oximetry 95 10/13/24 14:17 Oxygen Delivery Method Room Air 10/13/24 14:17 Oxygen Flow Rate 0 10/13/24 14:17 Pain Level 0 10/13/24 14:17 Medical Decision Making 1440 --49-year-old male with history of frequent ear infections, prior eustachian tube surgery, smoker, here with influenza-like illness last week, family members apparently sick with COVID, now with purulent discharge from his left ear over the past day. Patient concern for inner ear infection. Patient is afebrile and saturating well in no respiratory distress. He does have a cough but notes this is not different than his typical chronic smoker's cough. Left TM with small area of perforation. Unclear if patient has been on antibiotic recently, patient is poor historian. He notes he thinks he was on an antibiotic for ear infection within the past couple months. Given history and acute perforation, will treat with Augmentin. Of note, patient has allergy listed to Keflex but states he has tolerated amoxicillin and Augmentin well. Rapid COVID and influenza testing negative. Plan for discharge with outpatient follow-up with ENT. Treatment plan was discussed with the patient. Usual and customary discharge instructions were reviewed. Quality:SDOH Health Related Social Needs: No Data to Display PFSH All Active Problems (Updated 10/13/24 @ 14:35 by Colten Robles MD) Acute otitis media of left ear with perforated tympanic membrane (Acute) Social History Smoking/Tobacco Use Status: Current every day Tobacco Type: cigarettes Smoking risk assessment performed?: Yes Alcohol Intake: never Drug use: Never Substance use type: does not use Do you feel safe at home: Yes Do you feel safe in your relationship?: Yes
[2024-10-13] MEDS: Amoxicillin 875/Clav. 125 TAB PO (14:39)
[2024-10-13 14:43] VITALS: BP 165/72; PULSE 80; RESP 16; O2SAT 96
[2024-10-13 15:29] LABS: COVID-19 PCR Negative (Negative); Influenza A PCR Negative (Negative); Influenza B PCR Negative (Negative); RSV PCR Negative (Negative)
[2024-10-13 15:32] LABS: Source Nasopharynx
== END 2024-10-13 14:45 | disposition home or self-care (01) ==
PROVIDERS: Emergency Provider Student in an Organized Health Care Education/Training Program
DX: H66.92 Otitis media, unspecified, left ear (principal); H72.92 Unspecified perforation of tympanic membrane, left ear; I10 Essential (primary) hypertension
CPT/HCPCS: 87637; 99283